=== PATIENT | male | born 1995 | race African-American/Black ===

== ENCOUNTER 2020-03-17 23:38 | Emergency (ER) | payer MEDICAID ==
[~2020-03-17] VITALS: Ht 195 cm; Wt 102.0 kg
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
[2020-03-18 00:34] LABS: BASOPHILS % (AUTO) 0 % (0-10); EOSINOPHILS # (AUTO) 0.2 10^3/uL (0.0-0.3); EOSINOPHILS % (AUTO) 3 % (0-10); HEMATOCRIT 43 % (40-54); HEMOGLOBIN 14.7 G/DL (13.3-17.7); LYMPHOCYTES % (AUTO) 47 % (12-44); MEAN CORPUSCULAR HEMOGLOBIN 30 PG (25-34); MEAN CORPUSCULAR HGB CONC 35 G/DL (32-36); MEAN CORPUSCULAR VOLUME 87 FL (80-99); MEAN PLATELET VOLUME 11.3 FL (7.4-10.4); MONOCYTES # (AUTO) 0.7 X 10^3 (0.0-1.0); MONOCYTES % (AUTO) 8 % (0-12); NEUTROPHILS # (AUTO) 3.6 X 10^3 (1.8-7.8); NEUTROPHILS % (AUTO) 42 % (42-75); PLATELET COUNT 223 10^3/uL (130-400); RED CELL DISTRIBUTION WIDTH 12.8 % (10.0-14.5); WHITE BLOOD COUNT 8.6 10^3/uL (4.3-11.0)
[2020-03-18 00:41] LABS: ALBUMIN 3.9 GM/DL (3.2-4.5); CHLORIDE 105 MMOL/L (98-107); POTASSIUM 3.9 MMOL/L (3.6-5.0); SODIUM 141 MMOL/L (135-145)
[2020-03-18 00:42] LABS: CALCIUM 9.1 MG/DL (8.5-10.1)
[2020-03-18 00:43] LABS: GLUCOSE 87 MG/DL (70-105)
[2020-03-18 00:44] LABS: CARBON DIOXIDE 25 MMOL/L (21-32); TOTAL PROTEIN 7.1 GM/DL (6.4-8.2)
[2020-03-18 00:45] LABS: BILIRUBIN,TOTAL 0.6 MG/DL (0.1-1.0)
[2020-03-18 00:47] LABS: ALKALINE PHOSPHATASE 50 U/L (40-136); CREATININE SERUM 1.03 MG/DL (0.60-1.30); GFR ESTIMATED > 60
[2020-03-18 00:48] LABS: BUN/CREATININE RATIO 7
[2020-03-18 00:50] LABS: ALANINE AMINOTRANSFERASE 20 U/L (0-55)
[2020-03-18] MEDS ORDERED: MELO15TA14 PO (01:55)
[2020-03-18 01:59] LABS: BILIRUBIN,URINE NEGATIVE (NEGATIVE); CLARITY,URINE SL CLOUDY; COLOR,URINE YELLOW; GLUCOSE, URINE (UA) NEGATIVE (NEGATIVE); KETONES,URINE NEGATIVE (NEGATIVE); LEUKOCYTE ESTERASE ,URINE NEGATIVE (NEGATIVE); NITRITE,URINE NEGATIVE (NEGATIVE); PROTEIN,URINE NEGATIVE (NEGATIVE)
[2020-03-18 02:05] VITALS: BP 129/62
[2020-03-18 02:05] LABS: BACTERIA,URINE NEGATIVE /HPF; SQUAMOUS EPITHELIAL CELL,UR RARE /HPF; WBC,URINE 0-2 /HPF
[2020-03-18 02:11] LABS: AMPHETAMINE SCREEN, URINE POSITIVE (NEGATIVE); BARBITURATE SCREEN URINE NEGATIVE (NEGATIVE); BENZODIAZEPINES SCREEN URINE NEGATIVE (NEGATIVE); CANNABINOID SCREEN, URINE POSITIVE (NEGATIVE); COCAINE SCREEN URINE NEGATIVE (NEGATIVE); METHADONE STAT NEGATIVE (NEGATIVE); METHAMPHETAMINE SCREEN URINE S POSITIVE (NEGATIVE); OPIATE SCREEN URINE NEGATIVE (NEGATIVE); OXYCODONE STAT NEGATIVE (NEGATIVE); PROPOXYPHENE STAT NEGATIVE (NEGATIVE); TRICYCLIC ANTIDEPRESSANTS SCRE NEGATIVE (NEGATIVE)
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
--- OUTSIDE RECORDS SUMMARY | 2020-03-18 15:22 | XMS REPORT ---
Author Author Jose Cruz Mercer Doctor Organization [facility] Address Unknown Phone Unavailable Care Team Providers Care Traffic Incident Management Manager Name Role Phone Migration, Doctor Unavailable Unavailable PROBLEMS Type Condition ICD9-CM Code VSM96-IV Code Onset Dates Condition S tatus SNOMED Code Problem Moderate intellectual disability F71 Active 10701732 Problem Attention-deficit hyperactiv ity disorder, predominantly inattentive type F90.0 Active 90122322 Problem Intermittent explosive disorder F63.81 Active 18830785 Problem Bipolar disorder, currently in remission, most recent episode unspecified F31.70 Active [id number] ALLERGIES No Information ENCOUNTERS Encounter Location Date Diagnosis [place] [address] [place] [id number] [place] [address] Oct, [place] [address] [place] [id number] [place] [address] Sep, Intermittent explosive disor jocelyn F63.81 ; Bipolar disorder, currently in remission, most recent episode unspecified F31.70 ; Attention- deficit hyperactivity disorder, predominantly inattentive type F90.0 ; Moderate intellectual disability F71 ; Encounter to establish care Z76.89 and Abrasion, left lower leg, sequela S80.812S [place] [address] [place] [id number] [place] [address] 15 Sep, 2019 [place] [address] [place] [id number] [place] [address] 06 Sep, 2019 Annual physical exam Z00.00 ; Abrasion of left lower leg, initial encounter S80.812A ; Cellulitis of left lower leg L03.116 ; Attention deficit hyperactivity disorder F90.9 ; Intermittent explosive disorder F63.81 and Intellectual disability F79 [place] [address] [place] [id number] [place] [address] Jul, Bipolar disorder F31.9 [place] [address] [place] [id number] [place] [address] Jul, Acute gastroenteritis K52.9 ; Intellectual disability F79 and Bipolar disorder F31.9 [facility] [address] [id number] [address] [place] [address] Jun, [facility] [address] [facility] [id number] [address] [place] [address] Jun, Bipolar disorder F31.9 [facility] [address] [facility] [id number] [address] [place] [address] May, Bipolar disorder F31.9 ; Int ellectual disability F79 and Attention- deficit hyperactivity disorder, predominantly inattentive type F90.0 [facility] [address] [facility] [id number] [address] [place] [address] May, [facility] [address] [facility] [id number] [address] [place] [address] May, Bipolar disorder F31.9 [facility] [address] [facility] [id number] [address] [place] [address] May, Bipolar disorder F31.9 ; Att ention-deficit hyperactivity disorder, predominantly inattentive type F90.0 and Moderate intellectual disability F71 [facility] [address] [facility] [id number] [address] [place] [address] Apr, Bipolar disorder F31.9 [facility] [address] [facility] [id number] [address] [place] [address] Apr, Bipolar disorder F31.9 and H igh risk medication use Z79.899 [facility] [address] [facility] [id number] [address] [place] [address] March, Bipolar disorder F31.9 and H igh risk medication use Z79.899 [facility] [address] [facility] [id number] [address] [place] [address] March, Bipolar disorder F31.9 [facility] [address] [place] [id number] [place] [address] March, Caries K02.9 [facility] [address] [id number] [address] [place] [address] March, Bipolar disorder F31.9 [facility] [address] [id number] [address] [place] [address] March, Bipolar disorder F31.9 [facility] [address] [id number] [address] [place] [address] Feb, Bipolar disorder F31.9 [facility] [address] [id number] [address] [place] [address] Feb, Bipolar disorder F31.9 ; Att ention-deficit hyperactivity disorder, predominantly inattentive type F90.0 and Moderate intellectual disability F71 [facility] [address] [id number] [address] [place] [address] Jan, Bipolar disorder F31.9 [place] [id number] [id number] [address] [place] [address] Jan, Bipolar disorder F31.9 [facility] [address] [id number] [address] [place] [address] Jan, Dental examination Z01.20 ; 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 status requiring routine preventive dental care K08.9 and Caries K02.9 [facility] [address] [id number] [address] [place] [address] Jan, [facility] [address] [id number] [address] [place] [address] Jan, Bipolar disorder F31.9 ; Mod erate intellectual disability F71 and Attention-deficit hyperactivity disorder, predominantly inattentive type F90.0 [facility] [address] [id number] [address] [place] [address] Dec, Bipolar disorder, currently in remission, most recent episode unspecified F31.70 [facility] [address] [id number] [address] [place] [address] Dec, Bipolar disorder, currently in remission, most recent episode unspecified F31.70 [facility] [address] [id number] [address] [place] [address] Dec, Bipolar disorder, currently in remission, most recent episode unspecified F31.70 [facility] [address] [id number] [address] [place] [address] Dec, [facility] [address] [id number] [address] [place] [address] Dec, Bipolar disorder, currently in remission, most recent episode unspecified F31.70 [facility] [address] [id number] [address] [place] [address] Nov, Bipolar disorder, currently in remission, most recent episode unspecified F31.70 [facility] [address] [id number] [address] [place] [address] Nov, [facility] [address] [id number] [address] [place] [address] Nov, [facility] [address] [id number] [address] [place] [address] Nov, Bipolar disorder, currently in remission, most recent episode unspecified F31.70 [facility] [address] [id number] [address] [place] [address] Nov, Bipolar disorder, currently in remission, most recent episode unspecified F31.70 [facility] [address] [id number] [address] [place] [address] Oct, High risk medication use Z79 .899 ; Bipolar disorder F31.9 ; Moderate intellectual disability F71 and Attention-deficit hyperactivity disorder, predominantly inattentive type F90.0 [facility] [address] [id number] [address] [place] [address] Oct, [facility] [address] [id number] [address] [place] [address] Sep, Bipolar disorder, currently in remission, most recent episode unspecified F31.70 [facility] [address] [id number] [address] [place] [id number] Sep, 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 stat us requiring routine preventive dental care K08.9 and Arrested dental caries K02.3 [facility] [address] [id number] [address] [place] [address] Sep, Bipolar disorder, currently in remission, most recent episode unspecified F31.70 ; Moderate intellectual disability F71 and Attention-deficit hyperactivity disorder, predominantly inattentive type F90.0 [facility] [address] [id number] [address] [place] [address] 12 Sep, 2018 Bipolar disorder, currently in remission, most recent episode unspecified F31.70 [facility] [address] [id number] [address] [place] [address] 15 Aug, 2018 Bipolar disorder, currently in remission, most recent episode unspecified F31.70 [facility] [address] [id number] [address] [place] [address] Jul, Bipolar disorder, currently in remission, most recent episode unspecified F31.70 [facility] [address] [id number] [address] [place] [address] 11 Jul, 2018 Bipolar disorder, currently in remission, most recent episode unspecified F31.70 [facility] [address] [id number] [address] [place] [address] 14 Jun, 2018 [facility] [address] [id number] [address] [place] [address] Jun, Bipolar disorder, currently in remission, most recent episode unspecified F31.70 [facility] [address] [id number] [address] [place] [address] [id number] 08 Jun, 2018 Dental examination Z01.20 an d Dental caries K02.9 [facility] [address] [id number] [address] [place] [address] May, Bipolar disorder, currently in remission, most recent episode unspecified F31.70 [facility] [address] [id number] [address] [place] [address] May, Bipolar disorder, currently in remission, most recent episode unspecified F31.70 [facility] [address] [id number] [address] [place] [address] May, Bipolar disorder, currently in remission, most recent episode unspecified F31.70 ; Moderate intellectual disability F71 and Attention-deficit hyperactivity disorder, predominantly inattentive type F90.0 [facility] [address] [id number] [address] [place] [address] Apr, Bipolar disorder, unspecifie d F31.9 [facility] [address] [id number] [address] [place] [address] Apr, [facility] [address] [id number] [address] [place] [address] Apr, [facility] [address] [id number] [address] [place] [address] Apr, [facility] [address] [id number] [address] [place] [address] March, [facility] [address] [id number] [address] [place] [address] March, Bipolar disorder, currently in remission, most recent episode unspecified F31.70 ; Moderate intellectual disability F71 and Attention-deficit hyperactivity disorder, predominantly inattentive type F90.0 [facility] [address] [id number] [address] [place] [address] Feb, [facility] [address] [id number] [address] [place] [address] [id number] Feb, Dental examination Z01.20 [facility] [address] [id number] [address] [place] [address] Jan, [facility] [address] [id number] [address] [place] [address] Jan, [facility] [address] [id number] [address] [place] [address] Dec, [facility] [address] [id number] [address] [place] [address] Nov, [facility] [address] [id number] [address] [place] [address] [id number] Nov, Encounter for dental exam an d cleaning w/o abnormal findings Z01.20 [facility] [address] [id number] [address] [place] [id number] Nov, Dental examination Z01.20 [facility] [address] [id number] [address] [place] [address] Oct, [facility] [address] [id number] [address] [place] [address] Oct, Bipolar disorder, currently in remission, most recent episode unspecified F31.70 ; Moderate intellectual disability F71 and Attention-deficit hyperactivity disorder, predominantly inattentive type F90.0 [facility] [address] [id number] [address] [place] [address] Sep, [facility] [address] [id number] [address] [place] [address] Sep, [facility] [address] [id number] [address] [place] [address] Aug, [facility] [address] [id number] [address] [place] [address] Aug, Attention-deficit hyperactiv ity disorder, predominantly inattentive type F90.0 ; Moderate intellectual disability F71 and Bipolar disorder F31.9 [facility] [address] [id number] [address] [place] [id number] Jul, Dental examination Z01.20 an d Dental caries K02.9 [facility] [address] [id number] [address] [place] [address] Jul, [facility] [address] [id number] [address] [place] [address] Jun, Bipolar disorder F31.9 ; Att ention-deficit hyperactivity disorder, predominantly inattentive type F90.0 and Moderate intellectual disability F71 [facility] [address] [facility] [id number] [address] [place] [address] 11 Jun, 2017 [facility] [address] [facility] [id number] [address] [place] [id number] 17 May, 2017 [facility] [address] [facility] [id number] [address] [place] [address] Apr, [facility] [address] [facility] [id number] [address] [place] [address] March, Intermittent explosive disor jocelyn F63.81 ; Attention deficit hyperactivity disorder F90.9 and Bipolar disorder F31.9 [facility] [address] [facility] [id number] [address] [place] [address] Feb, [facility] [address] [facility] [id number] [address] [place] [address] Jan, [facility] [address] [place] [id number] [address] [place] [address] 13 Dec, 2016 Encounter for immunization Z 23 [facility] [address] [place] [id number] [address] [place] [address] 13 Dec, 2016 Intermittent explosive disor jocelyn F63.81 ; Attention deficit hyperactivity disorder F90.9 and Bipolar disorder, currently in remission, most recent episode unspecified F31.70 [facility] [address] [facility] [id number] [address] [place] [address] Nov, [facility] [address] [facility] [id number] [address] [place] [address] Oct, [facility] [address] [facility] [id number] [address] [place] [address] Oct, [facility] [address] [id number] [address] [place] [address] [id number] Oct, Dental examination Z01.20 [facility] [address] [facility] [id number] [address] [place] [address] Sep, [facility] [address] [id number] [address] [place] [address] Sep, [facility] [address] [id number] [address] [place] [address] Sep, Intermittent explosive disor jocelyn F63.81 ; Bipolar disorder F31.9 and Attention deficit hyperactivity disorder F90.9 [facility] [address] [id number] [address] [place] [address] Aug, [facility] [address] [id number] [address] [place] [address] Aug, [facility] [address] [id number] [address] [place] [address] Aug, [facility] [address] [facility] [id number] [address] [place] [address] Aug, Attention deficit hyperactiv ity disorder F90.9 [facility] [address] [id number] [address] [place] [address] Jul, [facility] [address] [id number] [address] [place] [address] Jun, [facility] [address] [id number] [address] [place] [address] May, [facility] [address] [id number] [address] [place] [address] Apr, [facility] [address] [id number] [address] [place] [address] Apr, Bipolar disorder F31.9 ; Att ention deficit hyperactivity disorder F90.9 and Intermittent explosive disorder F63.81 [facility] [address] [id number] [address] [place] [address] March, [facility] [address] [id number] [address] [place] [address] Feb, [facility] [address] [id number] [address] [place] [address] Feb, [facility] [address] [facility] [id number] [address] [place] [address] Jan, [facility] [address] [facility] [id number] [address] [place] [address] Jan, [facility] [address] [facility] [id number] [address] [place] [address] Dec, [facility] [address] [facility] [id number] [address] [place] [address] Nov, [facility] [address] [facility] [id number] [address] [place] [address] Nov, [facility] [address] [facility] [id number] [address] [place] [address] Nov, Attention deficit hyperactiv ity disorder F90.9 ; Intermittent explosive disorder F63.81 and Bipolar disorder F31.9 [facility] [address] [facility] [id number] [address] [place] [address] Oct, [facility] [address] [facility] [id number] [address] [place] [address] Oct, [facility] [address] [facility] [id number] [address] [place] [address] Sep, [facility] [address] [facility] [id number] [address] [place] [address] Aug, [facility] [address] [facility] [id number] [address] [place] [address] Jul, [facility] [address] [facility] [id number] [address] [place] [address] Jul, [facility] [address] [facility] [id number] [address] [place] [address] Jul, Anxiety, generalized 300.02 ; Bipolar disorder, unspecified 296.80 ; 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.00 ; 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 and Impulse control disorder, unspecified 312.30 [facility] [address] [id number] [address] [place] [address] Jul, [facility] [address] [facility] [id number] [address] [place] [address] Jun, [facility] [address] [facility] [id number] [address] [place] [address] May, [facility] [address] [id number] [address] [place] [address] Apr, [facility] [address] [id number] [address] [place] [address] Apr, Bipolar disorder, unspecifie d 296.80 ; Generalized anxiety disorder 300.02 and 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.00 [facility] [address] [facility] [id number] [address] [place] [address] Apr, [facility] [address] [id number] [address] [place] [address] March, [facility] [address] [id number] [address] [place] [address] March, [facility] [address] [facility] [id number] [address] [place] [address] March, [facility] [address] [facility] [id number] [address] [place] [address] March, [facility] [address] [id number] [address] [place] [address] Feb, [facility] [address] [id number] [address] [place] [address] Feb, [facility] [address] [facility] [id number] [address] [place] [address] Jan, [facility] [address] [facility] [id number] [address] [place] [address] Jan, [facility] [address] [id number] [address] [place] [address], [place] [address] Jan, [facility] [address] [id number] [address] [place] [address], [place] [address] Jan, [facility] [address] [id number] [address] [place] [address], [place] [address] Jan, [facility] [address] [id number] [address] [place] [address], [place] [address] Dec, [facility] [address] [id number] [address] [place] [address], [place] [address] Dec, [facility] [address] [id number] [address] [place] [address], [place] [address] Nov, [facility] [address] [id number] [address] [place] [address], [place] [address] Nov, [facility] [address] [id number] [address] [place] [address], [place] [address] Nov, [facility] [address] [id number] [address] [place] [address], [place] [address] Oct, [facility] [address] [id number] [address] [place] [address], [place] [address] Oct, [facility] [address] [id number] [address] [place] [address], [place] [address] Oct, [facility] [address] [id number] [address] [place] [address], [place] [address] Oct, [facility] [address] [id number] [address] [place] [address], [place] [address] Oct, [facility] [address] [id number] [address] [place] [address], [place] [address] Oct, [facility] [address] [id number] [address] [place] [address], [place] [address] Sep, [facility] [address] [id number] [address] [place] [address], [place] [address] Sep, [facility] [address] [id number] [address] [place] [address], [place] [address] Sep, [facility] [address] [id number] [address] [place] [address], [place] [address] Aug, [facility] [address] [id number] [address] [place] [address], [place] [address] Aug, [facility] [address] [id number] [address] [place] [address], [place] [address] Jul, [facility] [address] [id number] [address] [place] [address], [place] [address] Jul, [facility] [address] [id number] [address] [place] [address], [place] [address] Jun, [facility] [address] [id number] [address] [place] [address], [place] [address] Jun, [facility] [address] [id number] [address] [place] [address], [place] [address] Jun, [facility] [address] [id number] [address] [place] [address], [place] [address] Jun, [facility] [address] [id number] [address] [place] [address], [place] [address] May, [facility] [address] [id number] [address] [place] [address], [place] [address] May, [facility] [address] [id number] [address] [place] [address], [place] [address] May, [facility] [address] [id number] [address] [place] [address], [place] [address] Apr, [facility] [address] [id number] [address] [place] [address], [place] [address] Apr, [facility] [address] [id number] [address] [place] [address], [place] [address] Apr, [facility] [address] [id number] [address] [place] [address], [place] [address] Apr, [facility] [address] [id number] [address] [place] [address], [place] [address] March, [facility] [address] [id number] [address] [place] [address], [place] [address] March, [facility] [address] [id number] [address] [place] [address], [place] [address] March, [facility] [address] [id number] [address] [place] [address], [place] [address] March, [facility] [address] [id number] [address] [place] [address], [place] [address] Feb, [facility] [address] [id number] [address] [place] [address], [place] [address] Feb, [facility] [address] [id number] [address] [place] [address], [place] [address] Jan, [facility] [address] [id number] [address] [place] [address], [place] [address] Jan, [facility] [address] [id number] [address] [place] [address], [place] [address] Jan, [facility] [address] [id number] [address] [place] [address], [place] [address] Jan, [facility] [address] [id number] [address] [place] [address], [place] [address] Jan, [facility] [address] [id number] [address] [place] [address], [place] [address] Jan, [facility] [address] [id number] [address] [place] [address], [place] [address] Jan, [facility] [address] [id number] [address] [place] [address], [place] [address] Jan, [facility] [address] [id number] [address] [place] [address], [place] [address] Dec, [facility] [address] [id number] [address] [place] [address], [place] [address] Dec, [facility] [address] [id number] [address] [place] [address], [place] [address] Dec, [facility] [address] [id number] [address] [place] [address], [place] [address] Dec, [facility] [address] [id number] [address] [place] [address], [place] [address] Nov, [facility] [address] [id number] [address] [place] [address], [place] [address] Nov, [facility] [address] [id number] [address] [place] [address], [place] [address] Oct, [facility] [address] [id number] [address] [place] [address], [place] [address] Oct, [facility] [address] [id number] [address] [place] [address], [place] [address] Oct, [facility] [address] [id number] [address] [place] [address], [place] [address] Oct, [facility] [address] [id number] [address] [place] [address], [place] [address] Sep, [facility] [address] [id number] [address] [place] [address], [place] [address] Sep, [facility] [address] [id number] [address] [place] [address], [place] [address] Sep, [facility] [address] [id number] [address] [place] [address], [place] [address] Sep, [facility] [address] [id number] [address] [place] [address], [place] [address] Aug, [facility] [address] [id number] [address] [place] [address], [place] [address] Aug, [facility] [address] [id number] [address] [place] [address], [place] [address] Aug, [facility] [address] [id number] [address] [place] [address], [place] [address] Jul, [facility] [address] [id number] [address] [place] [address], [place] [address] Jul, [facility] [address] [id number] [address] [place] [address], [place] [address] Jun, [facility] [address] [id number] [address] [place] [address], [place] [address] Jun, [facility] [address] [id number] [address] [place] [address], [place] [address] May, [facility] [address] [id number] [address] [place] [address], [place] [address] May, [facility] [address] [id number] [address] [place] [address], [place] [address] Apr, [facility] [address] [id number] [address] [place] [address], [place] [address] March, [facility] [address] [id number] [address] [place] [address], [place] [address] March, [facility] [address] [id number] [address] [place] [address], [place] [address] Feb, [facility] [address] [id number] [address] [place] [address], [place] [address] Jan, [facility] [address] [id number] [address] [place] [address], [place] [address] Jan, [facility] [address] [id number] [address] [place] [address], [place] [address] Dec, [facility] [address] [id number] [address] [place] [address], [place] [address] Dec, [facility] [address] [id number] [address] [place] [address], [place] [address] Nov, [facility] [address] [id number] [address] [place] [address], [place] [address] Nov, [facility] [address] [id number] [address] [place] [address], [place] [address] Nov, [facility] [address] [id number] [address] [place] [address], [place] [address] Nov, [facility] [address] [id number] [address] [place] [address], [place] [address] Nov, [facility] [address] [id number] [address] [place] [address], [place] [address] Oct, [facility] [address] [id number] [address] [place] [address], [place] [address] Oct, [facility] [address] [id number] [address] [place] [address], [place] [address] Oct, [facility] [address] [id number] [address] [place] [address], [place] [address] Oct, [facility] [address] [id number] [address] [place] [address], [place] [address] Oct, [facility] [address] [id number] [address] [place] [address], [place] [address] Oct, [facility] [address] [id number] [address] [place] [address], [place] [address] 05 Oct, 2012 [facility] [address] [id number] [address] [place] [address], [place] [address] Oct, [facility] [address] [id number] [address] [place] [address], [place] [address] Sep, [facility] [address] [id number] [address] [place] [address], [place] [address] Sep, [facility] [address] [id number] [address] [place] [address], [place] [address] Sep, [facility] [address] [id number] [address] [place] [address], [place] [address] Aug, [facility] [address] [id number] [address] [place] [address], [place] [address] 17 Aug, 2012 [facility] [address] [id number] [address] [place] [address], [place] [address] Aug, [facility] [address] [id number] [address] [place] [address], [place] [address] Aug, [facility] [address] [id number] [address] [place] [address], [place] [address] Aug, [facility] [address] [id number] [address] [place] [address], [place] [address] Jul, [facility] [address] [id number] [address] [place] [address], [place] [address] Jul, [facility] [address] [id number] [address] [place] [address], [place] [address] Jun, [facility] [address] [id number] [address] [place] [address], [place] [address] May, [facility] [address] [id number] [address] [place] [address], [place] [address] May, [facility] [address] [id number] [address] [place] [address], [place] [address] Apr, [facility] [address] [id number] [address] [place] [address], [place] [address] March, [facility] [address] [id number] [address] [place] [address], [place] [address] March, [facility] [address] [id number] [address] [place] [address], [place] [address] March, [facility] [address] [id number] [address] [place] [address], [place] [address] March, [facility] [address] [id number] [address] [place] [address], [place] [address] Feb, [facility] [address] [id number] [address] [place] [address] Feb, [facility] [address] [id number] [address] [place] [address] Jan, [facility] [address] [id number] [address] [place] [address] Dec, [facility] [address] [id number] [address] [place] [address] Dec, [facility] [address] [id number] [address] [place] [address] Dec, [facility] [address] [id number] [address] [place] [address] Nov, [facility] [address] [id number] [address] [place] [address] Nov, [facility] [address] [id number] [address] [place] [address] Nov, [facility] [address] [id number] [address] [place] [address] Oct, [facility] [address] [id number] [address] [place] [address] Sep, [facility] [address] [id number] [address] [place] [address] Aug, [facility] [address] [id number] [address] [place] [address] Aug, [facility] [address] [id number] [address] [place] [address] May, [facility] [address] [id number] [address] [place] [address] Sep, [facility] [address] [id number] [address] [place] [address] Sep, IMMUNIZATIONS No Known Immunizations SOCIAL HISTORY Never Assessed REASON FOR VISIT PLAN OF CARE VITAL SIGNS MEDICATIONS Unknown Medications RESULTS No Results PROCEDURES No Known procedures INSTRUCTIONS MEDICATIONS ADMINISTERED No Known Medications MEDICAL (GENERAL) HISTORY Type Description Date Medical History bipolar Medical History adhd Medical History anxiety Medical History Intermittent explosive disorder Medical History Bipolar disorder Medical History Intellectual disability Surgical History No Surgical history information
--- OUTSIDE RECORDS SUMMARY | 2020-03-18 15:22 | XMS REPORT ---
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 Active 74931613 Problem Attention-deficit hyperactiv ity disorder, predominantly inattentive type F90.0 Active 45169867 Problem Intermittent explosive disorder F63.81 Active 75600141 Problem Bipolar disorder, currently in remission, most recent episode unspecified F31.70 Active 76642347 ALLERGIES No Information ENCOUNTERS Encounter Location Date Diagnosis [place] [address] [place] [id number] [address] [place] [id number] Oct, [place] [address] [place] [id number] [address] [place] [phone] Sep, Intermittent explosive disor jocelyn F63.81 ; Bipolar disorder, currently in remission, most recent episode unspecified F31.70 ; Attention- deficit hyperactivity disorder, predominantly inattentive type F90.0 ; Moderate intellectual disability F71 ; Encounter to establish care Z76.89 and Abrasion, left lower leg, sequela S80.812S [place] [address] [place] [id number] [address] [place] [id number] 15 Sep, 2019 [place] [address] [place] [id number] [address] [place] [id number] 06 Sep, 2019 Annual physical exam Z00.00 ; Abrasion of left lower leg, initial encounter S80.812A ; Cellulitis of left lower leg L03.116 ; Attention deficit hyperactivity disorder F90.9 ; Intermittent explosive disorder F63.81 and Intellectual disability F79 [place] [address] [place] [id number] [address] [place] [address] Jul, Bipolar disorder F31.9 [place] [address] [place] [id number] [address] [place] [phone] Jul, Acute gastroenteritis K52.9 ; Intellectual disability F79 and Bipolar disorder F31.9 [facility] [address] [id number] [address] [place] [id number] Jun, [facility] [address] [facility] [id number] [address] [place] [id number] Jun, Bipolar disorder F31.9 [facility] [address] [facility] [id number] [address] [place] [id number] May, Bipolar disorder F31.9 ; Int ellectual disability F79 and Attention- deficit hyperactivity disorder, predominantly inattentive type F90.0 [facility] [address] [facility] [id number] [address] [place] [phone] May, [facility] [address] [facility] [id number] [address] [place] [address] May, Bipolar disorder F31.9 [facility] [address] [facility] [id number] [address] [place] [phone] May, Bipolar disorder F31.9 ; Att ention-deficit hyperactivity disorder, predominantly inattentive type F90.0 and Moderate intellectual disability F71 [facility] [address] [facility] [id number] [address] [place] [id number] Apr, Bipolar disorder F31.9 [facility] [address] [facility] [id number] [address] [place] [phone] Apr, Bipolar disorder F31.9 and H igh risk medication use Z79.899 [facility] [address] [facility] [id number] [address] [place] [id number] March, Bipolar disorder F31.9 and H igh risk medication use Z79.899 [facility] [address] [facility] [id number] [address] [place] [id number] March, Bipolar disorder F31.9 [facility] [address] [place] [id number] [place] [phone] March, Caries K02.9 [facility] [address] [id number] [address] [place] [phone] March, Bipolar disorder F31.9 [facility] [address] [id number] [address] [place] [id number] March, Bipolar disorder F31.9 [facility] [address] [id number] [address] [place] [id number] Feb, Bipolar disorder F31.9 [facility] [address] [id number] [address] [place] [id number] Feb, Bipolar disorder F31.9 ; Att ention-deficit hyperactivity disorder, predominantly inattentive type F90.0 and Moderate intellectual disability F71 [facility] [address] [id number] [address] [place] [phone] Jan, Bipolar disorder F31.9 [place] [address] [id number] [address] [place] [phone] Jan, Bipolar disorder F31.9 [facility] [address] [id number] [address] [place] [address] Jan, Dental examination Z01.20 ; 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 status requiring routine preventive dental care K08.9 and Caries K02.9 [facility] [address] [id number] [address] [place] [id number] Jan, [facility] [address] [id number] [address] [place] [id number] Jan, Bipolar disorder F31.9 ; Mod erate intellectual disability F71 and Attention-deficit hyperactivity disorder, predominantly inattentive type F90.0 [facility] [address] [id number] [address] [place] [id number] Dec, Bipolar disorder, currently in remission, most recent episode unspecified F31.70 [facility] [address] [id number] [address] [place] [phone] Dec, Bipolar disorder, currently in remission, most recent episode unspecified F31.70 [facility] [address] [id number] [address] [place] [id number] Dec, Bipolar disorder, currently in remission, most recent episode unspecified F31.70 [facility] [address] [id number] [address] [place] [id number] Dec, [facility] [address] [id number] [address] [place] [phone] Dec, Bipolar disorder, currently in remission, most recent episode unspecified F31.70 [facility] [address] [id number] [address] [place] [id number] Nov, Bipolar disorder, currently in remission, most recent episode unspecified F31.70 [facility] [address] [id number] [address] [place] [id number] Nov, [facility] [address] [id number] [address] [place] [id number] Nov, [facility] [address] [id number] [address] [place] [id number] Nov, Bipolar disorder, currently in remission, most recent episode unspecified F31.70 [facility] [address] [id number] [address] [place] [id number] Nov, Bipolar disorder, currently in remission, most recent episode unspecified F31.70 [facility] [address] [id number] [address] [place] [id number] Oct, High risk medication use Z79 .899 ; Bipolar disorder F31.9 ; Moderate intellectual disability F71 and Attention-deficit hyperactivity disorder, predominantly inattentive type F90.0 [facility] [address] [id number] [address] [place] [phone] Oct, [facility] [address] [id number] [address] [place] [address] Sep, Bipolar disorder, currently in remission, most recent episode unspecified F31.70 [facility] [address] [id number] [address] [place] [address] [id number] Sep, 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 stat us requiring routine preventive dental care K08.9 and Arrested dental caries K02.3 [facility] [address] [id number] [address] [place] [id number] Sep, Bipolar disorder, currently in remission, most recent episode unspecified F31.70 ; Moderate intellectual disability F71 and Attention-deficit hyperactivity disorder, predominantly inattentive type F90.0 [facility] [address] [id number] [address] [place] [id number] 12 Sep, 2018 Bipolar disorder, currently in remission, most recent episode unspecified F31.70 [facility] [address] [id number] [address] [place] [id number] 15 Aug, 2018 Bipolar disorder, currently in remission, most recent episode unspecified F31.70 [facility] [address] [id number] [address] [place] [id number] Jul, Bipolar disorder, currently in remission, most recent episode unspecified F31.70 [facility] [address] [id number] [address] [place] [id number] 11 Jul, 2018 Bipolar disorder, currently in remission, most recent episode unspecified F31.70 [facility] [address] [id number] [address] [place] [id number] 14 Jun, 2018 [facility] [address] [id number] [address] [place] [id number] Jun, Bipolar disorder, currently in remission, most recent episode unspecified F31.70 [facility] [address] [id number] [address] [place] [address] [id number] 08 Jun, 2018 Dental examination Z01.20 an d Dental caries K02.9 [facility] [address] [id number] [address] [place] [phone] May, Bipolar disorder, currently in remission, most recent episode unspecified F31.70 [facility] [address] [id number] [address] [place] [address] May, Bipolar disorder, currently in remission, most recent episode unspecified F31.70 [facility] [address] [id number] [address] [place] [id number] May, Bipolar disorder, currently in remission, most recent episode unspecified F31.70 ; Moderate intellectual disability F71 and Attention-deficit hyperactivity disorder, predominantly inattentive type F90.0 [facility] [address] [id number] [address] [place] [id number] Apr, Bipolar disorder, unspecifie d F31.9 [facility] [address] [id number] [address] [place] [phone] Apr, [facility] [address] [id number] [address] [place] [id number] Apr, [facility] [address] [id number] [address] [place] [phone] Apr, [facility] [address] [id number] [address] [place] [id number] March, [facility] [address] [id number] [address] [place] [id number] March, Bipolar disorder, currently in remission, most recent episode unspecified F31.70 ; Moderate intellectual disability F71 and Attention-deficit hyperactivity disorder, predominantly inattentive type F90.0 [facility] [address] [id number] [address] [place] [phone] Feb, [facility] [address] [id number] [address] [place] [id number] Feb, Dental examination Z01.20 [facility] [address] [id number] [address] [place] [id number] Jan, [facility] [address] [id number] [address] [place] [phone] Jan, [facility] [address] [id number] [address] [place] [phone] Dec, [facility] [address] [id number] [address] [place] [phone] Nov, [facility] [address] [id number] [address] [place] [address] [id number] Nov, Encounter for dental exam an d cleaning w/o abnormal findings Z01.20 [facility] [address] [id number] [address] [place] [id number] Nov, Dental examination Z01.20 [facility] [address] [id number] [address] [place] [id number] Oct, [facility] [address] [id number] [address] [place] [id number] Oct, Bipolar disorder, currently in remission, most recent episode unspecified F31.70 ; Moderate intellectual disability F71 and Attention-deficit hyperactivity disorder, predominantly inattentive type F90.0 [facility] [address] [id number] [address] [place] [id number] Sep, [facility] [address] [id number] [address] [place] [phone] Sep, [facility] [address] [id number] [address] [place] [phone] Aug, [facility] [address] [id number] [address] [place] [id number] Aug, Attention-deficit hyperactiv ity disorder, predominantly inattentive type F90.0 ; Moderate intellectual disability F71 and Bipolar disorder F31.9 [facility] [address] [id number] [address] [place] [id number] Jul, Dental examination Z01.20 an d Dental caries K02.9 [facility] [address] [id number] [address] [place] [phone] Jul, [facility] [address] [id number] [address] [place] [address] Jun, Bipolar disorder F31.9 ; Att ention-deficit hyperactivity disorder, predominantly inattentive type F90.0 and Moderate intellectual disability F71 [facility] [address] [facility] [id number] [address] [place] [phone] 11 Jun, 2017 [facility] [address] [facility] [id number] [address] [place] [id number] 17 May, 2017 [facility] [address] [facility] [id number] [address] [place] [phone] Apr, [facility] [address] [facility] [id number] [address] [place] [id number] March, Intermittent explosive disor jocelyn F63.81 ; Attention deficit hyperactivity disorder F90.9 and Bipolar disorder F31.9 [facility] [address] [facility] [id number] [address] [place] [phone] Feb, [facility] [address] [facility] [id number] [address] [place] [id number] Jan, [facility] [address] [place] [id number] [address] [place] [id number] 13 Dec, 2016 Encounter for immunization Z 23 [facility] [address] [place] [id number] [address] [place] [id number] 13 Dec, 2016 Intermittent explosive disor jocelyn F63.81 ; Attention deficit hyperactivity disorder F90.9 and Bipolar disorder, currently in remission, most recent episode unspecified F31.70 [facility] [address] [facility] [id number] [address] [place] [phone] Nov, [facility] [address] [facility] [id number] [address] [place] [phone] Oct, [facility] [address] [facility] [id number] [address] [place] [phone] Oct, [facility] [address] [id number] [address] [place] [address] [id number] Oct, Dental examination Z01.20 [facility] [address] [facility] [id number] [address] [place] [phone] Sep, [facility] [address] [id number] [address] [place] [id number] Sep, [facility] [address] [id number] [address] [place] [id number] Sep, Intermittent explosive disor jocelyn F63.81 ; Bipolar disorder F31.9 and Attention deficit hyperactivity disorder F90.9 [facility] [address] [id number] [address] [place] [id number] Aug, [facility] [address] [id number] [address] [place] [id number] Aug, [facility] [address] [id number] [address] [place] [phone] Aug, [facility] [address] [facility] [id number] [address] [place] [id number] Aug, Attention deficit hyperactiv ity disorder F90.9 [facility] [address] [id number] [address] [place] [phone] Jul, [facility] [address] [id number] [address] [place] [id number] Jun, [facility] [address] [id number] [address] [place] [phone] May, [facility] [address] [id number] [address] [place] [phone] Apr, [facility] [address] [id number] [address] [place] [phone] Apr, Bipolar disorder F31.9 ; Att ention deficit hyperactivity disorder F90.9 and Intermittent explosive disorder F63.81 [facility] [address] [id number] [address] [place] [id number] March, [facility] [address] [id number] [address] [place] [phone] Feb, [facility] [address] [id number] [address] [place] [id number] Feb, [facility] [address] [facility] [id number] [address] [place] [id number] Jan, [facility] [address] [facility] [id number] [address] [place] [phone] Jan, [facility] [address] [facility] [id number] [address] [place] [id number] Dec, [facility] [address] [facility] [id number] [address] [place] [phone] Nov, [facility] [address] [facility] [id number] [address] [place] [id number] Nov, [facility] [address] [facility] [id number] [address] [place] [phone] Nov, Attention deficit hyperactiv ity disorder F90.9 ; Intermittent explosive disorder F63.81 and Bipolar disorder F31.9 [facility] [address] [facility] [id number] [address] [place] [id number] Oct, [facility] [address] [facility] [id number] [address] [place] [phone] Oct, [facility] [address] [facility] [id number] [address] [place] [phone] Sep, [facility] [address] [facility] [id number] [address] [place] [phone] Aug, [facility] [address] [facility] [id number] [address] [place] [id number] Jul, [facility] [address] [facility] [id number] [address] [place] [address] Jul, [facility] [address] [facility] [id number] [address] [place] [id number] Jul, Anxiety, generalized 300.02 ; Bipolar disorder, unspecified 296.80 ; 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.00 ; 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 and Impulse control disorder, unspecified 312.30 [facility] [address] [id number] [address] [place] [id number] Jul, [facility] [address] [facility] [id number] [address] [place] [address] Jun, [facility] [address] [facility] [id number] [address] [place] [phone] May, [facility] [address] [id number] [address] [place] [id number] Apr, [facility] [address] [id number] [address] [place] [id number] Apr, Bipolar disorder, unspecifie d 296.80 ; Generalized anxiety disorder 300.02 and 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.00 [facility] [address] [facility] [id number] [address] [place] [address] Apr, [facility] [address] [id number] [address] [place] [id number] March, [facility] [address] [id number] [address] [place] [id number] March, [facility] [address] [facility] [id number] [address] [place] [phone] March, [facility] [address] [facility] [id number] [address] [place] [id number] March, [facility] [address] [id number] [address] [place] [phone] Feb, [facility] [address] [id number] [address] [place] [id number] Feb, [facility] [address] [facility] [id number] [address] [place] [phone] Jan, [facility] [address] [facility] [id number] [address] [place] [phone] Jan, [facility] [address] [id number] [address] [place] [address], [place] [id number] Jan, [facility] [address] [id number] [address] [place] [address], [place] [address] Jan, [facility] [address] [id number] [address] [place] [address], [place] [address] Jan, [facility] [address] [id number] [address] [place] [address], [place] [address] Dec, [facility] [address] [id number] [address] [place] [address], [place] [id number] Dec, [facility] [address] [id number] [address] [place] [address], [place] [address] Nov, [facility] [address] [id number] [address] [place] [address], [place] [address] Nov, [facility] [address] [id number] [address] [place] [address], [place] [address] Nov, [facility] [address] [id number] [address] [place] [address], [place] [id number] Oct, [facility] [address] [id number] [address] [place] [address], [place] [id number] Oct, [facility] [address] [id number] [address] [place] [address], [place] [id number] Oct, [facility] [address] [id number] [address] [place] [address], [place] [id number] Oct, [facility] [address] [id number] [address] [place] [address], [place] [id number] Oct, [facility] [address] [id number] [address] [place] [address], [place] [id number] Oct, [facility] [address] [id number] [address] [place] [address], [place] [id number] Sep, [facility] [address] [id number] [address] [place] [address], [place] [id number] Sep, [facility] [address] [id number] [address] [place] [address], [place] [id number] Sep, [facility] [address] [id number] [address] [place] [address], [place] [id number] Aug, [facility] [address] [id number] [address] [place] [address], [place] [id number] Aug, [facility] [address] [id number] [address] [place] [address], [place] [id number] Jul, [facility] [address] [id number] [address] [place] [address], [place] [id number] Jul, [facility] [address] [id number] [address] [place] [address], [place] [id number] Jun, [facility] [address] [id number] [address] [place] [address], [place] [id number] Jun, [facility] [address] [id number] [address] [place] [address], [place] [id number] Jun, [facility] [address] [id number] [address] [place] [address], [place] [id number] Jun, [facility] [address] [id number] [address] [place] [address], [place] [address] May, [facility] [address] [id number] [address] [place] [address], [place] [address] May, [facility] [address] [id number] [address] [place] [address], [place] [address] May, [facility] [address] [id number] [address] [place] [address], [place] [address] Apr, [facility] [address] [id number] [address] [place] [address], [place] [address] Apr, [facility] [address] [id number] [address] [place] [address], [place] [address] Apr, [facility] [address] [id number] [address] [place] [address], [place] [address] Apr, [facility] [address] [id number] [address] [place] [address], [place] [address] March, [facility] [address] [id number] [address] [place] [address], [place] [address] March, [facility] [address] [id number] [address] [place] [address], [place] [address] March, [facility] [address] [id number] [address] [place] [address], [place] [address] March, [facility] [address] [id number] [address] [place] [address], [place] [address] Feb, [facility] [address] [id number] [address] [place] [address], [place] [address] Feb, [facility] [address] [id number] [address] [place] [address], [place] [address] Jan, [facility] [address] [id number] [address] [place] [address], [place] [address] Jan, [facility] [address] [id number] [address] [place] [address], [place] [address] Jan, [facility] [address] [id number] [address] [place] [address], [place] [address] Jan, [facility] [address] [id number] [address] [place] [address], [place] [address] Jan, [facility] [address] [id number] [address] [place] [address], [place] [address] Jan, [facility] [address] [id number] [address] [place] [address], [place] [address] Jan, [facility] [address] [id number] [address] [place] [address], [place] [address] Jan, [facility] [address] [id number] [address] [place] [address], [place] [address] Dec, [facility] [address] [id number] [address] [place] [address], [place] [address] Dec, [facility] [address] [id number] [address] [place] [address], [place] [address] Dec, [facility] [address] [id number] [address] [place] [address], [place] [address] Dec, [facility] [address] [id number] [address] [place] [address], [place] [address] Nov, [facility] [address] [id number] [address] [place] [address], [place] [address] Nov, [facility] [address] [id number] [address] [place] [address], [place] [address] Oct, [facility] [address] [id number] [address] [place] [address], [place] [address] Oct, [facility] [address] [id number] [address] [place] [address], [place] [address] Oct, [facility] [address] [id number] [address] [place] [address], [place] [address] Oct, [facility] [address] [id number] [address] [place] [address], [place] [address] Sep, [facility] [address] [id number] [address] [place] [address], [place] [address] Sep, [facility] [address] [id number] [address] [place] [address], [place] [address] Sep, [facility] [address] [id number] [address] [place] [address], [place] [address] Sep, [facility] [address] [id number] [address] [place] [address], [place] [address] Aug, [facility] [address] [id number] [address] [place] [address], [place] [address] Aug, [facility] [address] [id number] [address] [place] [address], [place] [address] Aug, [facility] [address] [id number] [address] [place] [address], [place] [address] Jul, [facility] [address] [id number] [address] [place] [address], [place] [address] Jul, [facility] [address] [id number] [address] [place] [address], [place] [address] Jun, [facility] [address] [id number] [address] [place] [address], [place] [address] Jun, [facility] [address] [id number] [address] [place] [address], [place] [address] May, [facility] [address] [id number] [address] [place] [address], [place] [address] May, [facility] [address] [id number] [address] [place] [address], [place] [address] Apr, [facility] [address] [id number] [address] [place] [address], [place] [address] March, [facility] [address] [id number] [address] [place] [address], [place] [address] March, [facility] [address] [id number] [address] [place] [address], [place] [address] Feb, [facility] [address] [id number] [address] [place] [address], [place] [address] Jan, [facility] [address] [id number] [address] [place] [address], [place] [address] Jan, [facility] [address] [id number] [address] [place] [address], [place] [address] Dec, [facility] [address] [id number] [address] [place] [address], [place] [address] Dec, [facility] [address] [id number] [address] [place] [address], [place] [address] Nov, [facility] [address] [id number] [address] [place] [address], [place] [address] Nov, [facility] [address] [id number] [address] [place] [address], [place] [address] Nov, [facility] [address] [id number] [address] [place] [address], [place] [address] Nov, [facility] [address] [id number] [address] [place] [address], [place] [address] Nov, [facility] [address] [id number] [address] [place] [address], [place] [address] Oct, [facility] [address] [id number] [address] [place] [address], [place] [address] Oct, [facility] [address] [id number] [address] [place] [address], [place] [address] Oct, [facility] [address] [id number] [address] [place] [address], [place] [address] Oct, [facility] [address] [id number] [address] [place] [address], [place] [address] Oct, [facility] [address] [id number] [address] [place] [address], [place] [address] Oct, [facility] [address] [id number] [address] [place] [address], [place] [address] 05 Oct, 2012 [facility] [address] [id number] [address] [place] [address], [place] [address] Oct, [facility] [address] [id number] [address] [place] [address], [place] [address] Sep, [facility] [address] [id number] [address] [place] [address], [place] [address] Sep, [facility] [address] [id number] [address] [place] [address], [place] [address] Sep, [facility] [address] [id number] [address] [place] [address], [place] [address] Aug, [facility] [address] [id number] [address] [place] [address], [place] [address] 17 Aug, 2012 [facility] [address] [id number] [address] [place] [address], [place] [address] Aug, [facility] [address] [id number] [address] [place] [address], [place] [address] Aug, [facility] [address] [id number] [address] [place] [address], [place] [address] Aug, [facility] [address] [id number] [address] [place] [address], [place] [address] Jul, [facility] [address] [id number] [address] [place] [address], [place] [address] Jul, [facility] [address] [id number] [address] [place] [address], [place] [address] Jun, [facility] [address] [id number] [address] [place] [address], [place] [address] May, [facility] [address] [id number] [address] [place] [address], [place] [address] May, [facility] [address] [id number] [address] [place] [address], [place] [address] Apr, [facility] [address] [id number] [address] [place] [address], [place] [address] March, [facility] [address] [id number] [address] [place] [address], [place] [address] March, [facility] [address] [id number] [address] [place] [address], [place] [address] March, [facility] [address] [id number] [address] [place] [address], [place] [address] March, [facility] [address] [id number] [address] [place] [address], [place] [address] Feb, [facility] [address] [id number] [address] [place] [address] Feb, [facility] [address] [id number] [address] [place] [address] Jan, [facility] [address] [id number] [address] [place] [address] Dec, [facility] [address] [id number] [address] [place] [address] Dec, [facility] [address] [id number] [address] [place] [address] Dec, [facility] [address] [id number] [address] [place] [address] Nov, [facility] [address] [id number] [address] [place] [address] Nov, [facility] [address] [id number] [address] [place] [address] Nov, [facility] [address] [id number] [address] [place] [id number] Oct, [facility] [address] [id number] [address] [place] [address] Sep, [facility] [address] [id number] [address] [place] [id number] Aug, [facility] [address] [id number] [address] [place] [address] Aug, [facility] [address] [id number] [address] [place] [id number] May, [facility] [address] [id number] [address] [place] [address] Sep, [facility] [address] [id number] [address] [place] [id number] Sep, IMMUNIZATIONS No Known Immunizations SOCIAL HISTORY [...]
--- OUTSIDE RECORDS SUMMARY | 2020-03-18 15:22 | XMS REPORT ---
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81 ; Bipolar disorder, currently in remission, most recent episode unspecified F31.70 ; Attention- deficit hyperactivity disorder, predominantly inattentive type F90.0 ; Moderate intellectual disability F71 ; Encounter to establish care Z76.89 and Abrasion, left lower leg, sequela S80.812S [place] [address] [id number] [address] [place] [phone] 15 Sep, 2019 [place] [address] [id number] [address] [place] [phone] 06 Sep, 2019 Annual physical exam Z00.00 ; Abrasion of left lower leg, initial encounter S80.812A ; Cellulitis of left lower leg L03.116 ; Attention deficit hyperactivity disorder F90.9 ; Intermittent explosive disorder F63.81 and Intellectual disability F79 [place] [address] [id number] [address] [place] [phone] Jul, Bipolar disorder F31.9 [place] [address] [place] [place] [id number] [address] [place] [phone] Jul, Acute gastroenteritis K52.9 ; Intellectual disability F79 and Bipolar disorder F31.9 [facility] [address] [id number] [address] [place] [phone] Jun, [facility] [address] [facility] [id number] [address] [place] [phone] Jun, Bipolar disorder F31.9 [facility] [address] [facility] [id number] [address] [place] [phone] May, Bipolar disorder F31.9 ; Int ellectual disability F79 and Attention- deficit hyperactivity disorder, predominantly inattentive type F90.0 [facility] [address] [facility] [id number] [address] [place] [phone] May, [facility] [address] [facility] [id number] [address] [place] [phone] May, Bipolar disorder F31.9 [facility] [address] [facility] [id number] [address] [place] [phone] May, Bipolar disorder F31.9 ; Att ention-deficit hyperactivity disorder, predominantly inattentive type F90.0 and Moderate intellectual disability F71 [facility] [address] [facility] [id number] [address] [place] [phone] Apr, Bipolar disorder F31.9 [facility] [address] [facility] [id number] [address] [place] [phone] Apr, Bipolar disorder F31.9 and H igh risk medication use Z79.899 [facility] [address] [facility] [id number] [address] [place] [phone] March, Bipolar disorder F31.9 and H igh risk medication use Z79.899 [facility] [address] [facility] [id number] [address] [place] [phone] March, Bipolar disorder F31.9 [facility] [address] [place] [id number] [place] [phone] March, Caries K02.9 [facility] [address] [id number] [address] [place] [phone] March, Bipolar disorder F31.9 [facility] [address] [id number] [address] [place] [phone] March, Bipolar disorder F31.9 [facility] [address] [id number] [address] [place] [phone] Feb, Bipolar disorder F31.9 [facility] [address] [id number] [address] [place] [phone] Feb, Bipolar disorder F31.9 ; Att ention-deficit hyperactivity disorder, predominantly inattentive type F90.0 and Moderate intellectual disability F71 [facility] [address] [id number] [address] [place] [phone] Jan, Bipolar disorder F31.9 [place] [id number] [id number] [address] [place] [phone] Jan, Bipolar disorder F31.9 [facility] [address] [id number] [address] [place] [phone] Jan, Dental examination Z01.20 ; 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 status requiring routine preventive dental care K08.9 and Caries K02.9 [facility] [address] [id number] [address] [place] [phone] Jan, [facility] [address] [id number] [address] [place] [id number] Jan, Bipolar disorder F31.9 ; Mod erate intellectual disability F71 and Attention-deficit hyperactivity disorder, predominantly inattentive type F90.0 [facility] [address] [id number] [address] [place] [phone] Dec, Bipolar disorder, currently in remission, most recent episode unspecified F31.70 [facility] [address] [id number] [address] [place] [phone] Dec, Bipolar disorder, currently in remission, most recent episode unspecified F31.70 [facility] [address] [id number] [address] [place] [phone] Dec, Bipolar disorder, currently in remission, most recent episode unspecified F31.70 [facility] [address] [id number] [address] [place] [phone] Dec, [facility] [address] [id number] [address] [place] [phone] Dec, Bipolar disorder, currently in remission, most recent episode unspecified F31.70 [facility] [address] [id number] [address] [place] [phone] Nov, Bipolar disorder, currently in remission, most recent episode unspecified F31.70 [facility] [address] [id number] [address] [place] [phone] Nov, [facility] [address] [id number] [address] [place] [phone] Nov, [facility] [address] [id number] [address] [place] [phone] Nov, Bipolar disorder, currently in remission, most recent episode unspecified F31.70 [facility] [address] [id number] [address] [place] [phone] Nov, Bipolar disorder, currently in remission, most recent episode unspecified F31.70 [facility] [address] [id number] [address] [place] [phone] Oct, High risk medication use Z79 .899 ; Bipolar disorder F31.9 ; Moderate intellectual disability F71 and Attention-deficit hyperactivity disorder, predominantly inattentive type F90.0 [facility] [address] [id number] [address] [place] [phone] Oct, [facility] [address] [id number] [address] [place] [phone] Sep, Bipolar disorder, currently in remission, most recent episode unspecified F31.70 [facility] [address] [id number] [address] [place] [address] [id number] Sep, 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 stat us requiring routine preventive dental care K08.9 and Arrested dental caries K02.3 [facility] [address] [id number] [address] [place] [phone] Sep, Bipolar disorder, currently in remission, most recent episode unspecified F31.70 ; Moderate intellectual disability F71 and Attention-deficit hyperactivity disorder, predominantly inattentive type F90.0 [facility] [address] [id number] [address] [place] [phone] 12 Sep, 2018 Bipolar disorder, currently in remission, most recent episode unspecified F31.70 [facility] [address] [id number] [address] [place] [phone] 15 Aug, 2018 Bipolar disorder, currently in remission, most recent episode unspecified F31.70 [facility] [address] [id number] [address] [place] [phone] Jul, Bipolar disorder, currently in remission, most recent episode unspecified F31.70 [facility] [address] [id number] [address] [place] [phone] 11 Jul, 2018 Bipolar disorder, currently in remission, most recent episode unspecified F31.70 [facility] [address] [id number] [address] [place] [phone] 14 Jun, 2018 [facility] [address] [id number] [address] [place] [phone] Jun, Bipolar disorder, currently in remission, most recent episode unspecified F31.70 [facility] [address] [id number] [address] [place] [address] [id number] 08 Jun, 2018 Dental examination Z01.20 an d Dental caries K02.9 [facility] [address] [id number] [address] [place] [phone] May, Bipolar disorder, currently in remission, most recent episode unspecified F31.70 [facility] [address] [id number] [address] [place] [phone] May, Bipolar disorder, currently in remission, most recent episode unspecified F31.70 [facility] [address] [id number] [address] [place] [phone] May, Bipolar disorder, currently in remission, most recent episode unspecified F31.70 ; Moderate intellectual disability F71 and Attention-deficit hyperactivity disorder, predominantly inattentive type F90.0 [facility] [address] [id number] [address] [place] [phone] Apr, Bipolar disorder, unspecifie d F31.9 [facility] [address] [id number] [address] [place] [phone] Apr, [facility] [address] [id number] [address] [place] [phone] Apr, [facility] [address] [id number] [address] [place] [phone] Apr, [facility] [address] [id number] [address] [place] [phone] March, [facility] [address] [id number] [address] [place] [phone] March, Bipolar disorder, currently in remission, most recent episode unspecified F31.70 ; Moderate intellectual disability F71 and Attention-deficit hyperactivity disorder, predominantly inattentive type F90.0 [facility] [address] [id number] [address] [place] [phone] Feb, [facility] [address] [id number] [address] [place] [id number] Feb, Dental examination Z01.20 [facility] [address] [id number] [address] [place] [phone] Jan, [facility] [address] [id number] [address] [place] [phone] Jan, [facility] [address] [id number] [address] [place] [phone] Dec, [facility] [address] [id number] [address] [place] [phone] Nov, [facility] [address] [id number] [address] [place] [address] [id number] Nov, Encounter for dental exam an d cleaning w/o abnormal findings Z01.20 [facility] [address] [id number] [address] [place] [address] [id number] Nov, Dental examination Z01.20 [facility] [address] [id number] [address] [place] [phone] Oct, [facility] [address] [id number] [address] [place] [phone] Oct, Bipolar disorder, currently in remission, most recent episode unspecified F31.70 ; Moderate intellectual disability F71 and Attention-deficit hyperactivity disorder, predominantly inattentive type F90.0 [facility] [address] [id number] [address] [place] [phone] Sep, [facility] [address] [id number] [address] [place] [phone] Sep, [facility] [address] [id number] [address] [place] [id number] Aug, [facility] [address] [id number] [address] [place] [phone] Aug, Attention-deficit hyperactiv ity disorder, predominantly inattentive type F90.0 ; Moderate intellectual disability F71 and Bipolar disorder F31.9 [facility] [address] [id number] [address] [place] [address] [id number] Jul, Dental examination Z01.20 an d Dental caries K02.9 [facility] [address] [id number] [address] [place] [phone] Jul, [facility] [address] [id number] [address] [place] [phone] Jun, Bipolar disorder F31.9 ; Att ention-deficit hyperactivity disorder, predominantly inattentive type F90.0 and Moderate intellectual disability F71 [facility] [address] [facility] [id number] [address] [place] [phone] 11 Jun, 2017 [facility] [address] [facility] [id number] [address] [place] [phone] 17 May, 2017 [facility] [address] [facility] [id number] [address] [place] [phone] Apr, [facility] [address] [facility] [id number] [address] [place] [phone] March, Intermittent explosive disor jocelyn F63.81 ; Attention deficit hyperactivity disorder F90.9 and Bipolar disorder F31.9 [facility] [address] [facility] [id number] [address] [place] [phone] Feb, [facility] [address] [facility] [id number] [address] [place] [phone] Jan, [facility] [address] [place] [id number] [address] [place] [phone] 13 Dec, 2016 Encounter for immunization Z 23 [facility] [address] [id number] [address] [place] [phone] 13 Dec, 2016 Intermittent explosive disor jocelyn F63.81 ; Attention deficit hyperactivity disorder F90.9 and Bipolar disorder, currently in remission, most recent episode unspecified F31.70 [facility] [address] [facility] [id number] [address] [place] [phone] Nov, [facility] [address] [facility] [id number] [address] [place] [phone] Oct, [facility] [address] [facility] [id number] [address] [place] [phone] Oct, [facility] [address] [id number] [address] [place] [address] [id number] Oct, Dental examination Z01.20 [facility] [address] [facility] [id number] [address] [place] [phone] Sep, [facility] [address] [id number] [address] [place] [phone] Sep, [facility] [address] [id number] [address] [place] [phone] Sep, Intermittent explosive disor jocelyn F63.81 ; Bipolar disorder F31.9 and Attention deficit hyperactivity disorder F90.9 [facility] [address] [id number] [address] [place] [phone] Aug, [facility] [address] [id number] [address] [place] [phone] Aug, [facility] [address] [id number] [address] [place] [phone] Aug, [facility] [address] [facility] [id number] [address] [place] [phone] Aug, Attention deficit hyperactiv ity disorder F90.9 [facility] [address] [id number] [address] [place] [id number] Jul, [facility] [address] [id number] [address] [place] [phone] Jun, [facility] [address] [id number] [address] [place] [phone] May, [facility] [address] [id number] [address] [place] [phone] Apr, [facility] [address] [id number] [address] [place] [phone] Apr, Bipolar disorder F31.9 ; Att ention deficit hyperactivity disorder F90.9 and Intermittent explosive disorder F63.81 [facility] [address] [id number] [address] [place] [phone] March, [facility] [address] [id number] [address] [place] [phone] Feb, [facility] [address] [id number] [address] [place] [phone] Feb, [facility] [address] [facility] [id number] [address] [place] [phone] Jan, [facility] [address] [facility] [id number] [address] [place] [phone] Jan, [facility] [address] [facility] [id number] [address] [place] [phone] Dec, [facility] [address] [facility] [id number] [address] [place] [phone] Nov, [facility] [address] [facility] [id number] [address] [place] [phone] Nov, [facility] [address] [facility] [id number] [address] [place] [phone] Nov, Attention deficit hyperactiv ity disorder F90.9 ; Intermittent explosive disorder F63.81 and Bipolar disorder F31.9 [facility] [address] [facility] [id number] [address] [place] [phone] Oct, [facility] [address] [facility] [id number] [address] [place] [phone] Oct, [facility] [address] [facility] [id number] [address] [place] [phone] Sep, [facility] [address] [facility] [id number] [address] [place] [phone] Aug, [facility] [address] [facility] [id number] [address] [place] [phone] Jul, [facility] [address] [facility] [id number] [address] [place] [phone] Jul, [facility] [address] [facility] [id number] [address] [place] [phone] Jul, Anxiety, generalized 300.02 ; Bipolar disorder, unspecified 296.80 ; 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.00 ; 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 and Impulse control disorder, unspecified 312.30 [facility] [address] [id number] [address] [place] [phone] Jul, [facility] [address] [facility] [id number] [address] [place] [phone] Jun, [facility] [address] [facility] [id number] [address] [place] [phone] May, [facility] [address] [id number] [address] [place] [phone] Apr, [facility] [address] [id number] [address] [place] [phone] Apr, Bipolar disorder, unspecifie d 296.80 ; Generalized anxiety disorder 300.02 and 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.00 [facility] [address] [facility] [id number] [address] [place] [phone] Apr, [facility] [address] [id number] [address] [place] [phone] March, [facility] [address] [id number] [address] [place] [phone] March, [facility] [address] [facility] [id number] [address] [place] [phone] March, [facility] [address] [facility] [id number] [address] [place] [phone] March, [facility] [address] [id number] [address] [place] [phone] Feb, [facility] [address] [id number] [address] [place] [phone] Feb, [facility] [address] [facility] [id number] [address] [place] [phone] Jan, [facility] [address] [facility] [id number] [address] [place] [id number] Jan, [facility] [address] [id number] [address] [place] [address], [place] [address] Jan, [facility] [address] [id number] [address] [place] [address], [place] [address] Jan, [facility] [address] [id number] [address] [place] [address], [place] [address] Jan, [facility] [address] [id number] [address] [place] [address], [place] [address] Dec, [facility] [address] [id number] [address] [place] [address], [place] [address] Dec, [facility] [address] [id number] [address] [place] [address], [place] [address] Nov, [facility] [address] [id number] [address] [place] [address], [place] [address] Nov, [facility] [address] [id number] [address] [place] [address], [place] [address] Nov, [facility] [address] [id number] [address] [place] [address], [place] [address] Oct, [facility] [address] [id number] [address] [place] [address], [place] [address] Oct, [facility] [address] [id number] [address] [place] [address], [place] [address] Oct, [facility] [address] [id number] [address] [place] [address], [place] [address] Oct, [facility] [address] [address] [id number] [address] [place] [address], [place] [address] Oct, [facility] [address] [id number] [address] [place] [address], [place] [address] Oct, [facility] [address] [id number] [address] [place] [address], [place] [address] Sep, [facility] [address] [id number] [address] [place] [address], [place] [address] Sep, [facility] [address] [id number] [address] [place] [address], [place] [address] Sep, [facility] [address] [id number] [address] [place] [address], [place] [address] Aug, [facility] [address] [id number] [address] [place] [address], [place] [address] Aug, [facility] [address] [id number] [address] [place] [address], [place] [address] Jul, [facility] [address] [id number] [address] [place] [address], [place] [address] Jul, [facility] [address] [id number] [address] [place] [address], [place] [address] Jun, [facility] [address] [id number] [address] [place] [address], [place] [address] Jun, [facility] [address] [id number] [address] [place] [address], [place] [address] Jun, [facility] [address] [id number] [address] [place] [address], [place] [address] Jun, [facility] [address] [id number] [address] [place] [address], [place] [address] May, [facility] [address] [id number] [address] [place] [address], [place] [address] May, [facility] [address] [id number] [address] [place] [address], [place] [address] May, [facility] [address] [id number] [address] [place] [address], [place] [address] Apr, [facility] [address] [id number] [address] [place] [address], [place] [address] Apr, [facility] [address] [id number] [address] [place] [address], [place] [address] Apr, [facility] [address] [id number] [address] [place] [address], [place] [address] Apr, [facility] [address] [id number] [address] [place] [address], [place] [address] March, [facility] [address] [id number] [address] [place] [address], [place] [address] March, [facility] [address] [id number] [address] [place] [address], [place] [address] March, [facility] [address] [id number] [address] [place] [address], [place] [address] March, [facility] [address] [id number] [address] [place] [address], [place] [address] Feb, [facility] [address] [id number] [address] [place] [address], [place] [address] Feb, [facility] [address] [id number] [address] [place] [address], [place] [address] Jan, [facility] [address] [id number] [address] [place] [address], [place] [address] Jan, [facility] [address] [id number] [address] [place] [address], [place] [address] Jan, [facility] [address] [id number] [address] [place] [address], [place] [address] Jan, [facility] [address] [id number] [address] [place] [address], [place] [address] Jan, [facility] [address] [id number] [address] [place] [address], [place] [address] Jan, [facility] [address] [id number] [address] [place] [address], [place] [address] Jan, [facility] [address] [id number] [address] [place] [address], [place] [address] Jan, [facility] [address] [id number] [address] [place] [address], [place] [address] Dec, [facility] [address] [id number] [address] [place] [address], [place] [address] Dec, [facility] [address] [id number] [address] [place] [address], [place] [address] Dec, [facility] [address] [id number] [address] [place] [address], [place] [address] Dec, [facility] [address] [id number] [address] [place] [address], [place] [address] Nov, [facility] [address] [id number] [address] [place] [address], [place] [address] Nov, [facility] [address] [id number] [address] [place] [address], [place] [address] Oct, [facility] [address] [id number] [address] [place] [address], [place] [address] Oct, [facility] [address] [id number] [address] [place] [address], [place] [address] Oct, [facility] [address] [id number] [address] [place] [address], [place] [address] Oct, [facility] [address] [id number] [address] [place] [address], [place] [address] Sep, [facility] [address] [id number] [address] [place] [address], [place] [address] Sep, [facility] [address] [id number] [address] [place] [address], [place] [address] Sep, [facility] [address] [id number] [address] [place] [address], [place] [address] Sep, [facility] [address] [id number] [address] [place] [address], [place] [address] Aug, [facility] [address] [id number] [address] [place] [address], [place] [address] Aug, [facility] [address] [id number] [address] [place] [address], [place] [address] Aug, [facility] [address] [id number] [address] [place] [address], [place] [address] Jul, [facility] [address] [id number] [address] [place] [address], [place] [address] Jul, [facility] [address] [id number] [address] [place] [address], [place] [address] Jun, [facility] [address] [id number] [address] [place] [address], [place] [address] Jun, [facility] [address] [id number] [address] [place] [address], [place] [address] May, [facility] [address] [id number] [address] [place] [address], [place] [address] May, [facility] [address] [id number] [address] [place] [address], [place] [address] Apr, [facility] [address] [id number] [address] [place] [address], [place] [address] March, [facility] [address] [id number] [address] [place] [address], [place] [address] March, [facility] [address] [id number] [address] [place] [address], [place] [address] Feb, [facility] [address] [id number] [address] [place] [address], [place] [address] Jan, [facility] [address] [id number] [address] [place] [address], [place] [address] Jan, [facility] [address] [id number] [address] [place] [address], [place] [address] Dec, [facility] [address] [id number] [address] [place] [address], [place] [address] Dec, [facility] [address] [id number] [address] [place] [address], [place] [address] Nov, [facility] [address] [id number] [address] [place] [address], [place] [address] Nov, [facility] [address] [id number] [address] [place] [address], [place] [address] Nov, [facility] [address] [id number] [address] [place] [address], [place] [address] Nov, [facility] [address] [id number] [address] [place] [address], [place] [address] Nov, [facility] [address] [id number] [address] [place] [address], [place] [address] Oct, [facility] [address] [id number] [address] [place] [address], [place] [address] Oct, [facility] [address] [id number] [address] [place] [address], [place] [address] Oct, [facility] [address] [id number] [address] [place] [address], [place] [address] Oct, [facility] [address] [id number] [address] [place] [address], [place] [address] Oct, [facility] [address] [id number] [address] [place] [address], [place] [address] Oct, [facility] [address] [id number] [address] [place] [address], [place] [address] 05 Oct, 2012 [facility] [address] [id number] [address] [place] [address], [place] [address] Oct, [facility] [address] [id number] [address] [place] [address], [place] [address] Sep, [facility] [address] [id number] [address] [place] [address], [place] [address] Sep, [facility] [address] [id number] [address] [place] [address], [place] [address] Sep, [facility] [address] [id number] [address] [place] [address], [place] [address] Aug, [facility] [address] [id number] [address] [place] [address], [place] [address] 17 Aug, 2012 [facility] [address] [id number] [address] [place] [address], [place] [address] Aug, [facility] [address] [id number] [address] [place] [address], [place] [address] Aug, [facility] [address] [id number] [address] [place] [address], [place] [address] Aug, [facility] [address] [id number] [address] [place] [address], [place] [address] Jul, [facility] [address] [id number] [address] [place] [address], [place] [address] Jul, [facility] [address] [id number] [address] [place] [address], [place] [address] Jun, [facility] [address] [id number] [address] [place] [address], [place] [address] May, [facility] [address] [id number] [address] [place] [address], [place] [address] May, [facility] [address] [id number] [address] [place] [address], [place] [address] Apr, [facility] [address] [id number] [address] [place] [address], [place] [address] March, [facility] [address] [id number] [address] [place] [address], [place] [address] March, [facility] [address] [id number] [address] [place] [address], [place] [address] March, [facility] [address] [id number] [address] [place] [address], [place] [address] March, [facility] [address] [id number] [address] [place] [address], [place] [address] Feb, [facility] [address] [id number] [address] [place] [address] Feb, [facility] [address] [id number] [address] [place] [address] Jan, [facility] [address] [id number] [address] [place] [address] Dec, [facility] [address] [id number] [address] [place] [address] Dec, [facility] [address] [id number] [address] [place] [address] Dec, [facility] [address] [id number] [address] [place] [address] Nov, [facility] [address] [id number] [address] [place] [address] Nov, [facility] [address] [id number] [address] [place] [address] Nov, [facility] [address] [id number] [address] [place] [address] Oct, [facility] [address] [id number] [address] [place] [address] Sep, [facility] [address] [id number] [address] [place] [address] Aug, [facility] [address] [id number] [address] [place] [address] Aug, [facility] [address] [id number] [address] [place] [address] May, [facility] [address] [id number] [address] [place] [address] Sep, [facility] [address] [id number] [address] [place] [address] Sep, IMMUNIZATIONS No Known Immunizations SOCIAL HISTORY [...]
--- OUTSIDE RECORDS SUMMARY | 2020-03-18 15:23 | XMS REPORT ---
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 Active 72136039 Problem Attention-deficit hyperactiv ity disorder, predominantly inattentive type F90.0 Active 76970288 Problem Intermittent explosive disorder F63.81 Active 19295251 Problem Bipolar disorder, currently in remission, most recent episode unspecified F31.70 Active [id number] ALLERGIES No Information ENCOUNTERS Encounter Location Date Diagnosis [place] [address] [address] Oct, [address] [address] Sep, Intermittent explosive disorder F63.81 ; Bipolar disorder, currently in remission, most recent episode unspecified F31.70 ; Attention-deficit hyperactivity disorder, predominantly inattentive type F90.0 ; Moderate intellectual disability F71 ; Encounter to establish care Z76.89 and Abrasion, left lower leg, sequela S80.812S [place] [address] [address] 15 Sep, [address] [address] Sep, Annual physical exam Z00.00 ; Abrasion o f left lower leg, initial encounter S80.812A ; Cellulitis of left lower leg L03.116 ; Attention deficit hyperactivity disorder F90.9 ; Intermittent explosive disorder F63.81 and Intellectual disability F79 [place] [address] [address] Jul, Bipolar disorder F31.9 [place] [address] [address] Jul, Acute gastroenteritis K52.9 ; Intellectu al disability F79 and Bipolar disorder F31.9 [place] [address] [address] Jun, [place] [address] [address] Jun, Bipolar disorder F31.9 [place] [address] [address] May, Bipolar disorder F31.9 ; Intellectual di sability F79 and Attention- deficit hyperactivity disorder, predominantly inattentive type F90.0 [place] [address] [address] May, [place] [address] [address] May, Bipolar disorder F31.9 [place] [address] [address] May, Bipolar disorder F31.9 ; Attention-defic it hyperactivity disorder, predominantly inattentive type F90.0 and Moderate intellectual disability F71 [place] [address] [address] Apr, Bipolar disorder F31.9 [place] [address] [address] Apr, Bipolar disorder F31.9 and High risk med ication use Z79.899 [place] [address] [address] March, Bipolar disorder F31.9 and High risk med ication use Z79.899 [place] [address] [address] March, Bipolar disorder F31.9 [facility] [id number] [place] [address] March, Caries K02.9 [place] [address] [address] March, Bipolar disorder F31.9 [facility] [address] [address] March, Bipolar disorder F31.9 [facility] [address] [address] Feb, Bipolar disorder F31.9 [facility] [address] [address] Feb, Bipolar disorder F31.9 ; Attention-defic it hyperactivity disorder, predominantly inattentive type F90.0 and Moderate intellectual disability 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 [facility] [address] [address] Jan, Bipolar disorder F31.9 [facility] [address] [address] Jan, Bipolar disorder F31.9 [facility] [address] [address] Jan, Dental examination Z01.20 ; 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 status requiring routine preventive dental care K08.9 and Caries K02.9 [place] [address] [address] Jan, [facility] [address] [address] Jan, Bipolar disorder F31.9 ; Moderate intell ectual disability F71 and Attention-deficit hyperactivity disorder, predominantly inattentive type F90.0 [place] [address] [address] Dec, Bipolar disorder, currently in remission , most recent episode unspecified F31.70 [place] [address] [address] Dec, Bipolar disorder, currently in remission , most recent episode unspecified F31.70 [facility] [address] [address] Dec, Bipolar disorder, currently in remission , most recent episode unspecified F31.70 [facility] [address] [place] [id number] [place] [address] Dec, [facility] [address] [address] Dec, Bipolar disorder, currently in remission , most recent episode unspecified F31.70 [facility] [address] [address] Nov, Bipolar disorder, currently in remission , most recent episode unspecified F31.70 [facility] [address] [address] Nov, [place] [address] [address] Nov, [facility] [address] [address] Nov, Bipolar disorder, currently in remission , most recent episode unspecified F31.70 [facility] [address] [place] [id number] [place] [address] Nov, Bipolar disorder, currently in remission , most recent episode unspecified F31.70 [place] [address] [address] Oct, High risk medication use Z79.899 ; Bipol ar disorder F31.9 ; Moderate intellectual disability F71 and Attention-deficit hyperactivity disorder, predominantly inattentive type F90.0 [facility] [address] [place] [id number] [place] [address] Oct, [facility] [address] [address] Sep, Bipolar disorder, currently in remission , most recent episode unspecified F31.70 [facility] [address] [id number] [place] [id number] Sep, 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 status requiring routine preventive dental care K08.9 and Arrested dental caries K02.3 [facility] [address] [place] [id number] [place] [address] Sep, Bipolar disorder, currently in remission , most recent episode unspecified F31.70 ; Moderate intellectual disability F71 and Attention-deficit hyperactivity disorder, predominantly inattentive type F90.0 [facility] [address] [address] Sep, Bipolar disorder, currently in remission , most recent episode unspecified F31.70 [facility] [address] [address] Aug, Bipolar disorder, currently in remission , most recent episode unspecified F31.70 [facility] [address] [address] Jul, Bipolar disorder, currently in remission , most recent episode unspecified F31.70 [facility] [address] [address] Jul, Bipolar disorder, currently in remission , most recent episode unspecified F31.70 [facility] [address] [address] Jun, [facility] [address] [address] Jun, Bipolar disorder, currently in remission , most recent episode unspecified F31.70 [facility] [address] [place] [id number] [place] [id number] Jun, Dental examination Z01.20 and Dental car ies K02.9 [facility] [address] [place] [id number] [place] [address] May, Bipolar disorder, currently in remission , most recent episode unspecified F31.70 [facility] [address] [address] May, Bipolar disorder, currently in remission , most recent episode unspecified F31.70 [facility] [address] [address] May, Bipolar disorder, currently in remission , most recent episode unspecified F31.70 ; Moderate intellectual disability F71 and Attention-deficit hyperactivity disorder, predominantly inattentive type F90.0 [facility] [address] [address] Apr, Bipolar disorder, unspecified F31.9 [facility] [address] [address] Apr, [facility] [address] [address] Apr, [facility] [address] [address] Apr, [facility] [address] [address] March, [facility] [address] [address] March, Bipolar disorder, currently in remission , most recent episode unspecified F31.70 ; Moderate intellectual disability F71 and Attention-deficit hyperactivity disorder, predominantly inattentive type F90.0 [facility] [address] [address] Feb, [facility] [address] [id number] Feb, Dental examination Z01.20 [facility] [address] [address] Jan, [facility] [address] [address] Jan, [facility] [address] [address] Dec, [facility] [address] [address] Nov, [facility] [address] [id number] Nov, Encounter for dental exam and cleaning w /o abnormal findings Z01.20 [facility] [address] [id number] Nov, Dental examination Z01.20 [facility] [address] [place] [address] Oct, [facility] [address] [address] Oct, Bipolar disorder, currently in remission , most recent episode unspecified F31.70 ; Moderate intellectual disability F71 and Attention-deficit hyperactivity disorder, predominantly inattentive type F90.0 [facility] [address] [address] Sep, [facility] [address] [address] Sep, [facility] [address] [address] Aug, [facility] [address] [address] Aug, Attention-deficit hyperactivity disorder , predominantly inattentive type F90.0 ; Moderate intellectual disability F71 and Bipolar disorder F31.9 [facility] [address] [place] [id number] [place] [id number] Jul, Dental examination Z01.20 and Dental car ies K02.9 [facility] [address] [address] Jul, [facility] [address] [address] Jun, Bipolar disorder F31.9 ; Attention-defic it hyperactivity disorder, predominantly inattentive type F90.0 and Moderate intellectual disability F71 [facility] [address] [address] Jun, [facility] [address] [address] May, [facility] [address] [address] Apr, [facility] [address] [address] March, Intermittent explosive disorder F63.81 ; Attention deficit hyperactivity disorder F90.9 and Bipolar disorder F31.9 [facility] [address] [address] Feb, [facility] [address] [address] Jan, [facility] [address] [address] Dec, Encounter for immunization Z23 [facility] [address] [address] Dec, Intermittent explosive disorder F63.81 ; Attention deficit hyperactivity disorder F90.9 and Bipolar disorder, currently in remission, most recent episode unspecified F31.70 [facility] [address] [address] Nov, [facility] [address] [address] Oct, [facility] [address] [address] Oct, [facility] [address] [place] [id number] [place] [id number] Oct, Dental examination Z01.20 [facility] [address] [address] Sep, [facility] [address] [address] Sep, [facility] [address] [address] Sep, Intermittent explosive disorder F63.81 ; Bipolar disorder F31.9 and Attention deficit hyperactivity disorder F90.9 [facility] [address] [address] Aug, [facility] [address] [address] Aug, [facility] [address] [address] Aug, [facility] [address] [id number] [place] [address] 14 Aug, 2016 Attention deficit hyperactivity disorder F90.9 [facility] [address] [place] [id number] [place] [address] 16 Jul, 2016 [facility] [address] [id number] [place] [address] Jun, [facility] [address] [place] [id number] [place] [address] May, [facility] [address] [id number] [place] [address] Apr, [facility] [address] [place] [id number] [place] [address] Apr, Bipolar disorder F31.9 ; Attention defic it hyperactivity disorder F90.9 and Intermittent explosive disorder F63.81 [facility] [address] [place] [id number] [place] [address] March, [facility] [address] [place] [address] [id number] [place] [address] Feb, [facility] [address] [place] [id number] [place] [address] Feb, [facility] [address] [place] [address] [id number] [place] [address] Jan, [facility] [address] [place] [address] [id number] [place] [address] Jan, [facility] [address] [place] [id number] [place] [address] Dec, [facility] [address] [id number] [place] [address] Nov, [facility] [address] [place] [id number] [place] [address] Nov, [facility] [address] [id number] [place] [address] Nov, Attention deficit hyperactivity disorder F90.9 ; Intermittent explosive disorder F63.81 and Bipolar disorder F31.9 [facility] [address] [address] Oct, [facility] [address] [address] Oct, [facility] [address] [address] Sep, [facility] [address] [address] Aug, [facility] [address] [address] Jul, [facility] [address] [address] Jul, [facility] [address] [address] Jul, Anxiety, generalized 300.02 ; Bipolar di sorder, unspecified 296.80 ; 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.00 ; 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 and Impulse control disorder, unspecified 312.30 [facility] [address] [address] Jul, [facility] [address] [address] Jun, [facility] [address] [address] May, [facility] [address] [address] Apr, [facility] [address] [address] Apr, Bipolar disorder, unspecified 296.80 ; G eneralized anxiety disorder 300.02 and 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.00 [facility] [address] [address] Apr, [facility] [address] [address] March, [facility] [address] [id number] [place] [address] March, [facility] [address] [id number] [place] [address] March, [facility] [address] [id number] [place] [address] March, [facility] [address] [id number] [place] [address] Feb, [facility] [address] [id number] [place] [address] Feb, [facility] [address] [id number] [place] [address] Jan, [facility] [address] [id number] [place] [address] Jan, [facility] [address] [id number] [place] [address] Jan, [facility] [address] [id number] [place] [address] Jan, [facility] [address] [id number] [place] [address] Jan, [facility] [address] [id number] [place] [address] Dec, [facility] [address] [id number] [place] [address] Dec, [facility] [address] [id number] [place] [address] Nov, [facility] [address] [id number] [place] [address] Nov, [facility] [address] [id number] [place] [address] Nov, [facility] [address] [id number] [place] [address] Oct, [facility] [address] [id number] [place] [address] Oct, [facility] [address] [facility] [id number] [place] [address] Oct, [facility] [address] [id number] [place] [address] Oct, [facility] [address] [id number] [place] [address] Oct, [facility] [address] [id number] [place] [address] Oct, [facility] [address] [id number] [place] [address] Sep, [facility] [address] [id number] [place] [address] Sep, [facility] [address] [id number] [place] [address] Sep, [facility] [address] [id number] [place] [address] Aug, [facility] [address] [id number] [place] [address] Aug, [facility] [address] [id number] [place] [address] Jul, [facility] [address] [id number] [place] [address] Jul, [facility] [address] [id number] [place] [address] Jun, [facility] [address] [id number] [place] [address] Jun, [facility] [address] [id number] [place] [address] Jun, [facility] [address] [id number] [place] [address] Jun, [facility] [address] [id number] [place] [address] May, [facility] [address] [facility] [id number] [facility] [place] [address] May, [facility] [address] [facility] [id number] [place] [address] May, [facility] [address] [facility] [id number] [place] [address] Apr, [facility] [address] [id number] [place] [address] Apr, [facility] [address] [facility] [id number] [place] [address] Apr, [facility] [address] [facility] [id number] [place] [address] Apr, [facility] [address] [id number] [place] [address] March, [facility] [address] [id number] [place] [address] March, [facility] [address] [id number] [place] [address] March, [facility] [address] [id number] [place] [address] March, [facility] [address] [id number] [place] [address] Feb, [facility] [address] [id number] [place] [address] Feb, [facility] [address] [id number] [place] [address] Jan, [facility] [address] [facility] [id number] [place] [address] Jan, [facility] [address] [id number] [place] [address] Jan, [facility] [address] [id number] [place] [address] Jan, [facility] [address] [id number] [place] [address] Jan, [facility] [address] [facility] [id number] [place] [address] Jan, [facility] [address] [id number] [place] [address] Jan, [facility] [address] [id number] [place] [address] Jan, [facility] [address] [id number] [place] [address] Dec, [facility] [address] [facility] [id number] [place] [address] Dec, [facility] [address] [id number] [place] [address] Dec, [facility] [address] [id number] [place] [address] Dec, [facility] [address] [id number] [place] [address] Nov, [facility] [address] [id number] [place] [address] Nov, [facility] [address] [id number] [place] [address] Oct, [facility] [address] [id number] [place] [address] Oct, [facility] [address] [id number] [place] [address] Oct, [facility] [address] [id number] [place] [address] Oct, [facility] [address] [id number] [place] [address] Sep, [facility] [address] [id number] [place] [address] Sep, [facility] [address] [id number] [place] [address] Sep, [facility] [address] [id number] [place] [address] 07 Sep, 2013 [facility] [address] [id number] [place] [address] Aug, [facility] [address] [id number] [place] [address] Aug, [facility] [address] [id number] [place] [address] Aug, [facility] [address] [id number] [place] [address] Jul, [facility] [address] [id number] [place] [address] Jul, [facility] [address] [id number] [place] [address] Jun, [facility] [address] [id number] [place] [address] Jun, [facility] [address] [id number] [place] [address] May, [facility] [address] [id number] [place] [address] May, [facility] [address] [id number] [place] [address] Apr, [facility] [address] [id number] [place] [address] March, [facility] [address] [id number] [place] [address] March, [facility] [address] [id number] [place] [address] Feb, [facility] [id number] [place] [address] Jan, [facility] [address] [id number] [place] [address] Jan, [facility] [address] [id number] [place] [address] Dec, [facility] [address] [id number] [place] [address] Dec, [facility] [address] [id number] [place] [address] Nov, [facility] [address] [id number] [place] [address] Nov, [facility] [address] [id number] [place] [address] Nov, [facility] [address] [id number] [place] [address] Nov, [facility] [address] [id number] [place] [address] Nov, [facility] [address] [id number] [place] [address] Oct, [facility] [address] [id number] [place] [address] Oct, [facility] [address] [id number] [place] [address] Oct, [facility] [address] [id number] [place] [address] Oct, [facility] [address] [id number] [place] [address] Oct, [facility] [address] [id number] [place] [address] Oct, [facility] [address] [id number] [place] [address] 05 Oct, 2012 [facility] [address] [id number] [place] [address] Oct, [facility] [address] [id number] [place] [address] Sep, [facility] [address] [id number] [place] [address] Sep, [facility] [address] [id number] [place] [address] Sep, [facility] [address] [id number] [place] [address] Aug, [facility] [address] [id number] [place] [address] Aug, [facility] [address] [id number] [place] [address] Aug, [facility] [address] [id number] [place] [address] Aug, [facility] [address] [id number] [place] [address] Aug, [facility] [address] [id number] [place] [address] Jul, [facility] [address] [id number] [place] [address] Jul, [facility] [address] [id number] [place] [address] Jun, [facility] [address] [id number] [place] [address] May, [facility] [address] [id number] [place] [address] May, [facility] [address] [id number] [place] [address] Apr, [facility] [address] [id number] [place] [address] March, [facility] [address] [id number] [place] [address] March, [facility] [address] [id number] [place] [address] March, [facility] [address] [id number] [place] [address] March, [facility] [address] [id number] [place] [address] Feb, [facility] [id number] [place] [address] Feb, [facility] [id number] [place] [address] Jan, [facility] [id number] [place] [address] Dec, [facility] [id number] [place] [address] Dec, [facility] [id number] [place] [address] Dec, [facility] [id number] [place] [address] Nov, [facility] [id number] [place] [address] Nov, [facility] [id number] [place] [address] Nov, [facility] [id number] [place] [address] Oct, [facility] [id number] [place] [address] Sep, [facility] [id number] [place] [address] Aug, [facility] [id number] [place] [address] Aug, [facility] [id number] [place] [address] May, [facility] [id number] [place] [address] Sep, [facility] [id number] [place] [address] Sep, IMMUNIZATIONS No Known Immunizations SOCIAL HISTORY Never Assessed REASON FOR VISIT PLAN OF CARE VITAL SIGNS MEDICATIONS Unknown Medications RESULTS No Results PROCEDURES Procedure Date Ordered Result Body Site COMPLETE CBC W/AUTO DIFF WBC January 31, 2014 ASSAY THYROID STIM HORMONE January 31, 2014 LIPID PANEL January 31, 2014 COMPREHEN METABOLIC PANEL January 31, 2014 INSTRUCTIONS MEDICATIONS ADMINISTERED No Known Medications MEDICAL (GENERAL) HISTORY Type Description Date Medical History bipolar Medical History adhd Medical History anxiety Medical History Intermittent explosive disorder Medical History Bipolar disorder Medical History Intellectual disability Surgical History No Surgical history information
--- OUTSIDE RECORDS SUMMARY | 2020-03-18 15:23 | XMS REPORT ---
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 Active 54966064 Problem Attention-deficit hyperactiv ity disorder, predominantly inattentive type F90.0 Active 44232620 Problem Intermittent explosive disorder F63.81 Active 26856989 Problem Bipolar disorder, currently in remission, most recent episode unspecified F31.70 Active [id number] ALLERGIES No Information ENCOUNTERS Encounter Location Date Diagnosis [place] [address] [place] [id number] [address] [place] [address] Oct, [place] [address] [place] [id number] [address] [place] [address] Sep, Intermittent explosive disor jocelyn F63.81 ; Bipolar disorder, currently in remission, most recent episode unspecified F31.70 ; Attention- deficit hyperactivity disorder, predominantly inattentive type F90.0 ; Moderate intellectual disability F71 ; Encounter to establish care Z76.89 and Abrasion, left lower leg, sequela S80.812S [place] [address] [place] [id number] [address] [place] [id number] 15 Sep, 2019 [place] [address] [place] [id number] [address] [place] [phone] 06 Sep, 2019 Annual physical exam Z00.00 ; Abrasion of left lower leg, initial encounter S80.812A ; Cellulitis of left lower leg L03.116 ; Attention deficit hyperactivity disorder F90.9 ; Intermittent explosive disorder F63.81 and Intellectual disability F79 [place] [address] [place] [id number] [address] [place] [address] Jul, Bipolar disorder F31.9 [facility] [address] [id number] [address] [place] [address] Jul, Acute gastroenteritis K52.9 ; Intellectual disability F79 and Bipolar disorder F31.9 [facility] [address] [id number] [address] [place] [phone] Jun, [facility] [address] [id number] [address] [place] [address] Jun, Bipolar disorder F31.9 [facility] [address] [id number] [address] [place] [address] May, Bipolar disorder F31.9 ; Int ellectual disability F79 and Attention- deficit hyperactivity disorder, predominantly inattentive type F90.0 [facility] [address] [id number] [address] [place] [address] May, [facility] [address] [id number] [address] [place] [address] May, Bipolar disorder F31.9 [facility] [address] [id number] [address] [place] [address] May, Bipolar disorder F31.9 ; Att ention-deficit hyperactivity disorder, predominantly inattentive type F90.0 and Moderate intellectual disability F71 [facility] [address] [id number] [address] [place] [phone] Apr, Bipolar disorder F31.9 [facility] [address] [id number] [address] [place] [address] Apr, Bipolar disorder F31.9 and H igh risk medication use Z79.899 [facility] [address] [id number] [address] [place] [address] March, Bipolar disorder F31.9 and H igh risk medication use Z79.899 [facility] [address] [id number] [address] [place] [address] March, Bipolar disorder F31.9 [facility] [place] [address] [id number] [place] [address] March, Caries K02.9 [facility] [address] [id number] [address] [place] [address] March, Bipolar disorder F31.9 [facility] [address] [id number] [address] [place] [address] March, Bipolar disorder F31.9 [facility] [address] [id number] [address] [place] [phone] Feb, Bipolar disorder F31.9 [facility] [address] [id number] [address] [place] [phone] Feb, Bipolar disorder F31.9 ; Att ention-deficit hyperactivity disorder, predominantly inattentive type F90.0 and Moderate intellectual disability F71 [facility] [address] [id number] [address] [place] [address] Jan, Bipolar disorder F31.9 [facility] [address] [id number] [address] [place] [address] Jan, Bipolar disorder F31.9 [facility] [address] [id number] [address] [place] [address] Jan, Dental examination Z01.20 ; 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 status requiring routine preventive dental care K08.9 and Caries K02.9 [facility] [address] [id number] [address] [place] [address] Jan, [facility] [address] [id number] [address] [place] [address] Jan, Bipolar disorder F31.9 ; Mod erate intellectual disability F71 and Attention-deficit hyperactivity disorder, predominantly inattentive type F90.0 [facility] [address] [id number] [address] [place] [address] Dec, Bipolar disorder, currently in remission, most recent episode unspecified F31.70 [facility] [address] [id number] [address] [place] [address] Dec, Bipolar disorder, currently in remission, most recent episode unspecified F31.70 [facility] [address] [id number] [address] [place] [address] Dec, Bipolar disorder, currently in remission, most recent episode unspecified F31.70 [facility] [address] [id number] [address] [place] [address] Dec, [facility] [address] [id number] [address] [place] [address] Dec, Bipolar disorder, currently in remission, most recent episode unspecified F31.70 [facility] [address] [id number] [address] [place] [address] Nov, Bipolar disorder, currently in remission, most recent episode unspecified F31.70 [facility] [address] [id number] [address] [place] [address] Nov, [facility] [address] [id number] [address] [place] [address] Nov, [facility] [address] [facility] [id number] [address] [place] [address] Nov, Bipolar disorder, currently in remission, most recent episode unspecified F31.70 [facility] [address] [id number] [address] [place] [address] Nov, Bipolar disorder, currently in remission, most recent episode unspecified F31.70 [facility] [address] [id number] [address] [place] [address] Oct, High risk medication use Z79 .899 ; Bipolar disorder F31.9 ; Moderate intellectual disability F71 and Attention-deficit hyperactivity disorder, predominantly inattentive type F90.0 [facility] [address] [id number] [address] [place] [address] Oct, [facility] [address] [facility] [id number] [address] [place] [address] Sep, Bipolar disorder, currently in remission, most recent episode unspecified F31.70 [facility] [address] [id number] [address] [place] [id number] Sep, 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 stat requiring routine preventive dental care K08.9 and Arrested dental caries K02.3 [facility] [address] [id number] [address] [place] [address] Sep, Bipolar disorder, currently in remission, most recent episode unspecified F31.70 ; Moderate intellectual disability F71 and Attention-deficit hyperactivity disorder, predominantly inattentive type F90.0 [facility] [address] [id number] [address] [place] [address] Sep, Bipolar disorder, currently in remission, most recent episode unspecified F31.70 [facility] [address] [id number] [address] [place] [address] Aug, Bipolar disorder, currently in remission, most recent episode unspecified F31.70 [facility] [address] [id number] [address] [place] [address] 13 Jul, 2018 Bipolar disorder, currently in remission, most recent episode unspecified F31.70 [facility] [address] [id number] [address] [place] [address] Jul, Bipolar disorder, currently in remission, most recent episode unspecified F31.70 [facility] [address] [id number] [address] [place] [address] Jun, [facility] [address] [id number] [address] [place] [address] Jun, Bipolar disorder, currently in remission, most recent episode unspecified F31.70 [facility] [address] [id number] [address] [place] [id number] Jun, Dental examination Z01.20 an d Dental caries K02.9 [facility] [address] [id number] [address] [place] [id number] May, Bipolar disorder, currently in remission, most recent episode unspecified F31.70 [facility] [address] [id number] [address] [place] [address] May, Bipolar disorder, currently in remission, most recent episode unspecified F31.70 [facility] [address] [id number] [address] [place] [address] May, Bipolar disorder, currently in remission, most recent episode unspecified F31.70 ; Moderate intellectual disability F71 and Attention-deficit hyperactivity disorder, predominantly inattentive type F90.0 [facility] [address] [id number] [address] [place] [address] Apr, Bipolar disorder, unspecifie d F31.9 [facility] [address] [id number] [address] [place] [address] Apr, [facility] [address] [id number] [address] [place] [address] Apr, [facility] [address] [id number] [address] [place] [address] Apr, [facility] [address] [id number] [address] [place] [address] March, [facility] [address] [id number] [address] [place] [address] March, Bipolar disorder, currently in remission, most recent episode unspecified F31.70 ; Moderate intellectual disability F71 and Attention-deficit hyperactivity disorder, predominantly inattentive type F90.0 [facility] [address] [id number] [address] [place] [address] Feb, [facility] [address] [id number] [address] [place] [id number] Feb, Dental examination Z01.20 [facility] [address] [id number] [address] [place] [address] Jan, [facility] [address] [id number] [address] [place] [address] Jan, [facility] [address] [id number] [address] [place] [address] Dec, [facility] [address] [id number] [address] [place] [address] Nov, [facility] [address] [id number] [address] [place] [id number] Nov, Encounter for dental exam an d cleaning w/o abnormal findings Z01.20 [facility] [address] [id number] [address] [place] [id number] Nov, Dental examination Z01.20 [facility] [address] [id number] [address] [place] [address] Oct, [facility] [address] [id number] [address] [place] [address] Oct, Bipolar disorder, currently in remission, most recent episode unspecified F31.70 ; Moderate intellectual disability F71 and Attention-deficit hyperactivity disorder, predominantly inattentive type F90.0 [facility] [address] [id number] [address] [place] [address] Sep, [facility] [address] [id number] [address] [place] [address] Sep, [facility] [address] [id number] [address] [place] [address] Aug, [facility] [address] [id number] [address] [place] [address] Aug, Attention-deficit hyperactiv ity disorder, predominantly inattentive type F90.0 ; Moderate intellectual disability F71 and Bipolar disorder F31.9 [facility] [address] [id number] [address] [place] [id number] Jul, Dental examination Z01.20 an d Dental caries K02.9 [facility] [address] [id number] [address] [place] [address] 05 Jul, 2017 [facility] [address] [id number] [address] [place] [address] Jun, Bipolar disorder F31.9 ; Att ention-deficit hyperactivity disorder, predominantly inattentive type F90.0 and Moderate intellectual disability F71 [facility] [address] [facility] [id number] [address] [place] [address] Jun, [facility] [address] [facility] [id number] [address] [place] [address] May, [facility] [address] [facility] [id number] [address] [place] [address] Apr, [facility] [address] [facility] [id number] [address] [place] [address] March, Intermittent explosive disor jocelyn F63.81 ; Attention deficit hyperactivity disorder F90.9 and Bipolar disorder F31.9 [facility] [address] [facility] [id number] [address] [place] [address] Feb, [facility] [address] [facility] [id number] [address] [place] [address] Jan, [facility] [address] [facility] [id number] [address] [place] [id number] 13 Dec, 2016 Encounter for immunization Z 23 [facility] [address] [facility] [id number] [address] [place] [address] 13 Dec, 2016 Intermittent explosive disor jocelyn F63.81 ; Attention deficit hyperactivity disorder F90.9 and Bipolar disorder, currently in remission, most recent episode unspecified F31.70 [facility] [address] [facility] [id number] [address] [place] [address] Nov, [facility] [address] [facility] [id number] [address] [place] [address] Oct, [facility] [address] [facility] [id number] [address] [place] [address] Oct, [facility] [address] [id number] [address] [place] [id number] Oct, Dental examination Z01.20 [facility] [address] [id number] [address] [place] [address] Sep, [facility] [address] [id number] [address] [place] [address] Sep, [facility] [address] [id number] [address] [place] [address] Sep, Intermittent explosive disor jocelyn F63.81 ; Bipolar disorder F31.9 and Attention deficit hyperactivity disorder F90.9 [facility] [address] [id number] [address] [place] [address] Aug, [facility] [address] [id number] [address] [place] [address] Aug, [facility] [address] [id number] [address] [place] [address] Aug, [facility] [address] [id number] [address] [place] [address] Aug, Attention deficit hyperactiv ity disorder F90.9 [facility] [address] [id number] [address] [place] [address] Jul, [facility] [address] [id number] [address] [place] [address] Jun, [facility] [address] [id number] [address] [place] [address] May, [facility] [address] [id number] [address] [place] [address] Apr, [facility] [address] [id number] [address] [place] [id number] Apr, Bipolar disorder F31.9 ; Att ention deficit hyperactivity disorder F90.9 and Intermittent explosive disorder F63.81 [facility] [address] [id number] [address] [place] [address] March, [facility] [address] [id number] [address] [place] [address] Feb, [facility] [address] [id number] [address] [place] [address] Feb, [facility] [address] [facility] [id number] [address] [place] [address] Jan, [facility] [address] [facility] [id number] [address] [place] [address] Jan, [facility] [address] [id number] [address] [place] [address] Dec, [facility] [address] [facility] [id number] [address] [place] [address] Nov, [facility] [address] [facility] [id number] [address] [place] [address] Nov, [facility] [address] [facility] [id number] [address] [place] [address] Nov, Attention deficit hyperactiv ity disorder F90.9 ; Intermittent explosive disorder F63.81 and Bipolar disorder F31.9 [facility] [address] [facility] [id number] [address] [place] [address] Oct, [facility] [address] [facility] [id number] [address] [place] [address] Oct, [facility] [address] [facility] [id number] [address] [place] [address] Sep, [facility] [address] [facility] [id number] [address] [place] [id number] Aug, [facility] [address] [facility] [id number] [address] [place] [address] Jul, [facility] [address] [facility] [id number] [address] [place] [address] Jul, [facility] [address] [facility] [id number] [address] [place] [address] Jul, Anxiety, generalized 300.02 ; Bipolar disorder, unspecified 296.80 ; 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.00 ; 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 and Impulse control disorder, unspecified 312.30 [facility] [address] [id number] [address] [place] [address] Jul, [facility] [address] [id number] [address] [place] [address] Jun, [facility] [address] [id number] [address] [place] [address] May, [facility] [address] [id number] [address] [place] [address] Apr, [facility] [address] [id number] [address] [place] [address] Apr, Bipolar disorder, unspecifie d 296.80 ; Generalized anxiety disorder 300.02 and 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.00 [facility] [address] [id number] [address] [place] [address] Apr, [facility] [address] [id number] [address] [place] [address] March, [facility] [address] [id number] [address] [place] [address] March, [facility] [address] [id number] [address] [place] [address] March, [facility] [address] [id number] [address] [place] [address] March, [facility] [address] [id number] [address] [place] [phone] Feb, [facility] [address] [id number] [address] [place] [address] Feb, [facility] [address] [id number] [address] [place] [address] Jan, [facility] [address] [id number] [address] [place] [address], [place] [address] Jan, [facility] [address] [id number] [address] [place] [address], [place] [address] Jan, [facility] [address] [id number] [address] [place] [address], [place] [address] Jan, [facility] [address] [id number] [address] [place] [address], [place] [address] Jan, [facility] [address] [id number] [address] [place] [address], [place] [address] Dec, [facility] [address] [id number] [address] [place] [address], [place] [address] Dec, [facility] [address] [id number] [address] [place] [address], [place] [address] Nov, [facility] [address] [id number] [address] [place] [address], [place] [address] Nov, [facility] [address] [id number] [address] [place] [address], [place] [address] Nov, [facility] [address] [id number] [address] [place] [address], [place] [address] Oct, [facility] [address] [id number] [address] [place] [address], [place] [address] Oct, [facility] [address] [id number] [address] [place] [address], [place] [address] Oct, [facility] [address] [id number] [address] [place] [address], [place] [address] Oct, [facility] [address] [id number] [address] [place] [address], [place] [address] Oct, [facility] [address] [id number] [address] [place] [address], [place] [address] Oct, [facility] [address] [id number] [address] [place] [address], [place] [address] Sep, [facility] [address] [id number] [address] [place] [address], [place] [address] Sep, [facility] [address] [id number] [address] [place] [address], [place] [address] Sep, [facility] [address] [id number] [address] [place] [address], [place] [address] Aug, [facility] [address] [id number] [address] [place] [address], [place] [address] Aug, [facility] [address] [id number] [address] [place] [address], [place] [address] Jul, [facility] [address] [id number] [address] [place] [address], [place] [address] Jul, [facility] [address] [id number] [address] [place] [address], [place] [address] Jun, [facility] [address] [id number] [address] [place] [address], [place] [address] Jun, [facility] [address] [id number] [address] [place] [address], [place] [address] Jun, [facility] [address] [id number] [address] [place] [address], [place] [address] Jun, [facility] [address] [id number] [address] [place] [address], [place] [address] May, [facility] [address] [id number] [address] [place] [address], [place] [address] May, [facility] [address] [id number] [address] [place] [address], [place] [address] May, [facility] [address] [id number] [address] [place] [address], [place] [address] Apr, [facility] [address] [id number] [address] [place] [address], [place] [address] Apr, [facility] [address] [id number] [address] [place] [address], [place] [address] Apr, [facility] [address] [id number] [facility] [place] [address] Apr, [facility] [address] [id number] [address] [place] [address], [place] [address] March, [facility] [address] [id number] [address] [place] [address], [place] [address] March, [facility] [address] [id number] [address] [place] [address], [place] [address] March, [facility] [address] [id number] [address] [place] [address], [place] [address] March, [facility] [address] [id number] [address] [place] [address], [place] [address] Feb, [facility] [address] [id number] [address] [place] [address], [place] [address] Feb, [facility] [address] [id number] [address] [place] [address], [place] [address] Jan, [facility] [address] [id number] [address] [place] [address], [place] [address] Jan, [facility] [address] [id number] [address] [place] [address], [place] [address] Jan, [facility] [address] [id number] [address] [place] [address], [place] [address] Jan, [facility] [address] [id number] [address] [place] [address], [place] [address] Jan, [facility] [address] [id number] [address] [place] [address], [place] [address] Jan, [facility] [address] [id number] [address] [place] [address], [place] [address] Jan, [facility] [address] [id number] [address] [place] [address], [place] [address] Jan, [facility] [address] [id number] [address] [place] [address], [place] [address] Dec, [facility] [address] [id number] [address] [place] [address], [place] [address] Dec, [facility] [address] [id number] [address] [place] [address], [place] [address] Dec, [facility] [address] [id number] [address] [place] [address], [place] [address] Dec, [facility] [address] [id number] [address] [place] [address], [place] [address] Nov, [facility] [address] [id number] [address] [place] [address], [place] [address] Nov, [facility] [address] [id number] [address] [place] [address], [place] [address] Oct, [facility] [address] [id number] [address] [place] [address], [place] [address] Oct, [facility] [address] [id number] [address] [place] [address], [place] [address] Oct, [facility] [address] [id number] [address] [place] [address], [place] [address] Oct, [facility] [address] [id number] [address] [place] [address], [place] [address] Sep, [facility] [address] [id number] [address] [place] [address], [place] [address] Sep, [facility] [address] [id number] [address] [place] [address], [place] [address] Sep, [facility] [address] [id number] [address] [place] [address], [place] [address] Sep, [facility] [address] [id number] [address] [place] [address], [place] [address] 10 Aug, 2013 [facility] [address] [id number] [address] [place] [address], [place] [address] Aug, [facility] [address] [id number] [address] [place] [address], [place] [address] 07 Aug, 2013 [facility] [address] [id number] [address] [place] [address], [place] [address] Jul, [facility] [address] [id number] [address] [place] [address], [place] [address] Jul, [facility] [address] [id number] [address] [place] [address], [place] [address] Jun, [facility] [address] [id number] [address] [place] [address], [place] [address] Jun, [facility] [address] [id number] [address] [place] [address], [place] [address] May, [facility] [address] [id number] [address] [place] [address], [place] [address] May, [facility] [address] [id number] [address] [place] [address], [place] [address] Apr, [facility] [address] [id number] [address] [place] [address], [place] [address] March, [facility] [address] [id number] [address] [place] [address], [place] [address] March, [facility] [address] [id number] [address] [place] [address], [place] [address] Feb, [facility] [address] [id number] [address] [place] [address], [place] [address] Jan, [facility] [address] [id number] [address] [place] [address], [place] [address] Jan, [facility] [address] [id number] [address] [place] [address], [place] [address] Dec, [facility] [address] [id number] [address] [place] [address], [place] [address] Dec, [facility] [address] [id number] [address] [place] [address], [place] [address] 28 Nov, 2012 [facility] [address] [id number] [address] [place] [address], [place] [address] Nov, [facility] [address] [id number] [address] [place] [address], [place] [address] 24 Nov, 2012 [facility] [address] [id number] [address] [place] [address], [place] [address] 16 Nov, 2012 [facility] [address] [id number] [address] [place] [address], [place] [address] Nov, [facility] [address] [id number] [address] [place] [address], [place] [address] Oct, [facility] [address] [id number] [address] [place] [address], [place] [address] Oct, [facility] [address] [id number] [address] [place] [address], [place] [address] Oct, [facility] [address] [id number] [address] [place] [address], [place] [address] Oct, [facility] [address] [id number] [address] [place] [address], [place] [address] Oct, [facility] [address] [id number] [address] [place] [address], [place] [address] 05 Oct, 2012 [facility] [address] [id number] [address] [place] [address], [place] [address] 05 Oct, 2012 [facility] [address] [id number] [address] [place] [address], [place] [address] 04 Oct, 2012 [facility] [address] [id number] [address] [place] [address], [place] [address] Sep, [facility] [address] [id number] [address] [place] [address], [place] [address] Sep, [facility] [address] [id number] [address] [place] [address], [place] [address] Sep, [facility] [address] [id number] [address] [place] [address], [place] [address] 17 Aug, 2012 [facility] [address] [id number] [address] [place] [address], [place] [address] 17 Aug, 2012 [facility] [address] [id number] [address] [place] [address], [place] [address] Aug, [facility] [address] [id number] [address] [place] [address], [place] [address] Aug, [facility] [address] [id number] [address] [place] [address], [place] [address] Aug, [facility] [address] [id number] [address] [place] [address], [place] [address] Jul, [facility] [address] [id number] [address] [place] [address], [place] [address] Jul, [facility] [address] [id number] [address] [place] [address], [place] [address] Jun, [facility] [address] [id number] [address] [place] [address], [place] [address] May, [facility] [address] [id number] [address] [place] [address], [place] [address] May, [facility] [address] [id number] [address] [place] [address], [place] [address] Apr, [facility] [address] [id number] [address] [place] [address], [place] [address] March, [facility] [address] [id number] [address] [place] [address], [place] [address] March, [facility] [address] [id number] [address] [place] [address], [place] [address] March, [facility] [address] [id number] [address] [place] [address], [place] [address] March, [facility] [address] [id number] [address] [place] [address] Feb, [facility] [address] [id number] [address] [place] [address], [place] [address] Feb, [facility] [address] [id number] [address] [place] [address] Jan, [facility] [address] [id number] [address] [place] [address], [place] [address] Dec, [facility] [address] [id number] [address] [place] [address] 08 Dec, 2011 [facility] [address] [id number] [address] [place] [address], [place] [address] Dec, [facility] [address] [id number] [address] [place] [address], [place] [address] Nov, [facility] [address] [id number] [address] [place] [address] Nov, [facility] [address] [id number] [address] [place] [address] Nov, [facility] [address] [id number] [address] [place] [address] Oct, [facility] [address] [id number] [address] [place] [address] Sep, [facility] [address] [id number] [address] [place] [address] Aug, [facility] [address] [id number] [address] [place] [address] Aug, [facility] [address] [id number] [address] [place] [address] May, [facility] [address] [id number] [address] [place] [address] Sep, [facility] [address] [id number] [address] [place] [address] Sep, IMMUNIZATIONS No Known Immunizations SOCIAL HISTORY Never Assessed REASON FOR VISIT vyvanse 02/26/2019 PLAN OF CARE VITAL SIGNS MEDICATIONS Medication Instructions Dosage Frequency Start Date End Date Duration S rené Vyvanse 70 MG Orally Once a day 1 capsule in the morning 24h Feb, 28 days Active RESULTS No Results PROCEDURES No Known procedures INSTRUCTIONS MEDICATIONS ADMINISTERED No Known Medications MEDICAL (GENERAL) HISTORY Type Description Date Medical History bipolar Medical History adhd Medical History anxiety Medical History Intermittent explosive disorder Medical History Bipolar disorder Medical History Intellectual disability Surgical History No Surgical history information
--- OUTSIDE RECORDS SUMMARY | 2020-03-18 15:23 | XMS REPORT ---
Author Author Jose Cruz Mercer Doctor Organization [facility] Address Unknown Phone Unavailable Care Team Providers Care Automatic Buffer Name Role Phone Migration, Doctor Unavailable Unavailable PROBLEMS Type Condition ICD9-CM Code [id number] Code Onset Dates Condition S tatus SNOMED Code Problem Moderate intellectual disability F71 Active 52348798 Problem Attention-deficit hyperactiv ity disorder, predominantly inattentive type F90.0 Active 53689997 Problem Intermittent explosive disorder F63.81 Active 19368990 Problem Bipolar disorder, currently in remission, most recent episode unspecified F31.70 Active [id number] ALLERGIES No Information ENCOUNTERS Encounter Location Date Diagnosis [place] [address] [address] Oct, [address] [address] Sep, Intermittent explosive disorder F63.81 ; Bipolar disorder, currently in remission, most recent episode unspecified F31.70 ; Attention-deficit hyperactivity disorder, predominantly inattentive type F90.0 ; Moderate intellectual disability F71 ; Encounter to establish care Z76.89 and Abrasion, left lower leg, sequela S80.812S [place] [address] [address] 15 Sep, [address] [address] Sep, Annual physical exam Z00.00 ; Abrasion o f left lower leg, initial encounter S80.812A ; Cellulitis of left lower leg L03.116 ; Attention deficit hyperactivity disorder F90.9 ; Intermittent explosive disorder F63.81 and Intellectual disability F79 [place] [address] [address] Jul, Bipolar disorder F31.9 [place] [address] [address] Jul, Acute gastroenteritis K52.9 ; Intellectu al disability F79 and Bipolar disorder F31.9 [place] [address] [address] Jun, [place] [address] [address] Jun, Bipolar disorder F31.9 [place] [address] [address] May, Bipolar disorder F31.9 ; Intellectual di sability F79 and Attention- deficit hyperactivity disorder, predominantly inattentive type F90.0 [place] [address] [address] May, [place] [address] [address] May, Bipolar disorder F31.9 [place] [address] [address] May, Bipolar disorder F31.9 ; Attention-defic it hyperactivity disorder, predominantly inattentive type F90.0 and Moderate intellectual disability F71 [place] [address] [address] Apr, Bipolar disorder F31.9 [place] [address] [address] Apr, Bipolar disorder F31.9 and High risk med ication use Z79.899 [place] [address] [address] March, Bipolar disorder F31.9 and High risk med ication use Z79.899 [place] [address] [address] March, Bipolar disorder F31.[address] [facility] [id number] [place] [address] March, Caries K02.9 [place] [address] [address] March, Bipolar disorder F31.9 [facility] [address] [address] March, Bipolar disorder F31.9 [facility] [address] [address] Feb, Bipolar disorder F31.9 [facility] [address] [address] Feb, Bipolar disorder F31.9 ; Attention-defic it hyperactivity disorder, predominantly inattentive type F90.0 and Moderate intellectual disability F71 [facility] [address] [address] Jan, Bipolar disorder F31.9 [facility] [address] [address] Jan, Bipolar disorder F31.9 [facility] [address] [address] Jan, Dental examination Z01.20 ; 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 status requiring routine preventive dental care K08.9 and Caries K02.9 [place] [address] [address] Jan, [facility] [address] [address] Jan, Bipolar disorder F31.9 ; Moderate intell ectual disability F71 and Attention-deficit hyperactivity disorder, predominantly inattentive type F90.0 [place] [address] [address] Dec, Bipolar disorder, currently in remission , most recent episode unspecified F31.70 [place] [address] [address] Dec, Bipolar disorder, currently in remission , most recent episode unspecified F31.70 [facility] [address] [address] Dec, Bipolar disorder, currently in remission , most recent episode unspecified F31.70 [facility] [address] [place] [id number] [place] [address] Dec, [facility] [address] [address] Dec, Bipolar disorder, currently in remission , most recent episode unspecified F31.70 [facility] [address] [address] Nov, Bipolar disorder, currently in remission , most recent episode unspecified F31.70 [facility] [address] [address] Nov, [place] [address] [address] Nov, [facility] [address] [address] Nov, Bipolar disorder, currently in remission , most recent episode unspecified F31.70 [facility] [address] [place] [id number] [place] [address] Nov, Bipolar disorder, currently in remission , most recent episode unspecified F31.70 [place] [address] [address] Oct, High risk medication use Z79.899 ; Bipol ar disorder F31.9 ; Moderate intellectual disability F71 and Attention-deficit hyperactivity disorder, predominantly inattentive type F90.0 [facility] [address] [place] [id number] [place] [address] Oct, [facility] [address] [address] Sep, Bipolar disorder, currently in remission , most recent episode unspecified F31.70 [facility] [address] [facility] [place] [id number] Sep, 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 status requiring routine preventive dental care K08.9 and Arrested dental caries K02.3 [facility] [address] [place] [id number] [place] [address] Sep, Bipolar disorder, currently in remission , most recent episode unspecified F31.70 ; Moderate intellectual disability F71 and Attention-deficit hyperactivity disorder, predominantly inattentive type F90.0 [facility] [address] [address] Sep, Bipolar disorder, currently in remission , most recent episode unspecified F31.70 [facility] [address] [address] Aug, Bipolar disorder, currently in remission , most recent episode unspecified F31.70 [facility] [address] [address] Jul, Bipolar disorder, currently in remission , most recent episode unspecified F31.70 [facility] [address] [address] Jul, Bipolar disorder, currently in remission , most recent episode unspecified F31.70 [facility] [address] [address] Jun, [facility] [address] [address] Jun, Bipolar disorder, currently in remission , most recent episode unspecified F31.70 [facility] [address] [place] [id number] [place] [id number] Jun, Dental examination Z01.20 and Dental car ies K02.9 [facility] [address] [place] [id number] [place] [address] May, Bipolar disorder, currently in remission , most recent episode unspecified F31.70 [facility] [address] [address] May, Bipolar disorder, currently in remission , most recent episode unspecified F31.70 [facility] [address] [address] May, Bipolar disorder, currently in remission , most recent episode unspecified F31.70 ; Moderate intellectual disability F71 and Attention-deficit hyperactivity disorder, predominantly inattentive type F90.0 [facility] [address] [address] Apr, Bipolar disorder, unspecified F31.9 [facility] [address] [address] Apr, [facility] [address] [address] Apr, [facility] [address] [address] Apr, [facility] [address] [address] March, [facility] [address] [address] March, Bipolar disorder, currently in remission , most recent episode unspecified F31.70 ; Moderate intellectual disability F71 and Attention-deficit hyperactivity disorder, predominantly inattentive type F90.0 [facility] [address] [address] Feb, [facility] [address] [id number] Feb, Dental examination Z01.20 [facility] [address] [address] Jan, [facility] [address] [address] Jan, [facility] [address] [address] Dec, [facility] [address] [address] Nov, [facility] [address] [id number] Nov, Encounter for dental exam and cleaning w /o abnormal findings Z01.20 [facility] [address] [id number] Nov, Dental examination Z01.20 [facility] [address] [place] [address] Oct, [facility] [address] [address] Oct, Bipolar disorder, currently in remission , most recent episode unspecified F31.70 ; Moderate intellectual disability F71 and Attention-deficit hyperactivity disorder, predominantly inattentive type F90.0 [facility] [address] [address] Sep, [facility] [address] [address] Sep, [facility] [address] [address] Aug, [facility] [address] [address] Aug, Attention-deficit hyperactivity disorder , predominantly inattentive type F90.0 ; Moderate intellectual disability 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 and Bipolar disorder F31.9 [facility] [address] [place] [id number] [place] [id number] Jul, Dental examination Z01.20 and Dental car ies K02.9 [facility] [address] [address] Jul, [facility] [address] [address] Jun, Bipolar disorder F31.9 ; Attention-defic it hyperactivity disorder, predominantly inattentive type F90.0 and Moderate intellectual disability F71 [facility] [address] [address] Jun, [facility] [address] [address] May, [facility] [address] [address] Apr, [facility] [address] [address] March, Intermittent explosive disorder F63.81 ; Attention deficit hyperactivity disorder F90.9 and Bipolar disorder F31.9 [facility] [address] [address] Feb, [facility] [address] [address] Jan, [facility] [address] [address] Dec, Encounter for immunization Z23 [facility] [address] [address] Dec, Intermittent explosive disorder F63.81 ; Attention deficit hyperactivity disorder F90.9 and Bipolar disorder, currently in remission, most recent episode unspecified F31.70 [facility] [address] [address] Nov, [facility] [address] [address] Oct, [facility] [address] [address] Oct, [facility] [address] [place] [id number] [place] [id number] Oct, Dental examination Z01.20 [facility] [address] [address] Sep, [facility] [address] [address] Sep, [facility] [address] [address] Sep, Intermittent explosive disorder F63.81 ; Bipolar disorder F31.9 and Attention deficit hyperactivity disorder F90.9 [facility] [address] [address] Aug, [facility] [address] [address] Aug, [facility] [address] [address] Aug, [facility] [id number] [place] [address] 14 Aug, 2016 Attention deficit hyperactivity disorder F90.9 [facility] [address] [place] [id number] [place] [address] 16 Jul, 2016 [facility] [id number] [place] [address] Jun, [facility] [address] [place] [id number] [place] [address] May, [facility] [id number] [place] [address] Apr, [facility] [address] [place] [id number] [place] [address] Apr, Bipolar disorder F31.9 ; Attention defic it hyperactivity disorder F90.9 and Intermittent explosive disorder F63.81 [facility] [address] [place] [id number] [place] [address] March, [facility] [address] [place] [id number] [place] [address] Feb, [facility] [address] [place] [id number] [place] [address] Feb, [facility] [address] [place] [id number] [place] [address] Jan, [facility] [address] [place] [id number] [place] [address] Jan, [facility] [address] [place] [id number] [place] [address] Dec, [facility] [id number] [place] [address] Nov, [facility] [address] [place] [id number] [place] [address] Nov, [facility] [id number] [place] [address] Nov, Attention deficit hyperactivity disorder F90.9 ; Intermittent explosive disorder F63.81 and Bipolar disorder F31.9 [facility] [address] [address] Oct, [facility] [address] [address] Oct, [facility] [address] [address] Sep, [facility] [address] [address] Aug, [facility] [address] [address] Jul, [facility] [address] [address] Jul, [facility] [address] [address] Jul, Anxiety, generalized 300.02 ; Bipolar di sorder, unspecified 296.80 ; 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.00 ; 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 and Impulse control disorder, unspecified 312.30 [facility] [address] [address] Jul, [facility] [address] [address] Jun, [facility] [address] [address] May, [facility] [address] [address] Apr, [facility] [address] [address] Apr, Bipolar disorder, unspecified 296.80 ; G eneralized anxiety disorder 300.02 and 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.00 [facility] [address] [address] Apr, [facility] [address] [address] March, [facility] [id number] [place] [address] March, [facility] [id number] [place] [address] March, [facility] [id number] [place] [address] March, [facility] [id number] [place] [address] Feb, [facility] [id number] [place] [address] Feb, [facility] [id number] [place] [address] Jan, [facility] [id number] [place] [address] Jan, [facility] [id number] [place] [address] Jan, [facility] [id number] [place] [address] Jan, [facility] [id number] [place] [address] Jan, [facility] [id number] [place] [address] Dec, [facility] [id number] [place] [address] Dec, [facility] [id number] [place] [address] Nov, [facility] [id number] [place] [address] Nov, [facility] [id number] [place] [address] Nov, [facility] [id number] [place] [address] Oct, [facility] [id number] [place] [address] Oct, [facility] [address] [facility] [id number] [place] [address] Oct, [facility] [id number] [place] [address] Oct, [facility] [id number] [place] [address] Oct, [facility] [id number] [place] [address] Oct, [facility] [id number] [place] [address] Sep, [facility] [id number] [place] [address] Sep, [facility] [id number] [place] [address] Sep, [facility] [id number] [place] [address] Aug, [facility] [id number] [place] [address] Aug, [facility] [id number] [place] [address] Jul, [facility] [id number] [place] [address] Jul, [facility] [id number] [place] [address] Jun, [facility] [id number] [place] [address] Jun, [facility] [id number] [place] [address] Jun, [facility] [id number] [place] [address] Jun, [facility] [id number] [place] [address] May, [facility] [address] [facility] [id number] [place] [address] May, [facility] [address] [facility] [id number] [place] [address] May, [facility] [address] [facility] [id number] [place] [address] Apr, [facility] [id number] [place] [address] Apr, [facility] [address] [facility] [id number] [place] [address] Apr, [facility] [address] [facility] [id number] [place] [address] Apr, [facility] [id number] [place] [address] March, [facility] [id number] [place] [address] March, [facility] [id number] [place] [address] March, [facility] [id number] [place] [address] March, [facility] [id number] [place] [address] Feb, [facility] [id number] [place] [address] Feb, [facility] [id number] [place] [address] Jan, [facility] [address] [facility] [id number] [place] [address] Jan, [facility] [id number] [place] [address] Jan, [facility] [id number] [place] [address] Jan, [facility] [id number] [place] [address] Jan, [facility] [address] [facility] [id number] [place] [address] Jan, [facility] [id number] [place] [address] Jan, [facility] [id number] [place] [address] Jan, [facility] [id number] [place] [address] Dec, [facility] [address] [facility] [id number] [place] [address] Dec, [facility] [id number] [place] [address] Dec, [facility] [id number] [place] [address] Dec, [facility] [id number] [place] [address] Nov, [facility] [id number] [place] [address] Nov, [facility] [id number] [place] [address] Oct, [facility] [id number] [place] [address] Oct, [facility] [id number] [place] [address] Oct, [facility] [id number] [place] [address] Oct, [facility] [id number] [place] [address] Sep, [facility] [id number] [place] [address] Sep, [facility] [id number] [place] [address] Sep, [facility] [id number] [place] [address] 07 Sep, 2013 [facility] [id number] [place] [address] Aug, [facility] [id number] [place] [address] Aug, [facility] [id number] [place] [address] Aug, [facility] [id number] [place] [address] Jul, [facility] [id number] [place] [address] Jul, [facility] [id number] [place] [address] Jun, [facility] [id number] [place] [address] Jun, [facility] [id number] [place] [address] May, [facility] [id number] [place] [address] May, [facility] [id number] [place] [address] Apr, [facility] [id number] [place] [address] March, [facility] [id number] [place] [address] March, [facility] [id number] [place] [address] Feb, [facility] [id number] [place] [address] Jan, [facility] [id number] [place] [address] Jan, [facility] [id number] [place] [address] Dec, [facility] [id number] [place] [address] Dec, [facility] [id number] [place] [address] Nov, [facility] [id number] [place] [address] Nov, [facility] [id number] [place] [address] Nov, [facility] [id number] [place] [address] Nov, [facility] [id number] [place] [address] Nov, [facility] [id number] [place] [address] Oct, [facility] [id number] [place] [address] Oct, [facility] [id number] [place] [address] Oct, [facility] [id number] [place] [address] Oct, [facility] [id number] [place] [address] Oct, [facility] [id number] [place] [address] Oct, [facility] [id number] [place] [address] 05 Oct, 2012 [facility] [id number] [place] [address] Oct, [facility] [id number] [place] [address] Sep, [facility] [id number] [place] [address] Sep, [facility] [id number] [place] [address] Sep, [facility] [id number] [place] [address] Aug, [facility] [id number] [place] [address] Aug, [facility] [id number] [place] [address] Aug, [facility] [id number] [place] [address] Aug, [facility] [id number] [place] [address] Aug, [facility] [id number] [place] [address] Jul, [facility] [id number] [place] [address] Jul, [facility] [id number] [place] [address] Jun, [facility] [id number] [place] [address] May, [facility] [id number] [place] [address] May, [facility] [id number] [place] [address] Apr, [facility] [facility] [id number] [place] [address] March, [facility] [id number] [place] [address] March, [facility] [id number] [place] [address] March, [facility] [id number] [place] [address] March, [facility] [id number] [place] [address] Feb, [facility] [id number] [place] [address] Feb, [facility] [id number] [place] [address] Jan, [facility] [id number] [place] [address] Dec, [facility] [id number] [place] [address] Dec, [facility] [id number] [place] [address] Dec, [facility] [id number] [place] [address] Nov, [facility] [address] [address] Nov, [facility] [id number] [place] [id number] Nov, [facility] [id number] [place] [address] Oct, [facility] [id number] [place] [address] Sep, [facility] [address] [address] Aug, [facility] [id number] [place] [address] Aug, [facility] [id number] [place] [address] May, [facility] [id number] [place] [address] Sep, [facility] [address] [address] Sep, IMMUNIZATIONS No Known Immunizations SOCIAL HISTORY [...]
--- OUTSIDE RECORDS SUMMARY | 2020-03-18 15:23 | XMS REPORT ---
Author Author Jose Cruz Mercer Doctor Organization [facility] Address Unknown Phone Unavailable Care Team Providers Care Certified Personal Trainer Name Role Phone Migration, Doctor Unavailable Unavailable PROBLEMS Type Condition ICD9-CM Code [id number] Code Onset Dates Condition S tatus SNOMED Code Problem Moderate intellectual disability F71 Active 96326892 Problem Attention-deficit hyperactiv ity disorder, predominantly inattentive type F90.0 Active 58574098 Problem Intermittent explosive disorder F63.81 Active 09401341 Problem Bipolar disorder, currently in remission, most recent episode unspecified F31.70 Active [id number] ALLERGIES No Information ENCOUNTERS Encounter Location Date Diagnosis [place] [address] [address] Oct, [address] [address] Sep, Intermittent explosive disorder F63.81 ; Bipolar disorder, currently in remission, most recent episode unspecified F31.70 ; Attention-deficit hyperactivity disorder, predominantly inattentive type F90.0 ; Moderate intellectual disability F71 ; Encounter to establish care Z76.89 and Abrasion, left lower leg, sequela S80.812S [place] [address] [address] 15 Sep, [address] [address] Sep, Annual physical exam Z00.00 ; Abrasion o f left lower leg, initial encounter S80.812A ; Cellulitis of left lower leg L03.116 ; Attention deficit hyperactivity disorder F90.9 ; Intermittent explosive disorder F63.81 and Intellectual disability F79 [place] [address] [address] Jul, Bipolar disorder F31.9 [place] [address] [address] Jul, Acute gastroenteritis K52.9 ; Intellectu al disability F79 and Bipolar disorder F31.9 [place] [address] [address] Jun, [place] [address] [address] Jun, Bipolar disorder F31.9 [place] [address] [address] May, Bipolar disorder F31.9 ; Intellectual di sability F79 and Attention- deficit hyperactivity disorder, predominantly inattentive type F90.0 [place] [address] [address] May, [place] [address] [address] May, Bipolar disorder F31.9 [place] [address] [address] May, Bipolar disorder F31.9 ; Attention-defic it hyperactivity disorder, predominantly inattentive type F90.0 and Moderate intellectual disability F71 [place] [address] [address] Apr, Bipolar disorder F31.9 [place] [address] [address] Apr, Bipolar disorder F31.9 and High risk med ication use Z79.899 [place] [address] [address] March, Bipolar disorder F31.9 and High risk med ication use Z79.899 [place] [address] [address] March, Bipolar disorder F31.9 [facility] [id number] [place] [address] March, Caries K02.9 [place] [address] [address] March, Bipolar disorder F31.9 [facility] [address] [address] March, Bipolar disorder F31.9 [facility] [address] [address] Feb, Bipolar disorder F31.9 [facility] [address] [address] Feb, Bipolar disorder F31.9 ; Attention-defic it hyperactivity disorder, predominantly inattentive type F90.0 and Moderate intellectual disability F71 [facility] [address] [address] Jan, Bipolar disorder F31.9 [facility] [address] [address] Jan, Bipolar disorder F31.9 [facility] [address] [address] Jan, Dental examination Z01.20 ; 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 status requiring routine preventive dental care K08.9 and Caries K02.9 [place] [address] [address] Jan, [facility] [address] [address] Jan, Bipolar disorder F31.9 ; Moderate intell ectual disability F71 and Attention-deficit hyperactivity disorder, predominantly inattentive type F90.0 [place] [address] [address] Dec, Bipolar disorder, currently in remission , most recent episode unspecified F31.70 [place] [address] [address] Dec, Bipolar disorder, currently in remission , most recent episode unspecified F31.70 [facility] [address] [address] Dec, Bipolar disorder, currently in remission , most recent episode unspecified F31.70 [facility] [address] [place] [id number] [place] [address] Dec, [facility] [address] [address] Dec, Bipolar disorder, currently in remission , most recent episode unspecified F31.70 [facility] [address] [address] Nov, Bipolar disorder, currently in remission , most recent episode unspecified F31.70 [facility] [address] [address] Nov, [place] [address] [address] Nov, [facility] [address] [address] Nov, Bipolar disorder, currently in remission , most recent episode unspecified F31.70 [facility] [address] [place] [id number] [place] [address] Nov, Bipolar disorder, currently in remission , most recent episode unspecified F31.70 [place] [address] [address] Oct, High risk medication use Z79.899 ; Bipol ar disorder F31.9 ; Moderate intellectual disability F71 and Attention-deficit hyperactivity disorder, predominantly inattentive type F90.0 [facility] [address] [place] [id number] [place] [address] Oct, [facility] [address] [address] Sep, Bipolar disorder, currently in remission , most recent episode unspecified F31.70 [facility] [address] [id number] [place] [id number] Sep, 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 status requiring routine preventive dental care K08.9 and Arrested dental caries K02.3 [facility] [address] [place] [id number] [place] [address] Sep, Bipolar disorder, currently in remission , most recent episode unspecified F31.70 ; Moderate intellectual disability F71 and Attention-deficit hyperactivity disorder, predominantly inattentive type F90.0 [facility] [address] [address] Sep, Bipolar disorder, currently in remission , most recent episode unspecified F31.70 [facility] [address] [address] Aug, Bipolar disorder, currently in remission , most recent episode unspecified F31.70 [facility] [address] [address] Jul, Bipolar disorder, currently in remission , most recent episode unspecified F31.70 [facility] [address] [address] Jul, Bipolar disorder, currently in remission , most recent episode unspecified F31.70 [facility] [address] [address] Jun, [facility] [address] [address] Jun, Bipolar disorder, currently in remission , most recent episode unspecified F31.70 [facility] [address] [place] [id number] [place] [id number] Jun, Dental examination Z01.20 and Dental car ies K02.9 [facility] [address] [place] [id number] [place] [address] May, Bipolar disorder, currently in remission , most recent episode unspecified F31.70 [facility] [address] [address] May, Bipolar disorder, currently in remission , most recent episode unspecified F31.70 [facility] [address] [address] May, Bipolar disorder, currently in remission , most recent episode unspecified F31.70 ; Moderate intellectual disability F71 and Attention-deficit hyperactivity disorder, predominantly inattentive type F90.0 [facility] [address] [address] Apr, Bipolar disorder, unspecified F31.9 [facility] [address] [address] Apr, [facility] [address] [address] Apr, [facility] [address] [address] Apr, [facility] [address] [address] March, [facility] [address] [address] March, Bipolar disorder, currently in remission , most recent episode unspecified F31.70 ; Moderate intellectual disability F71 and Attention-deficit hyperactivity disorder, predominantly inattentive type F90.0 [facility] [address] [address] Feb, [facility] [address] [id number] Feb, Dental examination Z01.20 [facility] [address] [address] Jan, [facility] [address] [address] Jan, [facility] [address] [address] Dec, [facility] [address] [address] Nov, [facility] [address] [id number] Nov, Encounter for dental exam and cleaning w /o abnormal findings Z01.20 [facility] [address] [id number] Nov, Dental examination Z01.20 [facility] [address] [place] [address] Oct, [facility] [address] [address] Oct, Bipolar disorder, currently in remission , most recent episode unspecified F31.70 ; Moderate intellectual disability F71 and Attention-deficit hyperactivity disorder, predominantly inattentive type F90.0 [facility] [address] [address] Sep, [facility] [address] [address] Sep, [facility] [address] [address] Aug, [facility] [address] [address] Aug, Attention-deficit hyperactivity disorder , predominantly inattentive type F90.0 ; Moderate intellectual disability F71 and Bipolar disorder F31.9 [facility] [address] [place] [id number] [place] [id number] Jul, Dental examination Z01.20 and Dental car ies K02.9 [facility] [address] [address] Jul, [facility] [address] [address] Jun, Bipolar disorder F31.9 ; Attention-defic it hyperactivity disorder, predominantly inattentive type F90.0 and Moderate intellectual disability F71 [facility] [address] [address] Jun, [facility] [address] [address] May, [facility] [address] [address] Apr, [facility] [address] [address] March, Intermittent explosive disorder F63.81 ; Attention deficit hyperactivity disorder F90.9 and Bipolar disorder F31.9 [facility] [address] [address] Feb, [facility] [address] [address] Jan, [facility] [address] [address] Dec, Encounter for immunization Z23 [facility] [address] [address] Dec, Intermittent explosive disorder F63.81 ; Attention deficit hyperactivity disorder F90.9 and Bipolar disorder, currently in remission, most recent episode unspecified F31.70 [facility] [address] [address] Nov, [facility] [address] [address] Oct, [facility] [address] [address] Oct, [facility] [address] [place] [id number] [place] [id number] Oct, Dental examination Z01.20 [facility] [address] [address] Sep, [facility] [address] [address] Sep, [facility] [address] [address] Sep, Intermittent explosive disorder F63.81 ; Bipolar disorder F31.9 and Attention deficit hyperactivity disorder F90.9 [facility] [address] [address] Aug, [facility] [address] [address] Aug, [facility] [address] [address] Aug, [facility] [address] [id number] [place] [address] 14 Aug, 2016 Attention deficit hyperactivity disorder F90.9 [facility] [address] [place] [id number] [place] [address] 16 Jul, 2016 [facility] [address] [id number] [place] [address] Jun, [facility] [address] [place] [id number] [place] [address] May, [facility] [address] [id number] [place] [address] Apr, [facility] [address] [place] [id number] [place] [address] Apr, Bipolar disorder F31.9 ; Attention defic it hyperactivity disorder F90.9 and Intermittent explosive disorder F63.81 [facility] [address] [place] [id number] [place] [address] March, [facility] [address] [place] [id number] [place] [address] Feb, [facility] [address] [place] [id number] [place] [address] Feb, [facility] [address] [place] [id number] [place] [address] Jan, [facility] [address] [place] [id number] [place] [address] Jan, [facility] [address] [place] [id number] [place] [address] Dec, [facility] [address] [id number] [place] [address] Nov, [facility] [address] [place] [id number] [place] [address] Nov, [facility] [address] [id number] [place] [address] Nov, Attention deficit hyperactivity disorder F90.9 ; Intermittent explosive disorder F63.81 and Bipolar disorder F31.9 [facility] [address] [address] Oct, [facility] [address] [address] Oct, [facility] [address] [address] Sep, [facility] [address] [address] Aug, [facility] [address] [address] Jul, [facility] [address] [address] Jul, [facility] [address] [address] Jul, Anxiety, generalized 300.02 ; Bipolar di sorder, unspecified 296.80 ; 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.00 ; 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 and Impulse control disorder, unspecified 312.30 [facility] [address] [address] Jul, [facility] [address] [address] Jun, [facility] [address] [address] May, [facility] [address] [address] Apr, [facility] [address] [address] Apr, Bipolar disorder, unspecified 296.80 ; G eneralized anxiety disorder 300.02 and 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.00 [facility] [address] [address] Apr, [facility] [address] [address] March, [facility] [address] [id number] [place] [address] March, [facility] [address] [id number] [place] [address] March, [facility] [address] [id number] [place] [address] March, [facility] [address] [id number] [place] [address] Feb, [facility] [address] [id number] [place] [address] Feb, [facility] [address] [id number] [place] [address] Jan, [facility] [address] [id number] [place] [address] Jan, [facility] [address] [id number] [place] [address] Jan, [facility] [address] [id number] [place] [address] Jan, [facility] [address] [id number] [place] [address] Jan, [facility] [address] [id number] [place] [address] Dec, [facility] [address] [id number] [place] [address] Dec, [facility] [address] [id number] [place] [address] Nov, [facility] [address] [id number] [place] [address] Nov, [facility] [address] [id number] [place] [address] Nov, [facility] [address] [id number] [place] [address] Oct, [facility] [address] [id number] [place] [address] Oct, [facility] [address] [facility] [id number] [place] [address] Oct, [facility] [address] [id number] [place] [address] Oct, [facility] [address] [id number] [place] [address] Oct, [facility] [address] [id number] [place] [address] Oct, [facility] [address] [id number] [place] [address] Sep, [facility] [address] [id number] [place] [address] Sep, [facility] [address] [id number] [place] [address] Sep, [facility] [address] [id number] [place] [address] Aug, [facility] [address] [id number] [place] [address] Aug, [facility] [address] [id number] [place] [address] Jul, [facility] [address] [id number] [place] [address] Jul, [facility] [address] [id number] [place] [address] Jun, [facility] [address] [id number] [place] [address] Jun, [facility] [address] [id number] [place] [address] Jun, [facility] [address] [id number] [place] [address] Jun, [facility] [address] [id number] [place] [address] May, [facility] [address] [facility] [id number] [facility] [place] [address] May, [facility] [address] [facility] [id number] [place] [address] May, [facility] [address] [facility] [id number] [place] [address] Apr, [facility] [address] [id number] [place] [address] Apr, [facility] [address] [facility] [id number] [place] [address] Apr, [facility] [address] [facility] [id number] [place] [address] Apr, [facility] [address] [id number] [place] [address] March, [facility] [address] [id number] [place] [address] March, [facility] [address] [id number] [place] [address] March, [facility] [address] [id number] [place] [address] March, [facility] [address] [id number] [place] [address] Feb, [facility] [address] [id number] [place] [address] Feb, [facility] [address] [id number] [place] [address] Jan, [facility] [address] [facility] [id number] [place] [address] Jan, [facility] [address] [id number] [place] [address] Jan, [facility] [address] [id number] [place] [address] Jan, [facility] [address] [id number] [place] [address] Jan, [facility] [address] [facility] [id number] [place] [address] Jan, [facility] [address] [id number] [place] [address] Jan, [facility] [address] [id number] [place] [address] Jan, [facility] [address] [id number] [place] [address] Dec, [facility] [address] [facility] [id number] [place] [address] Dec, [facility] [address] [id number] [place] [address] Dec, [facility] [address] [id number] [place] [address] Dec, [facility] [address] [id number] [place] [address] Nov, [facility] [address] [id number] [place] [address] Nov, [facility] [address] [id number] [place] [address] Oct, [facility] [address] [id number] [place] [address] Oct, [facility] [address] [id number] [place] [address] Oct, [facility] [address] [id number] [place] [address] Oct, [facility] [address] [id number] [place] [address] Sep, [facility] [address] [id number] [place] [address] Sep, [facility] [address] [id number] [place] [address] Sep, [facility] [address] [id number] [place] [address] 07 Sep, 2013 [facility] [address] [id number] [place] [address] Aug, [facility] [address] [id number] [place] [address] Aug, [facility] [address] [id number] [place] [address] Aug, [facility] [address] [id number] [place] [address] Jul, [facility] [address] [id number] [place] [address] Jul, [facility] [address] [id number] [place] [address] Jun, [facility] [address] [id number] [place] [address] Jun, [facility] [address] [id number] [place] [address] May, [facility] [address] [id number] [place] [address] May, [facility] [address] [id number] [place] [address] Apr, [facility] [address] [id number] [place] [address] March, [facility] [address] [id number] [place] [address] March, [facility] [address] [id number] [place] [address] Feb, [facility] [id number] [place] [address] Jan, [facility] [address] [id number] [place] [address] Jan, [facility] [address] [id number] [place] [address] Dec, [facility] [address] [id number] [place] [address] Dec, [facility] [address] [id number] [place] [address] Nov, [facility] [address] [id number] [place] [address] Nov, [facility] [address] [id number] [place] [address] Nov, [facility] [address] [id number] [place] [address] Nov, [facility] [address] [id number] [place] [address] Nov, [facility] [address] [id number] [place] [address] Oct, [facility] [address] [id number] [place] [address] Oct, [facility] [address] [id number] [place] [address] Oct, [facility] [address] [id number] [place] [address] Oct, [facility] [address] [id number] [place] [address] Oct, [facility] [address] [id number] [place] [address] Oct, [facility] [address] [id number] [place] [address] 05 Oct, 2012 [facility] [address] [id number] [place] [address] Oct, [facility] [address] [id number] [place] [address] Sep, [facility] [address] [id number] [place] [address] Sep, [facility] [address] [id number] [place] [address] Sep, [facility] [facility] [address] [id number] [place] [address] Aug, [facility] [address] [id number] [place] [address] Aug, [facility] [address] [id number] [place] [address] Aug, [facility] [address] [id number] [place] [address] Aug, [facility] [address] [id number] [place] [address] Aug, [facility] [address] [id number] [place] [address] Jul, [facility] [address] [id number] [place] [address] Jul, [facility] [address] [id number] [place] [address] Jun, [facility] [address] [id number] [place] [address] May, [facility] [address] [id number] [place] [address] May, [facility] [address] [id number] [place] [address] Apr, [facility] [address] [id number] [place] [address] March, [facility] [address] [id number] [place] [address] March, [facility] [address] [id number] [place] [address] March, [facility] [address] [id number] [place] [address] March, [facility] [address] [id number] [place] [address] Feb, [facility] [id number] [place] [address] Feb, [facility] [id number] [place] [address] Jan, [facility] [id number] [place] [address] Dec, [facility] [id number] [place] [address] Dec, [facility] [id number] [place] [address] Dec, [facility] [id number] [place] [address] Nov, [facility] [address] [address] Nov, [facility] [id number] [place] [address] Nov, [facility] [id number] [place] [address] Oct, [facility] [id number] [place] [address] Sep, [facility] [address] [address] Aug, [facility] [id number] [place] [address] Aug, [facility] [id number] [place] [address] May, [facility] [id number] [place] [address] Sep, [facility] [address] [address] Sep, IMMUNIZATIONS No Known Immunizations SOCIAL HISTORY [...]
--- OUTSIDE RECORDS SUMMARY | 2020-03-18 15:23 | XMS REPORT ---
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 Active 90978581 Problem Attention-deficit hyperactiv ity disorder, predominantly inattentive type F90.0 Active 24546288 Problem Intermittent explosive disorder F63.81 Active 03171570 Problem Bipolar disorder, currently in remission, most recent episode unspecified F31.70 Active [id number] ALLERGIES No Information ENCOUNTERS Encounter Location Date Diagnosis [place] [address] [address] Oct, [address] [address] Sep, Intermittent explosive disorder F63.81 ; Bipolar disorder, currently in remission, most recent episode unspecified F31.70 ; Attention-deficit hyperactivity disorder, predominantly inattentive type F90.0 ; Moderate intellectual disability F71 ; Encounter to establish care Z76.89 and Abrasion, left lower leg, sequela S80.812S [place] [address] [address] 15 Sep, [address] [address] Sep, Annual physical exam Z00.00 ; Abrasion o f left lower leg, initial encounter S80.812A ; Cellulitis of left lower leg L03.116 ; Attention deficit hyperactivity disorder F90.9 ; Intermittent explosive disorder F63.81 and Intellectual disability F79 [place] [address] [address] Jul, Bipolar disorder F31.9 [place] [address] [address] Jul, Acute gastroenteritis K52.9 ; Intellectu al disability F79 and Bipolar disorder F31.9 [place] [address] [address] Jun, [place] [address] [address] Jun, Bipolar disorder F31.9 [place] [address] [address] May, Bipolar disorder F31.9 ; Intellectual di sability F79 and Attention- deficit hyperactivity disorder, predominantly inattentive type F90.0 [place] [address] [address] May, [place] [address] [address] May, Bipolar disorder F31.9 [place] [address] [address] May, Bipolar disorder F31.9 ; Attention-defic it hyperactivity disorder, predominantly inattentive type F90.0 and Moderate intellectual disability F71 [place] [address] [address] Apr, Bipolar disorder F31.9 [place] [address] [address] Apr, Bipolar disorder F31.9 and High risk med ication use Z79.899 [place] [address] [address] March, Bipolar disorder F31.9 and High risk med ication use Z79.899 [place] [address] [address] March, Bipolar disorder F31.9 [facility] [address] [id number] [address] March, Caries K02.9 [place] [address] [address] March, Bipolar disorder F31.9 [facility] [address] [address] March, Bipolar disorder F31.9 [facility] [address] [address] Feb, Bipolar disorder F31.9 [facility] [address] [address] Feb, Bipolar disorder F31.9 ; Attention-defic it hyperactivity disorder, predominantly inattentive type F90.0 and Moderate intellectual disability F71 [facility] [address] [address] Jan, Bipolar disorder F31.9 [facility] [address] [address] Jan, Bipolar disorder F31.9 [facility] [address] [address] Jan, Dental examination Z01.20 ; 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 status requiring routine preventive dental care K08.9 and Caries K02.9 [place] [address] [address] Jan, [facility] [address] [address] Jan, Bipolar disorder F31.9 ; Moderate intell ectual disability F71 and Attention-deficit hyperactivity disorder, predominantly inattentive type F90.0 [place] [address] [address] Dec, Bipolar disorder, currently in remission , most recent episode unspecified F31.70 [place] [address] [address] Dec, Bipolar disorder, currently in remission , most recent episode unspecified F31.70 [facility] [address] [address] Dec, Bipolar disorder, currently in remission , most recent episode unspecified F31.70 [facility] [address] [place] [id number] [place] [address] Dec, [facility] [address] [address] Dec, Bipolar disorder, currently in remission , most recent episode unspecified F31.70 [facility] [address] [address] Nov, Bipolar disorder, currently in remission , most recent episode unspecified F31.70 [facility] [address] [address] Nov, [place] [address] [address] Nov, [facility] [address] [address] Nov, Bipolar disorder, currently in remission , most recent episode unspecified F31.70 [facility] [address] [place] [id number] [place] [address] Nov, Bipolar disorder, currently in remission , most recent episode unspecified F31.70 [place] [address] [address] Oct, High risk medication use Z79.899 ; Bipol ar disorder F31.9 ; Moderate intellectual disability F71 and Attention-deficit hyperactivity disorder, predominantly inattentive type F90.0 [facility] [address] [place] [id number] [place] [address] Oct, [facility] [address] [address] Sep, Bipolar disorder, currently in remission , most recent episode unspecified F31.70 [facility] [address] [id number] [place] [id number] Sep, 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 status requiring routine preventive dental care K08.9 and Arrested dental caries K02.3 [facility] [address] [place] [address] [place] [address] Sep, Bipolar disorder, currently in remission , most recent episode unspecified F31.70 ; Moderate intellectual disability F71 and Attention-deficit hyperactivity disorder, predominantly inattentive type F90.0 [facility] [address] [address] Sep, Bipolar disorder, currently in remission , most recent episode unspecified F31.70 [facility] [address] [address] Aug, Bipolar disorder, currently in remission , most recent episode unspecified F31.70 [facility] [address] [address] Jul, Bipolar disorder, currently in remission , most recent episode unspecified F31.70 [facility] [address] [address] Jul, Bipolar disorder, currently in remission , most recent episode unspecified F31.70 [facility] [address] [address] Jun, [facility] [address] [address] Jun, Bipolar disorder, currently in remission , most recent episode unspecified F31.70 [facility] [address] [place] [id number] [place] [id number] Jun, Dental examination Z01.20 and Dental car ies K02.9 [facility] [address] [place] [address] [place] [address] May, Bipolar disorder, currently in remission , most recent episode unspecified F31.70 [facility] [address] [address] May, Bipolar disorder, currently in remission , most recent episode unspecified F31.70 [facility] [address] [address] May, Bipolar disorder, currently in remission , most recent episode unspecified F31.70 ; Moderate intellectual disability F71 and Attention-deficit hyperactivity disorder, predominantly inattentive type F90.0 [facility] [address] [address] Apr, Bipolar disorder, unspecified F31.9 [facility] [address] [address] Apr, [facility] [address] [address] Apr, [facility] [address] [address] Apr, [facility] [address] [address] March, [facility] [address] [address] March, Bipolar disorder, currently in remission , most recent episode unspecified F31.70 ; Moderate intellectual disability F71 and Attention-deficit hyperactivity disorder, predominantly inattentive type F90.0 [facility] [address] [address] Feb, [facility] [address] [id number] Feb, Dental examination Z01.20 [facility] [address] [address] Jan, [facility] [address] [address] Jan, [facility] [address] [address] Dec, [facility] [address] [address] Nov, [facility] [address] [id number] Nov, Encounter for dental exam and cleaning w /o abnormal findings Z01.20 [facility] [address] [id number] Nov, Dental examination Z01.20 [facility] [address] [place] [address] Oct, [facility] [address] [address] Oct, Bipolar disorder, currently in remission , most recent episode unspecified F31.70 ; Moderate intellectual disability F71 and Attention-deficit hyperactivity disorder, predominantly inattentive type F90.0 [facility] [address] [address] Sep, [facility] [address] [address] Sep, [facility] [address] [address] Aug, [facility] [address] [address] Aug, Attention-deficit hyperactivity disorder , predominantly inattentive type F90.0 ; Moderate intellectual disability F71 and Bipolar disorder F31.9 [facility] [address] [place] [id number] [place] [id number] Jul, Dental examination Z01.20 and Dental car ies K02.9 [facility] [address] [address] Jul, [facility] [address] [address] Jun, Bipolar disorder F31.9 ; Attention-defic it hyperactivity disorder, predominantly inattentive type F90.0 and Moderate intellectual disability F71 [facility] [address] [address] Jun, [facility] [address] [address] May, [facility] [address] [address] Apr, [facility] [address] [address] March, Intermittent explosive disorder F63.81 ; Attention deficit hyperactivity disorder F90.9 and Bipolar disorder F31.9 [facility] [address] [address] Feb, [facility] [address] [address] Jan, [facility] [address] [address] Dec, Encounter for immunization Z23 [facility] [address] [address] Dec, Intermittent explosive disorder F63.81 ; Attention deficit hyperactivity disorder F90.9 and Bipolar disorder, currently in remission, most recent episode unspecified F31.70 [facility] [address] [address] Nov, [facility] [address] [address] Oct, [facility] [address] [address] Oct, [facility] [address] [place] [id number] [place] [id number] Oct, Dental examination Z01.20 [facility] [address] [address] Sep, [facility] [address] [address] Sep, [facility] [address] [address] Sep, Intermittent explosive disorder F63.81 ; Bipolar disorder F31.9 and Attention deficit hyperactivity disorder F90.9 [facility] [address] [address] Aug, [facility] [address] [address] Aug, [facility] [address] [address] Aug, [facility] [address] [id number] [place] [address] 14 Aug, 2016 Attention deficit hyperactivity disorder F90.9 [facility] [address] [place] [id number] [place] [address] 16 Jul, 2016 [facility] [address] [id number] [place] [address] Jun, [facility] [address] [place] [id number] [place] [address] May, [facility] [address] [id number] [place] [address] Apr, [facility] [address] [place] [id number] [place] [address] Apr, Bipolar disorder F31.9 ; Attention defic it hyperactivity disorder F90.9 and Intermittent explosive disorder F63.81 [facility] [address] [place] [id number] [place] [address] March, [facility] [address] [place] [id number] [place] [address] Feb, [facility] [address] [place] [id number] [place] [address] Feb, [facility] [address] [place] [id number] [place] [address] Jan, [facility] [address] [place] [id number] [place] [address] Jan, [facility] [address] [place] [id number] [place] [address] Dec, [facility] [address] [id number] [place] [address] Nov, [facility] [address] [place] [id number] [place] [address] Nov, [facility] [address] [id number] [place] [address] Nov, Attention deficit hyperactivity disorder F90.9 ; Intermittent explosive disorder F63.81 and Bipolar disorder F31.9 [facility] [address] [address] Oct, [facility] [address] [address] Oct, [facility] [address] [address] Sep, [facility] [address] [address] Aug, [facility] [address] [address] Jul, [facility] [address] [address] Jul, [facility] [address] [address] Jul, Anxiety, generalized 300.02 ; Bipolar di sorder, unspecified 296.80 ; 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.00 ; 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 and Impulse control disorder, unspecified 312.30 [facility] [address] [address] Jul, [facility] [address] [address] Jun, [facility] [address] [address] May, [facility] [address] [address] Apr, [facility] [address] [address] Apr, Bipolar disorder, unspecified 296.80 ; G eneralized anxiety disorder 300.02 and 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.00 [facility] [address] [address] Apr, [facility] [address] [address] March, [facility] [address] [id number] [place] [address] March, [facility] [address] [id number] [place] [address] March, [facility] [address] [id number] [place] [address] March, [facility] [address] [id number] [place] [address] Feb, [facility] [address] [id number] [place] [address] Feb, [facility] [address] [id number] [place] [address] Jan, [facility] [address] [id number] [place] [address] Jan, [facility] [address] [id number] [place] [address] Jan, [facility] [address] [id number] [place] [address] Jan, [facility] [address] [id number] [place] [address] Jan, [facility] [address] [id number] [place] [address] Dec, [facility] [address] [id number] [place] [address] Dec, [facility] [address] [id number] [place] [address] Nov, [facility] [address] [id number] [place] [address] Nov, [facility] [address] [id number] [place] [address] Nov, [facility] [address] [id number] [place] [address] Oct, [facility] [address] [id number] [place] [address] Oct, [facility] [address] [facility] [id number] [place] [address] Oct, [facility] [address] [id number] [place] [address] Oct, [facility] [address] [id number] [place] [address] Oct, [facility] [address] [id number] [place] [address] Oct, [facility] [address] [id number] [place] [address] Sep, [facility] [address] [id number] [place] [address] Sep, [facility] [address] [id number] [place] [address] Sep, [facility] [address] [id number] [place] [address] Aug, [facility] [address] [id number] [place] [address] Aug, [facility] [address] [id number] [place] [address] Jul, [facility] [address] [id number] [place] [address] Jul, [facility] [address] [id number] [place] [address] Jun, [facility] [address] [id number] [place] [address] Jun, [facility] [address] [id number] [place] [address] Jun, [facility] [address] [id number] [place] [address] Jun, [facility] [address] [id number] [place] [address] May, [facility] [address] [facility] [id number] [place] [address] May, [facility] [address] [facility] [id number] [place] [address] May, [facility] [address] [facility] [id number] [place] [address] Apr, [facility] [address] [id number] [place] [address] Apr, [facility] [address] [facility] [id number] [place] [address] Apr, [facility] [address] [facility] [id number] [place] [address] Apr, [facility] [address] [id number] [place] [address] March, [facility] [address] [id number] [place] [address] March, [facility] [address] [id number] [place] [address] March, [facility] [address] [id number] [place] [address] March, [facility] [address] [id number] [place] [address] Feb, [facility] [address] [id number] [place] [address] Feb, [facility] [address] [id number] [place] [address] Jan, [facility] [address] [facility] [id number] [place] [address] Jan, [facility] [address] [id number] [place] [address] Jan, [facility] [address] [id number] [place] [address] Jan, [facility] [address] [id number] [place] [address] Jan, [facility] [address] [facility] [id number] [place] [address] Jan, [facility] [address] [id number] [place] [address] Jan, [facility] [address] [id number] [place] [address] Jan, [facility] [address] [id number] [place] [address] Dec, [facility] [address] [facility] [id number] [place] [address] Dec, [facility] [address] [id number] [place] [address] Dec, [facility] [address] [id number] [place] [address] Dec, [facility] [address] [id number] [place] [address] Nov, [facility] [address] [id number] [place] [address] Nov, [facility] [address] [id number] [place] [address] Oct, [facility] [address] [id number] [place] [address] Oct, [facility] [address] [id number] [place] [address] Oct, [facility] [address] [id number] [place] [address] Oct, [facility] [address] [id number] [place] [address] Sep, [facility] [address] [id number] [place] [address] Sep, [facility] [address] [id number] [place] [address] Sep, [facility] [address] [id number] [place] [address] 07 Sep, 2013 [facility] [address] [id number] [place] [address] Aug, [facility] [address] [id number] [place] [address] Aug, [facility] [address] [id number] [place] [address] Aug, [facility] [address] [id number] [place] [address] Jul, [facility] [address] [id number] [place] [address] Jul, [facility] [address] [id number] [place] [address] Jun, [facility] [address] [id number] [place] [address] Jun, [facility] [address] [id number] [place] [address] May, [facility] [address] [id number] [place] [address] May, [facility] [address] [id number] [place] [address] Apr, [facility] [address] [id number] [place] [address] March, [facility] [address] [id number] [place] [address] March, [facility] [address] [id number] [place] [address] Feb, [facility] [id number] [place] [address] Jan, [facility] [address] [id number] [place] [address] Jan, [facility] [address] [id number] [place] [address] Dec, [facility] [address] [id number] [place] [address] Dec, [facility] [address] [id number] [place] [address] Nov, [facility] [address] [id number] [place] [address] Nov, [facility] [address] [id number] [place] [address] Nov, [facility] [address] [id number] [place] [address] Nov, [facility] [address] [id number] [place] [address] Nov, [facility] [address] [id number] [place] [address] Oct, [facility] [address] [id number] [place] [address] Oct, [facility] [address] [id number] [place] [address] Oct, [facility] [address] [id number] [place] [address] Oct, [facility] [address] [id number] [place] [address] Oct, [facility] [address] [id number] [place] [address] Oct, [facility] [address] [id number] [place] [address] 05 Oct, 2012 [facility] [address] [id number] [place] [address] Oct, [facility] [address] [id number] [place] [address] Sep, [facility] [address] [id number] [place] [address] Sep, [facility] [address] [id number] [place] [address] Sep, [facility] [address] [id number] [place] [address] Aug, [facility] [address] [id number] [place] [address] Aug, [facility] [address] [id number] [place] [address] Aug, [facility] [address] [id number] [place] [address] Aug, [facility] [address] [id number] [place] [address] Aug, [facility] [address] [id number] [place] [address] Jul, [facility] [address] [id number] [place] [address] Jul, [facility] [address] [id number] [place] [address] Jun, [facility] [address] [id number] [place] [address] May, [facility] [address] [id number] [place] [address] May, [facility] [address] [id number] [place] [address] Apr, [facility] [address] [id number] [place] [address] March, [facility] [address] [id number] [place] [address] March, [facility] [address] [id number] [place] [address] March, [facility] [address] [id number] [place] [address] March, [facility] [address] [id number] [place] [address] Feb, [facility] [address] [id number] [place] [address] Feb, [facility] [address] [id number] [place] [address] Jan, [facility] [id number] [place] [address] Dec, [facility] [id number] [place] [address] Dec, [facility] [id number] [place] [address] Dec, [facility] [id number] [place] [address] Nov, [facility] [id number] [place] [address] Nov, [facility] [id number] [place] [address] Nov, [facility] [id number] [place] [address] Oct, [facility] [id number] [place] [address] Sep, [facility] [id number] [place] [address] Aug, [facility] [id number] [place] [address] Aug, [facility] [id number] [place] [address] May, [facility] [id number] [place] [address] Sep, [facility] [id number] [place] [address] Sep, IMMUNIZATIONS No Known Immunizations SOCIAL HISTORY Never Assessed REASON FOR VISIT PLAN OF CARE VITAL SIGNS Height 73 in 2014-01-24 Weight 271.6 lbs 2014-01-24 Heart Rate 88 bpm 2014-01-24 Blood pressure systolic 104 mmHg 2014-01-24 Blood pressure diastolic 78 mmHg 2014-01-24 MEDICATIONS Unknown Medications RESULTS No Results PROCEDURES No Known procedures INSTRUCTIONS MEDICATIONS ADMINISTERED No Known Medications MEDICAL (GENERAL) HISTORY Type Description Date Medical History bipolar Medical History adhd Medical History anxiety Medical History Intermittent explosive disorder Medical History Bipolar disorder Medical History Intellectual disability Surgical History No Surgical history information
--- OUTSIDE RECORDS SUMMARY | 2020-03-18 15:24 | XMS REPORT ---
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 Active 43768850 Problem Attention-deficit hyperactiv ity disorder, predominantly inattentive type F90.0 Active 47011087 Problem Intermittent explosive disorder F63.81 Active 13953439 Problem Bipolar disorder, currently in remission, most recent episode unspecified F31.70 Active 14922675 ALLERGIES No Information ENCOUNTERS Encounter Location Date Diagnosis [place] [address] [address] Oct, [address] [address] Sep, Intermittent explosive disorder F63.81 ; Bipolar disorder, currently in remission, most recent episode unspecified F31.70 ; Attention-deficit hyperactivity disorder, predominantly inattentive type F90.0 ; Moderate intellectual disability F71 ; Encounter to establish care Z76.89 and Abrasion, left lower leg, sequela S80.812S [place] [address] [address] 15 Sep, [address] [address] Sep, Annual physical exam Z00.00 ; Abrasion o f left lower leg, initial encounter S80.812A ; Cellulitis of left lower leg L03.116 ; Attention deficit hyperactivity disorder F90.9 ; Intermittent explosive disorder F63.81 and Intellectual disability F79 [place] [address] [address] Jul, Bipolar disorder F31.9 [place] [address] [address] Jul, Acute gastroenteritis K52.9 ; Intellectu al disability F79 and Bipolar disorder F31.9 [place] [address] [address] Jun, [place] [address] [address] Jun, Bipolar disorder F31.9 [place] [address] [address] May, Bipolar disorder F31.9 ; Intellectual di sability F79 and Attention- deficit hyperactivity disorder, predominantly inattentive type F90.0 [place] [address] [address] May, [place] [address] [address] May, Bipolar disorder F31.9 [place] [address] [address] May, Bipolar disorder F31.9 ; Attention-defic it hyperactivity disorder, predominantly inattentive type F90.0 and Moderate intellectual disability F71 [place] [address] [address] Apr, Bipolar disorder F31.9 [place] [address] [address] Apr, Bipolar disorder F31.9 and High risk med ication use Z79.899 [place] [address] [address] March, Bipolar disorder F31.9 and High risk med ication use Z79.899 [place] [address] [address] March, Bipolar disorder F31.9 [facility] [address] [id number] [place] [address] March, Caries K02.9 [place] [address] [address] March, Bipolar disorder F31.9 [facility] [address] [address] March, Bipolar disorder F31.9 [facility] [address] [address] Feb, Bipolar disorder F31.9 [facility] [address] [address] Feb, Bipolar disorder F31.9 ; Attention-defic it hyperactivity disorder, predominantly inattentive type F90.0 and Moderate intellectual disability F71 [facility] [address] [address] Jan, Bipolar disorder F31.9 [facility] [address] [address] Jan, Bipolar disorder F31.9 [facility] [address] [address] Jan, Dental examination Z01.20 ; 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 status requiring routine preventive dental care K08.9 and Caries K02.9 [place] [address] [address] Jan, [facility] [address] [address] Jan, Bipolar disorder F31.9 ; Moderate intell ectual disability F71 and Attention-deficit hyperactivity disorder, predominantly inattentive type F90.0 [place] [address] [address] Dec, Bipolar disorder, currently in remission , most recent episode unspecified F31.70 [place] [address] [address] Dec, Bipolar disorder, currently in remission , most recent episode unspecified F31.70 [facility] [address] [address] Dec, Bipolar disorder, currently in remission , most recent episode unspecified F31.70 [facility] [address] [place] [id number] [place] [address] Dec, [facility] [address] [address] Dec, Bipolar disorder, currently in remission , most recent episode unspecified F31.70 [facility] [address] [address] Nov, Bipolar disorder, currently in remission , most recent episode unspecified F31.70 [facility] [address] [address] Nov, [place] [address] [address] Nov, [facility] [address] [address] Nov, Bipolar disorder, currently in remission , most recent episode unspecified F31.70 [facility] [address] [place] [address] [place] [address] Nov, Bipolar disorder, currently in remission , most recent episode unspecified F31.70 [place] [address] [address] Oct, High risk medication use Z79.899 ; Bipol ar disorder F31.9 ; Moderate intellectual disability F71 and Attention-deficit hyperactivity disorder, predominantly inattentive type F90.0 [facility] [address] [place] [address] [place] [address] Oct, [facility] [address] [address] Sep, Bipolar disorder, currently in remission , most recent episode unspecified F31.70 [facility] [address] [facility] [place] [address] Sep, 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 status requiring routine preventive dental care K08.9 and Arrested dental caries K02.3 [facility] [address] [place] [address] [place] [address] Sep, Bipolar disorder, currently in remission , most recent episode unspecified F31.70 ; Moderate intellectual disability F71 and Attention-deficit hyperactivity disorder, predominantly inattentive type F90.0 [facility] [address] [address] Sep, Bipolar disorder, currently in remission , most recent episode unspecified F31.70 [facility] [address] [address] Aug, Bipolar disorder, currently in remission , most recent episode unspecified F31.70 [facility] [address] [address] Jul, Bipolar disorder, currently in remission , most recent episode unspecified F31.70 [facility] [address] [address] Jul, Bipolar disorder, currently in remission , most recent episode unspecified F31.70 [facility] [address] [address] Jun, [facility] [address] [address] Jun, Bipolar disorder, currently in remission , most recent episode unspecified F31.70 [facility] [address] [place] [id number] [place] [id number] Jun, Dental examination Z01.20 and Dental car ies K02.9 [facility] [address] [place] [address] [place] [address] May, Bipolar disorder, currently in remission , most recent episode unspecified F31.70 [facility] [address] [address] May, Bipolar disorder, currently in remission , most recent episode unspecified F31.70 [facility] [address] [address] May, Bipolar disorder, currently in remission , most recent episode unspecified F31.70 ; Moderate intellectual disability F71 and Attention-deficit hyperactivity disorder, predominantly inattentive type F90.0 [facility] [address] [address] Apr, Bipolar disorder, unspecified F31.9 [facility] [address] [address] Apr, [facility] [address] [address] Apr, [facility] [address] [address] Apr, [facility] [address] [address] March, [facility] [address] [address] March, Bipolar disorder, currently in remission , most recent episode unspecified F31.70 ; Moderate intellectual disability F71 and Attention-deficit hyperactivity disorder, predominantly inattentive type F90.0 [facility] [address] [address] Feb, [facility] [address] [id number] Feb, Dental examination Z01.20 [facility] [address] [address] Jan, [facility] [address] [address] Jan, [facility] [address] [address] Dec, [facility] [address] [address] Nov, [facility] [address] [id number] Nov, Encounter for dental exam and cleaning w /o abnormal findings Z01.20 [facility] [address] [id number] Nov, Dental examination Z01.20 [facility] [address] [place] [address] Oct, [facility] [address] [address] Oct, Bipolar disorder, currently in remission , most recent episode unspecified F31.70 ; Moderate intellectual disability F71 and Attention-deficit hyperactivity disorder, predominantly inattentive type F90.0 [facility] [address] [address] Sep, [facility] [address] [address] Sep, [facility] [address] [address] Aug, [facility] [address] [address] Aug, Attention-deficit hyperactivity disorder , predominantly inattentive type F90.0 ; Moderate intellectual disability F71 and Bipolar disorder F31.9 [facility] [address] [place] [id number] [place] [id number] Jul, Dental examination Z01.20 and Dental car ies K02.9 [facility] [address] [address] Jul, [facility] [address] [address] Jun, Bipolar disorder F31.9 ; Attention-defic it hyperactivity disorder, predominantly inattentive type F90.0 and Moderate intellectual disability F71 [facility] [address] [address] Jun, [facility] [address] [address] May, [facility] [address] [address] Apr, [facility] [address] [address] March, Intermittent explosive disorder F63.81 ; Attention deficit hyperactivity disorder F90.9 [address] F31.9 [facility] [address] [address] Feb, [facility] [address] [address] Jan, [facility] [address] [address] Dec, Encounter for immunization Z23 [facility] [address] [address] Dec, Intermittent explosive disorder F63.81 ; Attention deficit hyperactivity disorder F90.9 and Bipolar disorder, currently in remission, most recent episode unspecified F31.70 [facility] [address] [address] Nov, [facility] [address] [address] Oct, [facility] [address] [address] Oct, [facility] [address] [place] [address] [place] [id number] Oct, Dental examination Z01.20 [facility] [address] [address] Sep, [facility] [address] [address] Sep, [facility] [address] [address] Sep, Intermittent explosive disorder F63.81 ; Bipolar disorder F31.9 and Attention deficit hyperactivity disorder F90.9 [facility] [address] [address] Aug, [facility] [address] [address] Aug, [facility] [address] [address] Aug, [facility] [address] [id number] [place] [address] 14 Aug, 2016 Attention deficit hyperactivity disorder F90.9 [facility] [address] [place] [id number] [place] [address] [address], [address] [facility] [address] [id number] [place] [address] Jun, [facility] [address] [place] [id number] [place] [address] May, [facility] [address] [id number] [place] [address] Apr, [facility] [address] [place] [id number] [place] [address] Apr, Bipolar disorder F31.9 ; Attention defic it hyperactivity disorder F90.9 and Intermittent explosive disorder F63.81 [facility] [address] [place] [id number] [place] [address] March, [facility] [address] [place] [id number] [place] [address] Feb, [facility] [address] [place] [id number] [place] [address] Feb, [facility] [address] [place] [id number] [place] [address] Jan, [facility] [address] [place] [id number] [place] [address] Jan, [facility] [address] [place] [id number] [place] [address] Dec, [facility] [address] [id number] [place] [address] Nov, [facility] [address] [place] [id number] [place] [address] Nov, [facility] [address] [id number] [place] [address] Nov, Attention deficit hyperactivity disorder F90.9 ; Intermittent explosive disorder F63.81 and Bipolar disorder F31.9 [facility] [address] [address] Oct, [facility] [address] [address] Oct, [facility] [address] [address] Sep, [facility] [address] [address] Aug, [facility] [address] [address] Jul, [facility] [address] [address] Jul, 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 [address] [address] Jul, [facility] [address] [address] Jun, [facility] [address] [address] May, [facility] [address] [address] Apr, 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 [address] [address] Apr, [facility] [address] [address] March, [facility] [address] [id number] [place] [address] March, [facility] [address] [id number] [place] [address] March, [facility] [address] [id number] [place] [address] March, [facility] [address] [id number] [place] [address] Feb, [facility] [address] [id number] [place] [address] Feb, [facility] [address] [id number] [place] [address] Jan, [facility] [address] [id number] [place] [address] Jan, [facility] [address] [id number] [place] [address] Jan, [facility] [address] [id number] [place] [address] Jan, [facility] [address] [id number] [place] [address] Jan, [facility] [address] [id number] [place] [address] Dec, [facility] [address] [id number] [place] [address] Dec, [facility] [address] [id number] [place] [address] Nov, [facility] [address] [id number] [place] [address] Nov, [facility] [address] [id number] [place] [address] Nov, [facility] [address] [id number] [place] [address] Oct, [facility] [address] [id number] [place] [address] Oct, [facility] [address] [facility] [id number] [place] [address] Oct, [facility] [address] [id number] [place] [address] Oct, [facility] [address] [id number] [place] [address] Oct, [facility] [address] [id number] [place] [address] Oct, [facility] [address] [id number] [place] [address] Sep, [facility] [address] [id number] [place] [address] Sep, [facility] [address] [id number] [place] [address] Sep, [facility] [address] [id number] [place] [address] Aug, [facility] [address] [id number] [place] [address] Aug, [facility] [address] [id number] [place] [address] Jul, [facility] [address] [id number] [place] [address] Jul, [facility] [address] [id number] [place] [address] Jun, [facility] [address] [id number] [place] [address] Jun, [facility] [address] [id number] [place] [address] Jun, [facility] [address] [id number] [place] [address] Jun, [facility] [address] [id number] [place] [address] May, [facility] [address] [facility] [id number] [facility] [place] [address] May, [facility] [address] [facility] [id number] [place] [address] May, [facility] [address] [facility] [id number] [place] [address] Apr, [facility] [address] [id number] [place] [address] Apr, [facility] [address] [facility] [id number] [place] [address] Apr, [facility] [address] [facility] [id number] [place] [address] Apr, [facility] [address] [id number] [place] [address] March, [facility] [address] [id number] [place] [address] March, [facility] [address] [id number] [place] [address] March, [facility] [address] [id number] [place] [address] March, [facility] [address] [id number] [place] [address] Feb, [facility] [address] [id number] [place] [address] Feb, [facility] [address] [id number] [place] [address] Jan, [facility] [address] [facility] [id number] [place] [address] Jan, [facility] [address] [id number] [place] [address] Jan, [facility] [address] [id number] [place] [address] Jan, [facility] [address] [id number] [place] [address] Jan, [facility] [address] [facility] [id number] [place] [address] Jan, [facility] [address] [id number] [place] [address] Jan, [facility] [address] [id number] [place] [address] Jan, [facility] [address] [id number] [place] [address] Dec, [facility] [address] [facility] [id number] [place] [address] Dec, [facility] [address] [id number] [place] [address] Dec, [facility] [address] [id number] [place] [address] Dec, [facility] [address] [id number] [place] [address] Nov, [facility] [address] [id number] [place] [address] Nov, [facility] [address] [id number] [place] [address] Oct, [facility] [address] [id number] [place] [address] Oct, [facility] [address] [id number] [place] [address] Oct, [facility] [address] [id number] [place] [address] Oct, [facility] [address] [id number] [place] [address] Sep, [facility] [address] [id number] [place] [address] Sep, [facility] [address] [id number] [place] [address] Sep, [facility] [address] [id number] [place] [address] 07 Sep, 2013 [facility] [address] [id number] [place] [address] Aug, [facility] [address] [id number] [place] [address] Aug, [facility] [address] [id number] [place] [address] Aug, [facility] [address] [id number] [place] [address] Jul, [facility] [address] [id number] [place] [address] Jul, [facility] [address] [id number] [place] [address] Jun, [facility] [address] [id number] [place] [address] Jun, [facility] [address] [id number] [place] [address] May, [facility] [address] [id number] [place] [address] May, [facility] [address] [id number] [place] [address] Apr, [facility] [address] [id number] [place] [address] March, [facility] [address] [id number] [place] [address] March, [facility] [address] [id number] [place] [address] Feb, [facility] [id number] [place] [address] Jan, [facility] [address] [id number] [place] [address] Jan, [facility] [address] [id number] [place] [address] Dec, [facility] [address] [id number] [place] [address] Dec, [facility] [facility] [address] [id number] [place] [address] Nov, [facility] [address] [id number] [place] [address] Nov, [facility] [address] [id number] [place] [address] Nov, [facility] [address] [id number] [place] [address] Nov, [facility] [address] [id number] [place] [address] Nov, [facility] [address] [id number] [place] [address] Oct, [facility] [address] [id number] [place] [address] Oct, [facility] [address] [id number] [place] [address] Oct, [facility] [address] [id number] [place] [address] Oct, [facility] [address] [id number] [place] [address] Oct, [facility] [address] [id number] [place] [address] Oct, [facility] [address] [id number] [place] [address] 05 Oct, 2012 [facility] [address] [id number] [place] [address] Oct, [facility] [address] [id number] [place] [address] Sep, [facility] [address] [id number] [place] [address] Sep, [facility] [address] [id number] [place] [address] Sep, [facility] [address] [id number] [place] [address] Aug, [facility] [address] [id number] [place] [address] Aug, [facility] [address] [id number] [place] [address] Aug, [facility] [address] [id number] [place] [address] Aug, [facility] [address] [id number] [place] [address] Aug, [facility] [address] [id number] [place] [address] Jul, [facility] [address] [id number] [place] [address] Jul, [facility] [address] [id number] [place] [address] Jun, [facility] [address] [id number] [place] [address] May, [facility] [address] [id number] [place] [address] May, [facility] [address] [id number] [place] [address] Apr, [facility] [address] [id number] [place] [address] March, [facility] [address] [id number] [place] [address] March, [facility] [address] [id number] [place] [address] March, [facility] [address] [id number] [place] [address] March, [facility] [address] [id number] [place] [address] Feb, [facility] [id number] [place] [address] Feb, [facility] [id number] [place] [address] Jan, [facility] [id number] [place] [address] Dec, [facility] [id number] [place] [address] Dec, [facility] [id number] [place] [address] Dec, [facility] [id number] [place] [address] Nov, [facility] [address] [address] Nov, [facility] [id number] [place] [address] Nov, [facility] [id number] [place] [address] Oct, [facility] [id number] [place] [address] Sep, [facility] [address] [address] Aug, [facility] [id number] [place] [address] Aug, [facility] [id number] [place] [address] May, [facility] [id number] [place] [address] Sep, [facility] [address] [address] Sep, IMMUNIZATIONS No Known Immunizations SOCIAL HISTORY [...]
--- OUTSIDE RECORDS SUMMARY | 2020-03-18 15:24 | XMS REPORT ---
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 Active [id number] Problem Attention-deficit hyperactiv ity disorder, predominantly inattentive type F90.0 Active 99739566 Problem Intermittent explosive disorder F63.81 Active 60472355 Problem Bipolar disorder, currently in remission, most recent episode unspecified F31.70 Active [id number] ALLERGIES No Information ENCOUNTERS Encounter Location Date Diagnosis [place] [address] [address] Oct, [address] [address] Sep, Intermittent explosive disorder F63.81 ; Bipolar disorder, currently in remission, most recent episode unspecified F31.70 ; Attention-deficit hyperactivity disorder, predominantly inattentive type F90.0 ; Moderate intellectual disability F71 ; Encounter to establish care Z76.89 and Abrasion, left lower leg, sequela S80.812S [place] [address] [address] 15 Sep, [address] [address] Sep, Annual physical exam Z00.00 ; Abrasion o f left lower leg, initial encounter S80.812A ; Cellulitis of left lower leg L03.116 ; Attention deficit hyperactivity disorder F90.9 ; Intermittent explosive disorder F63.81 and Intellectual disability F79 [place] [address] [address] Jul, Bipolar disorder F31.9 [place] [address] [address] Jul, Acute gastroenteritis K52.9 ; Intellectu al disability F79 and Bipolar disorder F31.9 [place] [address] [address] Jun, [place] [address] [address] Jun, Bipolar disorder F31.9 [place] [address] [address] May, Bipolar disorder F31.9 ; Intellectual di sability F79 and Attention- deficit hyperactivity disorder, predominantly inattentive type F90.0 [place] [address] [address] May, [place] [address] [address] May, Bipolar disorder F31.9 [place] [address] [address] May, Bipolar disorder F31.9 ; Attention-defic it hyperactivity disorder, predominantly inattentive type F90.0 and Moderate intellectual disability F71 [place] [address] [address] Apr, Bipolar disorder F31.9 [place] [address] [address] Apr, Bipolar disorder F31.9 and High risk med ication use Z79.899 [place] [address] [address] March, Bipolar disorder F31.9 and High risk med ication use Z79.899 [place] [address] [address] March, Bipolar disorder F31.9 [facility] [address] [id number] [place] [address] March, Caries K02.9 [place] [address] [address] March, Bipolar disorder F31.9 [facility] [address] [address] March, Bipolar disorder F31.9 [facility] [address] [address] Feb, Bipolar disorder F31.9 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 [address] [address] Jan, Bipolar disorder F31.9 [facility] [address] [address] Jan, Bipolar disorder F31.9 [facility] [address] [address] Jan, Dental examination Z01.20 ; 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 status requiring routine preventive dental care K08.9 and Caries K02.9 [place] [address] [address] Jan, [facility] [address] [address] Jan, Bipolar disorder F31.9 ; Moderate intell ectual disability F71 and Attention-deficit hyperactivity disorder, predominantly inattentive type F90.0 [place] [address] [address] Dec, Bipolar disorder, currently in remission , most recent episode unspecified F31.70 [place] [address] [address] Dec, Bipolar disorder, currently in remission , most recent episode unspecified F31.70 [facility] [address] [address] Dec, Bipolar disorder, currently in remission , most recent episode unspecified F31.70 [facility] [address] [place] [id number] [place] [address] Dec, [facility] [address] [address] Dec, Bipolar disorder, currently in remission , most recent episode unspecified F31.70 [facility] [address] [address] Nov, Bipolar disorder, currently in remission , most recent episode unspecified F31.70 [facility] [address] [address] Nov, [place] [address] [address] Nov, [facility] [address] [address] Nov, Bipolar disorder, currently in remission , most recent episode unspecified F31.70 [facility] [address] [place] [id number] [place] [address] Nov, Bipolar disorder, currently in remission , most recent episode unspecified F31.70 [place] [address] [address] Oct, High risk medication use Z79.899 ; Bipol ar disorder F31.9 ; Moderate intellectual disability F71 and Attention-deficit hyperactivity disorder, predominantly inattentive type F90.0 [facility] [address] [place] [id number] [place] [address] Oct, [facility] [address] [address] Sep, Bipolar disorder, currently in remission , most recent episode unspecified F31.70 [facility] [address] [id number] [place] [id number] Sep, 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 status requiring routine preventive dental care K08.9 and Arrested dental caries K02.3 [facility] [address] [place] [id number] [place] [address] Sep, Bipolar disorder, currently in remission , most recent episode unspecified F31.70 ; Moderate intellectual disability F71 and Attention-deficit hyperactivity disorder, predominantly inattentive type F90.0 [facility] [address] [address] Sep, Bipolar disorder, currently in remission , most recent episode unspecified F31.70 [facility] [address] [address] Aug, Bipolar disorder, currently in remission , most recent episode unspecified F31.70 [facility] [address] [address] Jul, Bipolar disorder, currently in remission , most recent episode unspecified F31.70 [facility] [address] [address] Jul, Bipolar disorder, currently in remission , most recent episode unspecified F31.70 [facility] [address] [address] Jun, [facility] [address] [address] Jun, Bipolar disorder, currently in remission , most recent episode unspecified F31.70 [facility] [address] [place] [id number] [place] [id number] Jun, Dental examination Z01.20 and Dental car ies K02.9 [facility] [address] [place] [id number] [place] [address] May, Bipolar disorder, currently in remission , most recent episode unspecified F31.70 [facility] [address] [address] May, Bipolar disorder, currently in remission , most recent episode unspecified F31.70 [facility] [address] [address] May, Bipolar disorder, currently in remission , most recent episode unspecified F31.70 ; Moderate intellectual disability F71 and Attention-deficit hyperactivity disorder, predominantly inattentive type F90.0 [facility] [address] [address] Apr, Bipolar disorder, unspecified F31.9 [facility] [address] [address] Apr, [facility] [address] [address] Apr, [facility] [address] [address] Apr, [facility] [address] [address] March, [facility] [address] [address] March, Bipolar disorder, currently in remission , most recent episode unspecified F31.70 ; Moderate intellectual disability F71 and Attention-deficit hyperactivity disorder, predominantly inattentive type F90.0 [facility] [address] [address] Feb, [facility] [address] [id number] Feb, Dental examination Z01.20 [facility] [address] [address] Jan, [facility] [address] [address] Jan, [facility] [address] [address] Dec, [facility] [address] [address] Nov, [facility] [address] [id number] Nov, Encounter for dental exam and cleaning w /o abnormal findings Z01.20 [facility] [address] [id number] Nov, Dental examination Z01.20 [facility] [address] [place] [address] Oct, [facility] [address] [address] Oct, Bipolar disorder, currently in remission , most recent episode unspecified F31.70 ; Moderate intellectual disability F71 and Attention-deficit hyperactivity disorder, predominantly inattentive type F90.0 [facility] [address] [address] Sep, [facility] [address] [address] Sep, [facility] [address] [address] Aug, [facility] [address] [address] Aug, Attention-deficit hyperactivity disorder , predominantly inattentive type F90.0 ; Moderate intellectual disability F71 and Bipolar disorder F31.9 [facility] [address] [place] [id number] [place] [id number] Jul, Dental examination Z01.20 and Dental car ies K02.9 [facility] [address] [address] Jul, [facility] [address] [address] Jun, Bipolar disorder F31.9 ; Attention-defic it hyperactivity disorder, predominantly inattentive type F90.0 and Moderate intellectual disability F71 [facility] [address] [address] Jun, [facility] [address] [address] May, [facility] [address] [address] Apr, [facility] [address] [address] March, Intermittent explosive disorder F63.81 ; Attention deficit hyperactivity disorder F90.9 and B[address] disorder F31.9 [facility] [address] [address] Feb, [facility] [address] [address] Jan, [facility] [address] [address] Dec, Encounter for immunization Z23 [facility] [address] [address] Dec, Intermittent explosive disorder F63.81 ; Attention deficit hyperactivity disorder F90.9 and Bipolar disorder, currently in remission, most recent episode unspecified F31.70 [facility] [address] [address] Nov, [facility] [address] [address] Oct, [facility] [address] [address] Oct, [facility] [address] [place] [id number] [place] [id number] Oct, Dental examination Z01.20 [facility] [address] [address] Sep, [facility] [address] [address] Sep, [facility] [address] [address] Sep, Intermittent explosive disorder F63.81 ; Bipolar disorder F31.9 and Attention deficit hyperactivity disorder F90.9 [facility] [address] [address] Aug, [facility] [address] [address] Aug, [facility] [address] [address] Aug, [facility] [address] [id number] [place] [address] 14 Aug, 2016 Attention deficit hyperactivity disorder F90.9 [facility] [address] [place] [id number] [place] [address] [address], [address] [facility] [address] [id number] [place] [address] Jun, [facility] [address] [place] [id number] [place] [address] May, [facility] [address] [id number] [place] [address] Apr, [facility] [address] [place] [id number] [place] [address] Apr, Bipolar disorder F31.9 ; Attention defic it hyperactivity disorder F90.9 and Intermittent explosive disorder F63.81 [facility] [address] [place] [id number] [place] [address] March, [facility] [address] [place] [id number] [place] [address] Feb, [facility] [address] [place] [id number] [place] [address] Feb, [facility] [address] [place] [id number] [place] [address] Jan, [facility] [address] [place] [id number] [place] [address] Jan, [facility] [address] [place] [id number] [place] [address] Dec, [facility] [address] [id number] [place] [address] Nov, [facility] [address] [place] [id number] [place] [address] Nov, [facility] [address] [id number] [place] [address] Nov, Attention deficit hyperactivity disorder F90.9 ; Intermittent explosive disorder F63.81 and B[address] disorder F31.9 [facility] [address] [address] Oct, [facility] [address] [address] Oct, [facility] [address] [address] Sep, [facility] [address] [address] Aug, [facility] [address] [address] Jul, [facility] [address] [address] Jul, 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 [address] [address] Jul, [facility] [address] [address] Jun, [facility] [address] [address] May, [facility] [address] [address] Apr, 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 [address] [address] Apr, [facility] [address] [address] March, [facility] [address] [id number] [place] [address] March, [facility] [address] [id number] [place] [address] March, [facility] [address] [id number] [place] [address] March, [facility] [address] [id number] [place] [address] Feb, [facility] [address] [id number] [place] [address] Feb, [facility] [address] [id number] [place] [address] Jan, [facility] [address] [id number] [place] [address] Jan, [facility] [address] [id number] [place] [address] Jan, [facility] [address] [id number] [place] [address] Jan, [facility] [address] [id number] [place] [address] Jan, [facility] [address] [id number] [place] [address] Dec, [facility] [address] [id number] [place] [address] Dec, [facility] [address] [id number] [place] [address] Nov, [facility] [address] [id number] [place] [address] Nov, [facility] [address] [id number] [place] [address] Nov, [facility] [address] [id number] [place] [address] Oct, [facility] [address] [id number] [place] [address] Oct, [facility] [address] [facility] [id number] [place] [address] Oct, [facility] [address] [id number] [place] [address] Oct, [facility] [address] [id number] [place] [address] Oct, [facility] [address] [id number] [place] [address] Oct, [facility] [address] [id number] [place] [address] Sep, [facility] [address] [id number] [place] [address] Sep, [facility] [address] [id number] [place] [address] Sep, [facility] [address] [id number] [place] [address] Aug, [facility] [address] [id number] [place] [address] Aug, [facility] [address] [id number] [place] [address] Jul, [facility] [address] [id number] [place] [address] Jul, [facility] [address] [id number] [place] [address] Jun, [facility] [address] [id number] [place] [address] Jun, [facility] [address] [id number] [place] [address] Jun, [facility] [address] [id number] [place] [address] Jun, [facility] [address] [id number] [place] [address] May, [facility] [address] [facility] [id number] [place] [address] May, [facility] [address] [facility] [id number] [place] [address] May, [facility] [address] [facility] [id number] [place] [address] Apr, [facility] [address] [id number] [place] [address] Apr, [facility] [address] [facility] [id number] [place] [address] Apr, [facility] [address] [facility] [id number] [place] [address] Apr, [facility] [address] [id number] [place] [address] March, [facility] [address] [id number] [place] [address] March, [facility] [address] [id number] [place] [address] March, [facility] [address] [id number] [place] [address] March, [facility] [address] [id number] [place] [address] Feb, [facility] [address] [id number] [place] [address] Feb, [facility] [address] [id number] [place] [address] Jan, [facility] [address] [facility] [id number] [place] [address] Jan, [facility] [address] [id number] [place] [address] Jan, [facility] [address] [id number] [place] [address] Jan, [facility] [address] [id number] [place] [address] Jan, [facility] [address] [facility] [id number] [place] [address] Jan, [facility] [address] [id number] [place] [address] Jan, [facility] [address] [id number] [place] [address] Jan, [facility] [address] [id number] [place] [address] Dec, [facility] [address] [facility] [id number] [place] [address] Dec, [facility] [address] [id number] [place] [address] Dec, [facility] [address] [id number] [place] [address] Dec, [facility] [address] [id number] [place] [address] Nov, [facility] [address] [id number] [place] [address] Nov, [facility] [address] [id number] [place] [address] Oct, [facility] [address] [id number] [place] [address] Oct, [facility] [address] [id number] [place] [address] Oct, [facility] [address] [id number] [place] [address] Oct, [facility] [address] [id number] [place] [address] Sep, [facility] [address] [id number] [place] [address] Sep, [facility] [address] [id number] [place] [address] Sep, [facility] [address] [id number] [place] [address] 07 Sep, 2013 [facility] [address] [id number] [place] [address] Aug, [facility] [address] [id number] [place] [address] Aug, [facility] [address] [id number] [place] [address] Aug, [facility] [address] [id number] [place] [address] Jul, [facility] [address] [id number] [place] [address] Jul, [facility] [address] [id number] [place] [address] Jun, [facility] [address] [id number] [place] [address] Jun, [facility] [address] [id number] [place] [address] May, [facility] [address] [id number] [place] [address] May, [facility] [address] [id number] [place] [address] Apr, [facility] [address] [id number] [place] [address] March, [facility] [address] [id number] [place] [address] March, [facility] [address] [id number] [place] [address] Feb, [facility] [id number] [place] [address] Jan, [facility] [address] [id number] [place] [address] Jan, [facility] [address] [id number] [place] [address] Dec, [facility] [address] [id number] [place] [address] Dec, [facility] [address] [id number] [place] [address] Nov, [facility] [address] [id number] [place] [address] Nov, [facility] [address] [id number] [place] [address] Nov, [facility] [address] [id number] [place] [address] Nov, [facility] [address] [id number] [place] [address] Nov, [facility] [address] [id number] [place] [address] Oct, [facility] [address] [id number] [place] [address] Oct, [facility] [address] [id number] [place] [address] Oct, [facility] [address] [id number] [place] [address] Oct, [facility] [address] [id number] [place] [address] Oct, [facility] [address] [id number] [place] [address] Oct, [facility] [address] [id number] [place] [address] 05 Oct, 2012 [facility] [address] [id number] [place] [address] Oct, [facility] [address] [id number] [place] [address] Sep, [facility] [address] [id number] [place] [address] Sep, [facility] [address] [id number] [place] [address] Sep, [facility] [address] [id number] [place] [address] Aug, [facility] [address] [id number] [place] [address] Aug, [facility] [address] [id number] [place] [address] Aug, [facility] [address] [id number] [place] [address] Aug, [facility] [address] [id number] [place] [address] Aug, [facility] [address] [id number] [place] [address] Jul, [facility] [address] [id number] [place] [address] Jul, [facility] [address] [id number] [place] [address] Jun, [facility] [address] [id number] [place] [address] May, [facility] [address] [id number] [place] [address] May, [facility] [address] [id number] [place] [address] Apr, [facility] [address] [id number] [place] [address] March, [facility] [address] [id number] [place] [address] March, [facility] [address] [id number] [place] [address] March, [facility] [address] [id number] [place] [address] March, [facility] [address] [id number] [place] [address] Feb, [facility] [address] [id number] [place] [address] Feb, [facility] [id number] [place] [address] Jan, [facility] [id number] [place] [address] Dec, [facility] [id number] [place] [address] Dec, [facility] [id number] [place] [address] Dec, [facility] [id number] [place] [address] Nov, [facility] [id number] [place] [address] Nov, [facility] [id number] [place] [address] Nov, [facility] [id number] [place] [address] Oct, [facility] [id number] [place] [address] Sep, [facility] [id number] [place] [address] Aug, [facility] [id number] [place] [address] Aug, [facility] [id number] [place] [address] May, [facility] [id number] [place] [address] Sep, [facility] [id number] [place] [address] Sep, IMMUNIZATIONS No Known Immunizations SOCIAL HISTORY Never Assessed REASON FOR VISIT PLAN OF CARE VITAL SIGNS Height 73 in 2014-02-20 Weight 272 lbs 2014-02-20 Temperature 98 degrees Fahrenheit 2014-02-20 Heart Rate 78 bpm 2014-02-20 Respiratory Rate 24 2014-02-20 Blood pressure systolic 106 mmHg 2014-02-20 Blood pressure diastolic 84 mmHg 2014-02-20 MEDICATIONS Unknown Medications RESULTS No Results PROCEDURES No Known procedures INSTRUCTIONS MEDICATIONS ADMINISTERED No Known Medications MEDICAL (GENERAL) HISTORY Type Description Date Medical History bipolar Medical History adhd Medical History anxiety Medical History Intermittent explosive disorder Medical History Bipolar disorder Medical History Intellectual disability Surgical History No Surgical history information
--- OUTSIDE RECORDS SUMMARY | 2020-03-18 15:24 | XMS REPORT ---
Author Author Jose Cruz Mercer Doctor Organization 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 Active 91014077 Problem Attention-deficit hyperactiv ity disorder, predominantly inattentive type F90.0 Active 47118872 Problem Intermittent explosive disorder F63.81 Active 80159345 Problem Bipolar disorder, currently in remission, most recent episode unspecified F31.70 Active [id number] ALLERGIES No Information ENCOUNTERS Encounter Location Date Diagnosis [place] [address] [address] Oct, [address] [address] Sep, Intermittent explosive disorder F63.81 ; Bipolar disorder, currently in remission, most recent episode unspecified F31.70 ; Attention-deficit hyperactivity disorder, predominantly inattentive type F90.0 ; Moderate intellectual disability F71 ; Encounter to establish care Z76.89 and Abrasion, left lower leg, sequela S80.812S [place] [address] [address] 15 Sep, [address] [address] Sep, Annual physical exam Z00.00 ; Abrasion o f left lower leg, initial encounter S80.812A ; Cellulitis of left lower leg L03.116 ; Attention deficit hyperactivity disorder F90.9 ; Intermittent explosive disorder F63.81 and Intellectual disability F79 [place] [address] [address] Jul, Bipolar disorder F31.9 [place] [address] [address] Jul, Acute gastroenteritis K52.9 ; Intellectu al disability F79 and Bipolar disorder F31.9 [place] [address] [address] Jun, [place] [address] [address] Jun, Bipolar disorder F31.9 [place] [address] [address] May, Bipolar disorder F31.9 ; Intellectual di sability F79 and Attention- deficit hyperactivity disorder, predominantly inattentive type F90.0 [place] [address] [address] May, [place] [address] [address] May, Bipolar disorder F31.9 [place] [address] [address] May, Bipolar disorder F31.9 ; Attention-defic it hyperactivity disorder, predominantly inattentive type F90.0 and Moderate intellectual disability F71 [place] [address] [address] Apr, Bipolar disorder F31.9 [place] [address] [address] Apr, Bipolar disorder F31.9 and High risk med ication use Z79.899 [place] [address] [address] March, Bipolar disorder F31.9 and High risk med ication use Z79.899 [place] [address] [address] March, Bipolar disorder F31.9 [facility] [address] [id number] [place] [address] March, Caries K02.9 [place] [address] [address] March, Bipolar disorder F31.9 [facility] [address] [address] March, Bipolar disorder F31.9 [facility] [address] [address] Feb, Bipolar disorder F31.9 [facility] [address] [address] Feb, Bipolar disorder F31.9 ; Attention-defic it hyperactivity disorder, predominantly inattentive type F90.0 and Moderate intellectual disability F71 [facility] [address] [address] Jan, Bipolar disorder F31.9 [facility] [address] [address] Jan, Bipolar disorder F31.9 [facility] [address] [address] Jan, Dental examination Z01.20 ; 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 status requiring routine preventive dental care K08.9 and Caries K02.9 [place] [address] [address] Jan, [facility] [address] [address] Jan, Bipolar disorder F31.9 ; Moderate intell ectual disability F71 and Attention-deficit hyperactivity disorder, predominantly inattentive type F90.0 [place] [address] [address] Dec, Bipolar disorder, currently in remission , most recent episode unspecified F31.70 [place] [address] [address] Dec, Bipolar disorder, currently in remission , most recent episode unspecified F31.70 [facility] [address] [address] Dec, Bipolar disorder, currently in remission , most recent episode unspecified F31.70 [facility] [address] [place] [id number] [place] [address] Dec, [facility] [address] [address] Dec, Bipolar disorder, currently in remission , most recent episode unspecified F31.70 [facility] [address] [address] Nov, Bipolar disorder, currently in remission , most recent episode unspecified F31.70 [facility] [address] [address] Nov, [place] [address] [address] Nov, [facility] [address] [address] Nov, Bipolar disorder, currently in remission , most recent episode unspecified F31.70 [facility] [address] [place] [id number] [place] [address] Nov, Bipolar disorder, currently in remission , most recent episode unspecified F31.70 [place] [address] [address] Oct, High risk medication use Z79.899 ; Bipol ar disorder F31.9 ; Moderate intellectual disability F71 and Attention-deficit hyperactivity disorder, predominantly inattentive type F90.0 [facility] [address] [place] [id number] [place] [address] Oct, [facility] [address] [address] Sep, Bipolar disorder, currently in remission , most recent episode unspecified F31.70 [facility] [address] [id number] [place] [id number] Sep, 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 status requiring routine preventive dental care K08.9 and Arrested dental caries K02.3 [facility] [address] [place] [id number] [place] [address] Sep, Bipolar disorder, currently in remission , most recent episode unspecified F31.70 ; Moderate intellectual disability F71 and Attention-deficit hyperactivity disorder, predominantly inattentive type F90.0 [facility] [address] [address] Sep, Bipolar disorder, currently in remission , most recent episode unspecified F31.70 [facility] [address] [address] Aug, Bipolar disorder, currently in remission , most recent episode unspecified F31.70 [facility] [address] [address] Jul, Bipolar disorder, currently in remission , most recent episode unspecified F31.70 [facility] [address] [address] Jul, Bipolar disorder, currently in remission , most recent episode unspecified F31.70 [facility] [address] [address] Jun, [facility] [address] [address] Jun, Bipolar disorder, currently in remission , most recent episode unspecified F31.70 [facility] [address] [place] [id number] [place] [id number] Jun, Dental examination Z01.20 and Dental car ies K02.9 [facility] [address] [place] [id number] [place] [address] May, Bipolar disorder, currently in remission , most recent episode unspecified F31.70 [facility] [address] [address] May, Bipolar disorder, currently in remission , most recent episode unspecified F31.70 [facility] [address] [address] May, Bipolar disorder, currently in remission , most recent episode unspecified F31.70 ; Moderate intellectual disability F71 and Attention-deficit hyperactivity disorder, predominantly inattentive type F90.0 [facility] [address] [address] Apr, Bipolar disorder, unspecified F31.9 [facility] [address] [address] Apr, [facility] [address] [address] Apr, [facility] [address] [address] Apr, [facility] [address] [address] March, [facility] [address] [address] March, Bipolar disorder, currently in remission , most recent episode unspecified F31.70 ; Moderate intellectual disability F71 and Attention-deficit hyperactivity disorder, predominantly inattentive type F90.0 [facility] [address] [address] Feb, [facility] [address] [id number] Feb, Dental examination Z01.20 [facility] [address] [address] Jan, [facility] [address] [address] Jan, [facility] [address] [address] Dec, [facility] [address] [address] Nov, [facility] [address] [id number] Nov, Encounter for dental exam and cleaning w /o abnormal findings Z01.20 [facility] [address] [id number] Nov, Dental examination Z01.20 [facility] [address] [place] [address] Oct, [facility] [address] [address] Oct, Bipolar disorder, currently in remission , most recent episode unspecified F31.70 ; Moderate intellectual disability F71 and Attention-deficit hyperactivity disorder, predominantly inattentive type F90.0 [facility] [address] [address] Sep, [facility] [address] [address] Sep, [facility] [address] [address] Aug, [facility] [address] [address] Aug, Attention-deficit hyperactivity disorder , predominantly inattentive type F90.0 ; Moderate intellectual disability F71 and Bipolar disorder F31.9 [facility] [address] [place] [id number] [place] [id number] Jul, Dental examination Z01.20 and Dental car ies K02.9 [facility] [address] [address] Jul, [facility] [address] [address] Jun, Bipolar disorder F31.9 ; Attention-defic it hyperactivity disorder, predominantly inattentive type F90.0 and Moderate intellectual disability F71 [facility] [address] [address] Jun, [facility] [address] [address] May, [facility] [address] [address] Apr, [facility] [address] [address] March, Intermittent explosive disorder F63.81 ; Attention deficit hyperactivity disorder F90.9 and Bipolar disorder F31.9 [facility] [address] [address] Feb, [facility] [address] [address] Jan, [facility] [address] [address] Dec, Encounter for immunization Z23 [facility] [address] [address] Dec, Intermittent explosive disorder F63.81 ; Attention deficit hyperactivity disorder F90.9 and Bipolar disorder, currently in remission, most recent episode unspecified F31.70 [facility] [address] [address] Nov, [facility] [address] [address] Oct, [facility] [address] [address] Oct, [facility] [address] [place] [id number] [place] [id number] Oct, Dental examination Z01.20 [facility] [address] [address] Sep, [facility] [address] [address] Sep, [facility] [address] [address] Sep, Intermittent explosive disorder F63.81 ; Bipolar disorder F31.9 and Attention deficit hyperactivity disorder F90.9 [facility] [address] [address] Aug, [facility] [address] [address] Aug, [facility] [address] [address] Aug, [facility] [address] [id number] [place] [address] 14 Aug, 2016 Attention deficit hyperactivity disorder F90.9 [facility] [address] [place] [id number] [place] [address] 16 Jul, 2016 [facility] [address] [id number] [place] [address] Jun, [facility] [address] [place] [id number] [place] [address] May, [facility] [address] [id number] [place] [address] Apr, [facility] [address] [place] [id number] [place] [address] Apr, Bipolar disorder F31.9 ; Attention defic it hyperactivity disorder F90.9 and Intermittent explosive disorder F63.81 [facility] [address] [place] [id number] [place] [address] March, [facility] [address] [place] [id number] [place] [address] Feb, [facility] [address] [place] [id number] [place] [address] Feb, [facility] [address] [place] [id number] [place] [address] Jan, [facility] [address] [place] [id number] [place] [address] Jan, [facility] [address] [place] [id number] [place] [address] Dec, [facility] [address] [id number] [place] [address] Nov, [facility] [address] [place] [id number] [place] [address] Nov, [facility] [address] [id number] [place] [address] Nov, Attention deficit hyperactivity disorder F90.9 ; Intermittent explosive disorder F63.81 and Bipolar disorder F31.9 [facility] [address] [address] Oct, [facility] [address] [address] Oct, [facility] [address] [address] Sep, [facility] [address] [address] Aug, [facility] [address] [address] Jul, [facility] [address] [address] Jul, [facility] [address] [address] Jul, Anxiety, generalized 300.02 ; Bipolar di sorder, unspecified 296.80 ; 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.00 ; 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 and Impulse control disorder, unspecified 312.30 [facility] [address] [address] Jul, [facility] [address] [address] Jun, [facility] [address] [address] May, [facility] [address] [address] Apr, [facility] [address] [address] Apr, Bipolar disorder, unspecified 296.80 ; G eneralized anxiety disorder 300.02 and 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.00 [facility] [address] [address] Apr, [facility] [address] [address] March, [facility] [address] [id number] [place] [address] March, [facility] [address] [id number] [place] [address] March, [facility] [address] [id number] [place] [address] March, [facility] [address] [id number] [place] [address] Feb, [facility] [address] [id number] [place] [address] Feb, [facility] [address] [id number] [place] [address] Jan, [facility] [address] [id number] [place] [address] Jan, [facility] [address] [id number] [place] [address] Jan, [facility] [address] [id number] [place] [address] Jan, [facility] [address] [id number] [place] [address] Jan, [facility] [address] [id number] [place] [address] Dec, [facility] [address] [id number] [place] [address] Dec, [facility] [address] [id number] [place] [address] Nov, [facility] [address] [id number] [place] [address] Nov, [facility] [address] [id number] [place] [address] Nov, [facility] [address] [id number] [place] [address] Oct, [facility] [address] [id number] [place] [address] Oct, [facility] [address] [facility] [id number] [place] [address] Oct, [facility] [address] [id number] [place] [address] Oct, [facility] [address] [id number] [place] [address] Oct, [facility] [address] [id number] [place] [address] Oct, [facility] [address] [id number] [place] [address] Sep, [facility] [address] [id number] [place] [address] Sep, [facility] [address] [id number] [place] [address] Sep, [facility] [address] [id number] [place] [address] Aug, [facility] [address] [id number] [place] [address] Aug, [facility] [address] [id number] [place] [address] Jul, [facility] [address] [id number] [place] [address] Jul, [facility] [address] [id number] [place] [address] Jun, [facility] [address] [id number] [place] [address] Jun, [facility] [address] [id number] [place] [address] Jun, [facility] [address] [id number] [place] [address] Jun, [facility] [address] [id number] [place] [address] May, [facility] [address] [facility] [id number] [facility] [place] [address] May, [facility] [address] [facility] [id number] [place] [address] May, [facility] [address] [facility] [id number] [place] [address] Apr, [facility] [address] [id number] [place] [address] Apr, [facility] [address] [facility] [id number] [place] [address] Apr, [facility] [address] [facility] [id number] [place] [address] Apr, [facility] [address] [id number] [place] [address] March, [facility] [address] [id number] [place] [address] March, [facility] [address] [id number] [place] [address] March, [facility] [address] [id number] [place] [address] March, [facility] [address] [id number] [place] [address] Feb, [facility] [address] [id number] [place] [address] Feb, [facility] [address] [id number] [place] [address] Jan, [facility] [address] [facility] [id number] [place] [address] Jan, [facility] [address] [id number] [place] [address] Jan, [facility] [address] [id number] [place] [address] Jan, [facility] [address] [id number] [place] [address] Jan, [facility] [address] [facility] [id number] [place] [address] Jan, [facility] [address] [id number] [place] [address] Jan, [facility] [address] [id number] [place] [address] Jan, [facility] [address] [id number] [place] [address] Dec, [facility] [address] [facility] [id number] [place] [address] Dec, [facility] [address] [id number] [place] [address] Dec, [facility] [address] [id number] [place] [address] Dec, [facility] [address] [id number] [place] [address] Nov, [facility] [address] [id number] [place] [address] Nov, [facility] [address] [id number] [place] [address] Oct, [facility] [address] [id number] [place] [address] Oct, [facility] [address] [id number] [place] [address] Oct, [facility] [address] [id number] [place] [address] Oct, [facility] [address] [id number] [place] [address] Sep, [facility] [address] [id number] [place] [address] Sep, [facility] [address] [id number] [place] [address] Sep, [facility] [address] [id number] [place] [address] 07 Sep, 2013 [facility] [address] [id number] [place] [address] Aug, [facility] [address] [id number] [place] [address] Aug, [facility] [address] [id number] [place] [address] Aug, [facility] [address] [id number] [place] [address] Jul, [facility] [address] [id number] [place] [address] Jul, [facility] [address] [id number] [place] [address] Jun, [facility] [address] [id number] [place] [address] Jun, [facility] [address] [id number] [place] [address] May, [facility] [address] [id number] [place] [address] May, [facility] [address] [id number] [place] [address] Apr, [facility] [address] [id number] [place] [address] March, [facility] [address] [id number] [place] [address] March, [facility] [address] [id number] [place] [address] Feb, [facility] [id number] [place] [address] Jan, [facility] [address] [id number] [place] [address] Jan, [facility] [address] [id number] [place] [address] Dec, [facility] [address] [id number] [place] [address] Dec, [facility] [address] [id number] [place] [address] Nov, [facility] [address] [id number] [place] [address] Nov, [facility] [address] [id number] [place] [address] Nov, [facility] [address] [id number] [place] [address] Nov, [facility] [address] [id number] [place] [address] Nov, [facility] [address] [id number] [place] [address] Oct, [facility] [address] [id number] [place] [address] Oct, [facility] [address] [id number] [place] [address] Oct, [facility] [address] [id number] [place] [address] Oct, [facility] [address] [id number] [place] [address] Oct, [facility] [address] [id number] [place] [address] Oct, [facility] [address] [id number] [place] [address] 05 Oct, 2012 [facility] [address] [id number] [place] [address] Oct, [facility] [address] [id number] [place] [address] Sep, [facility] [address] [id number] [place] [address] Sep, [facility] [address] [id number] [place] [address] Sep, [facility] [facility] [address] [id number] [place] [address] Aug, [facility] [address] [id number] [place] [address] Aug, [facility] [address] [id number] [place] [address] Aug, [facility] [address] [id number] [place] [address] Aug, [facility] [address] [id number] [place] [address] Aug, [facility] [address] [id number] [place] [address] Jul, [facility] [address] [id number] [place] [address] Jul, [facility] [address] [id number] [place] [address] Jun, [facility] [address] [id number] [place] [address] May, [facility] [address] [id number] [place] [address] May, [facility] [address] [id number] [place] [address] Apr, [facility] [address] [id number] [place] [address] March, [facility] [address] [id number] [place] [address] March, [facility] [address] [id number] [place] [address] March, [facility] [address] [id number] [place] [address] March, [facility] [address] [id number] [place] [address] Feb, [facility] [id number] [place] [address] Feb, [facility] [id number] [place] [address] Jan, [facility] [id number] [place] [address] Dec, [facility] [id number] [place] [address] Dec, [facility] [id number] [place] [address] Dec, [facility] [id number] [place] [address] Nov, [facility] [address] [address] Nov, [facility] [id number] [place] [address] Nov, [facility] [id number] [place] [address] Oct, [facility] [id number] [place] [address] Sep, [facility] [address] [address] Aug, [facility] [id number] [place] [address] Aug, [facility] [id number] [place] [address] May, [facility] [id number] [place] [address] Sep, [facility] [address] [address] Sep, IMMUNIZATIONS No Known Immunizations SOCIAL HISTORY [...]
--- OUTSIDE RECORDS SUMMARY | 2020-03-18 15:24 | XMS REPORT ---
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 Active 30333459 Problem Attention-deficit hyperactiv ity disorder, predominantly inattentive type F90.0 Active 98576287 Problem Intermittent explosive disorder F63.81 Active 07100270 Problem Bipolar disorder, currently in remission, most recent episode unspecified F31.70 Active [id number] ALLERGIES No Information ENCOUNTERS Encounter Location Date Diagnosis [place] [address] [address] Oct, [address] [address] Sep, Intermittent explosive disorder F63.81 ; Bipolar disorder, currently in remission, most recent episode unspecified F31.70 ; Attention-deficit hyperactivity disorder, predominantly inattentive type F90.0 ; Moderate intellectual disability F71 ; Encounter to establish care Z76.89 and Abrasion, left lower leg, sequela S80.812S [place] [address] [address] 15 Sep, [address] [address] Sep, Annual physical exam Z00.00 ; Abrasion o f left lower leg, initial encounter S80.812A ; Cellulitis of left lower leg L03.116 ; Attention deficit hyperactivity disorder F90.9 ; Intermittent explosive disorder F63.81 and Intellectual disability F79 [place] [address] [address] Jul, Bipolar disorder F31.9 [place] [address] [address] Jul, Acute gastroenteritis K52.9 ; Intellectu al disability F79 and Bipolar disorder F31.9 [place] [address] [address] Jun, [place] [address] [address] Jun, Bipolar disorder F31.9 [place] [address] [address] May, Bipolar disorder F31.9 ; Intellectual di sability F79 and Attention- deficit hyperactivity disorder, predominantly inattentive type F90.0 [place] [address] [address] May, [place] [address] [address] May, Bipolar disorder F31.9 [place] [address] [address] May, Bipolar disorder F31.9 ; Attention-defic it hyperactivity disorder, predominantly inattentive type F90.0 and Moderate intellectual disability F71 [place] [address] [address] Apr, Bipolar disorder F31.9 [place] [address] [address] Apr, Bipolar disorder F31.9 and High risk med ication use Z79.899 [place] [address] [address] March, Bipolar disorder F31.9 and High risk med ication use Z79.899 [place] [address] [address] March, Bipolar disorder F31.9 [facility] [id number] [place] [address] March, Caries K02.9 [place] [address] [address] March, Bipolar disorder F31.9 [facility] [address] [address] March, Bipolar disorder F31.9 [facility] [address] [address] Feb, Bipolar disorder F31.9 [facility] [address] [address] Feb, Bipolar disorder F31.9 ; Attention-defic it hyperactivity disorder, predominantly inattentive type F90.0 and Moderate intellectual disability F71 [facility] [address] [address] Jan, Bipolar disorder F31.9 [facility] [address] [address] Jan, Bipolar disorder F31.9 [facility] [address] [address] Jan, Dental examination Z01.20 ; 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 status requiring routine preventive dental care K08.9 and Caries K02.9 [place] [address] [address] Jan, [facility] [address] [address] Jan, Bipolar disorder F31.9 ; Moderate intell ectual disability F71 and Attention-deficit hyperactivity disorder, predominantly inattentive type F90.0 [place] [address] [address] Dec, Bipolar disorder, currently in remission , most recent episode unspecified F31.70 [place] [address] [address] Dec, Bipolar disorder, currently in remission , most recent episode unspecified F31.70 [facility] [address] [address] Dec, Bipolar disorder, currently in remission , most recent episode unspecified F31.70 [facility] [address] [place] [id number] [place] [address] Dec, [facility] [address] [address] Dec, Bipolar disorder, currently in remission , most recent episode unspecified F31.70 [facility] [address] [address] Nov, Bipolar disorder, currently in remission , most recent episode unspecified F31.70 [facility] [address] [address] Nov, [place] [address] [address] Nov, [facility] [address] [address] Nov, Bipolar disorder, currently in remission , most recent episode unspecified F31.70 [facility] [address] [place] [id number] [place] [address] Nov, Bipolar disorder, currently in remission , most recent episode unspecified F31.70 [place] [address] [address] Oct, High risk medication use Z79.899 ; Bipol ar disorder F31.9 ; Moderate intellectual disability F71 and Attention-deficit hyperactivity disorder, predominantly inattentive type F90.0 [facility] [address] [place] [id number] [place] [address] Oct, [facility] [address] [address] Sep, Bipolar disorder, currently in remission , most recent episode unspecified F31.70 [facility] [address] [id number] [place] [id number] Sep, 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 status requiring routine preventive dental care K08.9 and Arrested dental caries K02.3 [facility] [address] [place] [id number] [place] [address] Sep, Bipolar disorder, currently in remission , most recent episode unspecified F31.70 ; Moderate intellectual disability F71 and Attention-deficit hyperactivity disorder, predominantly inattentive type F90.0 [facility] [address] [address] Sep, Bipolar disorder, currently in remission , most recent episode unspecified F31.70 [facility] [address] [address] Aug, Bipolar disorder, currently in remission , most recent episode unspecified F31.70 [facility] [address] [address] Jul, Bipolar disorder, currently in remission , most recent episode unspecified F31.70 [facility] [address] [address] Jul, Bipolar disorder, currently in remission , most recent episode unspecified F31.70 [facility] [address] [address] Jun, [facility] [address] [address] Jun, Bipolar disorder, currently in remission , most recent episode unspecified F31.70 [facility] [address] [place] [id number] [place] [id number] Jun, Dental examination Z01.20 and Dental car ies K02.9 [facility] [address] [place] [id number] [place] [address] May, Bipolar disorder, currently in remission , most recent episode unspecified F31.70 [facility] [address] [address] May, Bipolar disorder, currently in remission , most recent episode unspecified F31.70 [facility] [address] [address] May, Bipolar disorder, currently in remission , most recent episode unspecified F31.70 ; Moderate intellectual disability F71 and Attention-deficit hyperactivity disorder, predominantly inattentive type F90.0 [facility] [address] [address] Apr, Bipolar disorder, unspecified F31.9 [facility] [address] [address] Apr, [facility] [address] [address] Apr, [facility] [address] [address] Apr, [facility] [address] [address] March, [facility] [address] [address] March, Bipolar disorder, currently in remission , most recent episode unspecified F31.70 ; Moderate intellectual disability F71 and Attention-deficit hyperactivity disorder, predominantly inattentive type F90.0 [facility] [address] [address] Feb, [facility] [address] [id number] Feb, Dental examination Z01.20 [facility] [address] [address] Jan, [facility] [address] [address] Jan, [facility] [address] [address] Dec, [facility] [address] [address] Nov, [facility] [address] [id number] Nov, Encounter for dental exam and cleaning w /o abnormal findings Z01.20 [facility] [address] [id number] Nov, Dental examination Z01.20 [facility] [address] [place] [address] Oct, [facility] [address] [address] Oct, Bipolar disorder, currently in remission , most recent episode unspecified F31.70 ; Moderate intellectual disability F71 and Attention-deficit hyperactivity disorder, predominantly inattentive type F90.0 [facility] [address] [address] Sep, [facility] [address] [address] Sep, [facility] [address] [address] Aug, [facility] [address] [address] Aug, Attention-deficit hyperactivity disorder , predominantly inattentive type F90.0 ; Moderate intellectual disability F71 and Bipolar disorder F31.9 [facility] [address] [place] [id number] [place] [id number] Jul, Dental examination Z01.20 and Dental car ies K02.9 [facility] [address] [address] Jul, [facility] [address] [address] Jun, Bipolar disorder F31.9 ; Attention-defic it hyperactivity disorder, predominantly inattentive type F90.0 and Moderate intellectual disability F71 [facility] [address] [address] Jun, [facility] [address] [address] May, [facility] [address] [address] Apr, [facility] [address] [address] March, Intermittent explosive disorder F63.81 ; Attention deficit hyperactivity disorder F90.9 and Bipolar disorder F31.9 [facility] [address] [address] Feb, [facility] [address] [address] Jan, [facility] [address] [address] Dec, Encounter for immunization Z23 [facility] [address] [address] Dec, Intermittent explosive disorder F63.81 ; Attention deficit hyperactivity disorder F90.9 and Bipolar disorder, currently in remission, most recent episode unspecified F31.70 [facility] [address] [address] Nov, [facility] [address] [address] Oct, [facility] [address] [address] Oct, [facility] [address] [place] [id number] [place] [id number] Oct, Dental examination Z01.20 [facility] [address] [address] Sep, [facility] [address] [address] Sep, [facility] [address] [address] Sep, Intermittent explosive disorder F63.81 ; Bipolar disorder F31.9 and Attention deficit hyperactivity disorder F90.9 [facility] [address] [address] Aug, [facility] [address] [address] Aug, [facility] [address] [address] Aug, [facility] [address] [id number] [place] [address] 14 Aug, 2016 Attention deficit hyperactivity disorder F90.9 [facility] [address] [place] [id number] [place] [address] 16 Jul, 2016 [facility] [address] [id number] [place] [address] Jun, [facility] [address] [place] [id number] [place] [address] May, [facility] [address] [id number] [place] [address] Apr, [facility] [address] [place] [id number] [place] [address] Apr, Bipolar disorder F31.9 ; Attention defic it hyperactivity disorder F90.9 and Intermittent explosive disorder F63.81 [facility] [address] [place] [id number] [place] [address] March, [facility] [address] [place] [id number] [place] [address] Feb, [facility] [address] [place] [id number] [place] [address] Feb, [facility] [address] [place] [id number] [place] [address] Jan, [facility] [address] [place] [id number] [place] [address] Jan, [facility] [address] [place] [id number] [place] [address] Dec, [facility] [address] [id number] [place] [address] Nov, [facility] [address] [place] [id number] [place] [address] Nov, [facility] [address] [id number] [place] [address] Nov, Attention deficit hyperactivity disorder F90.9 ; Intermittent explosive disorder F63.81 and Bipolar disorder F31.9 [facility] [address] [address] Oct, [facility] [address] [address] Oct, [facility] [address] [address] Sep, [facility] [address] [address] Aug, [facility] [address] [address] Jul, [facility] [address] [address] Jul, [facility] [address] [address] Jul, Anxiety, generalized 300.02 ; Bipolar di sorder, unspecified 296.80 ; 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.00 ; 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 and Impulse control disorder, unspecified 312.30 [facility] [address] [address] Jul, [facility] [address] [address] Jun, [facility] [address] [address] May, [facility] [address] [address] Apr, [facility] [address] [address] Apr, Bipolar disorder, unspecified 296.80 ; G eneralized anxiety disorder 300.02 and 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.00 [facility] [address] [address] Apr, [facility] [address] [address] March, [facility] [address] [id number] [place] [address] March, [facility] [address] [id number] [place] [address] March, [facility] [address] [id number] [place] [address] March, [facility] [address] [id number] [place] [address] Feb, [facility] [address] [id number] [place] [address] Feb, [facility] [address] [id number] [place] [address] Jan, [facility] [address] [id number] [place] [address] Jan, [facility] [address] [id number] [place] [address] Jan, [facility] [address] [id number] [place] [address] Jan, [facility] [address] [id number] [place] [address] Jan, [facility] [address] [id number] [place] [address] Dec, [facility] [address] [id number] [place] [address] Dec, [facility] [address] [id number] [place] [address] Nov, [facility] [address] [id number] [place] [address] Nov, [facility] [address] [id number] [place] [address] Nov, [facility] [address] [id number] [place] [address] Oct, [facility] [address] [id number] [place] [address] Oct, [facility] [address] [facility] [id number] [place] [address] Oct, [facility] [address] [id number] [place] [address] Oct, [facility] [address] [id number] [place] [address] Oct, [facility] [address] [id number] [place] [address] Oct, [facility] [address] [id number] [place] [address] Sep, [facility] [address] [id number] [place] [address] Sep, [facility] [address] [id number] [place] [address] Sep, [facility] [address] [id number] [place] [address] Aug, [facility] [address] [id number] [place] [address] Aug, [facility] [address] [id number] [place] [address] Jul, [facility] [address] [id number] [place] [address] Jul, [facility] [address] [id number] [place] [address] Jun, [facility] [address] [id number] [place] [address] Jun, [facility] [address] [id number] [place] [address] Jun, [facility] [address] [id number] [place] [address] Jun, [facility] [address] [id number] [place] [address] May, [facility] [address] [facility] [id number] [place] [address] May, [facility] [address] [facility] [id number] [place] [address] May, [facility] [address] [facility] [id number] [place] [address] Apr, [facility] [address] [id number] [place] [address] Apr, [facility] [address] [facility] [id number] [place] [address] Apr, [facility] [address] [facility] [id number] [place] [address] Apr, [facility] [address] [id number] [place] [address] March, [facility] [address] [id number] [place] [address] March, [facility] [address] [id number] [place] [address] March, [facility] [address] [id number] [place] [address] March, [facility] [address] [id number] [place] [address] Feb, [facility] [address] [id number] [place] [address] Feb, [facility] [address] [id number] [place] [address] Jan, [facility] [address] [facility] [id number] [place] [address] Jan, [facility] [address] [id number] [place] [address] Jan, [facility] [address] [id number] [place] [address] Jan, [facility] [address] [id number] [place] [address] Jan, [facility] [address] [facility] [id number] [place] [address] Jan, [facility] [address] [id number] [place] [address] Jan, [facility] [address] [id number] [place] [address] Jan, [facility] [address] [id number] [place] [address] Dec, [facility] [address] [facility] [id number] [place] [address] Dec, [facility] [address] [id number] [place] [address] Dec, [facility] [address] [id number] [place] [address] Dec, [facility] [address] [id number] [place] [address] Nov, [facility] [address] [id number] [place] [address] Nov, [facility] [address] [id number] [place] [address] Oct, [facility] [address] [id number] [place] [address] Oct, [facility] [address] [id number] [place] [address] Oct, [facility] [address] [id number] [place] [address] Oct, [facility] [address] [id number] [place] [address] Sep, [facility] [address] [id number] [place] [address] Sep, [facility] [address] [id number] [place] [address] Sep, [facility] [address] [id number] [place] [address] 07 Sep, 2013 [facility] [address] [id number] [place] [address] Aug, [facility] [address] [id number] [place] [address] Aug, [facility] [address] [id number] [place] [address] Aug, [facility] [address] [id number] [place] [address] Jul, [facility] [address] [id number] [place] [address] Jul, [facility] [address] [id number] [place] [address] Jun, [facility] [address] [id number] [place] [address] Jun, [facility] [address] [id number] [place] [address] May, [facility] [address] [id number] [place] [address] May, [facility] [address] [id number] [place] [address] Apr, [facility] [address] [id number] [place] [address] March, [facility] [address] [id number] [place] [address] March, [facility] [address] [id number] [place] [address] Feb, [facility] [id number] [place] [address] Jan, [facility] [address] [id number] [place] [address] Jan, [facility] [address] [id number] [place] [address] Dec, [facility] [address] [id number] [place] [address] Dec, [facility] [address] [id number] [place] [address] Nov, [facility] [address] [id number] [place] [address] Nov, [facility] [address] [id number] [place] [address] Nov, [facility] [address] [id number] [place] [address] Nov, [facility] [address] [id number] [place] [address] Nov, [facility] [address] [id number] [place] [address] Oct, [facility] [address] [id number] [place] [address] Oct, [facility] [address] [id number] [place] [address] Oct, [facility] [address] [id number] [place] [address] Oct, [facility] [address] [id number] [place] [address] Oct, [facility] [address] [id number] [place] [address] Oct, [facility] [address] [id number] [place] [address] 05 Oct, 2012 [facility] [address] [id number] [place] [address] Oct, [facility] [address] [id number] [place] [address] Sep, [facility] [address] [id number] [place] [address] Sep, [facility] [address] [id number] [place] [address] Sep, [facility] [address] [id number] [place] [address] Aug, [facility] [address] [id number] [place] [address] Aug, [facility] [address] [id number] [place] [address] Aug, [facility] [address] [id number] [place] [address] Aug, [facility] [address] [id number] [place] [address] Aug, [facility] [address] [id number] [place] [address] Jul, [facility] [address] [id number] [place] [address] Jul, [facility] [address] [id number] [place] [address] Jun, [facility] [address] [id number] [place] [address] May, [facility] [address] [id number] [place] [address] May, [facility] [address] [id number] [place] [address] Apr, [facility] [address] [id number] [place] [address] March, [facility] [address] [id number] [place] [address] March, [facility] [address] [id number] [place] [address] March, [facility] [address] [id number] [place] [address] March, [facility] [address] [id number] [place] [address] Feb, [facility] [id number] [place] [address] Feb, [facility] [id number] [place] [address] Jan, [facility] [id number] [place] [address] Dec, [facility] [id number] [place] [address] Dec, [facility] [id number] [place] [address] Dec, [facility] [id number] [place] [address] Nov, [facility] [address] [address] Nov, [facility] [id number] [place] [address] Nov, [facility] [id number] [place] [address] Oct, [facility] [id number] [place] [address] Sep, [facility] [address] [address] Aug, [facility] [id number] [place] [address] Aug, [facility] [id number] [place] [address] May, [facility] [id number] [place] [address] Sep, [facility] [address] [address] Sep, IMMUNIZATIONS No Known Immunizations SOCIAL HISTORY [...]
--- OUTSIDE RECORDS SUMMARY | 2020-03-18 15:25 | XMS REPORT ---
Author Author Jose Cruz Mercer Doctor Organization [facility] Address Unknown Phone Unavailable Care Team Providers Care Metrology Technician Name Role Phone Migration, Doctor Unavailable Unavailable PROBLEMS Type Condition ICD9-CM Code [id number] Code Onset Dates Condition S tatus SNOMED Code Problem Moderate intellectual disability F71 Active 52377035 Problem Attention-deficit hyperactiv ity disorder, predominantly inattentive type F90.0 Active 82058625 Problem Intermittent explosive disorder F63.81 Active 76810300 Problem Bipolar disorder, currently in remission, most recent episode unspecified F31.70 Active [id number] ALLERGIES No Information ENCOUNTERS Encounter Location Date Diagnosis [place] [address] [address] Oct, [address] [address] Sep, Intermittent explosive disorder F63.81 ; Bipolar disorder, currently in remission, most recent episode unspecified F31.70 ; Attention-deficit hyperactivity disorder, predominantly inattentive type F90.0 ; Moderate intellectual disability F71 ; Encounter to establish care Z76.89 and Abrasion, left lower leg, sequela S80.812S [place] [address] [address] 15 Sep, [address] [address] Sep, Annual physical exam Z00.00 ; Abrasion o f left lower leg, initial encounter S80.812A ; Cellulitis of left lower leg L03.116 ; Attention deficit hyperactivity disorder F90.9 ; Intermittent explosive disorder F63.81 and Intellectual disability F79 [place] [address] [address] Jul, Bipolar disorder F31.9 [place] [address] [address] Jul, Acute gastroenteritis K52.9 ; Intellectu al disability F79 and Bipolar disorder F31.9 [place] [address] [address] Jun, [place] [address] [address] Jun, Bipolar disorder F31.9 [place] [address] [address] May, Bipolar disorder F31.9 ; Intellectual di sability F79 and Attention- deficit hyperactivity disorder, predominantly inattentive type F90.0 [place] [address] [address] May, [place] [address] [address] May, Bipolar disorder F31.9 [place] [address] [address] May, Bipolar disorder F31.9 ; Attention-defic it hyperactivity disorder, predominantly inattentive type F90.0 and Moderate intellectual disability F71 [place] [address] [address] Apr, Bipolar disorder F31.9 [place] [address] [address] Apr, Bipolar disorder F31.9 and High risk med ication use Z79.899 [place] [address] [address] March, Bipolar disorder F31.9 and High risk med ication use Z79.899 [place] [address] [address] March, Bipolar disorder F31.9 [facility] [id number] [place] [address] March, Caries K02.9 [place] [address] [address] March, Bipolar disorder F31.9 [facility] [address] [address] March, Bipolar disorder F31.9 [facility] [address] [address] Feb, Bipolar disorder F31.9 [facility] [address] [address] Feb, Bipolar disorder F31.9 ; Attention-defic it hyperactivity disorder, predominantly inattentive type F90.0 and Moderate intellectual disability F71 [facility] [address] [address] Jan, Bipolar disorder F31.9 [facility] [address] [address] Jan, Bipolar disorder F31.9 [facility] [address] [address] Jan, Dental examination Z01.20 ; 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 status requiring routine preventive dental care K08.9 and Caries K02.9 [place] [address] [address] Jan, [facility] [address] [address] Jan, Bipolar disorder F31.9 ; Moderate intell ectual disability F71 and Attention-deficit hyperactivity disorder, predominantly inattentive type F90.0 [place] [address] [address] Dec, Bipolar disorder, currently in remission , most recent episode unspecified F31.70 [place] [address] [address] Dec, Bipolar disorder, currently in remission , most recent episode unspecified F31.70 [facility] [address] [address] Dec, Bipolar disorder, currently in remission , most recent episode unspecified F31.70 [facility] [address] [place] [id number] [place] [address] Dec, [facility] [address] [address] Dec, Bipolar disorder, currently in remission , most recent episode unspecified F31.70 [facility] [address] [address] Nov, Bipolar disorder, currently in remission , most recent episode unspecified F31.70 [facility] [address] [address] Nov, [place] [address] [address] Nov, [facility] [address] [address] Nov, Bipolar disorder, currently in remission , most recent episode unspecified F31.70 [facility] [address] [place] [id number] [place] [address] Nov, Bipolar disorder, currently in remission , most recent episode unspecified F31.70 [place] [address] [address] Oct, High risk medication use Z79.899 ; Bipol ar disorder F31.9 ; Moderate intellectual disability F71 and Attention-deficit hyperactivity disorder, predominantly inattentive type F90.0 [facility] [address] [place] [id number] [place] [address] Oct, [facility] [address] [address] Sep, Bipolar disorder, currently in remission , most recent episode unspecified F31.70 [facility] [address] [facility] [place] [id number] Sep, 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 status requiring routine preventive dental care K08.9 and Arrested dental caries K02.3 [facility] [address] [place] [id number] [place] [address] Sep, Bipolar disorder, currently in remission , most recent episode unspecified F31.70 ; Moderate intellectual disability F71 and Attention-deficit hyperactivity disorder, predominantly inattentive type F90.0 [facility] [address] [address] Sep, Bipolar disorder, currently in remission , most recent episode unspecified F31.70 [facility] [address] [address] Aug, Bipolar disorder, currently in remission , most recent episode unspecified F31.70 [facility] [address] [address] Jul, Bipolar disorder, currently in remission , most recent episode unspecified F31.70 [facility] [address] [address] Jul, Bipolar disorder, currently in remission , most recent episode unspecified F31.70 [facility] [address] [address] Jun, [facility] [address] [address] Jun, Bipolar disorder, currently in remission , most recent episode unspecified F31.70 [facility] [address] [place] [id number] [place] [id number] Jun, Dental examination Z01.20 and Dental car ies K02.9 [facility] [address] [place] [id number] [place] [address] May, Bipolar disorder, currently in remission , most recent episode unspecified F31.70 [facility] [address] [address] May, Bipolar disorder, currently in remission , most recent episode unspecified F31.70 [facility] [address] [address] May, Bipolar disorder, currently in remission , most recent episode unspecified F31.70 ; Moderate intellectual disability F71 and Attention-deficit hyperactivity disorder, predominantly inattentive type F90.0 [facility] [address] [address] Apr, Bipolar disorder, unspecified F31.9 [facility] [address] [address] Apr, [facility] [address] [address] Apr, [facility] [address] [address] Apr, [facility] [address] [address] March, [facility] [address] [address] March, Bipolar disorder, currently in remission , most recent episode unspecified F31.70 ; Moderate intellectual disability F71 and Attention-deficit hyperactivity disorder, predominantly inattentive type F90.0 [facility] [address] [address] Feb, [facility] [address] [id number] Feb, Dental examination Z01.20 [facility] [address] [address] Jan, [facility] [address] [address] Jan, [facility] [address] [address] Dec, [facility] [address] [address] Nov, [facility] [address] [id number] Nov, Encounter for dental exam and cleaning w /o abnormal findings Z01.20 [facility] [address] [id number] Nov, Dental examination Z01.20 [facility] [address] [place] [address] Oct, [facility] [address] [address] Oct, Bipolar disorder, currently in remission , most recent episode unspecified F31.70 ; Moderate intellectual disability F71 and Attention-deficit hyperactivity disorder, predominantly inattentive type F90.0 [facility] [address] [address] Sep, [facility] [address] [address] Sep, [facility] [address] [address] Aug, [facility] [address] [address] Aug, Attention-deficit hyperactivity disorder , predominantly inattentive type F90.0 ; Moderate intellectual disability F71 and Bipolar disorder F31.9 [facility] [address] [place] [id number] [place] [id number] Jul, Dental examination Z01.20 and Dental car ies K02.9 [facility] [address] [address] Jul, [facility] [address] [address] Jun, Bipolar disorder F31.9 ; Attention-defic it hyperactivity disorder, predominantly inattentive type F90.0 and Moderate intellectual disability F71 [facility] [address] [address] Jun, [facility] [address] [address] May, [facility] [address] [address] Apr, [facility] [address] [address] March, Intermittent explosive disorder F63.81 ; Attention deficit hyperactivity disorder F90.9 and Bipolar disorder F31.9 [facility] [address] [address] Feb, [facility] [address] [address] Jan, [facility] [address] [address] Dec, Encounter for immunization Z23 [facility] [address] [address] Dec, Intermittent explosive disorder F63.81 ; Attention deficit hyperactivity disorder F90.9 and Bipolar disorder, currently in remission, most recent episode unspecified F31.70 [facility] [address] [address] Nov, [facility] [address] [address] Oct, [facility] [address] [address] Oct, [facility] [address] [place] [id number] [place] [id number] Oct, Dental examination Z01.20 [facility] [address] [address] Sep, [facility] [address] [address] Sep, [facility] [address] [address] Sep, Intermittent explosive disorder F63.81 ; Bipolar disorder F31.9 and Attention deficit hyperactivity disorder F90.9 [facility] [address] [address] Aug, [facility] [address] [address] Aug, [facility] [address] [address] Aug, [facility] [address] [id number] [place] [address] 14 Aug, 2016 Attention deficit hyperactivity disorder F90.9 [facility] [address] [place] [id number] [place] [address] 16 Jul, 2016 [facility] [address] [id number] [place] [address] Jun, [facility] [address] [place] [id number] [place] [address] May, [facility] [address] [id number] [place] [address] Apr, [facility] [address] [place] [id number] [place] [address] Apr, Bipolar disorder F31.9 ; Attention defic it hyperactivity disorder F90.9 and Intermittent explosive disorder F63.81 [facility] [address] [place] [id number] [place] [address] March, [facility] [address] [place] [id number] [place] [address] Feb, [facility] [address] [place] [id number] [place] [address] Feb, [facility] [address] [place] [id number] [place] [address] Jan, [facility] [address] [place] [id number] [place] [address] Jan, [facility] [address] [place] [id number] [place] [address] Dec, [facility] [address] [id number] [place] [address] Nov, [facility] [address] [place] [id number] [place] [address] Nov, [facility] [address] [id number] [place] [address] Nov, Attention deficit hyperactivity disorder F90.9 ; Intermittent explosive disorder F63.81 and Bipolar disorder F31.9 [facility] [address] [address] Oct, [facility] [address] [address] Oct, [facility] [address] [address] Sep, [facility] [address] [address] Aug, [facility] [address] [address] Jul, [facility] [address] [address] Jul, [facility] [address] [address] Jul, Anxiety, generalized 300.02 ; Bipolar di sorder, unspecified 296.80 ; 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.00 ; 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 and Impulse control disorder, unspecified 312.30 [facility] [address] [address] Jul, [facility] [address] [address] Jun, [facility] [address] [address] May, [facility] [address] [address] Apr, [facility] [address] [address] Apr, Bipolar disorder, unspecified 296.80 ; G eneralized anxiety disorder 300.02 and 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.00 [facility] [address] [address] Apr, [facility] [address] [address] March, [facility] [address] [id number] [place] [address] March, [facility] [address] [id number] [place] [address] March, [facility] [address] [id number] [place] [address] March, [facility] [address] [id number] [place] [address] Feb, [facility] [address] [id number] [place] [address] Feb, [facility] [address] [id number] [place] [address] Jan, [facility] [address] [id number] [place] [address] Jan, [facility] [address] [id number] [place] [address] Jan, [facility] [address] [id number] [place] [address] Jan, [facility] [address] [id number] [place] [address] Jan, [facility] [address] [id number] [place] [address] Dec, [facility] [address] [id number] [place] [address] Dec, [facility] [address] [id number] [place] [address] Nov, [facility] [address] [id number] [place] [address] Nov, [facility] [address] [id number] [place] [address] Nov, [facility] [address] [id number] [place] [address] Oct, [facility] [address] [id number] [place] [address] Oct, [facility] [address] [facility] [id number] [place] [address] Oct, [facility] [address] [id number] [place] [address] Oct, [facility] [address] [id number] [place] [address] Oct, [facility] [address] [id number] [place] [address] Oct, [facility] [address] [id number] [place] [address] Sep, [facility] [address] [id number] [place] [address] Sep, [facility] [address] [id number] [place] [address] Sep, [facility] [address] [id number] [place] [address] Aug, [facility] [address] [id number] [place] [address] Aug, [facility] [address] [id number] [place] [address] Jul, [facility] [address] [id number] [place] [address] Jul, [facility] [address] [id number] [place] [address] Jun, [facility] [address] [id number] [place] [address] Jun, [facility] [address] [id number] [place] [address] Jun, [facility] [address] [id number] [place] [address] Jun, [facility] [address] [id number] [place] [address] May, [facility] [address] [facility] [id number] [place] [address] May, [facility] [address] [facility] [id number] [place] [address] May, [facility] [address] [facility] [id number] [place] [address] Apr, [facility] [address] [id number] [place] [address] Apr, [facility] [address] [facility] [id number] [place] [address] Apr, [facility] [address] [facility] [id number] [place] [address] Apr, [facility] [address] [id number] [place] [address] March, [facility] [address] [id number] [place] [address] March, [facility] [address] [id number] [place] [address] March, [facility] [address] [id number] [place] [address] March, [facility] [address] [id number] [place] [address] Feb, [facility] [address] [id number] [place] [address] Feb, [facility] [address] [id number] [place] [address] Jan, [facility] [address] [facility] [id number] [place] [address] Jan, [facility] [address] [id number] [place] [address] Jan, [facility] [address] [id number] [place] [address] Jan, [facility] [address] [id number] [place] [address] Jan, [facility] [address] [facility] [id number] [place] [address] Jan, [facility] [address] [id number] [place] [address] Jan, [facility] [address] [id number] [place] [address] Jan, [facility] [address] [id number] [place] [address] Dec, [facility] [address] [facility] [id number] [place] [address] Dec, [facility] [address] [id number] [place] [address] Dec, [facility] [address] [id number] [place] [address] Dec, [facility] [address] [id number] [place] [address] Nov, [facility] [address] [id number] [place] [address] Nov, [facility] [address] [id number] [place] [address] Oct, [facility] [address] [id number] [place] [address] Oct, [facility] [address] [id number] [place] [address] Oct, [facility] [address] [id number] [place] [address] Oct, [facility] [address] [id number] [place] [address] Sep, [facility] [address] [id number] [place] [address] Sep, [facility] [address] [id number] [place] [address] Sep, [facility] [address] [id number] [place] [address] 07 Sep, 2013 [facility] [address] [id number] [place] [address] Aug, [facility] [address] [id number] [place] [address] Aug, [facility] [address] [id number] [place] [address] Aug, [facility] [address] [id number] [place] [address] Jul, [facility] [address] [id number] [place] [address] Jul, [facility] [address] [id number] [place] [address] Jun, [facility] [address] [id number] [place] [address] Jun, [facility] [address] [id number] [place] [address] May, [facility] [address] [id number] [place] [address] May, [facility] [address] [id number] [place] [address] Apr, [facility] [address] [id number] [place] [address] March, [facility] [address] [id number] [place] [address] March, [facility] [address] [id number] [place] [address] Feb, [facility] [id number] [place] [address] Jan, [facility] [address] [id number] [place] [address] Jan, [facility] [address] [id number] [place] [address] Dec, [facility] [address] [id number] [place] [address] Dec, [facility] [address] [id number] [place] [address] Nov, [facility] [address] [id number] [place] [address] Nov, [facility] [address] [id number] [place] [address] Nov, [facility] [address] [id number] [place] [address] Nov, [facility] [address] [id number] [place] [address] Nov, [facility] [address] [id number] [place] [address] Oct, [facility] [address] [id number] [place] [address] Oct, [facility] [address] [id number] [place] [address] Oct, [facility] [address] [id number] [place] [address] Oct, [facility] [address] [id number] [place] [address] Oct, [facility] [address] [id number] [place] [address] Oct, [facility] [address] [id number] [place] [address] 05 Oct, 2012 [facility] [address] [id number] [place] [address] Oct, [facility] [address] [id number] [place] [address] Sep, [facility] [address] [id number] [place] [address] Sep, [facility] [address] [id number] [place] [address] Sep, [facility] [address] [id number] [place] [address] Aug, [facility] [address] [id number] [place] [address] Aug, [facility] [address] [id number] [place] [address] Aug, [facility] [address] [id number] [place] [address] Aug, [facility] [address] [id number] [place] [address] Aug, [facility] [address] [id number] [place] [address] Jul, [facility] [address] [id number] [place] [address] Jul, [facility] [address] [id number] [place] [address] Jun, [facility] [address] [id number] [place] [address] May, [facility] [address] [id number] [place] [address] May, [facility] [address] [id number] [place] [address] Apr, [facility] [address] [id number] [place] [address] March, [facility] [address] [id number] [place] [address] March, [facility] [address] [id number] [place] [address] March, [facility] [address] [id number] [place] [address] March, [facility] [address] [id number] [place] [address] Feb, [facility] [address] [id number] [place] [address] 05 Feb, 2012 [facility] [id number] [place] [address] Jan, [facility] [id number] [place] [address] Dec, [facility] [id number] [place] [address] Dec, [facility] [id number] [place] [address] Dec, [facility] [id number] [place] [address] Nov, [facility] [id number] [place] [address] Nov, [facility] [id number] [place] [address] Nov, [facility] [id number] [place] [address] Oct, [facility] [id number] [place] [address] Sep, [facility] [id number] [place] [address] Aug, [facility] [id number] [place] [address] Aug, [facility] [id number] [place] [address] May, [facility] [id number] [place] [address] Sep, [facility] [id number] [place] [address] Sep, IMMUNIZATIONS No Known Immunizations SOCIAL HISTORY Never Assessed REASON FOR VISIT PLAN OF CARE VITAL SIGNS Height 73 in 2014-04-23 Weight 273 lbs 2014-04-23 Temperature 99.5 degrees Fahrenheit 2014-04-23 Heart Rate 80 bpm 2014-04-23 Respiratory Rate 28 2014-04-23 Blood pressure systolic 118 mmHg 2014-04-23 Blood pressure diastolic 82 mmHg 2014-04-23 MEDICATIONS Unknown Medications RESULTS No Results PROCEDURES No Known procedures INSTRUCTIONS MEDICATIONS ADMINISTERED No Known Medications MEDICAL (GENERAL) HISTORY Type Description Date Medical History bipolar Medical History adhd Medical History anxiety Medical History Intermittent explosive disorder Medical History Bipolar disorder Medical History Intellectual disability Surgical History No Surgical history information
--- OUTSIDE RECORDS SUMMARY | 2020-03-18 15:25 | XMS REPORT ---
Author Author Jose Cruz Mercer Doctor Organization [facility] Address Unknown Phone Unavailable Care Team Providers Care Correction Officer Supervisor Name Role Phone Migration, Doctor Unavailable Unavailable PROBLEMS Type Condition ICD9-CM Code [id number] Code Onset Dates Condition S tatus SNOMED Code Problem Moderate intellectual disability F71 Active [id number] Problem Attention-deficit hyperactiv ity disorder, predominantly inattentive type F90.0 Active 58625669 Problem Intermittent explosive disorder F63.81 Active 03264009 Problem Bipolar disorder, currently in remission, most recent episode unspecified F31.70 Active [id number] ALLERGIES No Information ENCOUNTERS Encounter Location Date Diagnosis [place] [address] [address] Oct, [address] [address] Sep, Intermittent explosive disorder F63.81 ; Bipolar disorder, currently in remission, most recent episode unspecified F31.70 ; Attention-deficit hyperactivity disorder, predominantly inattentive type F90.0 ; Moderate intellectual disability F71 ; Encounter to establish care Z76.89 and Abrasion, left lower leg, sequela S80.812S [place] [address] [address] 15 Sep, [address] [address] Sep, Annual physical exam Z00.00 ; Abrasion o f left lower leg, initial encounter S80.812A ; Cellulitis of left lower leg L03.116 ; Attention deficit hyperactivity disorder F90.9 ; Intermittent explosive disorder F63.81 and Intellectual disability F79 [place] [address] [address] Jul, Bipolar disorder F31.9 [place] [address] [address] Jul, Acute gastroenteritis K52.9 ; Intellectu al disability F79 and Bipolar disorder F31.9 [place] [address] [address] Jun, [place] [address] [address] Jun, Bipolar disorder F31.9 [place] [address] [address] May, Bipolar disorder F31.9 ; Intellectual di sability F79 and Attention- deficit hyperactivity disorder, predominantly inattentive type F90.0 [place] [address] [address] May, [place] [address] [address] May, Bipolar disorder F31.9 [place] [address] [address] May, Bipolar disorder F31.9 ; Attention-defic it hyperactivity disorder, predominantly inattentive type F90.0 and Moderate intellectual disability F71 [place] [address] [address] Apr, Bipolar disorder F31.9 [place] [address] [address] Apr, Bipolar disorder F31.9 and High risk med ication use Z79.899 [place] [address] [address] March, Bipolar disorder F31.9 and High risk med ication use Z79.899 [place] [address] [address] March, Bipolar disorder F31.9 [facility] [address] [id number] [place] [address] March, Caries K02.9 [place] [address] [address] March, Bipolar disorder F31.9 [facility] [address] [address] March, Bipolar disorder F31.9 [facility] [address] [address] Feb, Bipolar disorder F31.9 [facility] [address] [address] Feb, Bipolar disorder F31.9 ; Attention-defic it hyperactivity disorder, predominantly inattentive type F90.0 and Moderate intellectual disability F71 [facility] [address] [address] Jan, Bipolar disorder F31.9 [facility] [address] [address] Jan, Bipolar disorder F31.9 [facility] [address] [address] Jan, Dental examination Z01.20 ; 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 status requiring routine preventive dental care K08.9 and Caries K02.9 [place] [address] [address] Jan, [facility] [address] [address] Jan, Bipolar disorder F31.9 ; Moderate intell ectual disability F71 and Attention-deficit hyperactivity disorder, predominantly inattentive type F90.0 [place] [address] [address] Dec, Bipolar disorder, currently in remission , most recent episode unspecified F31.70 [place] [address] [address] Dec, Bipolar disorder, currently in remission , most recent episode unspecified F31.70 [facility] [address] [address] Dec, Bipolar disorder, currently in remission , most recent episode unspecified F31.70 [facility] [address] [place] [id number] [place] [address] Dec, [facility] [address] [address] Dec, Bipolar disorder, currently in remission , most recent episode unspecified F31.70 [facility] [address] [address] Nov, Bipolar disorder, currently in remission , most recent episode unspecified F31.70 [facility] [address] [address] Nov, [place] [address] [address] Nov, [facility] [address] [address] Nov, Bipolar disorder, currently in remission , most recent episode unspecified F31.70 [facility] [address] [place] [id number] [place] [address] Nov, Bipolar disorder, currently in remission , most recent episode unspecified F31.70 [place] [address] [address] Oct, High risk medication use Z79.899 ; Bipol ar disorder F31.9 ; Moderate intellectual disability F71 and Attention-deficit hyperactivity disorder, predominantly inattentive type F90.0 [facility] [address] [place] [id number] [place] [address] Oct, [facility] [address] [address] Sep, Bipolar disorder, currently in remission , most recent episode unspecified F31.70 [facility] [address] [id number] [place] [id number] Sep, 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 status requiring routine preventive dental care K08.9 and Arrested dental caries K02.3 [facility] [address] [place] [id number] [place] [address] Sep, Bipolar disorder, currently in remission , most recent episode unspecified F31.70 ; Moderate intellectual disability F71 and Attention-deficit hyperactivity disorder, predominantly inattentive type F90.0 [facility] [address] [address] Sep, Bipolar disorder, currently in remission , most recent episode unspecified F31.70 [facility] [address] [address] Aug, Bipolar disorder, currently in remission , most recent episode unspecified F31.70 [facility] [address] [address] Jul, Bipolar disorder, currently in remission , most recent episode unspecified F31.70 [facility] [address] [address] Jul, Bipolar disorder, currently in remission , most recent episode unspecified F31.70 [facility] [address] [address] Jun, [facility] [address] [address] Jun, Bipolar disorder, currently in remission , most recent episode unspecified F31.70 [facility] [address] [place] [id number] [place] [id number] Jun, Dental examination Z01.20 and Dental car ies K02.9 [facility] [address] [place] [id number] [place] [address] May, Bipolar disorder, currently in remission , most recent episode unspecified F31.70 [facility] [address] [address] May, Bipolar disorder, currently in remission , most recent episode unspecified F31.70 [facility] [address] [address] May, Bipolar disorder, currently in remission , most recent episode unspecified F31.70 ; Moderate intellectual disability F71 and Attention-deficit hyperactivity disorder, predominantly inattentive type F90.0 [facility] [address] [address] Apr, Bipolar disorder, unspecified F31.9 [facility] [address] [address] Apr, [facility] [address] [address] Apr, [facility] [address] [address] Apr, [facility] [address] [address] March, [facility] [address] [address] March, Bipolar disorder, currently in remission , most recent episode unspecified F31.70 ; Moderate intellectual disability F71 and Attention-deficit hyperactivity disorder, predominantly inattentive type F90.0 [facility] [address] [address] Feb, [facility] [address] [id number] Feb, Dental examination Z01.20 [facility] [address] [address] Jan, [facility] [address] [address] Jan, [facility] [address] [address] Dec, [facility] [address] [address] Nov, [facility] [address] [id number] Nov, Encounter for dental exam and cleaning w /o abnormal findings Z01.20 [facility] [address] [id number] Nov, Dental examination Z01.20 [facility] [address] [place] [address] Oct, [facility] [address] [address] Oct, Bipolar disorder, currently in remission , most recent episode unspecified F31.70 ; Moderate intellectual disability F71 and Attention-deficit hyperactivity disorder, predominantly inattentive type F90.0 [facility] [address] [address] Sep, [facility] [address] [address] Sep, [facility] [address] [address] Aug, [facility] [address] [address] Aug, Attention-deficit hyperactivity disorder , predominantly inattentive type F90.0 ; Moderate intellectual disability F71 and Bipolar disorder F31.9 [facility] [address] [place] [id number] [place] [id number] Jul, Dental examination Z01.20 and Dental car ies K02.9 [facility] [address] [address] Jul, [facility] [address] [address] Jun, Bipolar disorder F31.9 ; Attention-defic it hyperactivity disorder, predominantly inattentive type F90.0 and Moderate intellectual disability F71 [facility] [address] [address] Jun, [facility] [address] [address] May, [facility] [address] [address] Apr, [facility] [address] [address] March, Intermittent explosive disorder F63.81 ; Attention deficit hyperactivity disorder F90.9 and Bipolar disorder F31.9 [facility] [address] [address] Feb, [facility] [address] [address] Jan, [facility] [address] [address] Dec, Encounter for immunization Z23 [facility] [address] [address] Dec, Intermittent explosive disorder F63.81 ; Attention deficit hyperactivity disorder F90.9 and Bipolar disorder, currently in remission, most recent episode unspecified F31.70 [facility] [address] [address] Nov, [facility] [address] [address] Oct, [facility] [address] [address] Oct, [facility] [address] [place] [id number] [place] [id number] Oct, Dental examination Z01.20 [facility] [address] [address] Sep, [facility] [address] [address] Sep, [facility] [address] [address] Sep, Intermittent explosive disorder F63.81 ; Bipolar disorder F31.9 and Attention deficit hyperactivity disorder F90.9 [facility] [address] [address] Aug, [facility] [address] [address] Aug, [facility] [address] [address] Aug, [facility] [address] [id number] [place] [address] 14 Aug, 2016 Attention deficit hyperactivity disorder F90.9 [facility] [address] [place] [id number] [place] [address] 16 Jul, 2016 [facility] [address] [id number] [place] [address] Jun, [facility] [address] [place] [id number] [place] [address] May, [facility] [address] [id number] [place] [address] Apr, [facility] [address] [place] [id number] [place] [address] Apr, Bipolar disorder F31.9 ; Attention defic it hyperactivity disorder F90.9 and Intermittent explosive disorder F63.81 [facility] [address] [place] [id number] [place] [address] March, [facility] [address] [place] [id number] [place] [address] Feb, [facility] [address] [place] [id number] [place] [address] Feb, [facility] [address] [place] [id number] [place] [address] Jan, [facility] [address] [place] [id number] [place] [address] Jan, [facility] [address] [place] [id number] [place] [address] Dec, [facility] [address] [id number] [place] [address] Nov, [facility] [address] [place] [id number] [place] [address] Nov, [facility] [address] [id number] [place] [address] Nov, Attention deficit hyperactivity disorder F90.9 ; Intermittent explosive disorder F63.81 and Bipolar disorder F31.9 [facility] [address] [address] Oct, [facility] [address] [address] Oct, [facility] [address] [address] Sep, [facility] [address] [address] Aug, [facility] [address] [address] Jul, [facility] [address] [address] Jul, [facility] [address] [address] Jul, Anxiety, generalized 300.02 ; Bipolar di sorder, unspecified 296.80 ; 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.00 ; 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 and Impulse control disorder, unspecified 312.30 [facility] [address] [address] Jul, [facility] [address] [address] Jun, [facility] [address] [address] May, [facility] [address] [address] Apr, [facility] [address] [address] Apr, Bipolar disorder, unspecified 296.80 ; G eneralized anxiety disorder 300.02 and 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.00 [facility] [address] [address] Apr, [facility] [address] [address] March, [facility] [address] [id number] [place] [address] March, [facility] [address] [id number] [place] [address] March, [facility] [address] [id number] [place] [address] March, [facility] [address] [id number] [place] [address] Feb, [facility] [address] [id number] [place] [address] Feb, [facility] [address] [id number] [place] [address] Jan, [facility] [address] [id number] [place] [address] Jan, [facility] [address] [id number] [place] [address] Jan, [facility] [address] [id number] [place] [address] Jan, [facility] [address] [id number] [place] [address] Jan, [facility] [address] [id number] [place] [address] Dec, [facility] [address] [id number] [place] [address] Dec, [facility] [address] [id number] [place] [address] Nov, [facility] [address] [id number] [place] [address] Nov, [facility] [address] [id number] [place] [address] Nov, [facility] [address] [id number] [place] [address] Oct, [facility] [address] [id number] [place] [address] Oct, [facility] [address] [facility] [id number] [place] [address] Oct, [facility] [address] [id number] [place] [address] Oct, [facility] [address] [id number] [place] [address] Oct, [facility] [address] [id number] [place] [address] Oct, [facility] [address] [id number] [place] [address] Sep, [facility] [address] [id number] [place] [address] Sep, [facility] [address] [id number] [place] [address] Sep, [facility] [address] [id number] [place] [address] Aug, [facility] [address] [id number] [place] [address] Aug, [facility] [address] [id number] [place] [address] Jul, [facility] [address] [id number] [place] [address] Jul, [facility] [address] [id number] [place] [address] Jun, [facility] [address] [id number] [place] [address] Jun, [facility] [address] [id number] [place] [address] Jun, [facility] [address] [id number] [place] [address] Jun, [facility] [address] [id number] [place] [address] May, [facility] [address] [facility] [id number] [facility] [place] [address] May, [facility] [address] [facility] [id number] [place] [address] May, [facility] [address] [facility] [id number] [place] [address] Apr, [facility] [address] [id number] [place] [address] Apr, [facility] [address] [facility] [id number] [place] [address] Apr, [facility] [address] [facility] [id number] [place] [address] Apr, [facility] [address] [id number] [place] [address] March, [facility] [address] [id number] [place] [address] March, [facility] [address] [id number] [place] [address] March, [facility] [address] [id number] [place] [address] March, [facility] [address] [id number] [place] [address] Feb, [facility] [address] [id number] [place] [address] Feb, [facility] [address] [id number] [place] [address] Jan, [facility] [address] [facility] [id number] [place] [address] Jan, [facility] [address] [id number] [place] [address] Jan, [facility] [address] [id number] [place] [address] Jan, [facility] [address] [id number] [place] [address] Jan, [facility] [address] [facility] [id number] [place] [address] Jan, [facility] [address] [id number] [place] [address] Jan, [facility] [address] [id number] [place] [address] Jan, [facility] [address] [id number] [place] [address] Dec, [facility] [address] [facility] [id number] [place] [address] Dec, [facility] [address] [id number] [place] [address] Dec, [facility] [address] [id number] [place] [address] Dec, [facility] [address] [id number] [place] [address] Nov, [facility] [address] [id number] [place] [address] Nov, [facility] [address] [id number] [place] [address] Oct, [facility] [address] [id number] [place] [address] Oct, [facility] [address] [id number] [place] [address] Oct, [facility] [address] [id number] [place] [address] Oct, [facility] [address] [id number] [place] [address] Sep, [facility] [address] [id number] [place] [address] Sep, [facility] [address] [id number] [place] [address] Sep, [facility] [address] [id number] [place] [address] 07 Sep, 2013 [facility] [address] [id number] [place] [address] Aug, [facility] [address] [id number] [place] [address] Aug, [facility] [address] [id number] [place] [address] Aug, [facility] [address] [id number] [place] [address] Jul, [facility] [address] [id number] [place] [address] Jul, [facility] [address] [id number] [place] [address] Jun, [facility] [address] [id number] [place] [address] Jun, [facility] [address] [id number] [place] [address] May, [facility] [address] [id number] [place] [address] May, [facility] [address] [id number] [place] [address] Apr, [facility] [address] [id number] [place] [address] March, [facility] [address] [id number] [place] [address] March, [facility] [address] [id number] [place] [address] Feb, [facility] [id number] [place] [address] Jan, [facility] [address] [id number] [place] [address] Jan, [facility] [address] [id number] [place] [address] Dec, [facility] [address] [id number] [place] [address] Dec, [facility] [address] [id number] [place] [address] Nov, [facility] [address] [id number] [place] [address] Nov, [facility] [address] [id number] [place] [address] Nov, [facility] [address] [id number] [place] [address] Nov, [facility] [address] [id number] [place] [address] Nov, [facility] [address] [id number] [place] [address] Oct, [facility] [address] [id number] [place] [address] Oct, [facility] [address] [id number] [place] [address] Oct, [facility] [address] [id number] [place] [address] Oct, [facility] [address] [id number] [place] [address] Oct, [facility] [address] [id number] [place] [address] Oct, [facility] [address] [id number] [place] [address] 05 Oct, 2012 [facility] [address] [id number] [place] [address] Oct, [facility] [address] [id number] [place] [address] Sep, [facility] [address] [id number] [place] [address] Sep, [facility] [address] [id number] [place] [address] Sep, [facility] [address] [id number] [place] [address] Aug, [facility] [address] [id number] [place] [address] Aug, [facility] [address] [id number] [place] [address] Aug, [facility] [address] [id number] [place] [address] Aug, [facility] [address] [id number] [place] [address] Aug, [facility] [address] [id number] [place] [address] Jul, [facility] [address] [id number] [place] [address] Jul, [facility] [address] [id number] [place] [address] Jun, [facility] [address] [id number] [place] [address] May, [facility] [address] [id number] [place] [address] May, [facility] [address] [id number] [place] [address] Apr, [facility] [address] [id number] [place] [address] March, [facility] [address] [id number] [place] [address] March, [facility] [address] [id number] [place] [address] March, [facility] [address] [id number] [place] [address] March, [facility] [address] [id number] [place] [address] Feb, [facility] [id number] [place] [address] Feb, [facility] [id number] [place] [address] Jan, [facility] [id number] [place] [address] Dec, [facility] [id number] [place] [address] Dec, [facility] [id number] [place] [address] Dec, [facility] [id number] [place] [address] Nov, [facility] [address] [address] Nov, [facility] [id number] [place] [address] Nov, [facility] [id number] [place] [address] Oct, [facility] [id number] [place] [address] Sep, [facility] [address] [address] Aug, [facility] [id number] [place] [address] Aug, [facility] [id number] [place] [address] May, [facility] [id number] [place] [address] Sep, [facility] [address] [address] Sep, IMMUNIZATIONS No Known Immunizations SOCIAL HISTORY [...]
--- OUTSIDE RECORDS SUMMARY | 2020-03-18 15:25 | XMS REPORT ---
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 Active 31961239 Problem Attention-deficit hyperactiv ity disorder, predominantly inattentive type F90.0 Active 42541587 Problem Intermittent explosive disorder F63.81 Active 08711861 Problem Bipolar disorder, currently in remission, most recent episode unspecified F31.70 Active [id number] ALLERGIES No Information ENCOUNTERS Encounter Location Date Diagnosis [place] [address] [address] Oct, [address] [address] Sep, Intermittent explosive disorder F63.81 ; Bipolar disorder, currently in remission, most recent episode unspecified F31.70 ; Attention-deficit hyperactivity disorder, predominantly inattentive type F90.0 ; Moderate intellectual disability F71 ; Encounter to establish care Z76.89 and Abrasion, left lower leg, sequela S80.812S [place] [address] [address] 15 Sep, [address] [address] Sep, Annual physical exam Z00.00 ; Abrasion o f left lower leg, initial encounter S80.812A ; Cellulitis of left lower leg L03.116 ; Attention deficit hyperactivity disorder F90.9 ; Intermittent explosive disorder F63.81 and Intellectual disability F79 [place] [address] [address] Jul, Bipolar disorder F31.9 [place] [address] [address] Jul, Acute gastroenteritis K52.9 ; Intellectu al disability F79 and Bipolar disorder F31.9 [place] [address] [address] Jun, [place] [address] [address] Jun, Bipolar disorder F31.9 [place] [address] [address] May, Bipolar disorder F31.9 ; Intellectual di sability F79 and Attention- deficit hyperactivity disorder, predominantly inattentive type F90.0 [place] [address] [address] May, [place] [address] [address] May, Bipolar disorder F31.9 [place] [address] [address] May, Bipolar disorder F31.9 ; Attention-defic it hyperactivity disorder, predominantly inattentive type F90.0 and Moderate intellectual disability F71 [place] [address] [address] Apr, Bipolar disorder F31.9 [place] [address] [address] Apr, Bipolar disorder F31.9 and High risk med ication use Z79.899 [place] [address] [address] March, Bipolar disorder F31.9 and High risk med ication use Z79.899 [place] [address] [address] March, Bipolar disorder F31.9 [facility] [address] [id number] [place] [address] March, Caries K02.9 [place] [address] [address] March, Bipolar disorder F31.9 [facility] [address] [address] March, Bipolar disorder F31.9 [facility] [address] [address] Feb, Bipolar disorder F31.9 [facility] [address] [address] Feb, Bipolar disorder F31.9 ; Attention-defic it hyperactivity disorder, predominantly inattentive type F90.0 and Moderate intellectual disability F71 [facility] [address] [address] Jan, Bipolar disorder F31.9 [facility] [address] [address] Jan, Bipolar disorder F31.9 [facility] [address] [address] Jan, Dental examination Z01.20 ; 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 status requiring routine preventive dental care K08.9 and Caries K02.9 [place] [address] [address] Jan, [facility] [address] [address] Jan, Bipolar disorder F31.9 ; Moderate intell ectual disability F71 and Attention-deficit hyperactivity disorder, predominantly inattentive type F90.0 [place] [address] [address] Dec, Bipolar disorder, currently in remission , most recent episode unspecified F31.70 [place] [address] [address] Dec, Bipolar disorder, currently in remission , most recent episode unspecified F31.70 [facility] [address] [address] Dec, Bipolar disorder, currently in remission , most recent episode unspecified F31.70 [facility] [address] [place] [id number] [place] [address] Dec, [facility] [address] [address] Dec, Bipolar disorder, currently in remission , most recent episode unspecified F31.70 [facility] [address] [address] Nov, Bipolar disorder, currently in remission , most recent episode unspecified F31.70 [facility] [address] [address] Nov, [place] [address] [address] Nov, [facility] [address] [address] Nov, Bipolar disorder, currently in remission , most recent episode unspecified F31.70 [facility] [address] [place] [id number] [place] [address] Nov, Bipolar disorder, currently in remission , most recent episode unspecified F31.70 [place] [address] [address] Oct, High risk medication use Z79.899 ; Bipol ar disorder F31.9 ; Moderate intellectual disability F71 and Attention-deficit hyperactivity disorder, predominantly inattentive type F90.0 [facility] [address] [place] [id number] [place] [address] Oct, [facility] [address] [address] Sep, Bipolar disorder, currently in remission , most recent episode unspecified F31.70 [facility] [address] [facility] [id number] [place] [id number] Sep, 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 status requiring routine preventive dental care K08.9 and Arrested dental caries K02.3 [facility] [address] [place] [id number] [place] [address] Sep, Bipolar disorder, currently in remission , most recent episode unspecified F31.70 ; Moderate intellectual disability F71 and Attention-deficit hyperactivity disorder, predominantly inattentive type F90.0 [facility] [address] [address] Sep, Bipolar disorder, currently in remission , most recent episode unspecified F31.70 [facility] [address] [address] Aug, Bipolar disorder, currently in remission , most recent episode unspecified F31.70 [facility] [address] [address] Jul, Bipolar disorder, currently in remission , most recent episode unspecified F31.70 [facility] [address] [address] Jul, Bipolar disorder, currently in remission , most recent episode unspecified F31.70 [facility] [address] [address] Jun, [facility] [address] [address] Jun, Bipolar disorder, currently in remission , most recent episode unspecified F31.70 [facility] [address] [place] [id number] [place] [id number] Jun, Dental examination Z01.20 and Dental car ies K02.9 [facility] [address] [place] [id number] [place] [address] May, Bipolar disorder, currently in remission , most recent episode unspecified F31.70 [facility] [address] [address] May, Bipolar disorder, currently in remission , most recent episode unspecified F31.70 [facility] [address] [address] May, Bipolar disorder, currently in remission , most recent episode unspecified F31.70 ; Moderate intellectual disability F71 and Attention-deficit hyperactivity disorder, predominantly inattentive type F90.0 [facility] [address] [address] Apr, Bipolar disorder, unspecified F31.9 [facility] [address] [address] Apr, [facility] [address] [address] Apr, [facility] [address] [address] Apr, [facility] [address] [address] March, [facility] [address] [address] March, Bipolar disorder, currently in remission , most recent episode unspecified F31.70 ; Moderate intellectual disability F71 and Attention-deficit hyperactivity disorder, predominantly inattentive type F90.0 [facility] [address] [address] Feb, [facility] [address] [id number] Feb, Dental examination Z01.20 [facility] [address] [address] Jan, [facility] [address] [address] Jan, [facility] [address] [address] Dec, [facility] [address] [address] Nov, [facility] [address] [id number] Nov, Encounter for dental exam and cleaning w /o abnormal findings Z01.20 [facility] [address] [id number] Nov, Dental examination Z01.20 [facility] [address] [place] [address] Oct, [facility] [address] [address] Oct, Bipolar disorder, currently in remission , most recent episode unspecified F31.70 ; Moderate intellectual disability F71 and Attention-deficit hyperactivity disorder, predominantly inattentive type F90.0 [facility] [address] [address] Sep, [facility] [address] [address] Sep, [facility] [address] [address] Aug, [facility] [address] [address] Aug, Attention-deficit hyperactivity disorder , predominantly inattentive type F90.0 ; Moderate intellectual disability F71 and Bipolar disorder F31.9 [facility] [address] [place] [id number] [place] [id number] Jul, Dental examination Z01.20 and Dental car ies K02.9 [facility] [address] [address] Jul, [facility] [address] [address] Jun, Bipolar disorder F31.9 ; Attention-defic it hyperactivity disorder, predominantly inattentive type F90.0 and Moderate intellectual disability F71 [facility] [address] [address] Jun, [facility] [address] [address] May, [facility] [address] [address] Apr, [facility] [address] [address] March, Intermittent explosive disorder F63.81 ; Attention deficit hyperactivity disorder F90.9 and Bipolar disorder F31.9 [facility] [address] [address] Feb, [facility] [address] [address] Jan, [facility] [address] [address] Dec, Encounter for immunization Z23 [facility] [address] [address] Dec, Intermittent explosive disorder F63.81 ; Attention deficit hyperactivity disorder F90.9 and Bipolar disorder, currently in remission, most recent episode unspecified F31.70 [facility] [address] [address] Nov, [facility] [address] [address] Oct, [facility] [address] [address] Oct, [facility] [address] [place] [id number] [place] [id number] Oct, Dental examination Z01.20 [facility] [address] [address] Sep, [facility] [address] [address] Sep, [facility] [address] [address] Sep, Intermittent explosive disorder F63.81 ; Bipolar disorder F31.9 and Attention deficit hyperactivity disorder F90.9 [facility] [address] [address] Aug, [facility] [address] [address] Aug, [facility] [address] [address] Aug, [facility] [address] [id number] [place] [address] 14 Aug, 2016 Attention deficit hyperactivity disorder F90.9 [facility] [address] [place] [id number] [place] [address] 16 Jul, 2016 [facility] [address] [id number] [place] [address] Jun, [facility] [address] [place] [id number] [place] [address] May, [facility] [address] [id number] [place] [address] Apr, [facility] [address] [place] [id number] [place] [address] Apr, Bipolar disorder F31.9 ; Attention defic it hyperactivity disorder F90.9 and Intermittent explosive disorder F63.81 [facility] [address] [place] [id number] [place] [address] March, [facility] [address] [place] [id number] [place] [address] Feb, [facility] [address] [place] [id number] [place] [address] Feb, [facility] [address] [place] [id number] [place] [address] Jan, [facility] [address] [place] [id number] [place] [address] Jan, [facility] [address] [place] [id number] [place] [address] Dec, [facility] [address] [id number] [place] [address] Nov, [facility] [address] [place] [id number] [place] [address] Nov, [facility] [address] [id number] [place] [address] Nov, Attention deficit hyperactivity disorder F90.9 ; Intermittent explosive disorder F63.81 and Bipolar disorder F31.9 [facility] [address] [address] Oct, [facility] [address] [address] Oct, [facility] [address] [address] Sep, [facility] [address] [address] Aug, [facility] [address] [address] Jul, [facility] [address] [address] Jul, [facility] [address] [address] Jul, Anxiety, generalized 300.02 ; Bipolar di sorder, unspecified 296.80 ; 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.00 ; 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 and Impulse control disorder, unspecified 312.30 [facility] [address] [address] Jul, [facility] [address] [address] Jun, [facility] [address] [address] May, [facility] [address] [address] Apr, [facility] [address] [address] Apr, Bipolar disorder, unspecified 296.80 ; G eneralized anxiety disorder 300.02 and 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.00 [facility] [address] [address] Apr, [facility] [address] [address] March, [facility] [address] [id number] [place] [address] March, [facility] [address] [id number] [place] [address] March, [facility] [address] [id number] [place] [address] March, [facility] [address] [id number] [place] [address] Feb, [facility] [address] [id number] [place] [address] Feb, [facility] [address] [id number] [place] [address] Jan, [facility] [address] [id number] [place] [address] Jan, [facility] [address] [id number] [place] [address] Jan, [facility] [address] [id number] [place] [address] Jan, [facility] [address] [id number] [place] [address] Jan, [facility] [address] [id number] [place] [address] Dec, [facility] [address] [id number] [place] [address] Dec, [facility] [address] [id number] [place] [address] Nov, [facility] [address] [id number] [place] [address] Nov, [facility] [address] [id number] [place] [address] Nov, [facility] [address] [id number] [place] [address] Oct, [facility] [address] [id number] [place] [address] Oct, [facility] [address] [id number] [place] [address] Oct, [facility] [address] [id number] [place] [address] Oct, [facility] [address] [id number] [place] [address] Oct, [facility] [address] [id number] [place] [address] Oct, [facility] [address] [id number] [place] [address] Sep, [facility] [address] [id number] [place] [address] Sep, [facility] [address] [id number] [place] [address] Sep, [facility] [address] [id number] [place] [address] Aug, [facility] [address] [id number] [place] [address] Aug, [facility] [address] [id number] [place] [address] Jul, [facility] [address] [id number] [place] [address] Jul, [facility] [address] [id number] [place] [address] Jun, [facility] [address] [id number] [place] [address] Jun, [facility] [address] [id number] [place] [address] Jun, [facility] [address] [id number] [place] [address] Jun, [facility] [address] [id number] [place] [address] May, [facility] [address] [id number] [place] [address] May, [facility] [address] [id number] [place] [address] May, [facility] [address] [id number] [place] [address] Apr, [facility] [address] [id number] [place] [address] Apr, [facility] [address] [id number] [place] [address] Apr, [facility] [address] [id number] [place] [address] Apr, [facility] [address] [id number] [place] [address] March, [facility] [address] [id number] [place] [address] March, [facility] [address] [id number] [place] [address] March, [facility] [address] [id number] [place] [address] March, [facility] [address] [id number] [place] [address] Feb, [facility] [address] [id number] [place] [address] Feb, [facility] [address] [id number] [place] [address] Jan, [facility] [address] [id number] [place] [address] Jan, [facility] [address] [id number] [place] [address] Jan, [facility] [address] [id number] [place] [address] Jan, [facility] [address] [id number] [place] [address] Jan, [facility] [address] [id number] [place] [address] Jan, [facility] [address] [id number] [place] [address] Jan, [facility] [address] [id number] [place] [address] Jan, [facility] [address] [id number] [place] [address] Dec, [facility] [address] [id number] [place] [address] Dec, [facility] [address] [id number] [place] [address] Dec, [facility] [address] [id number] [place] [address] Dec, [facility] [address] [id number] [place] [address] Nov, [facility] [address] [id number] [place] [address] Nov, [facility] [address] [id number] [place] [address] Oct, [facility] [address] [id number] [place] [address] Oct, [facility] [address] [id number] [place] [address] Oct, [facility] [address] [id number] [place] [address] Oct, [facility] [address] [id number] [place] [address] Sep, [facility] [address] [id number] [place] [address] Sep, [facility] [address] [id number] [place] [address] Sep, [facility] [address] [id number] [place] [address] 07 Sep, 2013 [facility] [address] [id number] [place] [address] Aug, [facility] [address] [id number] [place] [address] Aug, [facility] [address] [id number] [place] [address] Aug, [facility] [address] [id number] [place] [address] Jul, [facility] [address] [id number] [place] [address] Jul, [facility] [address] [id number] [place] [address] Jun, [facility] [address] [id number] [place] [address] Jun, [facility] [address] [id number] [place] [address] May, [facility] [address] [id number] [place] [address] May, [facility] [address] [id number] [place] [address] Apr, [facility] [address] [id number] [place] [address] March, [facility] [address] [id number] [place] [address] March, [facility] [address] [id number] [place] [address] Feb, [facility] [id number] [place] [address] Jan, [facility] [address] [id number] [place] [address] Jan, [facility] [address] [id number] [place] [address] Dec, [facility] [address] [id number] [place] [address] Dec, [facility] [address] [id number] [place] [address] Nov, [facility] [address] [id number] [place] [address] Nov, [facility] [address] [id number] [place] [address] Nov, [facility] [address] [id number] [place] [address] Nov, [facility] [address] [facility] [id number] [place] [address] Nov, [facility] [address] [facility] [id number] [place] [address] Oct, [facility] [id number] [place] [address] Oct, [facility] [address] [id number] [place] [address] Oct, [facility] [address] [facility] [id number] [place] [address] Oct, [facility] [address] [id number] [place] [address] Oct, [facility] [address] [facility] [id number] [place] [address] Oct, [facility] [address] [facility] [id number] [place] [address] 05 Oct, 2012 [facility] [address] [id number] [place] [address] Oct, [facility] [address] [id number] [place] [address] Sep, [facility] [address] [facility] [id number] [place] [address] Sep, [facility] [address] [facility] [id number] [place] [address] Sep, [facility] [address] [facility] [id number] [place] [address] Aug, [facility] [address] [id number] [place] [address] Aug, [facility] [address] [facility] [id number] [place] [address] Aug, [facility] [address] [facility] [id number] [place] [address] Aug, [facility] [address] [facility] [id number] [place] [address] Aug, [facility] [address] [facility] [id number] [place] [address] Jul, [facility] [address] [facility] [id number] [place] [address] Jul, [facility] [address] [facility] [id number] [place] [address] Jun, [facility] [address] [id number] [place] [address] May, [facility] [address] [facility] [id number] [place] [address] May, [facility] [address] [facility] [id number] [place] [address] Apr, [facility] [address] [facility] [id number] [place] [address] March, [facility] [address] [facility] [id number] [place] [address] March, [facility] [address] [id number] [place] [address] March, [facility] [address] [id number] [place] [address] March, [facility] [facility] [address] [id number] [place] [address] Feb, [facility] [id number] [place] [address] Feb, [facility] [id number] [place] [address] Jan, [facility] [id number] [place] [address] Dec, [facility] [id number] [place] [address] Dec, [facility] [id number] [place] [address] Dec, [facility] [id number] [place] [address] Nov, [facility] [address] [address] Nov, [facility] [id number] [place] [address] Nov, [facility] [id number] [place] [address] Oct, [facility] [id number] [place] [address] Sep, [facility] [address] [address] Aug, [facility] [id number] [place] [address] Aug, [facility] [id number] [place] [address] May, [facility] [id number] [place] [address] Sep, [facility] [address] [address] Sep, IMMUNIZATIONS No Known Immunizations SOCIAL HISTORY [...]
--- OUTSIDE RECORDS SUMMARY | 2020-03-18 15:25 | XMS REPORT ---
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 Active 82750035 Problem Attention-deficit hyperactiv ity disorder, predominantly inattentive type F90.0 Active 54651060 Problem Intermittent explosive disorder F63.81 Active 79822168 Problem Bipolar disorder, currently in remission, most recent episode unspecified F31.70 Active [id number] ALLERGIES No Information ENCOUNTERS Encounter Location Date Diagnosis [place] [address] [address] Oct, [address] [address] Sep, Intermittent explosive disorder F63.81 ; Bipolar disorder, currently in remission, most recent episode unspecified F31.70 ; Attention-deficit hyperactivity disorder, predominantly inattentive type F90.0 ; Moderate intellectual disability F71 ; Encounter to establish care Z76.89 and Abrasion, left lower leg, sequela S80.812S [place] [address] [address] 15 Sep, [address] [address] Sep, Annual physical exam Z00.00 ; Abrasion o f left lower leg, initial encounter S80.812A ; Cellulitis of left lower leg L03.116 ; Attention deficit hyperactivity disorder F90.9 ; Intermittent explosive disorder F63.81 and Intellectual disability F79 [place] [address] [address] Jul, Bipolar disorder F31.9 [place] [address] [address] Jul, Acute gastroenteritis K52.9 ; Intellectu al disability F79 and Bipolar disorder F31.9 [place] [address] [address] Jun, [place] [address] [address] Jun, Bipolar disorder F31.9 [place] [address] [address] May, Bipolar disorder F31.9 ; Intellectual di sability F79 and Attention- deficit hyperactivity disorder, predominantly inattentive type F90.0 [place] [address] [address] May, [place] [address] [address] May, Bipolar disorder F31.9 [place] [address] [address] May, Bipolar disorder F31.9 ; Attention-defic it hyperactivity disorder, predominantly inattentive type F90.0 and Moderate intellectual disability F71 [place] [address] [address] Apr, Bipolar disorder F31.9 [place] [address] [address] Apr, Bipolar disorder F31.9 and High risk med ication use Z79.899 [place] [address] [address] March, Bipolar disorder F31.9 and High risk med ication use Z79.899 [place] [address] [address] March, Bipolar disorder F31.9 [facility] [address] [id number] [place] [address] March, Caries K02.9 [place] [address] [address] March, Bipolar disorder F31.9 [facility] [address] [address] March, Bipolar disorder F31.9 [facility] [address] [address] Feb, Bipolar disorder F31.9 [facility] [address] [address] Feb, Bipolar disorder F31.9 ; Attention-defic it hyperactivity disorder, predominantly inattentive type F90.0 and Moderate intellectual disability F71 [facility] [address] [address] Jan, Bipolar disorder F31.9 [facility] [address] [address] Jan, Bipolar disorder F31.9 [facility] [address] [address] Jan, Dental examination Z01.20 ; 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 status requiring routine preventive dental care K08.9 and Caries K02.9 [place] [address] [address] Jan, [facility] [address] [address] Jan, Bipolar disorder F31.9 ; Moderate intell ectual disability F71 and Attention-deficit hyperactivity disorder, predominantly inattentive type F90.0 [place] [address] [address] Dec, Bipolar disorder, currently in remission , most recent episode unspecified F31.70 [place] [address] [address] Dec, Bipolar disorder, currently in remission , most recent episode unspecified F31.70 [facility] [address] [address] Dec, Bipolar disorder, currently in remission , most recent episode unspecified F31.70 [facility] [address] [place] [id number] [place] [address] Dec, [facility] [address] [address] Dec, Bipolar disorder, currently in remission , most recent episode unspecified F31.70 [facility] [address] [address] Nov, Bipolar disorder, currently in remission , most recent episode unspecified F31.70 [facility] [address] [address] Nov, [place] [address] [address] Nov, [facility] [address] [address] Nov, Bipolar disorder, currently in remission , most recent episode unspecified F31.70 [facility] [address] [place] [id number] [place] [address] Nov, Bipolar disorder, currently in remission , most recent episode unspecified F31.70 [place] [address] [address] Oct, High risk medication use Z79.899 ; Bipol ar disorder F31.9 ; Moderate intellectual disability F71 and Attention-deficit hyperactivity disorder, predominantly inattentive type F90.0 [facility] [address] [place] [id number] [place] [address] Oct, [facility] [address] [address] Sep, Bipolar disorder, currently in remission , most recent episode unspecified F31.70 [facility] [address] [facility] [place] [id number] Sep, 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 status requiring routine preventive dental care K08.9 and Arrested dental caries K02.3 [facility] [address] [place] [id number] [place] [address] Sep, Bipolar disorder, currently in remission , most recent episode unspecified F31.70 ; Moderate intellectual disability F71 and Attention-deficit hyperactivity disorder, predominantly inattentive type F90.0 [facility] [address] [address] Sep, Bipolar disorder, currently in remission , most recent episode unspecified F31.70 [facility] [address] [address] Aug, Bipolar disorder, currently in remission , most recent episode unspecified F31.70 [facility] [address] [address] Jul, Bipolar disorder, currently in remission , most recent episode unspecified F31.70 [facility] [address] [address] Jul, Bipolar disorder, currently in remission , most recent episode unspecified F31.70 [facility] [address] [address] Jun, [facility] [address] [address] Jun, Bipolar disorder, currently in remission , most recent episode unspecified F31.70 [facility] [address] [place] [id number] [place] [id number] Jun, Dental examination Z01.20 and Dental car ies K02.9 [facility] [address] [place] [id number] [place] [address] May, Bipolar disorder, currently in remission , most recent episode unspecified F31.70 [facility] [address] [address] May, Bipolar disorder, currently in remission , most recent episode unspecified F31.70 [facility] [address] [address] May, Bipolar disorder, currently in remission , most recent episode unspecified F31.70 ; Moderate intellectual disability F71 and Attention-deficit hyperactivity disorder, predominantly inattentive type F90.0 [facility] [address] [address] Apr, Bipolar disorder, unspecified F31.9 [facility] [address] [address] Apr, [facility] [address] [address] Apr, [facility] [address] [address] Apr, [facility] [address] [address] March, [facility] [address] [address] March, Bipolar disorder, currently in remission , most recent episode unspecified F31.70 ; Moderate intellectual disability F71 and Attention-deficit hyperactivity disorder, predominantly inattentive type F90.0 [facility] [address] [address] Feb, [facility] [address] [id number] Feb, Dental examination Z01.20 [facility] [address] [address] Jan, [facility] [address] [address] Jan, [facility] [address] [address] Dec, [facility] [address] [address] Nov, [facility] [address] [id number] Nov, Encounter for dental exam and cleaning w /o abnormal findings Z01.20 [facility] [address] [id number] Nov, Dental examination Z01.20 [facility] [address] [place] [address] Oct, [facility] [address] [address] Oct, Bipolar disorder, currently in remission , most recent episode unspecified F31.70 ; Moderate intellectual disability F71 and Attention-deficit hyperactivity disorder, predominantly inattentive type F90.0 [facility] [address] [address] Sep, [facility] [address] [address] Sep, [facility] [address] [address] Aug, [facility] [address] [address] Aug, Attention-deficit hyperactivity disorder , predominantly inattentive type F90.0 ; Moderate intellectual disability F71 and Bipolar disorder F31.9 [facility] [address] [place] [id number] [place] [id number] Jul, Dental examination Z01.20 and Dental car ies K02.9 [facility] [address] [address] Jul, [facility] [address] [address] Jun, Bipolar disorder F31.9 ; Attention-defic it hyperactivity disorder, predominantly inattentive type F90.0 and Moderate intellectual disability F71 [facility] [address] [address] Jun, [facility] [address] [address] May, [facility] [address] [address] Apr, [facility] [address] [address] March, Intermittent explosive disorder F63.81 ; Attention deficit hyperactivity disorder F90.9 and Bipolar disorder F31.9 [facility] [address] [address] Feb, [facility] [address] [address] Jan, [facility] [address] [address] Dec, Encounter for immunization Z23 [facility] [address] [address] Dec, Intermittent explosive disorder F63.81 ; Attention deficit hyperactivity disorder F90.9 and Bipolar disorder, currently in remission, most recent episode unspecified F31.70 [facility] [address] [address] Nov, [facility] [address] [address] Oct, [facility] [address] [address] Oct, [facility] [address] [place] [id number] [place] [id number] Oct, Dental examination Z01.20 [facility] [address] [address] Sep, [facility] [address] [address] Sep, [facility] [address] [address] Sep, Intermittent explosive disorder F63.81 ; Bipolar disorder F31.9 and Attention deficit hyperactivity disorder F90.9 [facility] [address] [address] Aug, [facility] [address] [address] Aug, [facility] [address] [address] Aug, [facility] [address] [id number] [place] [address] 14 Aug, 2016 Attention deficit hyperactivity disorder F90.9 [facility] [address] [place] [id number] [place] [address] 16 Jul, 2016 [facility] [address] [id number] [place] [address] Jun, [facility] [address] [place] [id number] [place] [address] May, [facility] [address] [id number] [place] [address] Apr, [facility] [address] [place] [id number] [place] [address] Apr, Bipolar disorder F31.9 ; Attention defic it hyperactivity disorder F90.9 and Intermittent explosive disorder F63.81 [facility] [address] [place] [id number] [place] [address] March, [facility] [address] [place] [id number] [place] [address] Feb, [facility] [address] [place] [id number] [place] [address] Feb, [facility] [address] [place] [id number] [place] [address] Jan, [facility] [address] [place] [id number] [place] [address] Jan, [facility] [address] [place] [id number] [place] [address] Dec, [facility] [address] [id number] [place] [address] Nov, [facility] [address] [place] [id number] [place] [address] Nov, [facility] [address] [id number] [place] [address] Nov, Attention deficit hyperactivity disorder F90.9 ; Intermittent explosive disorder F63.81 and Bipolar disorder F31.9 [facility] [address] [address] Oct, [facility] [address] [address] Oct, [facility] [address] [address] Sep, [facility] [address] [address] Aug, [facility] [address] [address] Jul, [facility] [address] [address] Jul, [facility] [address] [address] Jul, Anxiety, generalized 300.02 ; Bipolar di sorder, unspecified 296.80 ; 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.00 ; 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 and Impulse control disorder, unspecified 312.30 [facility] [address] [address] Jul, [facility] [address] [address] Jun, [facility] [address] [address] May, [facility] [address] [address] Apr, [facility] [address] [address] Apr, Bipolar disorder, unspecified 296.80 ; G eneralized anxiety disorder 300.02 and 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.00 [facility] [address] [address] Apr, [facility] [address] [address] March, [facility] [address] [id number] [place] [address] March, [facility] [address] [id number] [place] [address] March, [facility] [address] [id number] [place] [address] March, [facility] [address] [id number] [place] [address] Feb, [facility] [address] [id number] [place] [address] Feb, [facility] [address] [id number] [place] [address] Jan, [facility] [address] [id number] [place] [address] Jan, [facility] [address] [id number] [place] [address] Jan, [facility] [address] [id number] [place] [address] Jan, [facility] [address] [id number] [place] [address] Jan, [facility] [address] [id number] [place] [address] Dec, [facility] [address] [id number] [place] [address] Dec, [facility] [address] [id number] [place] [address] Nov, [facility] [address] [id number] [place] [address] Nov, [facility] [address] [id number] [place] [address] Nov, [facility] [address] [id number] [place] [address] Oct, [facility] [address] [id number] [place] [address] Oct, [facility] [address] [facility] [id number] [place] [address] Oct, [facility] [address] [id number] [place] [address] Oct, [facility] [address] [id number] [place] [address] Oct, [facility] [address] [id number] [place] [address] Oct, [facility] [address] [id number] [place] [address] Sep, [facility] [address] [id number] [place] [address] Sep, [facility] [address] [id number] [place] [address] Sep, [facility] [address] [id number] [place] [address] Aug, [facility] [address] [id number] [place] [address] Aug, [facility] [address] [id number] [place] [address] Jul, [facility] [address] [id number] [place] [address] Jul, [facility] [address] [id number] [place] [address] Jun, [facility] [address] [id number] [place] [address] Jun, [facility] [address] [id number] [place] [address] Jun, [facility] [address] [id number] [place] [address] Jun, [facility] [address] [id number] [place] [address] May, [facility] [address] [facility] [id number] [facility] [place] [address] May, [facility] [address] [facility] [id number] [place] [address] May, [facility] [address] [facility] [id number] [place] [address] Apr, [facility] [address] [id number] [place] [address] Apr, [facility] [address] [facility] [id number] [place] [address] Apr, [facility] [address] [facility] [id number] [place] [address] Apr, [facility] [address] [id number] [place] [address] March, [facility] [address] [id number] [place] [address] March, [facility] [address] [id number] [place] [address] March, [facility] [address] [id number] [place] [address] March, [facility] [address] [id number] [place] [address] Feb, [facility] [address] [id number] [place] [address] Feb, [facility] [address] [id number] [place] [address] Jan, [facility] [address] [facility] [id number] [place] [address] Jan, [facility] [address] [id number] [place] [address] Jan, [facility] [address] [id number] [place] [address] Jan, [facility] [address] [id number] [place] [address] Jan, [facility] [address] [facility] [id number] [place] [address] Jan, [facility] [address] [id number] [place] [address] Jan, [facility] [address] [id number] [place] [address] Jan, [facility] [address] [id number] [place] [address] Dec, [facility] [address] [facility] [id number] [place] [address] Dec, [facility] [address] [id number] [place] [address] Dec, [facility] [address] [id number] [place] [address] Dec, [facility] [address] [id number] [place] [address] Nov, [facility] [address] [id number] [place] [address] Nov, [facility] [address] [id number] [place] [address] Oct, [facility] [address] [id number] [place] [address] Oct, [facility] [address] [id number] [place] [address] Oct, [facility] [address] [id number] [place] [address] Oct, [facility] [address] [id number] [place] [address] Sep, [facility] [address] [id number] [place] [address] Sep, [facility] [address] [id number] [place] [address] Sep, [facility] [address] [id number] [place] [address] 07 Sep, 2013 [facility] [address] [id number] [place] [address] Aug, [facility] [address] [id number] [place] [address] Aug, [facility] [address] [id number] [place] [address] Aug, [facility] [address] [id number] [place] [address] Jul, [facility] [address] [id number] [place] [address] Jul, [facility] [address] [id number] [place] [address] Jun, [facility] [address] [id number] [place] [address] Jun, [facility] [address] [id number] [place] [address] May, [facility] [address] [id number] [place] [address] May, [facility] [address] [id number] [place] [address] Apr, [facility] [address] [id number] [place] [address] March, [facility] [address] [id number] [place] [address] March, [facility] [address] [id number] [place] [address] Feb, [facility] [id number] [place] [address] Jan, [facility] [address] [id number] [place] [address] Jan, [facility] [address] [id number] [place] [address] Dec, [facility] [address] [id number] [place] [address] Dec, [facility] [address] [id number] [place] [address] Nov, [facility] [address] [id number] [place] [address] Nov, [facility] [address] [id number] [place] [address] Nov, [facility] [address] [id number] [place] [address] Nov, [facility] [address] [id number] [place] [address] Nov, [facility] [address] [id number] [place] [address] Oct, [facility] [address] [id number] [place] [address] Oct, [facility] [address] [id number] [place] [address] Oct, [facility] [address] [id number] [place] [address] Oct, [facility] [address] [id number] [place] [address] Oct, [facility] [address] [id number] [place] [address] Oct, [facility] [address] [id number] [place] [address] 05 Oct, 2012 [facility] [address] [id number] [place] [address] Oct, [facility] [address] [id number] [place] [id number] Sep, [facility] [address] [id number] [place] [address] Sep, [facility] [address] [id number] [place] [address] Sep, [facility] [address] [id number] [place] [address] Aug, [facility] [address] [id number] [place] [address] Aug, [facility] [address] [id number] [place] [address] Aug, [facility] [address] [id number] [place] [address] Aug, [facility] [address] [id number] [place] [address] Aug, [facility] [address] [id number] [place] [address] Jul, [facility] [address] [id number] [place] [address] Jul, [facility] [address] [id number] [place] [address] Jun, [facility] [address] [id number] [place] [address] May, [facility] [address] [id number] [place] [address] May, [facility] [address] [id number] [place] [address] Apr, [facility] [address] [id number] [place] [address] March, [facility] [address] [id number] [place] [address] March, [facility] [address] [id number] [place] [address] March, [facility] [address] [id number] [place] [address] March, [facility] [address] [id number] [place] [address] Feb, [facility] [id number] [place] [address] Feb, [facility] [id number] [place] [address] Jan, [facility] [id number] [place] [address] Dec, [facility] [id number] [place] [address] Dec, [facility] [id number] [place] [address] Dec, [facility] [id number] [place] [address] Nov, [facility] [address] [address] Nov, [facility] [id number] [place] [address] Nov, [facility] [id number] [place] [address] Oct, [facility] [id number] [place] [address] Sep, [facility] [address] [address] Aug, [facility] [id number] [place] [address] Aug, [facility] [id number] [place] [address] May, [facility] [id number] [place] [address] Sep, [facility] [address] [address] Sep, IMMUNIZATIONS No Known Immunizations SOCIAL HISTORY [...]
--- OUTSIDE RECORDS SUMMARY | 2020-03-18 15:25 | XMS REPORT ---
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 Active 31513311 Problem Attention-deficit hyperactiv ity disorder, predominantly inattentive type F90.0 Active 93434667 Problem Intermittent explosive disorder F63.81 Active 19194155 Problem Bipolar disorder, currently in remission, most recent episode unspecified F31.70 Active [id number] ALLERGIES No Information ENCOUNTERS Encounter Location Date Diagnosis [place] [address] [address] Oct, [place] [address] [address] Sep, Intermittent explosive disorder F63.81 ; Bipolar disorder, currently in remission, most recent episode unspecified F31.70 ; Attention-deficit hyperactivity disorder, predominantly inattentive type F90.0 ; Moderate intellectual disability F71 ; Encounter to establish care Z76.89 and Abrasion, left lower leg, sequela S80.812S [place] [address] [address] Sep, [place] [address] [address] 06 Sep, 2019 Annual physical exam Z00.00 ; Abrasion o f left lower leg, initial encounter S80.812A ; Cellulitis of left lower leg L03.116 ; Attention deficit hyperactivity disorder F90.9 ; Intermittent explosive disorder F63.81 and Intellectual disability F79 [place] [address] [address] Jul, Bipolar disorder F31.9 [place] [address] [address] Jul, Acute gastroenteritis K52.9 ; Intellectu al disability F79 and Bipolar disorder F31.9 [place] [address] [address] Jun, [place] [address] [address] Jun, Bipolar disorder F31.9 [place] [address] [address] May, Bipolar disorder F31.9 ; Intellectual di sability F79 and Attention- deficit hyperactivity disorder, predominantly inattentive type F90.0 [place] [address] [address] May, [place] [address] [address] May, Bipolar disorder F31.9 [place] [address] [address] May, Bipolar disorder F31.9 ; Attention-defic it hyperactivity disorder, predominantly inattentive type F90.0 and Moderate intellectual disability F71 [place] [address] [address] Apr, Bipolar disorder F31.9 [place] [address] [address] Apr, Bipolar disorder F31.9 and High risk med ication use Z79.899 [place] [address] [address] March, Bipolar disorder F31.9 and High risk med ication use Z79.899 [place] [address] [address] March, Bipolar disorder F31.9 [facility] [id number] [place] [address] March, Caries K02.9 [facility] [address] [place] [id number] [place] [address] March, Bipolar disorder F31.9 [facility] [address] [address] March, Bipolar disorder F31.9 [facility] [address] [address] Feb, Bipolar disorder F31.9 [facility] [address] [address] Feb, Bipolar disorder F31.9 ; Attention-defic it hyperactivity disorder, predominantly inattentive type F90.0 and Moderate intellectual disability F71 [place] [address] [address] Jan, Bipolar disorder F31.9 [place] [address] [address] Jan, Bipolar disorder F31.9 [place] [address] [address] Jan, Dental examination Z01.20 ; 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 status requiring routine preventive dental care K08.9 and Caries K02.9 [place] [address] [address] Jan, [place] [address] [address] Jan, Bipolar disorder F31.9 ; Moderate intell ectual disability F71 and Attention-deficit hyperactivity disorder, predominantly inattentive type F90.0 [place] [address] [address] Dec, Bipolar disorder, currently in remission , most recent episode unspecified F31.70 [facility] [address] [address] Dec, Bipolar disorder, currently in remission , most recent episode unspecified F31.70 [place] [address] [address] Dec, Bipolar disorder, currently in remission , most recent episode unspecified F31.70 [facility] [address] [address] Dec, [facility] [address] [address] Dec, Bipolar disorder, currently in remission , most recent episode unspecified F31.70 [facility] [address] [address] Nov, Bipolar disorder, currently in remission , most recent episode unspecified F31.70 [facility] [address] [address] Nov, [facility] [address] [address] Nov, [facility] [address] [address] Nov, Bipolar disorder, currently in remission , most recent episode unspecified F31.70 [facility] [address] [address] Nov, Bipolar disorder, currently in remission , most recent episode unspecified F31.70 [facility] [address] [address] Oct, High risk medication use Z79.899 ; Bipol ar disorder F31.9 ; Moderate intellectual disability F71 and Attention-deficit hyperactivity disorder, predominantly inattentive type F90.0 [facility] [address] [place] [id number] [place] [address] Oct, [facility] [address] [address] Sep, Bipolar disorder, currently in remission , most recent episode unspecified F31.70 [facility] [id number] [place] [id number] Sep, 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 status requiring routine preventive dental care K08.9 and Arrested dental caries K02.3 [facility] [address] [address] Sep, Bipolar disorder, currently in remission , most recent episode unspecified F31.70 ; Moderate intellectual disability F71 and Attention-deficit hyperactivity disorder, predominantly inattentive type F90.0 [facility] [address] [address] Sep, Bipolar disorder, currently in remission , most recent episode unspecified F31.70 [place] [address] [address] Aug, Bipolar disorder, currently in remission , most recent episode unspecified F31.70 [place] [address] [address] Jul, Bipolar disorder, currently in remission , most recent episode unspecified F31.70 [place] [address] [address] Jul, Bipolar disorder, currently in remission , most recent episode unspecified F31.70 [place] [address] [address] Jun, [place] [address] [address] Jun, Bipolar disorder, currently in remission , most recent episode unspecified F31.70 [facility] [address] [id number] [place] [id number] Jun, Dental examination Z01.20 and Dental car ies K02.9 [facility] [address] [address] May, Bipolar disorder, currently in remission , most recent episode unspecified F31.70 [facility] [address] [address] May, Bipolar disorder, currently in remission , most recent episode unspecified F31.70 [facility] [address] [address] May, Bipolar disorder, currently in remission , most recent episode unspecified F31.70 ; Moderate intellectual disability F71 and Attention-deficit hyperactivity disorder, predominantly inattentive type F90.0 [facility] [address] [address] Apr, Bipolar disorder, unspecified F31.9 [facility] [address] [address] Apr, [facility] [address] [address] Apr, [facility] [address] [address] Apr, [facility] [address] [address] March, [facility] [address] [address] March, Bipolar disorder, currently in remission , most recent episode unspecified F31.70 ; Moderate intellectual disability F71 and Attention-deficit hyperactivity disorder, predominantly inattentive type F90.0 [facility] [address] [address] Feb, [facility] [address] [id number] Feb, Dental examination Z01.20 [facility] [address] [address] Jan, [facility] [address] [address] Jan, [facility] [address] [address] Dec, [facility] [address] [address] Nov, [facility] [address] [id number] Nov, Encounter for dental exam and cleaning w /o abnormal findings Z01.20 [facility] [address] [place] [id number] Nov, Dental examination Z01.20 [facility] [address] [address] Oct, [facility] [address] [address] Oct, Bipolar disorder, currently in remission , most recent episode unspecified F31.70 ; Moderate intellectual disability F71 and Attention-deficit hyperactivity disorder, predominantly inattentive type F90.0 [facility] [address] [address] Sep, [facility] [address] [address] Sep, [facility] [address] [address] Aug, [facility] [address] [address] Aug, Attention-deficit hyperactivity disorder , predominantly inattentive type F90.0 ; Moderate intellectual disability F71 and Bipolar disorder F31.9 [facility] [address] [id number] Jul, Dental examination Z01.20 and Dental car ies K02.9 [facility] [address] [address] Jul, [facility] [address] [address] Jun, Bipolar disorder F31.9 ; Attention-defic it hyperactivity disorder, predominantly inattentive type F90.0 and Moderate intellectual disability F71 [facility] [address] [address] Jun, [facility] [address] [address] May, [facility] [address] [address] Apr, [facility] [address] [address] March, Intermittent explosive disorder F63.81 ; Attention deficit hyperactivity disorder F90.9 and Bipolar disorder F31.9 [facility] [address] [place] [id number] [place] [address] Feb, [facility] [address] [address] Jan, [facility] [address] [address] Dec, Encounter for immunization Z23 [facility] [address] [address] Dec, Intermittent explosive disorder F63.81 ; Attention deficit hyperactivity disorder F90.9 and Bipolar disorder, currently in remission, most recent episode unspecified F31.70 [facility] [address] [place] [id number] [place] [address] Nov, [facility] [address] [address] Oct, [facility] [address] [place] [address] [id number] [place] [address] Oct, [facility] [id number] [place] [id number] Oct, Dental examination Z01.20 [facility] [address] [place] [id number] [place] [address] Sep, [facility] [address] [address] Sep, [facility] [address] [place] [id number] [place] [address] Sep, Intermittent explosive disorder F63.81 ; Bipolar disorder F31.9 and Attention deficit hyperactivity disorder F90.9 [facility] [address] [place] [id number] [place] [address] Aug, [facility] [address] [address] Aug, [facility] [address] [place] [id number] [place] [address] Aug, [facility] [address] [place] [id number] [place] [address] Aug, Attention deficit hyperactivity disorder F90.9 [facility] [address] [id number] [place] [address] 16 Jul, 2016 [facility] [address] [id number] [place] [address] Jun, [facility] [address] [place] [id number] [place] [address] May, [facility] [address] [place] [id number] [place] [address] Apr, [facility] [address] [place] [id number] [place] [address] Apr, Bipolar disorder F31.9 ; Attention defic it hyperactivity disorder F90.9 and Intermittent explosive disorder F63.81 [facility] [address] [place] [id number] [place] [address] March, [facility] [address] [place] [id number] [place] [address] Feb, [facility] [address] [place] [id number] [place] [address] Feb, [facility] [address] [place] [id number] [place] [address] Jan, [facility] [address] [place] [id number] [place] [address] Jan, [facility] [address] [place] [id number] [place] [address] Dec, [facility] [address] [place] [id number] [place] [address] Nov, [facility] [address] [id number] [place] [address] Nov, [facility] [address] [place] [id number] [place] [address] Nov, Attention deficit hyperactivity disorder F90.9 ; Intermittent explosive disorder F63.81 and Bipolar disorder F31.9 [facility] [address] [address] Oct, [facility] [address] [address] Oct, [facility] [address] [address] Sep, [facility] [address] [address] Aug, [facility] [address] [address] Jul, [facility] [address] [address] Jul, [facility] [address] [address] Jul, Anxiety, generalized 300.02 ; Bipolar di sorder, unspecified 296.80 ; 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.00 ; 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 and Impulse control disorder, unspecified 312.30 [facility] [address] [address] Jul, [facility] [address] [address] Jun, [facility] [address] [address] May, [facility] [address] [address] Apr, [facility] [address] [address] Apr, Bipolar disorder, unspecified 296.80 ; G eneralized anxiety disorder 300.02 and 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.00 [facility] [address] [address] Apr, [facility] [address] [id number] [place] [address] March, [facility] [address] [id number] [place] [address] March, [facility] [address] [id number] [place] [address] March, [facility] [address] [id number] [place] [address] March, [facility] [address] [id number] [place] [address] Feb, [facility] [address] [id number] [place] [address] Feb, [facility] [address] [id number] [place] [address] Jan, [facility] [address] [id number] [place] [address] Jan, [facility] [address] [id number] [place] [address] Jan, [facility] [address] [id number] [place] [address] Jan, [facility] [address] [id number] [place] [address] Jan, [facility] [address] [id number] [place] [address] Dec, [facility] [address] [id number] [place] [address] Dec, [facility] [address] [id number] [place] [address] Nov, [facility] [address] [id number] [place] [address] Nov, [facility] [address] [id number] [place] [address] Nov, [facility] [address] [id number] [place] [address] Oct, [facility] [address] [facility] [id number] [place] [address] Oct, [facility] [address] [id number] [place] [address] Oct, [facility] [address] [id number] [place] [address] Oct, [facility] [address] [id number] [place] [address] Oct, [facility] [address] [id number] [place] [address] Oct, [facility] [address] [id number] [place] [address] Sep, [facility] [address] [id number] [place] [address] Sep, [facility] [address] [id number] [place] [address] Sep, [facility] [address] [id number] [place] [address] Aug, [facility] [address] [id number] [place] [address] Aug, [facility] [address] [id number] [place] [address] Jul, [facility] [address] [id number] [place] [address] Jul, [facility] [address] [id number] [place] [address] Jun, [facility] [address] [id number] [place] [address] Jun, [facility] [address] [id number] [place] [address] Jun, [facility] [address] [id number] [place] [address] Jun, [facility] [address] [facility] [id number] [facility] [place] [address] May, [facility] [address] [facility] [id number] [place] [address] May, [facility] [address] [facility] [id number] [place] [address] May, [facility] [address] [id number] [place] [address] Apr, [facility] [address] [facility] [id number] [place] [address] Apr, [facility] [address] [facility] [id number] [place] [address] Apr, [facility] [address] [id number] [place] [address] Apr, [facility] [address] [id number] [place] [address] March, [facility] [address] [id number] [place] [address] March, [facility] [address] [id number] [place] [address] March, [facility] [address] [id number] [place] [address] March, [facility] [address] [id number] [place] [address] Feb, [facility] [address] [id number] [place] [address] Feb, [facility] [address] [facility] [id number] [place] [address] Jan, [facility] [address] [id number] [place] [address] Jan, [facility] [address] [id number] [place] [address] Jan, [facility] [address] [id number] [place] [address] Jan, [facility] [address] [facility] [id number] [place] [address] Jan, [facility] [address] [id number] [place] [address] Jan, [facility] [address] [id number] [place] [address] Jan, [facility] [address] [id number] [place] [address] Jan, [facility] [address] [facility] [id number] [place] [address] Dec, [facility] [address] [id number] [place] [address] Dec, [facility] [address] [id number] [place] [address] Dec, [facility] [address] [id number] [place] [address] Dec, [facility] [address] [id number] [place] [address] Nov, [facility] [address] [id number] [place] [address] Nov, [facility] [address] [id number] [place] [address] Oct, [facility] [address] [id number] [place] [address] Oct, [facility] [address] [id number] [place] [address] Oct, [facility] [address] [id number] [place] [address] Oct, [facility] [address] [id number] [place] [address] Sep, [facility] [address] [id number] [place] [address] Sep, [facility] [address] [id number] [place] [address] 07 Sep, 2013 [facility] [address] [id number] [place] [address] Sep, [facility] [address] [id number] [place] [address] Aug, [facility] [address] [id number] [place] [address] Aug, [facility] [address] [id number] [place] [address] Aug, [facility] [address] [id number] [place] [address] Jul, [facility] [address] [id number] [place] [address] Jul, [facility] [address] [id number] [place] [address] Jun, [facility] [address] [id number] [place] [address] Jun, [facility] [address] [id number] [place] [address] May, [facility] [address] [id number] [place] [address] May, [facility] [address] [id number] [place] [address] Apr, [facility] [address] [id number] [place] [address] March, [facility] [address] [id number] [place] [address] March, [facility] [id number] [place] [address] Feb, [facility] [address] [id number] [place] [address] Jan, [facility] [address] [id number] [place] [address] Jan, [facility] [address] [id number] [place] [address] Dec, [facility] [address] [id number] [place] [address] Dec, [facility] [address] [id number] [place] [address] Nov, [facility] [address] [id number] [place] [address] Nov, [facility] [address] [id number] [place] [address] Nov, [facility] [address] [id number] [place] [address] Nov, [facility] [address] [id number] [place] [address] Nov, [facility] [address] [id number] [place] [address] Oct, [facility] [address] [id number] [place] [address] Oct, [facility] [address] [id number] [place] [address] Oct, [facility] [address] [id number] [place] [address] Oct, [facility] [address] [id number] [place] [address] Oct, [facility] [address] [id number] [place] [address] Oct, [facility] [address] [id number] [place] [address] Oct, [facility] [address] [id number] [place] [address] Oct, [facility] [address] [id number] [place] [address] Sep, [facility] [address] [id number] [place] [address] Sep, [facility] [address] [id number] [place] [address] Sep, [facility] [address] [id number] [place] [address] Aug, [facility] [address] [id number] [place] [address] Aug, [facility] [address] [id number] [place] [address] Aug, [facility] [address] [id number] [place] [address] Aug, [facility] [address] [id number] [place] [address] Aug, [facility] [address] [id number] [place] [address] Jul, [facility] [address] [id number] [place] [address] Jul, [facility] [address] [id number] [place] [address] Jun, [facility] [address] [id number] [place] [address] May, [facility] [address] [id number] [place] [address] May, [facility] [address] [id number] [place] [address] Apr, [facility] [address] [id number] [place] [address] March, [facility] [address] [id number] [place] [address] March, [facility] [address] [id number] [place] [address] March, [facility] [address] [id number] [place] [address] March, [facility] [id number] [place] [address] Feb, [facility] [id number] [place] [address] Feb, [facility] [id number] [place] [address] Jan, [facility] [id number] [place] [address] Dec, [facility] [id number] [place] [address] Dec, [facility] [id number] [place] [address] Dec, [facility] [id number] [place] [address] Nov, [facility] [id number] [place] [address] Nov, [facility] [id number] [place] [address] Nov, [facility] [id number] [place] [address] Oct, [facility] [id number] [place] [address] Sep, [facility] [id number] [place] [address] Aug, [facility] [id number] [place] [address] Aug, [facility] [id number] [place] [address] May, [facility] [id number] [place] [address] Sep, [facility] [id number] [place] [address] Sep, IMMUNIZATIONS No Known Immunizations SOCIAL HISTORY Never Assessed REASON FOR VISIT Medication question PLAN OF CARE VITAL SIGNS MEDICATIONS Medication Instructions Dosage Frequency Start Date End Date Duration S tatus Oxcarbazepine 300 MG Orally TID 1 tablet 8h 30 days Active Quetiapine Fumarate 200 MG Orally at bedtime 2 tablet 30 days Active Seroquel 50 MG Orally twice a day 1 tablet in the morning and o ne tablet at 2pm 12h 07 Jan, 2019 30 day(s) Active RESULTS No Results PROCEDURES No Known procedures INSTRUCTIONS MEDICATIONS ADMINISTERED No Known Medications MEDICAL (GENERAL) HISTORY Type Description Date Medical History bipolar Medical History adhd Medical History anxiety Medical History Intermittent explosive disorder Medical History Bipolar disorder Medical History Intellectual disability Surgical History No Surgical history information
--- OUTSIDE RECORDS SUMMARY | 2020-03-18 15:26 | XMS REPORT ---
Author Author Jose Cruz Bonilla Organization [facility] Address Unknown Care Team Providers Care Informatica Architect Name Role Phone BRODIE Bonilla Unavailable PROBLEMS Type Condition ICD9-CM Code NUO35-DL Code Onset Dates Condition S tatus SNOMED Code Problem Bipolar disorder F31.9 Active 137 98492 Problem Intellectual disability F79 Active 22780910 Problem Attention-deficit hyperactiv ity disorder, predominantly inattentive type F90.0 Active 48476064 Problem Intermittent explosive disorder F63.81 Active 54805507 Problem Attention deficit hyperactivity disorder F90.9 Active 135197291 Problem Bipolar disorder, currently in remission, most recent episode unspecified F31.70 Active 44538244 Problem Moderate intellectual disability F71 Active [id number] ALLERGIES No Information ENCOUNTERS Encounter Location Date Diagnosis [facility] [address] [id number] [address] [place] [phone] Jun, Bipolar disorder F31.9 [facility] [address] [id number] [address] [place] [phone] May, Bipolar disorder F31.9 ; Int ellectual disability F79 and Attention- deficit hyperactivity disorder, predominantly inattentive type F90.0 [facility] [address] [id number] [address] [place] [id number] May, [facility] [address] [id number] [address] [place] [phone] May, Bipolar disorder F31.9 [facility] [address] [id number] [address] [place] [id number] May, Bipolar disorder F31.9 ; Att ention-deficit hyperactivity disorder, predominantly inattentive type F90.0 and Moderate intellectual disability F71 [facility] [address] [id number] [address] [place] [address] Apr, Bipolar disorder F31.9 [facility] [address] [id number] [address] [place] [id number] Apr, Bipolar disorder F31.9 and H igh risk medication use Z79.899 [facility] [address] [id number] [address] [place] [address] March, Bipolar disorder F31.9 and H igh risk medication use Z79.899 [facility] [address] [id number] [address] [place] [address] March, Bipolar disorder F31.[address] [facility] [id number] [place] [address] March, Caries K02.9 [facility] [address] [id number] [address] [place] [address] March, Bipolar disorder F31.9 [facility] [address] [id number] [address] [place] [phone] March, Bipolar disorder F31.9 [facility] [address] [id number] [address] [place] [address] Feb, Bipolar disorder F31.9 [facility] [address] [id number] [address] [place] [id number] Feb, Bipolar disorder F31.9 ; Att ention-deficit hyperactivity disorder, predominantly inattentive type F90.0 and Moderate intellectual disability F71 [facility] [address] [id number] [address] [place] [address] Jan, Bipolar disorder F31.9 [facility] [address] [id number] [address] [place] [address] Jan, Bipolar disorder F31.9 [facility] [address] [id number] [address] [place] [address] Jan, Dental examination Z01.20 ; 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 status requiring routine preventive dental care K08.9 and Caries K02.9 [facility] [address] [id number] [address] [place] [phone] Jan, [facility] [address] [id number] [address] [place] [id number] Jan, Bipolar disorder F31.9 ; Mod erate intellectual disability F71 and Attention-deficit hyperactivity disorder, predominantly inattentive type F90.0 [facility] [address] [id number] [address] [place] [address] Dec, Bipolar disorder, currently in remission, most recent episode unspecified F31.70 [facility] [address] [id number] [address] [place] [address] Dec, Bipolar disorder, currently in remission, most recent episode unspecified F31.70 [facility] [address] [id number] [address] [place] [id number] Dec, Bipolar disorder, currently in remission, most recent episode unspecified F31.70 [facility] [address] [id number] [address] [place] [id number] Dec, [facility] [address] [id number] [address] [place] [address] Dec, Bipolar disorder, currently in remission, most recent episode unspecified F31.70 [facility] [address] [id number] [address] [place] [id number] Nov, Bipolar disorder, currently in remission, most recent episode unspecified F31.70 [facility] [address] [id number] [address] [place] [address] Nov, [facility] [address] [id number] [address] [place] [phone] Nov, [facility] [address] [id number] [address] [place] [address] Nov, Bipolar disorder, currently in remission, most recent episode unspecified F31.70 [facility] [address] [id number] [address] [place] [id number] Nov, Bipolar disorder, currently in remission, most recent episode unspecified F31.70 [facility] [address] [id number] [address] [place] [address] Oct, High risk medication use Z79 .899 ; Bipolar disorder F31.9 ; Moderate intellectual disability F71 and Attention-deficit hyperactivity disorder, predominantly inattentive type F90.0 [facility] [address] [id number] [address] [place] [address] Oct, [facility] [address] [id number] [address] [place] [address] Sep, Bipolar disorder, currently in remission, most recent episode unspecified F31.70 [facility] [address] [id number] [address] [place] [address] [id number] Sep, 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 stat us requiring routine preventive dental care K08.9 and Arrested dental caries K02.3 [facility] [address] [id number] [address] [place] [address] Sep, Bipolar disorder, currently in remission, most recent episode unspecified F31.70 ; Moderate intellectual disability F71 and Attention-deficit hyperactivity disorder, predominantly inattentive type F90.0 [facility] [address] [id number] [address] [place] [address] Sep, Bipolar disorder, currently in remission, most recent episode unspecified F31.70 [facility] [address] [id number] [address] [place] [address] Aug, Bipolar disorder, currently in remission, most recent episode unspecified F31.70 [facility] [address] [id number] [address] [place] [id number] Jul, Bipolar disorder, currently in remission, most recent episode unspecified F31.70 [facility] [address] [id number] [address] [place] [address] Jul, Bipolar disorder, currently in remission, most recent episode unspecified F31.70 [facility] [address] [id number] [address] [place] [address] Jun, [facility] [address] [id number] [address] [place] [id number] Jun, Bipolar disorder, currently in remission, most recent episode unspecified F31.70 [facility] [address] [id number] [address] [place] [address] [id number] 08 Jun, 2018 Dental examination Z01.20 an d Dental caries K02.9 [facility] [address] [id number] [address] [place] [phone] May, Bipolar disorder, currently in remission, most recent episode unspecified F31.70 [facility] [address] [id number] [address] [place] [address] May, Bipolar disorder, currently in remission, most recent episode unspecified F31.70 [facility] [address] [id number] [address] [place] [address] May, Bipolar disorder, currently in remission, most recent episode unspecified F31.70 ; Moderate intellectual disability F71 and Attention-deficit hyperactivity disorder, predominantly inattentive type F90.0 [facility] [address] [id number] [address] [place] [phone] Apr, Bipolar disorder, unspecifie d F31.9 [facility] [address] [id number] [address] [place] [id number] Apr, [facility] [address] [id number] [address] [place] [phone] Apr, [facility] [address] [id number] [address] [place] [phone] Apr, [facility] [address] [id number] [address] [place] [id number] March, [facility] [address] [id number] [address] [place] [id number] March, Bipolar disorder, currently in remission, most recent episode unspecified F31.70 ; Moderate intellectual disability 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 and Attention-deficit hyperactivity disorder, predominantly inattentive type F90.0 [facility] [address] [id number] [address] [place] [id number] Feb, [facility] [address] [id number] [address] [place] [address] [id number] Feb, Dental examination Z01.20 [facility] [address] [id number] [address] [place] [phone] Jan, [facility] [address] [id number] [address] [place] [id number] Jan, [facility] [address] [id number] [address] [place] [id number] Dec, [facility] [address] [id number] [address] [place] [phone] Nov, [facility] [address] [id number] [place] [address] [id number] Nov, Encounter for dental exam an d cleaning w/o abnormal findings Z01.20 [facility] [address] [id number] [address] [place] [id number] Nov, Dental examination Z01.20 [facility] [address] [id number] [address] [place] [id number] Oct, [facility] [address] [id number] [address] [place] [address] Oct, Bipolar disorder, currently in remission, most recent episode unspecified F31.70 ; Moderate intellectual disability 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 and Attention-deficit hyperactivity disorder, predominantly inattentive type F90.0 [facility] [address] [id number] [address] [place] [id number] Sep, [facility] [address] [id number] [address] [place] [id number] Sep, [facility] [address] [id number] [address] [place] [address] Aug, [facility] [address] [id number] [address] [place] [id number] Aug, Attention-deficit hyperactiv ity disorder, predominantly inattentive type F90.0 ; Moderate intellectual disability F71 and Bipolar disorder F31.9 [facility] [address] [id number] [address] [place] [address] [id number] 11 Jul, 2017 Dental examination Z01.20 an d Dental caries K02.9 [facility] [address] [id number] [address] [place] [phone] 05 Jul, 2017 [facility] [address] [id number] [address] [place] [id number] Jun, Bipolar disorder F31.9 ; Att ention-deficit hyperactivity disorder, predominantly inattentive type F90.0 and Moderate intellectual disability 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 [facility] [address] [id number] [address] [place] [address] Jun, [facility] [address] [id number] [address] [place] [id number] May, [facility] [address] [id number] [address] [place] [phone] Apr, [facility] [address] [id number] [address] [place] [phone] March, Intermittent explosive disor jocelyn F63.81 ; Attention deficit hyperactivity disorder F90.9 and Bipolar disorder F31.9 [facility] [address] [id number] [address] [place] [id number] Feb, [facility] [address] [id number] [address] [place] [phone] Jan, [facility] [address] [id number] [address] [place] [id number] 13 Dec, 2016 Intermittent explosive disor jocelyn F63.81 ; Attention deficit hyperactivity disorder F90.9 and Bipolar disorder, currently in remission, most recent episode unspecified F31.70 [facility] [address] [id number] [address] [place] [phone] 13 Dec, 2016 Encounter for immunization Z 23 [facility] [address] [id number] [address] [place] [phone] Nov, [facility] [address] [id number] [address] [place] [id number] Oct, [facility] [address] [id number] [address] [place] [phone] Oct, [facility] [address] [id number] [address] [place] [address] [id number] Oct, Dental examination Z01.20 [facility] [address] [id number] [address] [place] [id number] Sep, [facility] [address] [id number] [address] [place] [id number] Sep, [facility] [address] [id number] [address] [place] [id number] Sep, Intermittent explosive disor jocelyn F63.81 ; Bipolar disorder F31.9 and Attention deficit hyperactivity disorder F90.9 [facility] [address] [id number] [address] [place] [phone] Aug, [facility] [address] [id number] [address] [place] [id number] Aug, [facility] [address] [id number] [address] [place] [phone] Aug, [facility] [address] [id number] [address] [place] [phone] Aug, Attention deficit hyperactiv ity disorder F90.9 [facility] [address] [id number] [address] [place] [address] Jul, [facility] [address] [id number] [address] [place] [id number] Jun, [facility] [address] [id number] [address] [place] [phone] May, [facility] [address] [id number] [address] [place] [id number] Apr, [facility] [address] [id number] [address] [place] [id number] Apr, Bipolar disorder F31.9 ; Att ention deficit hyperactivity disorder F90.9 and Intermittent explosive disorder F63.81 [facility] [address] [id number] [address] [place] [id number] March, [facility] [address] [id number] [address] [place] [id number] Feb, [facility] [address] [id number] [address] [place] [phone] Feb, [facility] [address] [id number] [address] [place] [phone] Jan, [facility] [address] [id number] [address] [place] [address] Jan, [facility] [address] [id number] [address] [place] [id number] Dec, [facility] [address] [id number] [address] [place] [address] Nov, [facility] [address] [id number] [address] [place] [address] Nov, [facility] [address] [id number] [address] [place] [phone] Nov, Attention deficit hyperactiv ity disorder F90.9 ; Intermittent explosive disorder F63.81 and Bipolar disorder F31.9 [facility] [address] [id number] [address] [place] [id number] Oct, [facility] [address] [id number] [address] [place] [phone] Oct, [facility] [address] [id number] [address] [place] [phone] Sep, [facility] [address] [id number] [address] [place] [id number] Aug, [facility] [address] [id number] [address] [place] [phone] Jul, [facility] [address] [id number] [address] [place] [phone] Jul, [facility] [address] [id number] [address] [place] [address] Jul, Anxiety, generalized 300.02 ; Bipolar disorder, unspecified 296.80 ; 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.00 ; 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 and Impulse control disorder, unspecified 312.30 [facility] [address] [id number] [address] [place] [id number] Jul, [facility] [address] [id number] [address] [place] [id number] Jun, [facility] [address] [facility] [id number] [address] [place] [address] May, [facility] [address] [id number] [address] [place] [address] Apr, [facility] [address] [id number] [address] [place] [phone] Apr, Bipolar disorder, unspecifie d 296.80 ; Generalized anxiety disorder 300.02 and 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.00 [facility] [address] [facility] [id number] [address] [place] [phone] Apr, [facility] [address] [id number] [address] [place] [id number] March, [facility] [address] [id number] [address] [place] [phone] March, [facility] [address] [facility] [id number] [address] [place] [id number] March, [facility] [address] [id number] [address] [place] [address], [place] [address] March, [facility] [address] [id number] [address] [place] [address], [place] [address] 14 Feb, 2015 [facility] [address] [id number] [address] [place] [address], [place] [address] Feb, [facility] [address] [id number] [address] [place] [address], [place] [address] Jan, [facility] [address] [id number] [address] [place] [address], [place] [address] Jan, [facility] [address] [id number] [address] [place] [address], [place] [address] Jan, [facility] [address] [id number] [address] [place] [address], [place] [address] Jan, [facility] [address] [id number] [address] [place] [address], [place] [address] Jan, [facility] [address] [id number] [address] [place] [address], [place] [address] Dec, [facility] [address] [id number] [address] [place] [address], [place] [address] Dec, [facility] [address] [id number] [address] [place] [address], [place] [address] Nov, [facility] [address] [id number] [address] [place] [address], [place] [address] Nov, [facility] [address] [id number] [address] [place] [address], [place] [address] Nov, [facility] [address] [id number] [address] [place] [address], [place] [address] Oct, [facility] [address] [id number] [address] [place] [address], [place] [address] Oct, [facility] [address] [id number] [address] [place] [address], [place] [address] Oct, [facility] [address] [id number] [address] [place] [address], [place] [address] Oct, [facility] [address] [id number] [address] [place] [address], [place] [address] Oct, [facility] [address] [id number] [address] [place] [address], [place] [address] Oct, [facility] [address] [id number] [address] [place] [address], [place] [address] Sep, [facility] [address] [id number] [address] [place] [address], [place] [address] Sep, [facility] [address] [id number] [address] [place] [address], [place] [address] Sep, [facility] [address] [id number] [address] [place] [address], [place] [address] Aug, [facility] [address] [id number] [address] [place] [address], [place] [address] Aug, [facility] [address] [id number] [address] [place] [address], [place] [address] Jul, [facility] [address] [id number] [address] [place] [address], [place] [address] Jul, [facility] [address] [id number] [address] [place] [address], [place] [address] Jun, [facility] [address] [id number] [address] [place] [address], [place] [address] Jun, [facility] [address] [id number] [address] [place] [address], [place] [address] Jun, [facility] [address] [id number] [address] [place] [address], [place] [address] Jun, [facility] [address] [id number] [address] [place] [address], [place] [address] May, [facility] [address] [id number] [address] [place] [address], [place] [address] May, [facility] [address] [id number] [address] [place] [address], [place] [address] May, [facility] [address] [id number] [address] [place] [address], [place] [address] Apr, [facility] [address] [id number] [address] [place] [address], [place] [address] Apr, [facility] [address] [id number] [address] [place] [address], [place] [address] Apr, [facility] [address] [id number] [address] [place] [address], [place] [address] Apr, [facility] [address] [id number] [address] [place] [address], [place] [address] March, [facility] [address] [id number] [address] [place] [address], [place] [address] March, [facility] [address] [id number] [address] [place] [address], [place] [address] March, [facility] [address] [id number] [address] [place] [address], [place] [address] March, [facility] [address] [id number] [address] [place] [address], [place] [address] Feb, [facility] [address] [id number] [address] [place] [address], [place] [address] Feb, [facility] [address] [id number] [address] [place] [address], [place] [address] Jan, [facility] [address] [id number] [address] [place] [address], [place] [address] Jan, [facility] [address] [id number] [address] [place] [address], [place] [address] Jan, [facility] [facility] [address] [id number] [address] [place] [address], [place] [address] Jan, [facility] [address] [id number] [address] [place] [address], [place] [address] Jan, [facility] [address] [id number] [address] [place] [address], [place] [address] Jan, [facility] [address] [id number] [address] [place] [address], [place] [address] Jan, [facility] [address] [id number] [address] [place] [address], [place] [address] Jan, [facility] [address] [id number] [address] [place] [address], [place] [address] Dec, [facility] [address] [id number] [address] [place] [address], [place] [address] Dec, [facility] [address] [id number] [address] [place] [address], [place] [address] Dec, [facility] [address] [id number] [address] [place] [address], [place] [address] Dec, [facility] [address] [id number] [address] [place] [address], [place] [address] Nov, [facility] [address] [id number] [address] [place] [address], [place] [address] Nov, [facility] [address] [id number] [address] [place] [address], [place] [address] Oct, [facility] [address] [id number] [address] [place] [address], [place] [address] Oct, [facility] [address] [id number] [address] [place] [address], [place] [address] Oct, [facility] [address] [id number] [address] [place] [address], [place] [address] Oct, [facility] [address] [id number] [address] [place] [address], [place] [address] Sep, [facility] [address] [id number] [address] [place] [address], [place] [address] Sep, [facility] [address] [id number] [address] [place] [address], [place] [address] Sep, [facility] [address] [id number] [address] [place] [address], [place] [address] Sep, [facility] [address] [id number] [address] [place] [address], [place] [address] Aug, [facility] [address] [id number] [address] [place] [address], [place] [address] Aug, [facility] [address] [id number] [address] [place] [address], [place] [address] Aug, [facility] [address] [id number] [address] [place] [address], [place] [address] Jul, [facility] [address] [id number] [address] [place] [address], [place] [address] Jul, [facility] [address] [id number] [address] [place] [address], [place] [address] Jun, [facility] [address] [id number] [address] [place] [address], [place] [address] Jun, [facility] [address] [id number] [address] [place] [address], [place] [address] May, [facility] [address] [id number] [address] [place] [address], [place] [address] May, [facility] [address] [id number] [address] [place] [address], [place] [address] Apr, [facility] [address] [id number] [address] [place] [address], [place] [address] March, [facility] [address] [id number] [address] [place] [address], [place] [address] March, [facility] [address] [id number] [address] [place] [address], [place] [address] Feb, [facility] [address] [id number] [address] [place] [address], [place] [address] Jan, [facility] [address] [id number] [address] [place] [address], [place] [address] Jan, [facility] [address] [id number] [address] [place] [address], [place] [address] Dec, [facility] [address] [id number] [address] [place] [address], [place] [address] Dec, [facility] [address] [id number] [address] [place] [address], [place] [address] Nov, [facility] [address] [id number] [address] [place] [address], [place] [address] Nov, [facility] [address] [id number] [address] [place] [address], [place] [address] Nov, [facility] [address] [id number] [address] [place] [address], [place] [address] Nov, [facility] [address] [id number] [address] [place] [address], [place] [address] Nov, [facility] [address] [id number] [address] [place] [address], [place] [address] Oct, [facility] [address] [id number] [address] [place] [address], [place] [address] Oct, [facility] [address] [id number] [address] [place] [address], [place] [address] Oct, [facility] [address] [id number] [address] [place] [address], [place] [address] Oct, [facility] [address] [id number] [address] [place] [address], [place] [address] Oct, [facility] [address] [id number] [address] [place] [address], [place] [address] 05 Oct, 2012 [facility] [address] [id number] [address] [place] [address], [place] [address] 05 Oct, 2012 [facility] [address] [id number] [address] [place] [address], [place] [address] Oct, [facility] [address] [id number] [address] [place] [address], [place] [address] Sep, [facility] [address] [id number] [address] [place] [address], [place] [address] Sep, [facility] [address] [id number] [address] [place] [address], [place] [address] Sep, [facility] [address] [id number] [address] [place] [address], [place] [address] Aug, [facility] [address] [id number] [address] [place] [address], [place] [address] Aug, [facility] [address] [id number] [address] [place] [address], [place] [address] Aug, [facility] [address] [id number] [address] [place] [address], [place] [address] Aug, [facility] [address] [id number] [address] [place] [address], [place] [address] Aug, [facility] [address] [id number] [address] [place] [address], [place] [address] Jul, [facility] [address] [id number] [address] [place] [address], [place] [address] 18 Jul, 2012 [facility] [address] [id number] [address] [place] [address], [place] [address] Jun, [facility] [address] [id number] [address] [place] [address], [place] [address] May, [facility] [address] [id number] [address] [place] [address], [place] [address] May, [facility] [address] [id number] [address] [place] [address], [place] [address] Apr, [facility] [address] [id number] [address] [place] [address], [place] [address] March, [facility] [address] [id number] [address] [place] [address], [place] [address] March, [facility] [address] [id number] [address] [place] [address], [place] [address] March, [facility] [address] [id number] [address] [place] [address], [place] [address] March, [facility] [address] [id number] [address] [place] [address], [place] [address] Feb, [facility] [address] [id number] [address] [place] [address], [place] [address] Feb, [facility] [address] [id number] [address] [place] [address], [place] [address] Jan, [facility] [address] [id number] [address] [place] [address], [place] [address] Dec, [facility] [address] [id number] [address] [place] [address], [place] [address] Dec, [facility] [address] [id number] [address] [place] [address], [place] [address] Dec, [facility] [address] [id number] [address] [place] [address], [place] [address] Nov, [facility] [address] [id number] [address] [place] [address], [place] [address] Nov, [facility] [address] [id number] [address] [place] [address], [place] [address] Nov, [facility] [address] [id number] [address] [place] [address], [place] [address] Oct, [facility] [address] [id number] [address] [place] [address], [place] [address] Sep, [facility] [address] [id number] [address] [place] [address] Aug, [facility] [address] [facility] [id number] [address] [place] [address] Aug, [facility] [address] [facility] [id number] [address] [place] [address] May, [facility] [address] [facility] [id number] [address] [place] [address] Sep, [facility] [address] [facility] [id number] [address] [place] [address] Sep, IMMUNIZATIONS No Known Immunizations SOCIAL HISTORY Never Assessed REASON FOR VISIT PLAN OF CARE VITAL SIGNS Height 74.5 in 2014-11-13 Weight 265.19 lbs 2014-11-13 Temperature 97.4 degrees Fahrenheit 2014-11-13 Heart Rate 76 bpm 2014-11-13 Respiratory Rate 24 2014-11-13 Blood pressure systolic 112 mmHg 2014-11-13 Blood pressure diastolic 82 mmHg 2014-11-13 MEDICATIONS Unknown Medications RESULTS No Results PROCEDURES No Known procedures INSTRUCTIONS MEDICATIONS ADMINISTERED No Known Medications MEDICAL (GENERAL) HISTORY Type Description Date Medical History bipolar Medical History adhd Medical History anxiety Medical History Intermittent explosive disorder Medical History Bipolar disorder Medical History Intellectual disability Surgical History No Surgical history information
--- OUTSIDE RECORDS SUMMARY | 2020-03-18 15:26 | XMS REPORT ---
Author Author Jose Cruz HAMMER Organization [facility] Address [address] [place] [address] Care Team Providers Care Lift Team Technician Name Role Phone BRENDA HAMMER Unavailable PROBLEMS Type Condition ICD9-CM Code [id number] Code Onset Dates Condition S tatus SNOMED Code Problem Bipolar disorder F31.9 Active 137 17641 Problem Intellectual disability F79 Active 65771386 Problem Attention-deficit hyperactiv ity disorder, predominantly inattentive type F90.0 Active 66952933 Problem Intermittent explosive disorder F63.81 Active 05256979 Problem Attention deficit hyperactivity disorder F90.9 Active 123893454 Problem Bipolar disorder, currently in remission, most recent episode unspecified F31.70 Active 57441784 Problem Moderate intellectual disability F71 Active [id number] ALLERGIES No Information ENCOUNTERS Encounter Location Date Diagnosis [facility] [address] [facility] [id number] [address] [place] [phone] Jun, [facility] [address] [facility] [id number] [address] [place] [phone] May, Bipolar disorder F31.9 ; Int ellectual disability F79 and Attention- deficit hyperactivity disorder, predominantly inattentive type F90.0 [facility] [address] [facility] [id number] [address] [place] [phone] May, [facility] [address] [facility] [id number] [address] [place] [phone] May, Bipolar disorder F31.9 [facility] [address] 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 [id number] [address] [place] [address] Apr, Bipolar disorder F31.9 [facility] [address] [id number] [address] [place] [address] Apr, Bipolar disorder F31.9 and H igh risk medication use Z79.899 [facility] [address] [id number] [address] [place] [phone] March, Bipolar disorder F31.9 and H igh risk medication use Z79.899 [facility] [address] [id number] [address] [place] [address] March, Bipolar disorder F31.[address] [facility] [id number] [place] [phone] March, Caries K02.9 [facility] [address] [id number] [address] [place] [address] March, Bipolar disorder F31.9 [facility] [address] [id number] [address] [place] [phone] March, Bipolar disorder F31.9 [facility] [address] [id number] [address] [place] [phone] Feb, Bipolar disorder F31.9 [facility] [address] [id number] [address] [place] [phone] Feb, Bipolar disorder F31.9 ; Att ention-deficit hyperactivity disorder, predominantly inattentive type F90.0 and Moderate intellectual disability F71 [facility] [address] [id number] [address] [place] [address] Jan, Bipolar disorder F31.9 [facility] [address] [id number] [address] [place] [address] Jan, Bipolar disorder F31.9 [facility] [address] [id number] [address] [place] [address] Jan, Dental examination Z01.20 ; 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 status requiring routine preventive dental care K08.9 and Caries K02.9 [facility] [address] [id number] [address] [place] [phone] Jan, [facility] [address] [id number] [address] [place] [phone] Jan, Bipolar disorder F31.9 ; Mod erate intellectual disability F71 and Attention-deficit hyperactivity disorder, predominantly inattentive type F90.0 [facility] [address] [id number] [address] [place] [phone] Dec, Bipolar disorder, currently in remission, most recent episode unspecified F31.70 [facility] [address] [id number] [address] [place] [phone] Dec, Bipolar disorder, currently in remission, most recent episode unspecified F31.70 [facility] [address] [id number] [address] [place] [phone] Dec, Bipolar disorder, currently in remission, most recent episode unspecified F31.70 [facility] [address] [id number] [address] [place] [address] Dec, [facility] [address] [id number] [address] [place] [phone] Dec, Bipolar disorder, currently in remission, most recent episode unspecified F31.70 [facility] [address] [id number] [address] [place] [address] Nov, Bipolar disorder, currently in remission, most recent episode unspecified F31.70 [facility] [address] [id number] [address] [place] [address] Nov, [facility] [address] [id number] [address] [place] [phone] Nov, [facility] [address] [id number] [address] [place] [phone] Nov, Bipolar disorder, currently in remission, most recent episode unspecified F31.70 [facility] [address] [id number] [address] [place] [address] Nov, Bipolar disorder, currently in remission, most recent episode unspecified F31.70 [facility] [address] [id number] [address] [place] [address] Oct, High risk medication use Z79 .899 ; Bipolar disorder F31.9 ; Moderate intellectual disability F71 and Attention-deficit hyperactivity disorder, predominantly inattentive type F90.0 [facility] [address] [id number] [address] [place] [address] Oct, [facility] [address] [id number] [address] [place] [address] Sep, Bipolar disorder, currently in remission, most recent episode unspecified F31.70 [facility] [address] [id number] [address] [place] [id number] Sep, 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 stat requiring routine preventive dental care K08.9 and Arrested dental caries K02.3 [facility] [address] [id number] [address] [place] [phone] Sep, Bipolar disorder, currently in remission, most recent episode unspecified F31.70 ; Moderate intellectual disability 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 and Attention-deficit hyperactivity disorder, predominantly inattentive type F90.0 [facility] [address] [id number] [address] [place] [address] Sep, Bipolar disorder, currently in remission, most recent episode unspecified F31.70 [facility] [address] [id number] [address] [place] [address] Aug, Bipolar disorder, currently in remission, most recent episode unspecified F31.70 [facility] [address] [id number] [address] [place] [phone] Jul, Bipolar disorder, currently in remission, most recent episode unspecified F31.70 [facility] [address] [id number] [address] [place] [phone] Jul, Bipolar disorder, currently in remission, most recent episode unspecified F31.70 [facility] [address] [id number] [address] [place] [phone] Jun, [facility] [address] [id number] [address] [place] [address] Jun, Bipolar disorder, currently in remission, most recent episode unspecified F31.70 [facility] [address] [id number] [address] [place] [address] [id number] Jun, Dental examination Z01.20 an d Dental caries K02.9 [facility] [address] [id number] [address] [place] [phone] May, Bipolar disorder, currently in remission, most recent episode unspecified F31.70 [facility] [address] [id number] [address] [place] [phone] May, Bipolar disorder, currently in remission, most recent episode unspecified F31.70 [facility] [address] [id number] [address] [place] [phone] May, Bipolar disorder, currently in remission, most recent episode unspecified F31.70 ; Moderate intellectual disability F71 and Attention-deficit hyperactivity disorder, predominantly inattentive type F90.0 [facility] [address] [id number] [address] [place] [address] Apr, Bipolar disorder, unspecifie d F31.9 [facility] [address] [id number] [address] [place] [phone] Apr, [facility] [address] [id number] [address] [place] [phone] Apr, [facility] [address] [id number] [address] [place] [phone] Apr, [facility] [address] [facility] [id number] [address] [place] [phone] March, [facility] [address] 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 and Attention-deficit hyperactivity disorder, predominantly inattentive type F90.0 [facility] [address] [id number] [address] [place] [phone] Feb, [facility] [address] [id number] [address] [place] [phone] Feb, Dental examination Z01.20 [facility] [address] [id number] [address] [place] [phone] Jan, [facility] [address] [id number] [address] [place] [address] Jan, [facility] [address] [id number] [address] [place] [id number] Dec, [facility] [address] [id number] [address] [place] [phone] Nov, [facility] [id number] [place] [address] [id number] Nov, Encounter for dental exam an d cleaning w/o abnormal findings Z01.20 [facility] [address] [id number] [address] [place] [address] [phone] Nov, Dental examination Z01.20 [facility] [address] [id number] [address] [place] [phone] Oct, [facility] [address] [id number] [address] [place] [phone] Oct, Bipolar disorder, currently in remission, most recent episode unspecified F31.70 ; Moderate intellectual disability F71 and Attention-deficit hyperactivity disorder, predominantly inattentive type F90.0 [facility] [address] [id number] [address] [place] [phone] Sep, [facility] [address] [id number] [address] [place] [phone] Sep, [facility] [address] [id number] [address] [place] [phone] Aug, [facility] [address] [id number] [address] [place] [phone] 02 Aug, 2017 Attention-deficit hyperactiv ity disorder, predominantly inattentive type F90.0 ; Moderate intellectual disability F71 and Bipolar disorder F31.9 [facility] [address] [id number] [address] [place] [address] [id number] [phone] Jul, 2017 Dental examination Z01.20 an d Dental caries K02.9 [facility] [address] [id number] [address] [place] [phone] 05 Jul, 2017 [facility] [address] [facility] [id number] [address] [place] [phone] Jun, Bipolar disorder F31.9 ; Att ention-deficit hyperactivity disorder, predominantly inattentive type F90.0 and Moderate intellectual disability F71 [facility] [address] [id number] [address] [place] [phone] Jun, [facility] [address] [id number] [address] [place] [phone] May, [facility] [address] [facility] [id number] [address] [place] [phone] Apr, [facility] [address] [facility] [id number] [address] [place] [phone] March, Intermittent explosive disor jocelyn F63.81 ; Attention deficit hyperactivity disorder F90.9 and Bipolar disorder F31.9 [facility] [address] [facility] [id number] [address] [place] [phone] Feb, [facility] [address] [id number] [address] [place] [phone] Jan, [facility] [address] [facility] [id number] [address] [place] [phone] 13 Dec, 2016 Encounter for immunization Z 23 [facility] [address] [facility] [id number] [address] [place] [phone] 13 Dec, 2016 Intermittent explosive disor jocelyn F63.81 ; Attention deficit hyperactivity disorder F90.9 and Bipolar disorder, currently in remission, most recent episode unspecified F31.70 [facility] [address] [id number] [address] [place] [phone] Nov, [facility] [address] [id number] [address] [place] [phone] Oct, [facility] [address] [id number] [address] [place] [phone] Oct, [facility] [address] [id number] [address] [place] [address] [id number] Oct, Dental examination Z01.20 [facility] [address] [id number] [address] [place] [phone] Sep, [facility] [address] [id number] [address] [place] [phone] Sep, [facility] [address] [facility] [id number] [address] [place] [phone] Sep, Intermittent explosive disor jocelyn F63.81 ; Bipolar disorder F31.9 and Attention deficit hyperactivity disorder F90.9 [facility] [address] [id number] [address] [place] [phone] Aug, [facility] [address] [id number] [address] [place] [phone] Aug, [facility] [address] [id number] [address] [place] [phone] Aug, [facility] [address] [id number] [address] [place] [phone] Aug, Attention deficit hyperactiv ity disorder F90.9 [facility] [address] [id number] [address] [place] [phone] Jul, [facility] [address] [id number] [address] [place] [phone] Jun, [facility] [address] [id number] [address] [place] [phone] May, [facility] [address] [id number] [address] [place] [phone] Apr, [facility] [address] [facility] [id number] [address] [place] [phone] Apr, Bipolar disorder F31.9 ; Att ention deficit hyperactivity disorder F90.9 and Intermittent explosive disorder F63.81 [facility] [address] [id number] [address] [place] [phone] March, [facility] [address] [id number] [address] [place] [phone] Feb, [facility] [address] [id number] [address] [place] [phone] Feb, [facility] [address] [facility] [id number] [address] [place] [phone] Jan, [facility] [address] [id number] [address] [place] [phone] Jan, [facility] [address] [id number] [address] [place] [phone] Dec, [facility] [address] [facility] [id number] [address] [place] [phone] Nov, [facility] [address] [id number] [address] [place] [phone] Nov, [facility] [address] [id number] [address] [place] [phone] Nov, Attention deficit hyperactiv ity disorder F90.9 ; Intermittent explosive disorder F63.81 and Bipolar disorder F31.9 [facility] [address] [id number] [address] [place] [phone] Oct, [facility] [address] [id number] [address] [place] [phone] Oct, [facility] [address] [id number] [address] [place] [phone] Sep, [facility] [address] [id number] [address] [place] [address] Aug, [facility] [address] [facility] [id number] [address] [place] [phone] Jul, [facility] [address] [facility] [id number] [address] [place] [phone] Jul, [facility] [address] 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 [id number] [address] [place] [phone] Jul, [facility] [address] [facility] [id number] [address] [place] [phone] Jun, [facility] [address] [facility] [id number] [address] [place] [phone] May, [facility] [address] [facility] [id number] [address] [place] [phone] Apr, [facility] [address] [facility] [id number] [address] [place] [address] Apr, Bipolar disorder, unspecifie d 296.80 ; Generalized anxiety disorder 300.02 and 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.00 [facility] [address] [id number] [address] [place] [phone] Apr, [facility] [address] [facility] [id number] [address] [place] [phone] March, [facility] [address] [facility] [id number] [address] [place] [phone] March, [facility] [address] [facility] [id number] [address] [place] [phone] March, [facility] [address] [id number] [address] [place] [address], [place] [address] March, [facility] [address] [id number] [address] [place] [address], [place] [phone] 14 Feb, 2015 [facility] [address] [id number] [address] [place] [address], [place] [address] Feb, [facility] [address] [id number] [address] [place] [address], [place] [address] Jan, [facility] [address] [id number] [address] [place] [address], [place] [address] Jan, [facility] [address] [id number] [address] [place] [address], [place] [address] Jan, [facility] [address] [id number] [address] [place] [address], [place] [address] Jan, [facility] [address] [id number] [address] [place] [address], [place] [address] Jan, [facility] [address] [id number] [address] [place] [address], [place] [address] Dec, [facility] [address] [id number] [address] [place] [address], [place] [address] Dec, [facility] [address] [id number] [address] [place] [address], [place] [address] Nov, [facility] [address] [id number] [address] [place] [address], [place] [address] Nov, [facility] [address] [id number] [address] [place] [address], [place] [address] Nov, [facility] [address] [id number] [address] [place] [address], [place] [address] Oct, [facility] [address] [id number] [address] [place] [address], [place] [address] Oct, [facility] [address] [id number] [address] [place] [address], [place] [address] Oct, [facility] [address] [id number] [address] [place] [address], [place] [address] Oct, [facility] [address] [id number] [address] [place] [address], [place] [address] Oct, [facility] [address] [id number] [address] [place] [address], [place] [address] Oct, [facility] [address] [id number] [address] [place] [address], [place] [id number] Sep, [facility] [address] [id number] [address] [place] [address], [place] [address] Sep, [facility] [address] [id number] [address] [place] [address], [place] [address] Sep, [facility] [address] [id number] [address] [place] [address], [place] [address] Aug, [facility] [address] [id number] [address] [place] [address], [place] [address] Aug, [facility] [address] [id number] [address] [place] [address], [place] [address] Jul, [facility] [address] [id number] [address] [place] [address], [place] [address] Jul, [facility] [address] [id number] [address] [place] [address], [place] [address] Jun, [facility] [address] [id number] [address] [place] [address], [place] [address] Jun, [facility] [address] [id number] [address] [place] [address], [place] [address] Jun, [facility] [address] [id number] [address] [place] [address], [place] [id number] Jun, [facility] [address] [id number] [address] [place] [address], [place] [id number] May, [facility] [address] [id number] [address] [place] [id number] May, [facility] [address] [id number] [address] [place] [id number] May, [facility] [address] [id number] [address] [place] [address] Apr, [facility] [address] [id number] [address] [place] [address], [place] [id number] Apr, [facility] [address] [id number] [address] [place] [address], [place] [id number] Apr, [facility] [address] [id number] [address] [place] [address], [place] [id number] Apr, [facility] [facility] [address] [id number] [address] [place] [address], [place] [address] March, [facility] [address] [id number] [address] [place] [address], [place] [address] March, [facility] [address] [id number] [address] [place] [address], [place] [address] March, [facility] [address] [id number] [address] [place] [address], [place] [address] March, [facility] [address] [id number] [address] [place] [address], [place] [address] Feb, [facility] [address] [id number] [address] [place] [address], [place] [address] Feb, [facility] [address] [id number] [address] [place] [address], [place] [address] Jan, [facility] [address] [id number] [address] [place] [address], [place] [address] Jan, [facility] [address] [id number] [address] [place] [address], [place] [address] Jan, [facility] [address] [id number] [address] [place] [address], [place] [address] Jan, [facility] [address] [id number] [address] [place] [address], [place] [address] Jan, [facility] [address] [id number] [address] [place] [address], [place] [address] Jan, [facility] [address] [id number] [address] [place] [address], [place] [address] Jan, [facility] [address] [id number] [address] [place] [address], [place] [address] Jan, [facility] [address] [id number] [address] [place] [address], [place] [address] Dec, [facility] [address] [id number] [address] [place] [address], [place] [address] Dec, [facility] [address] [id number] [address] [place] [address], [place] [address] Dec, [facility] [address] [id number] [address] [place] [address], [place] [address] Dec, [facility] [address] [id number] [address] [place] [address], [place] [address] Nov, [facility] [address] [id number] [address] [place] [address], [place] [address] Nov, [facility] [address] [id number] [address] [place] [address], [place] [address] Oct, [facility] [address] [id number] [address] [place] [address], [place] [address] Oct, [facility] [address] [id number] [address] [place] [address], [place] [address] Oct, [facility] [address] [id number] [address] [place] [address], [place] [address] Oct, [facility] [address] [id number] [address] [place] [address], [place] [address] Sep, [facility] [address] [id number] [address] [place] [address], [place] [address] Sep, [facility] [address] [id number] [address] [place] [address], [place] [address] Sep, [facility] [address] [id number] [address] [place] [address], [place] [address] Sep, [facility] [address] [id number] [address] [place] [address], [place] [address] Aug, [facility] [address] [id number] [address] [place] [address], [place] [address] Aug, [facility] [address] [id number] [address] [place] [address], [place] [address] Aug, [facility] [address] [id number] [address] [place] [address], [place] [address] Jul, [facility] [address] [id number] [address] [place] [address], [place] [address] Jul, [facility] [address] [id number] [address] [place] [address], [place] [address] Jun, [facility] [address] [id number] [address] [place] [address], [place] [address] Jun, [facility] [address] [id number] [address] [place] [address], [place] [address] May, [facility] [address] [id number] [address] [place] [address], [place] [address] May, [facility] [address] [id number] [address] [place] [address], [place] [address] Apr, [facility] [address] [id number] [address] [place] [address], [place] [address] March, [facility] [address] [id number] [address] [place] [address], [place] [address] March, [facility] [address] [id number] [address] [place] [address], [place] [address] Feb, [facility] [address] [id number] [facility] [place] [address] Jan, [facility] [address] [id number] [address] [place] [address], [place] [address] Jan, [facility] [address] [id number] [address] [place] [address], [place] [address] Dec, [facility] [address] [id number] [address] [place] [address], [place] [address] Dec, [facility] [address] [id number] [address] [place] [address], [place] [address] Nov, [facility] [address] [id number] [address] [place] [address], [place] [address] Nov, [facility] [address] [id number] [address] [place] [address], [place] [address] Nov, [facility] [address] [id number] [address] [place] [address], [place] [address] Nov, [facility] [address] [id number] [address] [place] [address], [place] [address] Nov, [facility] [address] [id number] [address] [place] [address], [place] [address] Oct, [facility] [address] [id number] [address] [place] [address], [place] [address] 31 Oct, 2012 [facility] [address] [id number] [address] [place] [address], [place] [address] Oct, [facility] [address] [id number] [address] [place] [address], [place] [address] Oct, [facility] [address] [id number] [address] [place] [address], [place] [address] Oct, [facility] [address] [id number] [address] [place] [address], [place] [address] 05 Oct, 2012 [facility] [address] [id number] [address] [place] [address], [place] [address] 05 Oct, 2012 [facility] [address] [id number] [address] [place] [address], [place] [address] Oct, [facility] [address] [id number] [address] [place] [address], [place] [address] Sep, [facility] [address] [id number] [address] [place] [address], [place] [address] Sep, [facility] [address] [id number] [address] [place] [address], [place] [address] Sep, [facility] [address] [id number] [address] [place] [address], [place] [address] Aug, [facility] [address] [id number] [address] [place] [address], [place] [address] Aug, [facility] [address] [id number] [address] [place] [address], [place] [address] Aug, [facility] [address] [id number] [address] [place] [address], [place] [address] Aug, [facility] [address] [id number] [address] [place] [address], [place] [address] Aug, [facility] [address] [id number] [address] [place] [address], [place] [address] Jul, [facility] [address] [id number] [address] [place] [address], [place] [address] 18 Jul, 2012 [facility] [address] [id number] [address] [place] [address], [place] [address] Jun, [facility] [address] [id number] [address] [place] [address], [place] [address] May, [facility] [address] [id number] [address] [place] [address], [place] [address] May, [facility] [address] [id number] [address] [place] [address], [place] [address] Apr, [facility] [address] [id number] [address] [place] [address], [place] [address] March, [facility] [address] [id number] [address] [place] [address], [place] [address] March, [facility] [address] [id number] [address] [place] [address], [place] [address] March, [facility] [address] [id number] [address] [place] [address], [place] [address] March, [facility] [address] [id number] [address] [place] [address], [place] [address] Feb, [facility] [address] [id number] [address] [place] [address], [place] [address] Feb, [facility] [address] [id number] [address] [place] [address], [place] [address] Jan, [facility] [address] [id number] [address] [place] [address], [place] [address] Dec, [facility] [address] [id number] [address] [place] [address], [place] [address] Dec, [facility] [address] [id number] [address] [place] [address], [place] [address] Dec, [facility] [address] [id number] [address] [place] [address], [place] [address] Nov, [facility] [address] [id number] [address] [place] [address], [place] [address] Nov, [facility] [address] [id number] [address] [place] [address], [place] [address] Nov, [facility] [address] [id number] [address] [place] [address], [place] [address] Oct, [facility] [address] [id number] [address] [place] [address], [place] [address] Sep, [facility] [address] [id number] [address] [place] [address] Aug, [facility] [address] [facility] [id number] [address] [place] [id number] Aug, [facility] [address] [facility] [id number] [address] [place] [address] May, [facility] [address] [facility] [id number] [address] [place] [address] Sep, [facility] [address] [facility] [id number] [address] [place] [address] Sep, IMMUNIZATIONS No Known Immunizations SOCIAL HISTORY [...]
--- OUTSIDE RECORDS SUMMARY | 2020-03-18 15:26 | XMS REPORT ---
Author Author Jose Cruz Mercer Doctor Organization [facility] Address Unknown Phone Unavailable Care Team Providers Care Medicaid Eligibility Specialist Name Role Phone Migration, Doctor Unavailable Unavailable PROBLEMS Type Condition ICD9-CM Code [id number] Code Onset Dates Condition S tatus SNOMED Code Problem Bipolar disorder F31.9 Active 137 40501 Problem Intellectual disability F79 Active 81440306 Problem Attention-deficit hyperactiv ity disorder, predominantly inattentive type F90.0 Active 05766649 Problem Intermittent explosive disorder F63.81 Active 41308030 Problem Attention deficit hyperactivity disorder F90.9 Active 879457250 Problem Bipolar disorder, currently in remission, most recent episode unspecified F31.70 Active 45841136 Problem Moderate intellectual disability 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 Active [id number] ALLERGIES No Information ENCOUNTERS Encounter Location Date Diagnosis [place] [id number] [facility] [id number] [address] [place] [phone] Jun, Bipolar disorder F31.9 [facility] [address] [facility] [id number] [address] [place] [phone] May, Bipolar disorder F31.9 ; Int ellectual disability F79 and Attention- deficit hyperactivity disorder, predominantly inattentive type F90.0 [facility] [address] [facility] [id number] [address] [place] [phone] May, [facility] [address] [facility] [id number] [address] [place] [phone] May, Bipolar disorder F31.9 [facility] [address] [facility] [id number] [address] [place] [phone] May, Bipolar disorder F31.9 ; Att ention-deficit hyperactivity disorder, predominantly inattentive type F90.0 and Moderate intellectual disability F71 [facility] [address] [facility] [id number] [address] [place] [phone] Apr, Bipolar disorder F31.9 [facility] [address] [id number] [address] [place] [phone] Apr, Bipolar disorder F31.9 and H igh risk medication use Z79.899 [facility] [address] [id number] [address] [place] [address] March, Bipolar disorder F31.9 and H igh risk medication use Z79.899 [facility] [address] [id number] [address] [place] [phone] March, Bipolar disorder F31.[address] [facility] [id number] [place] [phone] March, Caries K02.9 [facility] [address] [id number] [address] [place] [phone] March, Bipolar disorder F31.9 [facility] [address] [id number] [address] [place] [phone] March, Bipolar disorder F31.9 [facility] [address] [id number] [address] [place] [phone] Feb, Bipolar disorder F31.9 [facility] [address] [id number] [address] [place] [phone] Feb, Bipolar disorder F31.9 ; Att ention-deficit hyperactivity disorder, predominantly inattentive type F90.0 and Moderate intellectual disability F71 [facility] [address] [id number] [address] [place] [phone] Jan, Bipolar disorder F31.9 [facility] [address] [id number] [address] [place] [phone] Jan, Bipolar disorder F31.9 [facility] [address] [id number] [address] [place] [address] Jan, Dental examination Z01.20 ; 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 status requiring routine preventive dental care K08.9 and Caries K02.9 [facility] [address] [id number] [address] [place] [phone] Jan, [facility] [address] [id number] [address] [place] [phone] Jan, Bipolar disorder F31.9 ; Mod erate intellectual disability F71 and Attention-deficit hyperactivity disorder, predominantly inattentive type F90.0 [facility] [address] [id number] [address] [place] [phone] Dec, Bipolar disorder, currently in remission, most recent episode unspecified F31.70 [facility] [address] [id number] [address] [place] [address] Dec, Bipolar disorder, currently in remission, most recent episode unspecified F31.70 [facility] [address] [id number] [address] [place] [phone] Dec, Bipolar disorder, currently in remission, most recent episode unspecified F31.70 [facility] [address] [id number] [address] [place] [phone] Dec, [facility] [address] [id number] [address] [place] [phone] Dec, Bipolar disorder, currently in remission, most recent episode unspecified F31.70 [facility] [address] [id number] [address] [place] [address] Nov, Bipolar disorder, currently in remission, most recent episode unspecified F31.70 [facility] [address] [id number] [address] [place] [phone] Nov, [facility] [address] [id number] [address] [place] [phone] Nov, [facility] [address] [id number] [address] [place] [phone] Nov, Bipolar disorder, currently in remission, most recent episode unspecified F31.70 [facility] [address] [id number] [address] [place] [phone] Nov, Bipolar disorder, currently in remission, most recent episode unspecified F31.70 [facility] [address] [id number] [address] [place] [phone] Oct, High risk medication use Z79 .899 ; Bipolar disorder F31.9 ; Moderate intellectual disability F71 and Attention-deficit hyperactivity disorder, predominantly inattentive type F90.0 [facility] [address] [id number] [address] [place] [phone] Oct, [facility] [address] [id number] [address] [place] [address] Sep, Bipolar disorder, currently in remission, most recent episode unspecified F31.70 [facility] [address] [id number] [address] [place] [phone] Sep, 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 stat us requiring routine preventive dental care K08.9 and Arrested dental caries K02.3 [facility] [address] [id number] [address] [place] [phone] Sep, Bipolar disorder, currently in remission, most recent episode unspecified F31.70 ; Moderate intellectual disability F71 and Attention-deficit hyperactivity disorder, predominantly inattentive type F90.0 [facility] [address] [id number] [address] [place] [phone] Sep, Bipolar disorder, currently in remission, most recent episode unspecified F31.70 [facility] [address] [id number] [address] [place] [phone] Aug, Bipolar disorder, currently in remission, most recent episode unspecified F31.70 [facility] [address] [id number] [address] [place] [phone] 13 Jul, 2018 Bipolar disorder, currently in remission, most recent episode unspecified F31.70 [facility] [address] [id number] [address] [place] [phone] Jul, Bipolar disorder, currently in remission, most recent episode unspecified F31.70 [facility] [address] [id number] [address] [place] [phone] Jun, [facility] [address] [id number] [address] [place] [phone] Jun, Bipolar disorder, currently in remission, most recent episode unspecified F31.70 [facility] [address] [id number] [address] [place] [phone] Jun, Dental examination Z01.20 an d Dental caries K02.9 [facility] [address] [id number] [address] [place] [phone] May, Bipolar disorder, currently in remission, most recent episode unspecified F31.70 [facility] [address] [id number] [address] [place] [phone] May, Bipolar disorder, currently in remission, most recent episode unspecified F31.70 [facility] [address] [id number] [address] [place] [phone] May, Bipolar disorder, currently in remission, most recent episode unspecified F31.70 ; Moderate intellectual disability 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 and Attention-deficit hyperactivity disorder, predominantly inattentive type F90.0 [facility] [address] [id number] [address] [place] [phone] Apr, Bipolar disorder, unspecifie d F31.9 [facility] [address] [id number] [address] [place] [phone] Apr, [facility] [address] [id number] [address] [place] [phone] Apr, [facility] [address] [id number] [address] [place] [phone] Apr, [facility] [address] [id number] [address] [place] [phone] March, [facility] [address] [id number] [address] [place] [phone] March, Bipolar disorder, currently in remission, most recent episode unspecified F31.70 ; Moderate intellectual disability F71 and Attention-deficit hyperactivity disorder, predominantly inattentive type F90.0 [facility] [address] [id number] [address] [place] [phone] Feb, [facility] [address] [id number] [address] [place] [id number] Feb, Dental examination Z01.20 [facility] [address] [id number] [address] [place] [phone] Jan, [facility] [address] [id number] [address] [place] [phone] Jan, [facility] [address] [id number] [address] [place] [phone] Dec, [facility] [address] [id number] [address] [place] [phone] Nov, [facility] [address] [id number] [address] [place] [id number] Nov, Encounter for dental exam an d cleaning w/o abnormal findings Z01.20 [facility] [address] [id number] [address] [place] [address] [phone] Nov, Dental examination Z01.20 [facility] [address] [id number] [address] [place] [phone] Oct, [facility] [address] [id number] [address] [place] [phone] Oct, Bipolar disorder, currently in remission, most recent episode unspecified F31.70 ; Moderate intellectual disability F71 and Attention-deficit hyperactivity disorder, predominantly inattentive type F90.0 [facility] [address] [id number] [address] [place] [phone] Sep, [facility] [address] [id number] [address] [place] [phone] Sep, [facility] [address] [id number] [address] [place] [phone] Aug, [facility] [address] [id number] [address] [place] [phone] Aug, Attention-deficit hyperactiv ity disorder, predominantly inattentive type F90.0 ; Moderate intellectual disability F71 and Bipolar disorder F31.9 [facility] [address] [id number] [address] [place] [address] [id number] 11 Jul, 2017 Dental examination Z01.20 an d Dental caries K02.9 [facility] [address] [facility] [id number] [address] [place] [phone] 05 Jul, 2017 [facility] [address] [facility] [id number] [address] [place] [phone] Jun, Bipolar disorder F31.9 ; Att ention-deficit hyperactivity disorder, predominantly inattentive type F90.0 and Moderate intellectual disability F71 [facility] [address] [facility] [id number] [address] [place] [phone] Jun, [facility] [address] [facility] [id number] [address] [place] [phone] May, [facility] [address] [facility] [id number] [address] [place] [phone] Apr, [facility] [address] [place] [id number] [address] [place] [phone] March, Intermittent explosive disor jocelyn F63.81 ; Attention deficit hyperactivity disorder F90.9 and Bipolar disorder F31.9 [facility] [address] [facility] [id number] [address] [place] [phone] Feb, [facility] [address] [facility] [id number] [address] [place] [phone] Jan, [facility] [address] [facility] [id number] [address] [place] [phone] 13 Dec, 2016 Encounter for immunization Z 23 [facility] [address] [facility] [id number] [address] [place] [phone] 13 Dec, 2016 Intermittent explosive disor jocelyn F63.81 ; Attention deficit hyperactivity disorder F90.9 and Bipolar disorder, currently in remission, most recent episode unspecified F31.70 [facility] [address] [id number] [address] [place] [phone] Nov, [facility] [address] [id number] [address] [place] [phone] Oct, [facility] [address] [id number] [address] [place] [phone] Oct, [facility] [address] [id number] [address] [place] [address] [id number] Oct, Dental examination Z01.20 [facility] [address] [id number] [address] [place] [phone] Sep, [facility] [address] [id number] [address] [place] [phone] Sep, [facility] [address] [id number] [address] [place] [phone] Sep, Intermittent explosive disor jocelyn F63.81 ; Bipolar disorder F31.9 and Attention deficit hyperactivity disorder F90.9 [facility] [address] [id number] [address] [place] [phone] Aug, [facility] [address] [id number] [address] [place] [phone] Aug, [facility] [address] [id number] [address] [place] [phone] Aug, [facility] [address] [id number] [address] [place] [phone] Aug, Attention deficit hyperactiv ity disorder F90.9 [facility] [address] [id number] [address] [place] [phone] Jul, [facility] [address] [id number] [address] [place] [phone] Jun, [facility] [address] [id number] [address] [place] [phone] May, [facility] [address] [id number] [address] [place] [phone] Apr, [facility] [address] [id number] [address] [place] [phone] Apr, Bipolar disorder F31.9 ; Att ention deficit hyperactivity disorder F90.9 and Intermittent explosive disorder F63.81 [facility] [address] [id number] [address] [place] [phone] March, [facility] [address] [id number] [address] [place] [phone] Feb, [facility] [address] [id number] [address] [place] [phone] Feb, [facility] [address] [id number] [address] [place] [phone] Jan, [facility] [address] [id number] [address] [place] [phone] Jan, [facility] [address] [id number] [address] [place] [phone] Dec, [facility] [address] [id number] [address] [place] [phone] Nov, [facility] [address] [id number] [address] [place] [phone] Nov, [facility] [address] [facility] [id number] [address] [place] [phone] Nov, Attention deficit hyperactiv ity disorder F90.9 ; Intermittent explosive disorder F63.81 and Bipolar disorder F31.9 [facility] [address] [id number] [address] [place] [phone] Oct, [facility] [address] [id number] [address] [place] [phone] Oct, [facility] [address] [facility] [id number] [address] [place] [phone] Sep, [facility] [address] [id number] [address] [place] [phone] Aug, [facility] [address] [id number] [address] [place] [phone] Jul, [facility] [address] [id number] [address] [place] [id number] Jul, [facility] [address] [id number] [address] [place] [phone] Jul, Anxiety, generalized 300.02 ; Bipolar disorder, unspecified 296.80 ; 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.00 ; 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 and Impulse control disorder, unspecified 312.30 [facility] [address] [id number] [address] [place] [phone] Jul, [facility] [address] [id number] [address] [place] [phone] Jun, [facility] [address] [id number] [address] [place] [phone] May, [facility] [address] [id number] [address] [place] [phone] Apr, [facility] [address] [facility] [id number] [address] [place] [phone] Apr, Bipolar disorder, unspecifie d 296.80 ; Generalized anxiety disorder 300.02 and 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.00 [facility] [address] [id number] [address] [place] [phone] Apr, [facility] [address] [id number] [address] [place] [phone] March, [facility] [address] [id number] [address] [place] [phone] March, [facility] [address] [id number] [address] [place] [phone] March, [facility] [address] [id number] [address] [place] [address] [place] [address] March, [facility] [address] [id number] [address] [place] [address], [place] [address] 14 Feb, 2015 [facility] [address] [id number] [address] [place] [address], [place] [address] Feb, [facility] [address] [id number] [address] [place] [address], [place] [address] Jan, [facility] [address] [id number] [address] [place] [address], [place] [address] Jan, [facility] [address] [id number] [address] [place] [address], [place] [address] Jan, [facility] [address] [id number] [address] [place] [address], [place] [address] Jan, [facility] [address] [id number] [address] [place] [address], [place] [address] Jan, [facility] [address] [id number] [address] [place] [address], [place] [address] Dec, [facility] [address] [id number] [address] [place] [address], [place] [address] Dec, [facility] [address] [id number] [address] [place] [address], [place] [address] Nov, [facility] [address] [id number] [address] [place] [address], [place] [address] Nov, [facility] [address] [id number] [address] [place] [address], [place] [address] Nov, [facility] [address] [id number] [address] [place] [address], [place] [address] Oct, [facility] [address] [id number] [address] [place] [address], [place] [address] Oct, [facility] [address] [id number] [address] [place] [address], [place] [address] Oct, [facility] [address] [id number] [address] [place] [address], [place] [address] Oct, [facility] [address] [id number] [address] [place] [address], [place] [address] Oct, [facility] [address] [id number] [address] [place] [address], [place] [address] Oct, [facility] [address] [id number] [address] [place] [address], [place] [address] Sep, [facility] [address] [id number] [address] [place] [address], [place] [address] Sep, [facility] [address] [id number] [address] [place] [address], [place] [address] Sep, [facility] [address] [id number] [address] [place] [address], [place] [address] Aug, [facility] [address] [id number] [address] [place] [address], [place] [address] Aug, [facility] [address] [id number] [address] [place] [address], [place] [address] Jul, [facility] [address] [id number] [address] [place] [address], [place] [address] Jul, [facility] [address] [id number] [address] [place] [address], [place] [address] Jun, [facility] [address] [id number] [address] [place] [address], [place] [address] Jun, [facility] [address] [id number] [address] [place] [address], [place] [address] Jun, [facility] [address] [id number] [address] [place] [address], [place] [address] Jun, [facility] [address] [id number] [address] [place] [address], [place] [address] May, [facility] [address] [id number] [address] [place] [address], [place] [address] May, [facility] [address] [id number] [address] [place] [address], [place] [address] May, [facility] [address] [id number] [address] [place] [address], [place] [address] Apr, [facility] [address] [id number] [address] [place] [address], [place] [address] Apr, [facility] [address] [id number] [address] [place] [address], [place] [address] Apr, [facility] [address] [id number] [address] [place] [address], [place] [address] Apr, [facility] [address] [id number] [address] [place] [address], [place] [address] March, [facility] [address] [id number] [address] [place] [address], [place] [address] March, [facility] [address] [id number] [address] [place] [address], [place] [address] March, [facility] [address] [id number] [address] [place] [address], [place] [address] March, [facility] [address] [id number] [address] [place] [address], [place] [address] Feb, [facility] [address] [id number] [address] [place] [address], [place] [address] Feb, [facility] [address] [id number] [address] [place] [address], [place] [address] Jan, [facility] [address] [id number] [address] [place] [address], [place] [address] Jan, [facility] [address] [id number] [address] [place] [address], [place] [address] Jan, [facility] [address] [id number] [address] [place] [address], [place] [address] Jan, [facility] [address] [id number] [facility] [place] [address] Jan, [facility] [address] [id number] [address] [place] [address], [place] [address] Jan, [facility] [address] [id number] [address] [place] [address], [place] [address] Jan, [facility] [address] [id number] [address] [place] [address], [place] [address] Jan, [facility] [address] [id number] [address] [place] [address], [place] [address] Dec, [facility] [address] [id number] [address] [place] [address], [place] [address] Dec, [facility] [address] [id number] [address] [place] [address], [place] [address] Dec, [facility] [address] [id number] [address] [place] [address], [place] [address] Dec, [facility] [address] [id number] [address] [place] [address], [place] [address] Nov, [facility] [address] [id number] [address] [place] [address], [place] [address] Nov, [facility] [address] [id number] [address] [place] [address], [place] [address] Oct, [facility] [address] [id number] [address] [place] [address], [place] [address] Oct, [facility] [address] [id number] [address] [place] [address], [place] [address] Oct, [facility] [address] [id number] [address] [place] [address], [place] [address] Oct, [facility] [address] [id number] [address] [place] [address], [place] [address] Sep, [facility] [address] [id number] [address] [place] [address], [place] [address] Sep, [facility] [address] [id number] [address] [place] [address], [place] [address] Sep, [facility] [address] [id number] [address] [place] [address], [place] [address] Sep, [facility] [address] [id number] [address] [place] [address], [place] [address] Aug, [facility] [address] [id number] [address] [place] [address], [place] [address] Aug, [facility] [address] [id number] [address] [place] [address], [place] [address] Aug, [facility] [address] [id number] [address] [place] [address], [place] [address] Jul, [facility] [address] [id number] [address] [place] [address], [place] [address] Jul, [facility] [address] [id number] [address] [place] [address], [place] [address] Jun, [facility] [address] [id number] [address] [place] [address], [place] [address] Jun, [facility] [address] [id number] [address] [place] [address], [place] [address] May, [facility] [address] [id number] [address] [place] [address], [place] [address] May, [facility] [address] [id number] [address] [place] [address], [place] [address] Apr, [facility] [address] [id number] [address] [place] [address], [place] [address] March, [facility] [address] [id number] [address] [place] [address], [place] [address] March, [facility] [address] [id number] [address] [place] [address], [place] [address] Feb, [facility] [address] [id number] [address] [place] [address], [place] [address] Jan, [facility] [address] [id number] [address] [place] [address], [place] [address] Jan, [facility] [address] [id number] [address] [place] [address], [place] [address] Dec, [facility] [address] [id number] [address] [place] [address], [place] [address] Dec, [facility] [address] [id number] [address] [place] [address], [place] [address] Nov, [facility] [address] [id number] [address] [place] [address], [place] [address] Nov, [facility] [address] [id number] [address] [place] [address], [place] [address] Nov, [facility] [address] [id number] [address] [place] [address], [place] [address] Nov, [facility] [address] [id number] [address] [place] [address], [place] [address] Nov, [facility] [address] [id number] [address] [place] [address], [place] [address] Oct, [facility] [address] [id number] [address] [place] [address], [place] [address] 31 Oct, 2012 [facility] [address] [id number] [address] [place] [address], [place] [address] Oct, [facility] [address] [id number] [address] [place] [address], [place] [address] Oct, [facility] [address] [id number] [address] [place] [address], [place] [address] Oct, [facility] [address] [id number] [address] [place] [address], [place] [address] Oct, [facility] [address] [id number] [address] [place] [address], [place] [address] Oct, [facility] [address] [id number] [address] [place] [address], [place] [address] Oct, [facility] [address] [id number] [address] [place] [address], [place] [address] Sep, [facility] [address] [id number] [address] [place] [address], [place] [address] Sep, [facility] [address] [id number] [address] [place] [address], [place] [address] Sep, [facility] [address] [id number] [address] [place] [address], [place] [address] Aug, [facility] [address] [id number] [address] [place] [address], [place] [address] Aug, [facility] [address] [id number] [address] [place] [address], [place] [address] Aug, [facility] [address] [id number] [address] [place] [address], [place] [address] Aug, [facility] [address] [id number] [address] [place] [address], [place] [address] Aug, [facility] [address] [id number] [address] [place] [address], [place] [address] Jul, [facility] [address] [id number] [address] [place] [address], [place] [address] Jul, [facility] [address] [id number] [address] [place] [address], [place] [address] Jun, [facility] [address] [id number] [address] [place] [address], [place] [address] May, [facility] [address] [id number] [address] [place] [address], [place] [address] May, [facility] [address] [id number] [address] [place] [address], [place] [address] Apr, [facility] [address] [id number] [address] [place] [address], [place] [address] March, [facility] [address] [id number] [address] [place] [address], [place] [address] March, [facility] [address] [id number] [address] [place] [address], [place] [address] March, [facility] [address] [id number] [address] [place] [address], [place] [address] March, [facility] [address] [id number] [address] [place] [address], [place] [address] Feb, [facility] [address] [id number] [address] [place] [address], [place] [address] Feb, [facility] [address] [id number] [address] [place] [address], [place] [address] Jan, [facility] [address] [id number] [address] [place] [address], [place] [address] Dec, [facility] [address] [id number] [address] [place] [address], [place] [address] Dec, [facility] [address] [id number] [address] [place] [address], [place] [address] Dec, [facility] [address] [id number] [address] [place] [address], [place] [address] Nov, [facility] [address] [id number] [address] [place] [address], [place] [address] Nov, [facility] [address] [id number] [address] [place] [address], [place] [address] Nov, [facility] [address] [id number] [address] [place] [address], [place] [address] Oct, [facility] [address] [id number] [address] [place] [address], [place] [address] Sep, [facility] [address] [id number] [address] [place] [address], [place] [address] Aug, [facility] [address] [facility] [id number] [address] [place] [address] Aug, [facility] [address] [facility] [id number] [address] [place] [address] May, [facility] [address] [facility] [id number] [address] [place] [address] Sep, [facility] [address] [facility] [id number] [address] [place] [address] Sep, IMMUNIZATIONS No Known Immunizations SOCIAL HISTORY [...]
--- OUTSIDE RECORDS SUMMARY | 2020-03-18 15:26 | XMS REPORT ---
Author Author Jose Cruz Mercer Doctor Organization [facility] Address Unknown Phone Unavailable Care Team Providers Care Growth Hacker Name Role Phone Migration, Doctor Unavailable Unavailable PROBLEMS Type Condition ICD9-CM Code [id number] Code Onset Dates Condition S tatus SNOMED Code Problem Bipolar disorder F31.9 Active 137 30375 Problem Intellectual disability F79 Active [id number] Problem Attention-deficit hyperactiv ity disorder, predominantly inattentive type F90.0 Active 20357573 Problem Intermittent explosive disorder F63.81 Active 02210501 Problem Attention deficit hyperactivity disorder F90.9 Active 668292580 Problem Bipolar disorder, currently in remission, most recent episode unspecified F31.70 Active 36155302 Problem Moderate intellectual disability F71 Active [id number] ALLERGIES No Information ENCOUNTERS Encounter Location Date Diagnosis [facility] [address] [facility] [id number] [address] [place] [phone] Jun, [facility] [address] [facility] [id number] [address] [place] [phone] Jun, Bipolar disorder F31.9 [facility] [address] [facility] [id number] [address] [place] [phone] May, Bipolar disorder F31.9 ; Int ellectual disability F79 and Attention- deficit hyperactivity disorder, predominantly inattentive type F90.0 [facility] [address] [facility] [id number] [address] [place] [phone] May, [facility] [address] [facility] [id number] [address] [place] [phone] May, Bipolar disorder F31.9 [facility] [address] [facility] [id number] [address] [place] [phone] May, Bipolar disorder F31.9 ; Att ention-deficit hyperactivity disorder, predominantly inattentive type F90.0 and Moderate intellectual disability F71 [facility] [address] [facility] [id number] [address] [place] [phone] Apr, Bipolar disorder F31.9 [facility] [address] [id number] [address] [place] [phone] Apr, Bipolar disorder F31.9 and H igh risk medication use Z79.899 [facility] [address] [id number] [address] [place] [phone] March, Bipolar disorder F31.9 and H igh risk medication use Z79.899 [facility] [address] [id number] [address] [place] [phone] March, Bipolar disorder F31.[address] [id number] [place] [phone] March, Caries K02.9 [facility] [address] [id number] [address] [place] [phone] March, Bipolar disorder F31.9 [facility] [address] [id number] [address] [place] [phone] March, Bipolar disorder F31.9 [facility] [address] [id number] [address] [place] [phone] Feb, Bipolar disorder F31.9 [facility] [address] [id number] [address] [place] [phone] Feb, Bipolar disorder F31.9 ; Att ention-deficit hyperactivity disorder, predominantly inattentive type F90.0 and Moderate intellectual disability 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 [facility] [address] [id number] [address] [place] [phone] Jan, Bipolar disorder F31.9 [facility] [address] [id number] [address] [place] [phone] Jan, Bipolar disorder F31.9 [facility] [address] [id number] [address] [place] [phone] Jan, Dental examination Z01.20 ; 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 status requiring routine preventive dental care K08.9 and Caries K02.9 [facility] [address] [id number] [address] [place] [phone] Jan, [facility] [address] [id number] [address] [place] [phone] Jan, Bipolar disorder F31.9 ; Mod erate intellectual disability F71 and Attention-deficit hyperactivity disorder, predominantly inattentive type F90.0 [facility] [address] [id number] [address] [place] [phone] Dec, Bipolar disorder, currently in remission, most recent episode unspecified F31.70 [facility] [address] [id number] [address] [place] [phone] Dec, Bipolar disorder, currently in remission, most recent episode unspecified F31.70 [facility] [address] [id number] [address] [place] [phone] Dec, Bipolar disorder, currently in remission, most recent episode unspecified F31.70 [facility] [address] [id number] [address] [place] [phone] Dec, [facility] [address] [id number] [address] [place] [phone] Dec, Bipolar disorder, currently in remission, most recent episode unspecified F31.70 [facility] [address] [id number] [address] [place] [phone] Nov, Bipolar disorder, currently in remission, most recent episode unspecified F31.70 [facility] [address] [id number] [address] [place] [phone] Nov, [facility] [address] [id number] [address] [place] [phone] Nov, [facility] [address] [id number] [address] [place] [phone] Nov, Bipolar disorder, currently in remission, most recent episode unspecified F31.70 [facility] [address] [id number] [address] [place] [phone] Nov, Bipolar disorder, currently in remission, most recent episode unspecified F31.70 [facility] [address] [facility] [id number] [address] [place] [phone] Oct, High risk medication use Z79 .899 ; Bipolar disorder F31.9 ; Moderate intellectual disability F71 and Attention-deficit hyperactivity disorder, predominantly inattentive type F90.0 [facility] [address] [facility] [id number] [address] [place] [phone] Oct, [facility] [address] [facility] [id number] [address] [place] [phone] Sep, Bipolar disorder, currently in remission, most recent episode unspecified F31.70 [facility] [address] [id number] [address] [place] [id number] Sep, 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 stat us requiring routine preventive dental care K08.9 and Arrested dental caries K02.3 [facility] [address] [facility] [id number] [address] [place] [phone] Sep, Bipolar disorder, currently in remission, most recent episode unspecified F31.70 ; Moderate intellectual disability 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 and Attention-deficit hyperactivity disorder, predominantly inattentive type F90.0 [facility] [address] [facility] [id number] [address] [place] [phone] Sep, Bipolar disorder, currently in remission, most recent episode unspecified F31.70 [facility] [address] [facility] [id number] [address] [place] [phone] Aug, Bipolar disorder, currently in remission, most recent episode unspecified F31.70 [facility] [address] [facility] [id number] [address] [place] [phone] 13 Jul, 2018 Bipolar disorder, currently in remission, most recent episode unspecified F31.70 [facility] [address] [facility] [id number] [address] [place] [phone] Jul, Bipolar disorder, currently in remission, most recent episode unspecified F31.70 [facility] [address] [id number] [address] [place] [phone] Jun, [facility] [address] [id number] [address] [place] [phone] Jun, Bipolar disorder, currently in remission, most recent episode unspecified F31.70 [facility] [address] [id number] [address] [place] [id number] Jun, Dental examination Z01.20 an d Dental caries K02.9 [facility] [address] [id number] [address] [place] [phone] May, Bipolar disorder, currently in remission, most recent episode unspecified F31.70 [facility] [address] [id number] [address] [place] [phone] May, Bipolar disorder, currently in remission, most recent episode unspecified F31.70 [facility] [address] [id number] [address] [place] [phone] May, Bipolar disorder, currently in remission, most recent episode unspecified F31.70 ; Moderate intellectual disability F71 and Attention-deficit hyperactivity disorder, predominantly inattentive type F90.0 [facility] [address] [id number] [address] [place] [phone] Apr, Bipolar disorder, unspecifie d F31.9 [facility] [address] [id number] [address] [place] [phone] Apr, [facility] [address] [id number] [address] [place] [phone] Apr, [facility] [address] [id number] [address] [place] [phone] Apr, [facility] [address] [id number] [address] [place] [phone] March, [facility] [address] [id number] [address] [place] [phone] March, Bipolar disorder, currently in remission, most recent episode unspecified F31.70 ; Moderate intellectual disability 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 and Attention-deficit hyperactivity disorder, predominantly inattentive type F90.0 [facility] [address] [id number] [address] [place] [phone] Feb, [facility] [address] [id number] [address] [place] [address] [id number] Feb, Dental examination Z01.20 [facility] [address] [id number] [address] [place] [phone] Jan, [facility] [address] [id number] [address] [place] [phone] Jan, [facility] [address] [id number] [address] [place] [phone] Dec, [facility] [address] [id number] [address] [place] [phone] Nov, [facility] [address] [id number] [address] [place] [id number] Nov, Encounter for dental exam an d cleaning w/o abnormal findings Z01.20 [facility] [address] [id number] [address] [place] [phone] Nov, Dental examination Z01.20 [facility] [address] [id number] [address] [place] [phone] Oct, [facility] [address] [id number] [address] [place] [phone] Oct, Bipolar disorder, currently in remission, most recent episode unspecified F31.70 ; Moderate intellectual disability F71 and Attention-deficit hyperactivity disorder, predominantly inattentive type F90.0 [facility] [address] [id number] [address] [place] [phone] Sep, [facility] [address] [id number] [address] [place] [phone] Sep, [facility] [address] [id number] [address] [place] [phone] Aug, [facility] [address] [facility] [id number] [address] [place] [phone] Aug, Attention-deficit hyperactiv ity disorder, predominantly inattentive type F90.0 ; Moderate intellectual disability F71 and Bipolar disorder F31.9 [facility] [address] [id number] [address] [place] [address] [id number] [phone] Jul, 2017 Dental examination Z01.20 an d Dental caries K02.9 [facility] [address] [id number] [address] [place] [phone] Jul, [facility] [address] [facility] [id number] [address] [place] [phone] Jun, Bipolar disorder F31.9 ; Att ention-deficit hyperactivity disorder, predominantly inattentive type F90.0 and Moderate intellectual disability 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9 and Bipolar disorder F31.9 [facility] [address] [facility] [id number] [address] [place] [phone] Feb, [facility] [address] [id number] [address] [place] [phone] Jan, [facility] [address] [facility] [id number] [address] [place] [phone] 13 Dec, 2016 Encounter for immunization Z 23 [facility] [address] [facility] [id number] [address] [place] [phone] Dec, Intermittent explosive disor jocelyn F63.81 ; Attention deficit hyperactivity disorder F90.9 and Bipolar disorder, currently in remission, most recent episode unspecified F31.70 [facility] [address] [id number] [address] [place] [phone] Nov, [facility] [address] [id number] [address] [place] [phone] Oct, [facility] [address] [id number] [address] [place] [phone] Oct, [facility] [address] [id number] [address] [place] [address] [phone] Oct, Dental examination Z01.20 [facility] [address] [id number] [address] [place] [phone] Sep, [facility] [address] [id number] [address] [place] [phone] Sep, [facility] [address] [id number] [address] [place] [phone] Sep, Intermittent explosive disor jocelyn F63.81 ; Bipolar disorder F31.9 and Attention deficit hyperactivity disorder F90.9 [facility] [address] [id number] [address] [place] [phone] Aug, [facility] [address] [id number] [address] [place] [phone] Aug, [facility] [address] [id number] [address] [place] [phone] Aug, [facility] [address] [id number] [address] [place] [phone] Aug, Attention deficit hyperactiv ity disorder F90.9 [facility] [address] [id number] [address] [place] [phone] Jul, [facility] [address] [id number] [address] [place] [phone] Jun, [facility] [address] [id number] [address] [place] [phone] May, [facility] [address] [id number] [address] [place] [phone] Apr, [facility] [address] [id number] [address] [place] [phone] Apr, Bipolar disorder F31.9 ; Att ention deficit hyperactivity disorder F90.9 and Intermittent explosive disorder F63.81 [facility] [address] [id number] [address] [place] [phone] March, [facility] [address] [id number] [address] [place] [phone] Feb, [facility] [address] [id number] [address] [place] [phone] Feb, [facility] [address] [id number] [address] [place] [phone] Jan, [facility] [address] [id number] [address] [place] [phone] Jan, [facility] [address] [id number] [address] [place] [phone] Dec, [facility] [address] [id number] [address] [place] [phone] Nov, [facility] [address] [id number] [address] [place] [phone] Nov, [facility] [address] [id number] [address] [place] [phone] Nov, Attention deficit hyperactiv ity disorder F90.9 ; Intermittent explosive disorder F63.81 and Bipolar disorder F31.9 [facility] [address] [id number] [address] [place] [phone] Oct, [facility] [address] [id number] [address] [place] [phone] Oct, [facility] [address] [id number] [address] [place] [phone] Sep, [facility] [address] [id number] [address] [place] [phone] Aug, [facility] [address] [id number] [address] [place] [phone] Jul, [facility] [address] [id number] [address] [place] [phone] Jul, [facility] [address] [id number] [address] [place] [phone] Jul, Anxiety, generalized 300.02 ; Bipolar disorder, unspecified 296.80 ; 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.00 ; 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 and Impulse control disorder, unspecified 312.30 [facility] [address] [facility] [id number] [address] [place] [phone] Jul, [facility] [address] [id number] [address] [place] [phone] Jun, [facility] [address] [id number] [address] [place] [phone] May, [facility] [address] [facility] [id number] [address] [place] [phone] Apr, [facility] [address] [id number] [address] [place] [phone] Apr, Bipolar disorder, unspecifie d 296.80 ; Generalized anxiety disorder 300.02 and 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.00 [facility] [address] [id number] [address] [place] [phone] Apr, [facility] [address] [facility] [id number] [address] [place] [phone] March, [facility] [address] [facility] [id number] [address] [place] [phone] March, [facility] [address] [id number] [address] [place] [address] [place] [phone] March, [facility] [address] [id number] [address] [place] [address], [place] [phone] March, [facility] [address] [id number] [address] [place] [address], [place] [phone] Feb, [facility] [address] [id number] [address] [place] [address], [place] [phone] Feb, [facility] [address] [id number] [address] [place] [address], [place] [phone] Jan, [facility] [address] [id number] [address] [place] [address], [place] [address] Jan, [facility] [address] [id number] [address] [place] [address], [place] [phone] Jan, [facility] [address] [id number] [address] [place] [address], [place] [phone] Jan, [facility] [address] [id number] [address] [place] [address], [place] [phone] Jan, [facility] [address] [id number] [address] [place] [address], [place] [phone] Dec, [facility] [address] [id number] [address] [place] [address], [place] [phone] Dec, [facility] [address] [id number] [address] [place] [address], [place] [phone] Nov, [facility] [address] [id number] [address] [place] [address], [place] [address] Nov, [facility] [address] [id number] [address] [place] [address], [place] [address] Nov, [facility] [address] [id number] [address] [place] [address], [place] [address] Oct, [facility] [address] [id number] [address] [place] [address], [place] [address] Oct, [facility] [address] [id number] [address] [place] [address], [place] [address] Oct, [facility] [address] [id number] [address] [place] [address], [place] [address] Oct, [facility] [address] [id number] [address] [place] [address], [place] [address] Oct, [facility] [address] [id number] [address] [place] [address], [place] [address] Oct, [facility] [address] [id number] [address] [place] [address], [place] [address] Sep, [facility] [address] [id number] [address] [place] [address], [place] [address] Sep, [facility] [address] [id number] [address] [place] [address], [place] [id number] Sep, [facility] [address] [id number] [address] [place] [address], [place] [address] Aug, [facility] [address] [id number] [address] [place] [address], [place] [address] Aug, [facility] [address] [id number] [address] [place] [address], [place] [address] Jul, [facility] [address] [id number] [address] [place] [address], [place] [address] Jul, [facility] [address] [id number] [address] [place] [address], [place] [address] Jun, [facility] [address] [id number] [address] [place] [address], [place] [id number] Jun, [facility] [address] [id number] [address] [place] [address], [place] [address] Jun, [facility] [address] [id number] [address] [place] [address], [place] [address] Jun, [facility] [address] [id number] [address] [place] [address], [place] [address] May, [facility] [address] [id number] [facility] [place] [address] May, [facility] [address] [id number] [address] [place] [address], [place] [address] May, [facility] [address] [id number] [address] [place] [address], [place] [address] Apr, [facility] [address] [id number] [address] [place] [address], [place] [address] Apr, [facility] [address] [id number] [address] [place] [address], [place] [address] Apr, [facility] [facility] [address] [id number] [address] [place] [address], [place] [address] Apr, [facility] [address] [id number] [address] [place] [address], [place] [address] March, [facility] [address] [id number] [address] [place] [address], [place] [address] March, [facility] [address] [id number] [address] [place] [address], [place] [address] March, [facility] [address] [id number] [address] [place] [address], [place] [address] March, [facility] [address] [id number] [address] [place] [address], [place] [address] Feb, [facility] [address] [id number] [address] [place] [address], [place] [address] Feb, [facility] [address] [id number] [address] [place] [address], [place] [address] Jan, [facility] [address] [id number] [address] [place] [address], [place] [address] Jan, [facility] [address] [id number] [address] [place] [address], [place] [address] Jan, [facility] [address] [id number] [facility] [place] [address] Jan, [facility] [address] [id number] [address] [place] [address], [place] [address] Jan, [facility] [address] [id number] [facility] [place] [address] Jan, [facility] [address] [id number] [address] [place] [address], [place] [address] Jan, [facility] [address] [id number] [address] [place] [address], [place] [address] Jan, [facility] [address] [id number] [address] [place] [address], [place] [address] Dec, [facility] [address] [id number] [address] [place] [address], [place] [address] Dec, [facility] [address] [id number] [address] [place] [address], [place] [address] Dec, [facility] [address] [id number] [address] [place] [address], [place] [address] Dec, [facility] [address] [id number] [address] [place] [address], [place] [address] Nov, [facility] [address] [id number] [address] [place] [address], [place] [address] Nov, [facility] [address] [id number] [address] [place] [address], [place] [address] Oct, [facility] [address] [id number] [address] [place] [address], [place] [address] Oct, [facility] [address] [id number] [address] [place] [address], [place] [address] Oct, [facility] [address] [id number] [address] [place] [address], [place] [address] Oct, [facility] [address] [id number] [address] [place] [address], [place] [address] Sep, [facility] [address] [id number] [address] [place] [address], [place] [address] Sep, [facility] [address] [id number] [address] [place] [address], [place] [address] Sep, [facility] [address] [id number] [address] [place] [address], [place] [address] Sep, [facility] [address] [id number] [address] [place] [address], [place] [address] Aug, [facility] [address] [id number] [address] [place] [address], [place] [address] Aug, [facility] [address] [id number] [address] [place] [address], [place] [address] Aug, [facility] [address] [id number] [address] [place] [address], [place] [address] Jul, [facility] [address] [id number] [address] [place] [address], [place] [address] Jul, [facility] [address] [id number] [address] [place] [address], [place] [address] Jun, [facility] [address] [id number] [address] [place] [address], [place] [address] Jun, [facility] [address] [id number] [address] [place] [address], [place] [address] May, [facility] [address] [id number] [address] [place] [address], [place] [address] May, [facility] [address] [id number] [address] [place] [address], [place] [address] Apr, [facility] [address] [id number] [address] [place] [address], [place] [address] March, [facility] [address] [id number] [address] [place] [address], [place] [address] March, [facility] [address] [id number] [address] [place] [address], [place] [address] Feb, [facility] [address] [id number] [address] [place] [address], [place] [address] Jan, [facility] [address] [id number] [address] [place] [address], [place] [address] Jan, [facility] [address] [id number] [address] [place] [address], [place] [address] Dec, [facility] [address] [id number] [address] [place] [address], [place] [address] Dec, [facility] [address] [id number] [address] [place] [address], [place] [address] Nov, [facility] [address] [id number] [address] [place] [address], [place] [address] Nov, [facility] [address] [id number] [address] [place] [address], [place] [address] Nov, [facility] [address] [id number] [address] [place] [address], [place] [address] Nov, [facility] [address] [id number] [address] [place] [address], [place] [address] Nov, [facility] [address] [id number] [address] [place] [address], [place] [address] Oct, [facility] [address] [id number] [address] [place] [address], [place] [address] 31 Oct, 2012 [facility] [address] [id number] [address] [place] [address], [place] [address] Oct, [facility] [address] [id number] [address] [place] [address], [place] [address] Oct, [facility] [address] [id number] [address] [place] [address], [place] [address] Oct, [facility] [address] [id number] [address] [place] [address], [place] [address] Oct, [facility] [address] [id number] [address] [place] [address], [place] [address] Oct, [facility] [address] [id number] [address] [place] [address], [place] [address] Oct, [facility] [address] [id number] [address] [place] [address], [place] [address] Sep, [facility] [address] [id number] [address] [place] [address], [place] [address] Sep, [facility] [address] [id number] [address] [place] [address], [place] [address] Sep, [facility] [address] [id number] [address] [place] [address], [place] [address] Aug, [facility] [address] [id number] [address] [place] [address], [place] [address] Aug, [facility] [address] [id number] [address] [place] [address], [place] [address] Aug, [facility] [address] [id number] [address] [place] [address], [place] [address] Aug, [facility] [address] [id number] [address] [place] [address], [place] [address] Aug, [facility] [address] [id number] [address] [place] [address], [place] [address] Jul, [facility] [address] [id number] [address] [place] [address], [place] [address] 18 Jul, 2012 [facility] [address] [id number] [address] [place] [address], [place] [address] Jun, [facility] [address] [id number] [address] [place] [address], [place] [address] May, [facility] [address] [id number] [address] [place] [address], [place] [address] May, [facility] [address] [id number] [address] [place] [address], [place] [address] Apr, [facility] [address] [id number] [address] [place] [address], [place] [address] March, [facility] [address] [id number] [address] [place] [address], [place] [address] March, [facility] [address] [id number] [address] [place] [address], [place] [address] March, [facility] [address] [id number] [address] [place] [address], [place] [address] March, [facility] [address] [id number] [address] [place] [address], [place] [address] Feb, [facility] [address] [id number] [address] [place] [address], [place] [address] Feb, [facility] [address] [id number] [address] [place] [address], [place] [address] Jan, [facility] [address] [id number] [address] [place] [address], [place] [address] Dec, [facility] [address] [id number] [address] [place] [address], [place] [address] Dec, [facility] [address] [id number] [address] [place] [address], [place] [address] Dec, [facility] [address] [id number] [address] [place] [address], [place] [address] Nov, [facility] [address] [id number] [address] [place] [address], [place] [address] Nov, [facility] [address] [id number] [address] [place] [address], [place] [address] Nov, [facility] [address] [id number] [address] [place] [address], [place] [address] Oct, [facility] [address] [id number] [address] [place] [address], [place] [address] Sep, [facility] [address] [facility] [id number] [address] [place] [address] Aug, [facility] [address] [facility] [id number] [address] [place] [address] Aug, [facility] [address] [facility] [id number] [address] [place] [address] May, [facility] [address] [facility] [id number] [address] [place] [address] Sep, [facility] [address] [facility] [id number] [address] [place] [address] Sep, IMMUNIZATIONS No Known Immunizations SOCIAL HISTORY [...]
--- OUTSIDE RECORDS SUMMARY | 2020-03-18 15:26 | XMS REPORT ---
Author Author Jose Cruz Mercer Doctor Organization [facility] Address Unknown Phone Unavailable Care Team Providers Care Make Up Editor Name Role Phone Migration, Doctor Unavailable Unavailable PROBLEMS Type Condition ICD9-CM Code OMI98-OR Code Onset Dates Condition S tatus SNOMED Code Problem Bipolar disorder F31.9 Active 137 70279 Problem Intellectual disability F79 Active 63921609 Problem Attention-deficit hyperactiv ity disorder, predominantly inattentive type F90.0 Active 92452428 Problem Intermittent explosive disorder F63.81 Active 50638150 Problem Attention deficit hyperactivity disorder F90.9 Active 215787714 Problem Bipolar disorder, currently in remission, most recent episode unspecified F31.70 Active 89914522 Problem Moderate intellectual disability 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 Active 80358425 ALLERGIES No Information ENCOUNTERS Encounter Location Date Diagnosis [place] [address] [facility] [id number] [address] [place] [address] Aug, [facility] [address] [facility] [id number] [address] [place] [address] Jul, Bipolar disorder F31.9 [facility] [address] [facility] [id number] [address] [place] [address] Jul, Acute gastroenteritis K52.9 ; Intellectual disability F79 and Bipolar disorder F31.9 [facility] [address] [facility] [id number] [address] [place] [address] Jun, [facility] [address] [facility] [id number] [address] [place] [address] Jun, Bipolar disorder F31.9 [facility] [address] [facility] [id number] [address] [place] [address] May, Bipolar disorder F31.9 ; Int ellectual disability F79 and Attention- deficit hyperactivity disorder, predominantly inattentive type F90.0 [facility] [address] [facility] [id number] [address] [place] [address] May, [facility] [address] [facility] [id number] [address] [place] [address] May, Bipolar disorder F31.9 [facility] [address] [facility] [id number] [address] [place] [address] May, Bipolar disorder F31.9 ; Att ention-deficit hyperactivity disorder, predominantly inattentive type F90.0 and Moderate intellectual disability F71 [facility] [address] [id number] [address] [place] [address] Apr, Bipolar disorder F31.9 [facility] [address] [id number] [address] [place] [address] Apr, Bipolar disorder F31.9 and H igh risk medication use Z79.899 [facility] [address] [facility] [id number] [address] [place] [address] March, Bipolar disorder F31.9 and H igh risk medication use Z79.899 [facility] [address] [id number] [address] [place] [address] March, Bipolar disorder F31.9 [facility] [place] [address] MADHAV PATTERSON [id number] [place] [address] March, Caries K02.9 [facility] [address] [facility] [id number] [address] [place] [address] March, Bipolar disorder F31.9 [facility] [address] [facility] [id number] [address] [place] [address] March, Bipolar disorder F31.9 [facility] [address] [id number] [address] [place] [address] Feb, Bipolar disorder F31.9 [facility] [address] [facility] [id number] [address] [place] [address] Feb, Bipolar disorder F31.9 ; Att ention-deficit hyperactivity disorder, predominantly inattentive type F90.0 and Moderate intellectual disability F71 [facility] [address] [id number] [address] [place] [address] Jan, Bipolar disorder F31.9 [facility] [address] [id number] [address] [place] [address] Jan, Bipolar disorder F31.9 [facility] [address] [id number] [address] [place] [address] Jan, Dental examination Z01.20 ; 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 status requiring routine preventive dental care K08.9 and Caries K02.9 [facility] [address] [id number] [address] [place] [address] Jan, [facility] [address] [id number] [address] [place] [address] Jan, Bipolar disorder F31.9 ; Mod erate intellectual disability F71 and Attention-deficit hyperactivity disorder, predominantly inattentive type F90.0 [facility] [address] [id number] [address] [place] [address] Dec, Bipolar disorder, currently in remission, most recent episode unspecified F31.70 [facility] [address] [id number] [address] [place] [address] Dec, Bipolar disorder, currently in remission, most recent episode unspecified F31.70 [facility] [address] [id number] [address] [place] [address] Dec, Bipolar disorder, currently in remission, most recent episode unspecified F31.70 [facility] [address] [id number] [address] [place] [address] Dec, [facility] [address] [id number] [address] [place] [address] Dec, Bipolar disorder, currently in remission, most recent episode unspecified F31.70 [facility] [address] [id number] [address] [place] [address] Nov, Bipolar disorder, currently in remission, most recent episode unspecified F31.70 [place] [address] [id number] [address] [place] [address] Nov, [facility] [address] [id number] [address] [place] [address] Nov, [facility] [address] [id number] [address] [place] [address] Nov, Bipolar disorder, currently in remission, most recent episode unspecified F31.70 [facility] [address] [id number] [address] [place] [address] Nov, Bipolar disorder, currently in remission, most recent episode unspecified F31.70 [facility] [address] [id number] [address] [place] [address] Oct, High risk medication use Z79 .899 ; Bipolar disorder F31.9 ; Moderate intellectual disability 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 and Attention-deficit hyperactivity disorder, predominantly inattentive type F90.0 [facility] [address] [id number] [address] [place] [address] Oct, [facility] [address] [facility] [id number] [address] [place] [address] Sep, Bipolar disorder, currently in remission, most recent episode unspecified F31.70 [facility] [address] [id number] [address] [place] [id number] Sep, 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 stat us requiring routine preventive dental care K08.9 and Arrested dental caries K02.3 [facility] [address] [id number] [address] [place] [address] Sep, Bipolar disorder, currently in remission, most recent episode unspecified F31.70 ; Moderate intellectual disability F71 and Attention-deficit hyperactivity disorder, predominantly inattentive type F90.0 [facility] [address] [id number] [address] [place] [address] Sep, Bipolar disorder, currently in remission, most recent episode unspecified F31.70 [facility] [address] [id number] [address] [place] [address] Aug, Bipolar disorder, currently in remission, most recent episode unspecified F31.70 [facility] [address] [id number] [address] [place] [address] Jul, Bipolar disorder, currently in remission, most recent episode unspecified F31.70 [facility] [address] [id number] [address] [place] [address] Jul, Bipolar disorder, currently in remission, most recent episode unspecified F31.70 [facility] [address] [id number] [address] [place] [address] Jun, [facility] [address] [id number] [address] [place] [address] Jun, Bipolar disorder, currently in remission, most recent episode unspecified F31.70 [facility] [address] [id number] [address] [place] [address] [id number] Jun, Dental examination Z01.20 an d Dental caries K02.9 [facility] [address] [id number] [address] [place] [address] May, Bipolar disorder, currently in remission, most recent episode unspecified F31.70 [facility] [address] [id number] [address] [place] [address] May, Bipolar disorder, currently in remission, most recent episode unspecified F31.70 [facility] [address] [id number] [address] [place] [address] May, Bipolar disorder, currently in remission, most recent episode unspecified F31.70 ; Moderate intellectual disability 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 and Attention-deficit hyperactivity disorder, predominantly inattentive type F90.0 [facility] [address] [id number] [address] [place] [address] Apr, Bipolar disorder, unspecifie d F31.9 [facility] [address] [id number] [address] [place] [address] Apr, [facility] [address] [id number] [address] [place] [address] Apr, [facility] [address] [id number] [address] [place] [address] Apr, [facility] [address] [id number] [address] [place] [address] March, [facility] [address] [id number] [address] [place] [address] March, Bipolar disorder, currently in remission, most recent episode unspecified F31.70 ; Moderate intellectual disability F71 and Attention-deficit hyperactivity disorder, predominantly inattentive type F90.0 [facility] [address] [id number] [address] [place] [address] Feb, [facility] [address] [id number] [address] [place] [id number] Feb, Dental examination Z01.20 [facility] [address] [id number] [address] [place] [address] Jan, [facility] [address] [id number] [address] [place] [address] Jan, [facility] [address] [id number] [address] [place] [address] Dec, [facility] [address] [id number] [address] [place] [address] Nov, [facility] [address] [id number] [address] [place] [id number] Nov, Encounter for dental exam an d cleaning w/o abnormal findings Z01.20 [facility] [address] [id number] [address] [place] [address] [id number] Nov, Dental examination Z01.20 [facility] [address] [id number] [address] [place] [address] Oct, [facility] [address] [id number] [address] [place] [address] Oct, Bipolar disorder, currently in remission, most recent episode unspecified F31.70 ; Moderate intellectual disability F71 and Attention-deficit hyperactivity disorder, predominantly inattentive type F90.0 [facility] [address] [id number] [address] [place] [address] Sep, [facility] [address] [id number] [address] [place] [address] Sep, [facility] [address] [id number] [address] [place] [address] Aug, [facility] [address] [id number] [address] [place] [address] Aug, Attention-deficit hyperactiv ity disorder, predominantly inattentive type F90.0 ; Moderate intellectual disability F71 and Bipolar disorder F31.9 [facility] [address] [id number] [address] [place] [id number] Jul, Dental examination Z01.20 an d Dental caries K02.9 [facility] [address] [id number] [address] [place] [address] Jul, [facility] [address] [id number] [address] [place] [address] Jun, Bipolar disorder F31.9 ; Att ention-deficit hyperactivity disorder, predominantly inattentive type F90.0 and Moderate intellectual disability F71 [facility] [address] [id number] [address] [place] [address] Jun, [facility] [address] [id number] [address] [place] [address] May, [facility] [address] [id number] [address] [place] [address] Apr, [facility] [address] [facility] [id number] [address] [place] [address] March, Intermittent explosive disor jocelyn F63.81 ; Attention deficit hyperactivity disorder F90.9 and Bipolar disorder F31.9 [facility] [address] [id number] [address] [place] [address] Feb, [facility] [address] [id number] [address] [place] [address] Jan, [facility] [address] [facility] [id number] [address] [place] [address] Dec, Encounter for immunization Z 23 [facility] [address] [id number] [address] [place] [address] Dec, Intermittent explosive disor jocelyn F63.81 ; Attention deficit hyperactivity disorder F90.9 and Bipolar disorder, currently in remission, most recent episode unspecified F31.70 [facility] [address] [id number] [address] [place] [address] Nov, [facility] [address] [id number] [address] [place] [address] Oct, [facility] [address] [facility] [id number] [address] [place] [address] Oct, [facility] [address] [id number] [address] [place] [id number] Oct, Dental examination Z01.20 [facility] [address] [id number] [address] [place] [address] Sep, [facility] [address] [id number] [address] [place] [address] Sep, [facility] [address] [facility] [id number] [address] [place] [address] Sep, Intermittent explosive disor jocelyn F63.81 ; Bipolar disorder F31.9 and Attention deficit hyperactivity disorder F90.9 [facility] [address] [id number] [address] [place] [address] Aug, [facility] [address] [id number] [address] [place] [address] Aug, [facility] [address] [facility] [id number] [address] [place] [address] Aug, [facility] [address] [id number] [address] [place] [address] Aug, Attention deficit hyperactiv ity disorder F90.9 [facility] [address] [id number] [address] [place] [id number] 16 Jul, 2016 [facility] [address] [id number] [address] [place] [address] Jun, [facility] [address] [id number] [address] [place] [address] May, [facility] [address] [id number] [address] [place] [address] Apr, [facility] [address] [facility] [id number] [address] [place] [address] Apr, Bipolar disorder F31.9 ; Att ention deficit hyperactivity disorder F90.9 and Intermittent explosive disorder F63.81 [facility] [address] [id number] [address] [place] [address] March, [facility] [address] [id number] [address] [place] [address] Feb, [facility] [address] [facility] [id number] [address] [place] [address] Feb, [facility] [address] [id number] [address] [place] [address] Jan, [facility] [address] [id number] [address] [place] [address] Jan, [facility] [address] [id number] [address] [place] [address] Dec, [facility] [address] [id number] [address] [place] [address] Nov, [facility] [address] [id number] [address] [place] [address] Nov, [facility] [address] [place] [id number] [address] [place] [address] Nov, Attention deficit hyperactiv ity disorder F90.9 ; Intermittent explosive disorder F63.81 and Bipolar disorder F31.9 [facility] [address] [place] [id number] [address] [place] [address] Oct, [facility] [address] [place] [id number] [address] [place] [address] Oct, [facility] [address] [place] [id number] [address] [place] [address] Sep, [facility] [address] [place] [id number] [address] [place] [address] Aug, [facility] [address] [place] [id number] [address] [place] [address] Jul, [facility] [address] [place] [id number] [address] [place] [address] Jul, [facility] [address] [place] [id number] [address] [place] [address] Jul, Anxiety, generalized 300.02 ; Bipolar disorder, unspecified 296.80 ; 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.00 ; 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 and Impulse control disorder, unspecified 312.30 [facility] [address] [place] [id number] [address] [place] [address] Jul, [facility] [address] [place] [id number] [address] [place] [address] Jun, [facility] [address] [place] [id number] [address] [place] [address] May, [facility] [address] [place] [id number] [address] [place] [address] Apr, [facility] [address] [facility] [id number] [address] [place] [address] Apr, Bipolar disorder, unspecifie d 296.80 ; Generalized anxiety disorder 300.02 and 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.00 [facility] [address] [id number] [address] [place] [address], [place] [address] Apr, [facility] [address] [id number] [address] [place] [address] March, [facility] [address] [id number] [address] [place] [address] March, [facility] [address] [id number] [address] [place] [address] March, [facility] [address] [id number] [address] [place] [address], [place] [address] March, [facility] [address] [id number] [address] [place] [address] Feb, [facility] [address] [id number] [address] [place] [address] Feb, [facility] [address] [id number] [address] [place] [address] Jan, [facility] [address] [id number] [address] [place] [address] Jan, [facility] [address] [id number] [address] [place] [address] Jan, [facility] [address] [id number] [address] [place] [address] Jan, [facility] [address] [id number] [address] [place] [address] Jan, [facility] [address] [id number] [address] [place] [address] Dec, [facility] [address] [id number] [address] [place] [address] Dec, [facility] [address] [id number] [address] [place] [address] Nov, [facility] [address] [id number] [address] [place] [address], [place] [address] Nov, [facility] [address] [id number] [address] [place] [address], [place] [address] Nov, [facility] [address] [id number] [address] [place] [address], [place] [address] Oct, [facility] [address] [id number] [address] [place] [address], [place] [address] Oct, [facility] [address] [id number] [address] [place] [address], [place] [address] Oct, [facility] [address] [id number] [address] [place] [address], [place] [address] Oct, [facility] [address] [id number] [address] [place] [address], [place] [address] Oct, [facility] [address] [id number] [address] [place] [address], [place] [address] Oct, [facility] [address] [id number] [address] [place] [address], [place] [address] Sep, [facility] [address] [id number] [address] [place] [address], [place] [address] Sep, [facility] [address] [id number] [address] [place] [address], [place] [address] Sep, [facility] [address] [id number] [address] [place] [address], [place] [address] Aug, [facility] [address] [id number] [address] [place] [address], [place] [address] Aug, [facility] [address] [id number] [address] [place] [address], [place] [address] Jul, [facility] [address] [id number] [address] [place] [address], [place] [address] Jul, [facility] [address] [id number] [address] [place] [address], [place] [address] Jun, [facility] [address] [id number] [address] [place] [address], [place] [address] Jun, [facility] [address] [id number] [address] [place] [address], [place] [address] Jun, [facility] [address] [id number] [address] [place] [address], [place] [address] Jun, [facility] [address] [id number] [address] [place] [address], [place] [address] May, [facility] [address] [id number] [address] [place] [address], [place] [address] May, [facility] [address] [id number] [address] [place] [address], [place] [address] May, [facility] [address] [id number] [address] [place] [address], [place] [address] Apr, [facility] [address] [id number] [address] [place] [address], [place] [address] Apr, [facility] [address] [id number] [address] [place] [address], [place] [address] Apr, [facility] [address] [id number] [address] [place] [address], [place] [address] Apr, [facility] [address] [id number] [address] [place] [address], [place] [address] March, [facility] [address] [id number] [address] [place] [address], [place] [address] March, [facility] [address] [id number] [address] [place] [address], [place] [address] March, [facility] [address] [id number] [address] [place] [address], [place] [address] March, [facility] [address] [id number] [address] [place] [address], [place] [address] Feb, [facility] [address] [id number] [address] [place] [address], [place] [address] Feb, [facility] [address] [id number] [address] [place] [address], [place] [address] Jan, [facility] [address] [address] [id number] [address] [place] [address], [place] [address] Jan, [facility] [address] [id number] [address] [place] [address], [place] [address] Jan, [facility] [address] [id number] [address] [place] [address], [place] [address] Jan, [facility] [address] [id number] [address] [place] [address], [place] [address] Jan, [facility] [address] [id number] [address] [place] [address], [place] [address] Jan, [facility] [address] [id number] [address] [place] [address], [place] [address] Jan, [facility] [address] [id number] [address] [place] [address], [place] [address] Jan, [facility] [address] [id number] [address] [place] [address], [place] [address] Dec, [facility] [address] [id number] [address] [place] [address], [place] [address] Dec, [facility] [address] [id number] [address] [place] [address], [place] [address] Dec, [facility] [address] [id number] [address] [place] [address], [place] [address] Dec, [facility] [address] [id number] [address] [place] [address], [place] [address] Nov, [facility] [address] [id number] [address] [place] [address], [place] [address] Nov, [facility] [address] [id number] [address] [place] [address], [place] [address] Oct, [facility] [address] [id number] [address] [place] [address], [place] [address] Oct, [facility] [address] [id number] [address] [place] [address], [place] [address] Oct, [facility] [address] [id number] [address] [place] [address], [place] [address] Oct, [facility] [address] [id number] [address] [place] [address], [place] [address] Sep, [facility] [address] [id number] [address] [place] [address], [place] [address] Sep, [facility] [address] [id number] [address] [place] [address], [place] [address] Sep, [facility] [address] [id number] [address] [place] [address], [place] [address] Sep, [facility] [address] [id number] [address] [place] [address], [place] [address] Aug, [facility] [address] [id number] [address] [place] [address], [place] [address] Aug, [facility] [address] [id number] [address] [place] [address], [place] [address] Aug, [facility] [address] [id number] [address] [place] [address], [place] [address] Jul, [facility] [address] [id number] [address] [place] [address], [place] [address] Jul, [facility] [address] [id number] [address] [place] [address], [place] [address] Jun, [facility] [address] [id number] [address] [place] [address], [place] [address] Jun, [facility] [address] [id number] [address] [place] [address], [place] [address] 16 May, 2013 [facility] [address] [id number] [address] [place] [address], [place] [address] May, [facility] [address] [id number] [address] [place] [address], [place] [address] Apr, [facility] [address] [id number] [address] [place] [address], [place] [address] March, [facility] [address] [id number] [address] [place] [address], [place] [address] March, [facility] [address] [id number] [address] [place] [address], [place] [address] Feb, [facility] [address] [id number] [address] [place] [address], [place] [address] Jan, [facility] [address] [id number] [address] [place] [address], [place] [address] Jan, [facility] [address] [id number] [address] [place] [address], [place] [address] Dec, [facility] [address] [id number] [address] [place] [address], [place] [address] Dec, [facility] [address] [id number] [address] [place] [address], [place] [address] Nov, [facility] [address] [id number] [address] [place] [address], [place] [address] Nov, [facility] [address] [id number] [address] [place] [address], [place] [address] Nov, [facility] [address] [id number] [address] [place] [address], [place] [address] Nov, [facility] [address] [id number] [address] [place] [address], [place] [address] Nov, [facility] [address] [id number] [address] [place] [address], [place] [address] Oct, [facility] [address] [id number] [address] [place] [address], [place] [address] Oct, [facility] [address] [id number] [address] [place] [address], [place] [address] Oct, [facility] [address] [id number] [address] [place] [address], [place] [address] Oct, [facility] [address] [id number] [address] [place] [address], [place] [address] Oct, [facility] [address] [id number] [address] [place] [address], [place] [address] Oct, [facility] [address] [id number] [address] [place] [address], [place] [address] 05 Oct, 2012 [facility] [address] [id number] [address] [place] [address], [place] [address] Oct, [facility] [address] [id number] [address] [place] [address], [place] [address] Sep, [facility] [address] [id number] [address] [place] [address], [place] [address] Sep, [facility] [address] [id number] [address] [place] [address], [place] [address] 06 Sep, 2012 [facility] [address] [id number] [address] [place] [address], [place] [address] 17 Aug, 2012 [facility] [address] [id number] [address] [place] [address], [place] [address] 17 Aug, 2012 [facility] [address] [id number] [address] [place] [address], [place] [address] 10 Aug, 2012 [facility] [address] [id number] [address] [place] [address], [place] [address] 09 Aug, 2012 [facility] [address] [id number] [address] [place] [address], [place] [address] 08 Aug, 2012 [facility] [address] [id number] [address] [place] [address], [place] [address] 19 Jul, 2012 [facility] [address] [id number] [address] [place] [address], [place] [address] Jul, [facility] [address] [id number] [address] [place] [address], [place] [address] Jun, [facility] [address] [id number] [address] [place] [address], [place] [address] May, [facility] [address] [id number] [address] [place] [address], [place] [address] May, [facility] [address] [id number] [address] [place] [address], [place] [address] Apr, [facility] [address] [id number] [address] [place] [address], [place] [address] March, [facility] [address] [id number] [address] [place] [address], [place] [address] March, [facility] [address] [id number] [address] [place] [address], [place] [address] March, [facility] [address] [id number] [address] [place] [address], [place] [address] March, [facility] [address] [id number] [address] [place] [address], [place] [address] Feb, [facility] [address] [id number] [address] [place] [address], [place] [address] Feb, [facility] [address] [id number] [address] [place] [address], [place] [address] Jan, [facility] [address] [id number] [address] [place] [address], [place] [address] Dec, [facility] [address] [id number] [address] [place] [address], [place] [address] Dec, [facility] [address] [id number] [address] [place] [address], [place] [address] Dec, [facility] [address] [id number] [address] [place] [address], [place] [address] Nov, [facility] [address] [id number] [address] [place] [address] Nov, [facility] [address] [id number] [address] [place] [address] Nov, [facility] [address] [id number] [address] [place] [address] Oct, [facility] [address] [id number] [address] [place] [address] Sep, [facility] [address] [id number] [address] [place] [address] Aug, [facility] [address] [id number] [address] [place] [address] Aug, [facility] [address] [id number] [address] [place] [address] May, [facility] [address] [id number] [address] [place] [address] Sep, [facility] [address] [id number] [address] [place] [address] Sep, IMMUNIZATIONS No Known Immunizations SOCIAL HISTORY [...] Medical History Intellectual disability Surgical History No know Surgical history
--- OUTSIDE RECORDS SUMMARY | 2020-03-18 15:27 | XMS REPORT ---
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 Name Role Phone BRENDA HAMMER Unavailable PROBLEMS Type Condition ICD9-CM Code [id number] Code Onset Dates Condition S tatus SNOMED Code Problem Bipolar disorder F31.9 Active 137 39125 Problem Intellectual disability F79 Active 36069303 Problem Attention-deficit hyperactiv ity disorder, predominantly inattentive type F90.0 Active 10107729 Problem Intermittent explosive disorder F63.81 Active 59600416 Problem Attention deficit hyperactivity disorder F90.9 Active 330280396 Problem Bipolar disorder, currently in remission, most recent episode unspecified F31.70 Active 25170875 Problem Moderate intellectual disability F71 Active [id number] ALLERGIES No Information ENCOUNTERS Encounter Location Date Diagnosis [facility] [address] [facility] [id number] [address] [place] [phone] May, [facility] [address] [facility] [id number] [address] [place] [phone] May, [facility] [address] [facility] [id number] [address] [place] [phone] May, [facility] [address] [id number] [address] [place] [phone] May, Bipolar disorder F31.9 [facility] [address] [facility] [id number] [address] [place] [phone] May, Bipolar disorder F31.9 ; Att ention-deficit hyperactivity disorder, predominantly inattentive type F90.0 and Moderate intellectual disability F71 [facility] [address] [id number] [address] [place] [phone] Apr, Bipolar disorder F31.9 [facility] [address] [id number] [address] [place] [id number] Apr, Bipolar disorder F31.9 and H igh risk medication use Z79.899 [facility] [address] [id number] [address] [place] [phone] March, Bipolar disorder F31.9 and H igh risk medication use Z79.899 [facility] [address] [id number] [address] [place] [phone] March, Bipolar disorder F31.9 [facility] [id number] [place] [phone] March, Caries K02.9 [facility] [address] [id number] [address] [place] [phone] March, Bipolar disorder F31.9 [facility] [address] [id number] [address] [place] [phone] March, Bipolar disorder F31.9 [facility] [address] [id number] [address] [place] [phone] Feb, Bipolar disorder F31.9 [facility] [address] [id number] [address] [place] [phone] Feb, Bipolar disorder F31.9 ; Att ention-deficit hyperactivity disorder, predominantly inattentive type F90.0 and Moderate intellectual disability 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 [facility] [address] [id number] [address] [place] [phone] Jan, Bipolar disorder F31.9 [facility] [address] [id number] [address] [place] [address] Jan, Bipolar disorder F31.9 [facility] [address] [id number] [address] [place] [address] Jan, Dental examination Z01.20 ; 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 status requiring routine preventive dental care K08.9 and Caries K02.9 [facility] [address] [id number] [address] [place] [phone] Jan, [place] [id number] [id number] [address] [place] [phone] Jan, Bipolar disorder F31.9 ; Mod erate intellectual disability F71 and Attention-deficit hyperactivity disorder, predominantly inattentive type F90.0 [facility] [address] [id number] [address] [place] [phone] Dec, Bipolar disorder, currently in remission, most recent episode unspecified F31.70 [facility] [address] [id number] [address] [place] [phone] Dec, Bipolar disorder, currently in remission, most recent episode unspecified F31.70 [facility] [address] [id number] [address] [place] [address] Dec, Bipolar disorder, currently in remission, most recent episode unspecified F31.70 [facility] [address] [id number] [address] [place] [id number] Dec, [facility] [address] [id number] [address] [place] [id number] Dec, Bipolar disorder, currently in remission, most recent episode unspecified F31.70 [facility] [address] [id number] [address] [place] [phone] Nov, Bipolar disorder, currently in remission, most recent episode unspecified F31.70 [facility] [address] [id number] [address] [place] [phone] Nov, [facility] [address] [id number] [address] [place] [phone] Nov, [facility] [address] [id number] [address] [place] [phone] Nov, Bipolar disorder, currently in remission, most recent episode unspecified F31.70 [facility] [address] [id number] [address] [place] [address] Nov, Bipolar disorder, currently in remission, most recent episode unspecified F31.70 [facility] [address] [id number] [address] [place] [phone] Oct, High risk medication use Z79 .899 ; Bipolar disorder F31.9 ; Moderate intellectual disability F71 and Attention-deficit hyperactivity disorder, predominantly inattentive type F90.0 [facility] [address] [id number] [address] [place] [phone] Oct, [facility] [address] [id number] [address] [place] [address] Sep, Bipolar disorder, currently in remission, most recent episode unspecified F31.70 [facility] [address] [id number] [address] [place] [phone] Sep, 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 stat us requiring routine preventive dental care K08.9 and Arrested dental caries K02.3 [facility] [address] [id number] [address] [place] [phone] Sep, Bipolar disorder, currently in remission, most recent episode unspecified F31.70 ; Moderate intellectual disability 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 and Attention-deficit hyperactivity disorder, predominantly inattentive type F90.0 [facility] [address] [id number] [address] [place] [phone] Sep, Bipolar disorder, currently in remission, most recent episode unspecified F31.70 [facility] [address] [id number] [address] [place] [phone] Aug, Bipolar disorder, currently in remission, most recent episode unspecified F31.70 [facility] [address] [id number] [address] [place] [id number] 13 Jul, 2018 Bipolar disorder, currently in remission, most recent episode unspecified F31.70 [facility] [address] [id number] [address] [place] [id number] Jul, Bipolar disorder, currently in remission, most recent episode unspecified F31.70 [facility] [address] [id number] [address] [place] [phone] Jun, [facility] [address] [id number] [address] [place] [phone] Jun, Bipolar disorder, currently in remission, most recent episode unspecified F31.70 [facility] [address] [id number] [address] [place] [phone] Jun, Dental examination Z01.20 an d Dental caries K02.9 [facility] [address] [id number] [address] [place] [phone] May, Bipolar disorder, currently in remission, most recent episode unspecified F31.70 [facility] [address] [id number] [address] [place] [address] May, Bipolar disorder, currently in remission, most recent episode unspecified F31.70 [facility] [address] [id number] [address] [place] [address] May, Bipolar disorder, currently in remission, most recent episode unspecified F31.70 ; Moderate intellectual disability F71 and Attention-deficit hyperactivity disorder, predominantly inattentive type F90.0 [facility] [address] [id number] [address] [place] [phone] Apr, Bipolar disorder, unspecifie d F31.9 [facility] [address] [id number] [address] [place] [id number] Apr, [facility] [address] [id number] [address] [place] [phone] Apr, [facility] [address] [id number] [address] [place] [phone] Apr, [facility] [address] [id number] [address] [place] [id number] March, [facility] [address] [id number] [address] [place] [phone] March, Bipolar disorder, currently in remission, most recent episode unspecified F31.70 ; Moderate intellectual disability F71 and Attention-deficit hyperactivity disorder, predominantly inattentive type F90.0 [facility] [address] [id number] [address] [place] [id number] Feb, [facility] [address] [id number] [address] [place] [id number] Feb, Dental examination Z01.20 [facility] [address] [id number] [address] [place] [phone] Jan, [facility] [address] [id number] [address] [place] [phone] Jan, [facility] [address] [id number] [address] [place] [phone] Dec, [facility] [address] [id number] [address] [place] [phone] Nov, [facility] [address] [id number] [address] [place] [phone] Nov, Encounter for dental exam an d cleaning w/o abnormal findings Z01.20 [facility] [address] [id number] [address] [place] [id number] Nov, Dental examination Z01.20 [facility] [address] [id number] [address] [place] [id number] Oct, [facility] [address] [id number] [address] [place] [id number] Oct, Bipolar disorder, currently in remission, most recent episode unspecified F31.70 ; Moderate intellectual disability 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 and Attention-deficit hyperactivity disorder, predominantly inattentive type F90.0 [facility] [address] [id number] [address] [place] [phone] Sep, [facility] [address] [id number] [address] [place] [phone] Sep, [facility] [address] [id number] [address] [place] [phone] Aug, [facility] [address] [id number] [address] [place] [phone] Aug, Attention-deficit hyperactiv ity disorder, predominantly inattentive type F90.0 ; Moderate intellectual disability F71 and Bipolar disorder F31.9 [facility] [address] [id number] [address] [place] [address] [id number] 11 Jul, 2017 Dental examination Z01.20 an d Dental caries K02.9 [facility] [address] [facility] [id number] [address] [place] [phone] 05 Jul, 2017 [facility] [address] [facility] [id number] [address] [place] [phone] Jun, Bipolar disorder F31.9 ; Att ention-deficit hyperactivity disorder, predominantly inattentive type F90.0 and Moderate intellectual disability F71 [facility] [address] [facility] [id number] [address] [place] [phone] Jun, [facility] [address] [facility] [id number] [address] [place] [phone] May, [facility] [address] [facility] [id number] [address] [place] [phone] Apr, [facility] [address] [facility] [id number] [address] [place] [phone] March, Intermittent explosive disor jocelyn F63.81 ; Attention deficit hyperactivity disorder F90.9 and Bipolar disorder F31.9 [facility] [address] [facility] [id number] [address] [place] [phone] Feb, [facility] [address] [facility] [id number] [address] [place] [phone] Jan, [facility] [address] [facility] [id number] [address] [place] [phone] 13 Dec, 2016 Intermittent explosive disor jocelyn F63.81 ; Attention deficit hyperactivity disorder F90.9 and Bipolar disorder, currently in remission, most recent episode unspecified F31.70 [facility] [address] [facility] [id number] [address] [place] [phone] 13 Dec, 2016 Encounter for immunization Z 23 [facility] [address] [id number] [address] [place] [phone] Nov, [facility] [address] [id number] [address] [place] [phone] Oct, [facility] [address] [id number] [address] [place] [phone] Oct, [facility] [address] [id number] [address] [place] [id number] Oct, Dental examination Z01.20 [facility] [address] [id number] [address] [place] [phone] Sep, [facility] [address] [id number] [address] [place] [phone] Sep, [facility] [address] [facility] [id number] [address] [place] [phone] Sep, Intermittent explosive disor jocelyn F63.81 ; Bipolar disorder F31.9 and Attention deficit hyperactivity disorder F90.9 [facility] [address] [id number] [address] [place] [phone] Aug, [facility] [address] [id number] [address] [place] [phone] Aug, [facility] [address] [id number] [address] [place] [phone] Aug, [facility] [address] [id number] [address] [place] [phone] Aug, Attention deficit hyperactiv ity disorder F90.9 [facility] [address] [id number] [address] [place] [phone] Jul, [facility] [address] [id number] [address] [place] [phone] Jun, [facility] [address] [id number] [address] [place] [address] May, [facility] [address] [id number] [address] [place] [phone] Apr, [facility] [address] [id number] [address] [place] [phone] Apr, Bipolar disorder F31.9 ; Att ention deficit hyperactivity disorder F90.9 and Intermittent explosive disorder F63.81 [facility] [address] [id number] [address] [place] [phone] March, [facility] [address] [id number] [address] [place] [phone] Feb, [facility] [address] [id number] [address] [place] [address] Feb, [facility] [address] [id number] [address] [place] [phone] Jan, [facility] [address] [id number] [address] [place] [phone] Jan, [facility] [address] [id number] [address] [place] [phone] Dec, [facility] [address] [id number] [address] [place] [phone] Nov, [facility] [address] [id number] [address] [place] [phone] Nov, [facility] [address] [id number] [address] [place] [phone] Nov, Attention deficit hyperactiv ity disorder F90.9 ; Intermittent explosive disorder F63.81 and Bipolar disorder F31.9 [facility] [address] [id number] [address] [place] [phone] Oct, [facility] [address] [id number] [address] [place] [phone] Oct, [facility] [address] [id number] [address] [place] [phone] Sep, [facility] [address] [id number] [address] [place] [phone] Aug, [facility] [address] [id number] [address] [place] [phone] Jul, [facility] [address] [id number] [address] [place] [id number] Jul, [facility] [address] [id number] [address] [place] [phone] Jul, Anxiety, generalized 300.02 ; Bipolar disorder, unspecified 296.80 ; 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.00 ; 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 and Impulse control disorder, unspecified 312.30 [facility] [address] [id number] [address] [place] [phone] Jul, [facility] [address] [id number] [address] [place] [phone] Jun, [facility] [address] [facility] [id number] [address] [place] [phone] May, [facility] [address] [id number] [address] [place] [phone] Apr, [facility] [address] [facility] [id number] [address] [place] [phone] Apr, Bipolar disorder, unspecifie d 296.80 ; Generalized anxiety disorder 300.02 and 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.00 [facility] [address] [id number] [address] [place] [phone] Apr, [facility] [address] [id number] [address] [place] [phone] March, [facility] [address] [id number] [address] [place] [phone] March, [facility] [address] [id number] [address] [place] [phone] March, [facility] [address] [id number] [address] [place] [phone] March, [facility] [address] [id number] [address] [place] [address], [place] [address] 14 Feb, 2015 [facility] [address] [id number] [address] [place] [address], [place] [address] Feb, [facility] [address] [id number] [address] [place] [address], [place] [address] Jan, [facility] [address] [id number] [address] [place] [address], [place] [address] Jan, [facility] [address] [id number] [address] [place] [address], [place] [address] Jan, [facility] [address] [id number] [address] [place] [address], [place] [address] Jan, [facility] [address] [id number] [address] [place] [address], [place] [address] Jan, [facility] [address] [id number] [address] [place] [address], [place] [address] Dec, [facility] [address] [id number] [address] [place] [address], [place] [address] Dec, [facility] [address] [id number] [address] [place] [address], [place] [address] Nov, [facility] [address] [id number] [address] [place] [address], [place] [address] Nov, [facility] [address] [id number] [address] [place] [address], [place] [address] Nov, [facility] [address] [id number] [address] [place] [address], [place] [address] Oct, [facility] [address] [id number] [address] [place] [address], [place] [address] Oct, [facility] [address] [id number] [address] [place] [address], [place] [address] Oct, [facility] [address] [id number] [address] [place] [address], [place] [address] Oct, [facility] [address] [id number] [address] [place] [address], [place] [address] Oct, [facility] [address] [id number] [address] [place] [address], [place] [address] Oct, [facility] [address] [id number] [address] [place] [address], [place] [address] Sep, [facility] [address] [id number] [address] [place] [address], [place] [address] Sep, [facility] [address] [id number] [address] [place] [address], [place] [address] Sep, [facility] [address] [id number] [address] [place] [address], [place] [address] Aug, [facility] [address] [id number] [address] [place] [address], [place] [address] Aug, [facility] [address] [id number] [address] [place] [address], [place] [address] Jul, [facility] [address] [id number] [address] [place] [address], [place] [address] Jul, [facility] [address] [id number] [address] [place] [address], [place] [address] Jun, [facility] [address] [id number] [address] [place] [address], [place] [address] Jun, [facility] [address] [id number] [address] [place] [address], [place] [address] Jun, [facility] [address] [id number] [address] [place] [address], [place] [address] Jun, [facility] [address] [id number] [address] [place] [address], [place] [address] May, [facility] [address] [id number] [address] [place] [address], [place] [address] May, [facility] [address] [id number] [address] [place] [address], [place] [address] May, [facility] [address] [id number] [address] [place] [address], [place] [address] Apr, [facility] [address] [id number] [address] [place] [address], [place] [address] Apr, [facility] [address] [id number] [address] [place] [address], [place] [address] Apr, [facility] [address] [id number] [address] [place] [address], [place] [address] Apr, [facility] [address] [id number] [address] [place] [address], [place] [address] March, [facility] [address] [id number] [address] [place] [address], [place] [address] March, [facility] [address] [id number] [address] [place] [address], [place] [address] March, [facility] [address] [id number] [address] [place] [address], [place] [address] March, [facility] [address] [id number] [address] [place] [address], [place] [address] Feb, [facility] [address] [id number] [address] [place] [address], [place] [address] Feb, [facility] [address] [id number] [address] [place] [address], [place] [address] Jan, [facility] [address] [id number] [address] [place] [address], [place] [address] Jan, [facility] [address] [id number] [address] [place] [address], [place] [address] Jan, [facility] [address] [id number] [address] [place] [address], [place] [address] Jan, [facility] [address] [id number] [address] [place] [address], [place] [address] Jan, [facility] [address] [id number] [address] [place] [address], [place] [address] Jan, [facility] [address] [id number] [address] [place] [address], [place] [address] Jan, [facility] [address] [id number] [address] [place] [address], [place] [address] Jan, [facility] [address] [id number] [address] [place] [address], [place] [address] Dec, [facility] [address] [id number] [address] [place] [address], [place] [address] Dec, [facility] [address] [id number] [address] [place] [address], [place] [address] Dec, [facility] [address] [id number] [address] [place] [address], [place] [address] Dec, [facility] [address] [id number] [address] [place] [address], [place] [address] Nov, [facility] [address] [id number] [address] [place] [address], [place] [address] Nov, [facility] [address] [id number] [address] [place] [address], [place] [address] Oct, [facility] [address] [id number] [address] [place] [address], [place] [address] Oct, [facility] [address] [id number] [address] [place] [address], [place] [address] Oct, [facility] [address] [id number] [address] [place] [address], [place] [address] Oct, [facility] [address] [id number] [address] [place] [address], [place] [address] Sep, [facility] [address] [id number] [address] [place] [address], [place] [address] Sep, [facility] [address] [id number] [address] [place] [address], [place] [address] Sep, [facility] [address] [id number] [address] [place] [address], [place] [address] Sep, [facility] [address] [id number] [address] [place] [address], [place] [address] Aug, [facility] [address] [id number] [address] [place] [address], [place] [address] Aug, [facility] [address] [id number] [address] [place] [address], [place] [address] Aug, [facility] [address] [id number] [address] [place] [address], [place] [address] Jul, [facility] [address] [id number] [address] [place] [address], [place] [address] Jul, [facility] [address] [id number] [address] [place] [address], [place] [address] Jun, [facility] [address] [id number] [address] [place] [address], [place] [address] Jun, [facility] [address] [id number] [address] [place] [address], [place] [address] May, [facility] [address] [id number] [address] [place] [address], [place] [address] May, [facility] [address] [id number] [address] [place] [address], [place] [address] Apr, [facility] [address] [id number] [address] [place] [address], [place] [address] March, [facility] [address] [id number] [address] [place] [address], [place] [address] March, [facility] [address] [id number] [address] [place] [address], [place] [address] Feb, [facility] [address] [id number] [address] [place] [address], [place] [address] Jan, [facility] [address] [id number] [address] [place] [address], [place] [address] Jan, [facility] [address] [id number] [address] [place] [address], [place] [address] Dec, [facility] [address] [id number] [address] [place] [address], [place] [address] Dec, [facility] [address] [id number] [address] [place] [address], [place] [address] Nov, [facility] [address] [id number] [address] [place] [address], [place] [address] Nov, [facility] [address] [id number] [address] [place] [address], [place] [address] Nov, [facility] [address] [id number] [address] [place] [address], [place] [address] Nov, [facility] [address] [id number] [address] [place] [address], [place] [address] Nov, [facility] [address] [id number] [address] [place] [address], [place] [address] Oct, [facility] [address] [id number] [address] [place] [address], [place] [address] Oct, [facility] [address] [id number] [address] [place] [address], [place] [address] Oct, [facility] [address] [id number] [address] [place] [address], [place] [address] Oct, [facility] [address] [id number] [address] [place] [address], [place] [address] Oct, [facility] [address] [id number] [address] [place] [address], [place] [address] Oct, [facility] [address] [id number] [address] [place] [address], [place] [address] Oct, [facility] [address] [id number] [address] [place] [address], [place] [address] Oct, [facility] [address] [id number] [address] [place] [address], [place] [address] Sep, [facility] [address] [id number] [address] [place] [address], [place] [address] Sep, [facility] [address] [id number] [address] [place] [address], [place] [address] Sep, [facility] [address] [id number] [address] [place] [address], [place] [address] Aug, [facility] [address] [id number] [address] [place] [address], [place] [address] Aug, [facility] [address] [id number] [address] [place] [address], [place] [address] Aug, [facility] [address] [id number] [address] [place] [address], [place] [address] Aug, [facility] [address] [id number] [address] [place] [address], [place] [address] Aug, [facility] [address] [id number] [address] [place] [address], [place] [address] Jul, [facility] [address] [id number] [address] [place] [address], [place] [address] Jul, [facility] [address] [id number] [address] [place] [address], [place] [address] Jun, [facility] [address] [id number] [address] [place] [address], [place] [address] May, [facility] [address] [id number] [address] [place] [address], [place] [address] May, [facility] [address] [id number] [address] [place] [address], [place] [address] Apr, [facility] [address] [id number] [address] [place] [address], [place] [address] March, [facility] [address] [id number] [address] [place] [address], [place] [address] March, [facility] [address] [id number] [address] [place] [address], [place] [address] March, [facility] [address] [id number] [address] [place] [address], [place] [address] March, [facility] [address] [id number] [address] [place] [address], [place] [address] Feb, [facility] [address] [id number] [address] [place] [address], [place] [address] Feb, [facility] [address] [id number] [address] [place] [address], [place] [address] Jan, [facility] [address] [id number] [address] [place] [address], [place] [address] Dec, [facility] [address] [id number] [address] [place] [address], [place] [address] Dec, [facility] [address] [id number] [address] [place] [address], [place] [address] Dec, [facility] [address] [id number] [address] [place] [address], [place] [address] Nov, [facility] [address] [id number] [address] [place] [address], [place] [address] Nov, [facility] [address] [id number] [address] [place] [address], [place] [address] Nov, [facility] [address] [id number] [address] [place] [address], [place] [address] Oct, [facility] [address] [id number] [address] [place] [address], [place] [address] Sep, [facility] [address] [id number] [address] [place] [address], [place] [address] Aug, [facility] [address] [id number] [address] [place] [address] Aug, [facility] [address] [facility] [id number] [address] [place] [address] May, [facility] [address] [facility] [id number] [address] [place] [address] Sep, [facility] [address] [facility] [id number] [address] [place] [address] Sep, IMMUNIZATIONS No Known Immunizations SOCIAL HISTORY Never Assessed REASON FOR VISIT PLAN OF CARE VITAL SIGNS MEDICATIONS Unknown Medications RESULTS No Results PROCEDURES No Known procedures INSTRUCTIONS MEDICATIONS ADMINISTERED No Known Medications MEDICAL (GENERAL) HISTORY Type Description Date Medical History bipolar Medical History adhd Medical History anxiety Surgical History No Surgical history information
--- OUTSIDE RECORDS SUMMARY | 2020-03-18 15:27 | XMS REPORT ---
Author Author Jose Cruz Bonilla Organization [facility] Address Unknown Care Team Providers Care Gps Field Data Collector Name Role Phone BRODIE Bonilla Unavailable PROBLEMS Type Condition ICD9-CM Code CHH12-TL Code Onset Dates Condition S tatus SNOMED Code Problem Bipolar disorder F31.9 Active 137 34199 Problem Intellectual disability F79 Active 32924190 Problem Attention-deficit hyperactiv ity disorder, predominantly inattentive type F90.0 Active 71056418 Problem Intermittent explosive disorder F63.81 Active 63175278 Problem Attention deficit hyperactivity disorder F90.9 Active 812080499 Problem Bipolar disorder, currently in remission, most recent episode unspecified F31.70 Active 64721817 Problem Moderate intellectual disability F71 Active 21436260 ALLERGIES No Information ENCOUNTERS Encounter Location Date Diagnosis [facility] [address] [facility] [id number] [address] [place] [address] May, [facility] [address] [id number] [address] [place] [phone] May, OUTREACH [facility] [address] [facility] [id number] [place] [phone] May, [facility] [address] [id number] [address] [place] [phone] May, Bipolar disorder F31.9 ; Att ention-deficit hyperactivity disorder, predominantly inattentive type F90.0 and Moderate intellectual disability F71 [facility] [address] [facility] [id number] [address] [place] [phone] Apr, Bipolar disorder F31.9 [facility] [address] [id number] [address] [place] [phone] Apr, Bipolar disorder F31.9 and H igh risk medication use Z79.899 [facility] [address] [id number] [address] [place] [address] March, Bipolar disorder F31.9 and H igh risk medication use Z79.899 [facility] [address] [id number] [address] [place] [phone] March, Bipolar disorder F31.9 [facility] [address] [id number] [address] March, Caries K02.9 [facility] [address] [id number] [address] [place] [phone] March, Bipolar disorder F31.9 [facility] [address] [id number] [address] [place] [address] March, Bipolar disorder F31.9 [facility] [address] [id number] [address] [place] [phone] Feb, Bipolar disorder F31.9 [facility] [address] [id number] [address] [place] [phone] Feb, Bipolar disorder F31.9 ; Att ention-deficit hyperactivity disorder, predominantly inattentive type F90.0 and Moderate intellectual disability 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 [facility] [address] [id number] [address] [place] [phone] Jan, Bipolar disorder F31.9 [facility] [address] [id number] [address] [place] [address] Jan, Bipolar disorder F31.9 [facility] [address] [id number] [address] [place] [phone] Jan, Dental examination Z01.20 ; 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 status requiring routine preventive dental care K08.9 and Caries K02.9 [facility] [address] [id number] [address] [place] [phone] Jan, [facility] [address] [facility] [id number] [address] [place] [phone] Jan, Bipolar disorder F31.9 ; Mod erate intellectual disability F71 and Attention-deficit hyperactivity disorder, predominantly inattentive type F90.0 [facility] [address] [id number] [address] [place] [phone] Dec, Bipolar disorder, currently in remission, most recent episode unspecified F31.70 [facility] [address] [id number] [address] [place] [address] Dec, Bipolar disorder, currently in remission, most recent episode unspecified F31.70 [facility] [address] [id number] [address] [place] [address] Dec, Bipolar disorder, currently in remission, most recent episode unspecified F31.70 [facility] [address] [id number] [address] [place] [address] Dec, [facility] [address] [id number] [address] [place] [address] Dec, Bipolar disorder, currently in remission, most recent episode unspecified F31.70 [facility] [address] [id number] [address] [place] [address] Nov, Bipolar disorder, currently in remission, most recent episode unspecified F31.70 [facility] [address] [id number] [address] [place] [address] Nov, [facility] [address] [id number] [address] [place] [phone] Nov, [facility] [address] [id number] [address] [place] [phone] Nov, Bipolar disorder, currently in remission, most recent episode unspecified F31.70 [facility] [address] [id number] [address] [place] [address] Nov, Bipolar disorder, currently in remission, most recent episode unspecified F31.70 [facility] [address] [id number] [address] [place] [phone] Oct, High risk medication use Z79 .899 ; Bipolar disorder F31.9 ; Moderate intellectual disability F71 and Attention-deficit hyperactivity disorder, predominantly inattentive type F90.0 [facility] [address] [id number] [address] [place] [phone] Oct, [facility] [address] [id number] [address] [place] [address] Sep, Bipolar disorder, currently in remission, most recent episode unspecified F31.70 [facility] [address] [id number] [address] [place] [id number] Sep, 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 stat us requiring routine preventive dental care K08.9 and Arrested dental caries K02.3 [facility] [address] [id number] [address] [place] [address] Sep, Bipolar disorder, currently in remission, most recent episode unspecified F31.70 ; Moderate intellectual disability F71 and Attention-deficit hyperactivity disorder, predominantly inattentive type F90.0 [facility] [address] [id number] [address] [place] [phone] Sep, Bipolar disorder, currently in remission, most recent episode unspecified F31.70 [facility] [address] [id number] [address] [place] [phone] 15 Aug, 2018 Bipolar disorder, currently in remission, most recent episode unspecified F31.70 [facility] [address] [id number] [address] [place] [phone] 13 Jul, 2018 Bipolar disorder, currently in remission, most recent episode unspecified F31.70 [facility] [address] [id number] [address] [place] [address] Jul, Bipolar disorder, currently in remission, most recent episode unspecified F31.70 [facility] [address] [id number] [address] [place] [phone] 14 Jun, 2018 [facility] [address] [id number] [address] [place] [phone] Jun, Bipolar disorder, currently in remission, most recent episode unspecified F31.70 [facility] [address] [id number] [address] [place] [id number] Jun, Dental examination Z01.20 an d Dental caries K02.9 [facility] [address] [id number] [address] [place] [phone] May, Bipolar disorder, currently in remission, most recent episode unspecified F31.70 [facility] [address] [id number] [address] [place] [address] May, Bipolar disorder, currently in remission, most recent episode unspecified F31.70 [facility] [address] [id number] [address] [place] [phone] May, Bipolar disorder, currently in remission, most recent episode unspecified F31.70 ; Moderate intellectual disability F71 and Attention-deficit hyperactivity disorder, predominantly inattentive type F90.0 [facility] [address] [id number] [address] [place] [phone] Apr, Bipolar disorder, unspecifie d F31.9 [facility] [address] [id number] [address] [place] [phone] Apr, [facility] [address] [id number] [address] [place] [phone] Apr, [facility] [address] [id number] [address] [place] [phone] Apr, [facility] [address] [id number] [address] [place] [phone] March, [facility] [address] [id number] [address] [place] [phone] March, Bipolar disorder, currently in remission, most recent episode unspecified F31.70 ; Moderate intellectual disability F71 and Attention-deficit hyperactivity disorder, predominantly inattentive type F90.0 [facility] [address] [id number] [address] [place] [phone] Feb, [facility] [address] [id number] [address] [place] [id number] Feb, Dental examination Z01.20 [facility] [address] [id number] [address] [place] [phone] Jan, [facility] [address] [id number] [address] [place] [phone] Jan, [facility] [address] [id number] [address] [place] [phone] Dec, [facility] [address] [id number] [address] [place] [phone] Nov, [facility] [address] [id number] [address] [place] [address] [id number] Nov, Encounter for dental exam an d cleaning w/o abnormal findings Z01.20 [facility] [address] [id number] [address] [place] [id number] Nov, Dental examination Z01.20 [facility] [address] [id number] [address] [place] [phone] Oct, [facility] [address] [id number] [address] [place] [phone] Oct, Bipolar disorder, currently in remission, most recent episode unspecified F31.70 ; Moderate intellectual disability 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 and Attention-deficit hyperactivity disorder, predominantly inattentive type F90.0 [facility] [address] [id number] [address] [place] [phone] Sep, [facility] [address] [id number] [address] [place] [phone] Sep, [facility] [address] [id number] [address] [place] [phone] Aug, [facility] [address] [id number] [address] [place] [phone] Aug, Attention-deficit hyperactiv ity disorder, predominantly inattentive type F90.0 ; Moderate intellectual disability F71 and Bipolar disorder F31.9 [facility] [address] [facility] [id number] [address] [place] [address] [id number] 11 Jul, 2017 Dental examination Z01.20 an d Dental caries K02.9 [facility] [address] [id number] [address] [place] [phone] 05 Jul, 2017 [facility] [address] [facility] [id number] [address] [place] [phone] Jun, Bipolar disorder F31.9 ; Att ention-deficit hyperactivity disorder, predominantly inattentive type F90.0 and Moderate intellectual disability F71 [facility] [address] [id number] [address] [place] [phone] Jun, [facility] [id number] [place] [id number] 17 May, 2017 [facility] [address] [id number] [address] [place] [phone] Apr, [facility] [address] [address] March, Intermittent explosive disor jocelyn F63.81 ; Attention deficit hyperactivity disorder F90.9 and Bipolar disorder F31.9 [facility] [address] [id number] [address] [place] [phone] Feb, [facility] [address] [id number] [address] [place] [phone] Jan, [facility] [address] [id number] [address] [place] [phone] 13 Dec, 2016 Encounter for immunization Z 23 [facility] [address] [id number] [address] [place] [phone] 13 Dec, 2016 Intermittent explosive disor jocelyn F63.81 ; Attention deficit hyperactivity disorder F90.9 and Bipolar disorder, currently in remission, most recent episode unspecified F31.70 [facility] [address] [id number] [address] [place] [phone] Nov, [facility] [address] [id number] [address] [place] [phone] Oct, [facility] [address] [id number] [address] [place] [phone] Oct, [facility] [address] [id number] [address] [place] [address] [id number] Oct, Dental examination Z01.20 [facility] [address] [id number] [address] [place] [phone] Sep, [facility] [address] [id number] [address] [place] [phone] Sep, [facility] [address] [facility] [id number] [address] [place] [phone] Sep, Intermittent explosive disor jocelyn F63.81 ; Bipolar disorder F31.9 and Attention deficit hyperactivity disorder F90.9 [facility] [address] [id number] [address] [place] [phone] Aug, [facility] [address] [id number] [address] [place] [phone] Aug, [facility] [address] [facility] [id number] [address] [place] [phone] Aug, [facility] [address] [facility] [id number] [address] [place] [phone] Aug, Attention deficit hyperactiv ity disorder F90.9 [facility] [address] [facility] [id number] [address] [place] [phone] Jul, [facility] [address] [id number] [address] [place] [phone] Jun, [facility] [address] [facility] [id number] [address] [place] [phone] May, [facility] [address] [facility] [id number] [address] [place] [phone] Apr, [facility] [address] [facility] [id number] [address] [place] [phone] Apr, Bipolar disorder F31.9 ; Att ention deficit hyperactivity disorder F90.9 and Intermittent explosive disorder F63.81 [facility] [address] [id number] [address] [place] [phone] March, [facility] [address] [id number] [address] [place] [phone] Feb, [facility] [address] [id number] [address] [place] [phone] Feb, [facility] [address] [id number] [address] [place] [phone] Jan, [facility] [address] [id number] [address] [place] [address] Jan, [facility] [address] [id number] [address] [place] [phone] Dec, [facility] [address] [id number] [address] [place] [phone] Nov, [facility] [address] [id number] [address] [place] [phone] Nov, [facility] [address] [facility] [id number] [address] [place] [id number] Nov, Attention deficit hyperactiv ity disorder F90.9 ; Intermittent explosive disorder F63.81 and Bipolar disorder F31.9 [facility] [address] [id number] [address] [place] [phone] Oct, [facility] [address] [id number] [address] [place] [phone] Oct, [facility] [address] [id number] [address] [place] [phone] Sep, [facility] [address] [id number] [address] [place] [phone] Aug, [facility] [address] [id number] [address] [place] [phone] Jul, [facility] [address] [id number] [address] [place] [phone] Jul, [facility] [address] [facility] [id number] [address] [place] [phone] Jul, Anxiety, generalized 300.02 ; Bipolar disorder, unspecified 296.80 ; 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.00 ; 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 and Impulse control disorder, unspecified 312.30 [facility] [address] [id number] [address] [place] [phone] Jul, [facility] [address] [id number] [address] [place] [phone] Jun, [facility] [address] [facility] [id number] [address] [place] [phone] May, [facility] [address] [facility] [id number] [address] [place] [phone] Apr, [facility] [address] [facility] [id number] [address] [place] [address] Apr, Bipolar disorder, unspecifie d 296.80 ; Generalized anxiety disorder 300.02 and 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.00 [facility] [address] [facility] [id number] [address] [place] [phone] Apr, [facility] [address] [facility] [id number] [address] [place] [phone] March, [facility] [address] [id number] [address] [place] [phone] March, [facility] [address] [facility] [id number] [address] [place] [phone] March, [facility] [address] [facility] [id number] [address] [place] [phone] March, [facility] [address] [facility] [id number] [address] [place] [phone] Feb, [facility] [address] [id number] [address] [place] [address], [place] [address] Feb, [facility] [address] [id number] [address] [place] [address], [place] [address] Jan, [facility] [address] [id number] [address] [place] [address], [place] [address] Jan, [facility] [address] [id number] [address] [place] [address], [place] [address] Jan, [facility] [address] [id number] [address] [place] [address], [place] [address] Jan, [facility] [address] [id number] [address] [place] [address], [place] [address] Jan, [facility] [address] [id number] [address] [place] [address], [place] [address] Dec, [facility] [address] [id number] [address] [place] [address], [place] [address] Dec, [facility] [address] [id number] [address] [place] [address], [place] [address] Nov, [facility] [address] [id number] [address] [place] [address], [place] [address] Nov, [facility] [address] [id number] [address] [place] [address], [place] [address] Nov, [facility] [address] [id number] [address] [place] [address], [place] [address] Oct, [facility] [address] [id number] [address] [place] [address], [place] [address] Oct, [facility] [address] [id number] [address] [place] [address], [place] [address] Oct, [facility] [address] [id number] [address] [place] [address], [place] [address] Oct, [facility] [address] [id number] [address] [place] [address], [place] [address] Oct, [facility] [address] [id number] [address] [place] [address], [place] [address] Oct, [facility] [address] [id number] [address] [place] [address], [place] [address] Sep, [facility] [address] [id number] [address] [place] [address], [place] [address] Sep, [facility] [address] [id number] [address] [place] [address], [place] [address] Sep, [facility] [address] [id number] [address] [place] [address], [place] [address] Aug, [facility] [address] [id number] [address] [place] [address], [place] [address] Aug, [facility] [address] [id number] [address] [place] [address], [place] [address] Jul, [facility] [address] [id number] [address] [place] [address], [place] [address] Jul, [facility] [address] [id number] [address] [place] [address], [place] [address] Jun, [facility] [address] [id number] [address] [place] [address], [place] [address] Jun, [facility] [address] [id number] [address] [place] [address], [place] [address] Jun, [facility] [address] [id number] [address] [place] [address], [place] [address] Jun, [facility] [address] [id number] [address] [place] [address], [place] [address] May, [facility] [address] [id number] [address] [place] [address], [place] [address] May, [facility] [address] [id number] [address] [place] [address], [place] [address] May, [facility] [address] [id number] [facility] [place] [address] 17 Apr, 2014 [facility] [address] [id number] [facility] [place] [address] Apr, [facility] [address] [id number] [facility] [place] [address] Apr, [facility] [address] [id number] [address] [place] [address], [place] [address] Apr, [facility] [facility] [address] [id number] [facility] [address] March, [facility] [address] [id number] [address] [place] [address], [place] [address] March, [facility] [address] [id number] [address] [place] [address], [place] [address] March, [facility] [address] [id number] [address] [place] [address], [place] [address] March, [facility] [address] [id number] [address] [place] [address], [place] [address] Feb, [facility] [address] [id number] [address] [place] [address], [place] [address] Feb, [facility] [address] [id number] [address] [place] [address], [place] [address] Jan, [facility] [address] [id number] [address] [place] [address], [place] [address] Jan, [facility] [address] [id number] [address] [place] [address], [place] [address] Jan, [facility] [address] [id number] [address] [place] [address], [place] [address] Jan, [facility] [address] [id number] [address] [place] [address], [place] [address] Jan, [facility] [address] [id number] [address] [place] [address], [place] [address] Jan, [facility] [address] [id number] [facility] [address] Jan, [facility] [address] [id number] [address] [place] [address], [place] [address] Jan, [facility] [address] [id number] [address] [place] [address], [place] [address] Dec, [facility] [address] [id number] [address] [place] [address], [place] [address] Dec, [facility] [address] [id number] [address] [place] [address], [place] [address] Dec, [facility] [address] [id number] [address] [place] [address], [place] [address] Dec, [facility] [address] [id number] [address] [place] [address], [place] [address] Nov, [facility] [address] [id number] [address] [place] [address], [place] [address] Nov, [facility] [address] [id number] [address] [place] [address], [place] [address] Oct, [facility] [address] [id number] [address] [place] [address], [place] [address] Oct, [facility] [address] [id number] [address] [place] [address], [place] [address] Oct, [facility] [address] [id number] [address] [place] [address], [place] [address] Oct, [facility] [address] [id number] [address] [place] [address], [place] [address] Sep, [facility] [address] [id number] [address] [place] [address], [place] [address] Sep, [facility] [address] [id number] [address] [place] [address], [place] [address] Sep, [facility] [address] [id number] [address] [place] [address], [place] [address] 07 Sep, 2013 [facility] [address] [id number] [address] [place] [address], [place] [address] 10 Aug, 2013 [facility] [address] [id number] [address] [place] [address], [place] [address] 10 Aug, 2013 [facility] [address] [id number] [address] [place] [address], [place] [address] 07 Aug, 2013 [facility] [address] [id number] [address] [place] [address], [place] [address] Jul, [facility] [address] [id number] [address] [place] [address], [place] [address] Jul, [facility] [address] [id number] [address] [place] [address], [place] [address] Jun, [facility] [address] [id number] [address] [place] [address], [place] [address] Jun, [facility] [address] [id number] [address] [place] [address], [place] [address] 16 May, 2013 [facility] [address] [id number] [address] [place] [address], [place] [address] May, [facility] [address] [id number] [address] [place] [address], [place] [address] Apr, [facility] [address] [id number] [address] [place] [address], [place] [address] March, [facility] [address] [id number] [address] [place] [address], [place] [address] March, [facility] [address] [id number] [address] [place] [address], [place] [address] Feb, [facility] [address] [id number] [address] [place] [address], [place] [address] Jan, [facility] [address] [id number] [address] [place] [address], [place] [address] Jan, [facility] [address] [id number] [address] [place] [address], [place] [address] Dec, [facility] [address] [id number] [address] [place] [address], [place] [address] Dec, [facility] [address] [id number] [address] [place] [address], [place] [address] Nov, [facility] [address] [id number] [address] [place] [address], [place] [address] Nov, [facility] [address] [id number] [address] [place] [address], [place] [address] Nov, [facility] [address] [id number] [address] [place] [address], [place] [address] Nov, [facility] [address] [id number] [address] [place] [address], [place] [address] Nov, [facility] [address] [id number] [address] [place] [address], [place] [address] Oct, [facility] [address] [id number] [address] [place] [address], [place] [address] Oct, [facility] [address] [id number] [address] [place] [address], [place] [address] Oct, [facility] [address] [id number] [address] [place] [address], [place] [address] Oct, [facility] [address] [id number] [address] [place] [address], [place] [address] Oct, [facility] [address] [id number] [address] [place] [address], [place] [address] Oct, [facility] [address] [id number] [address] [place] [address], [place] [address] Oct, [facility] [address] [id number] [address] [place] [address], [place] [address] Oct, [facility] [address] [id number] [address] [place] [address], [place] [address] 07 Sep, 2012 [facility] [address] [id number] [address] [place] [address], [place] [address] Sep, [facility] [address] [id number] [address] [place] [address], [place] [address] Sep, [facility] [address] [id number] [address] [place] [address], [place] [address] Aug, [facility] [address] [id number] [address] [place] [address], [place] [address] 17 Aug, 2012 [facility] [address] [id number] [address] [place] [address], [place] [address] Aug, [facility] [address] [id number] [address] [place] [address], [place] [address] Aug, [facility] [address] [id number] [address] [place] [address], [place] [address] Aug, [facility] [address] [id number] [address] [place] [address], [place] [address] Jul, [facility] [address] [id number] [address] [place] [address], [place] [address] Jul, [facility] [address] [id number] [address] [place] [address], [place] [address] Jun, [facility] [address] [id number] [address] [place] [address], [place] [address] May, [facility] [address] [id number] [address] [place] [address], [place] [address] May, [facility] [address] [id number] [address] [place] [address], [place] [address] Apr, [facility] [address] [id number] [address] [place] [address], [place] [address] March, [facility] [address] [id number] [address] [place] [address], [place] [address] March, [facility] [address] [id number] [address] [place] [address], [place] [address] March, [facility] [address] [id number] [address] [place] [address], [place] [address] March, [facility] [address] [id number] [address] [place] [address], [place] [address] Feb, [facility] [address] [id number] [address] [place] [address], [place] [address] Feb, [facility] [address] [id number] [address] [place] [address], [place] [address] Jan, [facility] [address] [id number] [address] [place] [address], [place] [address] Dec, [facility] [address] [id number] [address] [place] [address], [place] [address] Dec, [facility] [address] [id number] [address] [place] [address], [place] [address] Dec, [facility] [address] [id number] [address] [place] [address], [place] [address] Nov, [facility] [address] [id number] [address] [place] [address], [place] [address] Nov, [facility] [address] [id number] [address] [place] [address], [place] [address] Nov, [facility] [address] [id number] [address] [place] [address], [place] [address] Oct, [facility] [address] [id number] [address] [place] [address], [place] [address] Sep, [facility] [address] [id number] [address] [place] [address], [place] [address] Aug, [facility] [address] [id number] [address] [place] [address], [place] [address] Aug, [facility] [address] [id number] [address] [place] [address], [place] [address] May, [facility] [address] [facility] [id number] [address] [address] Sep, [facility] [address] [facility] [id number] [address] [address] Sep, IMMUNIZATIONS No Known Immunizations SOCIAL HISTORY Never Assessed REASON FOR VISIT PLAN OF CARE VITAL SIGNS MEDICATIONS Unknown Medications RESULTS No Results PROCEDURES No Known procedures INSTRUCTIONS MEDICATIONS ADMINISTERED No Known Medications MEDICAL (GENERAL) HISTORY Type Description Date Medical History bipolar Medical History adhd Medical History anxiety Surgical History No Surgical history information
--- OUTSIDE RECORDS SUMMARY | 2020-03-18 15:27 | XMS REPORT ---
Author Author Jose Cruz GUTIERRES Organization [facility] Address [address] [place] [address] Care Team Providers Care Insurance Analyst Name Role Phone CARLOS GUTIERRES Unavailable PROBLEMS Type Condition ICD9-CM Code ZAY84-SP Code Onset Dates Condition S tatus SNOMED Code Problem Bipolar disorder F31.9 Active 137 03969 Problem Intellectual disability F79 Active [id number] Problem Attention-deficit hyperactiv ity disorder, predominantly inattentive type F90.0 Active 55055826 Problem Intermittent explosive disorder F63.81 Active 90806682 Problem Attention deficit hyperactivity disorder F90.9 Active [id number] Problem Bipolar disorder, currently in remission, most recent episode unspecified F31.70 Active 68841767 Problem Moderate intellectual disability F71 Active [id number] ALLERGIES No Known Allergies ENCOUNTERS Encounter Location Date Diagnosis [facility] [address] [facility] [id number] [address] [place] [address] Jun, [facility] [address] [facility] [id number] [address] [place] [address] May, Bipolar disorder F31.9 ; Int ellectual disability F79 and Attention- deficit hyperactivity disorder, predominantly inattentive type F90.0 [facility] [address] [facility] [id number] [address] [place] [address] May, [facility] [address] [facility] [id number] [address] [place] [address] May, Bipolar disorder F31.9 [facility] [address] [facility] [id number] [address] [place] [address] May, Bipolar disorder F31.9 ; Att ention-deficit hyperactivity disorder, predominantly inattentive type F90.0 and Moderate intellectual disability F71 [facility] [address] [facility] [id number] [address] [place] [address] Apr, Bipolar disorder F31.9 [facility] [address] [id number] [address] [place] [address] Apr, Bipolar disorder F31.9 and H igh risk medication use Z79.899 [facility] [address] [id number] [address] [place] [address] March, Bipolar disorder F31.9 and H igh risk medication use Z79.899 [facility] [address] [id number] [address] [place] [address] March, Bipolar disorder F31.[address] [id number] [place] [address] March, Caries K02.9 [facility] [address] [id number] [address] [place] [address] March, Bipolar disorder F31.9 [facility] [address] [id number] [address] [place] [address] March, Bipolar disorder F31.9 [facility] [address] [id number] [address] [place] [address] Feb, Bipolar disorder F31.9 [facility] [address] [id number] [address] [place] [address] Feb, Bipolar disorder F31.9 ; Att ention-deficit hyperactivity disorder, predominantly inattentive type F90.0 and Moderate intellectual disability F71 [facility] [address] [id number] [address] [place] [address] Jan, Bipolar disorder F31.9 [facility] [address] [id number] [address] [place] [address] Jan, Bipolar disorder F31.9 [facility] [address] [id number] [address] [place] [address] Jan, Dental examination Z01.20 ; 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 status requiring routine preventive dental care K08.9 and Caries K02.9 [facility] [address] [id number] [address] [place] [address] Jan, [facility] [address] [id number] [address] [place] [address] Jan, Bipolar disorder F31.9 ; Mod erate intellectual disability F71 and Attention-deficit hyperactivity disorder, predominantly inattentive type F90.0 [facility] [address] [id number] [address] [place] [address] Dec, Bipolar disorder, currently in remission, most recent episode unspecified F31.70 [facility] [address] [id number] [address] [place] [address] Dec, Bipolar disorder, currently in remission, most recent episode unspecified F31.70 [facility] [address] [id number] [address] [place] [address] Dec, Bipolar disorder, currently in remission, most recent episode unspecified F31.70 [facility] [address] [id number] [address] [place] [address] Dec, [facility] [address] [id number] [address] [place] [address] Dec, Bipolar disorder, currently in remission, most recent episode unspecified F31.70 [facility] [address] [id number] [address] [place] [address] Nov, Bipolar disorder, currently in remission, most recent episode unspecified F31.70 [facility] [address] [id number] [address] [place] [address] Nov, [facility] [address] [id number] [address] [place] [address] Nov, [facility] [address] [id number] [address] [place] [address] Nov, Bipolar disorder, currently in remission, most recent episode unspecified F31.70 [facility] [address] [id number] [address] [place] [address] Nov, Bipolar disorder, currently in remission, most recent episode unspecified F31.70 [facility] [address] [facility] [id number] [address] [place] [address] Oct, High risk medication use Z79 .899 ; Bipolar disorder F31.9 ; Moderate intellectual disability F71 and Attention-deficit hyperactivity disorder, predominantly inattentive type F90.0 [facility] [address] [facility] [id number] [address] [place] [address] Oct, [facility] [address] [facility] [id number] [address] [place] [address] Sep, Bipolar disorder, currently in remission, most recent episode unspecified F31.70 [facility] [address] [id number] [address] [place] [id number] Sep, 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 stat us requiring routine preventive dental care K08.9 and Arrested dental caries K02.3 [facility] [address] [facility] [id number] [address] [place] [address] Sep, Bipolar disorder, currently in remission, most recent episode unspecified F31.70 ; Moderate intellectual disability 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 and Attention-deficit hyperactivity disorder, predominantly inattentive type F90.0 [facility] [address] [facility] [id number] [address] [place] [address] Sep, Bipolar disorder, currently in remission, most recent episode unspecified F31.70 [facility] [address] [id number] [address] [place] [address] Aug, Bipolar disorder, currently in remission, most recent episode unspecified F31.70 [facility] [address] [facility] [id number] [address] [place] [phone] 13 Jul, 2018 Bipolar disorder, currently in remission, most recent episode unspecified F31.70 [facility] [address] [id number] [address] [place] [address] Jul, Bipolar disorder, currently in remission, most recent episode unspecified F31.70 [facility] [address] [id number] [address] [place] [address] Jun, [facility] [address] [id number] [address] [place] [address] Jun, Bipolar disorder, currently in remission, most recent episode unspecified F31.70 [facility] [address] [id number] [address] [place] [address] [id number] Jun, Dental examination Z01.20 an d Dental caries K02.9 [facility] [address] [id number] [address] [place] [address] May, Bipolar disorder, currently in remission, most recent episode unspecified F31.70 [facility] [address] [id number] [address] [place] [address] May, Bipolar disorder, currently in remission, most recent episode unspecified F31.70 [facility] [address] [id number] [address] [place] [address] May, Bipolar disorder, currently in remission, most recent episode unspecified F31.70 ; Moderate intellectual disability F71 and Attention-deficit hyperactivity disorder, predominantly inattentive type F90.0 [facility] [address] [id number] [address] [place] [address] Apr, Bipolar disorder, unspecifie d F31.9 [facility] [address] [id number] [address] [place] [phone] Apr, [facility] [address] [id number] [address] [place] [address] Apr, [facility] [address] [id number] [address] [place] [address] Apr, [facility] [address] [id number] [address] [place] [address] March, [facility] [address] [id number] [address] [place] [phone] March, Bipolar disorder, currently in remission, most recent episode unspecified F31.70 ; Moderate intellectual disability 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 and Attention-deficit hyperactivity disorder, predominantly inattentive type F90.0 [facility] [address] [id number] [address] [place] [address] Feb, [facility] [address] [id number] [address] [place] [address] [id number] Feb, Dental examination Z01.20 [facility] [address] [id number] [address] [place] [address] Jan, [facility] [address] [id number] [address] [place] [address] Jan, [facility] [address] [id number] [address] [place] [address] Dec, [facility] [address] [id number] [address] [place] [address] Nov, [facility] [id number] [place] [address] [id number] Nov, Dental examination Z01.20 [facility] [address] [id number] [place] [address] [id number] Nov, Encounter for dental exam an d cleaning w/o abnormal findings Z01.20 [facility] [address] [id number] [address] [place] [address] Oct, [facility] [address] [id number] [address] [place] [address] Oct, Bipolar disorder, currently in remission, most recent episode unspecified F31.70 ; Moderate intellectual disability 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 and Attention-deficit hyperactivity disorder, predominantly inattentive type F90.0 [facility] [address] [id number] [address] [place] [phone] Sep, [facility] [address] [id number] [address] [place] [phone] Sep, [facility] [address] [id number] [address] [place] [phone] Aug, [facility] [address] [id number] [address] [place] [address] Aug, Attention-deficit hyperactiv ity disorder, predominantly inattentive type F90.0 ; Moderate intellectual disability F71 and Bipolar disorder F31.9 [facility] [address] [id number] [address] [place] [address] [id number] Jul, 2017 Dental examination Z01.20 an d Dental caries K02.9 [facility] [address] [id number] [address] [place] [phone] 05 Jul, 2017 [facility] [address] [id number] [address] [place] [phone] Jun, Bipolar disorder F31.9 ; Att ention-deficit hyperactivity disorder, predominantly inattentive type F90.0 and Moderate intellectual disability F71 [facility] [address] [id number] [address] [place] [phone] Jun, [facility] [address] [id number] [address] [place] [address] May, [facility] [address] [id number] [address] [place] [address] Apr, [facility] [address] [facility] [id number] [address] [place] [phone] March, Intermittent explosive disor jocelyn F63.81 ; Attention deficit hyperactivity disorder F90.9 and Bipolar disorder F31.9 [facility] [address] [id number] [address] [place] [address] Feb, [facility] [address] [facility] [id number] [address] [place] [address] Jan, [facility] [address] [facility] [id number] [address] [place] [id number] 13 Dec, 2016 Encounter for immunization Z 23 [facility] [address] [facility] [id number] [address] [place] [phone] 13 Dec, 2016 Intermittent explosive disor jocelyn F63.81 ; Attention deficit hyperactivity disorder F90.9 and Bipolar disorder, currently in remission, most recent episode unspecified F31.70 [facility] [address] [id number] [address] [place] [phone] Nov, [facility] [address] [id number] [address] [place] [phone] Oct, [facility] [address] [id number] [address] [place] [phone] Oct, [facility] [address] [id number] [address] [place] [address] [id number] Oct, Dental examination Z01.20 [facility] [address] [id number] [address] [place] [address] Sep, [facility] [address] [facility] [id number] [address] [place] [address] Sep, [facility] [address] [facility] [id number] [address] [place] [address] Sep, Intermittent explosive disor jocelyn F63.81 ; Bipolar disorder F31.9 and Attention deficit hyperactivity disorder F90.9 [facility] [address] [id number] [address] [place] [address] Aug, [facility] [address] [id number] [address] [place] [address] Aug, [facility] [address] [id number] [address] [place] [address] Aug, [facility] [address] [id number] [address] [place] [address] Aug, Attention deficit hyperactiv ity disorder F90.9 [facility] [address] [id number] [address] [place] [phone] Jul, [facility] [address] [id number] [address] [place] [address] Jun, [facility] [address] [id number] [address] [place] [address] May, [facility] [address] [id number] [address] [place] [phone] Apr, [facility] [address] [facility] [id number] [address] [place] [address] Apr, Bipolar disorder F31.9 ; Att ention deficit hyperactivity disorder F90.9 and Intermittent explosive disorder F63.81 [facility] [address] [id number] [address] [place] [address] March, [facility] [address] [id number] [address] [place] [address] Feb, [facility] [address] [id number] [address] [place] [phone] Feb, [facility] [address] [id number] [address] [place] [phone] Jan, [facility] [address] [id number] [address] [place] [phone] Jan, [facility] [address] [id number] [address] [place] [address] Dec, [facility] [address] [id number] [address] [place] [address] Nov, [facility] [address] [id number] [address] [place] [address] Nov, [facility] [address] [id number] [address] [place] [address] Nov, Attention deficit hyperactiv ity disorder F90.9 ; Intermittent explosive disorder F63.81 and Bipolar disorder F31.9 [facility] [address] [id number] [address] [place] [address] Oct, [facility] [address] [id number] [address] [place] [address] Oct, [facility] [address] [id number] [address] [place] [phone] Sep, [facility] [address] [id number] [address] [place] [id number] Aug, [facility] [address] [facility] [id number] [address] [place] [address] Jul, [facility] [address] [id number] [address] [place] [phone] Jul, [facility] [address] [id number] [address] [place] [address] Jul, Anxiety, generalized 300.02 ; Bipolar disorder, unspecified 296.80 ; 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.00 ; 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 and Impulse control disorder, unspecified 312.30 [facility] [address] [facility] [id number] [address] [place] [address] Jul, [facility] [address] [facility] [id number] [address] [place] [address] Jun, [facility] [address] [facility] [id number] [address] [place] [address] May, [facility] [address] [facility] [id number] [address] [place] [address] Apr, [facility] [address] [facility] [id number] [address] [place] [address] Apr, Bipolar disorder, unspecifie d 296.80 ; Generalized anxiety disorder 300.02 and 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.00 [facility] [address] [facility] [id number] [address] [place] [address] Apr, [facility] [address] [facility] [id number] [address] [place] [address] March, [facility] [address] [id number] [address] [place] [phone] March, [facility] [address] [facility] [id number] [address] [place] [address] March, [facility] [address] [id number] [address] [place] [address], [place] [address] March, [facility] [address] [id number] [address] [place] [address], [place] [address] Feb, [facility] [address] [id number] [address] [place] [address], [place] [address] Feb, [facility] [address] [id number] [address] [place] [address], [place] [address] Jan, [facility] [address] [id number] [address] [place] [address], [place] [address] Jan, [facility] [address] [id number] [address] [place] [address], [place] [address] Jan, [facility] [address] [id number] [address] [place] [address], [place] [address] Jan, [facility] [address] [id number] [address] [place] [address], [place] [address] Jan, [facility] [address] [id number] [address] [place] [address], [place] [address] Dec, [facility] [address] [id number] [address] [place] [address], [place] [address] Dec, [facility] [address] [id number] [address] [place] [address], [place] [address] Nov, [facility] [address] [id number] [address] [place] [address], [place] [address] Nov, [facility] [address] [id number] [address] [place] [address], [place] [address] Nov, [facility] [address] [id number] [address] [place] [address], [place] [address] Oct, [facility] [address] [id number] [address] [place] [address], [place] [address] Oct, [facility] [address] [id number] [address] [place] [address], [place] [address] Oct, [facility] [address] [id number] [address] [place] [address], [place] [address] Oct, [facility] [address] [id number] [address] [place] [address], [place] [address] Oct, [facility] [address] [id number] [address] [place] [address], [place] [address] Oct, [facility] [address] [id number] [address] [place] [address], [place] [address] Sep, [facility] [address] [id number] [address] [place] [address], [place] [address] Sep, [facility] [address] [id number] [address] [place] [address], [place] [address] Sep, [facility] [address] [id number] [address] [place] [address], [place] [address] Aug, [facility] [address] [id number] [address] [place] [address], [place] [address] Aug, [facility] [address] [id number] [address] [place] [address], [place] [address] Jul, [facility] [address] [id number] [address] [place] [address], [place] [address] Jul, [facility] [address] [id number] [address] [place] [address], [place] [address] Jun, [facility] [address] [id number] [address] [place] [address], [place] [address] Jun, [facility] [address] [id number] [address] [place] [address], [place] [address] Jun, [facility] [address] [id number] [address] [place] [address], [place] [address] Jun, [facility] [address] [id number] [address] [place] [address], [place] [address] May, [facility] [address] [id number] [facility] [place] [address] May, [facility] [address] [id number] [address] [place] [address], [place] [address] May, [facility] [address] [id number] [address] [place] [address], [place] [address] Apr, [facility] [address] [id number] [address] [place] [address], [place] [address] Apr, [facility] [address] [id number] [address] [place] [address], [place] [address] Apr, [facility] [address] [id number] [address] [place] [address], [place] [address] Apr, [facility] [address] [id number] [address] [place] [address], [place] [address] March, [facility] [address] [id number] [address] [place] [address], [place] [address] March, [facility] [address] [id number] [address] [place] [address], [place] [address] March, [facility] [address] [id number] [address] [place] [address], [place] [address] March, [facility] [address] [id number] [address] [place] [address], [place] [address] Feb, [facility] [address] [id number] [address] [place] [address], [place] [address] Feb, [facility] [address] [id number] [address] [place] [address], [place] [address] Jan, [facility] [address] [id number] [address] [place] [address], [place] [address] Jan, [facility] [address] [id number] [address] [place] [address], [place] [address] Jan, [facility] [address] [id number] [address] [place] [address], [place] [address] Jan, [facility] [address] [id number] [address] [place] [address], [place] [address] Jan, [facility] [address] [id number] [address] [place] [address], [place] [address] Jan, [facility] [address] [id number] [address] [place] [address], [place] [address] Jan, [facility] [address] [id number] [address] [place] [address], [place] [address] Jan, [facility] [address] [id number] [address] [place] [address], [place] [address] Dec, [facility] [address] [id number] [address] [place] [address], [place] [address] Dec, [facility] [address] [id number] [address] [place] [address], [place] [address] Dec, [facility] [address] [id number] [address] [place] [address], [place] [address] Dec, [facility] [address] [id number] [address] [place] [address], [place] [address] Nov, [facility] [address] [id number] [address] [place] [address], [place] [address] Nov, [facility] [address] [id number] [address] [place] [address], [place] [address] Oct, [facility] [address] [id number] [address] [place] [address], [place] [address] Oct, [facility] [address] [id number] [address] [place] [address], [place] [address] Oct, [facility] [address] [id number] [address] [place] [address], [place] [address] Oct, [facility] [address] [id number] [address] [place] [address], [place] [address] Sep, [facility] [address] [id number] [address] [place] [address], [place] [address] Sep, [facility] [address] [id number] [address] [place] [address], [place] [address] Sep, [facility] [address] [id number] [address] [place] [address], [place] [address] Sep, [facility] [address] [id number] [address] [place] [address], [place] [address] Aug, [facility] [address] [id number] [address] [place] [address], [place] [address] Aug, [facility] [address] [id number] [address] [place] [address], [place] [address] Aug, [facility] [address] [id number] [address] [place] [address], [place] [address] Jul, [facility] [address] [id number] [address] [place] [address], [place] [address] Jul, [facility] [address] [id number] [address] [place] [address], [place] [address] Jun, [facility] [address] [id number] [address] [place] [address], [place] [address] Jun, [facility] [address] [id number] [address] [place] [address], [place] [address] May, [facility] [address] [id number] [address] [place] [address], [place] [address] May, [facility] [address] [id number] [address] [place] [address], [place] [address] Apr, [facility] [address] [id number] [address] [place] [address], [place] [address] March, [facility] [address] [id number] [address] [place] [address], [place] [address] March, [facility] [address] [id number] [address] [place] [address], [place] [address] Feb, [facility] [address] [id number] [address] [place] [address], [place] [address] Jan, [facility] [address] [id number] [address] [place] [address], [place] [address] Jan, [facility] [address] [id number] [address] [place] [address], [place] [address] Dec, [facility] [address] [id number] [address] [place] [address], [place] [address] Dec, [facility] [address] [id number] [address] [place] [address], [place] [address] Nov, [facility] [address] [id number] [address] [place] [address], [place] [address] Nov, [facility] [address] [id number] [address] [place] [address], [place] [address] Nov, [facility] [address] [id number] [address] [place] [address], [place] [address] Nov, [facility] [address] [id number] [address] [place] [address], [place] [address] Nov, [facility] [address] [id number] [address] [place] [address], [place] [address] Oct, [facility] [address] [id number] [address] [place] [address], [place] [address] 31 Oct, 2012 [facility] [address] [id number] [address] [place] [address], [place] [address] Oct, [facility] [address] [id number] [address] [place] [address], [place] [address] Oct, [facility] [address] [id number] [address] [place] [address], [place] [address] Oct, [facility] [address] [id number] [address] [place] [address], [place] [address] 05 Oct, 2012 [facility] [address] [id number] [address] [place] [address], [place] [address] 05 Oct, 2012 [facility] [address] [id number] [address] [place] [address], [place] [address] Oct, [facility] [address] [id number] [address] [place] [address], [place] [address] Sep, [facility] [address] [id number] [address] [place] [address], [place] [address] Sep, [facility] [address] [id number] [address] [place] [address], [place] [address] Sep, [facility] [address] [id number] [address] [place] [address], [place] [address] Aug, [facility] [address] [id number] [address] [place] [address], [place] [address] Aug, [facility] [address] [id number] [address] [place] [address], [place] [address] Aug, [facility] [address] [id number] [address] [place] [address], [place] [address] Aug, [facility] [address] [id number] [address] [place] [address], [place] [address] Aug, [facility] [address] [id number] [address] [place] [address], [place] [address] Jul, [facility] [address] [id number] [address] [place] [address], [place] [address] Jul, [facility] [address] [id number] [address] [place] [address], [place] [address] Jun, [facility] [address] [id number] [address] [place] [address], [place] [address] May, [facility] [address] [id number] [address] [place] [address], [place] [address] May, [facility] [address] [id number] [address] [place] [address], [place] [address] Apr, [facility] [address] [id number] [address] [place] [address], [place] [address] March, [facility] [address] [id number] [address] [place] [address], [place] [address] March, [facility] [address] [id number] [address] [place] [address], [place] [address] March, [facility] [address] [id number] [address] [place] [address], [place] [address] March, [facility] [address] [id number] [address] [place] [address], [place] [address] Feb, [facility] [address] [id number] [address] [place] [address], [place] [address] Feb, [facility] [address] [id number] [address] [place] [address], [place] [address] Jan, [facility] [address] [id number] [address] [place] [address], [place] [address] Dec, [facility] [address] [id number] [address] [place] [address], [place] [address] Dec, [facility] [address] [id number] [address] [place] [address], [place] [address] Dec, [facility] [address] [id number] [address] [place] [address], [place] [address] Nov, [facility] [address] [id number] [address] [place] [address], [place] [address] Nov, [facility] [address] [id number] [address] [place] [address], [place] [address] Nov, [facility] [address] [id number] [address] [place] [address], [place] [address] Oct, [facility] [address] [id number] [address] [place] [address], [place] [address] Sep, [facility] [address] [id number] [address] [place] [address] Aug, [facility] [address] [facility] [id number] [address] [place] [address] Aug, [facility] [address] [facility] [id number] [address] [place] [address] May, [facility] [address] [facility] [id number] [address] [place] [address] Sep, [facility] [address] [facility] [id number] [address] [place] [address] Sep, IMMUNIZATIONS No Known Immunizations SOCIAL HISTORY Never Assessed REASON FOR VISIT f/u Deep, AIMS, labs, PLAN OF CARE Activity Details Follow Up 3 Weeks Reason: VITAL SIGNS Height 74.5 in 2019-02-01 Weight 233.4 lbs 2019-02-01 Heart Rate 84 bpm 2019-02-01 Respiratory Rate 18 2019-02-01 BMI 29.56 kg/m2 2019-02-01 Blood pressure systolic 134 mmHg 2019-02-01 Blood pressure diastolic 82 mmHg 2019-02-01 MEDICATIONS Medication Instructions Dosage Frequency Start Date End Date Duration S tatus Vyvanse 70 MG Orally Once a day 1 capsule in the morning 24h Jan, Active Clonidine HCl 0.1 MG TAKE ONE TABLET BY MOUTH EVERY MORNING, TAKE TWO TABLETS AT 2:OO PM, AND TAKE ONE TABLET EVERY NIGHT AT BEDTIME Active Quetiapine Fumarate 200 MG Orally Once a day 0.5 (100mg) n ight one, 200mg night two, 300mg night 3 and 400mg night 4 and continue 400mg every night 24h 30 days Active Tums 500 MG Orally as needed for heartburn, not to e xceed 10 in 24 hours 1-2 tablets Sep, 30 day(s) Active Oxcarbazepine 300 MG Orally TID 1 tablet 8h Active Benadryl Allergy 25 mg Orally at bedtime as needed 1 tablet Active Tylenol 325 mg Orally every 4 hrs, not to exceed 10 in 24 hours 1-2 tablets as needed Sep, Active Seroquel 50 MG Orally twice a day 1 tablet inb the mor chloe and one tablet at 2pm 12h Jan, 30 day(s) Active Fluvoxamine Maleate 100 mg TAKE THREE TABLETS BY MOUTH EVERY NIGHT AT BEDTIME Active RESULTS No Results PROCEDURES No Known procedures INSTRUCTIONS MEDICATIONS ADMINISTERED No Known Medications MEDICAL (GENERAL) HISTORY Type Description Date Medical History bipolar Medical History adhd Medical History anxiety Medical History Intermittent explosive disorder Medical History Bipolar disorder Medical History Intellectual disability Surgical History No Surgical history information
--- OUTSIDE RECORDS SUMMARY | 2020-03-18 15:27 | XMS REPORT ---
Author Author Jose Cruz Mercer Doctor Organization [facility] Address Unknown Phone Unavailable Care Team Providers Care Road Mender Name Role Phone Migration, Doctor Unavailable Unavailable PROBLEMS Type Condition ICD9-CM Code [id number] Code Onset Dates Condition S tatus SNOMED Code Problem Bipolar disorder F31.9 Active 137 70492 Problem Intellectual disability F79 Active [id number] Problem Attention-deficit hyperactiv ity disorder, predominantly inattentive type F90.0 Active 95191808 Problem Intermittent explosive disorder F63.81 Active 50897503 Problem Attention deficit hyperactivity disorder F90.9 Active 604461563 Problem Bipolar disorder, currently in remission, most recent episode unspecified F31.70 Active 36302828 Problem Moderate intellectual disability F71 Active [id number] ALLERGIES No Information ENCOUNTERS Encounter Location Date Diagnosis [facility] [address] [facility] [id number] [address] [place] [address] May, [facility] [address] [facility] [id number] [address] [place] [phone] May, [facility] [address] [facility] [id number] [address] [place] [address] May, [facility] [address] [facility] [id number] [address] [place] [address] May, Bipolar disorder F31.9 [facility] [address] [facility] [id number] [address] [place] [address] May, Bipolar disorder F31.9 ; Att ention-deficit hyperactivity disorder, predominantly inattentive type F90.0 and Moderate intellectual disability F71 [facility] [address] [facility] [id number] [address] [place] [phone] Apr, Bipolar disorder F31.9 [facility] [address] [facility] [id number] [address] [place] [address] Apr, Bipolar disorder F31.9 and H igh risk medication use Z79.899 [facility] [address] [id number] [address] [place] [address] March, Bipolar disorder F31.9 and H igh risk medication use Z79.899 [facility] [address] [id number] [address] [place] [address] March, Bipolar disorder F31.[address] [facility] [id number] [place] [address] March, Caries K02.9 [facility] [address] [id number] [address] [place] [address] March, Bipolar disorder F31.9 [facility] [address] [id number] [address] [place] [address] March, Bipolar disorder F31.9 [facility] [address] [id number] [address] [place] [address] Feb, Bipolar disorder F31.9 [facility] [address] [id number] [address] [place] [address] Feb, Bipolar disorder F31.9 ; Att ention-deficit hyperactivity disorder, predominantly inattentive type F90.0 and Moderate intellectual disability F71 [facility] [address] [id number] [address] [place] [address] Jan, Bipolar disorder F31.9 [facility] [address] [id number] [address] [place] [address] Jan, Bipolar disorder F31.9 [facility] [address] [id number] [address] [place] [address] Jan, Dental examination Z01.20 ; 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 status requiring routine preventive dental care K08.9 and Caries K02.9 [facility] [address] [id number] [address] [place] [address] Jan, [facility] [address] [id number] [address] [place] [address] Jan, Bipolar disorder F31.9 ; Mod erate intellectual disability F71 and Attention-deficit hyperactivity disorder, predominantly inattentive type F90.0 [facility] [address] [id number] [address] [place] [address] Dec, Bipolar disorder, currently in remission, most recent episode unspecified F31.70 [facility] [address] [id number] [address] [place] [address] Dec, Bipolar disorder, currently in remission, most recent episode unspecified F31.70 [facility] [address] [id number] [address] [place] [address] Dec, Bipolar disorder, currently in remission, most recent episode unspecified F31.70 [facility] [address] [id number] [address] [place] [address] Dec, [facility] [address] [id number] [address] [place] [address] Dec, Bipolar disorder, currently in remission, most recent episode unspecified F31.70 [facility] [address] [id number] [address] [place] [address] Nov, Bipolar disorder, currently in remission, most recent episode unspecified F31.70 [facility] [address] [id number] [address] [place] [address] Nov, [facility] [address] [id number] [address] [place] [address] Nov, [facility] [address] [id number] [address] [place] [address] Nov, Bipolar disorder, currently in remission, most recent episode unspecified F31.70 [facility] [address] [id number] [address] [place] [address] Nov, Bipolar disorder, currently in remission, most recent episode unspecified F31.70 [facility] [address] [id number] [address] [place] [address] Oct, High risk medication use Z79 .899 ; Bipolar disorder F31.9 ; Moderate intellectual disability 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 and Attention-deficit hyperactivity disorder, predominantly inattentive type F90.0 [facility] [address] [id number] [address] [place] [address] Oct, [facility] [address] [facility] [id number] [address] [place] [address] Sep, Bipolar disorder, currently in remission, most recent episode unspecified F31.70 [facility] [address] [id number] [address] [place] [id number] Sep, 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 stat us requiring routine preventive dental care K08.9 and Arrested dental caries K02.3 [facility] [address] [facility] [id number] [address] [place] [address] Sep, Bipolar disorder, currently in remission, most recent episode unspecified F31.70 ; Moderate intellectual disability 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 and Attention-deficit hyperactivity disorder, predominantly inattentive type F90.0 [facility] [address] [id number] [address] [place] [address] Sep, Bipolar disorder, currently in remission, most recent episode unspecified F31.70 [facility] [address] [id number] [address] [place] [address] Aug, Bipolar disorder, currently in remission, most recent episode unspecified F31.70 [facility] [address] [id number] [address] [place] [address] 13 Jul, 2018 Bipolar disorder, currently in remission, most recent episode unspecified F31.70 [facility] [address] [id number] [address] [place] [address] Jul, Bipolar disorder, currently in remission, most recent episode unspecified F31.70 [facility] [address] [id number] [address] [place] [address] Jun, [facility] [address] [facility] [id number] [address] [place] [address] Jun, Bipolar disorder, currently in remission, most recent episode unspecified F31.70 [facility] [address] [id number] [address] [place] [id number] Jun, Dental examination Z01.20 an d Dental caries K02.9 [facility] [address] [id number] [address] [place] [address] May, Bipolar disorder, currently in remission, most recent episode unspecified F31.70 [facility] [address] [id number] [address] [place] [address] May, Bipolar disorder, currently in remission, most recent episode unspecified F31.70 [facility] [address] [id number] [address] [place] [address] May, Bipolar disorder, currently in remission, most recent episode unspecified F31.70 ; Moderate intellectual disability F71 and Attention-deficit hyperactivity disorder, predominantly inattentive type F90.0 [facility] [address] [id number] [address] [place] [address] Apr, Bipolar disorder, unspecifie d F31.9 [facility] [address] [id number] [address] [place] [address] Apr, [facility] [address] [id number] [address] [place] [address] Apr, [facility] [address] [id number] [address] [place] [address] Apr, [facility] [address] [id number] [address] [place] [address] March, [facility] [address] [id number] [address] [place] [address] March, Bipolar disorder, currently in remission, most recent episode unspecified F31.70 ; Moderate intellectual disability 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 and Attention-deficit hyperactivity disorder, predominantly inattentive type F90.0 [facility] [address] [id number] [address] [place] [address] Feb, [facility] [address] [id number] [address] [place] [id number] Feb, Dental examination Z01.20 [facility] [address] [id number] [address] [place] [phone] Jan, [facility] [address] [id number] [address] [place] [address] Jan, [facility] [address] [id number] [address] [place] [address] Dec, [facility] [address] [id number] [address] [place] [address] Nov, [facility] [address] [id number] [address] [place] [address] [id number] Nov, Encounter for dental exam an d cleaning w/o abnormal findings Z01.20 [facility] [address] [id number] [address] [place] [address] [id number] Nov, Dental examination Z01.20 [facility] [address] [id number] [address] [place] [address] Oct, [facility] [address] [id number] [address] [place] [address] Oct, Bipolar disorder, currently in remission, most recent episode unspecified F31.70 ; Moderate intellectual disability 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 and Attention-deficit hyperactivity disorder, predominantly inattentive type F90.0 [facility] [address] [id number] [address] [place] [address] Sep, [facility] [address] [id number] [address] [place] [address] Sep, [facility] [address] [id number] [address] [place] [address] Aug, [facility] [address] [id number] [address] [place] [address] Aug, Attention-deficit hyperactiv ity disorder, predominantly inattentive type F90.0 ; Moderate intellectual disability F71 and Bipolar disorder F31.9 [facility] [address] [id number] [address] [place] [address] [id number] Jul, 2017 Dental examination Z01.20 an d Dental caries K02.9 [facility] [address] [facility] [id number] [address] [place] [phone] 05 Jul, 2017 [facility] [address] [facility] [id number] [address] [place] [address] Jun, Bipolar disorder F31.9 ; Att ention-deficit hyperactivity disorder, predominantly inattentive type F90.0 and Moderate intellectual disability F71 [facility] [address] [facility] [id number] [address] [place] [address] Jun, [facility] [address] [facility] [id number] [address] [place] [address] May, [facility] [address] [facility] [id number] [address] [place] [address] Apr, [facility] [address] [place] [id number] [address] [place] [address] March, Intermittent explosive disor jocelyn F63.81 ; Attention deficit hyperactivity disorder F90.9 and Bipolar disorder F31.9 [facility] [address] [place] [id number] [address] [place] [address] Feb, [facility] [address] [facility] [id number] [address] [place] [address] Jan, [facility] [address] [place] [place] [id number] [address] [place] [address] 13 Dec, 2016 Encounter for immunization Z 23 [facility] [address] [facility] [id number] [address] [place] [phone] 13 Dec, 2016 Intermittent explosive disor jocelyn F63.81 ; Attention deficit hyperactivity disorder F90.9 and Bipolar disorder, currently in remission, most recent episode unspecified F31.70 [facility] [address] [facility] [id number] [address] [place] [address] Nov, [facility] [address] [id number] [address] [place] [phone] Oct, [facility] [place] [address] [id number] [address] [place] [address] Oct, [facility] [address] [id number] [address] [place] [address] [id number] Oct, Dental examination Z01.20 [facility] [address] [id number] [address] [place] [address] Sep, [facility] [address] [id number] [address] [place] [address] Sep, [facility] [address] [id number] [address] [place] [address] Sep, Intermittent explosive disor jocelyn F63.81 ; Bipolar disorder F31.9 and Attention deficit hyperactivity disorder F90.9 [facility] [address] [id number] [address] [place] [phone] Aug, [facility] [address] [id number] [address] [place] [address] Aug, [facility] [address] [id number] [address] [place] [phone] Aug, [facility] [address] [id number] [address] [place] [address] Aug, Attention deficit hyperactiv ity disorder F90.9 [facility] [address] [id number] [address] [place] [address] Jul, [facility] [address] [id number] [address] [place] [address] Jun, [facility] [address] [id number] [address] [place] [address] May, [facility] [address] [id number] [address] [place] [address] Apr, [facility] [address] [id number] [address] [place] [phone] Apr, Bipolar disorder F31.9 ; Att ention deficit hyperactivity disorder F90.9 and Intermittent explosive disorder F63.81 [facility] [address] [id number] [address] [place] [address] March, [facility] [address] [facility] [id number] [address] [place] [address] Feb, [facility] [address] [id number] [address] [place] [address] Feb, [facility] [address] [id number] [address] [place] [address] Jan, [facility] [address] [facility] [id number] [address] [place] [address] Jan, [facility] [address] [facility] [id number] [address] [place] [address] Dec, [facility] [address] [id number] [address] [place] [address] Nov, [facility] [address] [facility] [id number] [address] [place] [address] Nov, [facility] [address] [facility] [id number] [address] [place] [address] Nov, Attention deficit hyperactiv ity disorder F90.9 ; Intermittent explosive disorder F63.81 and Bipolar disorder F31.9 [facility] [address] [facility] [id number] [address] [place] [address] Oct, [facility] [address] [id number] [address] [place] [address] Oct, [facility] [address] [facility] [id number] [address] [place] [address] Sep, [facility] [address] [facility] [id number] [address] [place] [address] Aug, [facility] [address] [id number] [address] [place] [address] Jul, [facility] [address] [id number] [address] [place] [address] Jul, [facility] [address] [id number] [address] [place] [address] Jul, Anxiety, generalized 300.02 ; Bipolar disorder, unspecified 296.80 ; 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.00 ; 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 and Impulse control disorder, unspecified 312.30 [facility] [address] [id number] [address] [place] [address] Jul, [facility] [address] [id number] [address] [place] [address] Jun, [facility] [address] [facility] [id number] [address] [place] [address] May, [facility] [address] [id number] [address] [place] [address] Apr, [facility] [address] [id number] [address] [place] [address] Apr, Bipolar disorder, unspecifie d 296.80 ; Generalized anxiety disorder 300.02 and 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.00 [facility] [address] [id number] [address] [place] [address] Apr, [facility] [address] [id number] [address] [place] [phone] March, [facility] [address] [id number] [address] [place] [address] March, [facility] [address] [id number] [address] [place] [address] March, [facility] [address] [id number] [address] [place] [address] March, [facility] [address] [id number] [address] [place] [address] 14 Feb, 2015 [facility] [address] [id number] [address] [place] [address], [place] [address] 13 Feb, 2015 [facility] [address] [id number] [address] [place] [address], [place] [address] Jan, [facility] [address] [id number] [address] [place] [address], [place] [address] Jan, [facility] [address] [id number] [address] [place] [address], [place] [address] Jan, [facility] [address] [id number] [address] [place] [address], [place] [address] Jan, [facility] [address] [id number] [address] [place] [address], [place] [address] Jan, [facility] [address] [id number] [address] [place] [address], [place] [address] Dec, [facility] [address] [id number] [address] [place] [address], [place] [address] Dec, [facility] [address] [id number] [address] [place] [address], [place] [address] Nov, [facility] [address] [id number] [address] [place] [address], [place] [address] Nov, [facility] [address] [id number] [address] [place] [address], [place] [address] Nov, [facility] [address] [id number] [address] [place] [address] Oct, [facility] [address] [id number] [address] [place] [address], [place] [address] Oct, [facility] [address] [id number] [address] [place] [address], [place] [address] Oct, [facility] [address] [id number] [address] [place] [address], [place] [address] Oct, [facility] [address] [id number] [address] [place] [address], [place] [address] Oct, [facility] [address] [id number] [address] [place] [address], [place] [address] Oct, [facility] [address] [id number] [address] [place] [address], [place] [address] Sep, [facility] [address] [id number] [address] [place] [address], [place] [address] Sep, [facility] [address] [id number] [address] [place] [address], [place] [address] Sep, [facility] [address] [id number] [address] [place] [address], [place] [address] Aug, [facility] [address] [id number] [address] [place] [address], [place] [address] Aug, [facility] [address] [id number] [address] [place] [address], [place] [address] Jul, [facility] [address] [id number] [address] [place] [address], [place] [address] Jul, [facility] [address] [id number] [address] [place] [address], [place] [address] Jun, [facility] [address] [id number] [address] [place] [address], [place] [address] Jun, [facility] [address] [id number] [address] [place] [address], [place] [address] Jun, [facility] [address] [id number] [address] [place] [address], [place] [address] Jun, [facility] [address] [id number] [address] [place] [address], [place] [address] May, [facility] [address] [id number] [address] [place] [address], [place] [address] May, [facility] [address] [id number] [address] [place] [address], [place] [address] May, [facility] [address] [id number] [facility] [place] [address] Apr, [facility] [address] [id number] [facility] [place] [address] Apr, [facility] [address] [id number] [facility] [place] [address] Apr, [facility] [address] [id number] [address] [place] [address], [place] [address] Apr, [facility] [address] [id number] [facility] [place] [address] March, [facility] [address] [id number] [address] [place] [address], [place] [address] March, [facility] [address] [id number] [address] [place] [address], [place] [address] March, [facility] [address] [id number] [address] [place] [address], [place] [address] March, [facility] [address] [id number] [address] [place] [address], [place] [id number] Feb, [facility] [address] [id number] [address] [place] [address], [place] [id number] Feb, [facility] [address] [id number] [address] [place] [address], [place] [id number] Jan, [facility] [place] [facility] [address] [id number] [address] [place] [address], [place] [id number] Jan, [facility] [place] [facility] [address] [id number] [address] [place] [address], [place] [address] Jan, [facility] [place] [facility] [address] [id number] [address] [place] [address], [place] [address] Jan, [facility] [place] [facility] [address] [id number] [address] [place] [address], [place] [id number] Jan, [facility] [place] [facility] [address] [id number] [address] [place] [address] Jan, [facility] [address] [id number] [place] [address], [place] [address] Jan, [facility] [address] [id number] [address] [place] [address], [place] [address] Jan, [facility] [address] [id number] [address] [place] [address], [place] [address] Dec, [facility] [address] [id number] [address] [place] [address], [place] [address] Dec, [facility] [address] [id number] [address] [place] [address], [place] [address] Dec, [facility] [address] [id number] [address] [place] [address], [place] [address] Dec, [facility] [address] [id number] [address] [place] [address], [place] [address] Nov, [facility] [address] [id number] [address] [place] [address], [place] [address] Nov, [facility] [address] [id number] [address] [place] [address], [place] [address] Oct, [facility] [address] [id number] [address] [place] [address], [place] [address] Oct, [facility] [address] [id number] [address] [place] [address], [place] [address] Oct, [facility] [address] [id number] [address] [place] [address], [place] [address] Oct, [facility] [address] [id number] [address] [place] [address], [place] [address] Sep, [facility] [address] [id number] [address] [place] [address], [place] [address] Sep, [facility] [address] [id number] [address] [place] [address], [place] [address] Sep, [facility] [address] [id number] [address] [place] [address], [place] [address] Sep, [facility] [address] [id number] [address] [place] [address], [place] [address] Aug, [facility] [address] [id number] [address] [place] [address], [place] [address] Aug, [facility] [address] [id number] [address] [place] [address], [place] [address] Aug, [facility] [address] [id number] [address] [place] [address], [place] [address] Jul, [facility] [address] [id number] [address] [place] [address], [place] [address] Jul, [facility] [address] [id number] [address] [place] [address], [place] [address] Jun, [facility] [address] [id number] [address] [place] [address], [place] [address] Jun, [facility] [address] [id number] [address] [place] [address], [place] [address] May, [facility] [address] [id number] [address] [place] [address], [place] [address] May, [facility] [address] [id number] [address] [place] [address], [place] [address] Apr, [facility] [address] [id number] [address] [place] [address], [place] [address] March, [facility] [address] [id number] [address] [place] [address], [place] [address] March, [facility] [address] [id number] [address] [place] [address], [place] [address] Feb, [facility] [address] [id number] [address] [place] [address], [place] [address] Jan, [facility] [address] [id number] [address] [place] [address] Jan, [facility] [address] [id number] [address] [place] [address], [place] [address] Dec, [facility] [address] [id number] [address] [place] [address], [place] [address] Dec, [facility] [address] [id number] [address] [place] [address], [place] [address] Nov, [facility] [address] [id number] [address] [place] [address], [place] [address] Nov, [facility] [address] [id number] [address] [place] [address], [place] [address] Nov, [facility] [address] [id number] [address] [place] [address], [place] [address] Nov, [facility] [address] [id number] [address] [place] [address], [place] [address] Nov, [facility] [address] [id number] [address] [place] [address], [place] [address] Oct, [facility] [address] [id number] [address] [place] [address], [place] [address] Oct, [facility] [address] [id number] [address] [place] [address], [place] [address] Oct, [facility] [address] [id number] [address] [place] [address], [place] [address] Oct, [facility] [address] [id number] [address] [place] [address], [place] [address] Oct, [facility] [address] [id number] [address] [place] [address], [place] [address] Oct, [facility] [address] [id number] [address] [place] [address], [place] [address] Oct, [facility] [address] [id number] [address] [place] [address], [place] [address] Oct, [facility] [address] [id number] [address] [place] [address], [place] [address] Sep, [facility] [address] [id number] [address] [place] [address], [place] [address] Sep, [facility] [address] [id number] [address] [place] [address], [place] [address] Sep, [facility] [address] [id number] [address] [place] [address], [place] [address] Aug, [facility] [address] [id number] [address] [place] [address], [place] [address] Aug, [facility] [address] [id number] [address] [place] [address], [place] [address] Aug, [facility] [address] [id number] [address] [place] [address], [place] [address] Aug, [facility] [address] [id number] [address] [place] [address], [place] [address] Aug, [facility] [address] [id number] [address] [place] [address], [place] [address] Jul, [facility] [address] [id number] [address] [place] [address], [place] [address] Jul, [facility] [address] [id number] [address] [place] [address], [place] [address] Jun, [facility] [address] [id number] [address] [place] [address], [place] [address] May, [facility] [address] [id number] [address] [place] [address], [place] [address] May, [facility] [address] [id number] [address] [place] [address], [place] [address] Apr, [facility] [address] [id number] [address] [place] [address], [place] [address] March, [facility] [address] [id number] [address] [place] [address], [place] [address] March, [facility] [address] [id number] [address] [place] [address], [place] [address] March, [facility] [address] [id number] [address] [place] [address], [place] [address] March, [facility] [address] [id number] [address] [place] [address], [place] [address] Feb, [facility] [address] [id number] [address] [place] [address], [place] [address] Feb, [facility] [address] [id number] [address] [place] [address], [place] [address] Jan, [facility] [address] [id number] [address] [place] [address], [place] [address] Dec, [facility] [address] [id number] [address] [place] [address], [place] [address] Dec, [facility] [address] [id number] [address] [place] [address], [place] [address] Dec, [facility] [address] [id number] [address] [place] [address], [place] [address] Nov, [facility] [address] [id number] [address] [place] [address], [place] [address] Nov, [facility] [address] [id number] [address] [place] [address], [place] [address] Nov, [facility] [address] [id number] [address] [place] [address], [place] [address] Oct, [facility] [address] [id number] [address] [place] [address], [place] [address] Sep, [facility] [address] [id number] [address] [place] [address], [place] [address] Aug, [facility] [address] [id number] [address] [place] [address], [place] [address] Aug, [facility] [address] [id number] [address] [address] May, [facility] [address] [facility] [id number] [address] [place] [address] Sep, [facility] [address] [facility] [id number] [address] [place] [address] Sep, IMMUNIZATIONS No Known Immunizations SOCIAL HISTORY Never Assessed REASON FOR VISIT PLAN OF CARE VITAL SIGNS MEDICATIONS Unknown Medications RESULTS No Results PROCEDURES No Known procedures INSTRUCTIONS MEDICATIONS ADMINISTERED No Known Medications MEDICAL (GENERAL) HISTORY Type Description Date Medical History bipolar Medical History adhd Medical History anxiety Surgical History No Surgical history information
--- OUTSIDE RECORDS SUMMARY | 2020-03-18 15:27 | XMS REPORT ---
Author Author Joes Cruz Mercer Doctor Organization [facility] Address Unknown Phone Unavailable Care Team Providers Care Design Studio Consultant Name Role Phone Migration, Doctor Unavailable Unavailable PROBLEMS Type Condition ICD9-CM Code [id number] Code Onset Dates Condition S tatus SNOMED Code Problem Bipolar disorder F31.9 Active 137 24822 Problem Intellectual disability F79 Active 36002514 Problem Attention-deficit hyperactiv ity disorder, predominantly inattentive type F90.0 Active 82817205 Problem Intermittent explosive disorder F63.81 Active 43795681 Problem Attention deficit hyperactivity disorder F90.9 Active 009629821 Problem Bipolar disorder, currently in remission, most recent episode unspecified F31.70 Active 49851058 Problem Moderate intellectual disability F71 Active [id number] ALLERGIES No Information ENCOUNTERS Encounter Location Date Diagnosis [facility] [address] [facility] [id number] [address] [place] [address] May, [facility] [address] [facility] [id number] [address] [place] [address] May, [facility] [address] [facility] [id number] [address] [place] [address] May, [facility] [address] [facility] [id number] [address] [place] [address] May, Bipolar disorder F31.9 [facility] [address] [facility] [id number] [address] [place] [address] May, Bipolar disorder F31.9 ; Att ention-deficit hyperactivity disorder, predominantly inattentive type F90.0 and Moderate intellectual disability F71 [facility] [address] [facility] [id number] [address] [place] [address] Apr, Bipolar disorder F31.9 [facility] [address] [facility] [id number] [address] [place] [address] Apr, Bipolar disorder F31.9 and H igh risk medication use Z79.899 [facility] [address] [id number] [address] [place] [address] March, Bipolar disorder F31.9 and H igh risk medication use Z79.899 [facility] [address] [id number] [address] [place] [address] March, Bipolar disorder F31.[address] [id number] [place] [address] March, Caries K02.9 [facility] [address] [id number] [address] [place] [address] March, Bipolar disorder F31.9 [facility] [address] [id number] [address] [place] [address] March, Bipolar disorder F31.9 [facility] [address] [id number] [address] [place] [address] Feb, Bipolar disorder F31.9 [facility] [address] [id number] [address] [place] [address] Feb, Bipolar disorder F31.9 ; Att ention-deficit hyperactivity disorder, predominantly inattentive type F90.0 and Moderate intellectual disability F71 [facility] [address] [id number] [address] [place] [address] Jan, Bipolar disorder F31.9 [facility] [address] [id number] [address] [place] [address] Jan, Bipolar disorder F31.9 [facility] [address] [id number] [address] [place] [address] Jan, Dental examination Z01.20 ; 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 status requiring routine preventive dental care K08.9 and Caries K02.9 [facility] [address] [id number] [address] [place] [address] Jan, [facility] [address] [id number] [address] [place] [address] Jan, Bipolar disorder F31.9 ; Mod erate intellectual disability F71 and Attention-deficit hyperactivity disorder, predominantly inattentive type F90.0 [facility] [address] [id number] [address] [place] [address] Dec, Bipolar disorder, currently in remission, most recent episode unspecified F31.70 [facility] [address] [id number] [address] [place] [address] Dec, Bipolar disorder, currently in remission, most recent episode unspecified F31.70 [facility] [address] [id number] [address] [place] [address] Dec, Bipolar disorder, currently in remission, most recent episode unspecified F31.70 [facility] [address] [id number] [address] [place] [address] Dec, [facility] [address] [id number] [address] [place] [address] Dec, Bipolar disorder, currently in remission, most recent episode unspecified F31.70 [facility] [address] [id number] [address] [place] [address] Nov, Bipolar disorder, currently in remission, most recent episode unspecified F31.70 [facility] [address] [id number] [address] [place] [address] Nov, [facility] [address] [id number] [address] [place] [address] Nov, [facility] [address] [id number] [address] [place] [address] Nov, Bipolar disorder, currently in remission, most recent episode unspecified F31.70 [facility] [address] [id number] [address] [place] [address] Nov, Bipolar disorder, currently in remission, most recent episode unspecified F31.70 [facility] [address] [id number] [address] [place] [address] Oct, High risk medication use Z79 .899 ; Bipolar disorder F31.9 ; Moderate intellectual disability F71 and Attention-deficit hyperactivity disorder, predominantly inattentive type F90.0 [facility] [address] [id number] [address] [place] [address] Oct, [facility] [address] [facility] [id number] [address] [place] [address] Sep, Bipolar disorder, currently in remission, most recent episode unspecified F31.70 [facility] [address] [id number] [address] [place] [id number] Sep, 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 stat us requiring routine preventive dental care K08.9 and Arrested dental caries K02.3 [facility] [address] [facility] [id number] [address] [place] [address] Sep, Bipolar disorder, currently in remission, most recent episode unspecified F31.70 ; Moderate intellectual disability F71 and Attention-deficit hyperactivity disorder, predominantly inattentive type F90.0 [facility] [address] [id number] [address] [place] [address] Sep, Bipolar disorder, currently in remission, most recent episode unspecified F31.70 [facility] [address] [id number] [address] [place] [address] Aug, Bipolar disorder, currently in remission, most recent episode unspecified F31.70 [facility] [address] [id number] [address] [place] [address] 13 Jul, 2018 Bipolar disorder, currently in remission, most recent episode unspecified F31.70 [facility] [address] [id number] [address] [place] [address] Jul, Bipolar disorder, currently in remission, most recent episode unspecified F31.70 [facility] [address] [id number] [address] [place] [address] Jun, [facility] [address] [facility] [id number] [address] [place] [address] Jun, Bipolar disorder, currently in remission, most recent episode unspecified F31.70 [facility] [address] [id number] [address] [place] [id number] Jun, Dental examination Z01.20 an d Dental caries K02.9 [facility] [address] [id number] [address] [place] [address] May, Bipolar disorder, currently in remission, most recent episode unspecified F31.70 [facility] [address] [id number] [address] [place] [address] May, Bipolar disorder, currently in remission, most recent episode unspecified F31.70 [facility] [address] [id number] [address] [place] [address] May, Bipolar disorder, currently in remission, most recent episode unspecified F31.70 ; Moderate intellectual disability F71 and Attention-deficit hyperactivity disorder, predominantly inattentive type F90.0 [facility] [address] [id number] [address] [place] [address] Apr, Bipolar disorder, unspecifie d F31.9 [facility] [address] [id number] [address] [place] [address] Apr, [facility] [address] [id number] [address] [place] [address] Apr, [facility] [address] [id number] [address] [place] [address] Apr, [facility] [address] [id number] [address] [place] [address] March, [facility] [address] [id number] [address] [place] [address] March, Bipolar disorder, currently in remission, most recent episode unspecified F31.70 ; Moderate intellectual disability 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 and Attention-deficit hyperactivity disorder, predominantly inattentive type F90.0 [facility] [address] [id number] [address] [place] [address] Feb, [facility] [address] [id number] [address] [place] [id number] Feb, Dental examination Z01.20 [facility] [address] [id number] [address] [place] [address] Jan, [facility] [address] [id number] [address] [place] [address] Jan, [facility] [address] [id number] [address] [place] [address] Dec, [facility] [address] [id number] [address] [place] [address] Nov, [facility] [address] [id number] [address] [place] [address] [id number] Nov, Encounter for dental exam an d cleaning w/o abnormal findings Z01.20 [facility] [address] [id number] [address] [place] [address] [id number] Nov, Dental examination Z01.20 [facility] [address] [id number] [address] [place] [address] Oct, [facility] [address] [id number] [address] [place] [address] Oct, Bipolar disorder, currently in remission, most recent episode unspecified F31.70 ; Moderate intellectual disability 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 and Attention-deficit hyperactivity disorder, predominantly inattentive type F90.0 [facility] [address] [id number] [address] [place] [address] Sep, [facility] [address] [id number] [address] [place] [address] Sep, [facility] [address] [id number] [address] [place] [address] Aug, [facility] [address] [id number] [address] [place] [address] Aug, Attention-deficit hyperactiv ity disorder, predominantly inattentive type F90.0 ; Moderate intellectual disability F71 and Bipolar disorder F31.9 [facility] [address] [id number] [address] [place] [address] [id number] 11 Jul, 2017 Dental examination Z01.20 an d Dental caries K02.9 [facility] [address] [facility] [id number] [address] [place] [address] 05 Jul, 2017 [facility] [address] [facility] [id number] [address] [place] [address] Jun, Bipolar disorder F31.9 ; Att ention-deficit hyperactivity disorder, predominantly inattentive type F90.0 and Moderate intellectual disability F71 [facility] [address] [facility] [id number] [address] [place] [address] Jun, [facility] [address] [facility] [id number] [address] [place] [address] May, [facility] [address] [facility] [id number] [address] [place] [address] Apr, [facility] [address] [place] [id number] [address] [place] [address] March, Intermittent explosive disor jocelyn F63.81 ; Attention deficit hyperactivity disorder F90.9 and Bipolar disorder F31.9 [facility] [address] [place] [id number] [address] [place] [address] Feb, [facility] [address] [facility] [id number] [address] [place] [address] Jan, [facility] [address] [place] [id number] [address] [place] [address] 13 Dec, 2016 Encounter for immunization Z 23 [facility] [address] [facility] [id number] [address] [place] [address] 13 Dec, 2016 Intermittent explosive disor jocelyn F63.81 ; Attention deficit hyperactivity disorder F90.9 and Bipolar disorder, currently in remission, most recent episode unspecified F31.70 [facility] [address] [facility] [id number] [address] [place] [address] Nov, [facility] [address] [id number] [address] [place] [address] Oct, [facility] [address] [id number] [address] [place] [address] Oct, [facility] [address] [id number] [address] [place] [address] [id number] Oct, Dental examination Z01.20 [facility] [address] [id number] [address] [place] [address] Sep, [facility] [address] [id number] [address] [place] [address] Sep, [facility] [address] [id number] [address] [place] [address] Sep, Intermittent explosive disor jocelyn F63.81 ; Bipolar disorder F31.9 and Attention deficit hyperactivity disorder F90.9 [facility] [address] [id number] [address] [place] [address] Aug, [facility] [address] [id number] [address] [place] [address] Aug, [facility] [address] [id number] [address] [place] [address] Aug, [facility] [address] [id number] [address] [place] [address] Aug, Attention deficit hyperactiv ity disorder F90.9 [facility] [address] [id number] [address] [place] [address] Jul, [facility] [address] [id number] [address] [place] [address] Jun, [facility] [address] [id number] [address] [place] [address] May, [facility] [address] [id number] [address] [place] [address] Apr, [facility] [address] [id number] [address] [place] [address] Apr, Bipolar disorder F31.9 ; Att ention deficit hyperactivity disorder F90.9 and Intermittent explosive disorder F63.81 [facility] [address] [id number] [address] [place] [address] March, [facility] [address] [facility] [id number] [address] [place] [address] Feb, [facility] [address] [id number] [address] [place] [address] Feb, [facility] [address] [id number] [address] [place] [address] Jan, [facility] [address] [facility] [id number] [address] [place] [address] Jan, [facility] [address] [facility] [id number] [address] [place] [address] Dec, [facility] [address] [id number] [address] [place] [address] Nov, [facility] [address] [facility] [id number] [address] [place] [address] Nov, [facility] [address] [facility] [id number] [address] [place] [address] Nov, Attention deficit hyperactiv ity disorder F90.9 ; Intermittent explosive disorder F63.81 and Bipolar disorder F31.9 [facility] [address] [facility] [id number] [address] [place] [address] Oct, [facility] [address] [id number] [address] [place] [address] Oct, [facility] [address] [facility] [id number] [address] [place] [address] Sep, [facility] [address] [facility] [id number] [address] [place] [address] Aug, [facility] [address] [id number] [address] [place] [address] Jul, [facility] [address] [id number] [address] [place] [address] Jul, [facility] [address] [id number] [address] [place] [address] Jul, Anxiety, generalized 300.02 ; Bipolar disorder, unspecified 296.80 ; 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.00 ; 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 and Impulse control disorder, unspecified 312.30 [facility] [address] [id number] [address] [place] [address] Jul, [facility] [address] [id number] [address] [place] [address] Jun, [facility] [address] [facility] [id number] [address] [place] [address] May, [facility] [address] [id number] [address] [place] [address] Apr, [facility] [address] [id number] [address] [place] [address] Apr, Bipolar disorder, unspecifie d 296.80 ; Generalized anxiety disorder 300.02 and 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.00 [facility] [address] [id number] [address] [place] [address] Apr, [facility] [address] [id number] [address] [place] [address] March, [facility] [address] [id number] [address] [place] [address] March, [facility] [address] [id number] [address] [place] [address] March, [facility] [address] [id number] [address] [place] [address] March, [facility] [address] [id number] [address] [place] [address] 14 Feb, 2015 [facility] [address] [id number] [address] [place] [address], [place] [address] 13 Feb, 2015 [facility] [address] [id number] [address] [place] [address], [place] [address] Jan, [facility] [address] [id number] [address] [place] [address], [place] [address] Jan, [facility] [address] [id number] [address] [place] [address], [place] [address] Jan, [facility] [address] [id number] [address] [place] [address], [place] [address] Jan, [facility] [address] [id number] [address] [place] [address], [place] [address] Jan, [facility] [address] [id number] [address] [place] [address], [place] [address] Dec, [facility] [address] [id number] [address] [place] [address], [place] [address] Dec, [facility] [address] [id number] [address] [place] [address], [place] [address] Nov, [facility] [address] [id number] [address] [place] [address], [place] [address] Nov, [facility] [address] [id number] [address] [place] [address], [place] [address] Nov, [facility] [address] [id number] [address] [place] [address] Oct, [facility] [address] [id number] [address] [place] [address], [place] [address] Oct, [facility] [address] [id number] [address] [place] [address], [place] [address] Oct, [facility] [address] [id number] [address] [place] [address], [place] [address] Oct, [facility] [address] [id number] [address] [place] [address], [place] [address] Oct, [facility] [address] [id number] [address] [place] [address], [place] [address] Oct, [facility] [address] [id number] [address] [place] [address], [place] [address] Sep, [facility] [address] [id number] [address] [place] [address], [place] [address] Sep, [facility] [address] [id number] [address] [place] [address], [place] [address] Sep, [facility] [address] [id number] [address] [place] [address], [place] [address] Aug, [facility] [address] [id number] [address] [place] [address], [place] [address] Aug, [facility] [address] [id number] [address] [place] [address], [place] [address] Jul, [facility] [address] [id number] [address] [place] [address], [place] [address] Jul, [facility] [address] [id number] [address] [place] [address], [place] [address] Jun, [facility] [address] [id number] [address] [place] [address], [place] [address] Jun, [facility] [address] [id number] [address] [place] [address], [place] [address] Jun, [facility] [address] [id number] [address] [place] [address], [place] [address] Jun, [facility] [address] [id number] [address] [place] [address], [place] [address] May, [facility] [address] [id number] [address] [place] [address], [place] [address] May, [facility] [address] [id number] [address] [place] [address], [place] [address] May, [facility] [address] [id number] [facility] [address] Apr, [facility] [address] [id number] [facility] [address] Apr, [facility] [address] [id number] [facility] [address] Apr, [facility] [address] [id number] [address] [place] [address], [place] [address] Apr, [facility] [address] [id number] [facility] [address] March, [facility] [address] [id number] [address] [place] [address], [place] [address] March, [facility] [address] [id number] [address] [place] [address], [place] [address] March, [facility] [address] [id number] 44 [place] [address], [place] [address] March, [facility] [address] [id number] [address] [place] [address], [place] [address] Feb, [facility] [place] [address] [id number] [address] [place] [address], [place] [address] Feb, [facility] [address] [id number] [address] [place] [address], [place] [address] Jan, [facility] [place] [facility] [address] [id number] [address] [place] [address], [place] [address] Jan, [facility] [place] [facility] [address] [id number] [address] [place] [address], [place] [address] Jan, [facility] [place] [facility] [address] [id number] [address] [place] [address], [place] [address] Jan, [facility] [place] [facility] [address] [id number] [address] [place] [address], [place] [address] Jan, [facility] [place] [facility] [address] [id number] [address] [place] [address] Jan, [facility] [address] [id number] [address] [place] [address], [place] [address] Jan, [facility] [address] [id number] [address] [place] [address], [place] [address] Jan, [facility] [address] [id number] [address] [place] [address], [place] [address] Dec, [facility] [address] [id number] [address] [place] [address], [place] [address] Dec, [facility] [address] [id number] [address] [place] [address], [place] [address] Dec, [facility] [address] [id number] [address] [place] [address], [place] [address] Dec, [facility] [address] [id number] [address] [place] [address], [place] [address] Nov, [facility] [address] [id number] [address] [place] [address], [place] [address] Nov, [facility] [address] [id number] [address] [place] [address], [place] [address] Oct, [facility] [address] [id number] [address] [place] [address], [place] [address] Oct, [facility] [address] [id number] [address] [place] [address], [place] [address] Oct, [facility] [address] [id number] [address] [place] [address], [place] [address] Oct, [facility] [address] [id number] [address] [place] [address], [place] [address] Sep, [facility] [address] [id number] [address] [place] [address], [place] [address] Sep, [facility] [address] [id number] [address] [place] [address], [place] [address] Sep, [facility] [address] [id number] [address] [place] [address], [place] [address] Sep, [facility] [address] [id number] [address] [place] [address], [place] [address] Aug, [facility] [address] [id number] [address] [place] [address], [place] [address] Aug, [facility] [address] [id number] [address] [place] [address], [place] [address] Aug, [facility] [address] [id number] [address] [place] [address], [place] [address] Jul, [facility] [address] [id number] [address] [place] [address], [place] [address] Jul, [facility] [address] [id number] [address] [place] [address], [place] [address] Jun, [facility] [address] [id number] [address] [place] [address], [place] [address] Jun, [facility] [address] [id number] [address] [place] [address], [place] [address] May, [facility] [address] [id number] [address] [place] [address], [place] [address] May, [facility] [address] [id number] [address] [place] [address], [place] [address] Apr, [facility] [address] [id number] [address] [place] [address], [place] [address] March, [facility] [address] [id number] [address] [place] [address], [place] [address] March, [facility] [address] [id number] [address] [place] [address], [place] [address] Feb, [facility] [place] [facility] [address] [id number] [address] [place] [address], [place] [address] Jan, [facility] [place] [facility] [address] [id number] [address] [place] [id number] Jan, [facility] [address] [id number] [address] [place] [address], [place] [address] Dec, [facility] [address] [id number] [address] [place] [address], [place] [address] Dec, [facility] [address] [id number] [address] [place] [address], [place] [address] Nov, [facility] [address] [id number] [address] [place] [address], [place] [address] Nov, [facility] [address] [id number] [address] [place] [address], [place] [address] Nov, [facility] [address] [id number] [address] [place] [address], [place] [address] Nov, [facility] [address] [id number] [address] [place] [address], [place] [address] Nov, [facility] [address] [id number] [address] [place] [address], [place] [address] Oct, [facility] [address] [id number] [address] [place] [address], [place] [address] Oct, [facility] [address] [id number] [address] [place] [address], [place] [address] Oct, [facility] [address] [id number] [address] [place] [address], [place] [address] Oct, [facility] [address] [id number] [address] [place] [address], [place] [address] Oct, [facility] [address] [id number] [address] [place] [address], [place] [address] Oct, [facility] [address] [id number] [address] [place] [address], [place] [address] Oct, [facility] [address] [id number] [address] [place] [address], [place] [address] Oct, [facility] [place] [facility] [address] [id number] [address] [place] [address], [place] [address] Sep, [facility] [place] [facility] [address] [id number] [address] [place] [address], [place] [address] Sep, [facility] [place] [facility] [address] [id number] [address] [place] [address], [place] [address] Sep, [facility] [place] [facility] [address] [id number] [address] [place] [address], [place] [address] Aug, [facility] [place] [facility] [address] [id number] [address] [place] [address], [place] [address] Aug, [facility] [place] [facility] [address] [id number] [address] [place] [address], [place] [address] Aug, [facility] [address] [id number] [address] [place] [address], [place] [address] Aug, [facility] [place] [facility] [address] [id number] [address] [place] [address], [place] [address] Aug, [facility] [address] [id number] [address] [place] [address], [place] [address] Jul, [facility] [place] [facility] [address] [id number] [address] [place] [address], [place] [address] Jul, [facility] [place] [facility] [address] [id number] [address] [place] [address], [place] [address] Jun, [facility] [place] [facility] [address] [id number] [address] [place] [address], [place] [address] May, [facility] [place] [facility] [address] [id number] [address] [place] [address], [place] [address] May, [facility] [place] [facility] [address] [id number] [address] [place] [address], [place] [address] Apr, [facility] [place] [facility] [address] [id number] [address] [place] [address], [place] [address] March, [facility] [place] [facility] [address] [id number] [address] [place] [address], [place] [address] March, [facility] [address] [id number] [address] [place] [address], [place] [address] March, [facility] [address] [id number] [address] [place] [address], [place] [address] March, [facility] [address] [id number] [address] [place] [address], [place] [address] Feb, [facility] [address] [id number] [address] [place] [address], [place] [address] Feb, [facility] [address] [id number] [address] [place] [address], [place] [address] Jan, [facility] [address] [id number] [address] [place] [address], [place] [address] Dec, [facility] [address] [id number] [address] [place] [address], [place] [address] Dec, [facility] [address] [id number] [address] [place] [address], [place] [address] Dec, [facility] [address] [id number] [address] [place] [address], [place] [address] Nov, [facility] [address] [id number] [address] [place] [address], [place] [address] Nov, [facility] [address] [id number] [address] [place] [address], [place] [address] Nov, [facility] [address] [id number] [address] [place] [address], [place] [address] Oct, [facility] [address] [id number] [address] [place] [address], [place] [address] Sep, [facility] [address] [id number] [address] [place] [address], [place] [address] Aug, [facility] [address] [id number] [address] [place] [address], [place] [address] Aug, [facility] [place] [facility] [address] [id number] [address] [address] May, [facility] [address] [facility] [id number] [address] [place] [address] Sep, [facility] [address] [facility] [id number] [address] [place] [address] Sep, IMMUNIZATIONS No Known Immunizations SOCIAL HISTORY Never Assessed REASON FOR VISIT PLAN OF CARE VITAL SIGNS MEDICATIONS Unknown Medications RESULTS No Results PROCEDURES No Known procedures INSTRUCTIONS MEDICATIONS ADMINISTERED No Known Medications MEDICAL (GENERAL) HISTORY Type Description Date Medical History bipolar Medical History adhd Medical History anxiety Surgical History No Surgical history information
--- OUTSIDE RECORDS SUMMARY | 2020-03-18 15:28 | XMS REPORT ---
Author Author Jose Cruz Bonilla Organization [facility] Address Unknown Care Team Providers Care Periodontal Assistant Name Role Phone BRODIE Bonilla Unavailable PROBLEMS Type Condition ICD9-CM Code EUM37-LV Code Onset Dates Condition S tatus SNOMED Code Problem 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 Ac tive 00774200 Problem Encounter for long-term (current) use of other medications V58.69 Active 974637109 Problem Bipolar disorder, unspecified 296.80 Active 10219656 Problem Bipolar I disorder, most recent episode (or current) mixed, moderate 296.62 Active 662189360 Problem Bipolar disorder F31.9 Active 137 80818 Problem Intellectual disability F79 Active 75040255 Problem Generalized anxiety disorder 300.02 A ctive 50800619 Problem Attention-deficit hyperactiv ity disorder, predominantly inattentive type F90.0 Active 00979628 Problem 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 314.00 Active 84646913 Problem Intermittent explosive disorder F63.81 Active 89339239 Problem Attention deficit hyperactivity disorder F90.9 Active 314963416 Problem Bipolar disorder, currently in remission, most recent episode unspecified F31.70 Active 77655940 Problem Moderate intellectual disability F71 Active 42710748 ALLERGIES No Information ENCOUNTERS Encounter Location Date Diagnosis [facility] [address] [facility] [id number] [address] [place] [phone] May, [facility] [address] [facility] [id number] [address] [place] [phone] May, OUT[facility] [id number] [place] [phone] May, [facility] [address] [facility] [id number] [address] [place] [phone] May, [facility] [address] [facility] [id number] [address] [place] [address] Apr, Bipolar disorder F31.9 [facility] [address] [id number] [address] [place] [address] Apr, Bipolar disorder F31.9 and H igh risk medication use Z79.899 [facility] [address] [id number] [address] [place] [phone] March, Bipolar disorder F31.9 and H igh risk medication use Z79.899 [facility] [address] [id number] [address] [place] [address] March, Bipolar disorder F31.[address] [id number] [place] [address] March, Caries K02.9 [facility] [address] [id number] [address] [place] [address] March, Bipolar disorder F31.9 [facility] [address] [id number] [address] [place] [address] March, Bipolar disorder F31.9 [facility] [address] [id number] [address] [place] [phone] Feb, Bipolar disorder F31.9 [facility] [address] [id number] [address] [place] [address] Feb, Bipolar disorder F31.9 ; Att ention-deficit hyperactivity disorder, predominantly inattentive type F90.0 and Moderate intellectual disability 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 [facility] [address] [id number] [address] [place] [address] Jan, Bipolar disorder F31.9 [facility] [address] [id number] [address] [place] [address] Jan, Bipolar disorder F31.9 [facility] [address] [id number] [address] [place] [address] Jan, Dental examination Z01.20 ; 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 status requiring routine preventive dental care K08.9 and Caries K02.9 [facility] [address] [id number] [address] [place] [phone] Jan, [facility] [address] [id number] [address] [place] [phone] Jan, Bipolar disorder F31.9 ; Mod erate intellectual disability F71 and Attention-deficit hyperactivity disorder, predominantly inattentive type F90.0 [facility] [address] [id number] [address] [place] [id number] Dec, Bipolar disorder, currently in remission, most recent episode unspecified F31.70 [facility] [address] [id number] [address] [place] [address] Dec, Bipolar disorder, currently in remission, most recent episode unspecified F31.70 [facility] [address] [id number] [address] [place] [id number] Dec, Bipolar disorder, currently in remission, most recent episode unspecified F31.70 [facility] [address] [id number] [address] [place] [phone] Dec, [facility] [address] [id number] [address] [place] [id number] Dec, Bipolar disorder, currently in remission, most recent episode unspecified F31.70 [facility] [address] [id number] [address] [place] [address] Nov, Bipolar disorder, currently in remission, most recent episode unspecified F31.70 [facility] [address] [id number] [address] [place] [phone] Nov, [facility] [address] [id number] [address] [place] [address] Nov, [facility] [address] [facility] [id number] [address] [place] [id number] Nov, Bipolar disorder, currently in remission, most recent episode unspecified F31.70 [facility] [address] [id number] [address] [place] [address] Nov, Bipolar disorder, currently in remission, most recent episode unspecified F31.70 [facility] [address] [id number] [address] [place] [address] Oct, High risk medication use Z79 .899 ; Bipolar disorder F31.9 ; Moderate intellectual disability F71 and Attention-deficit hyperactivity disorder, predominantly inattentive type F90.0 [facility] [address] [id number] [address] [place] [address] Oct, [facility] [address] [id number] [address] [place] [address] Sep, Bipolar disorder, currently in remission, most recent episode unspecified F31.70 [facility] [address] [id number] [address] [place] [id number] Sep, 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 stat us requiring routine preventive dental care K08.9 and Arrested dental caries K02.3 [facility] [address] [facility] [id number] [address] [place] [address] Sep, Bipolar disorder, currently in remission, most recent episode unspecified F31.70 ; Moderate intellectual disability F71 and Attention-deficit hyperactivity disorder, predominantly inattentive type F90.0 [facility] [address] [facility] [id number] [address] [place] [address] Sep, Bipolar disorder, currently in remission, most recent episode unspecified F31.70 [facility] [address] [id number] [address] [place] [address] Aug, Bipolar disorder, currently in remission, most recent episode unspecified F31.70 [facility] [address] [id number] [address] [place] [id number] Jul, Bipolar disorder, currently in remission, most recent episode unspecified F31.70 [facility] [address] [id number] [address] [place] [phone] Jul, Bipolar disorder, currently in remission, most recent episode unspecified F31.70 [facility] [address] [id number] [address] [place] [phone] Jun, [facility] [address] [id number] [address] [place] [address] Jun, Bipolar disorder, currently in remission, most recent episode unspecified F31.70 [facility] [address] [id number] [address] [place] [id number] 08 Jun, 2018 Dental examination Z01.20 an d Dental caries K02.9 [facility] [address] [id number] [address] [place] [phone] May, Bipolar disorder, currently in remission, most recent episode unspecified F31.70 [facility] [address] [id number] [address] [place] [phone] May, Bipolar disorder, currently in remission, most recent episode unspecified F31.70 [facility] [address] [id number] [address] [place] [phone] May, Bipolar disorder, currently in remission, most recent episode unspecified F31.70 ; Moderate intellectual disability F71 and Attention-deficit hyperactivity disorder, predominantly inattentive type F90.0 [facility] [address] [id number] [address] [place] [id number] Apr, Bipolar disorder, unspecifie d F31.9 [facility] [address] [id number] [address] [place] [address] Apr, [facility] [address] [id number] [address] [place] [phone] Apr, [facility] [address] [id number] [address] [place] [phone] Apr, [facility] [address] [id number] [address] [place] [phone] March, [facility] [address] [id number] [address] [place] [address] March, Bipolar disorder, currently in remission, most recent episode unspecified F31.70 ; Moderate intellectual disability F71 and Attention-deficit hyperactivity disorder, predominantly inattentive type F90.0 [facility] [address] [id number] [address] [place] [phone] Feb, [facility] [address] [id number] [address] [place] [id number] Feb, Dental examination Z01.20 [facility] [address] [id number] [address] [place] [phone] Jan, [facility] [address] [id number] [address] [place] [phone] Jan, [facility] [address] [id number] [address] [place] [address] Dec, [facility] [address] [id number] [address] [place] [phone] Nov, [facility] [address] [id number] [address] [place] [address] [id number] Nov, Dental examination Z01.20 [facility] [address] [id number] [address] [place] [id number] Nov, Encounter for dental exam an d cleaning w/o abnormal findings Z01.20 [facility] [address] [id number] [address] [place] [phone] Oct, [facility] [address] [id number] [address] [place] [phone] Oct, Bipolar disorder, currently in remission, most recent episode unspecified F31.70 ; Moderate intellectual disability F71 and Attention-deficit hyperactivity disorder, predominantly inattentive type F90.0 [facility] [address] [id number] [address] [place] [address] Sep, [facility] [address] [id number] [address] [place] [phone] Sep, [facility] [address] [id number] [address] [place] [phone] Aug, [facility] [address] [id number] [address] [place] [phone] Aug, Attention-deficit hyperactiv ity disorder, predominantly inattentive type F90.0 ; Moderate intellectual disability F71 and Bipolar disorder F31.9 [facility] [address] [id number] [address] [place] [address] [id number] 11 Jul, 2017 Dental examination Z01.20 an d Dental caries K02.9 [facility] [address] [id number] [address] [place] [id number] 05 Jul, 2017 [facility] [address] [id number] [address] [place] [phone] Jun, Bipolar disorder F31.9 ; Att ention-deficit hyperactivity disorder, predominantly inattentive type F90.0 and Moderate intellectual disability 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 [facility] [address] [id number] [address] [place] [phone] Jun, [facility] [address] [id number] [address] [place] [phone] May, [facility] [address] [id number] [address] [place] [phone] Apr, [facility] [address] [facility] [id number] [address] [place] [phone] March, Intermittent explosive disor jocelyn F63.81 ; Attention deficit hyperactivity disorder F90.9 and Bipolar disorder F31.9 [facility] [address] [id number] [address] [place] [phone] Feb, [facility] [address] [facility] [id number] [address] [place] [phone] Jan, [facility] [address] [facility] [id number] [address] [place] [phone] 13 Dec, 2016 Intermittent explosive disor jocelyn F63.81 ; Attention deficit hyperactivity disorder F90.9 and Bipolar disorder, currently in remission, most recent episode unspecified F31.70 [facility] [address] [id number] [address] [place] [id number] 13 Dec, 2016 Encounter for immunization Z 23 [facility] [address] [id number] [address] [place] [phone] Nov, [facility] [address] [facility] [id number] [address] [place] [phone] Oct, [facility] [address] [facility] [id number] [address] [place] [phone] Oct, [facility] [address] [id number] [address] [place] [address] [id number] Oct, Dental examination Z01.20 [facility] [address] [facility] [id number] [address] [place] [phone] Sep, [facility] [address] [place] [id number] [address] [place] [phone] Sep, [facility] [address] [facility] [id number] [address] [place] [address] Sep, Intermittent explosive disor jocelyn F63.81 ; Bipolar disorder F31.9 and Attention deficit hyperactivity disorder F90.9 [facility] [address] [facility] [id number] [address] [place] [phone] Aug, [facility] [address] [facility] [id number] [address] [place] [phone] Aug, [facility] [address] [facility] [id number] [address] [place] [phone] Aug, [facility] [address] [facility] [id number] [address] [place] [phone] Aug, Attention deficit hyperactiv ity disorder F90.9 [facility] [address] [facility] [id number] [address] [place] [phone] Jul, [facility] [address] [facility] [id number] [address] [place] [phone] Jun, [facility] [address] [facility] [id number] [address] [place] [phone] May, [facility] [address] [id number] [address] [place] [phone] Apr, [facility] [address] [facility] [id number] [address] [place] [phone] Apr, Bipolar disorder F31.9 ; Att ention deficit hyperactivity disorder F90.9 and Intermittent explosive disorder F63.81 [facility] [address] [id number] [address] [place] [phone] March, [facility] [address] [id number] [address] [place] [phone] Feb, [facility] [address] [id number] [address] [place] [phone] Feb, [facility] [address] [facility] [id number] [address] [place] [phone] Jan, [facility] [address] [id number] [address] [place] [phone] Jan, [facility] [address] [id number] [address] [place] [phone] Dec, [facility] [address] [facility] [id number] [address] [place] [phone] Nov, [facility] [address] [id number] [address] [place] [phone] Nov, [facility] [address] [facility] [id number] [address] [place] [phone] Nov, Attention deficit hyperactiv ity disorder F90.9 ; Intermittent explosive disorder F63.81 and Bipolar disorder F31.9 [facility] [address] [id number] [address] [place] [phone] Oct, [facility] [address] [facility] [id number] [address] [place] [phone] Oct, [facility] [address] [facility] [id number] [address] [place] [phone] Sep, [facility] [address] [id number] [address] [place] [phone] Aug, [facility] [address] [facility] [id number] [address] [place] [phone] Jul, [facility] [address] [facility] [id number] [address] [place] [phone] Jul, [facility] [address] [facility] [id number] [address] [place] [address] Jul, Anxiety, generalized 300.02 ; Bipolar disorder, unspecified 296.80 ; 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.00 ; 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 and Impulse control disorder, unspecified 312.30 [facility] [address] [facility] [id number] [address] [place] [phone] Jul, [facility] [address] [facility] [id number] [address] [place] [phone] Jun, [facility] [address] [facility] [id number] [address] [place] [phone] May, [facility] [address] [facility] [id number] [address] [place] [phone] Apr, [facility] [address] [facility] [id number] [address] [place] [address] Apr, Bipolar disorder, unspecifie d 296.80 ; Generalized anxiety disorder 300.02 and 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.00 [facility] [address] [facility] [id number] [address] [place] [phone] Apr, [facility] [address] [facility] [id number] [address] [place] [phone] March, [facility] [address] [facility] [id number] [address] [place] [phone] March, [facility] [address] [facility] [id number] [address] [place] [phone] March, [facility] [address] [id number] [address] [place] [address], [place] [address] March, [facility] [address] [id number] [address] [place] [address], [place] [address] 14 Feb, 2015 [facility] [address] [id number] [address] [place] [address], [place] [address] Feb, [facility] [address] [id number] [address] [place] [address], [place] [address] Jan, [facility] [address] [id number] [address] [place] [address], [place] [address] Jan, [facility] [address] [id number] [address] [place] [address], [place] [address] Jan, [facility] [address] [id number] [address] [place] [address], [place] [address] Jan, [facility] [address] [id number] [address] [place] [address], [place] [address] Jan, [facility] [address] [id number] [address] [place] [address], [place] [address] Dec, [facility] [address] [id number] [address] [place] [address], [place] [address] Dec, [facility] [address] [id number] [address] [place] [address], [place] [address] Nov, [facility] [address] [id number] [address] [place] [address], [place] [address] Nov, [facility] [address] [id number] [address] [place] [address], [place] [address] Nov, [facility] [address] [id number] [address] [place] [address], [place] [address] Oct, [facility] [address] [id number] [address] [place] [address], [place] [address] Oct, [facility] [address] [id number] [address] [place] [address], [place] [address] Oct, [facility] [address] [id number] [address] [place] [address], [place] [address] Oct, [facility] [address] [id number] [address] [place] [address], [place] [address] Oct, [facility] [address] [id number] [address] [place] [address], [place] [address] Oct, [facility] [address] [id number] [address] [place] [address], [place] [address] Sep, [facility] [address] [id number] [address] [place] [address], [place] [address] Sep, [facility] [address] [id number] [address] [place] [address], [place] [address] Sep, [facility] [address] [id number] [address] [place] [address], [place] [address] Aug, [facility] [address] [id number] [address] [place] [address], [place] [address] Aug, [facility] [address] [id number] [address] [place] [address], [place] [address] Jul, [facility] [address] [id number] [address] [place] [address], [place] [address] Jul, [facility] [address] [id number] [address] [place] [address], [place] [address] Jun, [facility] [address] [id number] [address] [place] [address], [place] [address] Jun, [facility] [address] [id number] [address] [place] [address], [place] [address] Jun, [facility] [address] [id number] [address] [place] [address], [place] [address] Jun, [facility] [address] [id number] [address] [place] [address], [place] [address] May, [facility] [address] [id number] [address] [place] [address], [place] [address] May, [facility] [address] [id number] [address] [place] [address], [place] [address] May, [facility] [address] [id number] [address] [place] [address], [place] [address] Apr, [facility] [address] [id number] [address] [place] [address], [place] [address] Apr, [facility] [address] [id number] [address] [place] [address], [place] [address] Apr, [facility] [address] [id number] [address] [place] [address], [place] [address] Apr, [facility] [address] [id number] [address] [place] [address], [place] [address] March, [facility] [address] [id number] [address] [place] [address], [place] [address] March, [facility] [address] [id number] [address] [place] [address], [place] [address] March, [facility] [address] [id number] [address] [place] [address], [place] [address] March, [facility] [address] [id number] [address] [place] [address], [place] [address] Feb, [facility] [address] [id number] [address] [place] [address], [place] [address] Feb, [facility] [address] [id number] [address] [place] [address], [place] [address] Jan, [facility] [address] [id number] [address] [place] [address], [place] [address] Jan, [facility] [address] [id number] [address] [place] [address], [place] [address] Jan, [facility] [address] [id number] [address] [place] [address], [place] [address] Jan, [facility] [address] [id number] [address] [place] [address], [place] [address] Jan, [facility] [address] [id number] [address] [place] [address], [place] [address] Jan, [facility] [address] [id number] [address] [place] [address], [place] [address] Jan, [facility] [address] [id number] [address] [place] [address], [place] [address] Jan, [facility] [address] [id number] [address] [place] [address], [place] [address] Dec, [facility] [address] [id number] [address] [place] [address], [place] [address] Dec, [facility] [address] [id number] [address] [place] [address], [place] [address] Dec, [facility] [address] [id number] [address] [place] [address], [place] [address] Dec, [facility] [address] [id number] [address] [place] [address], [place] [address] Nov, [facility] [address] [id number] [address] [place] [address], [place] [address] Nov, [facility] [address] [id number] [address] [place] [address], [place] [address] Oct, [facility] [address] [id number] [address] [place] [address], [place] [address] Oct, [facility] [address] [id number] [address] [place] [address], [place] [address] Oct, [facility] [address] [id number] [address] [place] [address], [place] [address] Oct, [facility] [address] [id number] [address] [place] [address], [place] [address] Sep, [facility] [address] [id number] [address] [place] [address], [place] [address] Sep, [facility] [address] [id number] [address] [place] [address], [place] [address] Sep, [facility] [address] [id number] [address] [place] [address], [place] [address] Sep, [facility] [address] [id number] [address] [place] [address], [place] [address] Aug, [facility] [address] [id number] [address] [place] [address], [place] [address] Aug, [facility] [address] [id number] [address] [place] [address], [place] [address] Aug, [facility] [address] [id number] [address] [place] [address], [place] [address] Jul, [facility] [address] [id number] [address] [place] [address], [place] [address] Jul, [facility] [address] [id number] [address] [place] [address], [place] [address] Jun, [facility] [address] [id number] [address] [place] [address], [place] [address] Jun, [facility] [address] [id number] [address] [place] [address], [place] [address] May, [facility] [address] [id number] [address] [place] [address], [place] [address] May, [facility] [address] [id number] [address] [place] [address], [place] [address] Apr, [facility] [address] [id number] [address] [place] [address], [place] [address] March, [facility] [address] [id number] [address] [place] [address], [place] [address] March, [facility] [address] [id number] [address] [place] [address], [place] [address] Feb, [facility] [address] [id number] [address] [place] [address], [place] [address] Jan, [facility] [address] [id number] [address] [place] [address], [place] [address] Jan, [facility] [address] [id number] [address] [place] [address], [place] [address] Dec, [facility] [address] [id number] [address] [place] [address], [place] [address] Dec, [facility] [address] [id number] [address] [place] [address], [place] [address] Nov, [facility] [address] [id number] [address] [place] [address], [place] [address] Nov, [facility] [address] [id number] [address] [place] [address], [place] [address] Nov, [facility] [address] [id number] [address] [place] [address], [place] [address] Nov, [facility] [address] [id number] [address] [place] [address], [place] [address] Nov, [facility] [address] [id number] [address] [place] [address], [place] [address] Oct, [facility] [address] [id number] [address] [place] [address], [place] [address] Oct, [facility] [address] [id number] [address] [place] [address], [place] [address] Oct, [facility] [address] [id number] [address] [place] [address], [place] [address] Oct, [facility] [address] [id number] [address] [place] [address], [place] [address] Oct, [facility] [address] [id number] [address] [place] [address], [place] [address] 05 Oct, 2012 [facility] [address] [id number] [address] [place] [address], [place] [address] 05 Oct, 2012 [facility] [address] [id number] [address] [place] [address], [place] [address] Oct, [facility] [address] [id number] [address] [place] [address], [place] [address] Sep, [facility] [address] [id number] [address] [place] [address], [place] [address] Sep, [facility] [address] [id number] [address] [place] [address], [place] [address] Sep, [facility] [address] [id number] [address] [place] [address], [place] [address] Aug, [facility] [address] [id number] [address] [place] [address], [place] [address] Aug, [facility] [address] [id number] [address] [place] [address], [place] [address] Aug, [facility] [address] [id number] [address] [place] [address], [place] [address] Aug, [facility] [address] [id number] [address] [place] [address], [place] [address] Aug, [facility] [address] [id number] [address] [place] [address], [place] [address] Jul, [facility] [address] [id number] [address] [place] [address], [place] [address] 18 Jul, 2012 [facility] [address] [id number] [address] [place] [address], [place] [address] Jun, [facility] [address] [id number] [address] [place] [address], [place] [address] May, [facility] [address] [id number] [address] [place] [address], [place] [address] May, [facility] [address] [id number] [address] [place] [address], [place] [address] Apr, [facility] [address] [id number] [address] [place] [address], [place] [address] March, [facility] [address] [id number] [address] [place] [address], [place] [address] March, [facility] [address] [id number] [address] [place] [address], [place] [address] March, [facility] [address] [id number] [address] [place] [address], [place] [address] March, [facility] [address] [id number] [address] [place] [address], [place] [address] Feb, [facility] [address] [id number] [address] [place] [address], [place] [address] Feb, [facility] [address] [id number] [address] [place] [address], [place] [address] Jan, [facility] [address] [id number] [address] [place] [address], [place] [address] Dec, [facility] [address] [id number] [address] [place] [address], [place] [address] Dec, [facility] [address] [id number] [address] [place] [address], [place] [address] Dec, [facility] [address] [id number] [address] [place] [address], [place] [address] Nov, [facility] [address] [id number] [address] [place] [address], [place] [address] Nov, [facility] [address] [id number] [address] [place] [address], [place] [address] Nov, [facility] [address] [id number] [address] [place] [address], [place] [address] Oct, [facility] [address] [id number] [address] [place] [address], [place] [address] Sep, [facility] [address] [id number] [address] [place] [address] Aug, [facility] [address] [facility] [id number] [address] [place] [address] Aug, [facility] [address] [facility] [id number] [address] [place] [address] May, [facility] [address] [facility] [id number] [address] [place] [address] Sep, [facility] [address] [facility] [id number] [address] [place] [address] Sep, IMMUNIZATIONS No Known Immunizations SOCIAL HISTORY Never Assessed REASON FOR VISIT PLAN OF CARE VITAL SIGNS MEDICATIONS Unknown Medications RESULTS No Results PROCEDURES No Known procedures INSTRUCTIONS MEDICATIONS ADMINISTERED No Known Medications MEDICAL (GENERAL) HISTORY Type Description Date Medical History bipolar Medical History adhd Medical History anxiety Surgical History No Surgical history information
--- OUTSIDE RECORDS SUMMARY | 2020-03-18 15:28 | XMS REPORT ---
Author Author Jose Cruz Mercer Doctor Organization [facility] Address Unknown Phone Unavailable Care Team Providers Care Heading Repairer Name Role Phone Migration, Doctor Unavailable Unavailable PROBLEMS Type Condition ICD9-CM Code [id number] Code Onset Dates Condition S tatus SNOMED Code Problem 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 Ac tive 25449771 Problem Encounter for long-term (current) use of other medications V58.69 Active 175534446 Problem Bipolar disorder, unspecified 296.80 Active 16994770 Problem Bipolar I disorder, most recent episode (or current) mixed, moderate 296.62 Active 920805381 Problem Bipolar disorder F31.9 Active 137 84661 Problem Intellectual disability F79 Active 83414339 Problem Generalized anxiety disorder 300.02 A ctive 10990449 Problem Attention-deficit hyperactiv ity disorder, predominantly inattentive type F90.0 Active 00188554 Problem 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 314.00 Active 22638062 Problem Intermittent explosive disorder F63.81 Active 54376054 Problem Attention deficit hyperactivity disorder F90.9 Active 440204167 Problem Bipolar disorder, currently in remission, most recent episode unspecified F31.70 Active 58635983 Problem Moderate intellectual disability F71 Active 74328773 ALLERGIES No Information ENCOUNTERS Encounter Location Date Diagnosis [place] [id number] [address] [place] [address] Feb, Bipolar disorder F31.9 [facility] [address] [id number] [address] [place] [address] Feb, Bipolar disorder F31.9 ; Att ention-deficit hyperactivity disorder, predominantly inattentive type F90.0 and Moderate intellectual disability F71 [facility] [address] [id number] [address] [place] [address] Jan, Bipolar disorder F31.9 [facility] [address] [id number] [address] [place] [address] Jan, Bipolar disorder F31.9 [facility] [address] [id number] [address] [place] [address] Jan, Dental examination Z01.20 ; 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 status requiring routine preventive dental care K08.9 and Caries K02.9 [facility] [address] [id number] [address] [place] [address] Jan, [facility] [address] [id number] [address] [place] [address] Jan, Bipolar disorder F31.9 ; Mod erate intellectual disability F71 and Attention-deficit hyperactivity disorder, predominantly inattentive type F90.0 [facility] [address] [id number] [address] [place] [address] Dec, Bipolar disorder, currently in remission, most recent episode unspecified F31.70 [facility] [address] [id number] [address] [place] [address] Dec, Bipolar disorder, currently in remission, most recent episode unspecified F31.70 [facility] [address] [id number] [address] [place] [address] Dec, Bipolar disorder, currently in remission, most recent episode unspecified F31.70 [facility] [address] [id number] [address] [place] [address] Dec, [facility] [address] [id number] [address] [place] [address] Dec, Bipolar disorder, currently in remission, most recent episode unspecified F31.70 [facility] [address] [id number] [address] [place] [address] Nov, Bipolar disorder, currently in remission, most recent episode unspecified F31.70 [facility] [address] [id number] [address] [place] [address] Nov, [facility] [address] [id number] [address] [place] [address] Nov, [facility] [address] [id number] [address] [place] [address] Nov, Bipolar disorder, currently in remission, most recent episode unspecified F31.70 [facility] [address] [id number] [address] [place] [address] Nov, Bipolar disorder, currently in remission, most recent episode unspecified F31.70 [facility] [address] [id number] [address] [place] [address] Oct, High risk medication use Z79 .899 ; Bipolar disorder F31.9 ; Moderate intellectual disability F71 and Attention-deficit hyperactivity disorder, predominantly inattentive type F90.0 [facility] [address] [id number] [address] [place] [address] Oct, [facility] [address] [facility] [id number] [address] [place] [address] Sep, Bipolar disorder, currently in remission, most recent episode unspecified F31.70 [facility] [address] [id number] [address] [place] [address] [id number] Sep, 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 stat us requiring routine preventive dental care K08.9 and Arrested dental caries K02.3 [facility] [address] [facility] [id number] [address] [place] [address] Sep, Bipolar disorder, currently in remission, most recent episode unspecified F31.70 ; Moderate intellectual disability F71 and Attention-deficit hyperactivity disorder, predominantly inattentive type F90.0 [facility] [address] [id number] [address] [place] [address] Sep, Bipolar disorder, currently in remission, most recent episode unspecified F31.70 [facility] [address] [id number] [address] [place] [address] Aug, Bipolar disorder, currently in remission, most recent episode unspecified F31.70 [facility] [address] [id number] [address] [place] [address] Jul, Bipolar disorder, currently in remission, most recent episode unspecified F31.70 [facility] [address] [id number] [address] [place] [address] Jul, Bipolar disorder, currently in remission, most recent episode unspecified F31.70 [facility] [address] [id number] [address] [place] [address] Jun, [facility] [address] [id number] [address] [place] [address] Jun, Bipolar disorder, currently in remission, most recent episode unspecified F31.70 [facility] [address] [id number] [address] [place] [address] [id number] Jun, Dental examination Z01.20 an d Dental caries K02.9 [facility] [address] [id number] [address] [place] [address] May, Bipolar disorder, currently in remission, most recent episode unspecified F31.70 [facility] [address] [id number] [address] [place] [address] May, Bipolar disorder, currently in remission, most recent episode unspecified F31.70 [facility] [address] [id number] [address] [place] [address] May, Bipolar disorder, currently in remission, most recent episode unspecified F31.70 ; Moderate intellectual disability F71 and Attention-deficit hyperactivity disorder, predominantly inattentive type F90.0 [facility] [address] [id number] [address] [place] [address] Apr, Bipolar disorder, unspecifie d F31.9 [facility] [address] [id number] [address] [place] [address] Apr, [facility] [address] [id number] [address] [place] [address] Apr, [facility] [address] [id number] [address] [place] [address] Apr, [facility] [address] [id number] [address] [place] [address] March, [facility] [address] [id number] [address] [place] [address] March, Bipolar disorder, currently in remission, most recent episode unspecified F31.70 ; Moderate intellectual disability F71 and Attention-deficit hyperactivity disorder, predominantly inattentive type F90.0 [facility] [address] [id number] [address] [place] [address] Feb, [facility] [address] [id number] [address] [place] [address] [id number] Feb, Dental examination Z01.20 [facility] [address] [id number] [address] [place] [address] Jan, [facility] [address] [id number] [address] [place] [address] Jan, [facility] [address] [id number] [address] [place] [address] Dec, [facility] [address] [id number] [address] [place] [address] Nov, [facility] [address] [id number] [address] [place] [address] [id number] Nov, Dental examination Z01.20 [facility] [address] [id number] [address] [place] [address] [id number] Nov, Encounter for dental exam an d cleaning w/o abnormal findings Z01.20 [facility] [address] [id number] [address] [place] [address] Oct, [facility] [address] [id number] [address] [place] [address] Oct, Bipolar disorder, currently in remission, most recent episode unspecified F31.70 ; Moderate intellectual disability F71 and Attention-deficit hyperactivity disorder, predominantly inattentive type F90.0 [facility] [address] [id number] [address] [place] [address] Sep, [facility] [address] [id number] [address] [place] [address] Sep, [facility] [address] [id number] [address] [place] [address] Aug, [facility] [address] [id number] [address] [place] [address] Aug, Attention-deficit hyperactiv ity disorder, predominantly inattentive type F90.0 ; Moderate intellectual disability 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 and Bipolar disorder F31.9 [facility] [address] [id number] [address] [place] [address] [id number] 11 Jul, 2017 Dental examination Z01.20 an d Dental caries K02.9 [facility] [address] [id number] [address] [place] [address] Jul, [facility] [address] [facility] [id number] [address] [place] [address] Jun, Bipolar disorder F31.9 ; Att ention-deficit hyperactivity disorder, predominantly inattentive type F90.0 and Moderate intellectual disability F71 [facility] [address] [id number] [address] [place] [address] Jun, [facility] [address] [facility] [id number] [address] [place] [address] May, [facility] [address] [id number] [address] [place] [address] Apr, [facility] [address] [facility] [id number] [address] [place] [address] March, Intermittent explosive disor jocelyn F63.81 ; Attention deficit hyperactivity disorder F90.9 and Bipolar disorder F31.9 [facility] [address] [id number] [address] [place] [address] Feb, [facility] [address] [id number] [address] [place] [address] Jan, [facility] [address] [id number] [address] [place] [address] 13 Dec, 2016 Intermittent explosive disor jocelyn F63.81 ; Attention deficit hyperactivity disorder F90.9 and Bipolar disorder, currently in remission, most recent episode unspecified F31.70 [facility] [address] [facility] [id number] [address] [place] [address] 13 Dec, 2016 Encounter for immunization Z 23 [facility] [address] [facility] [id number] [address] [place] [address] 27 Nov, 2016 [facility] [address] [facility] [id number] [address] [place] [address] Oct, [facility] [address] [facility] [id number] [address] [place] [address] Oct, [facility] [address] [id number] [address] [place] [address] [id number] Oct, Dental examination Z01.20 [facility] [address] [facility] [id number] [address] [place] [address] Sep, [facility] [address] [facility] [id number] [address] [place] [address] Sep, [facility] [address] [facility] [id number] [address] [place] [address] Sep, Intermittent explosive disor jocelyn F63.81 ; Bipolar disorder F31.9 and Attention deficit hyperactivity disorder F90.9 [facility] [address] [facility] [id number] [address] [place] [address] Aug, [facility] [address] [facility] [id number] [address] [place] [address] Aug, [facility] [address] [facility] [id number] [address] [place] [address] Aug, [facility] [address] [facility] [id number] [address] [place] [address] Aug, Attention deficit hyperactiv ity disorder F90.9 [facility] [address] [facility] [id number] [address] [place] [address] 16 Jul, 2016 [facility] [address] [id number] [address] [place] [address] Jun, [facility] [address] [id number] [address] [place] [address] May, [facility] [address] [id number] [address] [place] [address] Apr, [facility] [address] [id number] [address] [place] [address] Apr, Bipolar disorder F31.9 ; Att ention deficit hyperactivity disorder F90.9 and Intermittent explosive disorder F63.81 [facility] [address] [id number] [address] [place] [address] March, [facility] [address] [id number] [address] [place] [address] Feb, [facility] [address] [id number] [address] [place] [address] Feb, [facility] [address] [id number] [address] [place] [address] Jan, [facility] [address] [facility] [id number] [address] [place] [address] Jan, [facility] [address] [id number] [address] [place] [address] Dec, [facility] [address] [id number] [address] [place] [address] Nov, [facility] [address] [id number] [address] [place] [address] Nov, [facility] [address] [facility] [id number] [address] [place] [address] Nov, Attention deficit hyperactiv ity disorder F90.9 ; Intermittent explosive disorder F63.81 and Bipolar disorder F31.9 [facility] [address] [id number] [address] [place] [address] Oct, [facility] [address] [id number] [address] [place] [address] Oct, [facility] [address] [id number] [address] [place] [address] Sep, [facility] [address] [id number] [address] [place] [address] Aug, [facility] [address] [id number] [address] [place] [address] Jul, [facility] [address] [id number] [address] [place] [address] Jul, [facility] [address] [facility] [id number] [address] [place] [address] Jul, Anxiety, generalized 300.02 ; Bipolar disorder, unspecified 296.80 ; 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.00 ; 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 and Impulse control disorder, unspecified 312.30 [facility] [address] [facility] [id number] [address] [place] [address] Jul, [facility] [address] [facility] [id number] [address] [place] [address] Jun, [facility] [address] [facility] [id number] [address] [place] [address] May, [facility] [address] [facility] [id number] [address] [place] [address] Apr, [facility] [address] [facility] [id number] [address] [place] [address] Apr, Bipolar disorder, unspecifie d 296.80 ; Generalized anxiety disorder 300.02 and 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.00 [facility] [address] [id number] [address] [place] [address] Apr, [facility] [address] [facility] [id number] [address] [place] [address] March, [facility] [address] [id number] [address] [place] [address], [place] [address] March, [facility] [address] [id number] [address] [place] [address], [place] [address] March, [facility] [address] [id number] [address] [place] [address], [place] [address] March, [facility] [address] [id number] [address] [place] [address], [place] [address] Feb, [facility] [address] [id number] [address] [place] [address], [place] [address] Feb, [facility] [address] [id number] [address] [place] [address], [place] [address] Jan, [facility] [address] [id number] [address] [place] [address], [place] [address] Jan, [facility] [address] [id number] [address] [place] [address], [place] [address] Jan, [facility] [address] [id number] [address] [place] [address], [place] [address] Jan, [facility] [address] [id number] [address] [place] [address], [place] [address] Jan, [facility] [address] [id number] [address] [place] [address], [place] [address] Dec, [facility] [address] [id number] [address] [place] [address], [place] [address] Dec, [facility] [address] [id number] [address] [place] [address], [place] [address] Nov, [facility] [address] [id number] [address] [place] [address], [place] [address] Nov, [facility] [address] [id number] [address] [place] [address], [place] [address] Nov, [facility] [address] [id number] [address] [place] [address], [place] [address] Oct, [facility] [address] [id number] [address] [place] [address], [place] [address] Oct, [facility] [address] [id number] [address] [place] [address], [place] [address] Oct, [facility] [address] [id number] [address] [place] [address], [place] [address] Oct, [facility] [address] [id number] [address] [place] [address], [place] [address] Oct, [facility] [address] [id number] [address] [place] [address], [place] [address] Oct, [facility] [address] [id number] [address] [place] [address], [place] [address] Sep, [facility] [address] [id number] [address] [place] [address], [place] [address] Sep, [facility] [address] [id number] [address] [place] [address], [place] [address] Sep, [facility] [address] [id number] [address] [place] [address], [place] [address] Aug, [facility] [address] [id number] [address] [place] [address], [place] [address] Aug, [facility] [address] [id number] [address] [place] [address], [place] [address] Jul, [facility] [address] [id number] [address] [place] [address], [place] [address] Jul, [facility] [address] [id number] [address] [place] [address], [place] [address] Jun, [facility] [address] [id number] [address] [place] [address], [place] [address] Jun, [facility] [address] [id number] [address] [place] [address], [place] [address] Jun, [facility] [address] [id number] [address] [place] [address], [place] [address] Jun, [facility] [address] [id number] [address] [place] [address], [place] [address] May, [facility] [address] [id number] [address] [place] [address], [place] [id number] May, [facility] [address] [id number] [address] [place] [address], [place] [address] May, [facility] [address] [id number] [address] [place] [address], [place] [address] Apr, [facility] [address] [id number] [address] [place] [address], [place] [address] Apr, [facility] [address] [id number] [address] [place] [address], [place] [address] Apr, [facility] [address] [id number] [address] [place] [address], [place] [address] Apr, [facility] [address] [id number] [address] [place] [address], [place] [id number] March, [facility] [address] [id number] [address] [place] [address], [place] [address] March, [facility] [address] [id number] [address] [place] [address], [place] [address] March, [facility] [address] [id number] [address] [place] [address], [place] [address] March, [facility] [address] [id number] [address] [place] [address], [place] [address] Feb, [facility] [address] [id number] [address] [place] [address], [place] [address] Feb, [facility] [address] [id number] [address] [place] [address], [place] [address] Jan, [facility] [address] [id number] [address] [place] [address], [place] [address] Jan, [facility] [address] [id number] [address] [place] [address], [place] [address] Jan, [facility] [address] [id number] [address] [place] [address], [place] [address] Jan, [facility] [address] [id number] [address] [place] [address], [place] [address] Jan, [facility] [address] [id number] [address] [place] [address], [place] [address] Jan, [facility] [address] [id number] [address] [place] [address], [place] [address] Jan, [facility] [address] [id number] [address] [place] [address], [place] [address] Jan, [facility] [address] [id number] [address] [place] [address], [place] [address] Dec, [facility] [address] [id number] [address] [place] [address], [place] [address] Dec, [facility] [address] [id number] [address] [place] [address], [place] [address] Dec, [facility] [address] [id number] [address] [place] [address], [place] [address] Dec, [facility] [address] [id number] [address] [place] [address], [place] [address] Nov, [facility] [address] [id number] [address] [place] [address], [place] [address] Nov, [facility] [address] [id number] [address] [place] [address], [place] [address] Oct, [facility] [address] [id number] [address] [place] [address], [place] [address] Oct, [facility] [address] [id number] [address] [place] [address], [place] [address] Oct, [facility] [address] [id number] [address] [place] [address], [place] [address] Oct, [facility] [address] [id number] [address] [place] [address], [place] [address] Sep, [facility] [address] [id number] [address] [place] [address], [place] [address] Sep, [facility] [address] [id number] [address] [place] [address], [place] [address] Sep, [facility] [address] [id number] [address] [place] [address], [place] [address] Sep, [facility] [address] [id number] [address] [place] [address], [place] [address] Aug, [facility] [address] [id number] [address] [place] [address], [place] [address] Aug, [facility] [address] [id number] [address] [place] [address], [place] [address] Aug, [facility] [address] [id number] [address] [place] [address], [place] [address] Jul, [facility] [address] [id number] [address] [place] [address], [place] [address] Jul, [facility] [address] [id number] [address] [place] [address], [place] [address] Jun, [facility] [address] [id number] [address] [place] [address], [place] [address] Jun, [facility] [address] [id number] [address] [place] [address], [place] [address] May, [facility] [address] [id number] [address] [place] [address], [place] [address] May, [facility] [address] [id number] [address] [place] [address], [place] [address] Apr, [facility] [address] [id number] [address] [place] [address], [place] [address] March, [facility] [address] [id number] [address] [place] [address], [place] [address] March, [facility] [address] [id number] [address] [place] [address], [place] [address] Feb, [facility] [address] [id number] [address] [place] [address], [place] [address] Jan, [facility] [address] [id number] [address] [place] [address], [place] [address] Jan, [facility] [address] [id number] [address] [place] [address], [place] [address] Dec, [facility] [address] [id number] [address] [place] [address], [place] [address] Dec, [facility] [address] [id number] [address] [place] [address], [place] [address] Nov, [facility] [address] [id number] [address] [place] [address], [place] [address] Nov, [facility] [address] [id number] [address] [place] [address], [place] [address] Nov, [facility] [address] [id number] [address] [place] [address], [place] [address] Nov, [facility] [address] [id number] [address] [place] [address], [place] [address] Nov, [facility] [address] [id number] [address] [place] [address], [place] [address] Oct, [facility] [address] [id number] [address] [place] [address], [place] [address] Oct, [facility] [address] [id number] [address] [place] [address], [place] [address] Oct, [facility] [address] [id number] [address] [place] [address], [place] [address] Oct, [facility] [address] [id number] [address] [place] [address], [place] [address] Oct, [facility] [address] [id number] [address] [place] [address], [place] [address] Oct, [facility] [address] [id number] [address] [place] [address], [place] [address] Oct, [facility] [address] [id number] [address] [place] [address], [place] [address] Oct, [facility] [address] [id number] [address] [place] [address], [place] [address] Sep, [facility] [address] [id number] [address] [place] [address], [place] [address] Sep, [facility] [address] [id number] [address] [place] [address], [place] [address] Sep, [facility] [address] [id number] [address] [place] [address], [place] [address] Aug, [facility] [address] [id number] [address] [place] [address], [place] [address] Aug, [facility] [address] [id number] [address] [place] [address], [place] [address] Aug, [facility] [address] [id number] [address] [place] [address], [place] [address] Aug, [facility] [address] [id number] [address] [place] [address], [place] [address] Aug, [facility] [address] [id number] [address] [place] [address], [place] [address] Jul, [facility] [address] [id number] [address] [place] [address], [place] [address] Jul, [facility] [address] [id number] [address] [place] [address], [place] [address] Jun, [facility] [address] [id number] [address] [place] [address], [place] [address] May, [facility] [address] [id number] [address] [place] [address], [place] [address] May, [facility] [address] [id number] [address] [place] [address], [place] [address] Apr, [facility] [address] [id number] [address] [place] [address], [place] [address] March, [facility] [address] [id number] [address] [place] [address], [place] [address] March, [facility] [address] [id number] [address] [place] [address], [place] [address] March, [facility] [address] [id number] [address] [place] [address], [place] [address] March, [facility] [address] [id number] [address] [place] [address], [place] [address] Feb, [facility] [address] [id number] [address] [place] [address], [place] [address] Feb, [facility] [address] [id number] [address] [place] [address], [place] [address] Jan, [facility] [address] [id number] [address] [place] [address], [place] [address] Dec, [facility] [address] [id number] [address] [place] [address], [place] [address] Dec, [facility] [address] [id number] [address] [place] [address], [place] [address] Dec, [facility] [address] [id number] [address] [place] [address], [place] [address] Nov, [facility] [address] [id number] [address] [place] [address], [place] [address] Nov, [facility] [address] [id number] [address] [place] [address], [place] [address] Nov, [facility] [address] [id number] [address] [place] [address] 14 Oct, 2011 [facility] [address] [facility] [id number] [address] [place] [address] Sep, [facility] [address] [facility] [id number] [address] [place] [address] Aug, [facility] [address] [facility] [id number] [address] [place] [address] Aug, [facility] [address] [facility] [id number] [address] [place] [id number] May, [facility] [address] [facility] [id number] [address] [place] [address] Sep, [facility] [address] [facility] [id number] [address] [place] [address] Sep, IMMUNIZATIONS No Known Immunizations SOCIAL HISTORY Never Assessed REASON FOR VISIT EMR-[facility] [place] PLAN OF CARE VITAL SIGNS MEDICATIONS Unknown Medications RESULTS No Results PROCEDURES No Known procedures INSTRUCTIONS MEDICATIONS ADMINISTERED No Known Medications MEDICAL (GENERAL) HISTORY Type Description Date Medical History bipolar Medical History adhd Medical History anxiety Surgical History No Surgical history information
--- OUTSIDE RECORDS SUMMARY | 2020-03-18 15:28 | XMS REPORT ---
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 Name Role Phone Migration, Doctor Unavailable Unavailable PROBLEMS Type Condition ICD9-CM Code HNA92-MP Code Onset Dates Condition S tatus SNOMED Code Problem 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 Ac tive 72676035 Problem Encounter for long-term (current) use of other medications V58.69 Active 641573898 Problem Bipolar disorder, unspecified 296.80 Active 76332887 Problem Bipolar I disorder, most recent episode (or current) mixed, moderate 296.62 Active 743603991 Problem Bipolar disorder F31.9 Active 137 14260 Problem Intellectual disability F79 Active 91959352 Problem Generalized anxiety disorder 300.02 A ctive 25136358 Problem Attention-deficit hyperactiv ity disorder, predominantly inattentive type F90.0 Active 79814995 Problem 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 314.00 Active 34473811 Problem Intermittent explosive disorder F63.81 Active 91267567 Problem Attention deficit hyperactivity disorder F90.9 Active 685244363 Problem Bipolar disorder, currently in remission, most recent episode unspecified F31.70 Active 66854361 Problem Moderate intellectual disability F71 Active [id number] ALLERGIES No Information ENCOUNTERS Encounter Location Date Diagnosis [facility] [place], [facility] [address] [facility] [id number] [address] [place] [phone] March, Bipolar disorder F31.9 [facility] [id number] [place] [phone] March, Caries K02.9 [facility] [place] [address] [facility] [id number] [address] [place] [phone] March, Bipolar disorder F31.9 [facility] [place] [address] [facility] [id number] [address] [place] [id number] March, Bipolar disorder F31.9 [facility] [place] [address] [facility] [id number] [address] [place] [id number] Feb, Bipolar disorder F31.9 [facility] [place] [address] [id number] [address] [place] [id number] Feb, Bipolar disorder F31.9 ; Att ention-deficit hyperactivity disorder, predominantly inattentive type F90.0 and Moderate intellectual disability F71 [facility] [place] [address] [id number] [address] [place] [id number] Jan, Bipolar disorder F31.9 [facility] [place] [address] [id number] [address] [place] [id number] Jan, Bipolar disorder F31.9 [facility] [place] [address] [id number] [address] [place] [id number] Jan, Dental examination Z01.20 ; 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 status requiring routine preventive dental care K08.9 and Caries K02.9 [facility] [place] [address] [id number] [address] [place] [id number] Jan, [facility] [place] [address] [id number] [address] [place] [id number] Jan, Bipolar disorder F31.9 ; Mod erate intellectual disability F71 and Attention-deficit hyperactivity disorder, predominantly inattentive type F90.0 [facility] [place] [address] [id number] [address] [place] [id number] Dec, Bipolar disorder, currently in remission, most recent episode unspecified F31.70 [facility] [place] [address] [id number] [address] [place] [id number] Dec, Bipolar disorder, currently in remission, most recent episode unspecified F31.70 [facility] [place] [address] [id number] [address] [place] [id number] Dec, Bipolar disorder, currently in remission, most recent episode unspecified F31.70 [facility] [place] [address] [id number] [address] [place] [id number] Dec, [facility] [place] [address] [id number] [address] [place] [id number] Dec, Bipolar disorder, currently in remission, most recent episode unspecified F31.70 [facility] [place] [address] [id number] [address] [place] [id number] Nov, Bipolar disorder, currently in remission, most recent episode unspecified F31.70 [facility] [place] [address] [id number] [address] [place] [id number] Nov, [facility] [place] [address] [id number] [address] [place] [id number] Nov, [facility] [place] [address] [id number] [address] [place] [phone] Nov, Bipolar disorder, currently in remission, most recent episode unspecified F31.70 [facility] [place] [address] [id number] [address] [place] [id number] Nov, Bipolar disorder, currently in remission, most recent episode unspecified F31.70 [facility] [place] [address] [id number] [address] [place] [phone] Oct, High risk medication use Z79 .899 ; Bipolar disorder F31.9 ; Moderate intellectual disability F71 and Attention-deficit hyperactivity disorder, predominantly inattentive type F90.0 [facility] [place] [address] [id number] [address] [place] [id number] Oct, [facility] [place] [address] [id number] [address] [place] [address] Sep, Bipolar disorder, currently in remission, most recent episode unspecified F31.70 [facility] [address] [id number] [address] [place] [address] [phone] Sep, 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 stat us requiring routine preventive dental care K08.9 and Arrested dental caries K02.3 [facility] [place] [address] [id number] [address] [place] [id number] Sep, Bipolar disorder, currently in remission, most recent episode unspecified F31.70 ; Moderate intellectual disability F71 and Attention-deficit hyperactivity disorder, predominantly inattentive type F90.0 [facility] [place] [address] [id number] [address] [place] [id number] Sep, Bipolar disorder, currently in remission, most recent episode unspecified F31.70 [facility] [place] [address] [id number] [address] [place] [id number] Aug, Bipolar disorder, currently in remission, most recent episode unspecified F31.70 [facility] [place] [address] [id number] [address] [place] [id number] Jul, Bipolar disorder, currently in remission, most recent episode unspecified F31.70 [facility] [place] [address] [id number] [address] [place] [phone] Jul, Bipolar disorder, currently in remission, most recent episode unspecified F31.70 [facility] [place] [address] [id number] [address] [place] [phone] Jun, [facility] [place] [address] [id number] [address] [place] [id number] Jun, Bipolar disorder, currently in remission, most recent episode unspecified F31.70 [facility] [address] [id number] [address] [place] [phone] Jun, Dental examination Z01.20 an d Dental caries K02.9 [facility] [place] [address] [id number] [address] [place] [phone] May, Bipolar disorder, currently in remission, most recent episode unspecified F31.70 [facility] [place] [address] [id number] [address] [place] [id number] May, Bipolar disorder, currently in remission, most recent episode unspecified F31.70 [facility] [place] [address] [id number] [address] [place] [id number] May, Bipolar disorder, currently in remission, most recent episode unspecified F31.70 ; Moderate intellectual disability F71 and Attention-deficit hyperactivity disorder, predominantly inattentive type F90.0 [facility] [place] [address] [id number] [address] [place] [id number] Apr, Bipolar disorder, unspecifie d F31.9 [facility] [place] [address] [id number] [address] [place] [phone] Apr, [facility] [place] [address] [id number] [address] [place] [id number] Apr, [facility] [place] [address] [id number] [address] [place] [id number] Apr, [facility] [place] [address] [id number] [address] [place] [id number] March, [facility] [place] [address] [id number] [address] [place] [phone] March, Bipolar disorder, currently in remission, most recent episode unspecified F31.70 ; Moderate intellectual disability F71 and Attention-deficit hyperactivity disorder, predominantly inattentive type F90.0 [facility] [place] [address] [id number] [address] [place] [phone] Feb, [facility] [address] [id number] [address] [place] [phone] Feb, Dental examination Z01.20 [facility] [place] [address] [id number] [address] [place] [id number] Jan, [facility] [place] [address] [id number] [address] [place] [phone] Jan, [facility] [place] [address] [id number] [address] [place] [phone] Dec, [facility] [place] [address] [id number] [address] [place] [id number] Nov, [facility] [address] [id number] [address] [place] [address] [phone] Nov, Encounter for dental exam an d cleaning w/o abnormal findings Z01.20 [facility] [address] [id number] [address] [place] [address] [id number] Nov, Dental examination Z01.20 [facility] [place] [address] [id number] [address] [place] [phone] Oct, [facility] [place] [address] [id number] [address] [place] [phone] Oct, Bipolar disorder, currently in remission, most recent episode unspecified F31.70 ; Moderate intellectual disability F71 and Attention-deficit hyperactivity disorder, predominantly inattentive type F90.0 [facility] [place] [address] [id number] [address] [place] [id number] Sep, [facility] [place] [address] [id number] [address] [place] [phone] Sep, [facility] [place] [address] [id number] [address] [place] [phone] Aug, [facility] [place] [address] [id number] [address] [place] [phone] Aug, Attention-deficit hyperactiv ity disorder, predominantly inattentive type F90.0 ; Moderate intellectual disability F71 and Bipolar disorder F31.9 [facility] [address] [id number] [address] [place] [address] [phone] Jul, Dental examination Z01.20 an d Dental caries K02.9 [facility] [place] [address] [id number] [address] [place] [phone] Jul, [facility] [place] [address] [id number] [address] [place] [phone] Jun, Bipolar disorder F31.9 ; Att ention-deficit hyperactivity disorder, predominantly inattentive type F90.0 and Moderate intellectual disability F71 [facility] [place] [address] [id number] [address] [place] [phone] Jun, [facility] [place] [address] [id number] [address] [place] [phone] May, [facility] [place] [address] [id number] [address] [place] [phone] Apr, [facility] [place] [address] [facility] [id number] [address] [place] [phone] March, Intermittent explosive disor jocelyn F63.81 ; Attention deficit hyperactivity disorder F90.9 and Bipolar disorder F31.9 [facility] [place] [address] [facility] [id number] [address] [place] [phone] Feb, [facility] [place] [address] [facility] [id number] [address] [place] [phone] Jan, [facility] [place] [address] [facility] [id number] [address] [place] [phone] Dec, Encounter for immunization Z 23 [facility] [place] [address] [facility] [id number] [address] [place] [phone] 13 Dec, 2016 Intermittent explosive disor jocelyn F63.81 ; Attention deficit hyperactivity disorder F90.9 and Bipolar disorder, currently in remission, most recent episode unspecified F31.70 [facility] [place] [address] [facility] [id number] [address] [place] [phone] Nov, [facility] [place] [address] [facility] [id number] [address] [place] [phone] Oct, [facility] [place] [address] [facility] [id number] [address] [place] [phone] Oct, [facility] [address] [id number] [address] [place] [address] [phone] Oct, Dental examination Z01.20 [facility] [place] [address] [id number] [address] [place] [id number] Sep, [facility] [place] [address] [facility] [id number] [address] [place] [phone] Sep, [facility] [place] [address] [facility] [id number] [address] [place] [phone] Sep, Intermittent explosive disor jocelyn F63.81 ; Bipolar disorder F31.9 and Attention deficit hyperactivity disorder F90.9 [facility] [place] [address] [id number] [address] [place] [phone] Aug, [facility] [place] [address] [id number] [address] [place] [id number] Aug, [facility] [place] [address] [id number] [address] [place] [phone] Aug, [facility] [place] [address] [id number] [address] [place] [phone] Aug, Attention deficit hyperactiv ity disorder F90.9 [facility] [place] [address] [id number] [address] [place] [phone] Jul, [facility] [place] [address] [id number] [address] [place] [id number] Jun, [facility] [place] [address] [id number] [address] [place] [phone] May, [facility] [place] [address] [id number] [address] [place] [id number] Apr, [facility] [place] [address] [id number] [address] [place] [phone] Apr, Bipolar disorder F31.9 ; Att ention deficit hyperactivity disorder F90.9 and Intermittent explosive disorder F63.81 [facility] [place] [address] [id number] [address] [place] [id number] March, [facility] [place] [address] [id number] [address] [place] [id number] Feb, [facility] [place] [address] [id number] [address] [place] [id number] Feb, [facility] [place] [address] [id number] [address] [place] [phone] Jan, [facility] [place] [address] [id number] [address] [place] [id number] Jan, [facility] [place] [address] [id number] [address] [place] [phone] Dec, [facility] [place] [address] [facility] [id number] [address] [place] [phone] Nov, [facility] [place] [address] [facility] [id number] [address] [place] [phone] Nov, [facility] [place] [address] [facility] [id number] [address] [place] [id number] Nov, Attention deficit hyperactiv ity disorder F90.9 ; Intermittent explosive disorder F63.81 and Bipolar disorder F31.9 [facility] [place] [address] [facility] [id number] [address] [place] [id number] Oct, [facility] [place] [address] [facility] [id number] [address] [place] [phone] Oct, [facility] [place] [address] [facility] [id number] [address] [place] [id number] Sep, [facility] [place] [address] [facility] [id number] [address] [place] [id number] Aug, [facility] [place] [address] [facility] [id number] [address] [place] [id number] Jul, [facility] [place] [address] [facility] [id number] [address] [place] [id number] Jul, [facility] [place] [address] [facility] [id number] [address] [place] [id number] Jul, Anxiety, generalized 300.02 ; Bipolar disorder, unspecified 296.80 ; 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.00 ; 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 and Impulse control disorder, unspecified 312.30 [facility] [place] [address] [facility] [id number] [address] [place] [phone] Jul, [facility] [place] [address] [facility] [id number] [address] [place] [phone] Jun, [facility] [place] [address] [facility] [id number] [address] [place] [id number] May, [facility] [place] [address] [id number] [address] [place] [phone] Apr, [facility] [place] [address] [id number] [address] [place] [phone] Apr, Bipolar disorder, unspecifie d 296.80 ; Generalized anxiety disorder 300.02 and 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.00 [facility] [place] [address] [id number] [address] [place] [id number] Apr, [facility] [place] [address] [id number] [address] [place] [id number] March, [facility] [place] [address] [id number] [address] [place] [id number] March, [facility] [place] [address] [id number] [address] [place] [id number] March, [facility] [place] [address] [id number] [address] [place] [id number] March, [facility] [place] [address] [id number] [address] [place] [id number] Feb, [facility] [place], [facility] [address] [id number] [address] [place] [id number] Feb, [facility] [place], [facility] [address] [id number] [address] [place] [id number] Jan, [facility] [place], [facility] [address] [id number] [address] [place] [id number] Jan, [facility] [place], [facility] [address] [id number] [address] [place] [id number] Jan, [facility] [place], [facility] [address] [id number] [address] [place] [id number] Jan, [facility] [place] [address] [id number] [address] [place] [address] Jan, [facility] [place] [address] [id number] [address] [place] [address] Dec, [facility] [address] [id number] [address] [place] [address], [place] [address] Dec, [facility] [address] [id number] [address] [place] [address], [place] [address] Nov, [facility] [address] [id number] [address] [place] [address], [place] [address] Nov, [facility] [address] [id number] [address] [place] [address], [place] [address] Nov, [facility] [address] [id number] [address] [place] [address], [place] [address] Oct, [facility] [address] [id number] [address] [place] [address], [place] [address] Oct, [facility] [address] [id number] [address] [place] [address], [place] [address] Oct, [facility] [address] [id number] [address] [place] [address], [place] [address] Oct, [facility] [address] [id number] [address] [place] [address], [place] [address] Oct, [facility] [address] [id number] [address] [place] [address], [place] [address] Oct, [facility] [address] [id number] [address] [place] [address], [place] [address] Sep, [facility] [address] [id number] [address] [place] [address] Sep, [facility] [address] [id number] [address] [place] [address], [place] [address] Sep, [facility] [address] [id number] [address] [place] [address], [place] [address] Aug, [facility] [address] [id number] [address] [place] [address], [place] [address] Aug, [facility] [address] [id number] [facility] [place] [address] 10 Jul, 2014 [facility] [address] [id number] [address] [place] [address], [place] [address] Jul, [facility] [address] [id number] [address] [place] [address], [place] [address] Jun, [facility] [address] [id number] [address] [place] [address], [place] [address] Jun, [facility] [address] [id number] [address] [place] [address], [place] [address] Jun, [facility] [address] [id number] [address] [place] [address], [place] [address] Jun, [facility] [address] [id number] [address] [place] [address], [place] [address] May, [facility] [address] [id number] [address] [place] [address], [place] [address] May, [facility] [address] [id number] [address] [place] [address], [place] [address] May, [facility] [address] [id number] [address] [place] [address], [place] [address] Apr, [facility] [address] [id number] [address] [place] [address], [place] [address] Apr, [facility] [address] [id number] [address] [place] [address], [place] [address] Apr, [facility] [address] [id number] [address] [place] [address], [place] [address] Apr, [facility] [address] [id number] [address] [place] [address], [place] [address] March, [facility] [address] [id number] [address] [place] [address], [place] [address] March, [facility] [address] [id number] [address] [place] [address], [place] [address] March, [facility] [address] [id number] [address] [place] [address], [place] [address] March, [facility] [address] [id number] [address] [place] [address], [place] [address] Feb, [facility] [address] [id number] [address] [place] [address], [place] [address] Feb, [facility] [address] [id number] [address] [place] [address], [place] [address] Jan, [facility] [address] [id number] [address] [place] [address], [place] [address] Jan, [facility] [address] [id number] [address] [place] [address], [place] [address] Jan, [facility] [address] [id number] [address] [place] [address], [place] [address] Jan, [facility] [address] [id number] [address] [place] [address], [place] [address] Jan, [facility] [address] [id number] [address] [place] [address], [place] [address] Jan, [facility] [address] [id number] [address] [place] [address], [place] [address] Jan, [facility] [address] [id number] [address] [place] [address], [place] [address] Jan, [facility] [address] [id number] [address] [place] [address], [place] [address] Dec, [facility] [address] [id number] [address] [place] [address], [place] [address] Dec, [facility] [address] [id number] [address] [place] [address], [place] [address] Dec, [facility] [address] [id number] [address] [place] [address], [place] [address] Dec, [facility] [address] [id number] [address] [place] [address], [place] [address] Nov, [facility] [address] [id number] [address] [place] [address], [place] [address] Nov, [facility] [address] [id number] [address] [place] [address], [place] [address] Oct, [facility] [address] [id number] [address] [place] [address], [place] [address] Oct, [facility] [address] [id number] [address] [place] [address], [place] [address] Oct, [facility] [address] [id number] [address] [place] [address], [place] [address] Oct, [facility] [address] [id number] [address] [place] [address], [place] [address] Sep, [facility] [address] [id number] [address] [place] [address], [place] [address] Sep, [facility] [address] [id number] [address] [place] [address], [place] [address] Sep, [facility] [address] [id number] [address] [place] [address], [place] [address] Sep, [facility] [address] [id number] [address] [place] [address], [place] [address] Aug, [facility] [address] [id number] [address] [place] [address], [place] [address] Aug, [facility] [address] [id number] [address] [place] [address], [place] [address] Aug, [facility] [address] [id number] [address] [place] [address], [place] [address] 12 Jul, 2013 [facility] [address] [id number] [address] [place] [address], [place] [address] Jul, [facility] [address] [id number] [address] [place] [address], [place] [address] Jun, [facility] [address] [id number] [address] [place] [address], [place] [address] Jun, [facility] [address] [id number] [address] [place] [address], [place] [address] May, [facility] [address] [id number] [address] [place] [address], [place] [address] May, [facility] [address] [id number] [address] [place] [address], [place] [address] Apr, [facility] [address] [id number] [address] [place] [address], [place] [address] March, [facility] [address] [id number] [address] [place] [address], [place] [address] March, [facility] [address] [id number] [address] [place] [address], [place] [address] Feb, [facility] [address] [id number] [address] [place] [address], [place] [address] Jan, [facility] [address] [id number] [address] [place] [address], [place] [address] Jan, [facility] [address] [id number] [address] [place] [address], [place] [address] Dec, [facility] [address] [id number] [address] [place] [address], [place] [address] Dec, [facility] [address] [id number] [address] [place] [address], [place] [address] Nov, [facility] [address] [id number] [address] [place] [address], [place] [address] Nov, [facility] [address] [id number] [address] [place] [address], [place] [address] Nov, [facility] [address] [id number] [address] [place] [address], [place] [address] Nov, [facility] [address] [id number] [address] [address] Nov, [facility] [address] [id number] [address] [place] [address], [place] [address] Oct, [facility] [address] [id number] [address] [place] [address], [place] [address] Oct, [facility] [address] [id number] [address] [place] [address], [place] [address] Oct, [facility] [address] [id number] [address] [place] [address], [place] [address] Oct, [facility] [address] [id number] [address] [place] [address], [place] [address] Oct, [facility] [address] [id number] [address] [place] [address], [place] [address] Oct, [facility] [address] [id number] [address] [place] [address], [place] [address] Oct, [facility] [address] [id number] [address] [place] [address], [place] [address] Oct, [facility] [address] [id number] [address] [place] [address], [place] [address] Sep, [facility] [address] [id number] [address] [place] [address], [place] [address] Sep, [facility] [address] [id number] [address] [place] [address], [place] [address] Sep, [facility] [address] [id number] [address] [place] [address], [place] [address] Aug, [facility] [address] [id number] [address] [place] [address], [place] [address] Aug, [facility] [address] [id number] [address] [place] [address], [place] [address] Aug, [facility] [address] [id number] [address] [place] [address], [place] [address] Aug, [facility] [address] [id number] [address] [place] [address], [place] [address] 08 Aug, 2012 [facility] [address] [id number] [address] [place] [address], [place] [address] Jul, [facility] [address] [id number] [address] [place] [address], [place] [address] Jul, [facility] [address] [id number] [address] [place] [address], [place] [address] Jun, [facility] [address] [id number] [address] [place] [address], [place] [address] May, [facility] [address] [id number] [address] [place] [address], [place] [address] May, [facility] [address] [id number] [address] [place] [address], [place] [address] Apr, [facility] [address] [id number] [address] [place] [address], [place] [address] March, [facility] [address] [id number] [address] [place] [address], [place] [address] March, [facility] [address] [id number] [address] [place] [address], [place] [address] March, [facility] [address] [id number] [address] [place] [address], [place] [address] March, [facility] [address] [id number] [address] [place] [address], [place] [address] Feb, [facility] [address] [id number] [address] [place] [address], [place] [address] Feb, [facility] [address] [id number] [address] [place] [address], [place] [address] Jan, [facility] [address] [id number] [address] [place] [address], [place] [address] Dec, [facility] [address] [id number] [address] [place] [address], [place] [address] 08 Dec, 2011 [facility] [place] [address] [id number] [address] [place] [address] Dec, [facility] [place] [address] [id number] [address] [place] [address] Nov, [facility] [place] [address] [id number] [address] [place] [address] Nov, [facility] [place] [address] [id number] [address] [place] [address] Nov, [facility] [place] [address] [id number] [address] [place] [address] Oct, [facility] [place] [address] [id number] [address] [place] [address] Sep, [facility] [place] [address] [id number] [address] [place] [address] Aug, [facility] [place] [address] [id number] [address] [place] [address] Aug, [facility] [place] [address] [id number] [address] [place] [address] May, [facility] [place] [address] [id number] [address] [place] [address] Sep, [facility] [place] [address] [id number] [address] [place] [address] Sep, IMMUNIZATIONS No Known Immunizations SOCIAL HISTORY Never Assessed REASON FOR VISIT [facility] PLAN OF CARE VITAL SIGNS MEDICATIONS Unknown Medications RESULTS No Results PROCEDURES No Known procedures INSTRUCTIONS MEDICATIONS ADMINISTERED No Known Medications MEDICAL (GENERAL) HISTORY Type Description Date Medical History bipolar Medical History adhd Medical History anxiety Surgical History No Surgical history information
--- OUTSIDE RECORDS SUMMARY | 2020-03-18 15:28 | XMS REPORT ---
Author Author Jose Cruz Mercer Doctor Organization [facility] Address Unknown Phone Unavailable Care Team Providers Care Deputy K 9 Name Role Phone Migration, Doctor Unavailable Unavailable PROBLEMS Type Condition ICD9-CM Code [id number] Code Onset Dates Condition S tatus SNOMED Code Problem 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 Ac tive 98226679 Problem Encounter for long-term (current) use of other medications V58.69 Active 477530442 Problem Bipolar disorder, unspecified 296.80 Active 90796570 Problem Bipolar I disorder, most recent episode (or current) mixed, moderate 296.62 Active 838263127 Problem Bipolar disorder F31.9 Active 137 51623 Problem Intellectual disability F79 Active 47304119 Problem Generalized anxiety disorder 300.02 A ctive 91267647 Problem Attention-deficit hyperactiv ity disorder, predominantly inattentive type F90.0 Active 13826812 Problem 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 314.00 Active 36862959 Problem Intermittent explosive disorder F63.81 Active 19132129 Problem Attention deficit hyperactivity disorder F90.9 Active 171519091 Problem Bipolar disorder, currently in remission, most recent episode unspecified F31.70 Active 85057547 Problem Moderate intellectual disability F71 Active 92271752 ALLERGIES No Information ENCOUNTERS Encounter Location Date Diagnosis [facility] [address] [facility] [id number] [address] [place] [address] May, [facility] [address] [facility] [id number] [address] [place] [address] May, OUTRE[facility] [id number] [place] [address] May, [facility] [address] [facility] [id number] [address] [place] [address] May, [facility] [address] [facility] [id number] [address] [place] [address] Apr, Bipolar disorder F31.9 [facility] [address] [id number] [address] [place] [address] Apr, Bipolar disorder F31.9 and H igh risk medication use Z79.899 [facility] [address] [id number] [address] [place] [address] March, Bipolar disorder F31.9 and H igh risk medication use Z79.899 [facility] [address] [id number] [address] [place] [address] March, Bipolar disorder F31.[address] [id number] [place] [address] March, Caries K02.9 [facility] [address] [id number] [address] [place] [address] March, Bipolar disorder F31.9 [facility] [address] [id number] [address] [place] [address] March, Bipolar disorder F31.9 [facility] [address] [id number] [address] [place] [address] Feb, Bipolar disorder F31.9 [facility] [address] [id number] [address] [place] [address] Feb, Bipolar disorder F31.9 ; Att ention-deficit hyperactivity disorder, predominantly inattentive type F90.0 and Moderate intellectual disability 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 [facility] [address] [id number] [address] [place] [address] Jan, Bipolar disorder F31.9 [facility] [address] [id number] [address] [place] [address] Jan, Bipolar disorder F31.9 [facility] [address] [id number] [address] [place] [address] Jan, Dental examination Z01.20 ; 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 status requiring routine preventive dental care K08.9 and Caries K02.9 [facility] [address] [id number] [address] [place] [address] Jan, [facility] [address] [id number] [address] [place] [address] Jan, Bipolar disorder F31.9 ; Mod erate intellectual disability F71 and Attention-deficit hyperactivity disorder, predominantly inattentive type F90.0 [facility] [address] [id number] [address] [place] [address] Dec, Bipolar disorder, currently in remission, most recent episode unspecified F31.70 [facility] [address] [id number] [address] [place] [address] Dec, Bipolar disorder, currently in remission, most recent episode unspecified F31.70 [facility] [address] [id number] [address] [place] [address] Dec, Bipolar disorder, currently in remission, most recent episode unspecified F31.70 [facility] [address] [id number] [address] [place] [address] Dec, [facility] [address] [id number] [address] [place] [address] Dec, Bipolar disorder, currently in remission, most recent episode unspecified F31.70 [facility] [address] [id number] [address] [place] [address] Nov, Bipolar disorder, currently in remission, most recent episode unspecified F31.70 [facility] [address] [id number] [address] [place] [address] Nov, [facility] [address] [id number] [address] [place] [address] Nov, [facility] [address] [id number] [address] [place] [id number] Nov, Bipolar disorder, currently in remission, most recent episode unspecified F31.70 [facility] [address] [id number] [address] [place] [address] Nov, Bipolar disorder, currently in remission, most recent episode unspecified F31.70 [facility] [address] [id number] [address] [place] [address] Oct, High risk medication use Z79 .899 ; Bipolar disorder F31.9 ; Moderate intellectual disability F71 and Attention-deficit hyperactivity disorder, predominantly inattentive type F90.0 [facility] [address] [id number] [address] [place] [address] Oct, [facility] [address] [id number] [address] [place] [address] Sep, Bipolar disorder, currently in remission, most recent episode unspecified F31.70 [facility] [address] [id number] [address] [place] [id number] Sep, 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 stat us requiring routine preventive dental care K08.9 and Arrested dental caries K02.3 [facility] [address] [id number] [address] [place] [address] Sep, Bipolar disorder, currently in remission, most recent episode unspecified F31.70 ; Moderate intellectual disability F71 and Attention-deficit hyperactivity disorder, predominantly inattentive type F90.0 [facility] [address] [id number] [address] [place] [address] Sep, Bipolar disorder, currently in remission, most recent episode unspecified F31.70 [facility] [address] [id number] [address] [place] [address] Aug, Bipolar disorder, currently in remission, most recent episode unspecified F31.70 [facility] [address] [id number] [address] [place] [id number] 13 Jul, 2018 Bipolar disorder, currently in remission, most recent episode unspecified F31.70 [facility] [address] [id number] [address] [place] [address] Jul, Bipolar disorder, currently in remission, most recent episode unspecified F31.70 [facility] [address] [id number] [address] [place] [address] Jun, [facility] [address] [id number] [address] [place] [address] Jun, Bipolar disorder, currently in remission, most recent episode unspecified F31.70 [facility] [address] [id number] [address] [place] [id number] Jun, Dental examination Z01.20 an d Dental caries K02.9 [facility] [address] [id number] [address] [place] [address] May, Bipolar disorder, currently in remission, most recent episode unspecified F31.70 [facility] [address] [id number] [address] [place] [address] May, Bipolar disorder, currently in remission, most recent episode unspecified F31.70 [facility] [address] [id number] [address] [place] [address] May, Bipolar disorder, currently in remission, most recent episode unspecified F31.70 ; Moderate intellectual disability F71 and Attention-deficit hyperactivity disorder, predominantly inattentive type F90.0 [facility] [address] [id number] [address] [place] [address] Apr, Bipolar disorder, unspecifie d F31.9 [facility] [address] [id number] [address] [place] [address] Apr, [facility] [address] [id number] [address] [place] [address] Apr, [facility] [address] [id number] [address] [place] [address] Apr, [facility] [address] [id number] [address] [place] [address] March, [facility] [address] [id number] [address] [place] [address] March, Bipolar disorder, currently in remission, most recent episode unspecified F31.70 ; Moderate intellectual disability F71 and Attention-deficit hyperactivity disorder, predominantly inattentive type F90.0 [facility] [address] [id number] [address] [place] [address] Feb, [facility] [address] [id number] [address] [place] [id number] Feb, Dental examination Z01.20 [facility] [address] [id number] [address] [place] [address] Jan, [facility] [address] [id number] [address] [place] [address] Jan, [facility] [address] [id number] [address] [place] [address] Dec, [facility] [address] [id number] [address] [place] [address] Nov, [facility] [address] [id number] [address] [place] [address] [id number] Nov, Dental examination Z01.20 [facility] [address] [id number] [address] [place] [id number] Nov, Encounter for dental exam an d cleaning w/o abnormal findings Z01.20 [facility] [address] [id number] [address] [place] [address] Oct, [facility] [address] [id number] [address] [place] [address] Oct, Bipolar disorder, currently in remission, most recent episode unspecified F31.70 ; Moderate intellectual disability F71 and Attention-deficit hyperactivity disorder, predominantly inattentive type F90.0 [facility] [address] [id number] [address] [place] [address] Sep, [facility] [address] [id number] [address] [place] [address] Sep, [facility] [address] [id number] [address] [place] [address] Aug, [facility] [address] [id number] [address] [place] [address] Aug, Attention-deficit hyperactiv ity disorder, predominantly inattentive type F90.0 ; Moderate intellectual disability F71 and Bipolar disorder F31.9 [facility] [address] [id number] [address] [place] [address] [id number] Jul, 2017 Dental examination Z01.20 an d Dental caries K02.9 [facility] [address] [facility] [id number] [address] [place] [id number] 05 Jul, 2017 [facility] [address] [facility] [id number] [address] [place] [address] Jun, Bipolar disorder F31.9 ; Att ention-deficit hyperactivity disorder, predominantly inattentive type F90.0 and Moderate intellectual disability 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 [facility] [address] [facility] [id number] [address] [place] [address] Jun, [facility] [address] [facility] [id number] [address] [place] [address] May, [facility] [address] [facility] [id number] [address] [place] [address] Apr, [facility] [address] [place] [id number] [address] [place] [address] March, Intermittent explosive disor jocelyn F63.81 ; Attention deficit hyperactivity disorder F90.9 and Bipolar disorder F31.9 [facility] [address] [facility] [id number] [address] [place] [address] Feb, [facility] [address] [facility] [id number] [address] [place] [address] Jan, [facility] [address] [facility] [id number] [address] [place] [address] 13 Dec, 2016 Encounter for immunization Z 23 [facility] [address] [facility] [id number] [address] [place] [address] 13 Dec, 2016 Intermittent explosive disor jocelyn F63.81 ; Attention deficit hyperactivity disorder F90.9 and Bipolar disorder, currently in remission, most recent episode unspecified F31.70 [facility] [address] [id number] [address] [place] [address] Nov, [facility] [address] [id number] [address] [place] [address] Oct, [facility] [address] [id number] [address] [place] [address] Oct, [facility] [address] [id number] [address] [place] [id number] Oct, Dental examination Z01.20 [facility] [address] [id number] [address] [place] [address] Sep, [facility] [address] [id number] [address] [place] [address] Sep, [facility] [address] [id number] [address] [place] [address] Sep, Intermittent explosive disor jocelyn F63.81 ; Bipolar disorder F31.9 and Attention deficit hyperactivity disorder F90.9 [facility] [address] [id number] [address] [place] [address] Aug, [facility] [address] [id number] [address] [place] [address] Aug, [facility] [address] [id number] [address] [place] [address] Aug, [facility] [address] [id number] [address] [place] [address] Aug, Attention deficit hyperactiv ity disorder F90.9 [facility] [address] [id number] [address] [place] [address] Jul, [facility] [address] [id number] [address] [place] [address] Jun, [facility] [address] [id number] [address] [place] [address] May, [facility] [address] [id number] [address] [place] [address] Apr, [facility] [address] [id number] [address] [place] [address] Apr, Bipolar disorder F31.9 ; Att ention deficit hyperactivity disorder F90.9 and Intermittent explosive disorder F63.81 [facility] [address] [id number] [address] [place] [address] March, [facility] [address] [id number] [address] [place] [address] Feb, [facility] [address] [id number] [address] [place] [address] Feb, [facility] [address] [id number] [address] [place] [address] Jan, [facility] [address] [id number] [address] [place] [address] Jan, [facility] [address] [id number] [address] [place] [address] Dec, [facility] [address] [id number] [address] [place] [address] Nov, [facility] [address] [id number] [address] [place] [address] Nov, [facility] [address] [facility] [id number] [address] [place] [address] Nov, Attention deficit hyperactiv ity disorder F90.9 ; Intermittent explosive disorder F63.81 and Bipolar disorder F31.9 [facility] [address] [id number] [address] [place] [address] Oct, [facility] [address] [id number] [address] [place] [address] Oct, [facility] [address] [facility] [id number] [address] [place] [address] Sep, [facility] [address] [id number] [address] [place] [address] Aug, [facility] [address] [id number] [address] [place] [address] Jul, [facility] [address] [id number] [address] [place] [address] Jul, [facility] [address] [id number] [address] [place] [address] Jul, Anxiety, generalized 300.02 ; Bipolar disorder, unspecified 296.80 ; 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.00 ; 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 and Impulse control disorder, unspecified 312.30 [facility] [address] [id number] [address] [place] [address] Jul, [facility] [address] [id number] [address] [place] [address] Jun, [facility] [address] [id number] [address] [place] [address] May, [facility] [address] [id number] [address] [place] [address] Apr, [facility] [address] [facility] [id number] [address] [place] [address] Apr, Bipolar disorder, unspecifie d 296.80 ; Generalized anxiety disorder 300.02 and 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.00 [facility] [address] [id number] [address] [place] [address] Apr, [facility] [address] [id number] [address] [place] [address] March, [facility] [address] [id number] [address] [place] [address] March, [facility] [address] [id number] [address] [place] [address] March, [facility] [address] [id number] [address] [place] [address] [place] [address] March, [facility] [address] [id number] [address] [place] [address], [place] [address] 14 Feb, 2015 [facility] [address] [id number] [address] [place] [address], [place] [address] Feb, [facility] [address] [id number] [address] [place] [address], [place] [address] Jan, [facility] [address] [id number] [address] [place] [address], [place] [address] Jan, [facility] [address] [id number] [address] [place] [address], [place] [address] Jan, [facility] [address] [id number] [address] [place] [address], [place] [address] Jan, [facility] [address] [id number] [address] [place] [address], [place] [address] Jan, [facility] [address] [id number] [address] [place] [address], [place] [address] Dec, [facility] [address] [id number] [address] [place] [address], [place] [address] Dec, [facility] [address] [id number] [address] [place] [address], [place] [address] Nov, [facility] [address] [id number] [address] [place] [address], [place] [address] Nov, [facility] [address] [id number] [address] [place] [address], [place] [address] Nov, [facility] [address] [id number] [address] [place] [address], [place] [address] Oct, [facility] [address] [id number] [address] [place] [address], [place] [address] Oct, [facility] [address] [id number] [address] [place] [address], [place] [address] Oct, [facility] [address] [id number] [address] [place] [address], [place] [address] Oct, [facility] [address] [id number] [address] [place] [address], [place] [address] Oct, [facility] [address] [id number] [address] [place] [address], [place] [address] Oct, [facility] [address] [id number] [address] [place] [address], [place] [address] Sep, [facility] [address] [id number] [address] [place] [address], [place] [address] Sep, [facility] [address] [id number] [address] [place] [address], [place] [address] Sep, [facility] [address] [id number] [address] [place] [address], [place] [address] Aug, [facility] [address] [id number] [address] [place] [address], [place] [address] Aug, [facility] [address] [id number] [address] [place] [address], [place] [address] Jul, [facility] [address] [id number] [address] [place] [address], [place] [address] Jul, [facility] [address] [id number] [address] [place] [address], [place] [address] Jun, [facility] [address] [id number] [address] [place] [address], [place] [address] Jun, [facility] [address] [id number] [address] [place] [address], [place] [address] Jun, [facility] [address] [id number] [address] [place] [address], [place] [address] Jun, [facility] [address] [id number] [address] [place] [address], [place] [address] May, [facility] [address] [id number] [address] [place] [address], [place] [address] May, [facility] [address] [id number] [address] [place] [address], [place] [address] May, [facility] [address] [id number] [address] [place] [address], [place] [address] Apr, [facility] [address] [id number] [address] [place] [address], [place] [address] Apr, [facility] [address] [id number] [address] [place] [address], [place] [address] Apr, [facility] [address] [id number] [address] [place] [address], [place] [address] Apr, [facility] [address] [id number] [address] [place] [address], [place] [address] March, [facility] [address] [id number] [address] [place] [address], [place] [address] March, [facility] [address] [id number] [address] [place] [address], [place] [address] March, [facility] [address] [id number] [address] [place] [address], [place] [address] March, [facility] [address] [id number] [address] [place] [address], [place] [address] Feb, [facility] [address] [id number] [address] [place] [address], [place] [address] Feb, [facility] [address] [id number] [address] [place] [address], [place] [address] Jan, [facility] [address] [id number] [address] [place] [address], [place] [address] Jan, [facility] [address] [id number] [address] [place] [address], [place] [address] Jan, [facility] [address] [id number] [address] [place] [address], [place] [address] Jan, [facility] [address] [id number] [facility] [address] Jan, [facility] [address] [id number] [address] [place] [address], [place] [address] Jan, [facility] [address] [id number] [address] [place] [address], [place] [address] Jan, [facility] [address] [id number] [address] [place] [address], [place] [address] Jan, [facility] [address] [id number] [address] [place] [address], [place] [address] Dec, [facility] [address] [id number] [address] [place] [address], [place] [address] Dec, [facility] [address] [id number] [address] [place] [address], [place] [address] Dec, [facility] [address] [id number] [address] [place] [address], [place] [address] Dec, [facility] [address] [id number] [address] [place] [address], [place] [address] Nov, [facility] [address] [id number] [address] [place] [address], [place] [address] Nov, [facility] [address] [id number] [address] [place] [address], [place] [address] Oct, [facility] [address] [id number] [address] [place] [address], [place] [address] Oct, [facility] [address] [id number] [address] [place] [address], [place] [address] Oct, [facility] [address] [id number] [address] [place] [address], [place] [address] Oct, [facility] [address] [id number] [address] [place] [address], [place] [address] Sep, [facility] [address] [id number] [address] [place] [address], [place] [address] Sep, [facility] [address] [id number] [address] [place] [address], [place] [address] Sep, [facility] [address] [id number] [address] [place] [address], [place] [address] Sep, [facility] [address] [id number] [address] [place] [address], [place] [address] Aug, [facility] [address] [id number] [address] [place] [address], [place] [address] Aug, [facility] [address] [id number] [address] [place] [address], [place] [address] Aug, [facility] [address] [id number] [address] [place] [address], [place] [address] Jul, [facility] [address] [id number] [address] [place] [address], [place] [address] Jul, [facility] [address] [id number] [address] [place] [address], [place] [address] Jun, [facility] [address] [id number] [address] [place] [address], [place] [address] Jun, [facility] [address] [id number] [address] [place] [address], [place] [address] May, [facility] [address] [id number] [address] [place] [address], [place] [address] May, [facility] [address] [id number] [address] [place] [address], [place] [address] Apr, [facility] [address] [id number] [address] [place] [address], [place] [address] March, [facility] [address] [id number] [address] [place] [address], [place] [address] March, [facility] [address] [id number] [address] [place] [address], [place] [address] Feb, [facility] [address] [id number] [address] [place] [address], [place] [address] Jan, [facility] [address] [id number] [address] [place] [address], [place] [address] Jan, [facility] [address] [id number] [address] [place] [address], [place] [address] Dec, [facility] [address] [id number] [address] [place] [address], [place] [address] Dec, [facility] [address] [id number] [address] [place] [address], [place] [address] Nov, [facility] [address] [id number] [address] [place] [address], [place] [address] Nov, [facility] [address] [id number] [address] [place] [address], [place] [address] Nov, [facility] [address] [id number] [address] [place] [address], [place] [address] Nov, [facility] [address] [id number] [address] [place] [address], [place] [address] Nov, [facility] [address] [id number] [address] [place] [address], [place] [address] Oct, [facility] [address] [id number] [address] [place] [address], [place] [address] 31 Oct, 2012 [facility] [address] [id number] [address] [place] [address], [place] [address] Oct, [facility] [address] [id number] [address] [place] [address], [place] [address] Oct, [facility] [address] [id number] [address] [place] [address], [place] [address] Oct, [facility] [address] [id number] [address] [place] [address], [place] [address] Oct, [facility] [address] [id number] [address] [place] [address], [place] [address] Oct, [facility] [address] [id number] [address] [place] [address], [place] [address] Oct, [facility] [address] [id number] [address] [place] [address], [place] [address] Sep, [facility] [address] [id number] [address] [place] [address], [place] [address] Sep, [facility] [address] [id number] [address] [place] [address], [place] [address] Sep, [facility] [address] [id number] [address] [place] [address], [place] [address] Aug, [facility] [address] [id number] [address] [place] [address], [place] [address] Aug, [facility] [address] [id number] [address] [place] [address], [place] [address] Aug, [facility] [address] [id number] [address] [place] [address], [place] [address] Aug, [facility] [address] [id number] [address] [place] [address], [place] [address] Aug, [facility] [address] [id number] [address] [place] [address], [place] [address] Jul, [facility] [address] [id number] [address] [place] [address], [place] [address] Jul, [facility] [address] [id number] [address] [place] [address], [place] [address] Jun, [facility] [address] [id number] [address] [place] [address], [place] [address] May, [facility] [address] [id number] [address] [place] [address], [place] [address] May, [facility] [address] [id number] [address] [place] [address], [place] [address] Apr, [facility] [address] [id number] [address] [place] [address], [place] [address] March, [facility] [address] [id number] [address] [place] [address], [place] [address] March, [facility] [address] [id number] [address] [place] [address], [place] [address] March, [facility] [address] [id number] [address] [place] [address], [place] [address] March, [facility] [address] [id number] [address] [place] [address], [place] [address] Feb, [facility] [address] [id number] [address] [place] [address], [place] [address] Feb, [facility] [address] [id number] [address] [place] [address], [place] [address] Jan, [facility] [address] [id number] [address] [place] [address], [place] [address] Dec, [facility] [address] [id number] [address] [place] [address], [place] [address] Dec, [facility] [address] [id number] [address] [place] [address], [place] [address] Dec, [facility] [address] [id number] [address] [place] [address], [place] [address] Nov, [facility] [address] [id number] [address] [place] [address], [place] [address] Nov, [facility] [address] [id number] [address] [place] [address], [place] [address] Nov, [facility] [address] [id number] [address] [place] [address], [place] [address] Oct, [facility] [address] [id number] [address] [place] [address], [place] [address] Sep, [facility] [address] [id number] [address] [place] [address], [place] [address] Aug, [facility] [address] [facility] [id number] [address] [place] [address] Aug, [facility] [address] [facility] [id number] [address] [place] [address] May, [facility] [address] [facility] [id number] [address] [place] [address] Sep, [facility] [address] [facility] [id number] [address] [place] [address] Sep, IMMUNIZATIONS No Known Immunizations SOCIAL HISTORY Never Assessed REASON FOR VISIT PLAN OF CARE VITAL SIGNS MEDICATIONS Unknown Medications RESULTS No Results PROCEDURES No Known procedures INSTRUCTIONS MEDICATIONS ADMINISTERED No Known Medications MEDICAL (GENERAL) HISTORY Type Description Date Medical History bipolar Medical History adhd Medical History anxiety Surgical History No Surgical history information
--- OUTSIDE RECORDS SUMMARY | 2020-03-18 15:28 | XMS REPORT ---
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 Name Role Phone BRODIE Bonilla Unavailable PROBLEMS Type Condition ICD9-CM Code [id number] Code Onset Dates Condition S tatus SNOMED Code Problem Bipolar disorder F31.9 Active 137 27441 Problem Intellectual disability F79 Active 78850356 Problem Attention-deficit hyperactiv ity disorder, predominantly inattentive type F90.0 Active 28615146 Problem Intermittent explosive disorder F63.81 Active 99045773 Problem Attention deficit hyperactivity disorder F90.9 Active 507345494 Problem Bipolar disorder, currently in remission, most recent episode unspecified F31.70 Active 61695164 Problem Moderate intellectual disability F71 Active [id number] ALLERGIES No Information ENCOUNTERS Encounter Location Date Diagnosis [facility] [address] [facility] [id number] [address] [place] [address] May, [facility] [address] [place] [id number] [address] [place] [address] May, OUTREACH [facility] [address] [facility] [id number] [place] [address] May, [facility] [address] [place] [id number] [address] [place] [address] May, Bipolar disorder F31.9 ; Att ention-deficit hyperactivity disorder, predominantly inattentive type F90.0 and Moderate intellectual disability F71 [facility] [address] [facility] [id number] [address] [place] [address] Apr, Bipolar disorder F31.9 [facility] [address] [place] [id number] [address] [place] [address] Apr, Bipolar disorder F31.9 and H igh risk medication use Z79.899 [facility] [address] [id number] [address] [place] [address] March, Bipolar disorder F31.9 and H igh risk medication use Z79.899 [facility] [address] [id number] [address] [place] [address] March, Bipolar disorder F31.9 [facility] [address] [id number] [address] March, Caries K02.9 [facility] [address] [id number] [address] [place] [address] March, Bipolar disorder F31.9 [facility] [address] [id number] [address] [place] [address] March, Bipolar disorder F31.9 [facility] [address] [id number] [address] [place] [address] Feb, Bipolar disorder F31.9 [facility] [address] [id number] [address] [place] [address] Feb, Bipolar disorder F31.9 ; Att ention-deficit hyperactivity disorder, predominantly inattentive type F90.0 and Moderate intellectual disability 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 [facility] [address] [id number] [address] [place] [address] Jan, Bipolar disorder F31.9 [facility] [address] [id number] [address] [place] [address] Jan, Bipolar disorder F31.9 [facility] [address] [id number] [address] [place] [address] Jan, Dental examination Z01.20 ; 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 status requiring routine preventive dental care K08.9 and Caries K02.9 [facility] [address] [id number] [address] [place] [address] Jan, [facility] [address] [facility] [id number] [address] [place] [address] Jan, Bipolar disorder F31.9 ; Mod erate intellectual disability F71 and Attention-deficit hyperactivity disorder, predominantly inattentive type F90.0 [facility] [address] [id number] [address] [place] [address] Dec, Bipolar disorder, currently in remission, most recent episode unspecified F31.70 [facility] [address] [id number] [address] [place] [address] Dec, Bipolar disorder, currently in remission, most recent episode unspecified F31.70 [facility] [address] [id number] [address] [place] [address] Dec, Bipolar disorder, currently in remission, most recent episode unspecified F31.70 [facility] [address] [id number] [address] [place] [address] Dec, [facility] [address] [id number] [address] [place] [address] Dec, Bipolar disorder, currently in remission, most recent episode unspecified F31.70 [facility] [address] [id number] [address] [place] [address] Nov, Bipolar disorder, currently in remission, most recent episode unspecified F31.70 [facility] [address] [id number] [address] [place] [address] Nov, [facility] [address] [id number] [address] [place] [address] Nov, [facility] [address] [id number] [address] [place] [address] Nov, Bipolar disorder, currently in remission, most recent episode unspecified F31.70 [facility] [address] [id number] [address] [place] [address] Nov, Bipolar disorder, currently in remission, most recent episode unspecified F31.70 [facility] [address] [id number] [address] [place] [address] Oct, High risk medication use Z79 .899 ; Bipolar disorder F31.9 ; Moderate intellectual disability 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3 [facility] [address] [id number] [address] [place] [address] Sep, Bipolar disorder, currently in remission, most recent episode unspecified F31.70 ; Moderate intellectual disability F71 and Attention-deficit hyperactivity disorder, predominantly inattentive type F90.0 [facility] [address] [id number] [address] [place] [address] Sep, Bipolar disorder, currently in remission, most recent episode unspecified F31.70 [facility] [address] [id number] [address] [place] [address] 15 Aug, 2018 Bipolar disorder, currently in remission, most recent episode unspecified F31.70 [facility] [address] [id number] [address] [place] [address] 13 Jul, 2018 Bipolar disorder, currently in remission, most recent episode unspecified F31.70 [facility] [address] [id number] [address] [place] [address] Jul, Bipolar disorder, currently in remission, most recent episode unspecified F31.70 [facility] [address] [id number] [address] [place] [address] 14 Jun, 2018 [facility] [address] [id number] [address] [place] [address] Jun, Bipolar disorder, currently in remission, most recent episode unspecified F31.70 [facility] [address] [id number] [address] [place] [id number] Jun, Dental examination Z01.20 an d Dental caries K02.9 [facility] [address] [id number] [address] [place] [address] May, Bipolar disorder, currently in remission, most recent episode unspecified F31.70 [facility] [address] [id number] [address] [place] [address] May, Bipolar disorder, currently in remission, most recent episode unspecified F31.70 [facility] [address] [id number] [address] [place] [address] May, Bipolar disorder, currently in remission, most recent episode unspecified F31.70 ; Moderate intellectual disability F71 and Attention-deficit hyperactivity disorder, predominantly inattentive type F90.0 [facility] [address] [id number] [address] [place] [address] Apr, Bipolar disorder, unspecifie d F31.9 [facility] [address] [id number] [address] [place] [address] Apr, [facility] [address] [id number] [address] [place] [address] Apr, [facility] [address] [id number] [address] [place] [address] Apr, [facility] [address] [id number] [address] [place] [address] March, [facility] [address] [id number] [address] [place] [address] March, Bipolar disorder, currently in remission, most recent episode unspecified F31.70 ; Moderate intellectual disability F71 and Attention-deficit hyperactivity disorder, predominantly inattentive type F90.0 [facility] [address] [id number] [address] [place] [address] Feb, [facility] [address] [id number] [address] [place] [id number] Feb, Dental examination Z01.20 [facility] [address] [id number] [address] [place] [address] Jan, [facility] [address] [id number] [address] [place] [address] Jan, [facility] [address] [id number] [address] [place] [address] Dec, [facility] [address] [id number] [address] [place] [address] Nov, [facility] [address] [id number] [address] [place] [address] [id number] Nov, Encounter for dental exam an d cleaning w/o abnormal findings Z01.20 [facility] [address] [id number] [address] [place] [id number] Nov, Dental examination Z01.20 [facility] [address] [id number] [address] [place] [address] Oct, [facility] [address] [id number] [address] [place] [address] Oct, Bipolar disorder, currently in remission, most recent episode unspecified F31.70 ; Moderate intellectual disability 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 and Attention-deficit hyperactivity disorder, predominantly inattentive type F90.0 [facility] [address] [id number] [address] [place] [address] Sep, [facility] [address] [id number] [address] [place] [address] Sep, [facility] [address] [id number] [address] [place] [address] Aug, [facility] [address] [id number] [address] [place] [address] Aug, Attention-deficit hyperactiv ity disorder, predominantly inattentive type F90.0 ; Moderate intellectual disability F71 and Bipolar disorder F31.9 [facility] [address] [facility] [id number] [address] [place] [address] [id number] 11 Jul, 2017 Dental examination Z01.20 an d Dental caries K02.9 [facility] [address] [place] [id number] [place] [address] 05 Jul, 2017 [facility] [address] [place] [id number] [address] [place] [address] Jun, Bipolar disorder F31.9 ; Att ention-deficit hyperactivity disorder, predominantly inattentive type F90.0 and Moderate intellectual disability F71 [facility] [address] [place] [id number] [address] [place] [address] Jun, [facility] [address] [address] May, [place] [address] [id number] [place] [address] Apr, [place] [address] [address] March, Intermittent explosive disor jocelyn F63.81 ; Attention deficit hyperactivity disorder F90.9 and Bipolar disorder F31.9 [place] [address] [place] [id number] [address] [place] [address] Feb, [place] [address] [place] [id number] [address] [place] [address] Jan, [facility] [address] [place] [id number] [address] [place] [address] 13 Dec, 2016 Intermittent explosive disor jocelyn F63.81 ; Attention deficit hyperactivity disorder F90.9 and Bipolar disorder, currently in remission, most recent episode unspecified F31.70 [facility] [address] [place] [id number] [address] [place] [address] 13 Dec, 2016 Encounter for immunization Z 23 [facility] [address] [place] [id number] [address] [place] [address] Nov, [facility] [address] [address] Oct, [facility] [address] [id number] [address] [place] [address] Oct, [facility] [address] [id number] [address] [place] [address] [id number] Oct, Dental examination Z01.20 [facility] [address] [id number] [address] [place] [address] Sep, [facility] [address] [id number] [address] [place] [address] Sep, [facility] [address] [facility] [id number] [address] [place] [address] Sep, Intermittent explosive disor jocelyn F63.81 ; Bipolar disorder F31.9 and Attention deficit hyperactivity disorder F90.9 [facility] [address] [id number] [address] [place] [address] Aug, [facility] [address] [id number] [address] [place] [address] Aug, [facility] [address] [facility] [id number] [address] [place] [address] Aug, [facility] [address] [facility] [id number] [address] [place] [address] Aug, Attention deficit hyperactiv ity disorder F90.9 [facility] [address] [facility] [id number] [address] [place] [address] Jul, [facility] [address] [id number] [address] [place] [id number] Jun, [facility] [address] [facility] [id number] [address] [place] [address] May, [facility] [address] [facility] [id number] [address] [place] [address] Apr, [facility] [address] [facility] [id number] [address] [place] [address] Apr, Bipolar disorder F31.9 ; Att ention deficit hyperactivity disorder F90.9 and Intermittent explosive disorder F63.81 [facility] [address] [id number] [address] [place] [address] March, [facility] [address] [id number] [address] [place] [address] Feb, [facility] [address] [id number] [address] [place] [address] Feb, [facility] [address] [id number] [address] [place] [address] Jan, [facility] [address] [id number] [address] [place] [address] Jan, [facility] [address] [id number] [address] [place] [address] Dec, [facility] [address] [id number] [address] [place] [address] Nov, [facility] [address] [id number] [address] [place] [address] Nov, [facility] [address] [facility] [id number] [address] [place] [address] Nov, Attention deficit hyperactiv ity disorder F90.9 ; Intermittent explosive disorder F63.81 and Bipolar disorder F31.9 [facility] [address] [id number] [address] [place] [address] Oct, [facility] [address] [id number] [address] [place] [address] Oct, [facility] [address] [id number] [address] [place] [address] Sep, [facility] [address] [id number] [address] [place] [address] Aug, [facility] [address] [id number] [address] [place] [address] Jul, [facility] [address] [id number] [address] [place] [address] Jul, [facility] [address] [facility] [id number] [address] [place] [address] Jul, Anxiety, generalized 300.02 ; Bipolar disorder, unspecified 296.80 ; 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.00 ; 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 and Impulse control disorder, unspecified 312.30 [facility] [address] [id number] [address] [place] [address] Jul, [facility] [address] [id number] [address] [place] [address] Jun, [facility] [address] [facility] [id number] [address] [place] [address] May, [facility] [address] [facility] [id number] [address] [place] [address] Apr, [facility] [address] [facility] [id number] [address] [place] [address] Apr, Bipolar disorder, unspecifie d 296.80 ; Generalized anxiety disorder 300.02 and 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.00 [facility] [address] [facility] [id number] [address] [place] [address] Apr, [facility] [address] [facility] [id number] [address] [place] [address] March, [facility] [address] [id number] [address] [place] [address] March, [facility] [address] [facility] [id number] [address] [place] [address] March, [facility] [address] [facility] [id number] [address] [place] [address] March, [facility] [address] [facility] [id number] [address] [place] [address] Feb, [facility] [address] [id number] [address] [place] [address], [place] [address] Feb, [facility] [address] [id number] [address] [place] [address], [place] [address] Jan, [facility] [address] [id number] [address] [place] [address], [place] [address] Jan, [facility] [address] [id number] [address] [place] [address], [place] [address] Jan, [facility] [address] [id number] [address] [place] [address], [place] [address] Jan, [facility] [address] [id number] [address] [place] [address], [place] [address] Jan, [facility] [address] [id number] [address] [place] [address], [place] [address] Dec, [facility] [address] [id number] [address] [place] [address], [place] [address] Dec, [facility] [address] [id number] [address] [place] [address], [place] [address] Nov, [facility] [address] [id number] [address] [place] [address], [place] [address] Nov, [facility] [address] [id number] [address] [place] [address], [place] [address] Nov, [facility] [address] [id number] [address] [place] [address], [place] [address] Oct, [facility] [address] [id number] [address] [place] [address], [place] [address] Oct, [facility] [address] [id number] [address] [place] [address], [place] [address] Oct, [facility] [address] [id number] [address] [place] [address], [place] [address] Oct, [facility] [address] [id number] [address] [place] [address], [place] [address] Oct, [facility] [address] [id number] [address] [place] [address], [place] [address] Oct, [facility] [address] [id number] [address] [place] [address], [place] [address] Sep, [facility] [address] [id number] [address] [place] [address], [place] [address] Sep, [facility] [address] [id number] [address] [place] [address], [place] [address] Sep, [facility] [address] [id number] [address] [place] [address], [place] [address] Aug, [facility] [address] [id number] [address] [place] [address], [place] [address] Aug, [facility] [address] [id number] [address] [place] [address], [place] [address] Jul, [facility] [address] [id number] [address] [place] [address], [place] [address] Jul, [facility] [address] [id number] [address] [place] [address], [place] [address] Jun, [facility] [address] [id number] [address] [place] [address], [place] [address] Jun, [facility] [address] [id number] [address] [place] [address], [place] [address] Jun, [facility] [address] [id number] [address] [place] [address], [place] [address] Jun, [facility] [address] [id number] [address] [place] [address], [place] [address] May, [facility] [address] [id number] [address] [place] [address], [place] [address] May, [facility] [address] [id number] [address] [place] [address], [place] [address] May, [facility] [address] [id number] [facility] [place] [address] 17 Apr, 2014 [facility] [address] [id number] [facility] [place] [address] Apr, [facility] [address] [id number] [facility] [place] [address] Apr, [facility] [address] [id number] [address] [place] [address], [place] [address] Apr, [facility] [address] [id number] [facility] [place] [address] March, [facility] [address] [id number] [address] [place] [address], [place] [address] March, [facility] [address] [id number] [address] [place] [address], [place] [address] March, [facility] [address] [id number] [address] [place] [address], [place] [address] March, [facility] [address] [id number] [address] [place] [address], [place] [address] Feb, [facility] [address] [id number] [address] [place] [address], [place] [address] Feb, [facility] [address] [id number] [address] [place] [address], [place] [address] Jan, [facility] [address] [id number] [address] [place] [address], [place] [address] Jan, [facility] [address] [id number] [address] [place] [address], [place] [address] Jan, [facility] [facility] [address] [id number] [address] [place] [address], [place] [address] Jan, [facility] [address] [id number] [address] [place] [address], [place] [address] Jan, [facility] [address] [id number] [address] [place] [address], [place] [address] Jan, [facility] [address] [id number] [facility] [place] [address] Jan, [facility] [address] [id number] [address] [place] [address], [place] [address] Jan, [facility] [address] [id number] [address] [place] [address], [place] [address] Dec, [facility] [address] [id number] [address] [place] [address], [place] [address] Dec, [facility] [address] [id number] [address] [place] [address], [place] [address] Dec, [facility] [address] [id number] [address] [place] [address], [place] [address] Dec, [facility] [address] [id number] [address] [place] [address], [place] [address] Nov, [facility] [address] [id number] [address] [place] [address], [place] [address] Nov, [facility] [address] [id number] [address] [place] [address], [place] [address] Oct, [facility] [address] [id number] [address] [place] [address], [place] [address] Oct, [facility] [address] [id number] [address] [place] [address], [place] [address] Oct, [facility] [address] [id number] [address] [place] [address], [place] [address] Oct, [facility] [address] [id number] [address] [place] [address], [place] [address] Sep, [facility] [address] [id number] [address] [place] [address], [place] [address] Sep, [facility] [address] [id number] [address] [place] [address], [place] [address] Sep, [facility] [address] [id number] [address] [place] [address], [place] [address] 07 Sep, 2013 [facility] [address] [id number] [address] [place] [address], [place] [address] 10 Aug, 2013 [facility] [address] [id number] [address] [place] [address], [place] [address] 10 Aug, 2013 [facility] [address] [id number] [address] [place] [address], [place] [address] 07 Aug, 2013 [facility] [address] [id number] [address] [place] [address], [place] [address] Jul, [facility] [address] [id number] [address] [place] [address], [place] [address] Jul, [facility] [address] [id number] [address] [place] [address], [place] [address] Jun, [facility] [address] [id number] [address] [place] [address], [place] [address] Jun, [facility] [address] [id number] [address] [place] [address], [place] [address] 16 May, 2013 [facility] [address] [id number] [address] [place] [address], [place] [address] May, [facility] [address] [id number] [address] [place] [address], [place] [address] Apr, [facility] [address] [id number] [address] [place] [address], [place] [address] March, [facility] [address] [id number] [address] [place] [address], [place] [address] March, [facility] [address] [id number] [address] [place] [address], [place] [address] Feb, [facility] [address] [id number] [address] [place] [address], [place] [address] Jan, [facility] [address] [id number] [address] [place] [address], [place] [address] Jan, [facility] [address] [id number] [address] [place] [address], [place] [address] Dec, [facility] [address] [id number] [address] [place] [address], [place] [address] Dec, [facility] [address] [id number] [address] [place] [address], [place] [address] Nov, [facility] [address] [id number] [address] [place] [address], [place] [address] Nov, [facility] [address] [id number] [address] [place] [address], [place] [address] Nov, [facility] [address] [id number] [address] [place] [address], [place] [address] Nov, [facility] [address] [id number] [address] [place] [address], [place] [address] Nov, [facility] [address] [id number] [address] [place] [address], [place] [address] Oct, [facility] [address] [id number] [address] [place] [address], [place] [address] Oct, [facility] [address] [id number] [address] [place] [address], [place] [address] Oct, [facility] [address] [id number] [address] [place] [address], [place] [address] Oct, [facility] [address] [id number] [address] [place] [address], [place] [address] Oct, [facility] [address] [id number] [address] [place] [address], [place] [address] Oct, [facility] [address] [id number] [address] [place] [address], [place] [address] Oct, [facility] [address] [id number] [address] [place] [address], [place] [address] Oct, [facility] [address] [id number] [address] [place] [address], [place] [address] 07 Sep, 2012 [facility] [address] [id number] [address] [place] [address], [place] [address] Sep, [facility] [address] [id number] [address] [place] [address], [place] [address] Sep, [facility] [address] [id number] [address] [place] [address], [place] [address] Aug, [facility] [address] [id number] [address] [place] [address], [place] [address] 17 Aug, 2012 [facility] [address] [id number] [address] [place] [address], [place] [address] Aug, [facility] [address] [id number] [address] [place] [address], [place] [address] Aug, [facility] [address] [id number] [address] [place] [address], [place] [address] Aug, [facility] [address] [id number] [address] [place] [address], [place] [address] Jul, [facility] [address] [id number] [address] [place] [address], [place] [address] Jul, [facility] [address] [id number] [address] [place] [address], [place] [address] Jun, [facility] [address] [id number] [address] [place] [address], [place] [address] May, [facility] [address] [id number] [address] [place] [address], [place] [address] May, [facility] [address] [id number] [address] [place] [address], [place] [address] Apr, [facility] [address] [id number] [address] [place] [address], [place] [address] March, [facility] [address] [id number] [address] [place] [address], [place] [address] March, [facility] [address] [id number] [address] [place] [address], [place] [address] March, [facility] [address] [id number] [address] [place] [address], [place] [address] March, [facility] [address] [id number] [address] [place] [address], [place] [address] Feb, [facility] [address] [id number] [address] [place] [address], [place] [address] Feb, [facility] [address] [id number] [address] [place] [address], [place] [address] Jan, [facility] [address] [id number] [address] [place] [address], [place] [address] Dec, [facility] [address] [id number] [address] [place] [address], [place] [address] Dec, [facility] [address] [id number] [address] [place] [address], [place] [address] Dec, [facility] [address] [id number] [address] [place] [address], [place] [address] Nov, [facility] [address] [id number] [address] [place] [address], [place] [address] Nov, [facility] [address] [id number] [address] [place] [address], [place] [address] Nov, [facility] [address] [id number] [address] [place] [address], [place] [address] Oct, [facility] [address] [id number] [address] [place] [address], [place] [address] Sep, [facility] [address] [id number] [address] [place] [address], [place] [address] Aug, [facility] [address] [id number] [address] [place] [address], [place] [address] Aug, [facility] [address] [id number] [address] [place] [address], [place] [address] May, [facility] [address] [facility] [id number] [address] [address] Sep, [facility] [address] [facility] [id number] [address] [place] [address] Sep, IMMUNIZATIONS No Known Immunizations SOCIAL HISTORY Never Assessed REASON FOR VISIT PLAN OF CARE VITAL SIGNS Height 74.5 in 2015-02-05 Weight 254.25 lbs 2015-02-05 Temperature 97.6 degrees Fahrenheit 2015-02-05 Heart Rate 82 bpm 2015-02-05 Respiratory Rate 24 2015-02-05 Blood pressure systolic 104 mmHg 2015-02-05 Blood pressure diastolic 80 mmHg 2015-02-05 MEDICATIONS Unknown Medications RESULTS No Results PROCEDURES No Known procedures INSTRUCTIONS MEDICATIONS ADMINISTERED No Known Medications MEDICAL (GENERAL) HISTORY Type Description Date Medical History bipolar Medical History adhd Medical History anxiety Surgical History No Surgical history information
--- OUTSIDE RECORDS SUMMARY | 2020-03-18 15:28 | XMS REPORT ---
Author Author Jose Cruz Bonilla Organization [facility] Address Unknown Care Team Providers Care Engineering Team Supervisor Name Role Phone BRODIE Bonilla Unavailable PROBLEMS Type Condition ICD9-CM Code [id number] Code Onset Dates Condition S tatus SNOMED Code Problem 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 Ac tive 12655382 Problem Encounter for long-term (current) use of other medications V58.69 Active 436177299 Problem Bipolar disorder, unspecified 296.80 Active 32250034 Problem Bipolar I disorder, most recent episode (or current) mixed, moderate 296.62 Active 028842654 Problem Bipolar disorder F31.9 Active 137 31618 Problem Intellectual disability F79 Active 00329405 Problem Generalized anxiety disorder 300.02 A ctive 22797019 Problem Attention-deficit hyperactiv ity disorder, predominantly inattentive type F90.0 Active 02822355 Problem 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 314.00 Active 07533569 Problem Intermittent explosive disorder F63.81 Active 88572814 Problem Attention deficit hyperactivity disorder F90.9 Active 322725218 Problem Bipolar disorder, currently in remission, most recent episode unspecified F31.70 Active 46496764 Problem Moderate intellectual disability F71 Active 57073502 ALLERGIES No Information ENCOUNTERS Encounter Location Date Diagnosis [facility] [address] [facility] [facility] [place] [id number] [address] [place] [phone] May, [facility] [address] [facility] [place] [id number] [address] [place] [address] May, [facility] [id number] [place] [phone] May, [facility] [address] [facility] [place] [id number] [address] [place] [address] May, [facility] [address] [facility] [place] [id number] [address] [place] [address] Apr, Bipolar disorder F31.9 [facility] [address] [id number] [address] [place] [address] Apr, Bipolar disorder F31.9 and H igh risk medication use Z79.899 [facility] [address] [id number] [address] [place] [address] March, Bipolar disorder F31.9 and H igh risk medication use Z79.899 [facility] [address] [id number] [address] [place] [address] March, Bipolar disorder F31.[id number] [place] [address] March, Caries K02.9 [facility] [address] [id number] [address] [place] [address] March, Bipolar disorder F31.9 [facility] [address] [id number] [address] [place] [address] March, Bipolar disorder F31.9 [facility] [address] [id number] [address] [place] [address] Feb, Bipolar disorder F31.9 [facility] [address] [id number] [address] [place] [address] Feb, Bipolar disorder F31.9 ; Att ention-deficit hyperactivity disorder, predominantly inattentive type F90.0 and Moderate intellectual disability F71 [facility] [address] [id number] [address] [place] [address] Jan, Bipolar disorder F31.9 [facility] [address] [id number] [address] [place] [address] Jan, Bipolar disorder F31.9 [facility] [address] [id number] [address] [place] [address] Jan, Dental examination Z01.20 ; 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 status requiring routine preventive dental care K08.9 and Caries K02.9 [facility] [address] [id number] [address] [place] [address] Jan, [facility] [address] [id number] [address] [place] [address] Jan, Bipolar disorder F31.9 ; Mod erate intellectual disability F71 and Attention-deficit hyperactivity disorder, predominantly inattentive type F90.0 [facility] [address] [id number] [address] [place] [phone] Dec, Bipolar disorder, currently in remission, most recent episode unspecified F31.70 [facility] [address] [id number] [address] [place] [address] Dec, Bipolar disorder, currently in remission, most recent episode unspecified F31.70 [facility] [address] [id number] [address] [place] [address] Dec, Bipolar disorder, currently in remission, most recent episode unspecified F31.70 [facility] [address] [id number] [address] [place] [address] Dec, [facility] [address] [id number] [address] [place] [address] Dec, Bipolar disorder, currently in remission, most recent episode unspecified F31.70 [facility] [address] [id number] [address] [place] [address] Nov, Bipolar disorder, currently in remission, most recent episode unspecified F31.70 [facility] [address] [id number] [address] [place] [address] Nov, [facility] [address] [id number] [address] [place] [address] Nov, [facility] [address] [facility] [place] [id number] [address] [place] [address] Nov, Bipolar disorder, currently in remission, most recent episode unspecified F31.70 [facility] [address] [id number] [address] [place] [address] Nov, Bipolar disorder, currently in remission, most recent episode unspecified F31.70 [facility] [address] [id number] [address] [place] [address] Oct, High risk medication use Z79 .899 ; Bipolar disorder F31.9 ; Moderate intellectual disability F71 and Attention-deficit hyperactivity disorder, predominantly inattentive type F90.0 [facility] [address] [id number] [address] [place] [address] Oct, [facility] [address] [id number] [address] [place] [address] Sep, Bipolar disorder, currently in remission, most recent episode unspecified F31.70 [facility] [address] [id number] [address] [place] [id number] Sep, 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 stat us requiring routine preventive dental care K08.9 and Arrested dental caries K02.3 [facility] [address] [facility] [place] [id number] [address] [place] [address] Sep, Bipolar disorder, currently in remission, most recent episode unspecified F31.70 ; Moderate intellectual disability F71 and Attention-deficit hyperactivity disorder, predominantly inattentive type F90.0 [facility] [address] [facility] [place] [id number] [address] [place] [phone] Sep, Bipolar disorder, currently in remission, most recent episode unspecified F31.70 [facility] [address] [id number] [address] [place] [address] Aug, Bipolar disorder, currently in remission, most recent episode unspecified F31.70 [facility] [address] [id number] [address] [place] [address] Jul, Bipolar disorder, currently in remission, most recent episode unspecified F31.70 [facility] [address] [id number] [address] [place] [address] Jul, Bipolar disorder, currently in remission, most recent episode unspecified F31.70 [facility] [address] [id number] [address] [place] [address] Jun, [facility] [address] [id number] [address] [place] [address] Jun, Bipolar disorder, currently in remission, most recent episode unspecified F31.70 [facility] [address] [id number] [address] [place] [id number] Jun, 2018 Dental examination Z01.20 an d Dental caries K02.9 [facility] [address] [id number] [address] [place] [address] May, Bipolar disorder, currently in remission, most recent episode unspecified F31.70 [facility] [address] [id number] [address] [place] [address] May, Bipolar disorder, currently in remission, most recent episode unspecified F31.70 [facility] [address] [id number] [address] [place] [address] May, Bipolar disorder, currently in remission, most recent episode unspecified F31.70 ; Moderate intellectual disability F71 and Attention-deficit hyperactivity disorder, predominantly inattentive type F90.0 [facility] [address] [id number] [address] [place] [phone] Apr, Bipolar disorder, unspecifie d F31.9 [facility] [address] [id number] [address] [place] [phone] Apr, [facility] [address] [id number] [address] [place] [address] Apr, [facility] [address] [id number] [address] [place] [address] Apr, [facility] [address] [id number] [address] [place] [address] March, [facility] [address] [id number] [address] [place] [phone] March, Bipolar disorder, currently in remission, most recent episode unspecified F31.70 ; Moderate intellectual disability F71 and Attention-deficit hyperactivity disorder, predominantly inattentive type F90.0 [facility] [address] [id number] [address] [place] [address] Feb, [facility] [address] [id number] [address] [place] [address] [id number] Feb, Dental examination Z01.20 [facility] [address] [id number] [address] [place] [phone] Jan, [facility] [address] [id number] [address] [place] [phone] Jan, [facility] [address] [id number] [address] [place] [phone] Dec, [facility] [address] [id number] [address] [place] [phone] Nov, [facility] [id number] [place] [address] [id number] Nov, Encounter for dental exam an d cleaning w/o abnormal findings Z01.20 [facility] [address] [id number] [address] [place] [address] [id number] Nov, Dental examination Z01.20 [facility] [address] [id number] [address] [place] [phone] Oct, [facility] [address] [id number] [address] [place] [phone] Oct, Bipolar disorder, currently in remission, most recent episode unspecified F31.70 ; Moderate intellectual disability F71 and Attention-deficit hyperactivity disorder, predominantly inattentive type F90.0 [facility] [address] [id number] [address] [place] [id number] Sep, [facility] [address] [id number] [address] [place] [phone] Sep, [facility] [address] [id number] [address] [place] [phone] Aug, [facility] [address] [id number] [address] [place] [phone] Aug, Attention-deficit hyperactiv ity disorder, predominantly inattentive type F90.0 ; Moderate intellectual disability F71 and Bipolar disorder F31.9 [facility] [address] [id number] [address] [place] [address] [id number] 11 Jul, 2017 Dental examination Z01.20 an d Dental caries K02.9 [facility] [address] [id number] [address] [place] [id number] 05 Jul, 2017 [facility] [address] [id number] [address] [place] [phone] Jun, Bipolar disorder F31.9 ; Att ention-deficit hyperactivity disorder, predominantly inattentive type F90.0 and Moderate intellectual disability 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 [facility] [address] [id number] [address] [place] [phone] Jun, [facility] [address] [id number] [address] [place] [phone] May, [facility] [address] [id number] [address] [place] [phone] Apr, [facility] [address] [facility] [place] [id number] [address] [place] [address] March, Intermittent explosive disor jocelyn F63.81 ; Attention deficit hyperactivity disorder F90.9 and Bipolar disorder F31.9 [facility] [address] [facility] [place] [id number] [address] [place] [phone] Feb, [facility] [address] [facility] [place] [id number] [address] [place] [phone] Jan, [facility] [address] [facility] [place] [id number] [address] [place] [id number] 13 Dec, 2016 Encounter for immunization Z 23 [facility] [address] [facility] [place] [id number] [address] [place] [id number] 13 Dec, 2016 Intermittent explosive disor jocelyn F63.81 ; Attention deficit hyperactivity disorder F90.9 and Bipolar disorder, currently in remission, most recent episode unspecified F31.70 [facility] [address] [id number] [address] [place] [phone] Nov, [facility] [address] [id number] [address] [place] [phone] Oct, [facility] [address] [id number] [address] [place] [phone] Oct, [facility] [address] [id number] [address] [place] [address] [id number] Oct, Dental examination Z01.20 [facility] [address] [id number] [address] [place] [phone] Sep, [facility] [address] [id number] [address] [place] [phone] Sep, [facility] [address] [id number] [address] [place] [phone] Sep, Intermittent explosive disor jocelyn F63.81 ; Bipolar disorder F31.9 and Attention deficit hyperactivity disorder F90.9 [facility] [address] [id number] [address] [place] [address] Aug, [facility] [address] [id number] [address] [place] [phone] Aug, [facility] [address] [id number] [address] [place] [phone] Aug, [facility] [address] [id number] [address] [place] [phone] Aug, Attention deficit hyperactiv ity disorder F90.9 [facility] [address] [id number] [address] [place] [id number] Jul, [facility] [address] [id number] [address] [place] [phone] Jun, [facility] [address] [id number] [address] [place] [phone] May, [facility] [address] [id number] [address] [place] [phone] Apr, [facility] [address] [facility] [facility] [place] [id number] [address] [place] [address] Apr, Bipolar disorder F31.9 ; Att ention deficit hyperactivity disorder F90.9 and Intermittent explosive disorder F63.81 [facility] [address] [id number] [address] [place] [phone] March, [facility] [address] [id number] [address] [place] [phone] Feb, [facility] [address] [id number] [address] [place] [phone] Feb, [facility] [address] [facility] [facility] [place] [id number] [address] [place] [phone] Jan, [facility] [address] [id number] [address] [place] [phone] Jan, [facility] [address] [id number] [address] [place] [phone] Dec, [facility] [address] [facility] [facility] [place] [id number] [address] [place] [phone] Nov, [facility] [address] [id number] [address] [place] [address] Nov, [facility] [address] [facility] [place] [id number] [address] [place] [phone] Nov, Attention deficit hyperactiv ity disorder F90.9 ; Intermittent explosive disorder F63.81 and Bipolar disorder F31.9 [facility] [address] [id number] [address] [place] [phone] Oct, [facility] [address] [facility] [facility] [place] [id number] [address] [place] [phone] Oct, [facility] [address] [facility] [facility] [place] [id number] [address] [place] [phone] Sep, [facility] [address] [id number] [address] [place] [phone] Aug, [facility] [address] [facility] [facility] [place] [id number] [address] [place] [id number] Jul, [facility] [address] [facility] [facility] [place] [id number] [address] [place] [phone] Jul, [facility] [address] [facility] [facility] [place] [id number] [address] [place] [address] Jul, Anxiety, generalized 300.02 ; Bipolar disorder, unspecified 296.80 ; 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.00 ; 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 and Impulse control disorder, unspecified 312.30 [facility] [address] [facility] [facility] [place] [id number] [address] [place] [id number] Jul, [facility] [address] [facility] [place] [id number] [address] [place] [address] Jun, [facility] [address] [facility] [place] [id number] [address] [place] [address] May, [facility] [address] [facility] [place] [id number] [address] [place] [address] Apr, [facility] [address] [facility] [place] [id number] [address] [place] [address] Apr, Bipolar disorder, unspecifie d 296.80 ; Generalized anxiety disorder 300.02 and 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.00 [facility] [address] [facility] [place] [id number] [address] [place] [phone] Apr, [facility] [address] [facility] [place] [id number] [address] [place] [id number] March, [facility] [address] [facility] [place] [id number] [address] [place] [phone] March, [facility] [address] [facility] [place] [id number] [address] [place] [phone] March, [facility] [address] [id number] [address] [place] [address], [place] [address] March, [facility] [address] [id number] [address] [place] [address], [place] [address] 14 Feb, 2015 [facility] [address] [id number] [address] [place] [address], [place] [address] Feb, [facility] [address] [id number] [address] [place] [address], [place] [address] Jan, [facility] [address] [id number] [address] [place] [address], [place] [address] Jan, [facility] [address] [id number] [address] [place] [address], [place] [address] Jan, [facility] [address] [id number] [address] [place] [address], [place] [address] Jan, [facility] [address] [id number] [address] [place] [address], [place] [address] Jan, [facility] [address] [id number] [address] [place] [address], [place] [address] Dec, [facility] [address] [id number] [address] [place] [address], [place] [address] Dec, [facility] [address] [id number] [address] [place] [address], [place] [address] Nov, [facility] [address] [id number] [address] [place] [address], [place] [address] Nov, [facility] [address] [id number] [address] [place] [address], [place] [address] Nov, [facility] [address] [id number] [address] [place] [address], [place] [address] Oct, [facility] [address] [id number] [address] [place] [address], [place] [address] Oct, [facility] [address] [id number] [address] [place] [address], [place] [address] Oct, [facility] [address] [id number] [address] [place] [address], [place] [address] Oct, [facility] [address] [id number] [address] [place] [address], [place] [address] Oct, [facility] [address] [id number] [address] [place] [address], [place] [address] Oct, [facility] [address] [id number] [address] [place] [address], [place] [address] Sep, [facility] [address] [id number] [address] [place] [address], [place] [address] Sep, [facility] [address] [id number] [address] [place] [address], [place] [address] Sep, [facility] [address] [id number] [address] [place] [address], [place] [address] Aug, [facility] [address] [id number] [address] [place] [address], [place] [address] Aug, [facility] [address] [id number] [address] [place] [address], [place] [address] Jul, [facility] [address] [id number] [address] [place] [address], [place] [address] Jul, [facility] [address] [id number] [address] [place] [address], [place] [address] Jun, [facility] [address] [id number] [address] [place] [address], [place] [address] Jun, [facility] [address] [id number] [address] [place] [address], [place] [address] Jun, [facility] [address] [id number] [address] [place] [address], [place] [address] Jun, [facility] [address] [id number] [address] [place] [address], [place] [address] May, [facility] [facility] [address] [id number] [address] [place] [address], [place] [address] May, [facility] [address] [id number] [address] [place] [address], [place] [address] May, [facility] [address] [id number] [address] [place] [address], [place] [address] Apr, [facility] [address] [id number] [address] [place] [address], [place] [address] Apr, [facility] [address] [id number] [address] [place] [address], [place] [address] Apr, [facility] [address] [id number] [address] [place] [address], [place] [address] Apr, [facility] [address] [id number] [address] [place] [address], [place] [address] March, [facility] [address] [id number] [address] [place] [address], [place] [address] March, [facility] [address] [id number] [address] [place] [address], [place] [address] March, [facility] [address] [id number] [address] [place] [address], [place] [address] March, [facility] [address] [id number] [address] [place] [address], [place] [address] Feb, [facility] [address] [id number] [address] [place] [address], [place] [address] Feb, [facility] [address] [id number] [address] [place] [address], [place] [address] Jan, [facility] [address] [id number] [address] [place] [address], [place] [address] Jan, [facility] [address] [id number] [address] [place] [address], [place] [address] Jan, [facility] [address] [id number] [address] [place] [address], [place] [address] Jan, [facility] [address] [id number] [address] [place] [address], [place] [address] Jan, [facility] [address] [id number] [address] [place] [address], [place] [address] Jan, [facility] [address] [id number] [address] [place] [address], [place] [address] Jan, [facility] [address] [id number] [address] [place] [address], [place] [address] Jan, [facility] [address] [id number] [address] [place] [address], [place] [address] Dec, [facility] [address] [id number] [address] [place] [address], [place] [address] Dec, [facility] [address] [id number] [address] [place] [address], [place] [address] Dec, [facility] [address] [id number] [address] [place] [address], [place] [address] Dec, [facility] [address] [id number] [address] [place] [address], [place] [address] Nov, [facility] [address] [id number] [address] [place] [address], [place] [address] Nov, [facility] [address] [id number] [address] [place] [address], [place] [address] Oct, [facility] [address] [id number] [address] [place] [address], [place] [address] Oct, [facility] [address] [id number] [address] [place] [address], [place] [address] Oct, [facility] [address] [id number] [address] [place] [address], [place] [address] Oct, [facility] [address] [id number] [address] [place] [address], [place] [address] Sep, [facility] [address] [id number] [address] [place] [address], [place] [address] Sep, [facility] [address] [id number] [address] [place] [address], [place] [address] Sep, [facility] [address] [id number] [address] [place] [address], [place] [address] Sep, [facility] [address] [id number] [address] [place] [address], [place] [address] Aug, [facility] [address] [id number] [address] [place] [address], [place] [address] Aug, [facility] [address] [id number] [address] [place] [address], [place] [address] Aug, [facility] [address] [id number] [address] [place] [address], [place] [address] Jul, [facility] [address] [id number] [address] [place] [address], [place] [address] Jul, [facility] [address] [id number] [address] [place] [address], [place] [address] Jun, [facility] [address] [id number] [address] [place] [address], [place] [address] Jun, [facility] [address] [id number] [address] [place] [address], [place] [address] May, [facility] [address] [id number] [address] [place] [address], [place] [address] May, [facility] [address] [id number] [address] [place] [address], [place] [address] Apr, [facility] [address] [id number] [address] [place] [address], [place] [address] March, [facility] [address] [id number] [address] [place] [address], [place] [address] March, [facility] [address] [id number] [address] [place] [address], [place] [address] Feb, [facility] [address] [id number] [address] [place] [address], [place] [address] Jan, [facility] [address] [id number] [address] [place] [address], [place] [address] Jan, [facility] [address] [id number] [address] [place] [address], [place] [address] Dec, [facility] [address] [id number] [address] [place] [address], [place] [address] Dec, [facility] [address] [id number] [address] [place] [address], [place] [address] Nov, [facility] [address] [id number] [address] [place] [address], [place] [address] Nov, [facility] [address] [id number] [address] [place] [address], [place] [address] Nov, [facility] [address] [id number] [address] [place] [address], [place] [address] Nov, [facility] [address] [id number] [address] [place] [address], [place] [address] Nov, [facility] [address] [id number] [address] [place] [address], [place] [address] Oct, [facility] [address] [id number] [address] [place] [address], [place] [address] Oct, [facility] [address] [id number] [address] [place] [address], [place] [address] Oct, [facility] [address] [id number] [address] [place] [address], [place] [address] Oct, [facility] [address] [id number] [address] [place] [address], [place] [address] Oct, [facility] [address] [id number] [address] [place] [address], [place] [address] 05 Oct, 2012 [facility] [address] [id number] [address] [place] [address], [place] [address] 05 Oct, 2012 [facility] [address] [id number] [address] [place] [address], [place] [address] Oct, [facility] [address] [id number] [address] [place] [address], [place] [address] Sep, [facility] [address] [id number] [address] [place] [address], [place] [address] Sep, [facility] [address] [id number] [address] [place] [address], [place] [address] Sep, [facility] [address] [id number] [address] [place] [address], [place] [address] Aug, [facility] [address] [id number] [address] [place] [address], [place] [address] Aug, [facility] [address] [id number] [address] [place] [address], [place] [address] Aug, [facility] [address] [id number] [address] [place] [address], [place] [address] Aug, [facility] [address] [id number] [address] [place] [address], [place] [address] Aug, [facility] [address] [id number] [address] [place] [address], [place] [address] Jul, [facility] [address] [id number] [address] [place] [address], [place] [address] 18 Jul, 2012 [facility] [address] [id number] [address] [place] [address], [place] [address] Jun, [facility] [address] [id number] [address] [place] [address], [place] [address] May, [facility] [address] [id number] [address] [place] [address], [place] [address] May, [facility] [address] [id number] [address] [place] [address], [place] [address] Apr, [facility] [address] [id number] [address] [place] [address], [place] [address] March, [facility] [address] [id number] [address] [place] [address], [place] [address] March, [facility] [address] [id number] [address] [place] [address], [place] [address] March, [facility] [address] [id number] [address] [place] [address], [place] [address] March, [facility] [address] [id number] [address] [place] [address], [place] [address] Feb, [facility] [address] [id number] [address] [place] [address], [place] [address] Feb, [facility] [address] [id number] [address] [place] [address], [place] [address] Jan, [facility] [address] [id number] [address] [place] [address], [place] [address] Dec, [facility] [address] [id number] [address] [place] [address], [place] [address] Dec, [facility] [address] [id number] [address] [place] [address], [place] [address] Dec, [facility] [address] [id number] [address] [place] [address], [place] [address] Nov, [facility] [address] [id number] [address] [place] [address], [place] [address] Nov, [facility] [address] [id number] [address] [place] [address], [place] [address] Nov, [facility] [address] [id number] [address] [place] [address], [place] [address] Oct, [facility] [address] [id number] [address] [place] [address], [place] [address] Sep, [facility] [address] [id number] [address] [place] [address] Aug, [facility] [address] [facility] [id number] [address] [place] [address] Aug, [facility] [address] [facility] [id number] [address] [place] [address] May, [facility] [address] [facility] [place] [id number] [address] [place] [address] Sep, [facility] [address] [facility] [place] [place] [id number] [address] [place] [address] Sep, IMMUNIZATIONS No Known Immunizations SOCIAL HISTORY Never Assessed REASON FOR VISIT PLAN OF CARE VITAL SIGNS MEDICATIONS Unknown Medications RESULTS No Results PROCEDURES No Known procedures INSTRUCTIONS MEDICATIONS ADMINISTERED No Known Medications MEDICAL (GENERAL) HISTORY Type Description Date Medical History bipolar Medical History adhd Medical History anxiety Surgical History No Surgical history information
--- OUTSIDE RECORDS SUMMARY | 2020-03-18 15:29 | XMS REPORT ---
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 Name Role Phone Migration, Doctor Unavailable Unavailable PROBLEMS Type Condition ICD9-CM Code RWU22-SL Code Onset Dates Condition S tatus SNOMED Code Problem 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 Ac tive 35289382 Problem Encounter for long-term (current) use of other medications V58.69 Active 331935181 Problem Bipolar disorder, unspecified 296.80 Active 05036828 Problem Bipolar I disorder, most recent episode (or current) mixed, moderate 296.62 Active 768594792 Problem Bipolar disorder F31.9 Active 137 61108 Problem Intellectual disability F79 Active 14573392 Problem Generalized anxiety disorder 300.02 A ctive 63848836 Problem Attention-deficit hyperactiv ity disorder, predominantly inattentive type F90.0 Active 58462008 Problem 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 314.00 Active 54913725 Problem Intermittent explosive disorder F63.81 Active 68238744 Problem Attention deficit hyperactivity disorder F90.9 Active 626135556 Problem Bipolar disorder, currently in remission, most recent episode unspecified F31.70 Active 55613759 Problem Moderate intellectual disability F71 Active 91477933 ALLERGIES No Information ENCOUNTERS Encounter Location Date Diagnosis [place] [address] [id number] [address] [place] [phone] Feb, Bipolar disorder F31.9 [facility] [address] [id number] [address] [place] [phone] Feb, Bipolar disorder F31.9 ; Att ention-deficit hyperactivity disorder, predominantly inattentive type F90.0 and Moderate intellectual disability F71 [facility] [address] [id number] [address] [place] [address] Jan, Bipolar disorder F31.9 [facility] [address] [id number] [address] [place] [address] Jan, Bipolar disorder F31.9 [facility] [address] [id number] [address] [place] [phone] Jan, Dental examination Z01.20 ; 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 status requiring routine preventive dental care K08.9 and Caries K02.9 [facility] [address] [id number] [address] [place] [id number] Jan, [facility] [address] [id number] [address] [place] [phone] Jan, Bipolar disorder F31.9 ; Mod erate intellectual disability F71 and Attention-deficit hyperactivity disorder, predominantly inattentive type F90.0 [facility] [address] [id number] [address] [place] [address] Dec, Bipolar disorder, currently in remission, most recent episode unspecified F31.70 [facility] [address] [id number] [address] [place] [id number] Dec, Bipolar disorder, currently in remission, most recent episode unspecified F31.70 [facility] [address] [id number] [address] [place] [address] Dec, Bipolar disorder, currently in remission, most recent episode unspecified F31.70 [facility] [address] [id number] [address] [place] [address] Dec, [facility] [address] [id number] [address] [place] [id number] Dec, Bipolar disorder, currently in remission, most recent episode unspecified F31.70 [facility] [address] [id number] [address] [place] [phone] Nov, Bipolar disorder, currently in remission, most recent episode unspecified F31.70 [facility] [address] [id number] [address] [place] [phone] Nov, [facility] [address] [id number] [address] [place] [phone] Nov, [facility] [address] [id number] [address] [place] [address] Nov, Bipolar disorder, currently in remission, most recent episode unspecified F31.70 [facility] [address] [id number] [address] [place] [address] Nov, Bipolar disorder, currently in remission, most recent episode unspecified F31.70 [facility] [address] [id number] [address] [place] [phone] Oct, High risk medication use Z79 .899 ; Bipolar disorder F31.9 ; Moderate intellectual disability F71 and Attention-deficit hyperactivity disorder, predominantly inattentive type F90.0 [facility] [address] [id number] [address] [place] [id number] Oct, [facility] [address] [facility] [id number] [address] [place] [id number] Sep, Bipolar disorder, currently in remission, most recent episode unspecified F31.70 [facility] [address] [id number] [address] [place] [address] [id number] Sep, 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 stat us requiring routine preventive dental care K08.9 and Arrested dental caries K02.3 [facility] [address] [facility] [id number] [address] [place] [id number] Sep, Bipolar disorder, currently in remission, most recent episode unspecified F31.70 ; Moderate intellectual disability F71 and Attention-deficit hyperactivity disorder, predominantly inattentive type F90.0 [facility] [address] [id number] [address] [place] [address] Sep, Bipolar disorder, currently in remission, most recent episode unspecified F31.70 [facility] [address] [id number] [address] [place] [address] Aug, Bipolar disorder, currently in remission, most recent episode unspecified F31.70 [facility] [address] [id number] [address] [place] [address] Jul, Bipolar disorder, currently in remission, most recent episode unspecified F31.70 [facility] [address] [id number] [address] [place] [address] Jul, Bipolar disorder, currently in remission, most recent episode unspecified F31.70 [facility] [address] [id number] [address] [place] [address] Jun, [facility] [address] [id number] [address] [place] [phone] Jun, Bipolar disorder, currently in remission, most recent episode unspecified F31.70 [facility] [address] [id number] [address] [place] [address] [id number] Jun, Dental examination Z01.20 an d Dental caries K02.9 [facility] [address] [id number] [address] [place] [address] May, Bipolar disorder, currently in remission, most recent episode unspecified F31.70 [facility] [address] [id number] [address] [place] [address] May, Bipolar disorder, currently in remission, most recent episode unspecified F31.70 [facility] [address] [id number] [address] [place] [address] May, Bipolar disorder, currently in remission, most recent episode unspecified F31.70 ; Moderate intellectual disability F71 and Attention-deficit hyperactivity disorder, predominantly inattentive type F90.0 [facility] [address] [id number] [address] [place] [id number] Apr, Bipolar disorder, unspecifie d F31.9 [facility] [address] [id number] [address] [place] [phone] Apr, [facility] [address] [id number] [address] [place] [phone] Apr, [facility] [address] [id number] [address] [place] [phone] Apr, [facility] [address] [id number] [address] [place] [phone] March, [facility] [address] [id number] [address] [place] [address] March, Bipolar disorder, currently in remission, most recent episode unspecified F31.70 ; Moderate intellectual disability F71 and Attention-deficit hyperactivity disorder, predominantly inattentive type F90.0 [facility] [address] [id number] [address] [place] [phone] Feb, [facility] [address] [id number] [address] [place] [id number] Feb, Dental examination Z01.20 [facility] [address] [id number] [address] [place] [phone] Jan, [facility] [address] [id number] [address] [place] [address] Jan, [facility] [address] [id number] [address] [place] [phone] Dec, [facility] [address] [id number] [address] [place] [phone] Nov, [facility] [address] [id number] [address] [place] [phone] Nov, Dental examination Z01.20 [facility] [address] [id number] [address] [place] [address] [id number] Nov, Encounter for dental exam an d cleaning w/o abnormal findings Z01.20 [facility] [address] [id number] [address] [place] [phone] Oct, [facility] [address] [id number] [address] [place] [phone] Oct, Bipolar disorder, currently in remission, most recent episode unspecified F31.70 ; Moderate intellectual disability F71 and Attention-deficit hyperactivity disorder, predominantly inattentive type F90.0 [facility] [address] [id number] [address] [place] [phone] Sep, [facility] [address] [id number] [address] [place] [phone] Sep, [facility] [address] [id number] [address] [place] [phone] Aug, [facility] [address] [id number] [address] [place] [id number] Aug, Attention-deficit hyperactiv ity disorder, predominantly inattentive type F90.0 ; Moderate intellectual disability 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 and Bipolar disorder F31.9 [facility] [address] [id number] [address] [place] [address] [id number] 11 Jul, 2017 Dental examination Z01.20 an d Dental caries K02.9 [facility] [address] [id number] [address] [place] [id number] Jul, [facility] [address] [facility] [id number] [address] [place] [address] Jun, Bipolar disorder F31.9 ; Att ention-deficit hyperactivity disorder, predominantly inattentive type F90.0 and Moderate intellectual disability F71 [facility] [address] [id number] [address] [place] [phone] Jun, [facility] [address] [facility] [id number] [address] [place] [phone] May, [facility] [address] [id number] [address] [place] [id number] Apr, [facility] [address] [facility] [id number] [address] [place] [id number] March, Intermittent explosive disor jocelyn F63.81 ; Attention deficit hyperactivity disorder F90.9 and Bipolar disorder F31.9 [facility] [address] [id number] [address] [place] [phone] Feb, [facility] [address] [id number] [address] [place] [phone] Jan, [facility] [address] [id number] [address] [place] [id number] 13 Dec, 2016 Intermittent explosive disor jocelyn F63.81 ; Attention deficit hyperactivity disorder F90.9 and Bipolar disorder, currently in remission, most recent episode unspecified F31.70 [facility] [address] [facility] [id number] [address] [place] [phone] 13 Dec, 2016 Encounter for immunization Z 23 [facility] [address] [facility] [id number] [address] [place] [phone] 27 Nov, 2016 [facility] [address] [facility] [id number] [address] [place] [phone] Oct, [facility] [address] [facility] [id number] [address] [place] [phone] Oct, [facility] [address] [id number] [address] [place] [id number] Oct, Dental examination Z01.20 [facility] [address] [facility] [id number] [address] [place] [id number] Sep, [facility] [address] [facility] [id number] [address] [place] [phone] Sep, [facility] [address] [facility] [id number] [address] [place] [phone] Sep, Intermittent explosive disor jocelyn F63.81 ; Bipolar disorder F31.9 and Attention deficit hyperactivity disorder F90.9 [facility] [address] [facility] [id number] [address] [place] [phone] Aug, [facility] [address] [facility] [id number] [address] [place] [phone] Aug, [facility] [address] [facility] [id number] [address] [place] [phone] Aug, [facility] [address] [facility] [id number] [address] [place] [id number] Aug, Attention deficit hyperactiv ity disorder F90.9 [facility] [address] [facility] [id number] [address] [place] [id number] 16 Jul, 2016 [facility] [address] [id number] [address] [place] [phone] Jun, [facility] [address] [id number] [address] [place] [phone] May, [facility] [address] [id number] [address] [place] [id number] Apr, [facility] [address] [id number] [address] [place] [phone] Apr, Bipolar disorder F31.9 ; Att ention deficit hyperactivity disorder F90.9 and Intermittent explosive disorder F63.81 [facility] [address] [id number] [address] [place] [phone] March, [facility] [address] [id number] [address] [place] [phone] Feb, [facility] [address] [id number] [address] [place] [phone] Feb, [facility] [address] [id number] [address] [place] [phone] Jan, [facility] [address] [facility] [id number] [address] [place] [id number] Jan, [facility] [address] [id number] [address] [place] [address] Dec, [facility] [address] [id number] [address] [place] [phone] Nov, [facility] [address] [id number] [address] [place] [phone] Nov, [facility] [address] [facility] [id number] [address] [place] [address] Nov, Attention deficit hyperactiv ity disorder F90.9 ; Intermittent explosive disorder F63.81 and Bipolar disorder F31.9 [facility] [address] [id number] [address] [place] [phone] Oct, [facility] [address] [id number] [address] [place] [phone] Oct, [facility] [address] [id number] [address] [place] [phone] Sep, [facility] [address] [id number] [address] [place] [phone] Aug, [facility] [address] [id number] [address] [place] [phone] Jul, [facility] [address] [id number] [address] [place] [phone] Jul, [facility] [address] [facility] [id number] [address] [place] [id number] Jul, Anxiety, generalized 300.02 ; Bipolar disorder, unspecified 296.80 ; 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.00 ; 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 and Impulse control disorder, unspecified 312.30 [facility] [address] [facility] [id number] [address] [place] [phone] Jul, [facility] [address] [facility] [id number] [address] [place] [phone] Jun, [facility] [address] [facility] [id number] [address] [place] [phone] May, [facility] [address] [facility] [id number] [address] [place] [phone] Apr, [facility] [address] [facility] [id number] [address] [place] [id number] Apr, Bipolar disorder, unspecifie d 296.80 ; Generalized anxiety disorder 300.02 and 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.00 [facility] [address] [id number] [address] [place] [id number] Apr, [facility] [address] [facility] [id number] [address] [place] [id number] March, [facility] [address] [id number] [address] [place] [address], [place] [address] March, [facility] [address] [id number] [address] [place] [address], [place] [address] March, [facility] [address] [id number] [address] [place] [address], [place] [address] March, [facility] [address] [id number] [address] [place] [address], [place] [address] Feb, [facility] [address] [id number] [address] [place] [address], [place] [address] Feb, [facility] [address] [id number] [address] [place] [address], [place] [address] Jan, [facility] [address] [id number] [address] [place] [address], [place] [address] Jan, [facility] [address] [id number] [address] [place] [address], [place] [address] Jan, [facility] [address] [id number] [address] [place] [address], [place] [address] Jan, [facility] [address] [id number] [address] [place] [address], [place] [address] Jan, [facility] [address] [id number] [address] [place] [address], [place] [address] Dec, [facility] [address] [id number] [address] [place] [address], [place] [address] Dec, [facility] [address] [id number] [address] [place] [address], [place] [address] Nov, [facility] [address] [id number] [address] [place] [address], [place] [address] Nov, [facility] [address] [id number] [address] [place] [address], [place] [address] Nov, [facility] [address] [id number] [address] [place] [address], [place] [address] Oct, [facility] [address] [id number] [address] [place] [address], [place] [address] Oct, [facility] [address] [id number] [address] [place] [address], [place] [address] Oct, [facility] [address] [id number] [address] [place] [address], [place] [address] Oct, [facility] [address] [id number] [address] [place] [address], [place] [address] Oct, [facility] [address] [id number] [address] [place] [address], [place] [address] Oct, [facility] [address] [id number] [address] [place] [address], [place] [address] Sep, [facility] [address] [id number] [address] [place] [address], [place] [address] Sep, [facility] [address] [id number] [address] [place] [address], [place] [address] Sep, [facility] [address] [id number] [address] [place] [address], [place] [address] Aug, [facility] [address] [id number] [address] [place] [address], [place] [address] Aug, [facility] [address] [id number] [address] [place] [address], [place] [address] Jul, [facility] [address] [id number] [address] [place] [address], [place] [address] Jul, [facility] [address] [id number] [address] [place] [address], [place] [address] Jun, [facility] [address] [id number] [address] [place] [address], [place] [address] Jun, [facility] [address] [id number] [address] [place] [address], [place] [address] Jun, [facility] [address] [id number] [address] [place] [address], [place] [address] Jun, [facility] [address] [id number] [address] [place] [address], [place] [address] May, [facility] [address] [id number] [address] [place] [address], [place] [address] May, [facility] [address] [id number] [address] [place] [address], [place] [address] May, [facility] [address] [id number] [address] [place] [address], [place] [address] Apr, [facility] [address] [id number] [address] [place] [address], [place] [address] Apr, [facility] [address] [id number] [address] [place] [address], [place] [address] Apr, [facility] [address] [id number] [address] [place] [address], [place] [address] Apr, [facility] [address] [id number] [address] [place] [address], [place] [address] March, [facility] [address] [id number] [address] [place] [address], [place] [address] March, [facility] [address] [id number] [address] [place] [address], [place] [address] March, [facility] [address] [id number] [address] [place] [address], [place] [id number] March, [facility] [address] [id number] [address] [place] [address], [place] [id number] Feb, [facility] [address] [id number] [address] [place] [address], [place] [address] Feb, [facility] [address] [id number] [address] [place] [address], [place] [address] Jan, [facility] [address] [id number] [address] [place] [address], [place] [address] Jan, [facility] [address] [id number] [address] [place] [address], [place] [address] Jan, [facility] [address] [id number] [address] [place] [address], [place] [address] Jan, [facility] [address] [id number] [address] [place] [address], [place] [address] Jan, [facility] [address] [id number] [address] [place] [address], [place] [address] Jan, [facility] [address] [id number] [address] [place] [address], [place] [address] Jan, [facility] [address] [id number] [address] [place] [address], [place] [address] Jan, [facility] [address] [id number] [address] [place] [address], [place] [address] Dec, [facility] [address] [id number] [address] [place] [address], [place] [address] Dec, [facility] [address] [id number] [address] [place] [address], [place] [address] Dec, [facility] [address] [id number] [address] [place] [address], [place] [address] Dec, [facility] [address] [id number] [address] [place] [address], [place] [address] Nov, [facility] [address] [id number] [address] [place] [address], [place] [address] Nov, [facility] [address] [id number] [address] [place] [address], [place] [address] Oct, [facility] [address] [id number] [address] [place] [address], [place] [address] Oct, [facility] [address] [id number] [address] [place] [address], [place] [address] Oct, [facility] [address] [id number] [address] [place] [address], [place] [address] Oct, [facility] [address] [id number] [address] [place] [address], [place] [address] Sep, [facility] [address] [id number] [address] [place] [address], [place] [address] Sep, [facility] [address] [id number] [address] [place] [address], [place] [address] Sep, [facility] [address] [id number] [address] [place] [address], [place] [address] Sep, [facility] [address] [id number] [address] [place] [address], [place] [address] Aug, [facility] [address] [id number] [address] [place] [address], [place] [address] Aug, [facility] [address] [id number] [address] [place] [address], [place] [address] Aug, [facility] [address] [id number] [address] [place] [address], [place] [address] Jul, [facility] [address] [id number] [address] [place] [address], [place] [address] Jul, [facility] [address] [id number] [address] [place] [address], [place] [address] Jun, [facility] [address] [id number] [address] [place] [address], [place] [address] Jun, [facility] [address] [id number] [address] [place] [address], [place] [address] May, [facility] [address] [id number] [address] [place] [address], [place] [address] May, [facility] [address] [id number] [address] [place] [address], [place] [address] Apr, [facility] [address] [id number] [address] [place] [address], [place] [address] March, [facility] [address] [id number] [address] [place] [address], [place] [address] March, [facility] [address] [id number] [address] [place] [address], [place] [address] Feb, [facility] [address] [id number] [address] [place] [address], [place] [address] Jan, [facility] [address] [id number] [address] [place] [address], [place] [address] Jan, [facility] [address] [id number] [address] [place] [address], [place] [address] Dec, [facility] [address] [id number] [address] [place] [address], [place] [address] Dec, [facility] [address] [id number] [address] [place] [address], [place] [address] Nov, [facility] [address] [id number] [address] [place] [address], [place] [address] Nov, [facility] [address] [id number] [address] [place] [address], [place] [address] Nov, [facility] [address] [id number] [address] [place] [address], [place] [address] Nov, [facility] [address] [id number] [address] [place] [address], [place] [address] Nov, [facility] [address] [id number] [address] [place] [address], [place] [address] Oct, [facility] [address] [id number] [address] [place] [address], [place] [address] Oct, [facility] [address] [id number] [address] [place] [address], [place] [address] Oct, [facility] [address] [id number] [address] [place] [address], [place] [address] Oct, [facility] [address] [id number] [address] [place] [address], [place] [address] Oct, [facility] [address] [id number] [address] [place] [address], [place] [address] Oct, [facility] [address] [id number] [address] [place] [address], [place] [address] Oct, [facility] [address] [id number] [address] [place] [address], [place] [address] Oct, [facility] [address] [id number] [address] [place] [address], [place] [address] Sep, [facility] [address] [id number] [address] [place] [address], [place] [address] Sep, [facility] [address] [id number] [address] [place] [address], [place] [address] Sep, [facility] [address] [id number] [address] [place] [address], [place] [address] Aug, [facility] [address] [id number] [address] [place] [address], [place] [address] Aug, [facility] [address] [id number] [address] [place] [address], [place] [address] Aug, [facility] [address] [id number] [address] [place] [address], [place] [address] Aug, [facility] [address] [id number] [address] [place] [address], [place] [address] Aug, [facility] [address] [id number] [address] [place] [address], [place] [address] Jul, [facility] [address] [id number] [address] [place] [address], [place] [address] Jul, [facility] [address] [id number] [address] [place] [address], [place] [address] Jun, [facility] [address] [id number] [address] [place] [address], [place] [address] May, [facility] [address] [id number] [address] [place] [address], [place] [address] May, [facility] [address] [id number] [address] [place] [address], [place] [address] Apr, [facility] [address] [id number] [address] [place] [address], [place] [address] March, [facility] [address] [id number] [address] [place] [address], [place] [address] March, [facility] [address] [id number] [address] [place] [address], [place] [address] March, [facility] [address] [id number] [address] [place] [address], [place] [address] March, [facility] [address] [id number] [address] [place] [address], [place] [address] Feb, [facility] [address] [id number] [address] [place] [address], [place] [address] Feb, [facility] [address] [id number] [address] [place] [address], [place] [address] Jan, [facility] [address] [id number] [address] [place] [address], [place] [address] Dec, [facility] [address] [id number] [address] [place] [address], [place] [address] Dec, [facility] [address] [id number] [address] [place] [address], [place] [address] Dec, [facility] [address] [id number] [address] [place] [address], [place] [address] Nov, [facility] [address] [id number] [address] [place] [address], [place] [address] Nov, [facility] [address] [id number] [address] [place] [address], [place] [address] Nov, [facility] [address] [id number] [address] [place] [id number] 14 Oct, 2011 [facility] [address] [facility] [id number] [address] [place] [id number] Sep, [facility] [address] [facility] [id number] [address] [place] [id number] Aug, [facility] [address] [facility] [id number] [address] [place] [id number] Aug, [facility] [address] [facility] [id number] [address] [place] [id number] May, [facility] [address] [facility] [id number] [address] [place] [id number] Sep, [facility] [address] [facility] [id number] [address] [place] [id number] Sep, IMMUNIZATIONS No Known Immunizations SOCIAL HISTORY Never Assessed REASON FOR VISIT EMR-[facility] [place] PLAN OF CARE VITAL SIGNS MEDICATIONS Unknown Medications RESULTS No Results PROCEDURES No Known procedures INSTRUCTIONS MEDICATIONS ADMINISTERED No Known Medications MEDICAL (GENERAL) HISTORY Type Description Date Medical History bipolar Medical History adhd Medical History anxiety Surgical History No Surgical history information
--- OUTSIDE RECORDS SUMMARY | 2020-03-18 15:29 | XMS REPORT ---
Author Author Jose Cruz Mercer Doctor Organization [facility] Address Unknown Phone Unavailable Care Team Providers Care Manager Residential Name Role Phone Migration, Doctor Unavailable Unavailable PROBLEMS Type Condition ICD9-CM Code BXY18-WL Code Onset Dates Condition S tatus SNOMED Code Problem 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 Ac tive 47545563 Problem Encounter for long-term (current) use of other medications V58.69 Active 279629427 Problem Bipolar disorder, unspecified 296.80 Active 92617783 Problem Bipolar I disorder, most recent episode (or current) mixed, moderate 296.62 Active 952053262 Problem Bipolar disorder F31.9 Active 137 72608 Problem Intellectual disability F79 Active 73492409 Problem Generalized anxiety disorder 300.02 A ctive 06882622 Problem Attention-deficit hyperactiv ity disorder, predominantly inattentive type F90.0 Active 09973017 Problem 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 314.00 Active 85675465 Problem Intermittent explosive disorder F63.81 Active 67914008 Problem Attention deficit hyperactivity disorder F90.9 Active 218853307 Problem Bipolar disorder, currently in remission, most recent episode unspecified F31.70 Active 96977655 Problem Moderate intellectual disability F71 Active 25757280 ALLERGIES No Information ENCOUNTERS Encounter Location Date Diagnosis [place] [address] [id number] [address] [place] [phone] Feb, Bipolar disorder F31.9 [facility] [address] [id number] [address] [place] [phone] Feb, Bipolar disorder F31.9 ; Att ention-deficit hyperactivity disorder, predominantly inattentive type F90.0 and Moderate intellectual disability F71 [facility] [address] [id number] [address] [place] [phone] Jan, Bipolar disorder F31.9 [facility] [address] [id number] [address] [place] [phone] Jan, Bipolar disorder F31.9 [facility] [address] [id number] [address] [place] [phone] Jan, Dental examination Z01.20 ; 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 status requiring routine preventive dental care K08.9 and Caries K02.9 [facility] [address] [id number] [address] [place] [phone] Jan, [facility] [address] [id number] [address] [place] [address] Jan, Bipolar disorder F31.9 ; Mod erate intellectual disability F71 and Attention-deficit hyperactivity disorder, predominantly inattentive type F90.0 [facility] [address] [id number] [address] [place] [address] Dec, Bipolar disorder, currently in remission, most recent episode unspecified F31.70 [facility] [address] [id number] [address] [place] [phone] Dec, Bipolar disorder, currently in remission, most recent episode unspecified F31.70 [facility] [address] [id number] [address] [place] [address] Dec, Bipolar disorder, currently in remission, most recent episode unspecified F31.70 [facility] [address] [id number] [address] [place] [id number] Dec, [facility] [address] [id number] [address] [place] [phone] Dec, Bipolar disorder, currently in remission, most recent episode unspecified F31.70 [facility] [address] [id number] [address] [place] [address] Nov, Bipolar disorder, currently in remission, most recent episode unspecified F31.70 [facility] [address] [id number] [address] [place] [phone] Nov, [facility] [address] [id number] [address] [place] [phone] Nov, [facility] [address] [id number] [address] [place] [phone] Nov, Bipolar disorder, currently in remission, most recent episode unspecified F31.70 [facility] [address] [id number] [address] [place] [address] Nov, Bipolar disorder, currently in remission, most recent episode unspecified F31.70 [facility] [address] [id number] [address] [place] [id number] Oct, High risk medication use Z79 .899 ; Bipolar disorder F31.9 ; Moderate intellectual disability F71 and Attention-deficit hyperactivity disorder, predominantly inattentive type F90.0 [facility] [address] [id number] [address] [place] [phone] Oct, [facility] [address] [facility] [place] [id number] [address] [place] [phone] Sep, Bipolar disorder, currently in remission, most recent episode unspecified F31.70 [facility] [address] [id number] [address] [place] [id number] Sep, 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 stat us requiring routine preventive dental care K08.9 and Arrested dental caries K02.3 [facility] [address] [facility] [place] [id number] [address] [place] [phone] Sep, Bipolar disorder, currently in remission, most recent episode unspecified F31.70 ; Moderate intellectual disability F71 and Attention-deficit hyperactivity disorder, predominantly inattentive type F90.0 [facility] [address] [id number] [address] [place] [address] Sep, Bipolar disorder, currently in remission, most recent episode unspecified F31.70 [facility] [address] [id number] [address] [place] [phone] Aug, Bipolar disorder, currently in remission, most recent episode unspecified F31.70 [facility] [address] [id number] [address] [place] [phone] Jul, Bipolar disorder, currently in remission, most recent episode unspecified F31.70 [facility] [address] [id number] [address] [place] [address] Jul, Bipolar disorder, currently in remission, most recent episode unspecified F31.70 [facility] [address] [id number] [address] [place] [phone] Jun, [facility] [address] [id number] [address] [place] [id number] Jun, Bipolar disorder, currently in remission, most recent episode unspecified F31.70 [facility] [address] [id number] [address] [place] [address] [id number] Jun, Dental examination Z01.20 an d Dental caries K02.9 [facility] [address] [id number] [address] [place] [phone] May, Bipolar disorder, currently in remission, most recent episode unspecified F31.70 [facility] [address] [id number] [address] [place] [phone] May, Bipolar disorder, currently in remission, most recent episode unspecified F31.70 [facility] [address] [id number] [address] [place] [phone] May, Bipolar disorder, currently in remission, most recent episode unspecified F31.70 ; Moderate intellectual disability F71 and Attention-deficit hyperactivity disorder, predominantly inattentive type F90.0 [facility] [address] [id number] [address] [place] [phone] Apr, Bipolar disorder, unspecifie d F31.9 [facility] [address] [id number] [address] [place] [phone] Apr, [facility] [address] [id number] [address] [place] [phone] Apr, [facility] [address] [id number] [address] [place] [id number] Apr, [facility] [address] [id number] [address] [place] [phone] March, [facility] [address] [id number] [address] [place] [phone] March, Bipolar disorder, currently in remission, most recent episode unspecified F31.70 ; Moderate intellectual disability F71 and Attention-deficit hyperactivity disorder, predominantly inattentive type F90.0 [facility] [address] [id number] [address] [place] [phone] Feb, [facility] [address] [id number] [address] [place] [address] [id number] Feb, Dental examination Z01.20 [facility] [address] [id number] [address] [place] [phone] Jan, [facility] [address] [id number] [address] [place] [phone] Jan, [facility] [address] [id number] [address] [place] [phone] Dec, [facility] [address] [id number] [address] [place] [address] Nov, [facility] [address] [id number] [address] [place] [address] [id number] Nov, Dental examination Z01.20 [facility] [address] [id number] [address] [place] [address] [id number] Nov, Encounter for dental exam an d cleaning w/o abnormal findings Z01.20 [facility] [address] [id number] [address] [place] [phone] Oct, [facility] [address] [id number] [address] [place] [phone] Oct, Bipolar disorder, currently in remission, most recent episode unspecified F31.70 ; Moderate intellectual disability F71 and Attention-deficit hyperactivity disorder, predominantly inattentive type F90.0 [facility] [address] [id number] [address] [place] [phone] Sep, [facility] [address] [id number] [address] [place] [phone] Sep, [facility] [address] [id number] [address] [place] [phone] Aug, [facility] [address] [id number] [address] [place] [phone] Aug, Attention-deficit hyperactiv ity disorder, predominantly inattentive type F90.0 ; Moderate intellectual disability 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 and Bipolar disorder F31.9 [facility] [address] [id number] [address] [place] [address] [id number] Jul, 2017 Dental examination Z01.20 an d Dental caries K02.9 [facility] [address] [id number] [address] [place] [phone] Jul, [facility] [address] [facility] [place] [id number] [address] [place] [phone] Jun, Bipolar disorder F31.9 ; Att ention-deficit hyperactivity disorder, predominantly inattentive type F90.0 and Moderate intellectual disability 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 [facility] [address] [id number] [address] [place] [phone] Jun, [facility] [address] [facility] [place] [id number] [address] [place] [phone] May, [facility] [address] [id number] [address] [place] [phone] Apr, [facility] [address] [facility] [place] [id number] [address] [place] [phone] March, Intermittent explosive disor jocelyn F63.81 ; Attention deficit hyperactivity disorder F90.9 and Bipolar disorder F31.9 [facility] [address] [id number] [address] [place] [phone] Feb, [facility] [address] [id number] [address] [place] [phone] Jan, [facility] [address] [id number] [address] [place] [phone] 13 Dec, 2016 Intermittent explosive disor jocelyn F63.81 ; Attention deficit hyperactivity disorder F90.9 and Bipolar disorder, currently in remission, most recent episode unspecified F31.70 [facility] [address] [facility] [place] [id number] [address] [place] [id number] 13 Dec, 2016 Encounter for immunization Z 23 [facility] [address] [facility] [place] [id number] [address] [place] [phone] 27 Nov, 2016 [facility] [address] [facility] [place] [id number] [address] [place] [phone] Oct, [facility] [address] [facility] [place] [id number] [address] [place] [phone] Oct, [facility] [address] [id number] [address] [place] [id number] Oct, Dental examination Z01.20 [facility] [address] [facility] [place] [id number] [address] [place] [phone] Sep, [facility] [address] [facility] [place] [id number] [address] [place] [phone] Sep, [facility] [address] [facility] [place] [id number] [address] [place] [phone] Sep, Intermittent explosive disor jocelyn F63.81 ; Bipolar disorder F31.9 and Attention deficit hyperactivity disorder F90.9 [facility] [address] [facility] [place] [id number] [address] [place] [phone] Aug, [facility] [address] [facility] [place] [id number] [address] [place] [phone] Aug, [facility] [address] [facility] [place] [id number] [address] [place] [phone] Aug, [facility] [address] [facility] [place] [id number] [address] [place] [phone] Aug, Attention deficit hyperactiv ity disorder F90.9 [facility] [address] [facility] [place] [id number] [address] [place] [phone] 16 Jul, 2016 [facility] [address] [id number] [address] [place] [phone] Jun, [facility] [address] [id number] [address] [place] [phone] May, [facility] [address] [id number] [address] [place] [phone] Apr, [facility] [address] [id number] [address] [place] [phone] Apr, Bipolar disorder F31.9 ; Att ention deficit hyperactivity disorder F90.9 and Intermittent explosive disorder F63.81 [facility] [address] [id number] [address] [place] [phone] March, [facility] [address] [id number] [address] [place] [phone] Feb, [facility] [address] [id number] [address] [place] [phone] Feb, [facility] [address] [id number] [address] [place] [phone] Jan, [facility] [address] [facility] [place] [id number] [address] [place] [phone] Jan, [facility] [address] [id number] [address] [place] [phone] Dec, [facility] [address] [id number] [address] [place] [phone] Nov, [facility] [address] [id number] [address] [place] [phone] Nov, [facility] [address] [facility] [place] [id number] [address] [place] [phone] Nov, Attention deficit hyperactiv ity disorder F90.9 ; Intermittent explosive disorder F63.81 and Bipolar disorder F31.9 [facility] [address] [id number] [address] [place] [phone] Oct, [facility] [address] [id number] [address] [place] [phone] Oct, [facility] [address] [id number] [address] [place] [phone] Sep, [facility] [address] [id number] [address] [place] [phone] Aug, [facility] [address] [id number] [address] [place] [phone] Jul, [facility] [address] [id number] [address] [place] [phone] Jul, [facility] [address] [facility] [place] [id number] [address] [place] [phone] Jul, Anxiety, generalized 300.02 ; Bipolar disorder, unspecified 296.80 ; 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.00 ; 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 and Impulse control disorder, unspecified 312.30 [facility] [address] [facility] [place] [id number] [address] [place] [phone] Jul, [facility] [address] [facility] [place] [id number] [address] [place] [phone] Jun, [facility] [address] [facility] [place] [id number] [address] [place] [phone] May, [facility] [address] [facility] [place] [id number] [address] [place] [phone] Apr, [facility] [address] [facility] [place] [id number] [address] [place] [phone] Apr, Bipolar disorder, unspecifie d 296.80 ; Generalized anxiety disorder 300.02 and 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.00 [facility] [address] [id number] [address] [place] [phone] Apr, [facility] [address] [facility] [place] [id number] [address] [place] [phone] March, [facility] [address] [id number] [address] [place] [address], [place] [address] March, [facility] [address] [id number] [address] [place] [address], [place] [address] March, [facility] [address] [id number] [address] [place] [address], [place] [address] March, [facility] [address] [id number] [address] [place] [address], [place] [address] Feb, [facility] [address] [id number] [address] [place] [address], [place] [address] Feb, [facility] [address] [id number] [address] [place] [address], [place] [address] Jan, [facility] [address] [id number] [address] [place] [address], [place] [address] Jan, [facility] [address] [id number] [address] [place] [address], [place] [address] Jan, [facility] [address] [id number] [address] [place] [address], [place] [address] Jan, [facility] [address] [id number] [address] [place] [address], [place] [address] Jan, [facility] [address] [id number] [address] [place] [address], [place] [address] Dec, [facility] [address] [id number] [address] [place] [address], [place] [address] Dec, [facility] [address] [id number] [address] [place] [address], [place] [address] Nov, [facility] [address] [id number] [address] [place] [address], [place] [address] Nov, [facility] [address] [id number] [address] [place] [address], [place] [address] Nov, [facility] [address] [id number] [address] [place] [address], [place] [address] Oct, [facility] [address] [id number] [address] [place] [address], [place] [address] Oct, [facility] [address] [id number] [address] [place] [address], [place] [address] Oct, [facility] [address] [id number] [address] [place] [address], [place] [address] Oct, [facility] [address] [id number] [address] [place] [address], [place] [address] Oct, [facility] [address] [id number] [address] [place] [address], [place] [address] Oct, [facility] [address] [id number] [address] [place] [address], [place] [address] Sep, [facility] [address] [id number] [address] [place] [address], [place] [address] Sep, [facility] [address] [id number] [address] [place] [address], [place] [address] Sep, [facility] [address] [id number] [address] [place] [address], [place] [address] Aug, [facility] [address] [id number] [address] [place] [address], [place] [address] Aug, [facility] [address] [id number] [address] [place] [address], [place] [address] Jul, [facility] [address] [id number] [address] [place] [address], [place] [address] Jul, [facility] [address] [id number] [address] [place] [address], [place] [address] Jun, [facility] [address] [id number] [address] [place] [address], [place] [address] Jun, [facility] [address] [id number] [address] [place] [address], [place] [address] Jun, [facility] [address] [id number] [address] [place] [address], [place] [address] Jun, [facility] [address] [id number] [address] [place] [address], [place] [address] May, [facility] [address] [id number] [address] [place] [address], [place] [address] May, [facility] [address] [id number] [address] [place] [address], [place] [address] May, [facility] [address] [id number] [address] [place] [address], [place] [address] Apr, [facility] [address] [id number] [address] [place] [address], [place] [address] Apr, [facility] [address] [id number] [address] [place] [address], [place] [address] Apr, [facility] [address] [id number] [address] [place] [address], [place] [address] Apr, [facility] [address] [id number] [address] [place] [address], [place] [address] March, [facility] [address] [id number] [address] [place] [address], [place] [address] March, [facility] [address] [id number] [address] [place] [address], [place] [address] March, [facility] [address] [id number] [address] [place] [address], [place] [address] March, [facility] [address] [id number] [address] [place] [address], [place] [address] Feb, [facility] [address] [id number] [address] [place] [address], [place] [address] Feb, [facility] [address] [id number] [address] [place] [address], [place] [address] Jan, [facility] [address] [id number] [address] [place] [address], [place] [address] Jan, [facility] [address] [id number] [address] [place] [address], [place] [address] Jan, [facility] [facility] [address] [id number] [address] [place] [address], [place] [address] Jan, [facility] [address] [id number] [address] [place] [address], [place] [address] Jan, [facility] [address] [id number] [address] [place] [address], [place] [address] Jan, [facility] [address] [id number] [address] [place] [address], [place] [address] Jan, [facility] [address] [id number] [address] [place] [address], [place] [address] Jan, [facility] [address] [id number] [address] [place] [address], [place] [address] Dec, [facility] [address] [id number] [address] [place] [address], [place] [address] Dec, [facility] [address] [id number] [address] [place] [address], [place] [address] Dec, [facility] [address] [id number] [address] [place] [address], [place] [address] Dec, [facility] [address] [id number] [address] [place] [address], [place] [address] Nov, [facility] [address] [id number] [address] [place] [address], [place] [address] Nov, [facility] [address] [id number] [address] [place] [address], [place] [address] Oct, [facility] [address] [id number] [address] [place] [address], [place] [address] Oct, [facility] [address] [id number] [address] [place] [address], [place] [address] Oct, [facility] [address] [id number] [address] [place] [address], [place] [address] Oct, [facility] [address] [id number] [address] [place] [address], [place] [address] Sep, [facility] [address] [id number] [address] [place] [address], [place] [address] Sep, [facility] [address] [id number] [address] [place] [address], [place] [address] Sep, [facility] [address] [id number] [address] [place] [address], [place] [address] Sep, [facility] [address] [id number] [address] [place] [address], [place] [address] Aug, [facility] [address] [id number] [address] [place] [address], [place] [address] Aug, [facility] [address] [id number] [address] [place] [address], [place] [address] Aug, [facility] [address] [id number] [address] [place] [address], [place] [address] Jul, [facility] [address] [id number] [address] [place] [address], [place] [address] Jul, [facility] [address] [id number] [address] [place] [address], [place] [address] Jun, [facility] [address] [id number] [address] [place] [address], [place] [address] Jun, [facility] [address] [id number] [address] [place] [address], [place] [address] May, [facility] [address] [id number] [address] [place] [address], [place] [address] May, [facility] [address] [id number] [address] [place] [address], [place] [address] Apr, [facility] [address] [id number] [address] [place] [address], [place] [address] March, [facility] [address] [id number] [address] [place] [address], [place] [address] March, [facility] [address] [id number] [address] [place] [address], [place] [address] Feb, [facility] [address] [id number] [address] [place] [address], [place] [address] Jan, [facility] [address] [id number] [address] [place] [address], [place] [address] Jan, [facility] [address] [id number] [address] [place] [address], [place] [address] Dec, [facility] [address] [id number] [address] [place] [address], [place] [address] Dec, [facility] [address] [id number] [address] [place] [address], [place] [address] Nov, [facility] [address] [id number] [address] [place] [address], [place] [address] Nov, [facility] [address] [id number] [address] [place] [address], [place] [address] Nov, [facility] [address] [id number] [address] [place] [address], [place] [address] Nov, [facility] [address] [id number] [address] [place] [address], [place] [address] Nov, [facility] [address] [id number] [address] [place] [address], [place] [address] Oct, [facility] [address] [id number] [address] [place] [address], [place] [address] Oct, [facility] [address] [id number] [address] [place] [address], [place] [address] Oct, [facility] [address] [id number] [address] [place] [address], [place] [address] Oct, [facility] [address] [id number] [address] [place] [address], [place] [address] Oct, [facility] [address] [id number] [address] [place] [address], [place] [address] Oct, [facility] [address] [id number] [address] [place] [address], [place] [address] Oct, [facility] [address] [id number] [address] [place] [address], [place] [address] Oct, [facility] [address] [id number] [address] [place] [address], [place] [address] Sep, [facility] [address] [id number] [address] [place] [address], [place] [address] Sep, [facility] [address] [id number] [address] [place] [address], [place] [address] Sep, [facility] [address] [id number] [address] [place] [address], [place] [address] Aug, [facility] [address] [id number] [address] [place] [address], [place] [address] Aug, [facility] [address] [id number] [address] [place] [address], [place] [address] Aug, [facility] [address] [id number] [address] [place] [address], [place] [address] Aug, [facility] [address] [id number] [address] [place] [address], [place] [address] Aug, [facility] [address] [id number] [address] [place] [address], [place] [address] Jul, [facility] [address] [id number] [address] [place] [address], [place] [address] Jul, [facility] [address] [id number] [address] [place] [address], [place] [address] Jun, [facility] [address] [id number] [address] [place] [address], [place] [address] May, [facility] [address] [id number] [address] [place] [address], [place] [address] May, [facility] [address] [id number] [address] [place] [address], [place] [address] Apr, [facility] [address] [id number] [address] [place] [address], [place] [address] March, [facility] [address] [id number] [address] [place] [address], [place] [address] March, [facility] [address] [id number] [address] [place] [address], [place] [address] March, [facility] [address] [id number] [address] [place] [address], [place] [address] March, [facility] [address] [id number] [address] [place] [address], [place] [address] Feb, [facility] [address] [id number] [address] [place] [address], [place] [address] Feb, [facility] [address] [id number] [address] [place] [address], [place] [address] Jan, [facility] [address] [id number] [address] [place] [address], [place] [address] Dec, [facility] [address] [id number] [address] [place] [address], [place] [address] Dec, [facility] [address] [id number] [address] [place] [address], [place] [address] Dec, [facility] [address] [id number] [address] [place] [address], [place] [address] Nov, [facility] [address] [id number] [address] [place] [address], [place] [address] Nov, [facility] [address] [id number] [address] [place] [address], [place] [address] Nov, [facility] [address] [id number] [address] [place] [id number] 14 Oct, 2011 [facility] [address] [facility] [place] [id number] [address] [place] [address] Sep, [facility] [address] [facility] [place] [id number] [address] [place] [address] Aug, [facility] [address] [facility] [place] [id number] [address] [place] [address] Aug, [facility] [address] [facility] [place] [id number] [address] [place] [address] May, [facility] [address] [facility] [place] [id number] [address] [place] [address] Sep, [facility] [address] [facility] [place] [id number] [address] [place] [address] Sep, IMMUNIZATIONS No Known Immunizations SOCIAL HISTORY Never Assessed REASON FOR VISIT EMR-[facility] PLAN OF CARE VITAL SIGNS MEDICATIONS Unknown Medications RESULTS No Results PROCEDURES No Known procedures INSTRUCTIONS MEDICATIONS ADMINISTERED No Known Medications MEDICAL (GENERAL) HISTORY Type Description Date Medical History bipolar Medical History adhd Medical History anxiety Surgical History No Surgical history information
--- OUTSIDE RECORDS SUMMARY | 2020-03-18 15:29 | XMS REPORT ---
Author Author Jose Cruz Mercer Doctor Organization [facility] Address Unknown Phone Unavailable Care Team Providers Care Business Proposal Rep Name Role Phone Migration, Doctor Unavailable Unavailable PROBLEMS Type Condition ICD9-CM Code YUH63-LE Code Onset Dates Condition S tatus SNOMED Code Problem 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 Ac tive 58166090 Problem Encounter for long-term (current) use of other medications V58.69 Active 306290040 Problem Bipolar disorder, unspecified 296.80 Active 63449132 Problem Bipolar I disorder, most recent episode (or current) mixed, moderate 296.62 Active 337243935 Problem Bipolar disorder F31.9 Active 137 18367 Problem Intellectual disability F79 Active 77310895 Problem Generalized anxiety disorder 300.02 A ctive 94186329 Problem Attention-deficit hyperactiv ity disorder, predominantly inattentive type F90.0 Active 72996485 Problem 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 314.00 Active 58759246 Problem Intermittent explosive disorder F63.81 Active 27970069 Problem Attention deficit hyperactivity disorder F90.9 Active 523068859 Problem Bipolar disorder, currently in remission, most recent episode unspecified F31.70 Active 18968599 Problem Moderate intellectual disability F71 Active 29325649 ALLERGIES No Information ENCOUNTERS Encounter Location Date Diagnosis [place] [id number] [place] [address] Feb, Bipolar disorder F31.9 [facility] [id number] [place] [address] Feb, Bipolar disorder F31.9 ; Att ention-deficit hyperactivity disorder, predominantly inattentive type F90.0 and Moderate intellectual disability F71 [facility] [id number] [place] [address] Jan, Bipolar disorder F31.9 [facility] [id number] [place] [address] Jan, Bipolar disorder F31.9 [facility] [address] [id number] [address] [place] [address] Jan, Dental examination Z01.20 ; 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 status requiring routine preventive dental care K08.9 and Caries K02.9 [facility] [address] [id number] [address] [place] [address] Jan, [facility] [address] [id number] [address] [place] [address] Jan, Bipolar disorder F31.9 ; Mod erate intellectual disability F71 and Attention-deficit hyperactivity disorder, predominantly inattentive type F90.0 [facility] [address] [id number] [address] [place] [address] Dec, Bipolar disorder, currently in remission, most recent episode unspecified F31.70 [facility] [address] [id number] [address] [place] [address] Dec, Bipolar disorder, currently in remission, most recent episode unspecified F31.70 [facility] [address] [id number] [address] [place] [address] Dec, Bipolar disorder, currently in remission, most recent episode unspecified F31.70 [facility] [address] [id number] [address] [place] [address] Dec, [facility] [address] [id number] [address] [place] [address] Dec, Bipolar disorder, currently in remission, most recent episode unspecified F31.70 [facility] [address] [id number] [address] [place] [address] Nov, Bipolar disorder, currently in remission, most recent episode unspecified F31.70 [facility] [address] [id number] [address] [place] [address] Nov, [facility] [address] [id number] [address] [place] [address] Nov, [facility] [address] [id number] [address] [place] [address] Nov, Bipolar disorder, currently in remission, most recent episode unspecified F31.70 [facility] [address] [id number] [address] [place] [address] Nov, Bipolar disorder, currently in remission, most recent episode unspecified F31.70 [facility] [address] [id number] [address] [place] [address] Oct, High risk medication use Z79 .899 ; Bipolar disorder F31.9 ; Moderate intellectual disability F71 and Attention-deficit hyperactivity disorder, predominantly inattentive type F90.0 [facility] [address] [id number] [address] [place] [address] Oct, [facility] [address] [facility] [id number] [address] [place] [address] Sep, Bipolar disorder, currently in remission, most recent episode unspecified F31.70 [facility] [address] [id number] [address] [place] [id number] Sep, 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 stat us requiring routine preventive dental care K08.9 and Arrested dental caries K02.3 [facility] [address] [facility] [id number] [address] [place] [address] Sep, Bipolar disorder, currently in remission, most recent episode unspecified F31.70 ; Moderate intellectual disability F71 and Attention-deficit hyperactivity disorder, predominantly inattentive type F90.0 [facility] [address] [id number] [address] [place] [address] Sep, Bipolar disorder, currently in remission, most recent episode unspecified F31.70 [facility] [address] [id number] [address] [place] [address] Aug, Bipolar disorder, currently in remission, most recent episode unspecified F31.70 [facility] [address] [id number] [address] [place] [address] Jul, Bipolar disorder, currently in remission, most recent episode unspecified F31.70 [facility] [address] [id number] [address] [place] [address] Jul, Bipolar disorder, currently in remission, most recent episode unspecified F31.70 [facility] [address] [id number] [address] [place] [address] Jun, [facility] [address] [id number] [address] [place] [address] Jun, Bipolar disorder, currently in remission, most recent episode unspecified F31.70 [facility] [address] [id number] [address] [place] [address] [id number] Jun, Dental examination Z01.20 an d Dental caries K02.9 [facility] [address] [id number] [address] [place] [address] May, Bipolar disorder, currently in remission, most recent episode unspecified F31.70 [facility] [address] [id number] [address] [place] [address] May, Bipolar disorder, currently in remission, most recent episode unspecified F31.70 [facility] [address] [id number] [address] [place] [address] May, Bipolar disorder, currently in remission, most recent episode unspecified F31.70 ; Moderate intellectual disability F71 and Attention-deficit hyperactivity disorder, predominantly inattentive type F90.0 [facility] [address] [id number] [address] [place] [address] Apr, Bipolar disorder, unspecifie d F31.9 [facility] [address] [id number] [address] [place] [address] Apr, [facility] [address] [id number] [address] [place] [address] Apr, [facility] [address] [id number] [address] [place] [address] Apr, [facility] [address] [id number] [address] [place] [address] March, [facility] [address] [id number] [address] [place] [address] March, Bipolar disorder, currently in remission, most recent episode unspecified F31.70 ; Moderate intellectual disability F71 and Attention-deficit hyperactivity disorder, predominantly inattentive type F90.0 [facility] [address] [id number] [address] [place] [phone] Feb, [facility] [address] [id number] [address] [place] [id number] Feb, Dental examination Z01.20 [facility] [address] [id number] [address] [place] [address] Jan, [facility] [address] [id number] [address] [place] [address] Jan, [facility] [address] [id number] [address] [place] [address] Dec, [facility] [address] [id number] [address] [place] [address] Nov, [facility] [address] [id number] [address] [place] [address] [id number] Nov, Dental examination Z01.20 [facility] [address] [id number] [address] [place] [address] [id number] Nov, Encounter for dental exam an d cleaning w/o abnormal findings Z01.20 [facility] [address] [id number] [address] [place] [address] Oct, [facility] [address] [id number] [address] [place] [address] Oct, Bipolar disorder, currently in remission, most recent episode unspecified F31.70 ; Moderate intellectual disability F71 and Attention-deficit hyperactivity disorder, predominantly inattentive type F90.0 [facility] [address] [id number] [address] [place] [phone] Sep, [facility] [address] [id number] [address] [place] [phone] Sep, [facility] [address] [id number] [address] [place] [address] Aug, [facility] [address] [id number] [address] [place] [address] Aug, Attention-deficit hyperactiv ity disorder, predominantly inattentive type F90.0 ; Moderate intellectual disability 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 and Bipolar disorder F31.9 [facility] [address] [id number] [address] [place] [address] [id number] Jul, 2017 Dental examination Z01.20 an d Dental caries K02.9 [facility] [address] [id number] [address] [place] [address] Jul, [facility] [address] [facility] [id number] [address] [place] [address] Jun, Bipolar disorder F31.9 ; Att ention-deficit hyperactivity disorder, predominantly inattentive type F90.0 and Moderate intellectual disability F71 [facility] [address] [id number] [address] [place] [phone] Jun, [facility] [address] [facility] [id number] [address] [place] [address] May, [facility] [address] [id number] [address] [place] [address] Apr, [facility] [address] [facility] [id number] [address] [place] [phone] March, Intermittent explosive disor jocelyn F63.81 ; Attention deficit hyperactivity disorder F90.9 and Bipolar disorder F31.9 [facility] [address] [id number] [address] [place] [address] Feb, [facility] [address] [id number] [address] [place] [phone] Jan, [facility] [address] [id number] [address] [place] [phone] 13 Dec, 2016 Encounter for immunization Z 23 [facility] [address] [id number] [address] [place] [phone] 13 Dec, 2016 Intermittent explosive disor jocelyn F63.81 ; Attention deficit hyperactivity disorder F90.9 and Bipolar disorder, currently in remission, most recent episode unspecified F31.70 [facility] [address] [id number] [address] [place] [address] Nov, [facility] [address] [id number] [address] [place] [phone] Oct, [facility] [address] [id number] [address] [place] [address] Oct, [facility] [address] [id number] [address] [place] [address] [id number] Oct, Dental examination Z01.20 [facility] [address] [facility] [id number] [address] [place] [address] Sep, [facility] [address] [facility] [id number] [address] [place] [address] Sep, [facility] [address] [facility] [id number] [address] [place] [address] Sep, Intermittent explosive disor jocelyn F63.81 ; Bipolar disorder F31.9 and Attention deficit hyperactivity disorder F90.9 [facility] [address] [id number] [address] [place] [address] Aug, [facility] [address] [id number] [address] [place] [address] Aug, [facility] [address] [id number] [address] [place] [address] Aug, [facility] [address] [facility] [id number] [address] [place] [id number] Aug, Attention deficit hyperactiv ity disorder F90.9 [facility] [address] [facility] [id number] [address] [place] [phone] 16 Jul, 2016 [facility] [address] [id number] [address] [place] [phone] Jun, [facility] [address] [id number] [address] [place] [address] May, [facility] [address] [id number] [address] [place] [address] Apr, [facility] [address] [id number] [address] [place] [address] Apr, Bipolar disorder F31.9 ; Att ention deficit hyperactivity disorder F90.9 and Intermittent explosive disorder F63.81 [facility] [address] [id number] [address] [place] [address] March, [facility] [address] [id number] [address] [place] [phone] Feb, [facility] [address] [id number] [address] [place] [address] Feb, [facility] [address] [id number] [address] [place] [phone] Jan, [facility] [address] [facility] [id number] [address] [place] [phone] Jan, [facility] [address] [id number] [address] [place] [phone] Dec, [facility] [address] [id number] [address] [place] [address] Nov, [facility] [address] [id number] [address] [place] [phone] Nov, [facility] [address] [facility] [id number] [address] [place] [address] Nov, Attention deficit hyperactiv ity disorder F90.9 ; Intermittent explosive disorder F63.81 and Bipolar disorder F31.9 [facility] [address] [id number] [address] [place] [phone] Oct, [facility] [address] [id number] [address] [place] [address] Oct, [facility] [address] [id number] [address] [place] [address] Sep, [facility] [address] [id number] [address] [place] [address] Aug, [facility] [address] [id number] [address] [place] [address] Jul, [facility] [address] [id number] [address] [place] [address] Jul, [facility] [address] [facility] [id number] [address] [place] [address] Jul, Anxiety, generalized 300.02 ; Bipolar disorder, unspecified 296.80 ; 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.00 ; 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 and Impulse control disorder, unspecified 312.30 [facility] [address] [facility] [id number] [address] [place] [address] Jul, [facility] [address] [facility] [id number] [address] [place] [address] Jun, [facility] [address] [facility] [id number] [address] [place] [address] May, [facility] [address] [facility] [id number] [address] [place] [address] Apr, [facility] [address] [facility] [id number] [address] [place] [address] Apr, Bipolar disorder, unspecifie d 296.80 ; Generalized anxiety disorder 300.02 and 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.00 [facility] [address] [id number] [address] [place] [address] Apr, [facility] [address] [facility] [id number] [address] [place] [address] March, [facility] [address] [id number] [address] [place] [address], [place] [address] March, [facility] [address] [id number] [address] [place] [address], [place] [address] March, [facility] [address] [id number] [address] [place] [address], [place] [address] March, [facility] [address] [id number] [address] [place] [address], [place] [address] Feb, [facility] [address] [id number] [address] [place] [address], [place] [address] Feb, [facility] [address] [id number] [address] [place] [address], [place] [address] Jan, [facility] [address] [id number] [address] [place] [address], [place] [address] Jan, [facility] [address] [id number] [address] [place] [address], [place] [address] Jan, [facility] [address] [id number] [address] [place] [address], [place] [address] Jan, [facility] [address] [id number] [address] [place] [address], [place] [address] Jan, [facility] [address] [id number] [address] [place] [address], [place] [address] Dec, [facility] [address] [id number] [address] [place] [address], [place] [address] Dec, [facility] [address] [id number] [address] [place] [address], [place] [address] Nov, [facility] [address] [id number] [address] [place] [address], [place] [address] Nov, [facility] [address] [id number] [address] [place] [address], [place] [address] Nov, [facility] [address] [id number] [address] [place] [address], [place] [address] Oct, [facility] [address] [id number] [address] [place] [address], [place] [address] Oct, [facility] [address] [id number] [address] [place] [address], [place] [address] Oct, [facility] [address] [id number] [address] [place] [address], [place] [address] Oct, [facility] [address] [id number] [address] [place] [address], [place] [address] Oct, [facility] [address] [id number] [address] [place] [address], [place] [address] Oct, [facility] [address] [id number] [address] [place] [address], [place] [address] Sep, [facility] [address] [id number] [address] [place] [address], [place] [address] Sep, [facility] [address] [id number] [address] [place] [address], [place] [address] Sep, [facility] [address] [id number] [address] [place] [address], [place] [address] Aug, [facility] [address] [id number] [address] [place] [address], [place] [address] Aug, [facility] [address] [id number] [address] [place] [address], [place] [address] Jul, [facility] [address] [id number] [address] [place] [address], [place] [address] Jul, [facility] [address] [id number] [address] [place] [address], [place] [address] Jun, [facility] [address] [id number] [address] [place] [address], [place] [address] Jun, [facility] [address] [id number] [address] [place] [address], [place] [address] Jun, [facility] [address] [id number] [address] [place] [address], [place] [address] Jun, [facility] [address] [id number] [address] [place] [address], [place] [address] May, [facility] [address] [id number] [address] [place] [address], [place] [address] May, [facility] [address] [id number] [address] [place] [address], [place] [address] May, [facility] [address] [id number] [address] [place] [address], [place] [address] Apr, [facility] [address] [id number] [address] [place] [address], [place] [address] Apr, [facility] [address] [id number] [address] [place] [address], [place] [address] Apr, [facility] [address] [id number] [address] [place] [address], [place] [address] Apr, [facility] [address] [id number] [address] [place] [address], [place] [address] March, [facility] [address] [id number] [address] [place] [address], [place] [address] March, [facility] [address] [id number] [address] [place] [address], [place] [address] March, [facility] [address] [id number] [address] [place] [address], [place] [address] March, [facility] [address] [id number] [address] [place] [address], [place] [address] Feb, [facility] [address] [id number] [address] [place] [address], [place] [address] Feb, [facility] [address] [id number] [address] [place] [address], [place] [address] Jan, [facility] [address] [id number] [address] [place] [address], [place] [address] Jan, [facility] [address] [id number] [address] [place] [address], [place] [address] Jan, [facility] [address] [id number] [address] [place] [address], [place] [address] Jan, [facility] [address] [id number] [address] [place] [address], [place] [address] Jan, [facility] [address] [id number] [address] [place] [address], [place] [address] Jan, [facility] [address] [id number] [address] [place] [address], [place] [address] Jan, [facility] [address] [id number] [address] [place] [address], [place] [address] Jan, [facility] [address] [id number] [address] [place] [address], [place] [address] Dec, [facility] [address] [id number] [address] [place] [address], [place] [address] Dec, [facility] [address] [id number] [address] [place] [address], [place] [address] Dec, [facility] [address] [id number] [address] [place] [address], [place] [address] Dec, [facility] [address] [id number] [address] [place] [address], [place] [address] Nov, [facility] [address] [id number] [address] [place] [address], [place] [address] Nov, [facility] [address] [id number] [address] [place] [address], [place] [address] Oct, [facility] [address] [id number] [address] [place] [address], [place] [address] Oct, [facility] [address] [id number] [address] [place] [address], [place] [address] Oct, [facility] [address] [id number] [address] [place] [address], [place] [address] Oct, [facility] [address] [id number] [address] [place] [address], [place] [address] Sep, [facility] [address] [id number] [address] [place] [address], [place] [address] Sep, [facility] [address] [id number] [address] [place] [address], [place] [address] Sep, [facility] [address] [id number] [address] [place] [address], [place] [address] Sep, [facility] [address] [id number] [address] [place] [address], [place] [address] Aug, [facility] [address] [id number] [address] [place] [address], [place] [address] Aug, [facility] [address] [id number] [address] [place] [address], [place] [address] Aug, [facility] [address] [id number] [address] [place] [address], [place] [address] Jul, [facility] [address] [id number] [address] [place] [address], [place] [address] Jul, [facility] [address] [id number] [address] [place] [address], [place] [address] Jun, [facility] [address] [id number] [address] [place] [address], [place] [address] Jun, [facility] [address] [id number] [address] [place] [address], [place] [address] May, [facility] [address] [id number] [address] [place] [address], [place] [address] May, [facility] [address] [id number] [address] [place] [address], [place] [address] Apr, [facility] [address] [id number] [address] [place] [address], [place] [address] March, [facility] [address] [id number] [address] [place] [address], [place] [address] March, [facility] [address] [id number] [address] [place] [address], [place] [address] Feb, [facility] [address] [id number] [address] [place] [address], [place] [address] Jan, [facility] [address] [id number] [address] [place] [address], [place] [address] Jan, [facility] [address] [id number] [address] [place] [address], [place] [address] Dec, [facility] [address] [id number] [address] [place] [address], [place] [address] Dec, [facility] [address] [id number] [address] [place] [address], [place] [address] Nov, [facility] [address] [id number] [address] [place] [address], [place] [address] Nov, [facility] [address] [id number] [address] [place] [address], [place] [address] Nov, [facility] [address] [id number] [address] [place] [address], [place] [address] Nov, [facility] [address] [id number] [address] [place] [address], [place] [address] Nov, [facility] [address] [id number] [address] [place] [address], [place] [address] Oct, [facility] [address] [id number] [address] [place] [address], [place] [address] Oct, [facility] [address] [id number] [address] [place] [address], [place] [address] Oct, [facility] [address] [id number] [address] [place] [address], [place] [address] Oct, [facility] [address] [id number] [address] [place] [address], [place] [address] Oct, [facility] [address] [id number] [address] [place] [address], [place] [address] Oct, [facility] [address] [id number] [address] [place] [address], [place] [address] Oct, [facility] [address] [id number] [address] [place] [address], [place] [address] Oct, [facility] [address] [id number] [address] [place] [address], [place] [address] Sep, [facility] [address] [id number] [address] [place] [address], [place] [address] Sep, [facility] [address] [id number] [address] [place] [address], [place] [address] Sep, [facility] [address] [id number] [address] [place] [address], [place] [address] Aug, [facility] [address] [id number] [address] [place] [address], [place] [address] Aug, [facility] [address] [id number] [address] [place] [address], [place] [address] Aug, [facility] [address] [id number] [address] [place] [address], [place] [address] Aug, [facility] [address] [id number] [address] [place] [address], [place] [address] Aug, [facility] [address] [id number] [address] [place] [address], [place] [address] Jul, [facility] [address] [id number] [address] [place] [address], [place] [address] Jul, [facility] [address] [id number] [address] [place] [address], [place] [address] Jun, [facility] [address] [id number] [address] [place] [address], [place] [address] May, [facility] [address] [id number] [address] [place] [address], [place] [address] May, [facility] [address] [id number] [address] [place] [address], [place] [address] Apr, [facility] [address] [id number] [address] [place] [address], [place] [address] March, [facility] [address] [id number] [address] [place] [address], [place] [address] March, [facility] [address] [id number] [address] [place] [address], [place] [address] March, [facility] [address] [id number] [address] [place] [address], [place] [address] March, [facility] [address] [id number] [address] [place] [address], [place] [address] Feb, [facility] [address] [id number] [address] [place] [address], [place] [address] Feb, [facility] [address] [id number] [address] [place] [address], [place] [address] Jan, [facility] [address] [id number] [address] [place] [address], [place] [address] Dec, [facility] [address] [id number] [address] [place] [address], [place] [address] Dec, [facility] [address] [id number] [address] [place] [address], [place] [address] Dec, [facility] [address] [id number] [address] [place] [address], [place] [address] Nov, [facility] [address] [id number] [address] [place] [address], [place] [address] Nov, [facility] [address] [id number] [address] [place] [address], [place] [address] Nov, [facility] [address] [id number] [address] [place] [id number] 14 Oct, 2011 [facility] [address] [facility] [id number] [address] [place] [address] Sep, [facility] [address] [facility] [id number] [address] [place] [address] Aug, [facility] [address] [facility] [id number] [address] [place] [address] Aug, [facility] [address] [facility] [id number] [address] [place] [address] May, [facility] [address] [facility] [id number] [address] [place] [address] Sep, [facility] [address] [facility] [id number] [address] [place] [id number] Sep, IMMUNIZATIONS No Known Immunizations SOCIAL HISTORY Never Assessed REASON FOR VISIT EMR-[facility] [place] PLAN OF CARE VITAL SIGNS MEDICATIONS Unknown Medications RESULTS No Results PROCEDURES No Known procedures INSTRUCTIONS MEDICATIONS ADMINISTERED No Known Medications MEDICAL (GENERAL) HISTORY Type Description Date Medical History bipolar Medical History adhd Medical History anxiety Surgical History No Surgical history information
--- OUTSIDE RECORDS SUMMARY | 2020-03-18 15:29 | XMS REPORT ---
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 Name Role Phone Migration, Doctor Unavailable Unavailable PROBLEMS Type Condition ICD9-CM Code VTB80-[place] Code Onset Dates Condition S tatus SNOMED Code Problem 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 Ac tive 39368958 Problem Encounter for long-term (current) use of other medications V58.69 Active 968919202 Problem Bipolar disorder, unspecified 296.80 Active 44714512 Problem Bipolar I disorder, most recent episode (or current) mixed, moderate 296.62 Active 993981769 Problem Bipolar disorder F31.9 Active 137 76253 Problem Intellectual disability F79 Active 31336001 Problem Generalized anxiety disorder 300.02 A ctive 01614142 Problem Attention-deficit hyperactiv ity disorder, predominantly inattentive type F90.0 Active 86404195 Problem 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 314.00 Active 15357593 Problem Intermittent explosive disorder F63.81 Active 75459238 Problem Attention deficit hyperactivity disorder F90.9 Active 164965085 Problem Bipolar disorder, currently in remission, most recent episode unspecified F31.70 Active 95242050 Problem Moderate intellectual disability F71 Active 47722286 ALLERGIES No Information ENCOUNTERS Encounter Location Date Diagnosis [place] [id number] [place] [phone] Feb, Bipolar disorder F31.9 [facility] [id number] [place] [phone] Feb, Bipolar disorder F31.9 ; Att ention-deficit hyperactivity disorder, predominantly inattentive type F90.0 and Moderate intellectual disability F71 [facility] [id number] [place] [phone] Jan, Bipolar disorder F31.9 [facility] [id number] [place] [phone] Jan, Bipolar disorder F31.9 [facility] [address] [id number] [address] [place] [phone] Jan, Dental examination Z01.20 ; 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 status requiring routine preventive dental care K08.9 and Caries K02.9 [facility] [address] [id number] [address] [place] [phone] Jan, [facility] [address] [id number] [address] [place] [phone] Jan, Bipolar disorder F31.9 ; Mod erate intellectual disability F71 and Attention-deficit hyperactivity disorder, predominantly inattentive type F90.0 [facility] [address] [id number] [address] [place] [phone] Dec, Bipolar disorder, currently in remission, most recent episode unspecified F31.70 [facility] [address] [id number] [address] [place] [phone] Dec, Bipolar disorder, currently in remission, most recent episode unspecified F31.70 [facility] [address] [id number] [address] [place] [phone] Dec, Bipolar disorder, currently in remission, most recent episode unspecified F31.70 [facility] [address] [id number] [address] [place] [phone] Dec, [facility] [address] [id number] [address] [place] [phone] Dec, Bipolar disorder, currently in remission, most recent episode unspecified F31.70 [facility] [address] [id number] [address] [place] [phone] Nov, Bipolar disorder, currently in remission, most recent episode unspecified F31.70 [facility] [address] [id number] [address] [place] [phone] Nov, [facility] [address] [id number] [address] [place] [phone] Nov, [facility] [address] [id number] [address] [place] [phone] Nov, Bipolar disorder, currently in remission, most recent episode unspecified F31.70 [facility] [address] [id number] [address] [place] [phone] Nov, Bipolar disorder, currently in remission, most recent episode unspecified F31.70 [facility] [address] [id number] [address] [place] [phone] Oct, High risk medication use Z79 .899 ; Bipolar disorder F31.9 ; Moderate intellectual disability F71 and Attention-deficit hyperactivity disorder, predominantly inattentive type F90.0 [facility] [address] [id number] [address] [place] [phone] Oct, [facility] [address] [facility] [id number] [address] [place] [phone] Sep, Bipolar disorder, currently in remission, most recent episode unspecified F31.70 [facility] [address] [id number] [address] [place] [address] [id number] Sep, 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 stat us requiring routine preventive dental care K08.9 and Arrested dental caries K02.3 [facility] [address] [facility] [id number] [address] [place] [id number] Sep, Bipolar disorder, currently in remission, most recent episode unspecified F31.70 ; Moderate intellectual disability 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 and Attention-deficit hyperactivity disorder, predominantly inattentive type F90.0 [facility] [address] [id number] [address] [place] [phone] Sep, Bipolar disorder, currently in remission, most recent episode unspecified F31.70 [facility] [address] [id number] [address] [place] [phone] Aug, Bipolar disorder, currently in remission, most recent episode unspecified F31.70 [facility] [address] [id number] [address] [place] [phone] Jul, Bipolar disorder, currently in remission, most recent episode unspecified F31.70 [facility] [address] [id number] [address] [place] [phone] Jul, Bipolar disorder, currently in remission, most recent episode unspecified F31.70 [facility] [address] [id number] [address] [place] [phone] Jun, [facility] [address] [id number] [address] [place] [phone] Jun, Bipolar disorder, currently in remission, most recent episode unspecified F31.70 [facility] [address] [id number] [address] [place] [phone] Jun, Dental examination Z01.20 an d Dental caries K02.9 [facility] [address] [id number] [address] [place] [phone] May, Bipolar disorder, currently in remission, most recent episode unspecified F31.70 [facility] [address] [id number] [address] [place] [phone] May, Bipolar disorder, currently in remission, most recent episode unspecified F31.70 [facility] [address] [id number] [address] [place] [phone] May, Bipolar disorder, currently in remission, most recent episode unspecified F31.70 ; Moderate intellectual disability F71 and Attention-deficit hyperactivity disorder, predominantly inattentive type F90.0 [facility] [address] [id number] [address] [place] [phone] Apr, Bipolar disorder, unspecifie d F31.9 [facility] [address] [id number] [address] [place] [phone] Apr, [facility] [address] [id number] [address] [place] [phone] Apr, [facility] [address] [id number] [address] [place] [phone] Apr, [facility] [address] [id number] [address] [place] [phone] March, [facility] [address] [id number] [address] [place] [phone] March, Bipolar disorder, currently in remission, most recent episode unspecified F31.70 ; Moderate intellectual disability F71 and Attention-deficit hyperactivity disorder, predominantly inattentive type F90.0 [facility] [address] [id number] [address] [place] [phone] Feb, [facility] [address] [id number] [address] [place] [phone] Feb, Dental examination Z01.20 [facility] [address] [id number] [address] [place] [phone] Jan, [facility] [address] [id number] [address] [place] [phone] Jan, [facility] [address] [id number] [address] [place] [phone] Dec, [facility] [address] [id number] [address] [place] [phone] Nov, [facility] [address] [id number] [address] [place] [phone] Nov, Dental examination Z01.20 [facility] [address] [id number] [address] [place] [phone] Nov, Encounter for dental exam an d cleaning w/o abnormal findings Z01.20 [facility] [address] [id number] [address] [place] [phone] Oct, [facility] [address] [id number] [address] [place] [phone] Oct, Bipolar disorder, currently in remission, most recent episode unspecified F31.70 ; Moderate intellectual disability F71 and Attention-deficit hyperactivity disorder, predominantly inattentive type F90.0 [facility] [address] [id number] [address] [place] [phone] Sep, [facility] [address] [id number] [address] [place] [phone] Sep, [facility] [address] [id number] [address] [place] [phone] Aug, [facility] [address] [id number] [address] [place] [phone] Aug, Attention-deficit hyperactiv ity disorder, predominantly inattentive type F90.0 ; Moderate intellectual disability 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 and Bipolar disorder F31.9 [facility] [address] [id number] [address] [place] [address] [id number] 11 Jul, 2017 Dental examination Z01.20 an d Dental caries K02.9 [facility] [address] [id number] [address] [place] [phone] Jul, [facility] [address] [facility] [id number] [address] [place] [phone] Jun, Bipolar disorder F31.9 ; Att ention-deficit hyperactivity disorder, predominantly inattentive type F90.0 and Moderate intellectual disability F71 [facility] [address] [id number] [address] [place] [phone] Jun, [facility] [address] [facility] [id number] [address] [place] [phone] May, [facility] [address] [id number] [address] [place] [phone] Apr, [facility] [address] [facility] [id number] [address] [place] [phone] March, Intermittent explosive disor jocelyn F63.81 ; Attention deficit hyperactivity disorder F90.9 and Bipolar disorder F31.9 [facility] [address] [id number] [address] [place] [phone] Feb, [facility] [address] [id number] [address] [place] [phone] Jan, [facility] [address] [id number] [address] [place] [phone] 13 Dec, 2016 Intermittent explosive disor jocelyn F63.81 ; Attention deficit hyperactivity disorder F90.9 and Bipolar disorder, currently in remission, most recent episode unspecified F31.70 [facility] [address] [facility] [id number] [address] [place] [phone] 13 Dec, 2016 Encounter for immunization Z 23 [facility] [address] [facility] [id number] [address] [place] [phone] 27 Nov, 2016 [facility] [address] [facility] [id number] [address] [place] [phone] Oct, [facility] [address] [facility] [id number] [address] [place] [phone] Oct, [facility] [address] [id number] [address] [place] [address] [id number] Oct, Dental examination Z01.20 [facility] [address] [facility] [id number] [address] [place] [phone] Sep, [facility] [address] [facility] [id number] [address] [place] [phone] Sep, [facility] [address] [facility] [id number] [address] [place] [phone] Sep, Intermittent explosive disor jcoelyn F63.81 ; Bipolar disorder F31.9 and Attention deficit hyperactivity disorder F90.9 [facility] [address] [facility] [id number] [address] [place] [phone] Aug, [facility] [address] [facility] [id number] [address] [place] [phone] Aug, [facility] [address] [facility] [id number] [address] [place] [phone] Aug, [facility] [address] [facility] [id number] [address] [place] [phone] Aug, Attention deficit hyperactiv ity disorder F90.9 [facility] [address] [facility] [id number] [address] [place] [phone] 16 Jul, 2016 [facility] [address] [id number] [address] [place] [phone] Jun, [facility] [address] [id number] [address] [place] [phone] May, [facility] [address] [id number] [address] [place] [phone] Apr, [facility] [address] [id number] [address] [place] [phone] Apr, Bipolar disorder F31.9 ; Att ention deficit hyperactivity disorder F90.9 and Intermittent explosive disorder F63.81 [facility] [address] [id number] [address] [place] [phone] March, [facility] [address] [id number] [address] [place] [phone] Feb, [facility] [address] [id number] [address] [place] [phone] Feb, [facility] [address] [id number] [address] [place] [phone] Jan, [facility] [address] [facility] [id number] [address] [place] [phone] Jan, [facility] [address] [id number] [address] [place] [phone] Dec, [facility] [address] [id number] [address] [place] [phone] Nov, [facility] [address] [id number] [address] [place] [phone] Nov, [facility] [address] [facility] [id number] [address] [place] [phone] Nov, Attention deficit hyperactiv ity disorder F90.9 ; Intermittent explosive disorder F63.81 and Bipolar disorder F31.9 [facility] [address] [id number] [address] [place] [phone] Oct, [facility] [address] [id number] [address] [place] [phone] Oct, [facility] [address] [id number] [address] [place] [phone] Sep, [facility] [address] [id number] [address] [place] [phone] Aug, [facility] [address] [id number] [address] [place] [phone] Jul, [facility] [address] [id number] [address] [place] [phone] Jul, [facility] [address] [facility] [id number] [address] [place] [phone] Jul, Anxiety, generalized 300.02 ; Bipolar disorder, unspecified 296.80 ; 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.00 ; 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 and Impulse control disorder, unspecified 312.30 [facility] [address] [facility] [id number] [address] [place] [phone] Jul, [facility] [address] [facility] [id number] [address] [place] [phone] Jun, [facility] [address] [facility] [id number] [address] [place] [phone] May, [facility] [address] [facility] [id number] [address] [place] [phone] Apr, [facility] [address] [facility] [id number] [address] [place] [phone] Apr, Bipolar disorder, unspecifie d 296.80 ; Generalized anxiety disorder 300.02 and 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.00 [facility] [address] [id number] [address] [place] [phone] Apr, [facility] [address] [facility] [id number] [address] [place] [phone] March, [facility] [address] [id number] [address] [place] [address], [place] [phone] March, [facility] [address] [id number] [address] [place] [address], [place] [address] March, [facility] [address] [id number] [address] [place] [address], [place] [phone] March, [facility] [address] [id number] [address] [place] [address], [place] [address] Feb, [facility] [address] [id number] [address] [place] [address], [place] [phone] Feb, [facility] [address] [id number] [address] [place] [address], [place] [phone] Jan, [facility] [address] [id number] [address] [place] [address], [place] [phone] Jan, [facility] [address] [id number] [address] [place] [address], [place] [phone] Jan, [facility] [address] [id number] [address] [place] [address], [place] [phone] Jan, [facility] [address] [id number] [address] [place] [address], [place] [address] Jan, [facility] [address] [id number] [address] [place] [address], [place] [address] Dec, [facility] [address] [id number] [address] [place] [address], [place] [address] Dec, [facility] [address] [id number] [address] [place] [address], [place] [address] Nov, [facility] [address] [id number] [address] [place] [address], [place] [address] Nov, [facility] [address] [id number] [address] [place] [address], [place] [address] Nov, [facility] [address] [id number] [address] [place] [address], [place] [address] Oct, [facility] [address] [id number] [address] [place] [address], [place] [address] Oct, [facility] [address] [id number] [address] [place] [address], [place] [address] Oct, [facility] [address] [id number] [address] [place] [address], [place] [address] Oct, [facility] [address] [id number] [address] [place] [address], [place] [address] Oct, [facility] [address] [id number] [address] [place] [address], [place] [address] Oct, [facility] [address] [id number] [address] [place] [address], [place] [address] Sep, [facility] [address] [id number] [address] [place] [address], [place] [address] Sep, [facility] [address] [id number] [address] [place] [address], [place] [address] Sep, [facility] [address] [id number] [address] [place] [address], [place] [address] Aug, [facility] [address] [id number] [address] [place] [address], [place] [address] Aug, [facility] [address] [id number] [place] [address], [place] [address] Jul, [facility] [address] [id number] [address] [place] [address], [place] [address] Jul, [facility] [address] [id number] [address] [place] [address], [place] [address] Jun, [facility] [address] [id number] [address] [place] [address], [place] [address] Jun, [facility] [address] [id number] [address] [place] [address], [place] [address] Jun, [facility] [address] [id number] [address] [place] [address], [place] [address] Jun, [facility] [address] [id number] [address] [place] [address], [place] [address] May, [facility] [address] [id number] [address] [place] [address], [place] [address] May, [facility] [address] [id number] [address] [place] [address], [place] [address] May, [facility] [address] [id number] [address] [place] [address], [place] [address] Apr, [facility] [address] [id number] [address] [place] [address], [place] [address] Apr, [facility] [address] [id number] [address] [place] [address], [place] [address] Apr, [facility] [address] [id number] [address] [place] [address], [place] [address] Apr, [facility] [address] [id number] [address] [place] [address], [place] [address] March, [facility] [address] [id number] [address] [place] [address], [place] [address] March, [facility] [address] [id number] [address] [place] [address], [place] [address] March, [facility] [address] [id number] [address] [place] [address], [place] [address] March, [facility] [address] [id number] [address] [place] [address], [place] [address] Feb, [facility] [address] [id number] [address] [place] [address], [place] [address] Feb, [facility] [address] [id number] [address] [place] [address], [place] [address] Jan, [facility] [address] [id number] [address] [place] [address], [place] [address] Jan, [facility] [address] [id number] [address] [place] [address], [place] [address] Jan, [facility] [address] [id number] [address] [place] [address], [place] [address] Jan, [facility] [address] [id number] [address] [place] [address], [place] [address] Jan, [facility] [address] [id number] [address] [place] [address], [place] [address] Jan, [facility] [address] [id number] [address] [place] [address], [place] [address] Jan, [facility] [address] [id number] [address] [place] [address], [place] [address] Jan, [facility] [address] [id number] [address] [place] [address], [place] [address] Dec, [facility] [address] [id number] [address] [place] [address], [place] [address] Dec, [facility] [address] [id number] [address] [place] [address], [place] [address] Dec, [facility] [address] [id number] [address] [place] [address], [place] [address] Dec, [facility] [address] [id number] [address] [place] [address], [place] [address] Nov, [facility] [address] [id number] [address] [place] [address], [place] [address] Nov, [facility] [address] [id number] [address] [place] [address], [place] [address] Oct, [facility] [address] [id number] [address] [place] [address], [place] [address] Oct, [facility] [address] [id number] [address] [place] [address], [place] [address] Oct, [facility] [address] [id number] [address] [place] [address], [place] [address] Oct, [facility] [address] [id number] [address] [place] [address], [place] [address] Sep, [facility] [address] [id number] [address] [place] [address], [place] [address] Sep, [facility] [address] [id number] [address] [place] [address], [place] [address] Sep, [facility] [address] [id number] [address] [place] [address], [place] [address] Sep, [facility] [address] [id number] [address] [place] [address], [place] [address] Aug, [facility] [address] [id number] [address] [place] [address], [place] [address] Aug, [facility] [address] [id number] [address] [place] [address], [place] [address] Aug, [facility] [address] [id number] [address] [place] [address], [place] [address] Jul, [facility] [address] [id number] [address] [place] [address], [place] [address] Jul, [facility] [address] [id number] [address] [place] [address], [place] [address] Jun, [facility] [address] [id number] [address] [place] [address], [place] [address] Jun, [facility] [address] [id number] [address] [place] [address], [place] [address] May, [facility] [address] [id number] [address] [place] [address], [place] [address] May, [facility] [address] [id number] [address] [place] [address], [place] [address] Apr, [facility] [address] [id number] [address] [place] [address], [place] [address] March, [facility] [address] [id number] [address] [place] [address], [place] [address] March, [facility] [address] [id number] [address] [place] [address], [place] [address] Feb, [facility] [address] [id number] [address] [place] [address], [place] [address] Jan, [facility] [address] [id number] [address] [place] [address], [place] [address] Jan, [facility] [address] [id number] [address] [place] [address], [place] [address] Dec, [facility] [address] [id number] [address] [place] [address], [place] [address] Dec, [facility] [address] [id number] [address] [place] [address], [place] [address] Nov, [facility] [address] [id number] [address] [place] [address], [place] [address] Nov, [facility] [address] [id number] [address] [place] [address], [place] [address] Nov, [facility] [address] [id number] [address] [place] [address], [place] [address] Nov, [facility] [address] [id number] [address] [place] [address], [place] [address] Nov, [facility] [address] [id number] [address] [place] [address], [place] [address] Oct, [facility] [address] [id number] [address] [place] [address], [place] [address] Oct, [facility] [address] [id number] [address] [place] [address], [place] [address] Oct, [facility] [address] [id number] [address] [place] [address], [place] [address] Oct, [facility] [address] [id number] [address] [place] [address], [place] [address] Oct, [facility] [address] [id number] [address] [place] [address], [place] [address] Oct, [facility] [address] [id number] [address] [place] [address], [place] [address] Oct, [facility] [address] [id number] [address] [place] [address], [place] [address] Oct, [facility] [address] [id number] [address] [place] [address], [place] [address] Sep, [facility] [address] [id number] [address] [place] [address], [place] [address] Sep, [facility] [address] [id number] [address] [place] [address], [place] [address] Sep, [facility] [address] [id number] [address] [place] [address], [place] [address] Aug, [facility] [address] [id number] [address] [place] [address], [place] [address] Aug, [facility] [address] [id number] [address] [place] [address], [place] [address] Aug, [facility] [address] [id number] [address] [place] [address], [place] [address] Aug, [facility] [address] [id number] [address] [place] [address], [place] [address] Aug, [facility] [address] [id number] [address] [place] [address], [place] [address] Jul, [facility] [address] [id number] [address] [place] [address], [place] [address] Jul, [facility] [address] [id number] [address] [place] [address], [place] [address] Jun, [facility] [address] [id number] [address] [place] [address], [place] [address] May, [facility] [address] [id number] [address] [place] [address], [place] [address] May, [facility] [address] [id number] [address] [place] [address], [place] [address] Apr, [facility] [address] [id number] [address] [place] [address], [place] [address] March, [facility] [address] [id number] [address] [place] [address], [place] [address] March, [facility] [address] [id number] [address] [place] [address], [place] [address] March, [facility] [address] [id number] [address] [place] [address], [place] [address] March, [facility] [address] [id number] [address] [place] [address], [place] [address] Feb, [facility] [address] [id number] [address] [place] [address], [place] [address] Feb, [facility] [address] [id number] [address] [place] [address], [place] [address] Jan, [facility] [address] [id number] [address] [place] [address], [place] [address] Dec, [facility] [address] [id number] [address] [place] [address], [place] [address] Dec, [facility] [address] [id number] [address] [place] [address], [place] [address] Dec, [facility] [address] [id number] [address] [place] [address], [place] [address] Nov, [facility] [address] [id number] [address] [place] [address], [place] [address] Nov, [facility] [address] [id number] [address] [place] [address], [place] [address] Nov, [facility] [address] [id number] [address] [place] [address] 14 Oct, 2011 [facility] [address] [facility] [id number] [address] [place] [address] Sep, [facility] [address] [facility] [id number] [address] [place] [address] Aug, [facility] [address] [facility] [id number] [address] [place] [address] Aug, [facility] [address] [facility] [id number] [address] [place] [address] May, [facility] [address] [facility] [id number] [address] [place] [address] Sep, [facility] [address] [facility] [id number] [address] [place] [address] Sep, IMMUNIZATIONS No Known Immunizations SOCIAL HISTORY Never Assessed REASON FOR VISIT EMR-[facility] PLAN OF CARE VITAL SIGNS MEDICATIONS Unknown Medications RESULTS No Results PROCEDURES No Known procedures INSTRUCTIONS MEDICATIONS ADMINISTERED No Known Medications MEDICAL (GENERAL) HISTORY Type Description Date Medical History bipolar Medical History adhd Medical History anxiety Surgical History No Surgical history information
--- OUTSIDE RECORDS SUMMARY | 2020-03-18 15:29 | XMS REPORT ---
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 Name Role Phone Migration, Doctor Unavailable Unavailable PROBLEMS Type Condition ICD9-CM Code OPD60-XM Code Onset Dates Condition S tatus SNOMED Code Problem 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 Ac tive 00326337 Problem Encounter for long-term (current) use of other medications V58.69 Active 177969282 Problem Bipolar disorder, unspecified 296.80 Active 61958358 Problem Bipolar I disorder, most recent episode (or current) mixed, moderate 296.62 Active 652124956 Problem Bipolar disorder F31.9 Active 137 46954 Problem Intellectual disability F79 Active 37432094 Problem Generalized anxiety disorder 300.02 A ctive 66615673 Problem Attention-deficit hyperactiv ity disorder, predominantly inattentive type F90.0 Active 35551156 Problem 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 314.00 Active 66893443 Problem Intermittent explosive disorder F63.81 Active 37951924 Problem Attention deficit hyperactivity disorder F90.9 Active 366267096 Problem Bipolar disorder, currently in remission, most recent episode unspecified F31.70 Active 49437989 Problem Moderate intellectual disability F71 Active 10391591 ALLERGIES No Information ENCOUNTERS Encounter Location Date Diagnosis [facility] [id number] [place] [id number] Feb, Bipolar disorder F31.9 [facility] [id number] [place] [id number] Feb, Bipolar disorder F31.9 ; Att ention-deficit hyperactivity disorder, predominantly inattentive type F90.0 and Moderate intellectual disability F71 [facility] [id number] [place] [id number] Jan, Bipolar disorder F31.9 [facility] [id number] [place] [id number] Jan, Bipolar disorder F31.9 [facility] [address] [id number] [address] [place] [id number] Jan, Dental examination Z01.20 ; 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 status requiring routine preventive dental care K08.9 and Caries K02.9 [facility] [address] [id number] [address] [place] [id number] Jan, [facility] [address] [id number] [address] [place] [id number] Jan, Bipolar disorder F31.9 ; Mod erate intellectual disability F71 and Attention-deficit hyperactivity disorder, predominantly inattentive type F90.0 [facility] [address] [id number] [address] [place] [id number] Dec, Bipolar disorder, currently in remission, most recent episode unspecified F31.70 [facility] [address] [id number] [address] [place] [id number] Dec, Bipolar disorder, currently in remission, most recent episode unspecified F31.70 [facility] [address] [id number] [address] [place] [address] Dec, Bipolar disorder, currently in remission, most recent episode unspecified F31.70 [facility] [address] [id number] [address] [place] [phone] Dec, [facility] [address] [id number] [address] [place] [id number] Dec, Bipolar disorder, currently in remission, most recent episode unspecified F31.70 [facility] [address] [id number] [address] [place] [id number] Nov, Bipolar disorder, currently in remission, most recent episode unspecified F31.70 [facility] [address] [id number] [address] [place] [id number] Nov, [facility] [address] [id number] [address] [place] [id number] Nov, [facility] [address] [id number] [address] [place] [id number] Nov, Bipolar disorder, currently in remission, most recent episode unspecified F31.70 [facility] [address] [id number] [address] [place] [id number] Nov, Bipolar disorder, currently in remission, most recent episode unspecified F31.70 [facility] [address] [id number] [address] [place] [id number] Oct, High risk medication use Z79 .899 ; Bipolar disorder F31.9 ; Moderate intellectual disability F71 and Attention-deficit hyperactivity disorder, predominantly inattentive type F90.0 [facility] [address] [id number] [address] [place] [id number] Oct, [facility] [address] [facility] [id number] [address] [place] [id number] Sep, Bipolar disorder, currently in remission, most recent episode unspecified F31.70 [facility] [address] [id number] [address] [place] [id number] Sep, 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 stat us requiring routine preventive dental care K08.9 and Arrested dental caries K02.3 [facility] [address] [facility] [id number] [address] [place] [id number] Sep, Bipolar disorder, currently in remission, most recent episode unspecified F31.70 ; Moderate intellectual disability F71 and Attention-deficit hyperactivity disorder, predominantly inattentive type F90.0 [facility] [address] [id number] [address] [place] [id number] Sep, Bipolar disorder, currently in remission, most recent episode unspecified F31.70 [facility] [address] [id number] [address] [place] [id number] Aug, Bipolar disorder, currently in remission, most recent episode unspecified F31.70 [facility] [address] [id number] [address] [place] [id number] Jul, Bipolar disorder, currently in remission, most recent episode unspecified F31.70 [facility] [address] [id number] [address] [place] [id number] Jul, Bipolar disorder, currently in remission, most recent episode unspecified F31.70 [facility] [address] [id number] [address] [place] [id number] Jun, [facility] [address] [id number] [address] [place] [id number] Jun, Bipolar disorder, currently in remission, most recent episode unspecified F31.70 [facility] [address] [id number] [address] [place] [id number] Jun, Dental examination Z01.20 an d Dental caries K02.9 [facility] [address] [id number] [address] [place] [id number] May, Bipolar disorder, currently in remission, most recent episode unspecified F31.70 [facility] [address] [id number] [address] [place] [id number] May, Bipolar disorder, currently in remission, most recent episode unspecified F31.70 [facility] [address] [id number] [address] [place] [id number] May, Bipolar disorder, currently in remission, most recent episode unspecified F31.70 ; Moderate intellectual disability F71 and Attention-deficit hyperactivity disorder, predominantly inattentive type F90.0 [facility] [address] [id number] [address] [place] [id number] Apr, Bipolar disorder, unspecifie d F31.9 [facility] [address] [id number] [address] [place] [id number] Apr, [facility] [address] [id number] [address] [place] [id number] Apr, [facility] [address] [id number] [address] [place] [id number] Apr, [facility] [address] [id number] [address] [place] [id number] March, [facility] [address] [id number] [address] [place] [id number] March, Bipolar disorder, currently in remission, most recent episode unspecified F31.70 ; Moderate intellectual disability F71 and Attention-deficit hyperactivity disorder, predominantly inattentive type F90.0 [facility] [address] [id number] [address] [place] [id number] Feb, [facility] [address] [id number] [address] [place] [id number] Feb, Dental examination Z01.20 [facility] [address] [id number] [address] [place] [id number] Jan, [facility] [address] [id number] [address] [place] [phone] Jan, [facility] [address] [id number] [address] [place] [id number] Dec, [facility] [address] [id number] [address] [place] [id number] Nov, [facility] [address] [id number] [address] [place] [address] [id number] Nov, Dental examination Z01.20 [facility] [address] [id number] [address] [place] [address] [id number] Nov, Encounter for dental exam an d cleaning w/o abnormal findings Z01.20 [facility] [address] [id number] [address] [place] [id number] Oct, [facility] [address] [id number] [address] [place] [id number] Oct, Bipolar disorder, currently in remission, most recent episode unspecified F31.70 ; Moderate intellectual disability F71 and Attention-deficit hyperactivity disorder, predominantly inattentive type F90.0 [facility] [address] [id number] [address] [place] [id number] Sep, [facility] [address] [id number] [address] [place] [phone] Sep, [facility] [address] [id number] [address] [place] [phone] Aug, [facility] [address] [id number] [address] [place] [phone] Aug, Attention-deficit hyperactiv ity disorder, predominantly inattentive type F90.0 ; Moderate intellectual disability F71 and Bipolar disorder F31.9 [facility] [address] [id number] [address] [place] [address] [id number] 11 Jul, 2017 Dental examination Z01.20 an d Dental caries K02.9 [facility] [address] [id number] [address] [place] [id number] Jul, [facility] [address] [facility] [id number] [address] [place] [id number] Jun, Bipolar disorder F31.9 ; Att ention-deficit hyperactivity disorder, predominantly inattentive type F90.0 and Moderate intellectual disability F71 [facility] [address] [id number] [address] [place] [phone] Jun, [facility] [address] [facility] [id number] [address] [place] [id number] May, [facility] [address] [id number] [address] [place] [id number] Apr, [facility] [address] [facility] [id number] [address] [place] [address] March, Intermittent explosive disor jocelyn F63.81 ; Attention deficit hyperactivity disorder F90.9 and Bipolar disorder F31.9 [facility] [address] [id number] [address] [place] [id number] Feb, [facility] [address] [id number] [address] [place] [id number] Jan, [facility] [address] [id number] [address] [place] [id number] 13 Dec, 2016 Intermittent explosive disor jocelyn F63.81 ; Attention deficit hyperactivity disorder F90.9 and Bipolar disorder, currently in remission, most recent episode unspecified F31.70 [facility] [address] [facility] [id number] [address] [place] [id number] 13 Dec, 2016 Encounter for immunization Z 23 [facility] [address] [facility] [id number] [address] [place] [id number] 27 Nov, 2016 [facility] [address] [facility] [id number] [address] [place] [id number] Oct, [facility] [address] [facility] [id number] [address] [place] [id number] Oct, [facility] [address] [id number] [address] [place] [address] [id number] Oct, Dental examination Z01.20 [facility] [address] [facility] [id number] [address] [place] [phone] Sep, [facility] [address] [facility] [id number] [address] [place] [phone] Sep, [facility] [address] [facility] [id number] [address] [place] [id number] Sep, Intermittent explosive disor jocelyn F63.81 ; Bipolar disorder F31.9 and Attention deficit hyperactivity disorder F90.9 [facility] [address] [facility] [id number] [address] [place] [id number] Aug, [facility] [address] [facility] [id number] [address] [place] [id number] Aug, [facility] [address] [facility] [id number] [address] [place] [id number] Aug, [facility] [address] [facility] [id number] [address] [place] [phone] Aug, Attention deficit hyperactiv ity disorder F90.9 [facility] [address] [facility] [id number] [address] [place] [id number] 16 Jul, 2016 [facility] [address] [id number] [address] [place] [phone] Jun, [facility] [address] [id number] [address] [place] [id number] May, [facility] [address] [id number] [address] [place] [id number] Apr, [facility] [address] [id number] [address] [place] [phone] Apr, Bipolar disorder F31.9 ; Att ention deficit hyperactivity disorder F90.9 and Intermittent explosive disorder F63.81 [facility] [address] [id number] [address] [place] [id number] March, [facility] [address] [id number] [address] [place] [id number] Feb, [facility] [address] [id number] [address] [place] [id number] Feb, [facility] [address] [id number] [address] [place] [id number] Jan, [facility] [address] [facility] [id number] [address] [place] [id number] Jan, [facility] [address] [id number] [address] [place] [id number] Dec, [facility] [address] [id number] [address] [place] [id number] Nov, [facility] [address] [id number] [address] [place] [phone] Nov, [facility] [address] [facility] [id number] [address] [place] [id number] Nov, Attention deficit hyperactiv ity disorder F90.9 ; Intermittent explosive disorder F63.81 and Bipolar disorder F31.9 [facility] [address] [id number] [address] [place] [id number] Oct, [facility] [address] [id number] [address] [place] [phone] Oct, [facility] [address] [id number] [address] [place] [id number] Sep, [facility] [address] [id number] [address] [place] [id number] Aug, [facility] [address] [id number] [address] [place] [id number] Jul, [facility] [address] [id number] [address] [place] [id number] Jul, [facility] [address] [facility] [id number] [address] [place] [id number] Jul, Anxiety, generalized 300.02 ; Bipolar disorder, unspecified 296.80 ; 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.00 ; 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 and Impulse control disorder, unspecified 312.30 [facility] [address] [facility] [id number] [address] [place] [id number] Jul, [facility] [address] [facility] [id number] [address] [place] [id number] Jun, [facility] [address] [facility] [id number] [address] [place] [id number] May, [facility] [address] [facility] [id number] [address] [place] [id number] Apr, [facility] [address] [facility] [id number] [address] [place] [id number] Apr, Bipolar disorder, unspecifie d 296.80 ; Generalized anxiety disorder 300.02 and 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.00 [facility] [address] [id number] [address] [place] [id number] Apr, [facility] [address] [facility] [id number] [address] [place] [id number] March, [facility] [address] [id number] [address] [place] [address], [place] [address] March, [facility] [address] [id number] [address] [place] [address], [place] [address] March, [facility] [address] [id number] [address] [place] [address], [place] [address] March, [facility] [address] [id number] [address] [place] [address], [place] [address] Feb, [facility] [address] [id number] [address] [place] [address], [place] [address] Feb, [facility] [address] [id number] [address] [place] [address], [place] [address] Jan, [facility] [address] [id number] [address] [place] [address], [place] [address] Jan, [facility] [address] [id number] [address] [place] [address], [place] [address] Jan, [facility] [address] [id number] [address] [place] [address], [place] [address] Jan, [facility] [address] [id number] [address] [place] [address], [place] [address] Jan, [facility] [address] [id number] [address] [place] [address], [place] [address] Dec, [facility] [address] [id number] [address] [place] [address], [place] [address] Dec, [facility] [address] [id number] [address] [place] [address], [place] [address] Nov, [facility] [address] [id number] [address] [place] [address], [place] [address] Nov, [facility] [address] [id number] [address] [place] [address], [place] [address] Nov, [facility] [address] [id number] [address] [place] [address], [place] [address] Oct, [facility] [address] [id number] [address] [place] [address], [place] [address] Oct, [facility] [address] [id number] [address] [place] [address], [place] [address] Oct, [facility] [address] [id number] [address] [place] [address], [place] [address] Oct, [facility] [address] [id number] [address] [place] [address], [place] [address] Oct, [facility] [address] [id number] [address] [place] [address], [place] [address] Oct, [facility] [address] [id number] [address] [place] [address], [place] [address] Sep, [facility] [address] [id number] [address] [place] [address], [place] [address] Sep, [facility] [address] [id number] [address] [place] [address], [place] [address] Sep, [facility] [address] [id number] [address] [place] [address], [place] [address] Aug, [facility] [address] [id number] [address] [place] [address], [place] [address] Aug, [facility] [address] [id number] [address] [place] [address], [place] [address] Jul, [facility] [address] [id number] [address] [place] [address], [place] [address] Jul, [facility] [address] [id number] [address] [place] [address], [place] [address] Jun, [facility] [address] [id number] [address] [place] [address], [place] [address] Jun, [facility] [address] [id number] [address] [place] [address], [place] [address] Jun, [facility] [address] [id number] [address] [place] [address], [place] [address] Jun, [facility] [address] [id number] [address] [place] [address], [place] [address] May, [facility] [address] [id number] [address] [place] [address], [place] [address] May, [facility] [address] [id number] [address] [place] [address], [place] [address] May, [facility] [address] [id number] [address] [place] [address], [place] [address] Apr, [facility] [address] [id number] [address] [place] [address], [place] [address] Apr, [facility] [address] [id number] [address] [place] [address], [place] [address] Apr, [facility] [address] [id number] [address] [place] [address], [place] [address] Apr, [facility] [address] [id number] [address] [place] [address], [place] [address] March, [facility] [address] [id number] [address] [place] [address], [place] [address] March, [facility] [address] [id number] [address] [place] [address], [place] [address] March, [facility] [address] [id number] [address] [place] [address], [place] [address] March, [facility] [address] [id number] [address] [place] [address], [place] [address] Feb, [facility] [address] [id number] [address] [place] [address], [place] [address] Feb, [facility] [address] [id number] [address] [place] [address], [place] [address] Jan, [facility] [address] [id number] [address] [place] [address], [place] [address] Jan, [facility] [address] [id number] [address] [place] [address], [place] [address] Jan, [facility] [facility] [address] [id number] [address] [place] [address], [place] [address] Jan, [facility] [address] [id number] [address] [place] [address], [place] [address] Jan, [facility] [address] [id number] [address] [place] [address], [place] [address] Jan, [facility] [address] [id number] [address] [place] [address], [place] [address] Jan, [facility] [address] [id number] [address] [place] [address], [place] [address] Jan, [facility] [address] [id number] [address] [place] [address], [place] [address] Dec, [facility] [address] [id number] [address] [place] [address], [place] [address] Dec, [facility] [address] [id number] [address] [place] [address], [place] [address] Dec, [facility] [address] [id number] [address] [place] [address], [place] [address] Dec, [facility] [address] [id number] [address] [place] [address], [place] [address] Nov, [facility] [address] [id number] [address] [place] [address], [place] [address] Nov, [facility] [address] [id number] [address] [place] [address], [place] [address] Oct, [facility] [address] [id number] [address] [place] [address], [place] [address] Oct, [facility] [address] [id number] [address] [place] [address], [place] [address] Oct, [facility] [address] [id number] [address] [place] [address], [place] [address] Oct, [facility] [address] [id number] [address] [place] [address], [place] [address] Sep, [facility] [address] [id number] [address] [place] [address], [place] [address] Sep, [facility] [address] [id number] [address] [place] [address], [place] [address] Sep, [facility] [address] [id number] [address] [place] [address], [place] [address] Sep, [facility] [address] [id number] [address] [place] [address], [place] [address] Aug, [facility] [address] [id number] [address] [place] [address], [place] [address] Aug, [facility] [address] [id number] [address] [place] [address], [place] [address] Aug, [facility] [address] [id number] [address] [place] [address], [place] [address] Jul, [facility] [address] [id number] [address] [place] [address], [place] [address] Jul, [facility] [address] [id number] [address] [place] [address], [place] [address] Jun, [facility] [address] [id number] [address] [place] [address], [place] [address] Jun, [facility] [address] [id number] [address] [place] [address], [place] [address] May, [facility] [address] [id number] [address] [place] [address], [place] [address] May, [facility] [address] [id number] [address] [place] [address], [place] [address] Apr, [facility] [address] [id number] [address] [place] [address], [place] [address] March, [facility] [address] [id number] [address] [place] [address], [place] [address] March, [facility] [address] [id number] [address] [place] [address], [place] [address] Feb, [facility] [address] [id number] [address] [place] [address], [place] [address] Jan, [facility] [address] [id number] [address] [place] [address], [place] [address] Jan, [facility] [address] [id number] [address] [place] [address], [place] [address] Dec, [facility] [address] [id number] [address] [place] [address], [place] [address] Dec, [facility] [address] [id number] [address] [place] [address], [place] [address] Nov, [facility] [address] [id number] [address] [place] [address], [place] [address] Nov, [facility] [address] [id number] [address] [place] [address], [place] [address] Nov, [facility] [address] [id number] [address] [place] [address], [place] [address] Nov, [facility] [address] [id number] [address] [place] [address], [place] [address] Nov, [facility] [address] [id number] [address] [place] [address], [place] [address] Oct, [facility] [address] [id number] [address] [place] [address], [place] [address] Oct, [facility] [address] [id number] [address] [place] [address], [place] [address] Oct, [facility] [address] [id number] [address] [place] [address], [place] [address] Oct, [facility] [address] [id number] [address] [place] [address], [place] [address] Oct, [facility] [address] [id number] [address] [place] [address], [place] [address] Oct, [facility] [address] [id number] [address] [place] [address], [place] [address] Oct, [facility] [address] [id number] [address] [place] [address], [place] [address] Oct, [facility] [address] [id number] [address] [place] [address], [place] [address] Sep, [facility] [address] [id number] [address] [place] [address], [place] [address] Sep, [facility] [address] [id number] [address] [place] [address], [place] [address] Sep, [facility] [address] [id number] [address] [place] [address], [place] [address] Aug, [facility] [address] [id number] [address] [place] [address], [place] [address] Aug, [facility] [address] [id number] [address] [place] [address], [place] [address] Aug, [facility] [address] [id number] [address] [place] [address], [place] [address] Aug, [facility] [address] [id number] [address] [place] [address], [place] [address] Aug, [facility] [address] [id number] [address] [place] [address], [place] [address] Jul, [facility] [address] [id number] [address] [place] [address], [place] [address] Jul, [facility] [address] [id number] [address] [place] [address], [place] [address] Jun, [facility] [address] [id number] [address] [place] [address], [place] [address] May, [facility] [address] [id number] [address] [place] [address], [place] [address] May, [facility] [address] [id number] [address] [place] [address], [place] [address] Apr, [facility] [address] [id number] [address] [place] [address], [place] [address] March, [facility] [address] [id number] [address] [place] [address], [place] [address] March, [facility] [address] [id number] [address] [place] [address], [place] [address] March, [facility] [address] [id number] [address] [place] [address], [place] [address] March, [facility] [address] [id number] [address] [place] [address], [place] [address] Feb, [facility] [address] [id number] [address] [place] [address], [place] [address] Feb, [facility] [address] [id number] [address] [place] [address], [place] [address] Jan, [facility] [address] [id number] [address] [place] [address], [place] [address] Dec, [facility] [address] [id number] [address] [place] [address], [place] [address] Dec, [facility] [address] [id number] [address] [place] [address], [place] [address] Dec, [facility] [address] [id number] [address] [place] [address], [place] [address] Nov, [facility] [address] [id number] [address] [place] [address], [place] [address] Nov, [facility] [address] [id number] [address] [place] [address], [place] [address] Nov, [facility] [address] [id number] [address] [place] [address] 14 Oct, 2011 [facility] [address] [facility] [id number] [address] [place] [address] Sep, [facility] [address] [facility] [id number] [address] [place] [address] Aug, [facility] [address] [facility] [id number] [address] [place] [address] Aug, [facility] [address] [facility] [id number] [address] [place] [address] May, [facility] [address] [facility] [id number] [address] [place] [address] Sep, [facility] [address] [facility] [id number] [address] [place] [address] Sep, IMMUNIZATIONS No Known Immunizations SOCIAL HISTORY Never Assessed REASON FOR VISIT EMR-[facility] PLAN OF CARE VITAL SIGNS MEDICATIONS Unknown Medications RESULTS No Results PROCEDURES No Known procedures INSTRUCTIONS MEDICATIONS ADMINISTERED No Known Medications MEDICAL (GENERAL) HISTORY Type Description Date Medical History bipolar Medical History adhd Medical History anxiety Surgical History No Surgical history information
--- OUTSIDE RECORDS SUMMARY | 2020-03-18 15:30 | XMS REPORT ---
Author Author Jose Cruz Mercer Doctor Organization [facility] Address Unknown Phone Unavailable Care Team Providers Care Folder Seamer Name Role Phone Migration, Doctor Unavailable Unavailable PROBLEMS Type Condition ICD9-CM Code QNO25-ZW Code Onset Dates Condition S tatus SNOMED Code Problem 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 Ac tive 59254250 Problem Encounter for long-term (current) use of other medications V58.69 Active 227605246 Problem Bipolar disorder, unspecified 296.80 Active 28407706 Problem Bipolar I disorder, most recent episode (or current) mixed, moderate 296.62 Active 727639768 Problem Bipolar disorder F31.9 Active 137 35901 Problem Intellectual disability F79 Active 44863672 Problem Generalized anxiety disorder 300.02 A ctive 90629889 Problem Attention-deficit hyperactiv ity disorder, predominantly inattentive type F90.0 Active 89965622 Problem 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 314.00 Active 16856268 Problem Intermittent explosive disorder F63.81 Active 29023112 Problem Attention deficit hyperactivity disorder F90.9 Active 467592610 Problem Bipolar disorder, currently in remission, most recent episode unspecified F31.70 Active 72302832 Problem Moderate intellectual disability F71 Active 51064647 ALLERGIES No Information ENCOUNTERS Encounter Location Date Diagnosis [place] [id number] [facility] [id number] [address] [place] [phone] Feb, Bipolar disorder F31.9 ; Att ention-deficit hyperactivity disorder, predominantly inattentive type F90.0 and Moderate intellectual disability F71 [facility] [address] [facility] [id number] [address] [place] [phone] Jan, Bipolar disorder F31.9 [facility] [address] [facility] [id number] [address] [place] [phone] Jan, Bipolar disorder F31.9 [facility] [address] [facility] [id number] [address] [place] [address] Jan, Dental examination Z01.20 ; 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 status requiring routine preventive dental care K08.9 and Caries K02.9 [facility] [address] [id number] [address] [place] [phone] Jan, [facility] [address] [id number] [address] [place] [address] Jan, Bipolar disorder F31.9 ; Mod erate intellectual disability F71 and Attention-deficit hyperactivity disorder, predominantly inattentive type F90.0 [facility] [address] [id number] [address] [place] [phone] Dec, Bipolar disorder, currently in remission, most recent episode unspecified F31.70 [facility] [address] [id number] [address] [place] [phone] Dec, Bipolar disorder, currently in remission, most recent episode unspecified F31.70 [facility] [address] [id number] [address] [place] [id number] Dec, Bipolar disorder, currently in remission, most recent episode unspecified F31.70 [facility] [address] [id number] [address] [place] [address] Dec, [facility] [address] [id number] [address] [place] [phone] Dec, Bipolar disorder, currently in remission, most recent episode unspecified F31.70 [facility] [address] [id number] [address] [place] [address] Nov, Bipolar disorder, currently in remission, most recent episode unspecified F31.70 [facility] [address] [id number] [address] [place] [address] Nov, [facility] [address] [id number] [address] [place] [address] Nov, [facility] [address] [id number] [address] [place] [address] Nov, Bipolar disorder, currently in remission, most recent episode unspecified F31.70 [facility] [address] [id number] [address] [place] [phone] Nov, Bipolar disorder, currently in remission, most recent episode unspecified F31.70 [facility] [address] [id number] [address] [place] [address] Oct, High risk medication use Z79 .899 ; Bipolar disorder F31.9 ; Moderate intellectual disability F71 and Attention-deficit hyperactivity disorder, predominantly inattentive type F90.0 [facility] [address] [id number] [address] [place] [phone] Oct, [facility] [address] [id number] [address] [place] [phone] Sep, Bipolar disorder, currently in remission, most recent episode unspecified F31.70 [facility] [address] [id number] [address] [place] [id number] Sep, 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 stat us requiring routine preventive dental care K08.9 and Arrested dental caries K02.3 [facility] [address] [id number] [address] [place] [address] Sep, Bipolar disorder, currently in remission, most recent episode unspecified F31.70 ; Moderate intellectual disability F71 and Attention-deficit hyperactivity disorder, predominantly inattentive type F90.0 [facility] [address] [id number] [address] [place] [phone] Sep, Bipolar disorder, currently in remission, most recent episode unspecified F31.70 [facility] [address] [id number] [address] [place] [phone] Aug, Bipolar disorder, currently in remission, most recent episode unspecified F31.70 [facility] [address] [id number] [address] [place] [id number] Jul, Bipolar disorder, currently in remission, most recent episode unspecified F31.70 [facility] [address] [id number] [address] [place] [address] Jul, Bipolar disorder, currently in remission, most recent episode unspecified F31.70 [facility] [address] [id number] [address] [place] [address] Jun, [facility] [address] [id number] [address] [place] [phone] Jun, Bipolar disorder, currently in remission, most recent episode unspecified F31.70 [facility] [address] [id number] [address] [place] [address] [id number] 08 Jun, 2018 Dental examination Z01.20 an d Dental caries K02.9 [facility] [address] [id number] [address] [place] [phone] May, Bipolar disorder, currently in remission, most recent episode unspecified F31.70 [facility] [address] [id number] [address] [place] [phone] May, Bipolar disorder, currently in remission, most recent episode unspecified F31.70 [facility] [address] [id number] [address] [place] [address] May, Bipolar disorder, currently in remission, most recent episode unspecified F31.70 ; Moderate intellectual disability F71 and Attention-deficit hyperactivity disorder, predominantly inattentive type F90.0 [facility] [address] [id number] [address] [place] [address] Apr, Bipolar disorder, unspecifie d F31.9 [facility] [address] [id number] [address] [place] [phone] Apr, [facility] [address] [id number] [address] [place] [phone] Apr, [facility] [address] [id number] [address] [place] [phone] Apr, [facility] [address] [id number] [address] [place] [phone] March, [facility] [address] [id number] [address] [place] [address] March, Bipolar disorder, currently in remission, most recent episode unspecified F31.70 ; Moderate intellectual disability F71 and Attention-deficit hyperactivity disorder, predominantly inattentive type F90.0 [facility] [address] [id number] [address] [place] [phone] Feb, [facility] [address] [id number] [address] [place] [address] [id number] Feb, Dental examination Z01.20 [facility] [address] [id number] [address] [place] [phone] Jan, [facility] [address] [id number] [address] [place] [phone] Jan, [facility] [address] [id number] [address] [place] [phone] Dec, [facility] [address] [id number] [address] [place] [phone] Nov, [facility] [address] [id number] [address] [place] [id number] Nov, Encounter for dental exam an d cleaning w/o abnormal findings Z01.20 [facility] [address] [id number] [address] [place] [id number] Nov, Dental examination Z01.20 [facility] [address] [id number] [address] [place] [phone] Oct, [facility] [address] [id number] [address] [place] [phone] Oct, Bipolar disorder, currently in remission, most recent episode unspecified F31.70 ; Moderate intellectual disability F71 and Attention-deficit hyperactivity disorder, predominantly inattentive type F90.0 [facility] [address] [id number] [address] [place] [phone] Sep, [facility] [address] [id number] [address] [place] [phone] Sep, [facility] [address] [facility] [id number] [address] [place] [phone] Aug, [facility] [address] [facility] [id number] [address] [place] [phone] Aug, Attention-deficit hyperactiv ity disorder, predominantly inattentive type F90.0 ; Moderate intellectual disability F71 and Bipolar disorder F31.9 [facility] [address] [id number] [address] [place] [address] [id number] 11 Jul, 2017 Dental examination Z01.20 an d Dental caries K02.9 [facility] [address] [id number] [address] [place] [phone] Jul, [facility] [address] [facility] [id number] [address] [place] [phone] Jun, Bipolar disorder F31.9 ; Att ention-deficit hyperactivity disorder, predominantly inattentive type F90.0 and Moderate intellectual disability F71 [facility] [address] [facility] [id number] [address] [place] [phone] Jun, [facility] [address] [facility] [id number] [address] [place] [phone] May, [facility] [address] [facility] [id number] [address] [place] [phone] Apr, [facility] [address] [facility] [id number] [address] [place] [phone] March, Intermittent explosive disor jocelyn F63.81 ; Attention deficit hyperactivity disorder F90.9 and Bipolar disorder F31.9 [facility] [address] [id number] [address] [place] [phone] Feb, [facility] [address] [facility] [id number] [address] [place] [phone] Jan, [facility] [address] [facility] [id number] [address] [place] [phone] 13 Dec, 2016 Encounter for immunization Z 23 [facility] [address] [facility] [id number] [address] [place] [phone] Dec, Intermittent explosive disor jocelyn F63.81 ; Attention deficit hyperactivity disorder F90.9 and Bipolar disorder, currently in remission, most recent episode unspecified F31.70 [facility] [address] [id number] [address] [place] [phone] Nov, [facility] [address] [facility] [id number] [address] [place] [phone] Oct, [facility] [address] [facility] [id number] [address] [place] [phone] Oct, [facility] [address] [id number] [address] [place] [address] [id number] Oct, Dental examination Z01.20 [facility] [address] [facility] [id number] [address] [place] [phone] Sep, [facility] [address] [facility] [id number] [address] [place] [phone] Sep, [facility] [address] [facility] [id number] [address] [place] [address] Sep, Intermittent explosive disor jocelyn F63.81 ; Bipolar disorder F31.9 and Attention deficit hyperactivity disorder F90.9 [facility] [address] [facility] [id number] [address] [place] [phone] Aug, [facility] [address] [facility] [id number] [address] [place] [phone] Aug, [facility] [address] [facility] [id number] [address] [place] [phone] Aug, [facility] [address] [facility] [id number] [address] [place] [phone] Aug, Attention deficit hyperactiv ity disorder F90.9 [facility] [address] [id number] [address] [place] [phone] Jul, [facility] [address] [facility] [id number] [address] [place] [phone] Jun, [facility] [address] [id number] [address] [place] [phone] May, [facility] [address] [id number] [address] [place] [phone] Apr, [facility] [address] [id number] [address] [place] [address] Apr, Bipolar disorder F31.9 ; Att ention deficit hyperactivity disorder F90.9 and Intermittent explosive disorder F63.81 [facility] [address] [id number] [address] [place] [phone] March, [facility] [address] [id number] [address] [place] [phone] Feb, [facility] [address] [id number] [address] [place] [phone] Feb, [facility] [address] [id number] [address] [place] [phone] Jan, [facility] [address] [id number] [address] [place] [phone] Jan, [facility] [address] [id number] [address] [place] [phone] Dec, [facility] [address] [id number] [address] [place] [phone] Nov, [facility] [address] [id number] [address] [place] [phone] Nov, [facility] [address] [id number] [address] [place] [phone] Nov, Attention deficit hyperactiv ity disorder F90.9 ; Intermittent explosive disorder F63.81 and Bipolar disorder F31.9 [facility] [address] [id number] [address] [place] [phone] Oct, [facility] [address] [id number] [address] [place] [phone] Oct, [facility] [address] [facility] [id number] [address] [place] [phone] Sep, [facility] [address] [facility] [id number] [address] [place] [phone] Aug, [facility] [address] [facility] [id number] [address] [place] [phone] Jul, [facility] [address] [facility] [id number] [address] [place] [phone] Jul, [facility] [address] [facility] [id number] [address] [place] [address] Jul, Anxiety, generalized 300.02 ; Bipolar disorder, unspecified 296.80 ; 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.00 ; 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 and Impulse control disorder, unspecified 312.30 [facility] [address] [facility] [id number] [address] [place] [address] Jul, [facility] [address] [facility] [id number] [address] [place] [id number] Jun, [facility] [address] [facility] [id number] [address] [place] [phone] May, [facility] [address] [facility] [id number] [address] [place] [address] Apr, [facility] [address] [facility] [id number] [address] [place] [id number] Apr, Bipolar disorder, unspecifie d 296.80 ; Generalized anxiety disorder 300.02 and 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.00 [facility] [address] [facility] [id number] [address] [place] [phone] Apr, [facility] [address] [facility] [id number] [address] [place] [phone] March, [facility] [address] [facility] [id number] [address] [place] [phone] March, [facility] [address] [id number] [address] [place] [address], [place] [address] March, [facility] [address] [id number] [address] [place] [address], [place] [address] March, [facility] [address] [id number] [address] [place] [address], [place] [address] Feb, [facility] [address] [id number] [address] [place] [address], [place] [address] Feb, [facility] [address] [id number] [address] [place] [address], [place] [address] Jan, [facility] [address] [id number] [address] [place] [address], [place] [address] Jan, [facility] [address] [id number] [address] [place] [address], [place] [address] Jan, [facility] [address] [id number] [address] [place] [address], [place] [address] Jan, [facility] [address] [id number] [address] [place] [address], [place] [address] Jan, [facility] [address] [id number] [address] [place] [address], [place] [address] Dec, [facility] [address] [id number] [address] [place] [address], [place] [address] Dec, [facility] [address] [id number] [address] [place] [address], [place] [id number] Nov, [facility] [address] [id number] [address] [place] [address], [place] [address] Nov, [facility] [address] [id number] [address] [place] [address], [place] [address] Nov, [facility] [address] [id number] [address] [place] [address], [place] [address] Oct, [facility] [address] [id number] [address] [place] [address], [place] [address] Oct, [facility] [address] [id number] [address] [place] [address], [place] [address] Oct, [facility] [address] [id number] [address] [place] [address], [place] [address] Oct, [facility] [address] [id number] [address] [place] [address], [place] [address] Oct, [facility] [address] [id number] [address] [place] [address], [place] [address] Oct, [facility] [address] [id number] [address] [place] [address], [place] [address] Sep, [facility] [address] [id number] [address] [place] [address], [place] [address] Sep, [facility] [address] [id number] [address] [place] [address], [place] [address] Sep, [facility] [address] [id number] [address] [place] [address], [place] [id number] Aug, [facility] [address] [id number] [address] [place] [address], [place] [id number] Aug, [facility] [address] [id number] [address] [place] [address], [place] [id number] Jul, [facility] [address] [id number] [address] [place] [address], [place] [id number] Jul, [facility] [address] [id number] [address] [place] [address], [place] [id number] Jun, [facility] [address] [id number] [address] [place] [address], [place] [id number] Jun, [facility] [address] [id number] [address] [place] [address], [place] [address] Jun, [facility] [address] [id number] [address] [place] [address], [place] [id number] Jun, [facility] [address] [id number] [facility] [place] [id number] 17 May, 2014 [facility] [address] [id number] [facility] [place] [address] May, [facility] [address] [id number] [facility] [place] [address] May, [facility] [address] [id number] [address] [place] [address] Apr, [facility] [address] [id number] [facility] [place] [address] Apr, [facility] [address] [id number] [address] [place] [address], [place] [address] Apr, [facility] [address] [id number] [address] [place] [address], [place] [address] Apr, [facility] [address] [id number] [address] [place] [address], [place] [address] March, [facility] [address] [id number] [address] [place] [address], [place] [address] March, [facility] [address] [id number] [address] [place] [address], [place] [address] March, [facility] [address] [id number] [address] [place] [address], [place] [address] March, [facility] [address] [id number] [address] [place] [address], [place] [address] Feb, [facility] [address] [id number] [address] [place] [address], [place] [address] Feb, [facility] [address] [id number] [address] [place] [address], [place] [address] Jan, [facility] [address] [id number] [address] [place] [address], [place] [address] Jan, [facility] [address] [id number] [address] [place] [address], [place] [address] Jan, [facility] [address] [id number] [facility] [place] [address] Jan, [facility] [address] [id number] [address] [place] [address], [place] [address] Jan, [facility] [address] [id number] [address] [place] [address], [place] [address] Jan, [facility] [address] [id number] [address] [place] [address], [place] [address] Jan, [facility] [address] [id number] [address] [place] [address], [place] [address] Jan, [facility] [address] [id number] [address] [place] [address], [place] [address] Dec, [facility] [address] [id number] [address] [place] [address], [place] [address] Dec, [facility] [address] [id number] [address] [place] [address], [place] [address] Dec, [facility] [address] [id number] [address] [place] [address], [place] [address] Dec, [facility] [address] [id number] [address] [place] [address], [place] [address] Nov, [facility] [address] [id number] [address] [place] [address], [place] [address] Nov, [facility] [address] [id number] [address] [place] [address], [place] [address] Oct, [facility] [address] [id number] [address] [place] [address], [place] [address] Oct, [facility] [address] [id number] [address] [place] [address], [place] [address] Oct, [facility] [address] [id number] [address] [place] [address], [place] [address] Oct, [facility] [address] [id number] [address] [place] [address], [place] [address] Sep, [facility] [address] [id number] [address] [place] [address], [place] [address] Sep, [facility] [address] [id number] [address] [place] [address], [place] [address] Sep, [facility] [address] [id number] [address] [place] [address], [place] [address] Sep, [facility] [address] [id number] [address] [place] [address], [place] [address] Aug, [facility] [address] [id number] [address] [place] [address], [place] [address] Aug, [facility] [address] [id number] [address] [place] [address], [place] [address] Aug, [facility] [address] [id number] [address] [place] [address], [place] [address] Jul, [facility] [address] [id number] [address] [place] [address], [place] [address] Jul, [facility] [address] [id number] [address] [place] [address], [place] [address] Jun, [facility] [address] [id number] [address] [place] [address], [place] [address] Jun, [facility] [address] [id number] [address] [place] [address], [place] [address] May, [facility] [address] [id number] [address] [place] [address], [place] [address] May, [facility] [address] [id number] [address] [place] [address], [place] [address] Apr, [facility] [address] [id number] [address] [place] [address], [place] [address] March, [facility] [address] [id number] [address] [place] [address], [place] [address] March, [facility] [address] [id number] [address] [place] [address], [place] [address] Feb, [facility] [address] [id number] [address] [place] [address], [place] [address] Jan, [facility] [address] [id number] [address] [place] [address], [place] [address] Jan, [facility] [address] [id number] [address] [place] [address], [place] [address] Dec, [facility] [address] [id number] [address] [place] [address], [place] [address] Dec, [facility] [address] [id number] [address] [place] [address], [place] [address] Nov, [facility] [address] [id number] [address] [place] [address], [place] [address] Nov, [facility] [address] [id number] [address] [place] [address], [place] [address] Nov, [facility] [address] [id number] [address] [place] [address], [place] [address] Nov, [facility] [address] [id number] [address] [place] [address], [place] [address] Nov, [facility] [address] [id number] [address] [place] [address], [place] [address] Oct, [facility] [address] [id number] [address] [place] [address], [place] [address] Oct, [facility] [address] [id number] [address] [place] [address], [place] [address] Oct, [facility] [address] [id number] [address] [place] [address], [place] [address] Oct, [facility] [address] [id number] [address] [place] [address], [place] [address] Oct, [facility] [address] [id number] [address] [place] [id number] 05 Oct, 2012 [facility] [address] [id number] [address] [place] [address], [place] [address] Oct, [facility] [address] [id number] [address] [place] [address], [place] [address] Oct, [facility] [address] [id number] [address] [place] [address], [place] [address] Sep, [facility] [address] [id number] [address] [place] [address], [place] [address] Sep, [facility] [address] [id number] [address] [place] [address], [place] [address] Sep, [facility] [address] [id number] [address] [place] [address], [place] [address] Aug, [facility] [address] [id number] [address] [place] [address], [place] [address] Aug, [facility] [address] [id number] [address] [place] [address], [place] [address] Aug, [facility] [address] [id number] [address] [place] [address], [place] [address] Aug, [facility] [address] [id number] [address] [place] [address], [place] [address] Aug, [facility] [address] [id number] [address] [place] [address], [place] [address] Jul, [facility] [address] [id number] [address] [place] [address], [place] [address] Jul, [facility] [address] [id number] [address] [place] [address], [place] [address] Jun, [facility] [address] [id number] [address] [place] [address], [place] [address] May, [facility] [address] [id number] [address] [place] [address], [place] [address] May, [facility] [address] [id number] [address] [place] [address], [place] [address] Apr, [facility] [address] [id number] [address] [place] [address], [place] [address] March, [facility] [address] [id number] [address] [place] [address], [place] [address] March, [facility] [address] [id number] [address] [place] [address], [place] [address] March, [facility] [address] [id number] [address] [place] [address], [place] [address] March, [facility] [address] [id number] [address] [place] [address], [place] [address] Feb, [facility] [address] [id number] [address] [place] [address], [place] [address] Feb, [facility] [address] [id number] [address] [place] [address], [place] [address] Jan, [facility] [address] [id number] [address] [place] [address], [place] [address] Dec, [facility] [address] [id number] [address] [place] [address], [place] [address] Dec, [facility] [address] [id number] [address] [place] [address], [place] [address] Dec, [facility] [address] [id number] [address] [place] [address], [place] [address] Nov, [facility] [address] [id number] [address] [place] [address], [place] [address] Nov, [facility] [address] [id number] [address] [place] [address], [place] [address] Nov, [facility] [address] [id number] [address] [place] [address], [place] [address] Oct, [facility] [address] [id number] [address] [address] Sep, [facility] [address] [facility] [id number] [address] [place] [id number] Aug, [facility] [address] [facility] [id number] [address] [place] [address] Aug, [facility] [address] [facility] [id number] [address] [place] [address] May, [facility] [address] [facility] [id number] [address] [place] [address] Sep, [facility] [address] [facility] [id number] [address] [place] [address] Sep, IMMUNIZATIONS No Known Immunizations SOCIAL HISTORY Never Assessed REASON FOR VISIT [facility] PLAN OF CARE VITAL SIGNS MEDICATIONS No Known Medications RESULTS No Results PROCEDURES No Known procedures INSTRUCTIONS MEDICATIONS ADMINISTERED No Known Medications MEDICAL (GENERAL) HISTORY Type Description Date Medical History bipolar Medical History adhd Medical History anxiety Surgical History No Surgical history information
--- OUTSIDE RECORDS SUMMARY | 2020-03-18 15:30 | XMS REPORT ---
Author Author Jose Cruz Mercer Doctor Organization [facility] Address Unknown Phone Unavailable Care Team Providers Care Acid Patroller Name Role Phone Migration, Doctor Unavailable Unavailable PROBLEMS Type Condition ICD9-CM Code [id number] Code Onset Dates Condition S tatus SNOMED Code Problem 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 Ac tive 90246725 Problem Encounter for long-term (current) use of other medications V58.69 Active 325925474 Problem Bipolar disorder, unspecified 296.80 Active 64577688 Problem Bipolar I disorder, most recent episode (or current) mixed, moderate 296.62 Active 313630185 Problem Bipolar disorder F31.9 Active 137 99786 Problem Intellectual disability F79 Active 80058966 Problem Generalized anxiety disorder 300.02 A ctive 46354887 Problem Attention-deficit hyperactiv ity disorder, predominantly inattentive type F90.0 Active 07194522 Problem 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 314.00 Active 45898317 Problem Intermittent explosive disorder F63.81 Active 01516025 Problem Attention deficit hyperactivity disorder F90.9 Active 004738952 Problem Bipolar disorder, currently in remission, most recent episode unspecified F31.70 Active 99799659 Problem Moderate intellectual disability F71 Active [id number] ALLERGIES No Information ENCOUNTERS Encounter Location Date Diagnosis [place] [id number] [facility] [id number] [address] [place] [id number] Feb, Bipolar disorder F31.9 ; Att ention-deficit hyperactivity disorder, predominantly inattentive type F90.0 and Moderate intellectual disability F71 [facility] [address] [facility] [id number] [address] [place] [id number] Jan, Bipolar disorder F31.9 [facility] [address] [facility] [id number] [address] [place] [address] Jan, Bipolar disorder F31.9 [facility] [address] [facility] [id number] [address] [place] [phone] Jan, Dental examination Z01.20 ; 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 status requiring routine preventive dental care K08.9 and Caries K02.9 [facility] [address] [id number] [address] [place] [id number] Jan, [facility] [address] [id number] [address] [place] [id number] Jan, Bipolar disorder F31.9 ; Mod erate intellectual disability F71 and Attention-deficit hyperactivity disorder, predominantly inattentive type F90.0 [facility] [address] [id number] [address] [place] [id number] Dec, Bipolar disorder, currently in remission, most recent episode unspecified F31.70 [facility] [address] [id number] [address] [place] [address] Dec, Bipolar disorder, currently in remission, most recent episode unspecified F31.70 [facility] [address] [id number] [address] [place] [phone] Dec, Bipolar disorder, currently in remission, most recent episode unspecified F31.70 [facility] [address] [id number] [address] [place] [id number] Dec, [facility] [address] [id number] [address] [place] [id number] Dec, Bipolar disorder, currently in remission, most recent episode unspecified F31.70 [facility] [address] [id number] [address] [place] [id number] Nov, Bipolar disorder, currently in remission, most recent episode unspecified F31.70 [facility] [address] [id number] [address] [place] [phone] Nov, [facility] [address] [id number] [address] [place] [phone] Nov, [facility] [address] [id number] [address] [place] [phone] Nov, Bipolar disorder, currently in remission, most recent episode unspecified F31.70 [facility] [address] [id number] [address] [place] [phone] Nov, Bipolar disorder, currently in remission, most recent episode unspecified F31.70 [facility] [address] [id number] [address] [place] [address] Oct, High risk medication use Z79 .899 ; Bipolar disorder F31.9 ; Moderate intellectual disability F71 and Attention-deficit hyperactivity disorder, predominantly inattentive type F90.0 [facility] [address] [id number] [address] [place] [address] Oct, [facility] [address] [id number] [address] [place] [phone] Sep, Bipolar disorder, currently in remission, most recent episode unspecified F31.70 [facility] [address] [id number] [address] [place] [id number] Sep, 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 stat us requiring routine preventive dental care K08.9 and Arrested dental caries K02.3 [facility] [address] [id number] [address] [place] [phone] Sep, Bipolar disorder, currently in remission, most recent episode unspecified F31.70 ; Moderate intellectual disability F71 and Attention-deficit hyperactivity disorder, predominantly inattentive type F90.0 [facility] [address] [id number] [address] [place] [id number] Sep, Bipolar disorder, currently in remission, most recent episode unspecified F31.70 [facility] [address] [id number] [address] [place] [phone] Aug, Bipolar disorder, currently in remission, most recent episode unspecified F31.70 [facility] [address] [id number] [address] [place] [id number] Jul, Bipolar disorder, currently in remission, most recent episode unspecified F31.70 [facility] [address] [id number] [address] [place] [id number] Jul, Bipolar disorder, currently in remission, most recent episode unspecified F31.70 [facility] [address] [id number] [address] [place] [phone] Jun, [facility] [address] [id number] [address] [place] [phone] Jun, Bipolar disorder, currently in remission, most recent episode unspecified F31.70 [facility] [address] [id number] [address] [place] [address] [id number] Jun, 2018 Dental examination Z01.20 an d Dental caries K02.9 [facility] [address] [id number] [address] [place] [phone] May, Bipolar disorder, currently in remission, most recent episode unspecified F31.70 [facility] [address] [id number] [address] [place] [id number] May, Bipolar disorder, currently in remission, most recent episode unspecified F31.70 [facility] [address] [id number] [address] [place] [id number] May, Bipolar disorder, currently in remission, most recent episode unspecified F31.70 ; Moderate intellectual disability F71 and Attention-deficit hyperactivity disorder, predominantly inattentive type F90.0 [facility] [address] [id number] [address] [place] [phone] Apr, Bipolar disorder, unspecifie d F31.9 [facility] [address] [id number] [address] [place] [id number] Apr, [facility] [address] [id number] [address] [place] [id number] Apr, [facility] [address] [id number] [address] [place] [phone] Apr, [facility] [address] [id number] [address] [place] [phone] March, [facility] [address] [id number] [address] [place] [phone] March, Bipolar disorder, currently in remission, most recent episode unspecified F31.70 ; Moderate intellectual disability F71 and Attention-deficit hyperactivity disorder, predominantly inattentive type F90.0 [facility] [address] [id number] [address] [place] [phone] Feb, [facility] [address] [id number] [address] [place] [address] [id number] Feb, Dental examination Z01.20 [facility] [address] [id number] [address] [place] [phone] Jan, [facility] [address] [id number] [address] [place] [phone] Jan, [facility] [address] [id number] [address] [place] [phone] Dec, [facility] [address] [id number] [address] [place] [id number] Nov, [facility] [address] [id number] [address] [place] [address] [id number] Nov, Dental examination Z01.20 [facility] [address] [id number] [address] [place] [address] [id number] Nov, Encounter for dental exam an d cleaning w/o abnormal findings Z01.20 [facility] [address] [id number] [address] [place] [phone] Oct, [facility] [address] [id number] [address] [place] [id number] Oct, Bipolar disorder, currently in remission, most recent episode unspecified F31.70 ; Moderate intellectual disability F71 and Attention-deficit hyperactivity disorder, predominantly inattentive type F90.0 [facility] [address] [id number] [address] [place] [id number] Sep, [facility] [address] [id number] [address] [place] [phone] Sep, [facility] [address] [facility] [id number] [address] [place] [phone] Aug, [facility] [address] [facility] [id number] [address] [place] [phone] Aug, Attention-deficit hyperactiv ity disorder, predominantly inattentive type F90.0 ; Moderate intellectual disability 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 and Bipolar disorder F31.9 [facility] [address] [id number] [address] [place] [address] [id number] Jul, 2017 Dental examination Z01.20 an d Dental caries K02.9 [facility] [address] [id number] [address] [place] [id number] Jul, [facility] [address] [facility] [id number] [address] [place] [phone] Jun, Bipolar disorder F31.9 ; Att ention-deficit hyperactivity disorder, predominantly inattentive type F90.0 and Moderate intellectual disability F71 [facility] [address] [facility] [id number] [address] [place] [phone] Jun, [facility] [address] [facility] [id number] [address] [place] [phone] May, [facility] [address] [facility] [id number] [address] [place] [phone] Apr, [facility] [address] [facility] [id number] [address] [place] [phone] March, Intermittent explosive disor jocelyn F63.81 ; Attention deficit hyperactivity disorder F90.9 and Bipolar disorder F31.9 [facility] [address] [id number] [address] [place] [id number] Feb, [facility] [address] [facility] [id number] [address] [place] [phone] Jan, [facility] [address] [facility] [id number] [address] [place] [phone] 13 Dec, 2016 Encounter for immunization Z 23 [facility] [address] [facility] [id number] [address] [place] [phone] Dec, Intermittent explosive disor jocelyn F63.81 ; Attention deficit hyperactivity disorder F90.9 and Bipolar disorder, currently in remission, most recent episode unspecified F31.70 [facility] [address] [id number] [address] [place] [phone] Nov, [facility] [address] [facility] [id number] [address] [place] [phone] Oct, [facility] [address] [facility] [id number] [address] [place] [phone] Oct, [facility] [address] [id number] [address] [place] [address] [id number] Oct, Dental examination Z01.20 [facility] [address] [facility] [id number] [address] [place] [phone] Sep, [facility] [address] [facility] [id number] [address] [place] [phone] Sep, [facility] [address] [facility] [id number] [address] [place] [id number] Sep, Intermittent explosive disor jocelyn F63.81 ; Bipolar disorder F31.9 and Attention deficit hyperactivity disorder F90.9 [facility] [address] [facility] [id number] [address] [place] [phone] Aug, [facility] [address] [facility] [id number] [address] [place] [phone] Aug, [facility] [address] [facility] [id number] [address] [place] [id number] Aug, [facility] [address] [facility] [id number] [address] [place] [phone] Aug, Attention deficit hyperactiv ity disorder F90.9 [facility] [address] [id number] [address] [place] [phone] Jul, [facility] [address] [facility] [id number] [address] [place] [id number] Jun, [facility] [address] [id number] [address] [place] [id number] May, [facility] [address] [id number] [address] [place] [id number] Apr, [facility] [address] [id number] [address] [place] [id number] Apr, Bipolar disorder F31.9 ; Att ention deficit hyperactivity disorder F90.9 and Intermittent explosive disorder F63.81 [facility] [address] [id number] [address] [place] [id number] March, [facility] [address] [id number] [address] [place] [id number] Feb, [facility] [address] [id number] [address] [place] [phone] Feb, [facility] [address] [id number] [address] [place] [phone] Jan, [facility] [address] [id number] [address] [place] [id number] Jan, [facility] [address] [id number] [address] [place] [phone] Dec, [facility] [address] [id number] [address] [place] [phone] Nov, [facility] [address] [id number] [address] [place] [phone] Nov, [facility] [address] [id number] [address] [place] [phone] Nov, Attention deficit hyperactiv ity disorder F90.9 ; Intermittent explosive disorder F63.81 and Bipolar disorder F31.9 [facility] [address] [id number] [address] [place] [phone] Oct, [facility] [address] [id number] [address] [place] [id number] Oct, [facility] [address] [facility] [id number] [address] [place] [phone] Sep, [facility] [address] [facility] [id number] [address] [place] [phone] Aug, [facility] [address] [facility] [id number] [address] [place] [phone] Jul, [facility] [address] [facility] [id number] [address] [place] [phone] Jul, [facility] [address] [facility] [id number] [address] [place] [phone] Jul, Anxiety, generalized 300.02 ; Bipolar disorder, unspecified 296.80 ; 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.00 ; 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 and Impulse control disorder, unspecified 312.30 [facility] [address] [facility] [id number] [address] [place] [phone] Jul, [facility] [address] [facility] [id number] [address] [place] [id number] Jun, [facility] [address] [facility] [id number] [address] [place] [phone] May, [facility] [address] [facility] [id number] [address] [place] [id number] Apr, [facility] [address] [facility] [id number] [address] [place] [id number] Apr, Bipolar disorder, unspecifie d 296.80 ; Generalized anxiety disorder 300.02 and 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.00 [facility] [address] [facility] [id number] [address] [place] [id number] Apr, [facility] [address] [facility] [id number] [address] [place] [phone] March, [facility] [address] [facility] [id number] [address] [place] [phone] March, [facility] [address] [id number] [address] [place] [address], [place] [address] March, [facility] [address] [id number] [address] [place] [address], [place] [address] March, [facility] [address] [id number] [address] [place] [address], [place] [address] Feb, [facility] [address] [id number] [address] [place] [address], [place] [address] Feb, [facility] [address] [id number] [address] [place] [address], [place] [address] Jan, [facility] [address] [id number] [address] [place] [address], [place] [address] Jan, [facility] [address] [id number] [address] [place] [address], [place] [address] Jan, [facility] [address] [id number] [address] [place] [address], [place] [address] Jan, [facility] [address] [id number] [address] [place] [address], [place] [address] Jan, [facility] [address] [id number] [address] [place] [address], [place] [address] Dec, [facility] [address] [id number] [address] [place] [address], [place] [address] Dec, [facility] [address] [id number] [address] [place] [address], [place] [address] Nov, [facility] [address] [id number] [address] [place] [address], [place] [address] Nov, [facility] [address] [id number] [address] [place] [address], [place] [address] Nov, [facility] [address] [id number] [address] [place] [address], [place] [address] Oct, [facility] [address] [id number] [address] [place] [address], [place] [address] Oct, [facility] [address] [id number] [address] [place] [address], [place] [address] Oct, [facility] [address] [id number] [address] [place] [address], [place] [address] Oct, [facility] [address] [id number] [address] [place] [address], [place] [address] Oct, [facility] [address] [id number] [address] [place] [address], [place] [address] Oct, [facility] [address] [id number] [address] [place] [address], [place] [address] Sep, [facility] [address] [id number] [address] [place] [address], [place] [address] Sep, [facility] [address] [id number] [address] [place] [address], [place] [address] Sep, [facility] [address] [id number] [address] [place] [address], [place] [address] Aug, [facility] [address] [id number] [address] [place] [address], [place] [address] Aug, [facility] [address] [id number] [address] [place] [address], [place] [address] Jul, [facility] [address] [id number] [address] [place] [address], [place] [address] Jul, [facility] [address] [id number] [address] [place] [address], [place] [address] Jun, [facility] [address] [id number] [address] [place] [address], [place] [address] Jun, [facility] [address] [id number] [address] [place] [address], [place] [address] Jun, [facility] [address] [id number] [address] [place] [address], [place] [address] Jun, [facility] [address] [id number] [facility] [place] [address] 17 May, 2014 [facility] [address] [id number] [facility] [place] [address] May, [facility] [address] [id number] [facility] [place] [address] May, [facility] [address] [id number] [facility] [place] [address] Apr, [facility] [address] [id number] [facility] [place] [address] Apr, [facility] [address] [id number] [address] [place] [address], [place] [address] Apr, [facility] [address] [id number] [address] [place] [address], [place] [id number] Apr, [facility] [address] [id number] [address] [place] [address], [place] [id number] March, [facility] [address] [id number] [address] [place] [address], [place] [id number] March, [facility] [address] [id number] [address] [place] [address], [place] [id number] March, [facility] [address] [id number] [address] [place] [address], [place] [address] March, [facility] [address] [id number] [address] [place] [address], [place] [address] Feb, [facility] [address] [id number] [address] [place] [address], [place] [address] Feb, [facility] [address] [id number] [address] [place] [address], [place] [id number] Jan, [facility] [address] [address] [id number] [address] [place] [address], [place] [address] Jan, [facility] [address] [id number] [address] [place] [address], [place] [address] Jan, [facility] [address] [id number] [facility] [place] [address] Jan, [facility] [address] [id number] [address] [place] [address], [place] [address] Jan, [facility] [address] [id number] [address] [place] [address], [place] [address] Jan, [facility] [address] [id number] [address] [place] [address], [place] [address] Jan, [facility] [address] [id number] [address] [place] [address], [place] [address] Jan, [facility] [address] [id number] [address] [place] [address], [place] [address] Dec, [facility] [address] [id number] [address] [place] [address], [place] [address] Dec, [facility] [address] [id number] [address] [place] [address], [place] [address] Dec, [facility] [address] [id number] [address] [place] [address], [place] [address] Dec, [facility] [address] [id number] [address] [place] [address], [place] [address] Nov, [facility] [address] [id number] [address] [place] [address], [place] [address] Nov, [facility] [address] [id number] [address] [place] [address], [place] [address] Oct, [facility] [address] [id number] [address] [place] [address], [place] [address] Oct, [facility] [address] [id number] [address] [place] [address], [place] [address] Oct, [facility] [address] [id number] [address] [place] [address], [place] [address] Oct, [facility] [address] [id number] [address] [place] [address], [place] [address] Sep, [facility] [address] [id number] [address] [place] [address], [place] [address] Sep, [facility] [address] [id number] [address] [place] [address], [place] [address] Sep, [facility] [address] [id number] [address] [place] [address], [place] [address] Sep, [facility] [address] [id number] [address] [place] [address], [place] [address] Aug, [facility] [address] [id number] [address] [place] [address], [place] [address] Aug, [facility] [address] [id number] [address] [place] [address], [place] [address] Aug, [facility] [address] [id number] [address] [place] [address], [place] [address] Jul, [facility] [address] [id number] [address] [place] [address], [place] [address] Jul, [facility] [address] [id number] [address] [place] [address], [place] [address] Jun, [facility] [address] [id number] [address] [place] [address], [place] [address] Jun, [facility] [address] [id number] [address] [place] [address], [place] [address] May, [facility] [address] [id number] [address] [place] [address], [place] [address] May, [facility] [address] [id number] [address] [place] [address], [place] [address] Apr, [facility] [address] [id number] [address] [place] [address], [place] [address] March, [facility] [address] [id number] [address] [place] [address], [place] [address] March, [facility] [address] [id number] [address] [place] [address], [place] [address] Feb, [facility] [address] [id number] [address] [place] [address], [place] [address] Jan, [facility] [address] [id number] [address] [place] [address], [place] [address] Jan, [facility] [address] [id number] [address] [place] [address], [place] [address] Dec, [facility] [address] [id number] [address] [place] [address], [place] [address] Dec, [facility] [address] [id number] [address] [place] [address], [place] [address] Nov, [facility] [address] [id number] [address] [place] [address], [place] [address] Nov, [facility] [address] [id number] [address] [place] [address], [place] [address] Nov, [facility] [address] [id number] [address] [place] [address], [place] [address] Nov, [facility] [address] [id number] [address] [place] [address], [place] [address] Nov, [facility] [address] [id number] [address] [place] [address], [place] [address] Oct, [facility] [address] [id number] [address] [place] [address], [place] [address] Oct, [facility] [address] [id number] [address] [place] [address], [place] [address] Oct, [facility] [address] [id number] [address] [place] [address], [place] [address] Oct, [facility] [address] [id number] [address] [place] [address], [place] [address] Oct, [facility] [address] [id number] [address] [place] [id number] 05 Oct, 2012 [facility] [address] [id number] [address] [place] [address], [place] [address] Oct, [facility] [address] [id number] [address] [place] [address], [place] [address] Oct, [facility] [address] [id number] [address] [place] [address], [place] [address] Sep, [facility] [address] [id number] [address] [place] [address], [place] [address] Sep, [facility] [address] [id number] [address] [place] [address], [place] [address] Sep, [facility] [address] [id number] [address] [place] [address], [place] [address] Aug, [facility] [address] [id number] [address] [place] [address], [place] [address] Aug, [facility] [address] [id number] [address] [place] [address], [place] [address] Aug, [facility] [address] [id number] [address] [place] [address], [place] [address] Aug, [facility] [address] [id number] [address] [place] [address], [place] [address] Aug, [facility] [address] [id number] [address] [place] [address], [place] [address] Jul, [facility] [address] [id number] [address] [place] [address], [place] [address] Jul, [facility] [address] [id number] [address] [place] [address], [place] [address] Jun, [facility] [address] [id number] [address] [place] [address], [place] [address] May, [facility] [address] [id number] [address] [place] [address], [place] [address] May, [facility] [address] [id number] [address] [place] [address], [place] [address] Apr, [facility] [address] [id number] [address] [place] [address], [place] [address] March, [facility] [address] [id number] [address] [place] [address], [place] [address] March, [facility] [address] [id number] [address] [place] [address], [place] [address] March, [facility] [address] [id number] [address] [place] [address], [place] [address] March, [facility] [address] [id number] [address] [place] [address], [place] [address] Feb, [facility] [address] [id number] [address] [place] [address], [place] [address] Feb, [facility] [address] [id number] [address] [place] [address], [place] [address] Jan, [facility] [address] [id number] [address] [place] [address], [place] [address] Dec, [facility] [address] [id number] [address] [place] [address], [place] [address] Dec, [facility] [address] [id number] [address] [place] [address], [place] [address] Dec, [facility] [address] [id number] [address] [place] [address], [place] [address] Nov, [facility] [address] [id number] [address] [place] [address], [place] [address] Nov, [facility] [address] [id number] [address] [place] [address], [place] [address] Nov, [facility] [address] [id number] [address] [place] [address], [place] [address] Oct, [facility] [address] [id number] [address] [address] Sep, [facility] [address] [facility] [id number] [address] [place] [address] Aug, [facility] [address] [facility] [id number] [address] [place] [address] Aug, [facility] [address] [facility] [id number] [address] [place] [address] May, [facility] [address] [facility] [id number] [address] [place] [id number] Sep, [facility] [address] [facility] [id number] [address] [place] [address] Sep, IMMUNIZATIONS No Known Immunizations SOCIAL HISTORY Never Assessed REASON FOR VISIT [facility] [place] VITAL SIGNS MEDICATIONS No Known Medications RESULTS No Results PROCEDURES No Known procedures INSTRUCTIONS MEDICATIONS ADMINISTERED No Known Medications MEDICAL (GENERAL) HISTORY Type Description Date Medical History bipolar Medical History adhd Medical History anxiety Surgical History No Surgical history information
--- OUTSIDE RECORDS SUMMARY | 2020-03-18 15:30 | XMS REPORT ---
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 Name Role Phone Migration, Doctor Unavailable Unavailable PROBLEMS Type Condition ICD9-CM Code FHR65-SQ Code Onset Dates Condition S tatus SNOMED Code Problem 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 Ac tive 02086853 Problem Encounter for long-term (current) use of other medications V58.69 Active 213981588 Problem Bipolar disorder, unspecified 296.80 Active 49059414 Problem Bipolar I disorder, most recent episode (or current) mixed, moderate 296.62 Active 280243029 Problem Bipolar disorder F31.9 Active 137 49531 Problem Intellectual disability F79 Active 60834915 Problem Generalized anxiety disorder 300.02 A ctive 33107360 Problem Attention-deficit hyperactiv ity disorder, predominantly inattentive type F90.0 Active 06027155 Problem 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 314.00 Active 52538146 Problem Intermittent explosive disorder F63.81 Active 40723962 Problem Attention deficit hyperactivity disorder F90.9 Active 227378212 Problem Bipolar disorder, currently in remission, most recent episode unspecified F31.70 Active 46232557 Problem Moderate intellectual disability F71 Active 25020103 ALLERGIES No Information ENCOUNTERS Encounter Location Date Diagnosis [place] [id number] [id number] [address] [place] [phone] Feb, Bipolar disorder F31.9 ; Att ention-deficit hyperactivity disorder, predominantly inattentive type F90.0 and Moderate intellectual disability F71 [facility] [address] [id number] [address] [place] [phone] Jan, Bipolar disorder F31.9 [facility] [address] [id number] [address] [place] [phone] Jan, Bipolar disorder F31.9 [facility] [address] [id number] [address] [place] [address] Jan, Dental examination Z01.20 ; 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 status requiring routine preventive dental care K08.9 and Caries K02.9 [facility] [address] [id number] [address] [place] [phone] Jan, [facility] [address] [id number] [address] [place] [address] Jan, Bipolar disorder F31.9 ; Mod erate intellectual disability F71 and Attention-deficit hyperactivity disorder, predominantly inattentive type F90.0 [facility] [address] [id number] [address] [place] [address] Dec, Bipolar disorder, currently in remission, most recent episode unspecified F31.70 [facility] [address] [id number] [address] [place] [address] Dec, Bipolar disorder, currently in remission, most recent episode unspecified F31.70 [facility] [address] [id number] [address] [place] [address] Dec, Bipolar disorder, currently in remission, most recent episode unspecified F31.70 [facility] [address] [id number] [address] [place] [phone] Dec, [facility] [address] [id number] [address] [place] [phone] Dec, Bipolar disorder, currently in remission, most recent episode unspecified F31.70 [facility] [address] [id number] [address] [place] [address] Nov, Bipolar disorder, currently in remission, most recent episode unspecified F31.70 [facility] [address] [id number] [address] [place] [address] Nov, [facility] [address] [id number] [address] [place] [phone] Nov, [facility] [address] [id number] [address] [place] [address] Nov, Bipolar disorder, currently in remission, most recent episode unspecified F31.70 [facility] [address] [id number] [address] [place] [address] Nov, Bipolar disorder, currently in remission, most recent episode unspecified F31.70 [facility] [address] [id number] [address] [place] [address] Oct, High risk medication use Z79 .899 ; Bipolar disorder F31.9 ; Moderate intellectual disability F71 and Attention-deficit hyperactivity disorder, predominantly inattentive type F90.0 [facility] [address] [id number] [address] [place] [phone] Oct, [facility] [address] [id number] [address] [place] [address] Sep, Bipolar disorder, currently in remission, most recent episode unspecified F31.70 [facility] [address] [id number] [address] [place] [phone] Sep, 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 stat us requiring routine preventive dental care K08.9 and Arrested dental caries K02.3 [facility] [address] [id number] [address] [place] [address] Sep, Bipolar disorder, currently in remission, most recent episode unspecified F31.70 ; Moderate intellectual disability F71 and Attention-deficit hyperactivity disorder, predominantly inattentive type F90.0 [facility] [address] [id number] [address] [place] [address] Sep, Bipolar disorder, currently in remission, most recent episode unspecified F31.70 [facility] [address] [id number] [address] [place] [address] Aug, Bipolar disorder, currently in remission, most recent episode unspecified F31.70 [facility] [address] [id number] [address] [place] [address] Jul, Bipolar disorder, currently in remission, most recent episode unspecified F31.70 [facility] [address] [id number] [address] [place] [address] Jul, Bipolar disorder, currently in remission, most recent episode unspecified F31.70 [facility] [address] [id number] [address] [place] [address] Jun, [facility] [address] [id number] [address] [place] [address] Jun, Bipolar disorder, currently in remission, most recent episode unspecified F31.70 [facility] [address] [id number] [address] [place] [address] [id number] 08 Jun, 2018 Dental examination Z01.20 an d Dental caries K02.9 [facility] [address] [id number] [address] [place] [address] May, Bipolar disorder, currently in remission, most recent episode unspecified F31.70 [facility] [address] [id number] [address] [place] [address] May, Bipolar disorder, currently in remission, most recent episode unspecified F31.70 [facility] [address] [id number] [address] [place] [address] May, Bipolar disorder, currently in remission, most recent episode unspecified F31.70 ; Moderate intellectual disability F71 and Attention-deficit hyperactivity disorder, predominantly inattentive type F90.0 [facility] [address] [id number] [address] [place] [address] Apr, Bipolar disorder, unspecifie d F31.9 [facility] [address] [id number] [address] [place] [address] Apr, [facility] [address] [id number] [address] [place] [address] Apr, [facility] [address] [id number] [address] [place] [address] Apr, [facility] [address] [id number] [address] [place] [phone] March, [facility] [address] [id number] [address] [place] [address] March, Bipolar disorder, currently in remission, most recent episode unspecified F31.70 ; Moderate intellectual disability F71 and Attention-deficit hyperactivity disorder, predominantly inattentive type F90.0 [facility] [address] [id number] [address] [place] [address] Feb, [facility] [address] [id number] [address] [place] [address] [id number] Feb, Dental examination Z01.20 [facility] [address] [id number] [address] [place] [phone] Jan, [facility] [address] [id number] [address] [place] [phone] Jan, [facility] [address] [id number] [address] [place] [address] Dec, [facility] [address] [id number] [address] [place] [address] Nov, [facility] [address] [id number] [address] [place] [address] [id number] Nov, Dental examination Z01.20 [facility] [address] [id number] [address] [place] [address] [phone] Nov, Encounter for dental exam an d cleaning w/o abnormal findings Z01.20 [facility] [address] [id number] [address] [place] [address] Oct, [facility] [address] [id number] [address] [place] [phone] Oct, Bipolar disorder, currently in remission, most recent episode unspecified F31.70 ; Moderate intellectual disability F71 and Attention-deficit hyperactivity disorder, predominantly inattentive type F90.0 [facility] [address] [id number] [address] [place] [phone] Sep, [facility] [address] [id number] [address] [place] [phone] Sep, [facility] [address] [id number] [address] [place] [phone] Aug, [facility] [address] [id number] [address] [place] [address] Aug, Attention-deficit hyperactiv ity disorder, predominantly inattentive type F90.0 ; Moderate intellectual disability 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 and Bipolar disorder F31.9 [facility] [address] [id number] [address] [place] [id number] Jul, Dental examination Z01.20 an d Dental caries K02.9 [facility] [address] [id number] [address] [place] [address] Jul, [facility] [address] [id number] [address] [place] [phone] Jun, Bipolar disorder F31.9 ; Att ention-deficit hyperactivity disorder, predominantly inattentive type F90.0 and Moderate intellectual disability F71 [facility] [address] [id number] [address] [place] [phone] Jun, [facility] [address] [id number] [address] [place] [phone] May, [facility] [address] [id number] [address] [place] [phone] Apr, [facility] [address] [id number] [address] [place] [address] March, Intermittent explosive disor jocelyn F63.81 ; Attention deficit hyperactivity disorder F90.9 and Bipolar disorder F31.9 [facility] [address] [id number] [address] [place] [address] Feb, [facility] [address] [id number] [address] [place] [phone] Jan, [facility] [address] [id number] [address] [place] [phone] 13 Dec, 2016 Intermittent explosive disor jocelyn F63.81 ; Attention deficit hyperactivity disorder F90.9 and Bipolar disorder, currently in remission, most recent episode unspecified F31.70 [facility] [address] [id number] [address] [place] [phone] 13 Dec, 2016 Encounter for immunization Z 23 [facility] [address] [id number] [address] [place] [phone] 27 Nov, 2016 [facility] [address] [id number] [address] [place] [phone] Oct, [facility] [address] [id number] [address] [place] [address] Oct, [facility] [address] [id number] [address] [place] [address] [id number] Oct, Dental examination Z01.20 [facility] [address] [id number] [address] [place] [phone] Sep, [facility] [address] [id number] [address] [place] [phone] Sep, [facility] [address] [id number] [address] [place] [address] Sep, Intermittent explosive disor jocelyn F63.81 ; Bipolar disorder F31.9 and Attention deficit hyperactivity disorder F90.9 [facility] [address] [id number] [address] [place] [phone] Aug, [facility] [address] [id number] [address] [place] [phone] Aug, [facility] [address] [id number] [address] [place] [phone] Aug, [facility] [address] [id number] [address] [place] [phone] Aug, Attention deficit hyperactiv ity disorder F90.9 [facility] [address] [id number] [address] [place] [phone] Jul, [facility] [address] [id number] [address] [place] [phone] Jun, [facility] [address] [id number] [address] [place] [phone] May, [facility] [address] [id number] [address] [place] [phone] Apr, [facility] [address] [id number] [address] [place] [address] Apr, Bipolar disorder F31.9 ; Att ention deficit hyperactivity disorder F90.9 and Intermittent explosive disorder F63.81 [facility] [address] [id number] [address] [place] [phone] March, [facility] [address] [id number] [address] [place] [phone] Feb, [facility] [address] [id number] [address] [place] [phone] Feb, [facility] [address] [id number] [address] [place] [phone] Jan, [facility] [address] [id number] [address] [place] [phone] Jan, [facility] [address] [id number] [address] [place] [phone] Dec, [facility] [address] [id number] [address] [place] [phone] Nov, [facility] [address] [id number] [address] [place] [phone] Nov, [facility] [address] [id number] [address] [place] [phone] Nov, Attention deficit hyperactiv ity disorder F90.9 ; Intermittent explosive disorder F63.81 and Bipolar disorder F31.9 [facility] [address] [id number] [address] [place] [address] Oct, [facility] [address] [id number] [address] [place] [phone] Oct, [facility] [address] [id number] [address] [place] [phone] Sep, [facility] [address] [id number] [address] [place] [phone] Aug, [facility] [address] [id number] [address] [place] [phone] Jul, [facility] [address] [id number] [address] [place] [address] Jul, [facility] [address] [id number] [address] [place] [phone] Jul, Anxiety, generalized 300.02 ; Bipolar disorder, unspecified 296.80 ; 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.00 ; 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 and Impulse control disorder, unspecified 312.30 [facility] [address] [id number] [address] [place] [phone] Jul, [facility] [address] [id number] [address] [place] [phone] Jun, [facility] [address] [id number] [address] [place] [phone] May, [facility] [address] [id number] [address] [place] [phone] Apr, [facility] [address] [id number] [address] [place] [address] Apr, Bipolar disorder, unspecifie d 296.80 ; Generalized anxiety disorder 300.02 and 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.00 [facility] [address] [id number] [address] [place] [phone] Apr, [facility] [address] [id number] [address] [place] [phone] March, [facility] [address] [id number] [address] [place] [phone] March, [facility] [address] [id number] [address] [place] [address], [place] [address] March, [facility] [address] [id number] [address] [place] [address], [place] [address] March, [facility] [address] [id number] [address] [place] [address], [place] [address] Feb, [facility] [address] [id number] [address] [place] [address], [place] [phone] Feb, [facility] [address] [id number] [address] [place] [address], [place] [phone] Jan, [facility] [address] [id number] [address] [place] [address], [place] [phone] Jan, [facility] [address] [id number] [address] [place] [address], [place] [phone] Jan, [facility] [address] [id number] [address] [place] [address], [place] [phone] Jan, [facility] [address] [id number] [address] [place] [address], [place] [address] Jan, [facility] [address] [id number] [address] [place] [address], [place] [phone] Dec, [facility] [address] [id number] [address] [place] [address], [place] [phone] Dec, [facility] [address] [id number] [address] [place] [address], [place] [phone] Nov, [facility] [address] [id number] [address] [place] [address], [place] [phone] Nov, [facility] [address] [id number] [address] [place] [address], [place] [phone] Nov, [facility] [address] [id number] [address] [place] [address], [place] [address] Oct, [facility] [address] [id number] [address] [place] [address], [place] [phone] Oct, [facility] [address] [id number] [address] [place] [address], [place] [address] Oct, [facility] [address] [id number] [address] [place] [address], [place] [phone] Oct, [facility] [address] [id number] [address] [place] [address], [place] [phone] Oct, [facility] [address] [id number] [address] [place] [address], [place] [phone] Oct, [facility] [address] [id number] [address] [place] [address], [place] [phone] Sep, [facility] [address] [id number] [address] [place] [address], [place] [phone] Sep, [facility] [address] [id number] [address] [place] [address], [place] [phone] Sep, [facility] [address] [id number] [address] [place] [address], [place] [address] Aug, [facility] [address] [id number] [address] [place] [address], [place] [phone] Aug, [facility] [address] [id number] [address] [place] [address], [place] [phone] Jul, [facility] [address] [id number] [address] [place] [address], [place] [address] Jul, [facility] [address] [id number] [address] [place] [address], [place] [id number] Jun, [facility] [address] [id number] [address] [place] [address], [place] [address] Jun, [facility] [address] [id number] [address] [place] [address], [place] [phone] Jun, [facility] [address] [id number] [address] [place] [address], [place] [address] Jun, [facility] [address] [id number] [address] [place] [address] 17 May, 2014 [facility] [address] [id number] [address] [place] [address] May, [facility] [address] [id number] [facility] [place] [address] May, [facility] [address] [id number] [address] [place] [address] Apr, [facility] [address] [id number] [address] [place] [phone] Apr, [facility] [address] [id number] [address] [place] [address], [place] [id number] Apr, [facility] [address] [id number] [address] [place] [address], [place] [id number] Apr, [facility] [address] [id number] [address] [place] [address], [place] [id number] March, [facility] [address] [id number] [address] [place] [address], [place] [id number] March, [facility] [address] [id number] [address] [place] [address], [place] [id number] March, [facility] [address] [id number] [address] [place] [address], [place] [id number] March, [facility] [address] [id number] [address] [place] [address], [place] [id number] Feb, [facility] [address] [id number] [address] [place] [address], [place] [id number] Feb, [facility] [address] [id number] [address] [place] [address], [place] [id number] Jan, [facility] [address] [id number] [address] [place] [address], [place] [id number] Jan, [facility] [address] [id number] [address] [place] [address], [place] [id number] Jan, [facility] [address] [id number] [address] [place] [id number] Jan, [facility] [address] [id number] [address] [place] [address], [place] [id number] Jan, [facility] [address] [id number] [address] [place] [address], [place] [id number] Jan, [facility] [address] [id number] [address] [place] [address], [place] [id number] Jan, [facility] [address] [id number] [address] [place] [address], [place] [id number] Jan, [facility] [address] [id number] [address] [place] [address], [place] [id number] Dec, [facility] [address] [id number] [address] [place] [address], [place] [id number] Dec, [facility] [address] [id number] [address] [place] [address], [place] [id number] Dec, [facility] [address] [id number] [address] [place] [address], [place] [id number] Dec, [facility] [address] [id number] [address] [place] [address], [place] [id number] Nov, [facility] [address] [id number] [address] [place] [address], [place] [id number] Nov, [facility] [place] [facility] [address] [id number] [address] [place] [address], [place] [id number] Oct, [facility] [place] [facility] [address] [id number] [address] [place] [address], [place] [id number] Oct, [facility] [place] [facility] [address] [id number] [address] [place] [address], [place] [id number] Oct, [facility] [place] [facility] [address] [id number] [address] [place] [address], [place] [id number] Oct, [facility] [place] [facility] [address] [id number] [address] [place] [address], [place] [id number] Sep, [facility] [address] [id number] [address] [place] [address], [place] [id number] Sep, [facility] [address] [id number] [address] [place] [address], [place] [id number] Sep, [facility] [address] [id number] [address] [place] [address], [place] [id number] Sep, [facility] [address] [id number] [address] [place] [address], [place] [id number] Aug, [facility] [address] [id number] [address] [place] [address], [place] [id number] Aug, [facility] [address] [id number] [address] [place] [address], [place] [id number] Aug, [facility] [address] [id number] [address] [place] [address], [place] [id number] Jul, [facility] [address] [id number] [address] [place] [address], [place] [id number] Jul, [facility] [address] [id number] [address] [place] [address], [place] [id number] Jun, [facility] [address] [id number] [address] [place] [address], [place] [id number] Jun, [facility] [address] [id number] [address] [place] [address], [place] [address] May, [facility] [address] [id number] [address] [place] [address], [place] [id number] May, [facility] [address] [id number] [address] [place] [address], [place] [id number] Apr, [facility] [address] [id number] [address] [place] [address], [place] [id number] March, [facility] [address] [id number] [address] [place] [address], [place] [id number] March, [facility] [address] [id number] [address] [place] [address], [place] [address] Feb, [facility] [address] [id number] [address] [place] [address], [place] [id number] Jan, [facility] [address] [id number] [address] [place] [address], [place] [id number] Jan, [facility] [address] [id number] [address] [place] [address], [place] [id number] Dec, [facility] [address] [id number] [address] [place] [address], [place] [id number] Dec, [facility] [address] [id number] [address] [place] [address], [place] [id number] Nov, [facility] [address] [id number] [address] [place] [address], [place] [phone] Nov, [facility] [address] [id number] [address] [place] [address], [place] [address] Nov, [facility] [address] [id number] [address] [place] [address], [place] [phone] Nov, [facility] [address] [id number] [address] [place] [address], [place] [id number] Nov, [facility] [address] [id number] [address] [place] [address], [place] [id number] Oct, [facility] [address] [id number] [address] [place] [address], [place] [address] Oct, [facility] [address] [id number] [address] [place] [address], [place] [id number] Oct, [facility] [address] [id number] [address] [place] [address], [place] [address] Oct, [facility] [address] [id number] [address] [place] [address], [place] [id number] Oct, [facility] [address] [id number] [address] [place] [id number] 05 Oct, 2012 [facility] [address] [id number] [address] [place] [address], [place] [address] Oct, [facility] [place] [facility] [address] [id number] [address] [place] [address], [place] [address] Oct, [facility] [place] [facility] [address] [id number] [address] [place] [address], [place] [address] Sep, [facility] [place] [facility] [address] [id number] [address] [place] [address], [place] [id number] Sep, [facility] [address] [id number] [address] [place] [address], [place] [id number] Sep, [facility] [address] [id number] [address] [place] [address], [place] [id number] Aug, [facility] [address] [id number] [address] [place] [address], [place] [address] Aug, [facility] [place] [facility] [address] [id number] [address] [place] [address], [place] [id number] Aug, [facility] [address] [id number] [address] [place] [address], [place] [address] Aug, [facility] [address] [id number] [address] [place] [address], [place] [id number] Aug, [facility] [place] [facility] [address] [id number] [address] [place] [address], [place] [address] Jul, [facility] [place] [facility] [address] [id number] [address] [place] [address], [place] [address] Jul, [facility] [place] [facility] [address] [id number] [address] [place] [address], [place] [address] Jun, [facility] [place] [facility] [address] [id number] [address] [place] [address], [place] [address] May, [facility] [place] [facility] [address] [id number] [address] [place] [address], [place] [address] May, [facility] [place] [facility] [address] [id number] [address] [place] [address], [place] [address] Apr, [facility] [address] [id number] [address] [place] [address], [place] [id number] March, [facility] [address] [id number] [address] [place] [address], [place] [address] March, [facility] [address] [id number] [address] [place] [address], [place] [id number] March, [facility] [address] [id number] [address] [place] [address], [place] [id number] March, [facility] [address] [id number] [address] [place] [address], [place] [address] Feb, [facility] [address] [id number] [address] [place] [address], [place] [id number] Feb, [facility] [address] [id number] [address] [place] [address], [place] [id number] Jan, [facility] [address] [id number] [address] [place] [address], [place] [id number] Dec, [facility] [address] [id number] [address] [place] [address], [place] [id number] Dec, [facility] [address] [id number] [address] [place] [address], [place] [id number] Dec, [facility] [address] [id number] [address] [place] [address], [place] [id number] Nov, [facility] [address] [id number] [address] [place] [address], [place] [id number] Nov, [facility] [address] [id number] [address] [place] [address], [place] [id number] Nov, [facility] [address] [id number] [address] [place] [address], [place] [phone] Oct, [facility] [address] [id number] [address] [address] Sep, [facility] [address] [id number] [address] [place] [phone] Aug, [facility] [address] [id number] [address] [place] [phone] Aug, [facility] [address] [id number] [address] [place] [phone] May, [facility] [address] [id number] [address] [place] [phone] Sep, [facility] [address] [id number] [address] [place] [id number] Sep, IMMUNIZATIONS No Known Immunizations SOCIAL HISTORY Never Assessed REASON FOR VISIT [facility] PLAN OF CARE VITAL SIGNS MEDICATIONS No Known Medications RESULTS No Results PROCEDURES No Known procedures INSTRUCTIONS MEDICATIONS ADMINISTERED No Known Medications MEDICAL (GENERAL) HISTORY Type Description Date Medical History bipolar Medical History adhd Medical History anxiety Surgical History No Surgical history information
--- OUTSIDE RECORDS SUMMARY | 2020-03-18 15:30 | XMS REPORT ---
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 Name Role Phone Migration, Doctor Unavailable Unavailable PROBLEMS Type Condition ICD9-CM Code [id number] Code Onset Dates Condition S tatus SNOMED Code Problem 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 Ac tive 87608602 Problem Encounter for long-term (current) use of other medications V58.69 Active 895832816 Problem Bipolar disorder, unspecified 296.80 Active 02376326 Problem Bipolar I disorder, most recent episode (or current) mixed, moderate 296.62 Active 837950930 Problem Bipolar disorder F31.9 Active 137 02232 Problem Intellectual disability F79 Active 55286518 Problem Generalized anxiety disorder 300.02 A ctive 41503998 Problem Attention-deficit hyperactiv ity disorder, predominantly inattentive type F90.0 Active 24208899 Problem 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 314.00 Active 32571069 Problem Intermittent explosive disorder F63.81 Active 73293536 Problem Attention deficit hyperactivity disorder F90.9 Active 294621717 Problem Bipolar disorder, currently in remission, most recent episode unspecified F31.70 Active 07436800 Problem Moderate intellectual disability F71 Active 19892522 ALLERGIES No Information ENCOUNTERS Encounter Location Date Diagnosis [place] [address] [id number] [address] [place] [phone] Feb, Bipolar disorder F31.9 [facility] [address] [id number] [address] [place] [address] Feb, Bipolar disorder F31.9 ; Att ention-deficit hyperactivity disorder, predominantly inattentive type F90.0 and Moderate intellectual disability F71 [facility] [address] [id number] [address] [place] [address] Jan, Bipolar disorder F31.9 [facility] [address] [id number] [address] [place] [address] Jan, Bipolar disorder F31.9 [facility] [address] [id number] [address] [place] [address] Jan, Dental examination Z01.20 ; 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 status requiring routine preventive dental care K08.9 and Caries K02.9 [facility] [address] [id number] [address] [place] [address] Jan, [facility] [address] [id number] [address] [place] [address] Jan, Bipolar disorder F31.9 ; Mod erate intellectual disability F71 and Attention-deficit hyperactivity disorder, predominantly inattentive type F90.0 [facility] [address] [id number] [address] [place] [phone] Dec, Bipolar disorder, currently in remission, most recent episode unspecified F31.70 [facility] [address] [id number] [address] [place] [address] Dec, Bipolar disorder, currently in remission, most recent episode unspecified F31.70 [facility] [address] [id number] [address] [place] [address] Dec, Bipolar disorder, currently in remission, most recent episode unspecified F31.70 [facility] [address] [id number] [address] [place] [address] Dec, [facility] [address] [id number] [address] [place] [address] Dec, Bipolar disorder, currently in remission, most recent episode unspecified F31.70 [facility] [address] [id number] [address] [place] [address] Nov, Bipolar disorder, currently in remission, most recent episode unspecified F31.70 [facility] [address] [id number] [address] [place] [address] Nov, [facility] [address] [id number] [address] [place] [address] Nov, [facility] [address] [id number] [address] [place] [address] Nov, Bipolar disorder, currently in remission, most recent episode unspecified F31.70 [facility] [address] [id number] [address] [place] [address] Nov, Bipolar disorder, currently in remission, most recent episode unspecified F31.70 [facility] [address] [id number] [address] [place] [address] Oct, High risk medication use Z79 .899 ; Bipolar disorder F31.9 ; Moderate intellectual disability F71 and Attention-deficit hyperactivity disorder, predominantly inattentive type F90.0 [facility] [address] [id number] [address] [place] [address] Oct, [facility] [address] [facility] [id number] [address] [place] [address] Sep, Bipolar disorder, currently in remission, most recent episode unspecified F31.70 [facility] [address] [id number] [address] [place] [phone] Sep, 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 stat us requiring routine preventive dental care K08.9 and Arrested dental caries K02.3 [facility] [address] [facility] [id number] [address] [place] [address] Sep, Bipolar disorder, currently in remission, most recent episode unspecified F31.70 ; Moderate intellectual disability F71 and Attention-deficit hyperactivity disorder, predominantly inattentive type F90.0 [facility] [address] [id number] [address] [place] [address] Sep, Bipolar disorder, currently in remission, most recent episode unspecified F31.70 [facility] [address] [id number] [address] [place] [address] Aug, Bipolar disorder, currently in remission, most recent episode unspecified F31.70 [facility] [address] [id number] [address] [place] [address] Jul, Bipolar disorder, currently in remission, most recent episode unspecified F31.70 [facility] [address] [id number] [address] [place] [address] Jul, Bipolar disorder, currently in remission, most recent episode unspecified F31.70 [facility] [address] [id number] [address] [place] [address] Jun, [facility] [address] [id number] [address] [place] [address] Jun, Bipolar disorder, currently in remission, most recent episode unspecified F31.70 [facility] [address] [id number] [address] [place] [address] [id number] Jun, Dental examination Z01.20 an d Dental caries K02.9 [facility] [address] [id number] [address] [place] [address] May, Bipolar disorder, currently in remission, most recent episode unspecified F31.70 [facility] [address] [id number] [address] [place] [address] May, Bipolar disorder, currently in remission, most recent episode unspecified F31.70 [facility] [address] [id number] [address] [place] [address] May, Bipolar disorder, currently in remission, most recent episode unspecified F31.70 ; Moderate intellectual disability F71 and Attention-deficit hyperactivity disorder, predominantly inattentive type F90.0 [facility] [address] [id number] [address] [place] [address] Apr, Bipolar disorder, unspecifie d F31.9 [facility] [address] [id number] [address] [place] [address] Apr, [facility] [address] [id number] [address] [place] [address] Apr, [facility] [address] [id number] [address] [place] [address] Apr, [facility] [address] [id number] [address] [place] [address] March, [facility] [address] [id number] [address] [place] [address] March, Bipolar disorder, currently in remission, most recent episode unspecified F31.70 ; Moderate intellectual disability F71 and Attention-deficit hyperactivity disorder, predominantly inattentive type F90.0 [facility] [address] [id number] [address] [place] [address] Feb, [facility] [address] [id number] [address] [place] [id number] Feb, Dental examination Z01.20 [facility] [address] [id number] [address] [place] [address] Jan, [facility] [address] [id number] [address] [place] [address] Jan, [facility] [address] [id number] [address] [place] [phone] Dec, [facility] [address] [id number] [address] [place] [address] Nov, [facility] [address] [id number] [address] [place] [address] [phone] Nov, Dental examination Z01.20 [facility] [address] [id number] [address] [place] [address] [id number] Nov, Encounter for dental exam an d cleaning w/o abnormal findings Z01.20 [facility] [address] [id number] [address] [place] [phone] Oct, [facility] [address] [id number] [address] [place] [phone] Oct, Bipolar disorder, currently in remission, most recent episode unspecified F31.70 ; Moderate intellectual disability F71 and Attention-deficit hyperactivity disorder, predominantly inattentive type F90.0 [facility] [address] [id number] [address] [place] [phone] Sep, [facility] [address] [id number] [address] [place] [address] Sep, [facility] [address] [id number] [address] [place] [address] Aug, [facility] [address] [id number] [address] [place] [phone] Aug, Attention-deficit hyperactiv ity disorder, predominantly inattentive type F90.0 ; Moderate intellectual disability 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 and Bipolar disorder F31.9 [facility] [address] [id number] [address] [place] [address] [id number] Jul, 2017 Dental examination Z01.20 an d Dental caries K02.9 [facility] [address] [id number] [address] [place] [phone] Jul, [facility] [address] [facility] [id number] [address] [place] [phone] Jun, Bipolar disorder F31.9 ; Att ention-deficit hyperactivity disorder, predominantly inattentive type F90.0 and Moderate intellectual disability F71 [facility] [address] [id number] [address] [place] [address] Jun, [facility] [address] [facility] [id number] [address] [place] [phone] May, [facility] [address] [id number] [address] [place] [phone] Apr, [facility] [address] [facility] [id number] [address] [place] [address] March, Intermittent explosive disor jocelyn F63.81 ; Attention deficit hyperactivity disorder F90.9 and Bipolar disorder F31.9 [facility] [address] [id number] [address] [place] [address] Feb, [facility] [address] [id number] [address] [place] [address] Jan, [facility] [address] [id number] [address] [place] [phone] 13 Dec, 2016 Intermittent explosive disor jocelyn F63.81 ; Attention deficit hyperactivity disorder F90.9 and Bipolar disorder, currently in remission, most recent episode unspecified F31.70 [facility] [address] [facility] [id number] [address] [place] [phone] 13 Dec, 2016 Encounter for immunization Z 23 [facility] [address] [facility] [id number] [address] [place] [phone] 27 Nov, 2016 [facility] [address] [facility] [id number] [address] [place] [address] Oct, [facility] [address] [facility] [id number] [address] [place] [phone] Oct, [facility] [address] [id number] [address] [place] [address] [id number] Oct, Dental examination Z01.20 [facility] [address] [facility] [id number] [address] [place] [phone] Sep, [facility] [address] [facility] [id number] [address] [place] [address] Sep, [facility] [address] [facility] [id number] [address] [place] [phone] Sep, Intermittent explosive disor jocelyn F63.81 ; Bipolar disorder F31.9 and Attention deficit hyperactivity disorder F90.9 [facility] [address] [facility] [id number] [address] [place] [phone] Aug, [facility] [address] [facility] [id number] [address] [place] [phone] Aug, [facility] [address] [facility] [id number] [address] [place] [phone] Aug, [facility] [address] [facility] [id number] [address] [place] [address] Aug, Attention deficit hyperactiv ity disorder F90.9 [facility] [address] [facility] [id number] [address] [place] [phone] 16 Jul, 2016 [facility] [address] [id number] [address] [place] [phone] Jun, [facility] [address] [id number] [address] [place] [phone] May, [facility] [address] [id number] [address] [place] [address] Apr, [facility] [address] [id number] [address] [place] [address] Apr, Bipolar disorder F31.9 ; Att ention deficit hyperactivity disorder F90.9 and Intermittent explosive disorder F63.81 [facility] [address] [id number] [address] [place] [phone] March, [facility] [address] [id number] [address] [place] [phone] Feb, [facility] [address] [id number] [address] [place] [phone] Feb, [facility] [address] [id number] [address] [place] [phone] Jan, [facility] [address] [facility] [id number] [address] [place] [phone] Jan, [facility] [address] [id number] [address] [place] [phone] Dec, [facility] [address] [id number] [address] [place] [phone] Nov, [facility] [address] [id number] [address] [place] [address] Nov, [facility] [address] [facility] [id number] [address] [place] [address] Nov, Attention deficit hyperactiv ity disorder F90.9 ; Intermittent explosive disorder F63.81 and Bipolar disorder F31.9 [facility] [address] [id number] [address] [place] [phone] Oct, [facility] [address] [id number] [address] [place] [phone] Oct, [facility] [address] [id number] [address] [place] [id number] Sep, [facility] [address] [id number] [address] [place] [phone] Aug, [facility] [address] [id number] [address] [place] [phone] Jul, [facility] [address] [id number] [address] [place] [phone] Jul, [facility] [address] [facility] [id number] [address] [place] [address] Jul, Anxiety, generalized 300.02 ; Bipolar disorder, unspecified 296.80 ; 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.00 ; 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 and Impulse control disorder, unspecified 312.30 [facility] [address] [facility] [id number] [address] [place] [phone] Jul, [facility] [address] [facility] [id number] [address] [place] [phone] Jun, [facility] [address] [facility] [id number] [address] [place] [phone] May, [facility] [address] [facility] [id number] [address] [place] [address] Apr, [facility] [address] [facility] [id number] [address] [place] [phone] Apr, Bipolar disorder, unspecifie d 296.80 ; Generalized anxiety disorder 300.02 and 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.00 [facility] [address] [id number] [address] [place] [phone] Apr, [facility] [address] [facility] [id number] [address] [place] [phone] March, [facility] [address] [id number] [address] [place] [address], [place] [address] March, [facility] [address] [id number] [address] [place] [address], [place] [address] March, [facility] [address] [id number] [address] [place] [address], [place] [address] March, [facility] [address] [id number] [address] [place] [address], [place] [address] Feb, [facility] [address] [id number] [address] [place] [address], [place] [address] Feb, [facility] [address] [id number] [address] [place] [address], [place] [address] Jan, [facility] [address] [id number] [address] [place] [address], [place] [address] Jan, [facility] [address] [id number] [address] [place] [address], [place] [address] Jan, [facility] [address] [id number] [address] [place] [address], [place] [address] Jan, [facility] [address] [id number] [address] [place] [address], [place] [address] Jan, [facility] [address] [id number] [address] [place] [address], [place] [address] Dec, [facility] [address] [id number] [address] [place] [address], [place] [address] Dec, [facility] [address] [id number] [address] [place] [address], [place] [address] Nov, [facility] [address] [id number] [address] [place] [address], [place] [address] Nov, [facility] [address] [id number] [address] [place] [address], [place] [address] Nov, [facility] [address] [id number] [address] [place] [address], [place] [address] Oct, [facility] [address] [id number] [address] [place] [address], [place] [address] Oct, [facility] [address] [id number] [address] [place] [address], [place] [address] Oct, [facility] [address] [id number] [address] [place] [address], [place] [address] Oct, [facility] [address] [id number] [address] [place] [address], [place] [address] Oct, [facility] [address] [id number] [address] [place] [address], [place] [address] Oct, [facility] [address] [id number] [address] [place] [address], [place] [address] Sep, [facility] [address] [id number] [address] [place] [address], [place] [address] Sep, [facility] [address] [id number] [address] [place] [address], [place] [address] Sep, [facility] [address] [id number] [address] [place] [address], [place] [address] Aug, [facility] [address] [id number] [address] [place] [address], [place] [address] Aug, [facility] [address] [id number] [address] [place] [address], [place] [address] Jul, [facility] [address] [id number] [address] [place] [address], [place] [address] Jul, [facility] [address] [id number] [address] [place] [address], [place] [address] Jun, [facility] [address] [id number] [address] [place] [address], [place] [address] Jun, [facility] [address] [id number] [address] [place] [address], [place] [address] Jun, [facility] [address] [id number] [address] [place] [address], [place] [address] Jun, [facility] [address] [id number] [address] [place] [address], [place] [address] May, [facility] [address] [id number] [address] [place] [address], [place] [address] May, [facility] [address] [id number] [address] [place] [address], [place] [address] May, [facility] [address] [id number] [address] [place] [address], [place] [address] Apr, [facility] [address] [id number] [address] [place] [address], [place] [address] Apr, [facility] [address] [id number] [address] [place] [address], [place] [address] Apr, [facility] [address] [id number] [address] [place] [address], [place] [address] Apr, [facility] [address] [id number] [address] [place] [address], [place] [address] March, [facility] [address] [id number] [address] [place] [address], [place] [address] March, [facility] [address] [id number] [address] [place] [address], [place] [address] March, [facility] [address] [id number] [address] [place] [address], [place] [address] March, [facility] [address] [id number] [address] [place] [address], [place] [address] Feb, [facility] [address] [id number] [address] [place] [address], [place] [address] Feb, [facility] [address] [id number] [address] [place] [address], [place] [address] Jan, [facility] [address] [id number] [address] [place] [address], [place] [address] Jan, [facility] [address] [id number] [address] [place] [address], [place] [address] Jan, [facility] [address] [id number] [address] [place] [address], [place] [address] Jan, [facility] [address] [id number] [address] [place] [address], [place] [address] Jan, [facility] [address] [id number] [address] [place] [address], [place] [address] Jan, [facility] [address] [id number] [address] [place] [address], [place] [address] Jan, [facility] [address] [id number] [address] [place] [address], [place] [address] Jan, [facility] [address] [id number] [address] [place] [address], [place] [address] Dec, [facility] [address] [id number] [address] [place] [address], [place] [address] Dec, [facility] [address] [id number] [address] [place] [address] [address] Dec, [facility] [address] [id number] [address] [place] [address], [place] [address] Dec, [facility] [address] [id number] [address] [place] [address], [place] [address] Nov, [facility] [address] [id number] [address] [place] [address], [place] [address] Nov, [facility] [address] [id number] [address] [place] [address], [place] [address] Oct, [facility] [address] [id number] [address] [place] [address], [place] [address] Oct, [facility] [address] [id number] [address] [place] [address], [place] [address] Oct, [facility] [address] [id number] [address] [place] [address], [place] [address] Oct, [facility] [address] [id number] [address] [place] [address], [place] [address] Sep, [facility] [address] [id number] [address] [place] [address], [place] [address] Sep, [facility] [address] [id number] [address] [place] [address], [place] [address] Sep, [facility] [address] [id number] [address] [place] [address], [place] [address] Sep, [facility] [address] [id number] [address] [place] [address], [place] [address] Aug, [facility] [address] [id number] [address] [place] [address], [place] [address] Aug, [facility] [address] [id number] [address] [place] [address], [place] [address] Aug, [facility] [address] [id number] [address] [place] [address], [place] [address] Jul, [facility] [address] [id number] [address] [place] [address], [place] [address] Jul, [facility] [address] [id number] [address] [place] [address], [place] [address] Jun, [facility] [address] [id number] [address] [place] [address], [place] [address] Jun, [facility] [address] [id number] [address] [place] [address], [place] [address] May, [facility] [address] [id number] [address] [place] [address], [place] [address] May, [facility] [address] [id number] [address] [place] [address], [place] [address] Apr, [facility] [address] [id number] [address] [place] [address], [place] [address] March, [facility] [place] [address] [id number] [address] [place] [address], [place] [address] March, [facility] [address] [id number] [address] [place] [address], [place] [address] Feb, [facility] [address] [id number] [address] [place] [address], [place] [address] Jan, [facility] [address] [id number] [address] [place] [address], [place] [address] Jan, [facility] [address] [id number] [address] [place] [address], [place] [address] Dec, [facility] [address] [id number] [address] [place] [address], [place] [address] Dec, [facility] [address] [id number] [address] [place] [address], [place] [address] Nov, [facility] [address] [id number] [address] [place] [address], [place] [address] Nov, [facility] [address] [id number] [address] [place] [address], [place] [address] Nov, [facility] [address] [id number] [address] [place] [address], [place] [address] Nov, [facility] [place] [address] [id number] [address] [place] [address], [place] [address] Nov, [facility] [address] [id number] [address] [place] [address], [place] [address] Oct, [facility] [address] [id number] [address] [place] [address], [place] [address] Oct, [facility] [address] [id number] [address] [place] [address], [place] [address] Oct, [facility] [address] [id number] [address] [place] [address], [place] [address] Oct, [facility] [address] [id number] [address] [place] [address], [place] [address] Oct, [facility] [address] [id number] [address] [place] [address], [place] [address] Oct, [facility] [address] [id number] [address] [place] [address], [place] [address] Oct, [facility] [address] [id number] [address] [place] [address], [place] [address] Oct, [facility] [address] [id number] [address] [place] [address], [place] [address] Sep, [facility] [address] [id number] [address] [place] [address], [place] [address] Sep, [facility] [address] [id number] [address] [place] [address], [place] [address] Sep, [facility] [address] [id number] [address] [place] [address], [place] [address] Aug, [facility] [address] [id number] [address] [place] [address], [place] [address] Aug, [facility] [address] [id number] [address] [place] [address], [place] [address] Aug, [facility] [place] [address] [id number] [address] [place] [address], [place] [address] Aug, [facility] [address] [id number] [address] [place] [address], [place] [address] Aug, [facility] [address] [id number] [address] [place] [address], [place] [address] Jul, [facility] [address] [id number] [address] [place] [address], [place] [address] Jul, [facility] [address] [id number] [address] [place] [address], [place] [address] Jun, [facility] [address] [id number] [address] [place] [address], [place] [address] May, [facility] [address] [id number] [address] [place] [address], [place] [address] May, [facility] [address] [id number] [address] [place] [address], [place] [address] Apr, [facility] [address] [id number] [address] [place] [address], [place] [address] March, [facility] [address] [id number] [address] [place] [address], [place] [address] March, [facility] [address] [id number] [address] [place] [address], [place] [address] March, [facility] [address] [id number] [address] [place] [address], [place] [address] March, [facility] [address] [id number] [address] [place] [address], [place] [address] Feb, [facility] [address] [id number] [address] [place] [address], [place] [address] Feb, [facility] [address] [id number] [address] [place] [address], [place] [address] Jan, [facility] [place] [address] [id number] [address] [place] [address], [place] [address] Dec, [facility] [address] [id number] [address] [place] [address], [place] [address] Dec, [facility] [address] [id number] [address] [place] [address], [place] [address] Dec, [facility] [address] [id number] [address] [place] [address], [place] [address] Nov, [facility] [address] [id number] [address] [place] [address], [place] [address] Nov, [facility] [address] [id number] [address] [place] [address], [place] [address] Nov, [facility] [address] [id number] [address] [place] [address] 14 Oct, 2011 [facility] [address] [facility] [id number] [address] [place] [address] Sep, [facility] [address] [facility] [id number] [address] [place] [address] Aug, [facility] [address] [facility] [id number] [address] [place] [address] Aug, [facility] [address] [facility] [id number] [address] [place] [address] May, [facility] [address] [facility] [id number] [address] [place] [address] Sep, [facility] [address] [facility] [id number] [address] [place] [address] Sep, IMMUNIZATIONS No Known Immunizations SOCIAL HISTORY Never Assessed REASON FOR VISIT EMR-[facility] PLAN OF CARE VITAL SIGNS MEDICATIONS Unknown Medications RESULTS No Results PROCEDURES No Known procedures INSTRUCTIONS MEDICATIONS ADMINISTERED No Known Medications MEDICAL (GENERAL) HISTORY Type Description Date Medical History bipolar Medical History adhd Medical History anxiety Surgical History No Surgical history information
--- OUTSIDE RECORDS SUMMARY | 2020-03-18 15:30 | XMS REPORT ---
Author Author Jose Cruz Mercer Doctor Organization [facility] Address Unknown Phone Unavailable Care Team Providers Care Fisher Lampara Net Name Role Phone Migration, Doctor Unavailable Unavailable PROBLEMS Type Condition ICD9-CM Code QHI78-IO Code Onset Dates Condition S tatus SNOMED Code Problem 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 Ac tive 32997653 Problem Encounter for long-term (current) use of other medications V58.69 Active 563278421 Problem Bipolar disorder, unspecified 296.80 Active 59864382 Problem Bipolar I disorder, most recent episode (or current) mixed, moderate 296.62 Active 835098318 Problem Bipolar disorder F31.9 Active 137 94837 Problem Intellectual disability F79 Active 65496246 Problem Generalized anxiety disorder 300.02 A ctive 42189731 Problem Attention-deficit hyperactiv ity disorder, predominantly inattentive type F90.0 Active 81505365 Problem 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 314.00 Active 08448381 Problem Intermittent explosive disorder F63.81 Active 99715239 Problem Attention deficit hyperactivity disorder F90.9 Active 926268215 Problem Bipolar disorder, currently in remission, most recent episode unspecified F31.70 Active 13733546 Problem Moderate intellectual disability F71 Active 05716713 ALLERGIES No Information ENCOUNTERS Encounter Location Date Diagnosis [place] [address] [address] [facility] [id number] [address] [place] [phone] Feb, [place] [address] [address] [place] [id number] [address] [place] [phone] Feb, Bipolar disorder F31.9 ; Att ention-deficit hyperactivity disorder, predominantly inattentive type F90.0 and Moderate intellectual disability F71 [place] [address] [address] [place] [id number] [address] [place] [phone] Jan, Bipolar disorder F31.9 [place] [address] [place] [id number] [address] [place] [id number] Jan, Bipolar disorder F31.9 [facility] [address] [id number] [address] [place] [phone] Jan, Dental examination Z01.20 ; 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 status requiring routine preventive dental care K08.[address] [facility] [address] [id number] [address] [place] [phone] Jan, [facility] [address] [id number] [address] [place] [id number] Jan, Bipolar disorder F31.9 ; Mod erate intellectual disability F71 and Attention-deficit hyperactivity disorder, predominantly inattentive type F90.0 [facility] [address] [id number] [address] [place] [id number] Dec, Bipolar disorder, currently in remission, most recent episode unspecified F31.70 [facility] [address] [id number] [address] [place] [phone] Dec, Bipolar disorder, currently in remission, most recent episode unspecified F31.70 [facility] [address] [id number] [address] [place] [phone] Dec, Bipolar disorder, currently in remission, most recent episode unspecified F31.70 [facility] [address] [id number] [address] [place] [address] Dec, [facility] [address] [id number] [address] [place] [phone] Dec, Bipolar disorder, currently in remission, most recent episode unspecified F31.70 [facility] [address] [id number] [address] [place] [phone] Nov, Bipolar disorder, currently in remission, most recent episode unspecified F31.70 [facility] [address] [id number] [address] [place] [phone] Nov, [facility] [address] [id number] [address] [place] [phone] Nov, [facility] [address] [id number] [address] [place] [phone] Nov, Bipolar disorder, currently in remission, most recent episode unspecified F31.70 [facility] [address] [id number] [address] [place] [id number] Nov, Bipolar disorder, currently in remission, most recent episode unspecified F31.70 [facility] [address] [id number] [address] [place] [phone] Oct, High risk medication use Z79 .899 ; Bipolar disorder F31.9 ; Moderate intellectual disability F71 and Attention-deficit hyperactivity disorder, predominantly inattentive type F90.0 [facility] [address] [id number] [address] [place] [phone] Oct, [facility] [address] [facility] [id number] [address] [place] [id number] Sep, Bipolar disorder, currently in remission, most recent episode unspecified F31.70 [facility] [address] [id number] [address] [place] [address] [id number] Sep, 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 stat us requiring routine preventive dental care K08.9 and Arrested dental caries K02.3 [facility] [address] [facility] [id number] [address] [place] [phone] Sep, Bipolar disorder, currently in remission, most recent episode unspecified F31.70 ; Moderate intellectual disability F71 and Attention-deficit hyperactivity disorder, predominantly inattentive type F90.0 [facility] [address] [facility] [id number] [address] [place] [id number] Sep, Bipolar disorder, currently in remission, most recent episode unspecified F31.70 [facility] [address] [id number] [address] [place] [phone] Aug, Bipolar disorder, currently in remission, most recent episode unspecified F31.70 [facility] [address] [id number] [address] [place] [phone] Jul, Bipolar disorder, currently in remission, most recent episode unspecified F31.70 [facility] [address] [id number] [address] [place] [phone] Jul, Bipolar disorder, currently in remission, most recent episode unspecified F31.70 [facility] [address] [id number] [address] [place] [phone] Jun, [facility] [address] [id number] [address] [place] [phone] Jun, Bipolar disorder, currently in remission, most recent episode unspecified F31.70 [facility] [address] [id number] [address] [place] [address] [id number] Jun, Dental examination Z01.20 an d Dental caries K02.9 [facility] [address] [id number] [address] [place] [phone] May, Bipolar disorder, currently in remission, most recent episode unspecified F31.70 [facility] [address] [id number] [address] [place] [phone] May, Bipolar disorder, currently in remission, most recent episode unspecified F31.70 [facility] [address] [id number] [address] [place] [phone] May, Bipolar disorder, currently in remission, most recent episode unspecified F31.70 ; Moderate intellectual disability F71 and Attention-deficit hyperactivity disorder, predominantly inattentive type F90.0 [facility] [address] [id number] [address] [place] [phone] Apr, Bipolar disorder, unspecifie d F31.9 [facility] [address] [id number] [address] [place] [phone] Apr, [facility] [address] [id number] [address] [place] [phone] Apr, [facility] [address] [id number] [address] [place] [phone] Apr, [facility] [address] [id number] [address] [place] [phone] March, [facility] [address] [id number] [address] [place] [phone] March, Bipolar disorder, currently in remission, most recent episode unspecified F31.70 ; Moderate intellectual disability F71 and Attention-deficit hyperactivity disorder, predominantly inattentive type F90.0 [facility] [address] [id number] [address] [place] [phone] Feb, [facility] [address] [id number] [address] [place] [address] [id number] Feb, Dental examination Z01.20 [facility] [address] [id number] [address] [place] [phone] Jan, [facility] [address] [id number] [address] [place] [id number] Jan, [facility] [address] [id number] [address] [place] [phone] Dec, [facility] [address] [id number] [address] [place] [phone] Nov, [facility] [address] [id number] [address] [place] [address] [id number] Nov, Encounter for dental exam an d cleaning w/o abnormal findings Z01.20 [facility] [address] [id number] [address] [place] [address] [id number] Nov, Dental examination Z01.20 [facility] [address] [id number] [address] [place] [phone] Oct, [facility] [address] [id number] [address] [place] [phone] Oct, Bipolar disorder, currently in remission, most recent episode unspecified F31.70 ; Moderate intellectual disability F71 and Attention-deficit hyperactivity disorder, predominantly inattentive type F90.0 [facility] [address] [id number] [address] [place] [phone] Sep, [facility] [address] [id number] [address] [place] [phone] Sep, [facility] [address] [id number] [address] [place] [phone] Aug, 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 [address] [id number] [address] [place] [phone] Jul, 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 [address] [id number] [address] [place] [phone] Jun, [facility] [address] [id number] [address] [place] [phone] May, [facility] [address] [id number] [address] [place] [phone] Apr, [facility] [address] [facility] [id number] [address] [place] [phone] March, Intermittent explosive disor jocelyn F63.81 ; Attention deficit hyperactivity disorder F90.[address] [facility] [address] [id number] [address] [place] [phone] Feb, [facility] [address] [id number] [address] [place] [id number] Jan, [facility] [address] [id number] [address] [place] [phone] 13 Dec, 2016 Encounter for immunization Z 23 [facility] [address] [facility] [id number] [address] [place] [phone] 13 Dec, 2016 Intermittent explosive disor jocelyn F63.81 ; Attention deficit hyperactivity disorder F90.9 and Bipolar disorder, currently in remission, most recent episode unspecified F31.70 [facility] [address] [id number] [address] [place] [phone] Nov, [facility] [address] [facility] [id number] [address] [place] [phone] Oct, [facility] [address] [facility] [id number] [address] [place] [phone] Oct, [facility] [address] [id number] [address] [place] [address] [id number] Oct, Dental examination Z01.20 [facility] [address] [facility] [id number] [address] [place] [phone] Sep, [facility] [address] [facility] [id number] [address] [place] [phone] Sep, [facility] [address] [facility] [id number] [address] [place] [id number] Sep, Intermittent explosive disor jocelyn F63.81 ; Bipolar disorder F31.9 and Attention deficit hyperactivity disorder F90.9 [facility] [address] [facility] [id number] [address] [place] [phone] Aug, [facility] [address] [facility] [id number] [address] [place] [phone] Aug, [facility] [address] [facility] [id number] [address] [place] [phone] Aug, [facility] [address] [facility] [id number] [address] [place] [phone] Aug, Attention deficit hyperactiv ity disorder F90.9 [facility] [address] [facility] [id number] [address] [place] [phone] Jul, [facility] [address] [id number] [address] [place] [phone] Jun, [facility] [address] [id number] [address] [place] [id number] May, [facility] [address] [id number] [address] [place] [phone] Apr, [facility] [address] [id number] [address] [place] [phone] Apr, Bipolar disorder F31.9 ; Att ention deficit hyperactivity disorder F90.9 and Intermittent explosive disorder F63.81 [facility] [address] [id number] [address] [place] [phone] March, [facility] [address] [id number] [address] [place] [phone] Feb, [facility] [address] [id number] [address] [place] [phone] Feb, [facility] [address] [facility] [id number] [address] [place] [phone] Jan, [facility] [address] [facility] [id number] [address] [place] [phone] Jan, [facility] [address] [facility] [id number] [address] [place] [phone] Dec, [facility] [address] [id number] [address] [place] [phone] Nov, [facility] [address] [id number] [address] [place] [phone] Nov, [facility] [address] [facility] [id number] [address] [place] [phone] Nov, Attention deficit hyperactiv ity disorder F90.9 ; Intermittent explosive disorder F63.81 [address]9 [facility] [address] [id number] [address] [place] [phone] Oct, [facility] [address] [id number] [address] [place] [phone] Oct, [facility] [address] [id number] [address] [place] [phone] Sep, [facility] [address] [facility] [id number] [address] [place] [phone] Aug, [facility] [address] [id number] [address] [place] [phone] Jul, [facility] [address] [id number] [address] [place] [phone] Jul, [facility] [address] [id number] [address] [place] [phone] Jul, Anxiety, generalized 300.02 ; Bipolar disorder, unspecified 296.80 ; 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.00 ; 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 and Impulse control disorder, unspecified 312.30 [facility] [address] [id number] [address] [place] [id number] Jul, [facility] [address] [id number] [address] [place] [phone] Jun, [facility] [address] [id number] [address] [place] [phone] May, [facility] [address] [id number] [address] [place] [phone] Apr, [facility] [address] [id number] [address] [place] [phone] Apr, Bipolar disorder, unspecifie d 296.80 ; Generalized anxiety disorder 300.02 and 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.00 [facility] [address] [id number] [address] [place] [phone] Apr, [facility] [address] [facility] [id number] [address] [place] [phone] March, [facility] [address] [id number] [address] [place] [address], [place] [address] March, [facility] [address] [id number] [address] [place] [address], [place] [address] March, [facility] [address] [id number] [address] [place] [address], [place] [address] March, [facility] [address] [id number] [address] [place] [address], [place] [address] Feb, [facility] [address] [id number] [address] [place] [address], [place] [address] Feb, [facility] [address] [id number] [address] [place] [address], [place] [phone] Jan, [facility] [address] [id number] [address] [place] [address], [place] [address] Jan, [facility] [address] [id number] [address] [place] [address], [place] [address] Jan, [facility] [address] [id number] [address] [place] [address], [place] [address] Jan, [facility] [address] [id number] [address] [place] [address], [place] [address] Jan, [facility] [address] [id number] [address] [place] [address], [place] [address] Dec, [facility] [address] [id number] [address] [place] [address], [place] [address] Dec, [facility] [address] [id number] [address] [place] [address], [place] [address] Nov, [facility] [address] [id number] [address] [place] [address], [place] [address] Nov, [facility] [address] [id number] [address] [place] [address], [place] [address] Nov, [facility] [address] [id number] [address] [place] [address], [place] [address] Oct, [facility] [address] [id number] [address] [place] [address], [place] [address] Oct, [facility] [address] [id number] [address] [place] [address], [place] [address] Oct, [facility] [address] [id number] [address] [place] [address], [place] [address] Oct, [facility] [address] [id number] [address] [place] [address], [place] [address] Oct, [facility] [address] [id number] [address] [place] [address], [place] [address] Oct, [facility] [address] [id number] [address] [place] [address], [place] [address] Sep, [facility] [address] [id number] [address] [place] [address], [place] [address] Sep, [facility] [address] [id number] [address] [place] [address], [place] [address] Sep, [facility] [address] [id number] [address] [place] [address], [place] [address] Aug, [facility] [address] [id number] [address] [place] [address], [place] [address] Aug, [facility] [address] [id number] [address] [place] [address], [place] [address] Jul, [facility] [address] [id number] [address] [place] [address], [place] [address] Jul, [facility] [address] [id number] [address] [place] [address], [place] [address] Jun, [facility] [address] [id number] [address] [place] [address], [place] [address] Jun, [facility] [address] [id number] [address] [place] [address], [place] [address] Jun, [facility] [address] [id number] [facility] [place] [address] Jun, [facility] [address] [id number] [facility] [place] [address] May, [facility] [address] [id number] [address] [place] [address], [place] [address] May, [facility] [address] [id number] [address] [place] [address], [place] [address] May, [facility] [address] [id number] [address] [place] [address], [place] [address] Apr, [facility] [address] [id number] [address] [place] [address], [place] [id number] Apr, [facility] [address] [id number] [address] [place] [address], [place] [address] Apr, [facility] [address] [id number] [address] [place] [address], [place] [address] Apr, [facility] [address] [id number] [address] [place] [address], [place] [address] March, [facility] [address] [id number] [address] [place] [address], [place] [address] March, [facility] [address] [id number] [address] [place] [address], [place] [address] March, [facility] [address] [id number] [address] [place] [address], [place] [address] March, [facility] [address] [id number] [address] [place] [address], [place] [address] Feb, [facility] [address] [id number] [address] [place] [address], [place] [address] Feb, [facility] [address] [id number] [address] [place] [address], [place] [address] Jan, [facility] [address] [id number] [address] [place] [address], [place] [address] Jan, [facility] [address] [id number] [facility] [place] [address] Jan, [facility] [address] [id number] [address] [place] [address], [place] [address] Jan, [facility] [address] [id number] [address] [place] [address], [place] [address] Jan, [facility] [address] [id number] [address] [place] [address], [place] [address] Jan, [facility] [address] [id number] [address] [place] [address], [place] [address] Jan, [facility] [address] [id number] [address] [place] [address], [place] [address] Jan, [facility] [address] [id number] [address] [place] [address], [place] [address] Dec, [facility] [address] [id number] [address] [place] [address], [place] [address] Dec, [facility] [address] [id number] [address] [place] [address], [place] [address] Dec, [facility] [address] [id number] [address] [place] [address], [place] [address] Dec, [facility] [address] [id number] [address] [place] [address], [place] [address] Nov, [facility] [address] [id number] [address] [place] [address], [place] [address] Nov, [facility] [address] [address] [id number] [address] [place] [address], [place] [address] Oct, [facility] [address] [id number] [address] [place] [address], [place] [address] Oct, [facility] [address] [id number] [address] [place] [address], [place] [address] Oct, [facility] [address] [id number] [address] [place] [address], [place] [address] Oct, [facility] [address] [id number] [address] [place] [address], [place] [address] Sep, [facility] [address] [id number] [address] [place] [address], [place] [address] Sep, [facility] [address] [id number] [address] [place] [address], [place] [address] Sep, [facility] [address] [id number] [address] [place] [address], [place] [address] Sep, [facility] [address] [id number] [address] [place] [address], [place] [address] Aug, [facility] [address] [id number] [address] [place] [address], [place] [address] Aug, [facility] [address] [id number] [address] [place] [address], [place] [address] Aug, [facility] [address] [id number] [address] [place] [address], [place] [address] Jul, [facility] [address] [id number] [address] [place] [address], [place] [address] Jul, [facility] [address] [id number] [address] [place] [address], [place] [address] Jun, [facility] [address] [id number] [address] [place] [address], [place] [address] Jun, [facility] [address] [id number] [address] [place] [address], [place] [address] May, [facility] [address] [id number] [address] [place] [address], [place] [address] May, [facility] [address] [id number] [address] [place] [address], [place] [address] Apr, [facility] [address] [id number] [address] [place] [address], [place] [address] March, [facility] [address] [id number] [address] [place] [address], [place] [address] March, [facility] [address] [id number] [address] [place] [address], [place] [address] Feb, [facility] [address] [id number] [address] [place] [address], [place] [address] Jan, [facility] [address] [id number] [address] [place] [address], [place] [address] Jan, [facility] [address] [id number] [address] [place] [address], [place] [address] Dec, [facility] [address] [id number] [address] [place] [address], [place] [address] Dec, [facility] [address] [id number] [address] [place] [address], [place] [address] Nov, [facility] [address] [id number] [address] [place] [address], [place] [address] Nov, [facility] [address] [id number] [address] [place] [address], [place] [address] Nov, [facility] [address] [id number] [address] [place] [address], [place] [address] Nov, [facility] [address] [id number] [address] [place] [address], [place] [address] Nov, [facility] [address] [id number] [address] [place] [address], [place] [address] Oct, [facility] [address] [id number] [address] [place] [address], [place] [address] Oct, [facility] [address] [id number] [address] [place] [address], [place] [address] Oct, [facility] [address] [id number] [address] [place] [address], [place] [address] Oct, [facility] [address] [id number] [address] [place] [address] Oct, [facility] [address] [id number] [address] [place] [address], [place] [address] Oct, [facility] [address] [id number] [address] [place] [address], [place] [address] Oct, [facility] [address] [id number] [address] [place] [address], [place] [address] Oct, [facility] [address] [id number] [address] [place] [address], [place] [address] Sep, [facility] [address] [id number] [address] [place] [address], [place] [address] Sep, [facility] [address] [id number] [address] [place] [address], [place] [address] Sep, [facility] [address] [id number] [address] [place] [address], [place] [address] Aug, [facility] [address] [id number] [address] [place] [address], [place] [address] Aug, [facility] [address] [id number] [address] [place] [address], [place] [address] Aug, [facility] [address] [id number] [address] [place] [address], [place] [address] Aug, [facility] [address] [id number] [address] [place] [address], [place] [address] Aug, [facility] [address] [id number] [address] [place] [address] Jul, [facility] [address] [id number] [address] [place] [address], [place] [address] Jul, [facility] [address] [id number] [address] [place] [address], [place] [address] Jun, [facility] [address] [id number] [address] [place] [address], [place] [address] May, [facility] [address] [id number] [address] [place] [address], [place] [address] May, [facility] [address] [id number] [address] [place] [address], [place] [address] Apr, [facility] [address] [id number] [address] [place] [address], [place] [address] March, [facility] [address] [id number] [address] [place] [address], [place] [address] March, [facility] [address] [id number] [address] [place] [address], [place] [address] March, [facility] [address] [id number] [address] [place] [address], [place] [address] March, [facility] [address] [id number] [address] [place] [address], [place] [address] Feb, [facility] [address] [id number] [address] [place] [address], [place] [address] Feb, [facility] [address] [id number] [address] [place] [address], [place] [address] Jan, [facility] [address] [id number] [address] [place] [address], [place] [address] Dec, [facility] [address] [id number] [address] [place] [address], [place] [address] Dec, [facility] [address] [id number] [address] [place] [address], [place] [address] Dec, [facility] [address] [id number] [address] [place] [address], [place] [address] Nov, [facility] [address] [id number] [address] [place] [address], [place] [address] Nov, [facility] [address] [id number] [address] [place] [address], [place] [address] Nov, [facility] [address] [id number] [address] [address] Oct, [facility] [address] [facility] [id number] [address] [place] [address] Sep, [facility] [address] [facility] [id number] [address] [place] [address] Aug, [facility] [address] [facility] [id number] [address] [place] [address] Aug, [facility] [address] [facility] [id number] [address] [place] [address] May, [facility] [address] [facility] [id number] [address] [place] [address] Sep, [facility] [address] [facility] [id number] [address] [place] [address] Sep, IMMUNIZATIONS No Known Immunizations SOCIAL HISTORY Never Assessed REASON FOR VISIT EMR-[facility] PLAN OF CARE VITAL SIGNS MEDICATIONS Unknown Medications RESULTS No Results PROCEDURES No Known procedures INSTRUCTIONS MEDICATIONS ADMINISTERED No Known Medications MEDICAL (GENERAL) HISTORY Type Description Date Medical History bipolar Medical History adhd Medical History anxiety Surgical History No Surgical history information
--- OUTSIDE RECORDS SUMMARY | 2020-03-18 15:31 | XMS REPORT ---
Author Author Jose Cruz Mercer Doctor Organization [facility] Address Unknown Phone Unavailable Care Team Providers Care Executive Associate Name Role Phone Migration, Doctor Unavailable Unavailable PROBLEMS Type Condition ICD9-CM Code YGV19-FK Code Onset Dates Condition S tatus SNOMED Code Problem 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 Ac tive 89858606 Problem Encounter for long-term (current) use of other medications V58.69 Active 095363802 Problem Bipolar disorder, unspecified 296.80 Active 69989167 Problem Bipolar I disorder, most recent episode (or current) mixed, moderate 296.62 Active 382393297 Problem Bipolar disorder F31.9 Active 137 33244 Problem Intellectual disability F79 Active 04839423 Problem Generalized anxiety disorder 300.02 A ctive 78254686 Problem Attention-deficit hyperactiv ity disorder, predominantly inattentive type F90.0 Active 87459993 Problem 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 314.00 Active 39507293 Problem Intermittent explosive disorder F63.81 Active 86577190 Problem Attention deficit hyperactivity disorder F90.9 Active 148033372 Problem Bipolar disorder, currently in remission, most recent episode unspecified F31.70 Active 36178133 Problem Moderate intellectual disability F71 Active 61983820 ALLERGIES No Information ENCOUNTERS Encounter Location Date Diagnosis [facility] [address] [facility] [id number] [address] [place] [phone] Feb, Bipolar disorder F31.9 ; Att ention-deficit hyperactivity disorder, predominantly inattentive type F90.0 and Moderate intellectual disability F71 [facility] [address] [facility] [id number] [address] [place] [id number] Jan, Bipolar disorder F31.9 [facility] [address] [facility] [id number] [address] [place] [phone] Jan, Bipolar disorder F31.9 [facility] [address] [facility] [id number] [address] [place] [phone] Jan, Dental examination Z01.20 ; 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 status requiring routine preventive dental care K08.9 and Caries K02.9 [facility] [address] [id number] [address] [place] [phone] Jan, [facility] [address] [id number] [address] [place] [phone] Jan, Bipolar disorder F31.9 ; Mod erate intellectual disability F71 and Attention-deficit hyperactivity disorder, predominantly inattentive type F90.0 [facility] [address] [id number] [address] [place] [address] Dec, Bipolar disorder, currently in remission, most recent episode unspecified F31.70 [facility] [address] [id number] [address] [place] [address] Dec, Bipolar disorder, currently in remission, most recent episode unspecified F31.70 [facility] [address] [id number] [address] [place] [address] Dec, Bipolar disorder, currently in remission, most recent episode unspecified F31.70 [facility] [address] [id number] [address] [place] [address] Dec, [facility] [address] [id number] [address] [place] [address] Dec, Bipolar disorder, currently in remission, most recent episode unspecified F31.70 [facility] [address] [id number] [address] [place] [address] Nov, Bipolar disorder, currently in remission, most recent episode unspecified F31.70 [facility] [address] [id number] [address] [place] [phone] Nov, [facility] [address] [id number] [address] [place] [id number] Nov, [facility] [address] [id number] [address] [place] [address] Nov, Bipolar disorder, currently in remission, most recent episode unspecified F31.70 [facility] [address] [id number] [address] [place] [phone] Nov, Bipolar disorder, currently in remission, most recent episode unspecified F31.70 [facility] [address] [id number] [address] [place] [address] Oct, High risk medication use Z79 .899 ; Bipolar disorder F31.9 ; Moderate intellectual disability F71 and Attention-deficit hyperactivity disorder, predominantly inattentive type F90.0 [facility] [address] [id number] [address] [place] [address] Oct, [facility] [address] [id number] [address] [place] [id number] Sep, Bipolar disorder, currently in remission, most recent episode unspecified F31.70 [facility] [address] [id number] [address] [place] [id number] Sep, 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 stat us requiring routine preventive dental care K08.9 and Arrested dental caries K02.3 [facility] [address] [id number] [address] [place] [address] Sep, Bipolar disorder, currently in remission, most recent episode unspecified F31.70 ; Moderate intellectual disability F71 and Attention-deficit hyperactivity disorder, predominantly inattentive type F90.0 [facility] [address] [id number] [address] [place] [address] Sep, Bipolar disorder, currently in remission, most recent episode unspecified F31.70 [facility] [address] [id number] [address] [place] [phone] Aug, Bipolar disorder, currently in remission, most recent episode unspecified F31.70 [facility] [address] [id number] [address] [place] [phone] Jul, Bipolar disorder, currently in remission, most recent episode unspecified F31.70 [facility] [address] [id number] [address] [place] [address] Jul, Bipolar disorder, currently in remission, most recent episode unspecified F31.70 [facility] [address] [id number] [address] [place] [phone] Jun, [facility] [address] [id number] [address] [place] [phone] Jun, Bipolar disorder, currently in remission, most recent episode unspecified F31.70 [facility] [address] [id number] [address] [place] [address] [id number] Jun, 2018 Dental examination Z01.20 an d Dental caries K02.9 [facility] [address] [id number] [address] [place] [phone] May, Bipolar disorder, currently in remission, most recent episode unspecified F31.70 [facility] [address] [id number] [address] [place] [address] May, Bipolar disorder, currently in remission, most recent episode unspecified F31.70 [facility] [address] [id number] [address] [place] [address] May, Bipolar disorder, currently in remission, most recent episode unspecified F31.70 ; Moderate intellectual disability F71 and Attention-deficit hyperactivity disorder, predominantly inattentive type F90.0 [facility] [address] [id number] [address] [place] [id number] Apr, Bipolar disorder, unspecifie d F31.9 [facility] [address] [id number] [address] [place] [phone] Apr, [facility] [address] [id number] [address] [place] [address] Apr, [facility] [address] [id number] [address] [place] [address] Apr, [facility] [address] [id number] [address] [place] [id number] March, [facility] [address] [id number] [address] [place] [phone] March, Bipolar disorder, currently in remission, most recent episode unspecified F31.70 ; Moderate intellectual disability F71 and Attention-deficit hyperactivity disorder, predominantly inattentive type F90.0 [facility] [address] [id number] [address] [place] [phone] Feb, [facility] [address] [id number] [address] [place] [address] [id number] Feb, Dental examination Z01.20 [facility] [address] [id number] [address] [place] [phone] Jan, [facility] [address] [id number] [address] [place] [phone] Jan, [facility] [address] [id number] [address] [place] [address] Dec, [facility] [address] [id number] [address] [place] [phone] Nov, [facility] [address] [id number] [address] [place] [address] [id number] Nov, Encounter for dental exam an d cleaning w/o abnormal findings Z01.20 [facility] [address] [id number] [address] [place] [address] [id number] Nov, Dental examination Z01.20 [facility] [address] [id number] [address] [place] [phone] Oct, [facility] [address] [id number] [address] [place] [phone] Oct, Bipolar disorder, currently in remission, most recent episode unspecified F31.70 ; Moderate intellectual disability F71 and Attention-deficit hyperactivity disorder, predominantly inattentive type F90.0 [facility] [address] [id number] [address] [place] [phone] Sep, [facility] [address] [id number] [address] [place] [phone] Sep, [facility] [address] [facility] [id number] [address] [place] [address] Aug, [facility] [address] [facility] [id number] [address] [place] [phone] Aug, Attention-deficit hyperactiv ity disorder, predominantly inattentive type F90.0 ; Moderate intellectual disability 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 and Bipolar disorder F31.9 [facility] [address] [id number] [address] [place] [address] [id number] Jul, 2017 Dental examination Z01.20 an d Dental caries K02.9 [facility] [address] [id number] [address] [place] [phone] Jul, [facility] [address] [facility] [id number] [address] [place] [phone] Jun, Bipolar disorder F31.9 ; Att ention-deficit hyperactivity disorder, predominantly inattentive type F90.0 and Moderate intellectual disability F71 [facility] [address] [facility] [id number] [address] [place] [id number] Jun, [facility] [address] [facility] [id number] [address] [place] [phone] May, [facility] [address] [facility] [id number] [address] [place] [phone] Apr, [facility] [address] [facility] [id number] [address] [place] [phone] March, Intermittent explosive disor jocelyn F63.81 ; Attention deficit hyperactivity disorder F90.9 and Bipolar disorder F31.9 [facility] [address] [id number] [address] [place] [phone] Feb, [facility] [address] [facility] [id number] [address] [place] [phone] Jan, [facility] [address] [facility] [id number] [address] [place] [phone] 13 Dec, 2016 Encounter for immunization Z 23 [facility] [address] [facility] [id number] [address] [place] [phone] Dec, Intermittent explosive disor jocelyn F63.81 ; Attention deficit hyperactivity disorder F90.9 and Bipolar disorder, currently in remission, most recent episode unspecified F31.70 [facility] [address] [id number] [address] [place] [phone] Nov, [facility] [address] [facility] [id number] [address] [place] [phone] Oct, [facility] [address] [facility] [id number] [address] [place] [phone] Oct, [facility] [address] [id number] [address] [place] [address] [id number] Oct, Dental examination Z01.20 [facility] [address] [facility] [id number] [address] [place] [phone] Sep, [facility] [address] [facility] [id number] [address] [place] [phone] Sep, [facility] [address] [facility] [id number] [address] [place] [phone] Sep, Intermittent explosive disor jocelyn F63.81 ; Bipolar disorder F31.9 and Attention deficit hyperactivity disorder F90.9 [facility] [address] [facility] [id number] [address] [place] [phone] Aug, [facility] [address] [facility] [id number] [address] [place] [phone] Aug, [facility] [address] [facility] [id number] [address] [place] [phone] Aug, [facility] [address] [facility] [id number] [address] [place] [phone] Aug, Attention deficit hyperactiv ity disorder F90.9 [facility] [address] [id number] [address] [place] [phone] Jul, [facility] [address] [facility] [id number] [address] [place] [phone] Jun, [facility] [address] [id number] [address] [place] [id number] May, [facility] [address] [id number] [address] [place] [phone] Apr, [facility] [address] [id number] [address] [place] [phone] Apr, Bipolar disorder F31.9 ; Att ention deficit hyperactivity disorder F90.9 and Intermittent explosive disorder F63.81 [facility] [address] [id number] [address] [place] [phone] March, [facility] [address] [id number] [address] [place] [phone] Feb, [facility] [address] [id number] [address] [place] [phone] Feb, [facility] [address] [id number] [address] [place] [phone] Jan, [facility] [address] [id number] [address] [place] [phone] Jan, [facility] [address] [id number] [address] [place] [phone] Dec, [facility] [address] [id number] [address] [place] [phone] Nov, [facility] [address] [id number] [address] [place] [phone] Nov, [facility] [address] [id number] [address] [place] [phone] Nov, Attention deficit hyperactiv ity disorder F90.9 ; Intermittent explosive disorder F63.81 and Bipolar disorder F31.9 [facility] [address] [id number] [address] [place] [phone] Oct, [facility] [address] [id number] [address] [place] [phone] Oct, [facility] [address] [facility] [id number] [address] [place] [phone] Sep, [facility] [address] [facility] [id number] [address] [place] [phone] Aug, [facility] [address] [facility] [id number] [address] [place] [phone] Jul, [facility] [address] [facility] [id number] [address] [place] [phone] Jul, [facility] [address] [facility] [id number] [address] [place] [phone] Jul, Anxiety, generalized 300.02 ; Bipolar disorder, unspecified 296.80 ; 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.00 ; 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 and Impulse control disorder, unspecified 312.30 [facility] [address] [facility] [id number] [address] [place] [phone] Jul, [facility] [address] [facility] [id number] [address] [place] [phone] Jun, [facility] [address] [facility] [id number] [address] [place] [phone] May, [facility] [address] [facility] [id number] [address] [place] [address] Apr, [facility] [address] [facility] [id number] [address] [place] [phone] Apr, Bipolar disorder, unspecifie d 296.80 ; Generalized anxiety disorder 300.02 and 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.00 [facility] [address] [facility] [id number] [address] [place] [phone] Apr, [facility] [address] [facility] [id number] [address] [place] [phone] March, [facility] [address] [facility] [id number] [address] [place] [phone] March, [facility] [address] [id number] [address] [place] [address], [place] [address] March, [facility] [address] [id number] [address] [place] [address], [place] [address] March, [facility] [address] [id number] [address] [place] [address], [place] [address] Feb, [facility] [address] [id number] [address] [place] [address], [place] [address] Feb, [facility] [address] [id number] [address] [place] [address], [place] [address] Jan, [facility] [address] [id number] [address] [place] [address], [place] [address] Jan, [facility] [address] [id number] [address] [place] [address], [place] [address] Jan, [facility] [address] [id number] [address] [place] [address], [place] [address] Jan, [facility] [address] [id number] [address] [place] [address], [place] [address] Jan, [facility] [address] [id number] [address] [place] [address], [place] [address] Dec, [facility] [address] [id number] [address] [place] [address], [place] [address] Dec, [facility] [address] [id number] [address] [place] [address], [place] [address] Nov, [facility] [address] [id number] [address] [place] [address], [place] [address] Nov, [facility] [address] [id number] [address] [place] [address], [place] [address] Nov, [facility] [address] [id number] [address] [place] [address], [place] [address] Oct, [facility] [address] [id number] [address] [place] [address], [place] [address] Oct, [facility] [address] [id number] [address] [place] [address], [place] [address] Oct, [facility] [address] [id number] [address] [place] [address], [place] [address] Oct, [facility] [address] [id number] [address] [place] [address], [place] [address] Oct, [facility] [address] [id number] [address] [place] [address], [place] [address] Oct, [facility] [address] [id number] [address] [place] [address], [place] [address] Sep, [facility] [address] [id number] [address] [place] [address], [place] [address] Sep, [facility] [address] [id number] [address] [place] [address], [place] [address] Sep, [facility] [address] [id number] [address] [place] [address], [place] [address] Aug, [facility] [address] [id number] [address] [place] [address], [place] [address] Aug, [facility] [address] [id number] [address] [place] [address], [place] [address] Jul, [facility] [address] [id number] [address] [place] [address], [place] [address] Jul, [facility] [address] [id number] [address] [place] [address], [place] [address] Jun, [facility] [address] [id number] [address] [place] [address], [place] [address] Jun, [facility] [address] [id number] [address] [place] [address], [place] [address] Jun, [facility] [address] [id number] [address] [place] [address], [place] [address] Jun, [facility] [address] [id number] [facility] [place] [address] 17 May, 2014 [facility] [address] [id number] [facility] [place] [address] May, [facility] [address] [id number] [facility] [place] [address] May, [facility] [address] [id number] [facility] [place] [address] Apr, [facility] [address] [id number] [facility] [place] [address] Apr, [facility] [address] [id number] [address] [place] [address], [place] [address] Apr, [facility] [address] [id number] [address] [place] [address], [place] [address] Apr, [facility] [address] [id number] [address] [place] [address], [place] [address] March, [facility] [address] [id number] [address] [place] [address], [place] [address] March, [facility] [address] [id number] [address] [place] [address], [place] [address] March, [facility] [address] [id number] [address] [place] [address], [place] [address] March, [facility] [address] [id number] [address] [place] [address], [place] [address] Feb, [facility] [address] [id number] [address] [place] [address], [place] [address] Feb, [facility] [address] [id number] [address] [place] [address], [place] [address] Jan, [facility] [address] [id number] [address] [place] [address], [place] [address] Jan, [facility] [address] [id number] [address] [place] [address], [place] [address] Jan, [facility] [address] [id number] [facility] [place] [address] Jan, [facility] [address] [id number] [address] [place] [address], [place] [address] Jan, [facility] [address] [id number] [address] [place] [address], [place] [address] Jan, [facility] [address] [id number] [address] [place] [address], [place] [address] Jan, [facility] [address] [id number] [address] [place] [address], [place] [address] Jan, [facility] [address] [id number] [address] [place] [address], [place] [address] Dec, [facility] [address] [id number] [address] [place] [address], [place] [address] Dec, [facility] [address] [id number] [address] [place] [address], [place] [address] Dec, [facility] [address] [id number] [address] [place] [address], [place] [address] Dec, [facility] [facility] [address] [id number] [address] [place] [address], [place] [address] Nov, [facility] [address] [id number] [address] [place] [address], [place] [address] Nov, [facility] [address] [id number] [address] [place] [address], [place] [address] Oct, [facility] [address] [id number] [address] [place] [address], [place] [address] Oct, [facility] [address] [id number] [address] [place] [address], [place] [address] Oct, [facility] [address] [id number] [address] [place] [address], [place] [address] Oct, [facility] [address] [id number] [address] [place] [address], [place] [address] Sep, [facility] [address] [id number] [address] [place] [address], [place] [address] Sep, [facility] [address] [id number] [address] [place] [address], [place] [address] Sep, [facility] [address] [id number] [address] [place] [address], [place] [address] Sep, [facility] [address] [id number] [address] [place] [address], [place] [address] Aug, [facility] [address] [id number] [address] [place] [address], [place] [address] Aug, [facility] [address] [id number] [address] [place] [address], [place] [address] Aug, [facility] [address] [id number] [address] [place] [address], [place] [address] Jul, [facility] [address] [id number] [address] [place] [address], [place] [address] Jul, [facility] [address] [id number] [address] [place] [address], [place] [address] Jun, [facility] [address] [id number] [address] [place] [address], [place] [address] Jun, [facility] [address] [id number] [address] [place] [address], [place] [address] May, [facility] [address] [id number] [address] [place] [address], [place] [address] May, [facility] [address] [id number] [address] [place] [address], [place] [address] Apr, [facility] [address] [id number] [address] [place] [address], [place] [address] March, [facility] [address] [id number] [address] [place] [address], [place] [address] March, [facility] [address] [id number] [address] [place] [address], [place] [address] Feb, [facility] [address] [id number] [address] [place] [address], [place] [address] Jan, [facility] [address] [id number] [address] [place] [address], [place] [address] Jan, [facility] [address] [id number] [address] [place] [address], [place] [address] Dec, [facility] [address] [id number] [address] [place] [address], [place] [address] Dec, [facility] [address] [id number] [address] [place] [address], [place] [address] Nov, [facility] [address] [id number] [address] [place] [address], [place] [address] Nov, [facility] [address] [id number] [address] [place] [address], [place] [address] Nov, [facility] [address] [id number] [address] [place] [address], [place] [address] Nov, [facility] [address] [id number] [address] [place] [address], [place] [address] Nov, [facility] [address] [id number] [address] [place] [address], [place] [address] Oct, [facility] [address] [id number] [address] [place] [address], [place] [address] Oct, [facility] [address] [id number] [address] [place] [address], [place] [address] Oct, [facility] [address] [id number] [address] [place] [address], [place] [address] Oct, [facility] [address] [id number] [address] [place] [address], [place] [address] Oct, [facility] [address] [id number] [address] [place] [address] 05 Oct, 2012 [facility] [address] [id number] [address] [place] [address], [place] [address] Oct, [facility] [address] [id number] [address] [place] [address], [place] [address] Oct, [facility] [address] [id number] [address] [place] [address], [place] [address] Sep, [facility] [address] [id number] [address] [place] [address], [place] [address] Sep, [facility] [address] [id number] [address] [place] [address], [place] [address] Sep, [facility] [address] [id number] [address] [place] [address], [place] [address] Aug, [facility] [address] [id number] [address] [place] [address], [place] [address] Aug, [facility] [address] [id number] [address] [place] [address], [place] [address] Aug, [facility] [address] [id number] [address] [place] [address], [place] [address] Aug, [facility] [address] [id number] [address] [place] [address], [place] [address] Aug, [facility] [address] [id number] [address] [place] [address], [place] [address] Jul, [facility] [address] [id number] [address] [place] [address], [place] [address] Jul, [facility] [address] [id number] [address] [place] [address], [place] [address] Jun, [facility] [address] [id number] [address] [place] [address], [place] [address] May, [facility] [address] [id number] [address] [place] [address], [place] [address] May, [facility] [address] [id number] [address] [place] [address], [place] [address] Apr, [facility] [address] [id number] [address] [place] [address], [place] [address] March, [facility] [address] [id number] [address] [place] [address], [place] [address] March, [facility] [address] [id number] [address] [place] [address], [place] [address] March, [facility] [address] [id number] [address] [place] [address], [place] [address] March, [facility] [address] [id number] [address] [place] [address], [place] [address] Feb, [facility] [address] [id number] [address] [place] [address], [place] [address] Feb, [facility] [address] [id number] [address] [place] [address], [place] [address] Jan, [facility] [address] [id number] [address] [place] [address], [place] [address] Dec, [facility] [address] [id number] [address] [place] [address], [place] [address] Dec, [facility] [address] [id number] [address] [place] [address], [place] [address] Dec, [facility] [address] [id number] [address] [place] [address], [place] [address] Nov, [facility] [address] [id number] [address] [place] [address], [place] [address] Nov, [facility] [address] [id number] [address] [place] [address], [place] [address] Nov, [facility] [address] [id number] [address] [place] [address], [place] [address] Oct, [facility] [address] [id number] [place] [address] Sep, [facility] [address] [facility] [id number] [address] [place] [address] Aug, [facility] [address] [facility] [id number] [address] [place] [address] Aug, [facility] [address] [facility] [id number] [address] [place] [address] May, [facility] [address] [facility] [id number] [address] [place] [address] Sep, [facility] [address] [facility] [id number] [address] [place] [address] Sep, IMMUNIZATIONS No Known Immunizations SOCIAL HISTORY Never Assessed REASON FOR VISIT [facility] [place] PLAN OF CARE VITAL SIGNS MEDICATIONS No Known Medications RESULTS No Results PROCEDURES No Known procedures INSTRUCTIONS MEDICATIONS ADMINISTERED No Known Medications MEDICAL (GENERAL) HISTORY Type Description Date Medical History bipolar Medical History adhd Medical History anxiety Surgical History No Surgical history information
--- OUTSIDE RECORDS SUMMARY | 2020-03-18 15:31 | XMS REPORT ---
Author Author Jose Cruz Mercer Doctor Organization [facility] Address Unknown Phone Unavailable Care Team Providers Care Frame Opener Name Role Phone Migration, Doctor Unavailable Unavailable PROBLEMS Type Condition ICD9-CM Code [id number] Code Onset Dates Condition S tatus SNOMED Code Problem 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 Ac tive 18742632 Problem Encounter for long-term (current) use of other medications V58.69 Active 180765098 Problem Bipolar disorder, unspecified 296.80 Active 31178934 Problem Bipolar I disorder, most recent episode (or current) mixed, moderate 296.62 Active 282428617 Problem Bipolar disorder F31.9 Active 137 66850 Problem Intellectual disability F79 Active 37588983 Problem Generalized anxiety disorder 300.02 A ctive 50044955 Problem Attention-deficit hyperactiv ity disorder, predominantly inattentive type F90.0 Active 11261490 Problem 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 314.00 Active 98686174 Problem Intermittent explosive disorder F63.81 Active 02269128 Problem Attention deficit hyperactivity disorder F90.9 Active 085842762 Problem Bipolar disorder, currently in remission, most recent episode unspecified F31.70 Active 76286844 Problem Moderate intellectual disability F71 Active 69281456 ALLERGIES No Information ENCOUNTERS Encounter Location Date Diagnosis [place] [address] [place] [id number] [address] [place] [phone] Feb, [place] [address] [place] [id number] [address] [place] [phone] Jan, Bipolar disorder F31.9 [place] [address] [facility] [place] [id number] [address] [place] [id number] Jan, Bipolar disorder F31.9 [place] [address] [place] [id number] [address] [place] [phone] Jan, Dental examination Z01.20 ; 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 status requiring routine preventive dental care K08.9 and Caries K02.9 [place] [address] [place] [id number] [address] [place] [phone] Jan, [facility] [address] [id number] [address] [place] [id number] Jan, Bipolar disorder F31.9 ; Mod erate intellectual disability F71 and Attention-deficit hyperactivity disorder, predominantly inattentive type F90.0 [facility] [address] [id number] [address] [place] [id number] Dec, Bipolar disorder, currently in remission, most recent episode unspecified F31.70 [facility] [address] [id number] [address] [place] [phone] Dec, Bipolar disorder, currently in remission, most recent episode unspecified F31.70 [facility] [address] [id number] [address] [place] [phone] Dec, Bipolar disorder, currently in remission, most recent episode unspecified F31.70 [facility] [address] [id number] [address] [place] [id number] Dec, [facility] [address] [id number] [address] [place] [phone] Dec, Bipolar disorder, currently in remission, most recent episode unspecified F31.70 [facility] [address] [id number] [address] [place] [id number] Nov, Bipolar disorder, currently in remission, most recent episode unspecified F31.70 [facility] [address] [id number] [address] [place] [id number] Nov, [facility] [address] [id number] [address] [place] [phone] Nov, [facility] [address] [facility] [place] [id number] [address] [place] [phone] Nov, Bipolar disorder, currently in remission, most recent episode unspecified F31.70 [facility] [address] [id number] [address] [place] [phone] Nov, Bipolar disorder, currently in remission, most recent episode unspecified F31.70 [facility] [address] [id number] [address] [place] [address] Oct, High risk medication use Z79 .899 ; Bipolar disorder F31.9 ; Moderate intellectual disability F71 and Attention-deficit hyperactivity disorder, predominantly inattentive type F90.0 [facility] [address] [id number] [address] [place] [phone] Oct, [facility] [address] [id number] [address] [place] [id number] Sep, Bipolar disorder, currently in remission, most recent episode unspecified F31.70 [facility] [address] [id number] [address] [place] [id number] Sep, 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 stat us requiring routine preventive dental care K08.9 and Arrested dental caries K02.3 [facility] [address] [id number] [address] [place] [phone] Sep, Bipolar disorder, currently in remission, most recent episode unspecified F31.70 ; Moderate intellectual disability 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 and Attention-deficit hyperactivity disorder, predominantly inattentive type F90.0 [facility] [address] [id number] [address] [place] [address] Sep, Bipolar disorder, currently in remission, most recent episode unspecified F31.70 [facility] [address] [id number] [address] [place] [id number] Aug, Bipolar disorder, currently in remission, most recent episode unspecified F31.70 [facility] [address] [id number] [address] [place] [id number] 13 Jul, 2018 Bipolar disorder, currently in remission, most recent episode unspecified F31.70 [facility] [address] [id number] [address] [place] [id number] Jul, Bipolar disorder, currently in remission, most recent episode unspecified F31.70 [facility] [address] [id number] [address] [place] [phone] Jun, [facility] [address] [id number] [address] [place] [id number] Jun, Bipolar disorder, currently in remission, most recent episode unspecified F31.70 [facility] [address] [id number] [address] [place] [address] [id number] Jun, Dental examination Z01.20 an d Dental caries K02.9 [facility] [address] [id number] [address] [place] [phone] May, Bipolar disorder, currently in remission, most recent episode unspecified F31.70 [facility] [address] [id number] [address] [place] [phone] May, Bipolar disorder, currently in remission, most recent episode unspecified F31.70 [facility] [address] [id number] [address] [place] [id number] May, Bipolar disorder, currently in remission, most recent episode unspecified F31.70 ; Moderate intellectual disability F71 and Attention-deficit hyperactivity disorder, predominantly inattentive type F90.0 [facility] [address] [id number] [address] [place] [phone] Apr, Bipolar disorder, unspecifie d F31.9 [facility] [address] [id number] [address] [place] [id number] Apr, [facility] [address] [id number] [address] [place] [phone] Apr, [facility] [address] [id number] [address] [place] [id number] Apr, [facility] [address] [facility] [place] [id number] [address] [place] [phone] March, [facility] [address] [facility] [place] [id number] [address] [place] [phone] March, Bipolar disorder, currently in remission, most recent episode unspecified F31.70 ; Moderate intellectual disability 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 and Attention-deficit hyperactivity disorder, predominantly inattentive type F90.0 [facility] [address] [id number] [address] [place] [phone] Feb, [facility] [address] [id number] [address] [place] [id number] Feb, Dental examination Z01.20 [facility] [address] [id number] [address] [place] [phone] Jan, [facility] [address] [id number] [address] [place] [phone] Jan, [facility] [address] [id number] [address] [place] [id number] Dec, [facility] [address] [id number] [address] [place] [id number] Nov, [facility] [address] [id number] [place] [address] [id number] Nov, Encounter for dental exam an d cleaning w/o abnormal findings Z01.20 [facility] [address] [id number] [address] [place] [id number] Nov, Dental examination Z01.20 [facility] [address] [id number] [address] [place] [phone] Oct, [facility] [address] [id number] [address] [place] [phone] Oct, Bipolar disorder, currently in remission, most recent episode unspecified F31.70 ; Moderate intellectual disability 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 and Attention-deficit hyperactivity disorder, predominantly inattentive type F90.0 [facility] [address] [id number] [address] [place] [id number] Sep, [facility] [address] [id number] [address] [place] [id number] Sep, [facility] [address] [id number] [address] [place] [phone] Aug, [facility] [address] [id number] [address] [place] [id number] 02 Aug, 2017 Attention-deficit hyperactiv ity disorder, predominantly inattentive type F90.0 ; Moderate intellectual disability F71 and Bipolar disorder F31.9 [facility] [address] [id number] [address] [place] [address] [id number] 11 Jul, 2017 Dental examination Z01.20 an d Dental caries K02.9 [facility] [address] [id number] [address] [place] [phone] 05 Jul, 2017 [facility] [address] [facility] [place] [id number] [address] [place] [id number] Jun, Bipolar disorder F31.9 ; Att ention-deficit hyperactivity disorder, predominantly inattentive type F90.0 and Moderate intellectual disability 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 [facility] [address] [id number] [address] [place] [phone] Jun, [facility] [address] [id number] [address] [place] [phone] May, [facility] [address] [facility] [place] [id number] [address] [place] [phone] Apr, [facility] [address] [facility] [place] [id number] [address] [place] [phone] March, Intermittent explosive disor jocelyn F63.81 ; Attention deficit hyperactivity disorder F90.9 and Bipolar disorder F31.9 [facility] [address] [id number] [address] [place] [phone] Feb, [facility] [address] [id number] [address] [place] [id number] Jan, [facility] [address] [facility] [place] [id number] [address] [place] [id number] 13 Dec, 2016 Encounter for immunization Z 23 [facility] [address] [id number] [address] [place] [id number] 13 Dec, 2016 Intermittent explosive disor jocelyn F63.81 ; Attention deficit hyperactivity disorder F90.9 and Bipolar disorder, currently in remission, most recent episode unspecified F31.70 [facility] [address] [id number] [address] [place] [phone] Nov, [facility] [address] [id number] [address] [place] [id number] Oct, [facility] [address] [id number] [address] [place] [id number] Oct, [facility] [address] [id number] [address] [place] [id number] Oct, Dental examination Z01.20 [facility] [address] [id number] [address] [place] [id number] Sep, [facility] [address] [id number] [address] [place] [id number] Sep, [facility] [address] [id number] [address] [place] [phone] Sep, Intermittent explosive disor jocelyn F63.81 ; Bipolar disorder F31.9 and Attention deficit hyperactivity disorder F90.9 [facility] [address] [id number] [address] [place] [phone] Aug, [facility] [address] [id number] [address] [place] [phone] Aug, [facility] [address] [id number] [address] [place] [id number] Aug, [facility] [address] [id number] [address] [place] [id number] Aug, Attention deficit hyperactiv ity disorder F90.9 [facility] [address] [id number] [address] [place] [phone] Jul, [facility] [address] [id number] [address] [place] [id number] Jun, [facility] [address] [id number] [address] [place] [phone] May, [facility] [address] [id number] [address] [place] [id number] Apr, [facility] [address] [facility] [place] [id number] [address] [place] [phone] Apr, Bipolar disorder F31.9 ; Att ention deficit hyperactivity disorder F90.9 and Intermittent explosive disorder F63.81 [facility] [address] [id number] [address] [place] [id number] March, [facility] [address] [id number] [address] [place] [phone] Feb, [facility] [address] [id number] [address] [place] [phone] Feb, [facility] [address] [facility] [place] [id number] [address] [place] [phone] Jan, [facility] [address] [id number] [address] [place] [id number] Jan, [facility] [address] [id number] [address] [place] [phone] Dec, [facility] [address] [facility] [place] [id number] [address] [place] [id number] Nov, [facility] [address] [id number] [address] [place] [phone] Nov, [facility] [address] [id number] [address] [place] [phone] Nov, Attention deficit hyperactiv ity disorder F90.9 ; Intermittent explosive disorder F63.81 and Bipolar disorder F31.9 [facility] [address] [id number] [address] [place] [phone] Oct, [facility] [address] [id number] [address] [place] [phone] Oct, [facility] [address] [id number] [address] [place] [phone] Sep, [facility] [address] [id number] [address] [place] [id number] Aug, [facility] [address] [id number] [address] [place] [id number] Jul, [facility] [address] [id number] [address] [place] [id number] Jul, [facility] [address] [id number] [address] [place] [phone] Jul, Anxiety, generalized 300.02 ; Bipolar disorder, unspecified 296.80 ; 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.00 ; 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 and Impulse control disorder, unspecified 312.30 [facility] [address] [id number] [address] [place] [id number] Jul, [facility] [address] [id number] [address] [place] [id number] Jun, [facility] [address] [id number] [address] [place] [phone] May, [facility] [address] [id number] [address] [place] [id number] Apr, [facility] [address] [facility] [place] [id number] [address] [place] [address] Apr, Bipolar disorder, unspecifie d 296.80 ; Generalized anxiety disorder 300.02 and 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.00 [facility] [address] [id number] [address] [place] [id number] Apr, [facility] [address] [facility] [place] [id number] [address] [place] [phone] March, [facility] [address] [facility] [place] [id number] [address] [place] [id number] March, [facility] [address] [facility] [place] [facility] [id number] [address] [place] [phone] March, [facility] [address] [id number] [address] [place] [address], [place] [address] March, [facility] [address] [id number] [address] [place] [address], [place] [address] 14 Feb, 2015 [facility] [address] [id number] [address] [place] [address], [place] [address] Feb, [facility] [address] [id number] [address] [place] [address], [place] [address] Jan, [facility] [address] [id number] [address] [place] [address], [place] [address] Jan, [facility] [address] [id number] [address] [place] [address], [place] [address] Jan, [facility] [address] [id number] [address] [place] [address], [place] [address] Jan, [facility] [address] [id number] [address] [place] [address], [place] [address] Jan, [facility] [address] [id number] [address] [place] [address], [place] [address] Dec, [facility] [address] [id number] [address] [place] [address], [place] [address] Dec, [facility] [address] [id number] [address] [place] [address], [place] [address] Nov, [facility] [address] [id number] [address] [place] [address], [place] [address] Nov, [facility] [address] [id number] [address] [place] [address], [place] [address] Nov, [facility] [address] [id number] [address] [place] [address], [place] [address] Oct, [facility] [address] [id number] [address] [place] [address], [place] [address] Oct, [facility] [address] [id number] [address] [place] [address], [place] [address] Oct, [facility] [address] [id number] [address] [place] [address], [place] [address] Oct, [facility] [address] [id number] [address] [place] [address], [place] [address] Oct, [facility] [address] [id number] [address] [place] [address], [place] [address] Oct, [facility] [address] [id number] [address] [place] [address], [place] [address] Sep, [facility] [address] [id number] [address] [place] [address], [place] [address] Sep, [facility] [address] [id number] [address] [place] [address], [place] [address] Sep, [facility] [address] [id number] [address] [place] [address], [place] [address] Aug, [facility] [address] [id number] [address] [place] [address], [place] [address] Aug, [facility] [address] [id number] [address] [place] [address], [place] [address] Jul, [facility] [address] [id number] [address] [place] [address], [place] [address] Jul, [facility] [address] [id number] [address] [place] [address], [place] [address] Jun, [facility] [address] [id number] [address] [place] [address], [place] [address] Jun, [facility] [address] [id number] [address] [place] [address], [place] [address] Jun, [facility] [address] [id number] [address] [place] [address], [place] [address] Jun, [facility] [address] [id number] [address] [place] [address], [place] [address] May, [facility] [address] [id number] [facility] [place] [address] May, [facility] [address] [id number] [facility] [place] [address] May, [facility] [address] [id number] [address] [place] [address], [place] [address] Apr, [facility] [address] [id number] [address] [place] [address], [place] [address] Apr, [facility] [address] [id number] [address] [place] [address], [place] [address] Apr, [facility] [address] [id number] [address] [place] [address], [place] [address] Apr, [facility] [address] [id number] [address] [place] [address], [place] [address] March, [facility] [address] [id number] [address] [place] [address], [place] [address] March, [facility] [address] [id number] [address] [place] [address], [place] [address] March, [facility] [address] [id number] [address] [place] [address], [place] [address] March, [facility] [address] [id number] [address] [place] [address], [place] [address] Feb, [facility] [address] [id number] [address] [place] [address], [place] [address] Feb, [facility] [address] [id number] [address] [place] [address], [place] [address] Jan, [facility] [address] [id number] [address] [place] [address], [place] [address] Jan, [facility] [address] [id number] [address] [place] [address], [place] [address] Jan, [facility] [address] [id number] [address] [place] [address], [place] [address] Jan, [facility] [address] [id number] [facility] [place] [address] Jan, [facility] [address] [id number] [address] [place] [address], [place] [address] Jan, [facility] [address] [id number] [address] [place] [address], [place] [address] Jan, [facility] [address] [id number] [address] [place] [address], [place] [address] Jan, [facility] [address] [id number] [address] [place] [address], [place] [address] Dec, [facility] [address] [id number] [address] [place] [address], [place] [address] Dec, [facility] [address] [id number] [address] [place] [address], [place] [address] Dec, [facility] [address] [id number] [address] [place] [address], [place] [address] Dec, [facility] [address] [id number] [address] [place] [address], [place] [address] Nov, [facility] [address] [id number] [address] [place] [address], [place] [address] Nov, [facility] [address] [id number] [address] [place] [address], [place] [address] Oct, [facility] [address] [id number] [address] [place] [address], [place] [address] Oct, [facility] [address] [id number] [address] [place] [address], [place] [address] Oct, [facility] [address] [id number] [address] [place] [address], [place] [address] Oct, [facility] [address] [id number] [address] [place] [address], [place] [address] Sep, [facility] [address] [id number] [address] [place] [address], [place] [address] Sep, [facility] [address] [id number] [address] [place] [address], [place] [address] Sep, [facility] [address] [id number] [address] [place] [address], [place] [address] Sep, [facility] [address] [id number] [address] [place] [address], [place] [address] Aug, [facility] [address] [id number] [address] [place] [address], [place] [address] Aug, [facility] [address] [id number] [address] [place] [address], [place] [address] Aug, [facility] [address] [address] [id number] [address] [place] [address], [place] [address] Jul, [facility] [address] [id number] [address] [place] [address], [place] [address] Jul, [facility] [address] [id number] [address] [place] [address], [place] [address] Jun, [facility] [address] [id number] [address] [place] [address], [place] [address] Jun, [facility] [address] [id number] [address] [place] [address], [place] [address] 16 May, 2013 [facility] [address] [id number] [address] [place] [address], [place] [address] May, [facility] [address] [id number] [address] [place] [address], [place] [address] Apr, [facility] [address] [id number] [address] [place] [address], [place] [address] March, [facility] [address] [id number] [address] [place] [address], [place] [address] March, [facility] [address] [id number] [address] [place] [address], [place] [address] Feb, [facility] [address] [id number] [address] [place] [address], [place] [address] Jan, [facility] [address] [id number] [address] [place] [address], [place] [address] Jan, [facility] [address] [id number] [address] [place] [address], [place] [address] Dec, [facility] [address] [id number] [address] [place] [address], [place] [address] Dec, [facility] [address] [id number] [address] [place] [address], [place] [address] Nov, [facility] [address] [id number] [address] [place] [address], [place] [address] Nov, [facility] [address] [id number] [address] [place] [address], [place] [address] Nov, [facility] [address] [id number] [address] [place] [address], [place] [address] Nov, [facility] [address] [id number] [address] [place] [address], [place] [address] Nov, [facility] [address] [id number] [address] [place] [address], [place] [address] Oct, [facility] [address] [id number] [address] [place] [address], [place] [address] Oct, [facility] [address] [id number] [address] [place] [address], [place] [address] Oct, [facility] [address] [id number] [address] [place] [address], [place] [address] Oct, [facility] [address] [id number] [address] [place] [address], [place] [address] Oct, [facility] [address] [id number] [address] [place] [address], [place] [address] 05 Oct, 2012 [facility] [address] [id number] [address] [place] [address], [place] [address] 05 Oct, 2012 [facility] [address] [id number] [address] [place] [address], [place] [address] Oct, [facility] [address] [id number] [address] [place] [address], [place] [address] Sep, [facility] [address] [id number] [address] [place] [address], [place] [address] Sep, [facility] [address] [id number] [address] [place] [address], [place] [address] Sep, [facility] [address] [id number] [address] [place] [address], [place] [address] Aug, [facility] [address] [id number] [address] [place] [address], [place] [address] Aug, [facility] [address] [id number] [address] [place] [address], [place] [address] Aug, [facility] [address] [id number] [address] [place] [address], [place] [address] Aug, [facility] [address] [id number] [address] [place] [address], [place] [address] Aug, [facility] [address] [id number] [address] [place] [address], [place] [address] Jul, [facility] [address] [id number] [address] [place] [address], [place] [address] 18 Jul, 2012 [facility] [address] [id number] [address] [place] [address], [place] [address] Jun, [facility] [address] [id number] [address] [place] [address], [place] [address] May, [facility] [address] [id number] [address] [place] [address], [place] [address] May, [facility] [address] [id number] [address] [place] [address], [place] [address] Apr, [facility] [address] [id number] [address] [place] [address], [place] [address] March, [facility] [address] [id number] [address] [place] [address], [place] [address] March, [facility] [address] [id number] [address] [place] [address], [place] [address] March, [facility] [address] [id number] [address] [place] [address], [place] [address] March, [facility] [address] [id number] [address] [place] [address], [place] [address] Feb, [facility] [address] [id number] [address] [place] [address], [place] [address] Feb, [facility] [address] [id number] [address] [place] [address], [place] [address] Jan, [facility] [address] [id number] [address] [place] [address], [place] [address] Dec, [facility] [address] [id number] [address] [place] [address], [place] [address] Dec, [facility] [address] [id number] [address] [place] [address], [place] [address] Dec, [facility] [address] [id number] [address] [place] [address], [place] [address] Nov, [facility] [address] [id number] [address] [place] [address], [place] [address] Nov, [facility] [address] [id number] [address] [place] [address], [place] [address] Nov, [facility] [address] [id number] [address] [place] [address], [place] [address] Oct, [facility] [address] [id number] [address] [place] [address], [place] [address] Sep, [facility] [address] [id number] [address] [place] [address] Aug, [facility] [address] [facility] [place] [id number] [address] [place] [address] Aug, [facility] [address] [facility] [place] [id number] [address] [place] [address] May, [facility] [address] [facility] [place] [id number] [address] [place] [address] Sep, [facility] [address] [facility] [place] [id number] [address] [place] [address] Sep, IMMUNIZATIONS No Known Immunizations SOCIAL HISTORY Never Assessed REASON FOR VISIT EMR-[facility] PLAN OF CARE VITAL SIGNS MEDICATIONS Medication Instructions Dosage Frequency Start Date End Date Duration S tatus Rozerem 8 mg take 1 tablet by Oral route 1 time per da y at bedtime Jan, Active clonidine 0.1 mg take 1 tablet (0.1 mg) by oral route 3 times per day Jan, Active Zyprexa Zydis 10 mg take [address] last on top of the tongue where it will dissolve, then swallow by Oral route 1 time per day take at 1600; may give 1 tablet if becomes agitated Oct, A ctive Vyvanse 50 mg 1 Capsule by Oral ro [place] 2 times per day in the morning and at noon, for ADHD Jan, Active Seroquel 200 mg 2 tablet by Oral route 1 time per day Jan, Active fluvoxamine 100 mg 3 tablet by Oral route 1 time per day Jan, Active Fish Oil by Oral route Jun, Acti ve Zyprexa 15 mg take 2 tablet by Oral route 1 time per d ay take at bedtime Jan, Active RESULTS No Results PROCEDURES No Known procedures INSTRUCTIONS MEDICATIONS ADMINISTERED No Known Medications MEDICAL (GENERAL) HISTORY Type Description Date Medical History bipolar Medical History adhd Medical History anxiety Surgical History No Surgical history information
--- OUTSIDE RECORDS SUMMARY | 2020-03-18 15:31 | XMS REPORT ---
Author Author Jose Cruz FELDMAN CARLOS Organization [facility] Address [address] [place] [address] Care Team Providers Care Drying Room Attendant Name Role Phone LIZETANGIE ANAYAYLA Unavailable PROBLEMS Type Condition ICD9-CM Code EXG57-CE Code Onset Dates Condition S tatus SNOMED Code Problem Bipolar disorder, unspecified 296.80 Active 24330887 Problem Bipolar disorder F31.9 Active 137 62770 Problem Bipolar I disorder, most recent episode (or current) mixed, moderate 296.62 Active 059256917 Problem Encounter for long-term (current) use of other medications V58.69 Active 300404304 Problem 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 Ac tive 77103948 Problem 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 314.00 Active 35894654 Problem Generalized anxiety disorder 300.02 A ctive 47947725 Problem Attention-deficit hyperactiv ity disorder, predominantly inattentive type F90.0 Active 53695735 Problem Intellectual disability F79 Active 91404704 Problem Attention deficit hyperactivity disorder F90.9 Active 567882286 Problem Intermittent explosive disorder F63.81 Active 25234609 Problem Moderate intellectual disability F71 Active 21537933 Problem Bipolar disorder, currently in remission, most recent episode unspecified F31.70 Active 36344555 ALLERGIES No Information ENCOUNTERS Encounter Location Date Diagnosis [facility] [address] [facility] [id number] [address] [place] [phone] Oct, [facility] [address] [facility] [id number] [address] [place] [phone] Oct, [facility] [address] [facility] [id number] [address] [place] [id number] Sep, Bipolar disorder, currently in remission, most recent episode unspecified F31.70 [facility] [address] [id number] [address] [place] [id number] Sep, 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 stat us requiring routine preventive dental care K08.9 and Arrested dental caries K02.3 [facility] [address] [id number] [address] [place] [phone] Sep, Bipolar disorder, currently in remission, most recent episode unspecified F31.70 ; Moderate intellectual disability F71 and Attention-deficit hyperactivity disorder, predominantly inattentive type F90.0 [facility] [address] [id number] [address] [place] [phone] Sep, Bipolar disorder, currently in remission, most recent episode unspecified F31.70 [facility] [address] [id number] [address] [place] [id number] Aug, Bipolar disorder, currently in remission, most recent episode unspecified F31.70 [facility] [address] [id number] [address] [place] [phone] Jul, Bipolar disorder, currently in remission, most recent episode unspecified F31.70 [facility] [address] [id number] [address] [place] [id number] Jul, Bipolar disorder, currently in remission, most recent episode unspecified F31.70 [facility] [address] [id number] [address] [place] [phone] Jun, [facility] [address] [id number] [address] [place] [id number] Jun, Bipolar disorder, currently in remission, most recent episode unspecified F31.70 [facility] [address] [id number] [address] [place] [address] [id number] Jun, Dental examination Z01.20 an d Dental caries K02.9 [facility] [address] [id number] [address] [place] [phone] May, Bipolar disorder, currently in remission, most recent episode unspecified F31.70 [facility] [address] [id number] [address] [place] [id number] May, Bipolar disorder, currently in remission, most recent episode unspecified F31.70 [facility] [address] [id number] [address] [place] [id number] May, Bipolar disorder, currently in remission, most recent episode unspecified F31.70 ; Moderate intellectual disability F71 and Attention-deficit hyperactivity disorder, predominantly inattentive type F90.0 [facility] [address] [id number] [address] [place] [id number] Apr, Bipolar disorder, unspecifie d F31.9 [facility] [address] [id number] [address] [place] [phone] Apr, [facility] [address] [id number] [address] [place] [phone] Apr, [facility] [address] [id number] [address] [place] [phone] Apr, [facility] [address] [id number] [address] [place] [phone] March, [facility] [address] [id number] [address] [place] [id number] March, Bipolar disorder, currently in remission, most recent episode unspecified F31.70 ; Moderate intellectual disability F71 and Attention-deficit hyperactivity disorder, predominantly inattentive type F90.0 [facility] [address] [id number] [address] [place] [phone] Feb, [facility] [address] [id number] [address] [place] [address] [id number] Feb, Dental examination Z01.20 [facility] [address] [id number] [address] [place] [phone] Jan, [facility] [address] [id number] [address] [place] [phone] Jan, [facility] [address] [id number] [address] [place] [id number] Dec, [facility] [address] [id number] [address] [place] [phone] Nov, [facility] [address] [id number] [address] [place] [address] [id number] Nov, Encounter for dental exam an d cleaning w/o abnormal findings Z01.20 [facility] [address] [id number] [address] [place] [address] [id number] Nov, Dental examination Z01.20 [facility] [address] [id number] [address] [place] [phone] Oct, [facility] [address] [id number] [address] [place] [id number] Oct, Bipolar disorder, currently in remission, most recent episode unspecified F31.70 ; Moderate intellectual disability F71 and Attention-deficit hyperactivity disorder, predominantly inattentive type F90.0 [facility] [address] [id number] [address] [place] [phone] Sep, [facility] [address] [id number] [address] [place] [phone] Sep, [facility] [address] [id number] [address] [place] [phone] Aug, [facility] [address] [id number] [address] [place] [phone] Aug, Attention-deficit hyperactiv ity disorder, predominantly inattentive type F90.0 ; Moderate intellectual disability F71 and Bipolar disorder F31.9 [facility] [address] [id number] [address] [place] [id number] Jul, Dental examination Z01.20 an d Dental caries K02.9 [facility] [address] [id number] [address] [place] [id number] Jul, [facility] [address] [id number] [address] [place] [id number] Jun, Bipolar disorder F31.9 ; Att ention-deficit hyperactivity disorder, predominantly inattentive type F90.0 and Moderate intellectual disability F71 [facility] [address] [id number] [address] [place] [phone] Jun, [facility] [address] [id number] [address] [place] [phone] May, [facility] [address] [id number] [address] [place] [phone] 16 Apr, 2017 [facility] [address] [facility] [id number] [address] [place] [id number] March, Intermittent explosive disor jocelyn F63.81 ; Attention deficit hyperactivity disorder F90.9 and Bipolar disorder F31.9 [facility] [address] [id number] [address] [place] [phone] Feb, [facility] [address] [facility] [id number] [address] [place] [phone] Jan, [facility] [address] [facility] [id number] [address] [place] [id number] 13 Dec, 2016 Encounter for immunization Z 23 [facility] [address] [facility] [id number] [address] [place] [id number] 13 Dec, 2016 Intermittent explosive disor jocelyn F63.81 ; Attention deficit hyperactivity disorder F90.9 and Bipolar disorder, currently in remission, most recent episode unspecified F31.70 [facility] [address] [facility] [id number] [address] [place] [id number] Nov, [facility] [address] [facility] [id number] [address] [place] [id number] Oct, [facility] [address] [facility] [id number] [address] [place] [id number] Oct, [facility] [address] [id number] [address] [place] [address] [id number] Oct, Dental examination Z01.20 [facility] [address] [facility] [id number] [address] [place] [phone] Sep, [facility] [address] [facility] [id number] [address] [place] [id number] Sep, [facility] [address] [id number] [address] [place] [id number] Sep, Intermittent explosive disor jocelyn F63.81 ; Bipolar disorder F31.9 and Attention deficit hyperactivity disorder F90.9 [facility] [address] [id number] [address] [place] [phone] Aug, [facility] [address] [id number] [address] [place] [phone] Aug, [facility] [address] [id number] [address] [place] [phone] Aug, [facility] [address] [id number] [address] [place] [phone] Aug, Attention deficit hyperactiv ity disorder F90.9 [facility] [address] [id number] [address] [place] [phone] Jul, [facility] [address] [id number] [address] [place] [phone] Jun, [facility] [address] [id number] [address] [place] [phone] May, [facility] [address] [id number] [address] [place] [id number] Apr, [facility] [address] [id number] [address] [place] [phone] Apr, Bipolar disorder F31.9 ; Att ention deficit hyperactivity disorder F90.9 and Intermittent explosive disorder F63.81 [facility] [address] [id number] [address] [place] [phone] March, [facility] [address] [id number] [address] [place] [phone] Feb, [facility] [address] [id number] [address] [place] [phone] Feb, [facility] [address] [id number] [address] [place] [phone] Jan, [facility] [address] [facility] [id number] [address] [place] [phone] Jan, [facility] [address] [facility] [id number] [address] [place] [phone] Dec, [facility] [address] [place] [id number] [address] [place] [phone] Nov, [facility] [address] [place] [id number] [address] [place] [phone] Nov, [facility] [address] [place] [id number] [address] [place] [id number] Nov, Attention deficit hyperactiv ity disorder F90.9 ; Intermittent explosive disorder F63.81 and Bipolar disorder F31.9 [facility] [address] [place] [id number] [address] [place] [phone] Oct, [facility] [address] [place] [id number] [address] [place] [phone] Oct, [facility] [address] [place] [id number] [address] [place] [phone] Sep, [facility] [address] [place] [id number] [address] [place] [phone] Aug, [facility] [address] [place] [id number] [address] [place] [phone] Jul, [facility] [address] [place] [id number] [address] [place] [id number] Jul, [facility] [address] [place] [id number] [address] [place] [id number] Jul, Anxiety, generalized 300.02 ; Bipolar disorder, unspecified 296.80 ; 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.00 ; 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 and Impulse control disorder, unspecified 312.30 [facility] [address] [place] [id number] [address] [place] [phone] Jul, [facility] [address] [id number] [address] [place] [phone] Jun, [facility] [address] [id number] [address] [place] [phone] May, [facility] [address] [id number] [address] [place] [id number] Apr, [facility] [address] [id number] [address] [place] [phone] Apr, Bipolar disorder, unspecifie d 296.80 ; Generalized anxiety disorder 300.02 and 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.00 [facility] [address] [id number] [address] [place] [id number] Apr, [facility] [address] [id number] [address] [place] [phone] March, [facility] [address] [id number] [address] [place] [phone] March, [facility] [address] [id number] [address] [place] [phone] March, [facility] [address] [id number] [address] [place] [phone] March, [facility] [address] [id number] [address] [place] [phone] Feb, [facility] [address] [id number] [address] [place] [phone] Feb, [facility] [address] [id number] [address] [place] [phone] Jan, [facility] [address] [id number] [address] [place] [phone] Jan, [facility] [address] [id number] [address] [place] [phone] Jan, [facility] [address] [id number] [address] [place] [address], [place] [phone] Jan, [facility] [address] [id number] [address] [place] [address], [place] [id number] Jan, [facility] [address] [id number] [address] [place] [address], [place] [id number] Dec, [facility] [address] [id number] [address] [place] [address], [place] [address] Dec, [facility] [address] [id number] [address] [place] [address], [place] [phone] Nov, [facility] [address] [id number] [address] [place] [address], [place] [address] Nov, [facility] [address] [id number] [address] [place] [address], [place] [id number] Nov, [facility] [address] [id number] [address] [place] [address], [place] [address] Oct, [facility] [address] [id number] [address] [place] [address], [place] [phone] Oct, [facility] [address] [id number] [address] [place] [address], [place] [address] Oct, [facility] [address] [id number] [address] [place] [address], [place] [id number] Oct, [facility] [address] [id number] [address] [place] [address], [place] [address] Oct, [facility] [address] [id number] [address] [place] [address], [place] [id number] Oct, [facility] [address] [id number] [address] [place] [address], [place] [address] Sep, [facility] [address] [id number] [address] [place] [address], [place] [address] Sep, [facility] [address] [id number] [address] [place] [address], [place] [address] Sep, [facility] [address] [id number] [address] [place] [address], [place] [address] Aug, [facility] [address] [id number] [address] [place] [address], [place] [address] Aug, [facility] [address] [id number] [address] [place] [address], [place] [address] Jul, [facility] [address] [id number] [address] [place] [address], [place] [address] Jul, [facility] [address] [id number] [address] [place] [address], [place] [address] Jun, [facility] [address] [id number] [address] [place] [address], [place] [id number] Jun, [facility] [address] [id number] [address] [place] [address], [place] [address] Jun, [facility] [address] [id number] [address] [place] [address], [place] [address] Jun, [facility] [address] [id number] [address] [place] [address], [place] [address] May, [facility] [address] [id number] [address] [place] [address], [place] [address] May, [facility] [address] [id number] [address] [place] [address], [place] [address] May, [facility] [address] [id number] [address] [place] [address], [place] [id number] Apr, [facility] [address] [id number] [address] [place] [address], [place] [address] Apr, [facility] [address] [id number] [address] [place] [address], [place] [address] Apr, [facility] [address] [id number] [address] [place] [address], [place] [address] Apr, [facility] [address] [id number] [address] [place] [address], [place] [address] March, [facility] [address] [id number] [address] [place] [address], [place] [address] March, [facility] [address] [id number] [address] [place] [address], [place] [id number] March, [facility] [address] [id number] [address] [place] [address], [place] [address] March, [facility] [address] [id number] [address] [place] [address], [place] [address] Feb, [facility] [address] [id number] [address] [place] [address], [place] [id number] Feb, [facility] [address] [id number] [address] [place] [address], [place] [address] Jan, [facility] [address] [id number] [address] [place] [address], [place] [address] Jan, [facility] [address] [id number] [address] [place] [address], [place] [address] Jan, [facility] [address] [id number] [address] [place] [address], [place] [address] Jan, [facility] [address] [id number] [address] [place] [address], [place] [address] Jan, [facility] [address] [id number] [address] [place] [address], [place] [address] Jan, [facility] [address] [id number] [address] [place] [address], [place] [address] Jan, [facility] [address] [id number] [address] [place] [address], [place] [address] Jan, [facility] [address] [id number] [address] [place] [address], [place] [address] Dec, [facility] [address] [id number] [address] [place] [address], [place] [address] Dec, [facility] [address] [id number] [address] [place] [address], [place] [address] Dec, [facility] [address] [id number] [address] [place] [address], [place] [address] Dec, [facility] [address] [id number] [address] [place] [address], [place] [address] Nov, [facility] [address] [id number] [address] [place] [address], [place] [address] Nov, [facility] [address] [id number] [address] [place] [address], [place] [id number] Oct, [facility] [address] [id number] [address] [place] [address], [place] [id number] Oct, [facility] [address] [id number] [address] [place] [address], [place] [id number] Oct, [facility] [address] [id number] [address] [place] [address], [place] [id number] Oct, [facility] [address] [id number] [address] [place] [address], [place] [id number] Sep, [facility] [address] [id number] [address] [place] [address], [place] [id number] Sep, [facility] [address] [id number] [address] [place] [address], [place] [id number] Sep, [facility] [address] [id number] [address] [place] [address], [place] [id number] Sep, [facility] [address] [id number] [address] [place] [address], [place] [id number] Aug, [facility] [address] [id number] [address] [place] [address], [place] [id number] Aug, [facility] [address] [id number] [address] [place] [address], [place] [id number] Aug, [facility] [address] [id number] [address] [place] [address], [place] [id number] Jul, [facility] [address] [id number] [address] [place] [address], [place] [id number] Jul, [facility] [address] [id number] [address] [place] [address], [place] [id number] Jun, [facility] [address] [id number] [address] [place] [address], [place] [id number] Jun, [facility] [address] [id number] [address] [place] [address], [place] [id number] May, [facility] [address] [id number] [address] [place] [address], [place] [id number] May, [facility] [address] [id number] [address] [place] [address], [place] [id number] Apr, [facility] [address] [id number] [address] [place] [address], [place] [id number] March, [facility] [address] [id number] [address] [place] [address], [place] [id number] March, [facility] [address] [id number] [address] [place] [address], [place] [id number] Feb, [facility] [address] [id number] [address] [place] [address], [place] [id number] Jan, [facility] [address] [id number] [address] [place] [address], [place] [id number] Jan, [facility] [address] [id number] [address] [place] [address], [place] [id number] Dec, [facility] [address] [id number] [address] [place] [address], [place] [id number] Dec, [facility] [address] [id number] [address] [place] [address], [place] [id number] Nov, [facility] [address] [id number] [address] [place] [address], [place] [id number] Nov, [facility] [address] [id number] [address] [place] [address], [place] [id number] 24 Nov, 2012 [facility] [address] [id number] [address] [place] [address], [place] [id number] Nov, [facility] [address] [id number] [address] [place] [address], [place] [address] Nov, [facility] [address] [id number] [address] [place] [address], [place] [id number] Oct, [facility] [address] [id number] [address] [place] [address], [place] [id number] Oct, [facility] [address] [id number] [address] [place] [address], [place] [address] Oct, [facility] [address] [id number] [address] [place] [address], [place] [id number] Oct, [facility] [address] [id number] [address] [place] [address], [place] [id number] Oct, [facility] [address] [id number] [address] [place] [address], [place] [id number] Oct, [facility] [address] [id number] [address] [place] [address], [place] [id number] 05 Oct, 2012 [facility] [address] [id number] [address] [place] [address], [place] [address] Oct, [facility] [address] [id number] [address] [place] [address], [place] [id number] Sep, [facility] [address] [id number] [address] [place] [address], [place] [id number] Sep, [facility] [address] [id number] [address] [place] [address], [place] [address] Sep, [facility] [address] [id number] [address] [place] [address], [place] [address] Aug, [facility] [address] [id number] [address] [place] [address], [place] [id number] Aug, [facility] [address] [id number] [address] [place] [address], [place] [address] Aug, [facility] [address] [id number] [address] [place] [address], [place] [id number] Aug, [facility] [address] [id number] [address] [place] [address], [place] [address] Aug, [facility] [address] [id number] [address] [place] [address], [place] [address] Jul, [facility] [address] [id number] [address] [place] [address], [place] [address] Jul, [facility] [address] [id number] [address] [place] [address], [place] [address] Jun, [facility] [address] [id number] [address] [place] [address], [place] [address] May, [facility] [address] [id number] [address] [place] [address], [place] [address] May, [facility] [address] [id number] [address] [place] [address], [place] [address] Apr, [facility] [address] [id number] [address] [place] [address], [place] [address] March, [facility] [address] [id number] [address] [place] [address], [place] [address] March, [facility] [address] [id number] [address] [place] [address], [place] [address] March, [facility] [address] [id number] [address] [place] [address], [place] [address] March, [facility] [address] [id number] [address] [place] [address], [place] [id number] Feb, [facility] [address] [id number] [address] [place] [address], [place] [id number] Feb, [facility] [address] [id number] [address] [place] [id number] Jan, [facility] [address] [id number] [address] [place] [id number] Dec, [facility] [address] [id number] [address] [place] [phone] Dec, [facility] [address] [id number] [address] [place] [phone] Dec, [facility] [address] [id number] [address] [place] [phone] Nov, [facility] [address] [id number] [address] [place] [phone] Nov, [facility] [address] [id number] [address] [place] [phone] Nov, [facility] [address] [id number] [address] [place] [phone] Oct, [facility] [address] [id number] [address] [place] [phone] Sep, [facility] [address] [id number] [address] [place] [id number] Aug, [facility] [address] [id number] [address] [place] [phone] Aug, [facility] [address] [id number] [address] [place] [phone] May, [facility] [address] [id number] [address] [place] [phone] Sep, [facility] [address] [id number] [address] [place] [phone] Sep, IMMUNIZATIONS No Known Immunizations SOCIAL HISTORY Never Assessed REASON FOR VISIT Tiny PLAN OF CARE VITAL SIGNS MEDICATIONS Unknown Medications RESULTS No Results PROCEDURES No Known procedures INSTRUCTIONS MEDICATIONS ADMINISTERED No Known Medications MEDICAL (GENERAL) HISTORY Type Description Date Medical History bipolar Medical History adhd Medical History anxiety Surgical History No Surgical history information
--- OUTSIDE RECORDS SUMMARY | 2020-03-18 15:31 | XMS REPORT ---
Author Author Jose Cruz Mercer Doctor Organization [facility] Address Unknown Phone Unavailable Care Team Providers Care Heel Builder Name Role Phone Migration, Doctor Unavailable Unavailable PROBLEMS Type Condition ICD9-CM Code [id number] Code Onset Dates Condition S tatus SNOMED Code Problem 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 Ac tive 57227336 Problem Encounter for long-term (current) use of other medications V58.69 Active 748855836 Problem Bipolar disorder, unspecified 296.80 Active 47222068 Problem Bipolar I disorder, most recent episode (or current) mixed, moderate 296.62 Active 786605068 Problem Bipolar disorder F31.9 Active 137 13187 Problem Intellectual disability F79 Active 59705038 Problem Generalized anxiety disorder 300.02 A ctive 20857842 Problem Attention-deficit hyperactiv ity disorder, predominantly inattentive type F90.0 Active 71222685 Problem 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 314.00 Active 98406955 Problem Intermittent explosive disorder F63.81 Active 47076227 Problem Attention deficit hyperactivity disorder F90.9 Active 759301757 Problem Bipolar disorder, currently in remission, most recent episode unspecified F31.70 Active 81112450 Problem Moderate intellectual disability F71 Active 23318511 ALLERGIES No Information ENCOUNTERS Encounter Location Date Diagnosis [place] [address] [place] [id number] [address] [place] [id number] Feb, [place] [address] [place] [id number] [address] [place] [address] Jan, Bipolar disorder F31.9 [place] [address] [address] [facility] [id number] [address] [place] [id number] Jan, Bipolar disorder F31.9 [place] [address] [place] [id number] [address] [place] [address] Jan, Dental examination Z01.20 ; 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 status requiring routine preventive dental care K08.9 and Caries K02.9 [place] [address] [place] [id number] [address] [place] [id number] Jan, [facility] [address] [id number] [address] [place] [id number] Jan, Bipolar disorder F31.9 ; Mod erate intellectual disability F71 and Attention-deficit hyperactivity disorder, predominantly inattentive type F90.0 [facility] [address] [id number] [address] [place] [id number] Dec, Bipolar disorder, currently in remission, most recent episode unspecified F31.70 [facility] [address] [id number] [address] [place] [id number] Dec, Bipolar disorder, currently in remission, most recent episode unspecified F31.70 [facility] [address] [id number] [address] [place] [address] Dec, Bipolar disorder, currently in remission, most recent episode unspecified F31.70 [facility] [address] [id number] [address] [place] [id number] Dec, [facility] [address] [id number] [address] [place] [id number] Dec, Bipolar disorder, currently in remission, most recent episode unspecified F31.70 [facility] [address] [id number] [address] [place] [id number] Nov, Bipolar disorder, currently in remission, most recent episode unspecified F31.70 [facility] [address] [id number] [address] [place] [id number] Nov, [facility] [address] [id number] [address] [place] [id number] Nov, [facility] [address] [facility] [id number] [address] [place] [address] Nov, Bipolar disorder, currently in remission, most recent episode unspecified F31.70 [facility] [address] [id number] [address] [place] [id number] Nov, Bipolar disorder, currently in remission, most recent episode unspecified F31.70 [facility] [address] [id number] [address] [place] [address] Oct, High risk medication use Z79 .899 ; Bipolar disorder F31.9 ; Moderate intellectual disability F71 and Attention-deficit hyperactivity disorder, predominantly inattentive type F90.0 [facility] [address] [id number] [address] [place] [id number] Oct, [facility] [address] [id number] [address] [place] [id number] Sep, Bipolar disorder, currently in remission, most recent episode unspecified F31.70 [facility] [address] [id number] [address] [place] [address] [id number] Sep, 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 stat us requiring routine preventive dental care K08.9 and Arrested dental caries K02.3 [facility] [address] [id number] [address] [place] [id number] Sep, Bipolar disorder, currently in remission, most recent episode unspecified F31.70 ; Moderate intellectual disability F71 and Attention-deficit hyperactivity disorder, predominantly inattentive type F90.0 [facility] [address] [id number] [address] [place] [id number] Sep, Bipolar disorder, currently in remission, most recent episode unspecified F31.70 [facility] [address] [id number] [address] [place] [id number] Aug, Bipolar disorder, currently in remission, most recent episode unspecified F31.70 [facility] [address] [id number] [address] [place] [id number] 13 Jul, 2018 Bipolar disorder, currently in remission, most recent episode unspecified F31.70 [facility] [address] [id number] [address] [place] [id number] Jul, Bipolar disorder, currently in remission, most recent episode unspecified F31.70 [facility] [address] [id number] [address] [place] [id number] Jun, [facility] [address] [id number] [address] [place] [id number] Jun, Bipolar disorder, currently in remission, most recent episode unspecified F31.70 [facility] [address] [id number] [address] [place] [id number] Jun, Dental examination Z01.20 an d Dental caries K02.9 [facility] [address] [id number] [address] [place] [id number] May, Bipolar disorder, currently in remission, most recent episode unspecified F31.70 [facility] [address] [id number] [address] [place] [id number] May, Bipolar disorder, currently in remission, most recent episode unspecified F31.70 [facility] [address] [id number] [address] [place] [id number] May, Bipolar disorder, currently in remission, most recent episode unspecified F31.70 ; Moderate intellectual disability F71 and Attention-deficit hyperactivity disorder, predominantly inattentive type F90.0 [facility] [address] [id number] [address] [place] [id number] Apr, Bipolar disorder, unspecifie d F31.9 [facility] [address] [id number] [address] [place] [id number] Apr, [facility] [address] [id number] [address] [place] [id number] Apr, [facility] [address] [id number] [address] [place] [id number] Apr, [facility] [address] [facility] [id number] [address] [place] [id number] March, [facility] [address] [facility] [id number] [address] [place] [id number] March, Bipolar disorder, currently in remission, most recent episode unspecified F31.70 ; Moderate intellectual disability F71 and Attention-deficit hyperactivity disorder, predominantly inattentive type F90.0 [facility] [address] [id number] [address] [place] [id number] Feb, [facility] [address] [id number] [address] [place] [id number] Feb, Dental examination Z01.20 [facility] [address] [id number] [address] [place] [id number] Jan, [facility] [address] [id number] [address] [place] [id number] Jan, [facility] [address] [id number] [address] [place] [id number] Dec, [facility] [address] [id number] [address] [place] [id number] Nov, [facility] [id number] [place] [address] [id number] Nov, Encounter for dental exam an d cleaning w/o abnormal findings Z01.20 [facility] [address] [id number] [address] [place] [id number] Nov, Dental examination Z01.20 [facility] [address] [id number] [address] [place] [id number] Oct, [facility] [address] [id number] [address] [place] [id number] Oct, Bipolar disorder, currently in remission, most recent episode unspecified F31.70 ; Moderate intellectual disability F71 and Attention-deficit hyperactivity disorder, predominantly inattentive type F90.0 [facility] [address] [id number] [address] [place] [id number] Sep, [facility] [address] [id number] [address] [place] [id number] Sep, [facility] [address] [id number] [address] [place] [id number] Aug, [facility] [address] [id number] [address] [place] [id number] 02 Aug, 2017 Attention-deficit hyperactiv ity disorder, predominantly inattentive type F90.0 ; Moderate intellectual disability F71 and Bipolar disorder F31.9 [facility] [address] [id number] [address] [place] [address] [id number] 11 Jul, 2017 Dental examination Z01.20 an d Dental caries K02.9 [facility] [address] [id number] [address] [place] [id number] [address], [address] [facility] [address] [facility] [id number] [address] [place] [id number] Jun, Bipolar disorder F31.9 ; Att ention-deficit hyperactivity disorder, predominantly inattentive type F90.0 and Moderate intellectual disability F71 [facility] [address] [id number] [address] [place] [id number] Jun, [facility] [address] [id number] [address] [place] [id number] May, [facility] [address] [facility] [id number] [address] [place] [id number] Apr, [facility] [address] [facility] [id number] [address] [place] [id number] March, Intermittent explosive disor jocelyn F63.81 ; Attention deficit hyperactivity disorder F90.[address] [facility] [address] [id number] [address] [place] [id number] Feb, [facility] [address] [id number] [address] [place] [id number] Jan, [facility] [address] [facility] [id number] [address] [place] [id number] 13 Dec, 2016 Encounter for immunization Z 23 [facility] [address] [id number] [address] [place] [id number] 13 Dec, 2016 Intermittent explosive disor jocelyn F63.81 ; Attention deficit hyperactivity disorder F90.9 and Bipolar disorder, currently in remission, most recent episode unspecified F31.70 [facility] [address] [id number] [address] [place] [id number] Nov, [facility] [address] [id number] [address] [place] [id number] Oct, [facility] [address] [id number] [address] [place] [id number] Oct, [facility] [address] [id number] [address] [place] [address] [id number] Oct, Dental examination Z01.20 [facility] [address] [id number] [address] [place] [id number] Sep, [facility] [address] [id number] [address] [place] [id number] Sep, [facility] [address] [id number] [address] [place] [id number] Sep, Intermittent explosive disor jocelyn F63.81 ; Bipolar disorder F31.9 and Attention deficit hyperactivity disorder F90.9 [facility] [address] [id number] [address] [place] [id number] Aug, [facility] [address] [id number] [address] [place] [id number] Aug, [facility] [address] [id number] [address] [place] [id number] Aug, [facility] [address] [id number] [address] [place] [id number] Aug, Attention deficit hyperactiv ity disorder F90.9 [facility] [address] [id number] [address] [place] [id number] Jul, [facility] [address] [id number] [address] [place] [id number] Jun, [facility] [address] [id number] [address] [place] [id number] May, [facility] [address] [id number] [address] [place] [id number] Apr, [facility] [address] [facility] [id number] [address] [place] [id number] Apr, Bipolar disorder F31.9 ; Att ention deficit hyperactivity disorder F90.9 and Intermittent explosive disorder F63.81 [facility] [address] [id number] [address] [place] [id number] March, [facility] [address] [id number] [address] [place] [id number] Feb, [facility] [address] [id number] [address] [place] [id number] Feb, [facility] [address] [facility] [id number] [address] [place] [id number] Jan, [facility] [address] [id number] [address] [place] [id number] Jan, [facility] [address] [id number] [address] [place] [id number] Dec, [facility] [address] [facility] [id number] [address] [place] [id number] Nov, [facility] [address] [id number] [address] [place] [id number] Nov, [facility] [address] [id number] [address] [place] [id number] Nov, Attention deficit hyperactiv ity disorder F90.9 ; Intermittent explosive disorder F63.[address] [facility] [address] [id number] [address] [place] [id number] Oct, [facility] [address] [id number] [address] [place] [id number] Oct, [facility] [address] [id number] [address] [place] [id number] Sep, [facility] [address] [id number] [address] [place] [id number] Aug, [facility] [address] [id number] [address] [place] [id number] Jul, [facility] [address] [id number] [address] [place] [id number] Jul, [facility] [address] [id number] [address] [place] [id number] Jul, Anxiety, generalized 300.02 ; Bipolar disorder, unspecified 296.80 ; 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.00 ; 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 and Impulse control disorder, unspecified 312.30 [facility] [address] [id number] [address] [place] [id number] Jul, [facility] [address] [id number] [address] [place] [id number] Jun, [facility] [address] [id number] [address] [place] [id number] May, [facility] [address] [id number] [address] [place] [id number] Apr, [facility] [address] [facility] [id number] [address] [place] [id number] Apr, Bipolar disorder, unspecifie d 296.80 ; Generalized anxiety disorder 300.02 and 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.00 [facility] [address] [id number] [address] [place] [id number] Apr, [facility] [address] [facility] [id number] [address] [place] [id number] March, [facility] [address] [facility] [id number] [address] [place] [id number] March, [facility] [address] [facility] [id number] [address] [place] [id number] March, [facility] [address] [id number] [address] [place] [address], [place] [address] March, [facility] [address] [id number] [address] [place] [address], [place] [address] 14 Feb, 2015 [facility] [address] [id number] [address] [place] [address], [place] [address] Feb, [facility] [address] [id number] [address] [place] [address], [place] [address] Jan, [facility] [address] [id number] [address] [place] [address], [place] [address] Jan, [facility] [address] [id number] [address] [place] [address], [place] [address] Jan, [facility] [address] [id number] [address] [place] [address], [place] [address] Jan, [facility] [address] [id number] [address] [place] [address], [place] [address] Jan, [facility] [address] [id number] [address] [place] [address], [place] [address] Dec, [facility] [address] [id number] [address] [place] [address], [place] [address] Dec, [facility] [address] [id number] [address] [place] [address], [place] [address] Nov, [facility] [address] [id number] [address] [place] [address], [place] [address] Nov, [facility] [address] [id number] [address] [place] [address], [place] [address] Nov, [facility] [address] [id number] [address] [place] [address], [place] [address] Oct, [facility] [address] [id number] [address] [place] [address], [place] [address] Oct, [facility] [address] [id number] [address] [place] [address], [place] [address] Oct, [facility] [address] [id number] [address] [place] [address], [place] [address] Oct, [facility] [address] [id number] [address] [place] [address], [place] [address] Oct, [facility] [address] [id number] [address] [place] [address], [place] [address] Oct, [facility] [address] [id number] [address] [place] [address], [place] [address] Sep, [facility] [address] [id number] [address] [place] [address], [place] [address] Sep, [facility] [address] [id number] [address] [place] [address], [place] [address] Sep, [facility] [address] [id number] [address] [place] [address], [place] [address] Aug, [facility] [address] [id number] [address] [place] [address], [place] [address] Aug, [facility] [address] [id number] [address] [place] [address], [place] [address] Jul, [facility] [address] [id number] [address] [place] [address], [place] [address] Jul, [facility] [address] [id number] [address] [place] [address], [place] [address] Jun, [facility] [address] [id number] [address] [place] [address], [place] [address] Jun, [facility] [address] [id number] [address] [place] [address], [place] [address] Jun, [facility] [address] [id number] [address] [place] [address], [place] [address] Jun, [facility] [address] [id number] [address] [place] [address], [place] [address] May, [facility] [address] [id number] [facility] [place] [address] May, [facility] [address] [id number] [facility] [place] [address] May, [facility] [address] [id number] [address] [place] [address], [place] [address] Apr, [facility] [address] [id number] [address] [place] [address], [place] [address] Apr, [facility] [address] [id number] [address] [place] [address], [place] [address] Apr, [facility] [address] [id number] [address] [place] [address], [place] [address] Apr, [facility] [address] [id number] [address] [place] [address], [place] [address] March, [facility] [address] [id number] [address] [place] [address], [place] [address] March, [facility] [address] [id number] [address] [place] [address], [place] [address] March, [facility] [address] [id number] [address] [place] [address], [place] [address] March, [facility] [address] [id number] [address] [place] [address], [place] [address] Feb, [facility] [address] [id number] [address] [place] [address], [place] [address] Feb, [facility] [address] [id number] [address] [place] [address], [place] [address] Jan, [facility] [address] [id number] [address] [place] [address], [place] [address] Jan, [facility] [address] [id number] [address] [place] [address], [place] [address] Jan, [facility] [address] [id number] [address] [place] [address], [place] [address] Jan, [facility] [address] [id number] [facility] [place] [address] Jan, [facility] [address] [id number] [address] [place] [address], [place] [address] Jan, [facility] [address] [id number] [address] [place] [address], [place] [address] Jan, [facility] [address] [id number] [address] [place] [address], [place] [address] Jan, [facility] [address] [id number] [address] [place] [address], [place] [address] Dec, [facility] [address] [id number] [address] [place] [address], [place] [address] Dec, [facility] [address] [id number] [address] [place] [address], [place] [address] Dec, [facility] [address] [id number] [address] [place] [address], [place] [address] Dec, [facility] [address] [id number] [address] [place] [address], [place] [address] Nov, [facility] [address] [id number] [address] [place] [address], [place] [address] Nov, [facility] [address] [id number] [address] [place] [address], [place] [address] Oct, [facility] [address] [id number] [address] [place] [address], [place] [address] Oct, [facility] [facility] [address] [id number] [address] [place] [address], [place] [address] Oct, [facility] [address] [id number] [address] [place] [address], [place] [address] Oct, [facility] [address] [id number] [address] [place] [address], [place] [address] Sep, [facility] [address] [id number] [address] [place] [address], [place] [address] Sep, [facility] [address] [id number] [address] [place] [address], [place] [address] Sep, [facility] [address] [id number] [address] [place] [address], [place] [address] Sep, [facility] [address] [id number] [address] [place] [address], [place] [address] Aug, [facility] [address] [id number] [address] [place] [address], [place] [address] Aug, [facility] [address] [id number] [address] [place] [address], [place] [address] Aug, [facility] [address] [id number] [address] [place] [address], [place] [address] Jul, [facility] [address] [id number] [address] [place] [address], [place] [address] Jul, [facility] [address] [id number] [address] [place] [address], [place] [address] Jun, [facility] [address] [id number] [address] [place] [address], [place] [address] Jun, [facility] [address] [id number] [address] [place] [address], [place] [address] 16 May, 2013 [facility] [address] [id number] [address] [place] [address], [place] [address] May, [facility] [address] [id number] [address] [place] [address], [place] [address] Apr, [facility] [address] [id number] [address] [place] [address], [place] [address] March, [facility] [address] [id number] [address] [place] [address], [place] [address] March, [facility] [address] [id number] [address] [place] [address], [place] [address] Feb, [facility] [address] [id number] [address] [place] [address], [place] [address] Jan, [facility] [address] [id number] [address] [place] [address], [place] [address] Jan, [facility] [address] [id number] [address] [place] [address], [place] [address] Dec, [facility] [address] [id number] [address] [place] [address], [place] [address] Dec, [facility] [address] [id number] [address] [place] [address], [place] [address] Nov, [facility] [address] [id number] [address] [place] [address], [place] [address] Nov, [facility] [address] [id number] [address] [place] [address], [place] [address] Nov, [facility] [address] [id number] [address] [place] [address], [place] [address] Nov, [facility] [address] [id number] [address] [place] [address], [place] [address] Nov, [facility] [address] [id number] [address] [place] [address], [place] [address] Oct, [facility] [address] [id number] [address] [place] [address], [place] [address] Oct, [facility] [address] [id number] [address] [place] [address], [place] [address] Oct, [facility] [address] [id number] [address] [place] [address], [place] [address] Oct, [facility] [address] [id number] [address] [place] [address], [place] [address] Oct, [facility] [address] [id number] [address] [place] [address], [place] [address] 05 Oct, 2012 [facility] [address] [id number] [address] [place] [address], [place] [address] 05 Oct, 2012 [facility] [address] [id number] [address] [place] [address], [place] [address] Oct, [facility] [address] [id number] [address] [place] [address], [place] [address] Sep, [facility] [address] [id number] [address] [place] [address], [place] [address] Sep, [facility] [address] [id number] [address] [place] [address], [place] [address] Sep, [facility] [address] [id number] [address] [place] [address], [place] [address] Aug, [facility] [address] [id number] [address] [place] [address], [place] [address] Aug, [facility] [address] [id number] [address] [place] [address], [place] [address] Aug, [facility] [address] [id number] [address] [place] [address], [place] [address] Aug, [facility] [address] [id number] [address] [place] [address], [place] [address] Aug, [facility] [address] [id number] [address] [place] [address], [place] [address] Jul, [facility] [address] [id number] [address] [place] [address], [place] [address] 18 Jul, 2012 [facility] [address] [id number] [address] [place] [address], [place] [address] Jun, [facility] [address] [id number] [address] [place] [address], [place] [address] May, [facility] [address] [id number] [address] [place] [address], [place] [address] May, [facility] [address] [id number] [address] [place] [address], [place] [address] Apr, [facility] [address] [id number] [address] [place] [address], [place] [address] March, [facility] [address] [id number] [address] [place] [address], [place] [address] March, [facility] [address] [id number] [address] [place] [address], [place] [address] March, [facility] [address] [id number] [address] [place] [address], [place] [address] March, [facility] [address] [id number] [address] [place] [address], [place] [address] Feb, [facility] [address] [id number] [address] [place] [address], [place] [address] Feb, [facility] [address] [id number] [address] [place] [address], [place] [address] Jan, [facility] [address] [id number] [address] [place] [address], [place] [address] Dec, [facility] [address] [id number] [address] [place] [address], [place] [address] Dec, [facility] [address] [id number] [address] [place] [address], [place] [address] Dec, [facility] [address] [id number] [address] [place] [address], [place] [address] Nov, [facility] [address] [id number] [address] [place] [address], [place] [address] Nov, [facility] [address] [id number] [address] [place] [address], [place] [address] Nov, [facility] [address] [id number] [address] [place] [address], [place] [address] Oct, [facility] [address] [id number] [address] [place] [address], [place] [address] Sep, [facility] [address] [id number] [address] [place] [address] Aug, [facility] [address] [facility] [id number] [address] [place] [address] Aug, [facility] [address] [facility] [id number] [address] [place] [address] May, [facility] [address] [facility] [id number] [address] [place] [address] Sep, [facility] [address] [facility] [id number] [address] [place] [address] Sep, IMMUNIZATIONS No Known Immunizations SOCIAL HISTORY Never Assessed REASON FOR VISIT EMR-[facility] PLAN OF CARE VITAL SIGNS MEDICATIONS Unknown Medications RESULTS No Results PROCEDURES No Known procedures INSTRUCTIONS MEDICATIONS ADMINISTERED No Known Medications MEDICAL (GENERAL) HISTORY Type Description Date Medical History bipolar Medical History adhd Medical History anxiety Surgical History No Surgical history information
--- OUTSIDE RECORDS SUMMARY | 2020-03-18 15:31 | XMS REPORT ---
Author Author Jose Cruz Mercer Doctor Organization [facility] Address Unknown Phone Unavailable Care Team Providers Care Cage/Vault Supervisor Name Role Phone Migration, Doctor Unavailable Unavailable PROBLEMS Type Condition ICD9-CM Code [id number] Code Onset Dates Condition S tatus SNOMED Code Problem 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 Ac tive 82437403 Problem Encounter for long-term (current) use of other medications V58.69 Active 560269988 Problem Bipolar disorder, unspecified 296.80 Active 83056959 Problem Bipolar I disorder, most recent episode (or current) mixed, moderate 296.62 Active 822192193 Problem Bipolar disorder F31.9 Active 137 49011 Problem Intellectual disability F79 Active 70462330 Problem Generalized anxiety disorder 300.02 A ctive 45659714 Problem Attention-deficit hyperactiv ity disorder, predominantly inattentive type F90.0 Active 23598116 Problem 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 314.00 Active 50500134 Problem Intermittent explosive disorder F63.81 Active 51584973 Problem Attention deficit hyperactivity disorder F90.9 Active 180254601 Problem Bipolar disorder, currently in remission, most recent episode unspecified F31.70 Active 71481684 Problem Moderate intellectual disability F71 Active 79031325 ALLERGIES No Information ENCOUNTERS Encounter Location Date Diagnosis [place] [id number] [facility] [id number] [address] [place] [id number] Feb, Bipolar disorder F31.9 ; Att ention-deficit hyperactivity disorder, predominantly inattentive type F90.0 and Moderate intellectual disability F71 [facility] [address] [facility] [id number] [address] [place] [id number] Jan, Bipolar disorder F31.9 [facility] [address] [facility] [id number] [address] [place] [phone] Jan, Bipolar disorder F31.9 [facility] [address] [facility] [id number] [address] [place] [phone] Jan, Dental examination Z01.20 ; 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 status requiring routine preventive dental care K08.9 and Caries K02.9 [facility] [address] [id number] [address] [place] [id number] Jan, [facility] [address] [id number] [address] [place] [phone] Jan, Bipolar disorder F31.9 ; Mod erate intellectual disability F71 and Attention-deficit hyperactivity disorder, predominantly inattentive type F90.0 [facility] [address] [id number] [address] [place] [phone] Dec, Bipolar disorder, currently in remission, most recent episode unspecified F31.70 [facility] [address] [id number] [address] [place] [phone] Dec, Bipolar disorder, currently in remission, most recent episode unspecified F31.70 [facility] [address] [id number] [address] [place] [id number] Dec, Bipolar disorder, currently in remission, most recent episode unspecified F31.70 [facility] [address] [id number] [address] [place] [id number] Dec, [facility] [address] [id number] [address] [place] [phone] Dec, Bipolar disorder, currently in remission, most recent episode unspecified F31.70 [facility] [address] [id number] [address] [place] [id number] Nov, Bipolar disorder, currently in remission, most recent episode unspecified F31.70 [facility] [address] [id number] [address] [place] [phone] Nov, [facility] [address] [id number] [address] [place] [id number] Nov, [facility] [address] [id number] [address] [place] [id number] Nov, Bipolar disorder, currently in remission, most recent episode unspecified F31.70 [facility] [address] [id number] [address] [place] [phone] Nov, Bipolar disorder, currently in remission, most recent episode unspecified F31.70 [facility] [address] [id number] [address] [place] [phone] Oct, High risk medication use Z79 .899 ; Bipolar disorder F31.9 ; Moderate intellectual disability F71 and Attention-deficit hyperactivity disorder, predominantly inattentive type F90.0 [facility] [address] [id number] [address] [place] [id number] Oct, [facility] [address] [id number] [address] [place] [id number] Sep, Bipolar disorder, currently in remission, most recent episode unspecified F31.70 [facility] [address] [id number] [address] [place] [id number] Sep, 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 stat us requiring routine preventive dental care K08.9 and Arrested dental caries K02.3 [facility] [address] [id number] [address] [place] [phone] Sep, Bipolar disorder, currently in remission, most recent episode unspecified F31.70 ; Moderate intellectual disability F71 and Attention-deficit hyperactivity disorder, predominantly inattentive type F90.0 [facility] [address] [id number] [address] [place] [phone] Sep, Bipolar disorder, currently in remission, most recent episode unspecified F31.70 [facility] [address] [id number] [address] [place] [phone] Aug, Bipolar disorder, currently in remission, most recent episode unspecified F31.70 [facility] [address] [id number] [address] [place] [phone] Jul, Bipolar disorder, currently in remission, most recent episode unspecified F31.70 [facility] [address] [id number] [address] [place] [phone] Jul, Bipolar disorder, currently in remission, most recent episode unspecified F31.70 [facility] [address] [id number] [address] [place] [phone] Jun, [facility] [address] [id number] [address] [place] [phone] Jun, Bipolar disorder, currently in remission, most recent episode unspecified F31.70 [facility] [address] [id number] [address] [place] [address] [id number] 08 Jun, 2018 Dental examination Z01.20 an d Dental caries K02.9 [facility] [address] [id number] [address] [place] [phone] May, Bipolar disorder, currently in remission, most recent episode unspecified F31.70 [facility] [address] [id number] [address] [place] [phone] May, Bipolar disorder, currently in remission, most recent episode unspecified F31.70 [facility] [address] [id number] [address] [place] [phone] May, Bipolar disorder, currently in remission, most recent episode unspecified F31.70 ; Moderate intellectual disability F71 and Attention-deficit hyperactivity disorder, predominantly inattentive type F90.0 [facility] [address] [id number] [address] [place] [phone] Apr, Bipolar disorder, unspecifie d F31.9 [facility] [address] [id number] [address] [place] [phone] Apr, [facility] [address] [id number] [address] [place] [phone] Apr, [facility] [address] [id number] [address] [place] [phone] Apr, [facility] [address] [id number] [address] [place] [id number] March, [facility] [address] [id number] [address] [place] [phone] March, Bipolar disorder, currently in remission, most recent episode unspecified F31.70 ; Moderate intellectual disability F71 and Attention-deficit hyperactivity disorder, predominantly inattentive type F90.0 [facility] [address] [id number] [address] [place] [phone] Feb, [facility] [address] [id number] [address] [place] [address] [id number] Feb, Dental examination Z01.20 [facility] [address] [id number] [address] [place] [phone] Jan, [facility] [address] [id number] [address] [place] [phone] Jan, [facility] [address] [id number] [address] [place] [phone] Dec, [facility] [address] [id number] [address] [place] [phone] Nov, [facility] [address] [id number] [address] [place] [address] [id number] Nov, Encounter for dental exam an d cleaning w/o abnormal findings Z01.20 [facility] [address] [id number] [address] [place] [address] [id number] Nov, Dental examination Z01.20 [facility] [address] [id number] [address] [place] [phone] Oct, [facility] [address] [id number] [address] [place] [id number] Oct, Bipolar disorder, currently in remission, most recent episode unspecified F31.70 ; Moderate intellectual disability F71 and Attention-deficit hyperactivity disorder, predominantly inattentive type F90.0 [facility] [address] [id number] [address] [place] [phone] Sep, [facility] [address] [id number] [address] [place] [phone] Sep, [facility] [address] [facility] [id number] [address] [place] [id number] Aug, [facility] [address] [facility] [id number] [address] [place] [phone] Aug, Attention-deficit hyperactiv ity disorder, predominantly inattentive type F90.0 ; Moderate intellectual disability 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 and Bipolar disorder F31.9 [facility] [address] [id number] [address] [place] [address] [id number] 11 Jul, 2017 Dental examination Z01.20 an d Dental caries K02.9 [facility] [address] [id number] [address] [place] [phone] Jul, [facility] [address] [facility] [id number] [address] [place] [phone] Jun, Bipolar disorder F31.9 ; Att ention-deficit hyperactivity disorder, predominantly inattentive type F90.0 and Moderate intellectual disability F71 [facility] [address] [facility] [id number] [address] [place] [phone] Jun, [facility] [address] [facility] [id number] [address] [place] [phone] May, [facility] [address] [facility] [id number] [address] [place] [phone] Apr, [facility] [address] [facility] [id number] [address] [place] [phone] March, Intermittent explosive disor jocelyn F63.81 ; Attention deficit hyperactivity disorder F90.9 and Bipolar disorder F31.9 [facility] [address] [id number] [address] [place] [phone] Feb, [facility] [address] [facility] [id number] [address] [place] [phone] Jan, [facility] [address] [facility] [id number] [address] [place] [phone] 13 Dec, 2016 Encounter for immunization Z 23 [facility] [address] [facility] [id number] [address] [place] [phone] Dec, Intermittent explosive disor jocelyn F63.81 ; Attention deficit hyperactivity disorder F90.9 and Bipolar disorder, currently in remission, most recent episode unspecified F31.70 [facility] [address] [id number] [address] [place] [phone] Nov, [facility] [address] [facility] [id number] [address] [place] [phone] Oct, [facility] [address] [facility] [id number] [address] [place] [phone] Oct, [facility] [address] [id number] [address] [place] [address] [id number] Oct, Dental examination Z01.20 [facility] [address] [facility] [id number] [address] [place] [phone] Sep, [facility] [address] [facility] [id number] [address] [place] [phone] Sep, [facility] [address] [facility] [id number] [address] [place] [phone] Sep, Intermittent explosive disor jocelyn F63.81 ; Bipolar disorder F31.9 and Attention deficit hyperactivity disorder F90.9 [facility] [address] [facility] [id number] [address] [place] [phone] Aug, [facility] [address] [facility] [id number] [address] [place] [phone] Aug, [facility] [address] [facility] [id number] [address] [place] [phone] Aug, [facility] [address] [facility] [id number] [address] [place] [phone] Aug, Attention deficit hyperactiv ity disorder F90.9 [facility] [address] [id number] [address] [place] [phone] Jul, [facility] [address] [facility] [id number] [address] [place] [phone] Jun, [facility] [address] [id number] [address] [place] [phone] May, [facility] [address] [id number] [address] [place] [phone] Apr, [facility] [address] [id number] [address] [place] [phone] Apr, Bipolar disorder F31.9 ; Att ention deficit hyperactivity disorder F90.9 and Intermittent explosive disorder F63.81 [facility] [address] [id number] [address] [place] [phone] March, [facility] [address] [id number] [address] [place] [phone] Feb, [facility] [address] [id number] [address] [place] [phone] Feb, [facility] [address] [id number] [address] [place] [phone] Jan, [facility] [address] [id number] [address] [place] [phone] Jan, [facility] [address] [id number] [address] [place] [phone] Dec, [facility] [address] [id number] [address] [place] [phone] Nov, [facility] [address] [id number] [address] [place] [phone] Nov, [facility] [address] [id number] [address] [place] [id number] Nov, Attention deficit hyperactiv ity disorder F90.9 ; Intermittent explosive disorder F63.81 and Bipolar disorder F31.9 [facility] [address] [id number] [address] [place] [phone] Oct, [facility] [address] [id number] [address] [place] [phone] Oct, [facility] [address] [facility] [id number] [address] [place] [phone] Sep, [facility] [address] [facility] [id number] [address] [place] [phone] Aug, [facility] [address] [facility] [id number] [address] [place] [phone] Jul, [facility] [address] [facility] [id number] [address] [place] [phone] Jul, [facility] [address] [facility] [id number] [address] [place] [phone] Jul, Anxiety, generalized 300.02 ; Bipolar disorder, unspecified 296.80 ; 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.00 ; 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 and Impulse control disorder, unspecified 312.30 [facility] [address] [facility] [id number] [address] [place] [id number] Jul, [facility] [address] [facility] [id number] [address] [place] [phone] Jun, [facility] [address] [facility] [id number] [address] [place] [phone] May, [facility] [address] [facility] [id number] [address] [place] [phone] Apr, [facility] [address] [facility] [id number] [address] [place] [phone] Apr, Bipolar disorder, unspecifie d 296.80 ; Generalized anxiety disorder 300.02 and 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.00 [facility] [address] [facility] [id number] [address] [place] [phone] Apr, [facility] [address] [facility] [id number] [address] [place] [phone] March, [facility] [address] [facility] [id number] [address] [place] [phone] March, [facility] [address] [id number] [address] [place] [address], [place] [id number] March, [facility] [address] [id number] [address] [place] [address], [place] [id number] March, [facility] [address] [id number] [address] [place] [address], [place] [id number] Feb, [facility] [address] [id number] [address] [place] [address], [place] [id number] Feb, [facility] [address] [id number] [address] [place] [address], [place] [id number] Jan, [facility] [address] [id number] [address] [place] [address], [place] [id number] Jan, [facility] [address] [id number] [address] [place] [address], [place] [id number] Jan, [facility] [address] [id number] [address] [place] [address], [place] [id number] Jan, [facility] [address] [id number] [address] [place] [address], [place] [id number] Jan, [facility] [address] [id number] [address] [place] [address], [place] [id number] Dec, [facility] [address] [id number] [address] [place] [address], [place] [id number] Dec, [facility] [address] [id number] [address] [place] [address], [place] [id number] Nov, [facility] [address] [id number] [address] [place] [address], [place] [id number] Nov, [facility] [address] [id number] [address] [place] [address], [place] [id number] Nov, [facility] [address] [id number] [address] [place] [address], [place] [id number] Oct, [facility] [address] [id number] [address] [place] [address], [place] [id number] Oct, [facility] [address] [id number] [address] [place] [address], [place] [id number] Oct, [facility] [address] [id number] [address] [place] [address], [place] [id number] Oct, [facility] [address] [id number] [address] [place] [address], [place] [id number] Oct, [facility] [address] [id number] [address] [place] [address], [place] [id number] Oct, [facility] [address] [id number] [address] [place] [address], [place] [id number] Sep, [facility] [address] [id number] [address] [place] [address], [place] [id number] Sep, [facility] [address] [id number] [address] [place] [address], [place] [id number] Sep, [facility] [address] [id number] [address] [place] [address], [place] [id number] Aug, [facility] [address] [id number] [address] [place] [address], [place] [id number] Aug, [facility] [address] [id number] [address] [place] [address], [place] [id number] Jul, [facility] [address] [id number] [address] [place] [address], [place] [id number] Jul, [facility] [address] [id number] [address] [place] [address], [place] [id number] Jun, [facility] [address] [id number] [address] [place] [address], [place] [id number] Jun, [facility] [address] [id number] [address] [place] [address], [place] [id number] Jun, [facility] [address] [id number] [address] [place] [address], [place] [id number] Jun, [facility] [address] [id number] [facility] [place] [address] 17 May, 2014 [facility] [address] [id number] [facility] [place] [id number] May, [facility] [address] [id number] [facility] [place] [id number] May, [facility] [address] [id number] [facility] [place] [id number] Apr, [facility] [address] [id number] [facility] [place] [id number] Apr, [facility] [address] [id number] [address] [place] [address], [place] [id number] Apr, [facility] [address] [id number] [address] [place] [address], [place] [id number] Apr, [facility] [address] [id number] [address] [place] [address], [place] [id number] March, [facility] [address] [id number] [address] [place] [address], [place] [id number] March, [facility] [address] [id number] [address] [place] [address], [place] [id number] March, [facility] [address] [id number] [address] [place] [address], [place] [id number] March, [facility] [address] [id number] [address] [place] [address], [place] [id number] Feb, [facility] [address] [id number] [address] [place] [address], [place] [id number] Feb, [facility] [address] [id number] [address] [place] [address], [place] [id number] Jan, [facility] [address] [id number] [address] [place] [address], [place] [id number] Jan, [facility] [address] [id number] [address] [place] [address], [place] [phone] Jan, [facility] [address] [id number] [facility] [place] [id number] Jan, [facility] [address] [id number] [address] [place] [address], [place] [id number] Jan, [facility] [address] [id number] [address] [place] [address], [place] [id number] Jan, [facility] [address] [id number] [address] [place] [address], [place] [id number] Jan, [facility] [address] [id number] [address] [place] [address], [place] [id number] Jan, [facility] [address] [id number] [address] [place] [address], [place] [id number] Dec, [facility] [address] [id number] [address] [place] [address], [place] [id number] Dec, [facility] [address] [id number] [address] [place] [address], [place] [id number] Dec, [facility] [address] [id number] [address] [place] [address], [place] [id number] Dec, [facility] [address] [id number] [address] [place] [address], [place] [id number] Nov, [facility] [address] [id number] [address] [place] [address], [place] [id number] Nov, [facility] [address] [id number] [address] [place] [address], [place] [id number] Oct, [facility] [address] [id number] [address] [place] [address], [place] [id number] Oct, [facility] [address] [id number] [address] [place] [address], [place] [id number] Oct, [facility] [address] [id number] [address] [place] [address], [place] [id number] Oct, [facility] [address] [id number] [address] [place] [address], [place] [id number] Sep, [facility] [address] [id number] [address] [place] [address], [place] [id number] Sep, [facility] [address] [id number] [address] [place] [address], [place] [id number] Sep, [facility] [address] [id number] [address] [place] [address], [place] [id number] Sep, [facility] [address] [id number] [address] [place] [address], [place] [id number] Aug, [facility] [address] [id number] [address] [place] [address], [place] [id number] Aug, [facility] [address] [id number] [address] [place] [address], [place] [id number] Aug, [facility] [address] [id number] [address] [place] [address], [place] [id number] Jul, [facility] [address] [id number] [address] [place] [address], [place] [id number] Jul, [facility] [address] [id number] [address] [place] [address], [place] [id number] Jun, [facility] [address] [id number] [address] [place] [address], [place] [id number] Jun, [facility] [address] [id number] [address] [place] [address], [place] [id number] May, [facility] [address] [id number] [address] [place] [address], [place] [id number] May, [facility] [address] [id number] [address] [place] [address], [place] [id number] Apr, [facility] [address] [id number] [address] [place] [address], [place] [id number] March, [facility] [address] [id number] [address] [place] [address], [place] [id number] March, [facility] [address] [id number] [address] [place] [address], [place] [id number] Feb, [facility] [address] [id number] [address] [place] [address], [place] [id number] Jan, [facility] [address] [id number] [address] [place] [address], [place] [id number] Jan, [facility] [address] [id number] [address] [place] [address], [place] [id number] Dec, [facility] [address] [id number] [address] [place] [address], [place] [id number] Dec, [facility] [address] [id number] [address] [place] [address], [place] [id number] Nov, [facility] [address] [id number] [address] [place] [address], [place] [id number] Nov, [facility] [address] [id number] [address] [place] [address], [place] [id number] Nov, [facility] [address] [id number] [address] [place] [address], [place] [id number] Nov, [facility] [address] [id number] [address] [place] [address], [place] [id number] Nov, [facility] [address] [id number] [address] [place] [address], [place] [id number] Oct, [facility] [address] [id number] [address] [place] [address], [place] [id number] Oct, [facility] [address] [id number] [address] [place] [address], [place] [id number] Oct, [facility] [address] [id number] [address] [place] [address], [place] [id number] Oct, [facility] [address] [id number] [address] [place] [address], [place] [id number] Oct, [facility] [address] [id number] [address] [place] [id number] 05 Oct, 2012 [facility] [address] [id number] [address] [place] [address], [place] [id number] Oct, [facility] [address] [id number] [address] [place] [address], [place] [id number] Oct, [facility] [address] [id number] [address] [place] [address], [place] [id number] Sep, [facility] [address] [id number] [address] [place] [address], [place] [id number] Sep, [facility] [address] [id number] [address] [place] [address], [place] [id number] Sep, [facility] [address] [id number] [address] [place] [address], [place] [id number] Aug, [facility] [address] [id number] [address] [place] [address], [place] [id number] Aug, [facility] [address] [id number] [address] [place] [address], [place] [id number] Aug, [facility] [address] [id number] [address] [place] [address], [place] [id number] Aug, [facility] [address] [id number] [address] [place] [address], [place] [id number] Aug, [facility] [address] [id number] [address] [place] [address], [place] [id number] Jul, [facility] [address] [id number] [address] [place] [address], [place] [id number] Jul, [facility] [address] [id number] [address] [place] [address], [place] [id number] Jun, [facility] [address] [id number] [address] [place] [address], [place] [id number] May, [facility] [address] [id number] [address] [place] [address], [place] [id number] May, [facility] [address] [id number] [address] [place] [address], [place] [id number] Apr, [facility] [address] [id number] [address] [place] [address], [place] [id number] March, [facility] [address] [id number] [address] [place] [address], [place] [id number] March, [facility] [address] [id number] [address] [place] [address], [place] [id number] March, [facility] [address] [id number] [address] [place] [address], [place] [id number] March, [facility] [address] [id number] [address] [place] [address], [place] [id number] Feb, [facility] [address] [id number] [address] [place] [address], [place] [id number] Feb, [facility] [address] [id number] [address] [place] [address], [place] [id number] Jan, [facility] [address] [id number] [address] [place] [address], [place] [id number] Dec, [facility] [address] [id number] [address] [place] [address], [place] [id number] Dec, [facility] [address] [id number] [address] [place] [address], [place] [id number] Dec, [facility] [address] [id number] [address] [place] [address], [place] [id number] Nov, [facility] [address] [id number] [address] [place] [address], [place] [id number] Nov, [facility] [address] [id number] [address] [place] [address], [place] [id number] Nov, [facility] [address] [id number] [address] [place] [address], [place] [id number] Oct, [facility] [address] [id number] [address] [address] Sep, [facility] [address] [facility] [id number] [address] [place] [id number] Aug, [facility] [address] [facility] [id number] [address] [place] [id number] Aug, [facility] [address] [facility] [id number] [address] [place] [id number] May, [facility] [address] [facility] [id number] [address] [place] [id number] Sep, [facility] [address] [facility] [id number] [address] [place] [id number] Sep, IMMUNIZATIONS No Known Immunizations SOCIAL HISTORY Never Assessed REASON FOR VISIT [facility] PLAN OF CARE VITAL SIGNS MEDICATIONS No Known Medications RESULTS No Results PROCEDURES No Known procedures INSTRUCTIONS MEDICATIONS ADMINISTERED No Known Medications MEDICAL (GENERAL) HISTORY Type Description Date Medical History bipolar Medical History adhd Medical History anxiety Surgical History No Surgical history information
--- OUTSIDE RECORDS SUMMARY | 2020-03-18 15:32 | XMS REPORT ---
Author Author Jose Cruz FELDMAN CARLOS [facility] Address [address] [place] [address] Care Team Providers Care Rn Unit Manager Name Role Phone LIZETANGIE ANAYAYLA Unavailable PROBLEMS Type Condition ICD9-CM Code OUR66-WY Code Onset Dates Condition S tatus SNOMED Code Problem Bipolar disorder, unspecified 296.80 Active 11325235 Problem Bipolar disorder F31.9 Active 137 68179 Problem Bipolar I disorder, most recent episode (or current) mixed, moderate 296.62 Active 128444425 Problem Encounter for long-term (current) use of other medications V58.69 Active 370536465 Problem 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 Ac tive 83705439 Problem 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 314.00 Active 52187342 Problem Generalized anxiety disorder 300.02 A ctive 62308344 Problem Attention-deficit hyperactiv ity disorder, predominantly inattentive type F90.0 Active 33892102 Problem Intellectual disability F79 Active 67906807 Problem Attention deficit hyperactivity disorder F90.9 Active 310530661 Problem Intermittent explosive disorder F63.81 Active 44229481 Problem Moderate intellectual disability F71 Active 01783005 Problem Bipolar disorder, currently in remission, most recent episode unspecified F31.70 Active [id number] ALLERGIES No Information ENCOUNTERS Encounter Location Date Diagnosis [facility] [address] [facility] [id number] [address] [place] [address] Jul, Bipolar disorder, currently in remission, most recent episode unspecified F31.70 [facility] [address] [facility] [id number] [address] [place] [address] Jul, Bipolar disorder, currently in remission, most recent episode unspecified F31.70 [facility] [address] [facility] [id number] [address] [place] [address] Jun, [facility] [address] [facility] [id number] [address] [place] [address] Jun, Bipolar disorder, currently in remission, most recent episode unspecified F31.70 [facility] [address] [id number] [address] [place] [id number] Jun, Dental examination Z01.20 an d Dental caries K02.9 [facility] [address] [id number] [address] [place] [address] May, Bipolar disorder, currently in remission, most recent episode unspecified F31.70 [facility] [address] [id number] [address] [place] [address] May, Bipolar disorder, currently in remission, most recent episode unspecified F31.70 [facility] [address] [id number] [address] [place] [address] May, Bipolar disorder, currently in remission, most recent episode unspecified F31.70 ; Moderate intellectual disability F71 and Attention-deficit hyperactivity disorder, predominantly inattentive type F90.0 [facility] [address] [id number] [address] [place] [address] Apr, Bipolar disorder, unspecifie d F31.9 [facility] [address] [id number] [address] [place] [address] Apr, [facility] [address] [id number] [address] [place] [address] Apr, [facility] [address] [id number] [address] [place] [address] Apr, [facility] [address] [id number] [address] [place] [phone] March, [facility] [address] [id number] [address] [place] [address] March, Bipolar disorder, currently in remission, most recent episode unspecified F31.70 ; Moderate intellectual disability F71 and Attention-deficit hyperactivity disorder, predominantly inattentive type F90.0 [facility] [address] [id number] [address] [place] [phone] Feb, [facility] [address] [id number] [address] [place] [address] [id number] Feb, Dental examination Z01.20 [facility] [address] [id number] [address] [place] [phone] Jan, [facility] [address] [id number] [address] [place] [phone] Jan, [facility] [address] [id number] [address] [place] [address] Dec, [facility] [address] [id number] [address] [place] [address] Nov, [facility] [address] [id number] [address] [place] [id number] Nov, Dental examination Z01.20 [facility] [address] [id number] [address] [place] [id number] Nov, Encounter for dental exam an d cleaning w/o abnormal findings Z01.20 [facility] [address] [id number] [address] [place] [address] Oct, [facility] [address] [id number] [address] [place] [address] Oct, Bipolar disorder, currently in remission, most recent episode unspecified F31.70 ; Moderate intellectual disability F71 and Attention-deficit hyperactivity disorder, predominantly inattentive type F90.0 [facility] [address] [id number] [address] [place] [phone] Sep, [facility] [address] [id number] [address] [place] [phone] Sep, [facility] [address] [id number] [address] [place] [address] Aug, [facility] [address] [id number] [address] [place] [address] Aug, Attention-deficit hyperactiv ity disorder, predominantly inattentive type F90.0 ; Moderate intellectual disability F71 and Bipolar disorder F31.9 [facility] [address] [id number] [address] [place] [address] [id number] Jul, 2017 Dental examination Z01.20 an d Dental caries K02.9 [facility] [address] [id number] [address] [place] [phone] 05 Jul, 2017 [facility] [address] [id number] [address] [place] [phone] Jun, Bipolar disorder F31.9 ; Att ention-deficit hyperactivity disorder, predominantly inattentive type F90.0 and Moderate intellectual disability F71 [facility] [address] [facility] [id number] [address] [place] [phone] Jun, [facility] [address] [facility] [id number] [address] [place] [phone] May, [facility] [address] [facility] [id number] [address] [place] [phone] Apr, [facility] [address] [facility] [id number] [address] [place] [address] March, Intermittent explosive disor jocelyn F63.81 ; Attention deficit hyperactivity disorder F90.9 and Bipolar disorder F31.9 [facility] [address] [facility] [id number] [address] [place] [phone] Feb, [facility] [address] [facility] [id number] [address] [place] [phone] Jan, [facility] [address] [facility] [id number] [address] [place] [phone] 13 Dec, 2016 Intermittent explosive disor jocelyn F63.81 ; Attention deficit hyperactivity disorder F90.9 and Bipolar disorder, currently in remission, most recent episode unspecified F31.70 [facility] [address] [facility] [id number] [address] [place] [phone] 13 Dec, 2016 Encounter for immunization Z 23 [facility] [address] [facility] [id number] [address] [place] [phone] Nov, [facility] [address] [id number] [address] [place] [phone] Oct, [facility] [address] [id number] [address] [place] [address] Oct, [facility] [address] [id number] [address] [place] [address] [id number] Oct, Dental examination Z01.20 [facility] [address] [id number] [address] [place] [phone] Sep, [facility] [address] [id number] [address] [place] [address] Sep, [facility] [address] [facility] [id number] [address] [place] [phone] Sep, Intermittent explosive disor jocelyn F63.81 ; Bipolar disorder F31.9 and Attention deficit hyperactivity disorder F90.9 [facility] [address] [id number] [address] [place] [phone] Aug, [facility] [address] [id number] [address] [place] [phone] Aug, [facility] [address] [facility] [id number] [address] [place] [phone] Aug, [facility] [address] [id number] [address] [place] [address] Aug, Attention deficit hyperactiv ity disorder F90.9 [facility] [address] [id number] [address] [place] [phone] Jul, [facility] [address] [id number] [address] [place] [address] Jun, [facility] [address] [id number] [address] [place] [phone] May, [facility] [address] [facility] [id number] [address] [place] [address] Apr, [facility] [address] [id number] [address] [place] [address] Apr, Bipolar disorder F31.9 ; Att ention deficit hyperactivity disorder F90.9 and Intermittent explosive disorder F63.81 [facility] [address] [id number] [address] [place] [phone] March, [facility] [address] [id number] [address] [place] [phone] Feb, [facility] [address] [id number] [address] [place] [phone] Feb, [facility] [address] [id number] [address] [place] [phone] Jan, [facility] [address] [id number] [address] [place] [phone] Jan, [facility] [address] [id number] [address] [place] [phone] Dec, [facility] [address] [id number] [address] [place] [phone] Nov, [facility] [address] [id number] [address] [place] [phone] Nov, [facility] [address] [id number] [address] [place] [address] Nov, Attention deficit hyperactiv ity disorder F90.9 ; Intermittent explosive disorder F63.81 and Bipolar disorder F31.9 [facility] [address] [id number] [address] [place] [phone] Oct, [facility] [address] [id number] [address] [place] [address] Oct, [facility] [address] [id number] [address] [place] [phone] Sep, [facility] [address] [id number] [address] [place] [phone] Aug, [facility] [address] [id number] [address] [place] [phone] Jul, [facility] [address] [id number] [address] [place] [address] Jul, [facility] [address] [id number] [address] [place] [address] Jul, Anxiety, generalized 300.02 ; Bipolar disorder, unspecified 296.80 ; 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.00 ; 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 and Impulse control disorder, unspecified 312.30 [facility] [address] [id number] [address] [place] [phone] Jul, [facility] [address] [id number] [address] [place] [address] Jun, [facility] [address] [facility] [id number] [address] [place] [phone] May, [facility] [address] [id number] [address] [place] [address] Apr, [facility] [address] [facility] [id number] [address] [place] [phone] Apr, Bipolar disorder, unspecifie d 296.80 ; Generalized anxiety disorder 300.02 and 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.00 [facility] [address] [facility] [id number] [address] [place] [address] Apr, [facility] [address] [id number] [address] [place] [address] March, [facility] [address] [id number] [address] [place] [phone] March, [facility] [address] [facility] [id number] [address] [place] [phone] March, [facility] [address] [facility] [id number] [address] [place] [address] March, [facility] [address] [id number] [address] [place] [address], [place] [phone] 14 Feb, 2015 [facility] [address] [id number] [address] [place] [address], [place] [address] Feb, [facility] [address] [id number] [address] [place] [address], [place] [address] Jan, [facility] [address] [id number] [address] [place] [address], [place] [address] Jan, [facility] [address] [id number] [address] [place] [address], [place] [address] Jan, [facility] [address] [id number] [address] [place] [address], [place] [address] Jan, [facility] [address] [id number] [address] [place] [address], [place] [address] Jan, [facility] [address] [id number] [address] [place] [address], [place] [address] Dec, [facility] [address] [id number] [address] [place] [address], [place] [address] Dec, [facility] [address] [id number] [address] [place] [address], [place] [address] Nov, [facility] [address] [id number] [address] [place] [address], [place] [address] Nov, [facility] [address] [id number] [address] [place] [address], [place] [address] Nov, [facility] [address] [id number] [address] [place] [address], [place] [address] Oct, [facility] [address] [id number] [address] [place] [address], [place] [address] Oct, [facility] [address] [id number] [address] [place] [address], [place] [address] Oct, [facility] [address] [id number] [address] [place] [address], [place] [address] Oct, [facility] [address] [id number] [address] [place] [address], [place] [address] Oct, [facility] [address] [id number] [address] [place] [address], [place] [address] Oct, [facility] [address] [id number] [address] [place] [address], [place] [address] Sep, [facility] [address] [id number] [address] [place] [address], [place] [address] Sep, [facility] [address] [id number] [address] [place] [address], [place] [address] Sep, [facility] [address] [id number] [address] [place] [address], [place] [address] Aug, [facility] [address] [id number] [address] [place] [address], [place] [address] Aug, [facility] [address] [id number] [address] [place] [address], [place] [address] Jul, [facility] [address] [id number] [address] [place] [address], [place] [address] Jul, [facility] [address] [id number] [address] [place] [address], [place] [address] Jun, [facility] [address] [id number] [address] [place] [address], [place] [address] Jun, [facility] [address] [id number] [address] [place] [address], [place] [address] Jun, [facility] [address] [id number] [address] [place] [address], [place] [address] Jun, [facility] [address] [id number] [address] [place] [address], [place] [address] May, [facility] [address] [id number] [address] [place] [address], [place] [address] May, [facility] [address] [id number] [facility] [place] [address] 16 May, 2014 [facility] [address] [id number] [facility] [place] [address] Apr, [facility] [address] [id number] [facility] [place] [address] Apr, [facility] [address] [id number] [address] [place] [address], [place] [address] Apr, [facility] [address] [id number] [facility] [place] [address] Apr, [facility] [address] [id number] [address] [place] [address], [place] [address] March, [facility] [address] [id number] [address] [place] [address], [place] [address] March, [facility] [address] [id number] [address] [place] [address], [place] [address] March, [facility] [address] [id number] [address] [place] [address], [place] [address] March, [facility] [address] [id number] [address] [place] [address], [place] [address] Feb, [facility] [address] [id number] [address] [place] [address], [place] [address] Feb, [facility] [address] [id number] [address] [place] [address], [place] [address] Jan, [facility] [address] [id number] [address] [place] [address], [place] [address] Jan, [facility] [address] [id number] [address] [place] [address], [place] [address] Jan, [facility] [address] [id number] [address] [place] [address], [place] [address] Jan, [facility] [address] [id number] [address] [place] [address], [place] [address] Jan, [facility] [address] [id number] [facility] [place] [address] Jan, [facility] [address] [id number] [address] [place] [address], [place] [address] Jan, [facility] [address] [id number] [facility] [place] [address] Jan, [facility] [address] [id number] [address] [place] [address], [place] [address] Dec, [facility] [address] [id number] [address] [place] [address], [place] [address] Dec, [facility] [address] [id number] [address] [place] [address], [place] [address] Dec, [facility] [address] [id number] [address] [place] [address], [place] [address] Dec, [facility] [address] [id number] [address] [place] [address], [place] [address] Nov, [facility] [address] [id number] [address] [place] [address], [place] [address] Nov, [facility] [address] [id number] [address] [place] [address], [place] [address] Oct, [facility] [address] [id number] [address] [place] [address], [place] [address] Oct, [facility] [address] [id number] [address] [place] [address], [place] [address] Oct, [facility] [address] [id number] [address] [place] [address], [place] [address] Oct, [facility] [address] [id number] [address] [place] [address], [place] [address] Sep, [facility] [address] [id number] [address] [place] [address], [place] [address] Sep, [facility] [address] [id number] [address] [address] 07 Sep, 2013 [facility] [address] [id number] [address] [place] [address], [place] [address] 07 Sep, 2013 [facility] [address] [id number] [address] [place] [address], [place] [address] Aug, [facility] [address] [id number] [address] [place] [address], [place] [address] Aug, [facility] [address] [id number] [address] [place] [address], [place] [address] Aug, [facility] [address] [id number] [address] [place] [address], [place] [address] Jul, [facility] [address] [id number] [address] [place] [address], [place] [address] Jul, [facility] [address] [id number] [address] [place] [address], [place] [id number] Jun, [facility] [address] [id number] [address] [place] [address], [place] [address] Jun, [facility] [address] [id number] [address] [place] [address], [place] [id number] May, [facility] [address] [id number] [address] [place] [address], [place] [address] May, [facility] [address] [id number] [address] [place] [address], [place] [address] Apr, [facility] [address] [id number] [address] [place] [address], [place] [address] March, [facility] [address] [id number] [address] [place] [address], [place] [address] March, [facility] [address] [id number] [address] [place] [address], [place] [id number] Feb, [facility] [address] [id number] [address] [place] [address], [place] [id number] Jan, [facility] [address] [id number] [address] [place] [address], [place] [id number] Jan, [facility] [address] [id number] [address] [place] [address], [place] [address] Dec, [facility] [address] [id number] [address] [place] [address], [place] [address] Dec, [facility] [address] [id number] [address] [place] [address], [place] [id number] Nov, [facility] [address] [id number] [address] [place] [address], [place] [address] Nov, [facility] [address] [id number] [address] [place] [address], [place] [id number] Nov, [facility] [address] [id number] [address] [place] [address], [place] [id number] Nov, [facility] [address] [id number] [address] [place] [address], [place] [id number] Nov, [facility] [address] [id number] [address] [place] [address], [place] [address] Oct, [facility] [address] [id number] [address] [place] [address], [place] [id number] Oct, [facility] [address] [id number] [address] [place] [address], [place] [address] Oct, [facility] [address] [id number] [address] [place] [address], [place] [phone] Oct, [facility] [address] [id number] [address] [place] [address], [place] [id number] Oct, [facility] [address] [id number] [address] [place] [address], [place] [address] Oct, [facility] [address] [id number] [address] [place] [address], [place] [address] Oct, [facility] [address] [id number] [address] [place] [address], [place] [address] Oct, [facility] [address] [id number] [address] [place] [address], [place] [address] Sep, [facility] [address] [id number] [address] [place] [address], [place] [address] Sep, [facility] [address] [id number] [address] [place] [address], [place] [address] Sep, [facility] [address] [id number] [address] [place] [address], [place] [address] Aug, [facility] [address] [id number] [address] [place] [address], [place] [address] Aug, [facility] [address] [id number] [address] [place] [address], [place] [address] Aug, [facility] [address] [id number] [address] [place] [address], [place] [address] Aug, [facility] [address] [id number] [address] [place] [address], [place] [address] Aug, [facility] [address] [id number] [address] [place] [address], [place] [address] Jul, [facility] [address] [id number] [address] [place] [address], [place] [address] Jul, [facility] [address] [id number] [address] [place] [address], [place] [address] Jun, [facility] [address] [id number] [address] [place] [address], [place] [address] May, [facility] [address] [id number] [address] [place] [address], [place] [address] May, [facility] [address] [id number] [address] [place] [address], [place] [address] Apr, [facility] [address] [id number] [address] [place] [address], [place] [address] March, [facility] [address] [id number] [address] [place] [address], [place] [phone] March, [facility] [address] [id number] [address] [place] [address], [place] [phone] March, [facility] [address] [id number] [address] [place] [address], [place] [address] March, [facility] [address] [id number] [address] [place] [address], [place] [id number] Feb, [facility] [address] [id number] [address] [place] [address], [place] [id number] Feb, [facility] [address] [id number] [address] [place] [address], [place] [address] Jan, [facility] [address] [id number] [address] [place] [address], [place] [address] Dec, [facility] [address] [id number] [address] [place] [address], [place] [phone] Dec, [facility] [address] [id number] [address] [place] [address], [place] [address] Dec, [facility] [address] [id number] [address] [place] [address], [place] [address] Nov, [facility] [address] [id number] [address] [place] [address], [place] [address] Nov, [facility] [address] [id number] [address] [place] [address], [place] [address] Nov, [facility] [address] [id number] [address] [place] [address], [place] [id number] Oct, [facility] [address] [id number] [address] [place] [address], [place] [id number] Sep, [facility] [address] [id number] [address] [place] [address], [place] [address] Aug, [facility] [address] [id number] [address] [place] [address], [place] [address] Aug, [facility] [address] [facility] [id number] [address] [address] May, [facility] [address] [facility] [id number] [address] [place] [id number] Sep, [facility] [address] [facility] [id number] [address] [place] [id number] Sep, IMMUNIZATIONS No Known Immunizations SOCIAL HISTORY Never Assessed REASON FOR VISIT vyvanse 07/13/2018 PLAN OF CARE VITAL SIGNS MEDICATIONS Medication Instructions Dosage Frequency Start Date End Date Duration S rené Vyvanse 70 MG Orally Once a day 1 capsule in the morning 24h Jun, 28 days Active RESULTS No Results PROCEDURES No Known procedures INSTRUCTIONS MEDICATIONS ADMINISTERED No Known Medications MEDICAL (GENERAL) HISTORY Type Description Date Medical History bipolar Medical History adhd Medical History anxiety
--- OUTSIDE RECORDS SUMMARY | 2020-03-18 15:32 | XMS REPORT ---
Author Author Jose Cruz [facility] Address [address] [place] [address] Care Team Providers Care Nurseryperson Name Role Phone FRANCIA CARLOS Unavailable PROBLEMS Type Condition ICD9-CM Code [id number] Code Onset Dates Condition S tatus SNOMED Code Problem Bipolar disorder, unspecified 296.80 Active 52802853 Problem Bipolar disorder F31.9 Active 137 71023 Problem Bipolar I disorder, most recent episode (or current) mixed, moderate 296.62 Active 693943789 Problem Encounter for long-term (current) use of other medications V58.69 Active 418169233 Problem 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 Ac tive 22857828 Problem 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 314.00 Active 75623635 Problem Generalized anxiety disorder 300.02 A ctive 20783856 Problem Attention-deficit hyperactiv ity disorder, predominantly inattentive type F90.0 Active 12723183 Problem Intellectual disability F79 Active 47264131 Problem Attention deficit hyperactivity disorder F90.9 Active 678185993 Problem Intermittent explosive disorder F63.81 Active 71636994 Problem Moderate intellectual disability F71 Active 88277897 Problem Bipolar disorder, currently in remission, most recent episode unspecified F31.70 Active 64562346 ALLERGIES No Known Allergies ENCOUNTERS Encounter Location Date Diagnosis [facility] [address] [facility] [id number] [address] [place] [phone] Oct, [facility] [address] [id number] [address] [place] [phone] Sep, [facility] [address] [facility] [id number] [address] [place] [address] Sep, Bipolar disorder, currently in remission, most recent episode unspecified F31.70 ; Moderate intellectual disability F71 and Attention-deficit hyperactivity disorder, predominantly inattentive type F90.0 [facility] [address] [id number] [address] [place] [address] Sep, Bipolar disorder, currently in remission, most recent episode unspecified F31.70 [facility] [address] [id number] [address] [place] [address] Aug, Bipolar disorder, currently in remission, most recent episode unspecified F31.70 [facility] [address] [id number] [address] [place] [address] Jul, Bipolar disorder, currently in remission, most recent episode unspecified F31.70 [facility] [address] [id number] [address] [place] [address] Jul, Bipolar disorder, currently in remission, most recent episode unspecified F31.70 [facility] [address] [id number] [address] [place] [address] Jun, [facility] [address] [id number] [address] [place] [address] Jun, Bipolar disorder, currently in remission, most recent episode unspecified F31.70 [facility] [address] [id number] [address] [place] [address] [phone] Jun, Dental examination Z01.20 an d Dental caries K02.9 [facility] [address] [id number] [address] [place] [address] May, Bipolar disorder, currently in remission, most recent episode unspecified F31.70 [facility] [address] [id number] [address] [place] [address] May, Bipolar disorder, currently in remission, most recent episode unspecified F31.70 [facility] [address] [id number] [address] [place] [address] May, Bipolar disorder, currently in remission, most recent episode unspecified F31.70 ; Moderate intellectual disability F71 and Attention-deficit hyperactivity disorder, predominantly inattentive type F90.0 [facility] [address] [id number] [address] [place] [address] Apr, Bipolar disorder, unspecifie d F31.9 [facility] [address] [id number] [address] [place] [address] Apr, [facility] [address] [id number] [address] [place] [address] Apr, [facility] [address] [id number] [address] [place] [address] Apr, [facility] [address] [id number] [address] [place] [phone] March, [facility] [address] [id number] [address] [place] [address] March, Bipolar disorder, currently in remission, most recent episode unspecified F31.70 ; Moderate intellectual disability F71 and Attention-deficit hyperactivity disorder, predominantly inattentive type F90.0 [facility] [address] [id number] [address] [place] [phone] Feb, [facility] [address] [id number] [address] [place] [id number] Feb, Dental examination Z01.20 [facility] [address] [id number] [address] [place] [address] Jan, [facility] [address] [id number] [address] [place] [address] Jan, [facility] [address] [id number] [address] [place] [address] Dec, [facility] [address] [id number] [address] [place] [address] Nov, [facility] [address] [id number] [address] [place] [id number] Nov, Encounter for dental exam an d cleaning w/o abnormal findings Z01.20 [facility] [address] [id number] [address] [place] [phone] Nov, Dental examination Z01.20 [facility] [address] [id number] [address] [place] [address] Oct, [facility] [address] [id number] [address] [place] [address] Oct, Bipolar disorder, currently in remission, most recent episode unspecified F31.70 ; Moderate intellectual disability F71 and Attention-deficit hyperactivity disorder, predominantly inattentive type F90.0 [facility] [address] [id number] [address] [place] [address] Sep, [facility] [address] [id number] [address] [place] [phone] Sep, [facility] [address] [id number] [address] [place] [phone] Aug, [facility] [address] [id number] [address] [place] [address] Aug, Attention-deficit hyperactiv ity disorder, predominantly inattentive type F90.0 ; Moderate intellectual disability 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 and Bipolar disorder F31.9 [facility] [address] [id number] [address] [place] [address] [id number] Jul, Dental examination Z01.20 an d Dental caries K02.9 [facility] [address] [id number] [address] [place] [phone] Jul, [facility] [address] [id number] [address] [place] [address] Jun, Bipolar disorder F31.9 ; Att ention-deficit hyperactivity disorder, predominantly inattentive type F90.0 and Moderate intellectual disability F71 [facility] [address] [id number] [address] [place] [address] Jun, [facility] [address] [id number] [address] [place] [address] May, [facility] [address] [id number] [address] [place] [phone] Apr, [facility] [address] [id number] [address] [place] [phone] March, Intermittent explosive disor jocelyn F63.81 ; Attention deficit hyperactivity disorder F90.9 and Bipolar disorder F31.9 [facility] [address] [facility] [id number] [address] [place] [address] Feb, [facility] [address] [facility] [id number] [address] [place] [address] Jan, [facility] [address] [facility] [id number] [address] [place] [phone] Dec, Encounter for immunization Z 23 [facility] [address] [facility] [id number] [address] [place] [address] Dec, Intermittent explosive disor jocelyn F63.81 ; Attention deficit hyperactivity disorder F90.9 and Bipolar disorder, currently in remission, most recent episode unspecified F31.70 [facility] [address] [facility] [id number] [address] [place] [phone] Nov, [facility] [address] [facility] [id number] [address] [place] [address] Oct, [facility] [address] [facility] [id number] [address] [place] [address] Oct, [facility] [address] [id number] [address] [place] [address] [id number] Oct, Dental examination Z01.20 [facility] [address] [facility] [id number] [address] [place] [address] Sep, [facility] [address] [facility] [id number] [address] [place] [phone] Sep, [facility] [address] [facility] [id number] [address] [place] [address] Sep, Intermittent explosive disor jocelyn F63.81 ; Bipolar disorder F31.9 and Attention deficit hyperactivity disorder F90.9 [facility] [address] [facility] [id number] [address] [place] [phone] Aug, [facility] [address] [id number] [address] [place] [phone] Aug, [facility] [address] [id number] [address] [place] [phone] Aug, [facility] [address] [id number] [address] [place] [phone] Aug, Attention deficit hyperactiv ity disorder F90.9 [facility] [address] [id number] [address] [place] [address] Jul, [facility] [address] [id number] [address] [place] [phone] Jun, [facility] [address] [id number] [address] [place] [address] May, [facility] [address] [id number] [address] [place] [address] Apr, [facility] [address] [id number] [address] [place] [address] Apr, Bipolar disorder F31.9 ; Att ention deficit hyperactivity disorder F90.9 and Intermittent explosive disorder F63.81 [facility] [address] [id number] [address] [place] [phone] March, [facility] [address] [id number] [address] [place] [address] Feb, [facility] [address] [id number] [address] [place] [address] Feb, [facility] [address] [id number] [address] [place] [address] Jan, [facility] [address] [id number] [address] [place] [address] Jan, [facility] [address] [id number] [address] [place] [phone] Dec, [facility] [address] [id number] [address] [place] [address] Nov, [facility] [address] [facility] [id number] [address] [place] [address] Nov, [facility] [address] [place] [id number] [address] [place] [phone] Nov, Attention deficit hyperactiv ity disorder F90.9 ; Intermittent explosive disorder F63.81 and Bipolar disorder F31.9 [facility] [address] [facility] [id number] [address] [place] [address] Oct, [facility] [address] [facility] [id number] [address] [place] [phone] Oct, [facility] [address] [place] [id number] [address] [place] [phone] Sep, [facility] [address] [id number] [address] [place] [phone] Aug, [facility] [address] [id number] [address] [place] [phone] Jul, [facility] [address] [facility] [id number] [address] [place] [phone] Jul, [facility] [address] [id number] [address] [place] [address] Jul, Anxiety, generalized 300.02 ; Bipolar disorder, unspecified 296.80 ; 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.00 ; 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 and Impulse control disorder, unspecified 312.30 [facility] [address] [facility] [id number] [address] [place] [phone] Jul, [facility] [address] [facility] [id number] [address] [place] [address] Jun, [facility] [address] [facility] [id number] [address] [place] [phone] May, [facility] [address] [id number] [address] [place] [address] Apr, [facility] [address] [id number] [address] [place] [address] Apr, Bipolar disorder, unspecifie d 296.80 ; Generalized anxiety disorder 300.02 and 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.00 [facility] [address] [id number] [address] [place] [phone] Apr, [facility] [address] [id number] [address] [place] [address] March, [facility] [address] [id number] [address] [place] [address] March, [facility] [address] [id number] [address] [place] [address] March, [facility] [address] [id number] [address] [place] [address] March, [facility] [address] [id number] [address] [place] [address] Feb, [facility] [address] [id number] [address] [place] [address] Feb, [facility] [address] [id number] [address] [place] [address] Jan, [facility] [address] [id number] [address] [place] [address] Jan, [facility] [address] [id number] [address] [place] [address] Jan, [facility] [address] [id number] [address] [place] [address] Jan, [facility] [address] [id number] [address] [place] [phone] Jan, [facility] [address] [id number] [address] [place] [phone] Dec, [facility] [address] [id number] [address] [place] [address] [place] [address] Dec, [facility] [address] [id number] [address] [place] [address], [place] [address] Nov, [facility] [address] [id number] [address] [place] [address], [place] [address] Nov, [facility] [address] [id number] [address] [place] [address], [place] [address] Nov, [facility] [address] [id number] [address] [place] [address], [place] [address] Oct, [facility] [address] [id number] [address] [place] [address], [place] [address] Oct, [facility] [address] [id number] [address] [place] [address], [place] [address] Oct, [facility] [address] [id number] [address] [place] [address], [place] [address] Oct, [facility] [address] [id number] [address] [place] [address], [place] [address] Oct, [facility] [address] [id number] [address] [place] [address], [place] [address] Oct, [facility] [address] [id number] [address] [place] [address], [place] [address] Sep, [facility] [address] [id number] [address] [place] [address], [place] [address] Sep, [facility] [address] [id number] [address] [place] [address], [place] [address] Sep, [facility] [address] [id number] [address] [place] [address], [place] [address] Aug, [facility] [address] [id number] [address] [place] [address], [place] [address] Aug, [facility] [address] [id number] [address] [place] [address], [place] [address] Jul, [facility] [address] [id number] [address] [place] [address], [place] [address] Jul, [facility] [address] [id number] [address] [place] [address], [place] [address] Jun, [facility] [address] [id number] [address] [place] [address], [place] [address] Jun, [facility] [address] [id number] [address] [place] [address], [place] [address] Jun, [facility] [address] [id number] [address] [place] [address], [place] [address] Jun, [facility] [address] [id number] [address] [place] [address], [place] [address] May, [facility] [address] [id number] [address] [place] [address], [place] [address] May, [facility] [address] [id number] [address] [place] [address], [place] [address] May, [facility] [address] [id number] [address] [place] [address], [place] [address] Apr, [facility] [address] [id number] [address] [place] [address], [place] [address] Apr, [facility] [address] [id number] [address] [place] [address], [place] [address] Apr, [facility] [address] [id number] [address] [place] [address], [place] [address] Apr, [facility] [address] [id number] [address] [place] [address], [place] [address] March, [facility] [address] [id number] [address] [place] [address], [place] [address] March, [facility] [address] [id number] [address] [place] [address], [place] [address] March, [facility] [address] [id number] [address] [place] [address], [place] [address] March, [facility] [address] [id number] [facility] [place] [address] Feb, [facility] [address] [id number] [address] [place] [address], [place] [address] Feb, [facility] [address] [id number] [facility] [place] [address] Jan, [facility] [address] [id number] [address] [place] [address], [place] [address] Jan, [facility] [address] [id number] [address] [place] [address], [place] [address] Jan, [facility] [address] [id number] [address] [place] [address], [place] [address] Jan, [facility] [address] [id number] [address] [place] [address], [place] [address] Jan, [facility] [address] [id number] [address] [place] [address], [place] [address] Jan, [facility] [address] [id number] [address] [place] [address], [place] [address] Jan, [facility] [address] [id number] [address] [place] [address], [place] [address] Jan, [facility] [address] [id number] [address] [place] [address], [place] [address] Dec, [facility] [address] [id number] [address] [place] [address], [place] [address] Dec, [facility] [address] [id number] [address] [place] [address], [place] [address] Dec, [facility] [address] [id number] [address] [place] [address], [place] [address] Dec, [facility] [address] [id number] [address] [place] [address], [place] [address] Nov, [facility] [address] [id number] [address] [place] [address], [place] [address] Nov, [facility] [address] [id number] [address] [place] [address], [place] [address] Oct, [facility] [address] [id number] [address] [place] [address], [place] [address] Oct, [facility] [address] [id number] [address] [place] [address], [place] [address] Oct, [facility] [address] [id number] [address] [place] [address], [place] [address] Oct, [facility] [address] [id number] [address] [place] [address], [place] [address] Sep, [facility] [address] [id number] [address] [place] [address], [place] [address] Sep, [facility] [address] [id number] [address] [place] [address], [place] [address] Sep, [facility] [address] [id number] [address] [place] [address], [place] [address] Sep, [facility] [address] [id number] [address] [place] [address], [place] [address] Aug, [facility] [address] [id number] [address] [place] [address], [place] [address] Aug, [facility] [address] [id number] [address] [place] [address], [place] [address] Aug, [facility] [address] [id number] [address] [place] [address], [place] [address] Jul, [facility] [address] [id number] [address] [place] [address], [place] [address] Jul, [facility] [address] [id number] [address] [place] [address], [place] [address] Jun, [facility] [address] [id number] [address] [place] [address], [place] [address] Jun, [facility] [address] [id number] [address] [place] [address], [place] [address] May, [facility] [address] [id number] [address] [place] [address], [place] [address] May, [facility] [address] [id number] [address] [place] [address], [place] [address] Apr, [facility] [address] [id number] [address] [place] [address], [place] [address] March, [facility] [address] [id number] [address] [place] [address], [place] [address] March, [facility] [address] [id number] [address] [place] [address], [place] [address] Feb, [facility] [address] [id number] [address] [place] [address], [place] [address] Jan, [facility] [address] [id number] [address] [place] [address], [place] [address] Jan, [facility] [address] [id number] [address] [place] [address], [place] [address] Dec, [facility] [address] [id number] [address] [place] [address], [place] [address] Dec, [facility] [facility] [address] [id number] [address] [place] [address], [place] [address] Nov, [facility] [address] [id number] [address] [place] [address], [place] [address] Nov, [facility] [address] [id number] [address] [place] [address], [place] [address] Nov, [facility] [address] [id number] [address] [place] [address], [place] [address] Nov, [facility] [address] [id number] [address] [place] [address], [place] [address] Nov, [facility] [address] [id number] [address] [place] [address], [place] [address] 31 Oct, 2012 [facility] [address] [id number] [address] [place] [address], [place] [address] 31 Oct, 2012 [facility] [address] [id number] [address] [place] [address], [place] [address] Oct, [facility] [address] [id number] [address] [place] [address], [place] [address] Oct, [facility] [address] [id number] [address] [place] [address], [place] [address] Oct, [facility] [address] [id number] [address] [place] [address], [place] [address] 05 Oct, 2012 [facility] [address] [id number] [address] [place] [address], [place] [address] 05 Oct, 2012 [facility] [address] [id number] [address] [place] [address], [place] [address] Oct, [facility] [address] [id number] [address] [place] [address], [place] [address] Sep, [facility] [address] [id number] [address] [place] [address], [place] [address] Sep, [facility] [address] [id number] [address] [place] [address], [place] [address] Sep, [facility] [address] [id number] [address] [place] [address], [place] [address] Aug, [facility] [address] [id number] [address] [place] [address], [place] [address] 17 Aug, 2012 [facility] [address] [id number] [address] [place] [address], [place] [address] 10 Aug, 2012 [facility] [address] [id number] [address] [place] [address], [place] [address] 09 Aug, 2012 [facility] [address] [id number] [address] [place] [address], [place] [address] Aug, [facility] [address] [id number] [address] [place] [address], [place] [address] Jul, [facility] [address] [id number] [address] [place] [address], [place] [address] Jul, [facility] [address] [id number] [address] [place] [address], [place] [address] Jun, [facility] [address] [id number] [address] [place] [address], [place] [address] May, [facility] [address] [id number] [address] [place] [address], [place] [address] May, [facility] [address] [id number] [address] [place] [address], [place] [address] Apr, [facility] [address] [id number] [address] [place] [address], [place] [address] March, [facility] [address] [id number] [address] [place] [address], [place] [address] March, [facility] [address] [id number] [address] [place] [address], [place] [address] March, [facility] [address] [id number] [address] [place] [address], [place] [address] March, [facility] [address] [id number] [address] [place] [address], [place] [address] Feb, [facility] [address] [id number] [address] [place] [address], [place] [address] Feb, [facility] [address] [id number] [address] [place] [address], [place] [address] Jan, [facility] [address] [id number] [address] [place] [address], [place] [address] Dec, [facility] [address] [id number] [address] [place] [address], [place] [address] Dec, [facility] [address] [id number] [address] [place] [address] Dec, [facility] [address] [id number] [address] [place] [address] Nov, [facility] [address] [id number] [address] [place] [address] Nov, [facility] [address] [id number] [address] [place] [address] Nov, [facility] [address] [id number] [address] [place] [address] Oct, [facility] [address] [id number] [address] [place] [address] Sep, [facility] [address] [id number] [address] [place] [address] Aug, [facility] [address] [facility] [id number] [address] [place] [address] Aug, [facility] [address] [id number] [address] [place] [address] May, [facility] [address] [facility] [id number] [address] [place] [address] Sep, [facility] [address] [facility] [id number] [address] [place] [address] Sep, IMMUNIZATIONS No Known Immunizations SOCIAL HISTORY Never Assessed REASON FOR VISIT f/u Pietro Adame Pt needs Seroquel in 50 mg tabs as it is being sen t for 100mg and host family is not supposed to cut it., Needs physical orders fo r what is requested on Chart documents under prescription requests. PLAN OF CARE Activity Details Follow Up 4 Weeks Reason: VITAL SIGNS Height 74.5 in 2018-10-17 Weight 246.2 lbs 2018-10-17 Heart Rate 76 bpm 2018-10-17 Respiratory Rate 2018-10-17 BMI 31.18 kg/m2 2018-10-17 Blood pressure systolic 112 mmHg 2018-10-17 Blood pressure diastolic 72 mmHg 2018-10-17 MEDICATIONS Medication Instructions Dosage Frequency Start Date End Date Duration S tatus Clonidine HCl 0.1 MG TAKE ONE TABLET BY MOUTH EVERY MORNING, TAKE TWO TABLETS AT 2:OO PM, AND TAKE ONE TABLET EVERY NIGHT AT BEDTIME Active Vyvanse 70 MG Orally Once a day 1 capsule in the morning 24h Sep, Active Rozerem 8 mg TAKE ONE TABLET BY MOUTH EVERY NIGHT AT BEDTIME Active Seroquel 50 MG Orally at night 1 tablet 30 days Active Tylenol 325 mg Orally every 4 hrs, not to exceed 10 in 24 hours 1-2 tablets as needed Sep, Active Tums 500 MG Orally as needed for heartburn, not to e xceed 10 in 24 hours 1-2 tablets Sep, 30 day(s) Active Trileptal 300 mg Orally 3 times a day 1 tablet 8h Active Fluvoxamine Maleate 100 mg TAKE THREE TABLETS BY MOUTH EVERY NIGHT AT BEDTIME Active RESULTS No Results PROCEDURES No Known procedures INSTRUCTIONS MEDICATIONS ADMINISTERED No Known Medications MEDICAL (GENERAL) HISTORY Type Description Date Medical History bipolar Medical History adhd Medical History anxiety
--- OUTSIDE RECORDS SUMMARY | 2020-03-18 15:32 | XMS REPORT ---
Author Author Jose Cruz FELDMAN CARLOS [facility] Address [address] [place] [address] Care Team Providers Care Control Chemist Name Role Phone LIZETANGIE ANAYAYLA Unavailable PROBLEMS Type Condition ICD9-CM Code SZI36-TT Code Onset Dates Condition S tatus SNOMED Code Problem Bipolar disorder, unspecified 296.80 Active 06537652 Problem Bipolar disorder F31.9 Active 137 65627 Problem Bipolar I disorder, most recent episode (or current) mixed, moderate 296.62 Active 526605332 Problem Encounter for long-term (current) use of other medications V58.69 Active 093655024 Problem 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 Ac tive 46425820 Problem 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 314.00 Active 71938330 Problem Generalized anxiety disorder 300.02 A ctive 28652347 Problem Attention-deficit hyperactiv ity disorder, predominantly inattentive type F90.0 Active 34226706 Problem Intellectual disability F79 Active 47549994 Problem Attention deficit hyperactivity disorder F90.9 Active 644975499 Problem Intermittent explosive disorder F63.81 Active 47260516 Problem Moderate intellectual disability F71 Active 11018448 Problem Bipolar disorder, currently in remission, most recent episode unspecified F31.70 Active 23715367 ALLERGIES No Information ENCOUNTERS Encounter Location Date Diagnosis [facility] [address] [facility] [id number] [address] [place] [address] Jul, Bipolar disorder, currently in remission, most recent episode unspecified F31.70 [facility] [address] [facility] [id number] [address] [place] [address] Jul, Bipolar disorder, currently in remission, most recent episode unspecified F31.70 [facility] [address] [facility] [id number] [address] [place] [address] Jun, [facility] [address] [facility] [id number] [address] [place] [address] Jun, Bipolar disorder, currently in remission, most recent episode unspecified F31.70 [facility] [address] [id number] [address] [place] [address] [id number] Jun, Dental examination Z01.20 an d Dental caries K02.9 [facility] [address] [id number] [address] [place] [address] May, Bipolar disorder, currently in remission, most recent episode unspecified F31.70 [facility] [address] [id number] [address] [place] [address] May, Bipolar disorder, currently in remission, most recent episode unspecified F31.70 [facility] [address] [id number] [address] [place] [address] May, Bipolar disorder, currently in remission, most recent episode unspecified F31.70 ; Moderate intellectual disability F71 and Attention-deficit hyperactivity disorder, predominantly inattentive type F90.0 [facility] [address] [id number] [address] [place] [address] Apr, Bipolar disorder, unspecifie d F31.9 [facility] [address] [id number] [address] [place] [address] Apr, [facility] [address] [id number] [address] [place] [address] Apr, [facility] [address] [id number] [address] [place] [address] Apr, [facility] [address] [id number] [address] [place] [address] March, [facility] [address] [id number] [address] [place] [address] March, Bipolar disorder, currently in remission, most recent episode unspecified F31.70 ; Moderate intellectual disability F71 and Attention-deficit hyperactivity disorder, predominantly inattentive type F90.0 [facility] [address] [id number] [address] [place] [address] Feb, [facility] [address] [id number] [address] [place] [address] [id number] Feb, Dental examination Z01.20 [facility] [address] [id number] [address] [place] [address] Jan, [facility] [address] [id number] [address] [place] [id number] Jan, [facility] [address] [id number] [address] [place] [phone] Dec, [facility] [address] [id number] [address] [place] [address] Nov, [facility] [address] [id number] [address] [place] [address] [id number] Nov, Encounter for dental exam an d cleaning w/o abnormal findings Z01.20 [facility] [address] [id number] [address] [place] [address] [id number] Nov, Dental examination Z01.20 [facility] [address] [id number] [address] [place] [address] Oct, [facility] [address] [id number] [address] [place] [address] Oct, Bipolar disorder, currently in remission, most recent episode unspecified F31.70 ; Moderate intellectual disability F71 and Attention-deficit hyperactivity disorder, predominantly inattentive type F90.0 [facility] [address] [id number] [address] [place] [phone] Sep, [facility] [address] [id number] [address] [place] [address] Sep, [facility] [address] [id number] [address] [place] [phone] Aug, [facility] [address] [id number] [address] [place] [address] Aug, Attention-deficit hyperactiv ity disorder, predominantly inattentive type F90.0 ; Moderate intellectual disability F71 and Bipolar disorder F31.9 [facility] [address] [id number] [address] [place] [address] [id number] 11 Jul, 2017 Dental examination Z01.20 an d Dental caries K02.9 [facility] [address] [facility] [id number] [address] [place] [phone] 05 Jul, 2017 [facility] [address] [facility] [id number] [address] [place] [address] Jun, Bipolar disorder F31.9 ; Att ention-deficit hyperactivity disorder, predominantly inattentive type F90.0 and Moderate intellectual disability F71 [facility] [address] [facility] [id number] [address] [place] [phone] Jun, [facility] [address] [facility] [id number] [address] [place] [address] May, [facility] [address] [facility] [id number] [address] [place] [address] Apr, [facility] [address] [place] [id number] [address] [place] [id number] March, Intermittent explosive disor jocelyn F63.81 ; Attention deficit hyperactivity disorder F90.9 and Bipolar disorder F31.9 [facility] [address] [place] [id number] [address] [place] [phone] Feb, [facility] [address] [facility] [id number] [address] [place] [phone] Jan, [facility] [address] [facility] [id number] [address] [place] [phone] 13 Dec, 2016 Encounter for immunization Z 23 [facility] [address] [facility] [id number] [address] [place] [phone] 13 Dec, 2016 Intermittent explosive disor jocelyn F63.81 ; Attention deficit hyperactivity disorder F90.9 and Bipolar disorder, currently in remission, most recent episode unspecified F31.70 [facility] [address] [facility] [id number] [address] [place] [phone] Nov, [facility] [address] [id number] [address] [place] [phone] Oct, [facility] [address] [id number] [address] [place] [phone] Oct, [facility] [address] [id number] [address] [place] [address] [id number] Oct, Dental examination Z01.20 [facility] [address] [id number] [address] [place] [phone] Sep, [facility] [address] [id number] [address] [place] [address] Sep, [facility] [address] [facility] [id number] [address] [place] [phone] Sep, Intermittent explosive disor jocelyn F63.81 ; Bipolar disorder F31.9 and Attention deficit hyperactivity disorder F90.9 [facility] [address] [id number] [address] [place] [phone] Aug, [facility] [address] [id number] [address] [place] [phone] Aug, [facility] [address] [facility] [id number] [address] [place] [address] Aug, [facility] [address] [id number] [address] [place] [phone] Aug, Attention deficit hyperactiv ity disorder F90.9 [facility] [address] [id number] [address] [place] [phone] Jul, [facility] [address] [id number] [address] [place] [phone] Jun, [facility] [address] [id number] [address] [place] [phone] May, [facility] [address] [facility] [id number] [address] [place] [phone] Apr, [facility] [address] [id number] [address] [place] [phone] Apr, Bipolar disorder F31.9 ; Att ention deficit hyperactivity disorder F90.9 and Intermittent explosive disorder F63.81 [facility] [address] [id number] [address] [place] [phone] March, [facility] [address] [id number] [address] [place] [address] Feb, [facility] [address] [id number] [address] [place] [phone] Feb, [facility] [address] [id number] [address] [place] [phone] Jan, [facility] [address] [id number] [address] [place] [phone] Jan, [facility] [address] [id number] [address] [place] [phone] Dec, [facility] [address] [id number] [address] [place] [phone] Nov, [facility] [address] [id number] [address] [place] [phone] Nov, [facility] [address] [id number] [address] [place] [phone] Nov, Attention deficit hyperactiv ity disorder F90.9 ; Intermittent explosive disorder F63.81 and Bipolar disorder F31.9 [facility] [address] [id number] [address] [place] [address] Oct, [facility] [address] [id number] [address] [place] [phone] Oct, [facility] [address] [id number] [address] [place] [phone] Sep, [facility] [address] [id number] [address] [place] [phone] Aug, [facility] [address] [id number] [address] [place] [phone] Jul, [facility] [address] [id number] [address] [place] [phone] Jul, [facility] [address] [id number] [address] [place] [address] Jul, Anxiety, generalized 300.02 ; Bipolar disorder, unspecified 296.80 ; 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.00 ; 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 and Impulse control disorder, unspecified 312.30 [facility] [address] [id number] [address] [place] [phone] Jul, [facility] [address] [id number] [address] [place] [phone] Jun, [facility] [address] [facility] [id number] [address] [place] [phone] May, [facility] [address] [id number] [address] [place] [address] Apr, [facility] [address] [facility] [id number] [address] [place] [address] Apr, Bipolar disorder, unspecifie d 296.80 ; Generalized anxiety disorder 300.02 and 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.00 [facility] [address] [facility] [id number] [address] [place] [phone] Apr, [facility] [address] [id number] [address] [place] [phone] March, [facility] [address] [id number] [address] [place] [phone] March, [facility] [address] [facility] [id number] [address] [place] [phone] March, [facility] [address] [facility] [id number] [address] [place] [phone] March, [facility] [address] [id number] [address] [place] [address], [place] [address] 14 Feb, 2015 [facility] [address] [id number] [address] [place] [address], [place] [address] Feb, [facility] [address] [id number] [address] [place] [address], [place] [address] Jan, [facility] [address] [id number] [address] [place] [address], [place] [address] Jan, [facility] [address] [id number] [address] [place] [address], [place] [address] Jan, [facility] [address] [id number] [address] [place] [address], [place] [address] Jan, [facility] [address] [id number] [address] [place] [address], [place] [address] Jan, [facility] [address] [id number] [address] [place] [address], [place] [address] Dec, [facility] [address] [id number] [address] [place] [address], [place] [address] Dec, [facility] [address] [id number] [address] [place] [address], [place] [address] Nov, [facility] [address] [id number] [address] [place] [address], [place] [address] Nov, [facility] [address] [id number] [address] [place] [address], [place] [address] Nov, [facility] [address] [id number] [address] [place] [address], [place] [address] Oct, [facility] [address] [id number] [address] [place] [address], [place] [address] Oct, [facility] [address] [id number] [address] [place] [address], [place] [address] Oct, [facility] [address] [id number] [address] [place] [address], [place] [address] Oct, [facility] [address] [id number] [address] [place] [address], [place] [address] Oct, [facility] [address] [id number] [address] [place] [address], [place] [address] Oct, [facility] [address] [id number] [address] [place] [address], [place] [address] Sep, [facility] [address] [id number] [address] [place] [address], [place] [address] Sep, [facility] [address] [id number] [address] [place] [address], [place] [address] Sep, [facility] [address] [id number] [address] [place] [address], [place] [address] Aug, [facility] [address] [id number] [address] [place] [address], [place] [address] Aug, [facility] [address] [id number] [address] [place] [address], [place] [address] Jul, [facility] [address] [id number] [address] [place] [address], [place] [address] Jul, [facility] [address] [id number] [address] [place] [address], [place] [address] Jun, [facility] [address] [id number] [address] [place] [address], [place] [address] Jun, [facility] [address] [id number] [address] [place] [address], [place] [address] Jun, [facility] [address] [id number] [address] [place] [address], [place] [address] Jun, [facility] [address] [id number] [address] [place] [address], [place] [address] May, [facility] [address] [id number] [address] [place] [address], [place] [address] May, [facility] [address] [id number] [facility] [place] [address] 16 May, 2014 [facility] [address] [id number] [facility] [place] [address] Apr, [facility] [address] [id number] [facility] [place] [address] Apr, [facility] [address] [id number] [address] [place] [address], [place] [address] Apr, [facility] [address] [id number] [facility] [place] [address] Apr, [facility] [address] [id number] [address] [place] [address], [place] [address] March, [facility] [address] [id number] [address] [place] [address], [place] [address] March, [facility] [address] [id number] [address] [place] [address], [place] [address] March, [facility] [address] [id number] [address] [place] [address], [place] [address] March, [facility] [address] [id number] [address] [place] [address], [place] [address] Feb, [facility] [address] [id number] [address] [place] [address], [place] [address] Feb, [facility] [address] [id number] [address] [place] [address], [place] [address] Jan, [facility] [address] [id number] [address] [place] [address], [place] [address] Jan, [facility] [address] [id number] [address] [place] [address], [place] [address] Jan, [facility] [address] [id number] [address] [place] [address], [place] [address] Jan, [facility] [address] [id number] [address] [place] [address], [place] [address] Jan, [facility] [address] [id number] [facility] [place] [address] Jan, [facility] [address] [id number] [address] [place] [address], [place] [address] Jan, [facility] [address] [id number] [facility] [place] [address] Jan, [facility] [address] [id number] [address] [place] [address], [place] [address] Dec, [facility] [address] [id number] [address] [place] [address], [place] [address] Dec, [facility] [address] [id number] [address] [place] [address], [place] [address] Dec, [facility] [address] [id number] [address] [place] [address], [place] [address] Dec, [facility] [address] [id number] [address] [place] [address], [place] [address] Nov, [facility] [address] [id number] [address] [place] [address], [place] [address] Nov, [facility] [address] [id number] [address] [place] [address], [place] [address] Oct, [facility] [address] [id number] [address] [place] [address], [place] [address] Oct, [facility] [address] [id number] [address] [place] [address], [place] [address] Oct, [facility] [address] [id number] [address] [place] [address], [place] [address] Oct, [facility] [address] [id number] [address] [place] [address], [place] [id number] Sep, [facility] [address] [id number] [address] [place] [address], [place] [id number] Sep, [facility] [address] [id number] [address] [place] [address] 07 Sep, 2013 [facility] [address] [id number] [address] [place] [address], [place] [id number] 07 Sep, 2013 [facility] [address] [id number] [address] [place] [address], [place] [address] Aug, [facility] [address] [id number] [address] [place] [address], [place] [id number] Aug, [facility] [address] [id number] [address] [place] [address], [place] [address] Aug, [facility] [address] [id number] [address] [place] [address], [place] [id number] Jul, [facility] [address] [id number] [address] [place] [address], [place] [id number] Jul, [facility] [address] [id number] [address] [place] [address], [place] [id number] Jun, [facility] [address] [id number] [address] [place] [address], [place] [address] Jun, [facility] [address] [id number] [address] [place] [address], [place] [id number] May[facility] [address] [id number] [address] [place] [address], [place] [address] May, [facility] [address] [id number] [address] [place] [address], [place] [id number] Apr, [facility] [address] [id number] [address] [place] [address], [place] [id number] March, [facility] [address] [id number] [address] [place] [address], [place] [id number] March, [facility] [address] [id number] [address] [place] [address], [place] [id number] Feb, [facility] [address] [id number] [address] [place] [address], [place] [id number] Jan, [facility] [address] [id number] [address] [place] [address], [place] [id number] Jan, [facility] [address] [id number] [address] [place] [address], [place] [id number] Dec, [facility] [address] [id number] [address] [place] [address], [place] [id number] Dec, [facility] [address] [id number] [address] [place] [address], [place] [id number] Nov, [facility] [address] [id number] [address] [place] [address], [place] [id number] Nov, [facility] [address] [id number] [address] [place] [address], [place] [id number] Nov, [facility] [address] [id number] [address] [place] [address], [place] [id number] Nov, [facility] [address] [id number] [address] [place] [address], [place] [id number] Nov, [facility] [address] [id number] [address] [place] [address], [place] [address] Oct, [facility] [address] [id number] [address] [place] [address], [place] [id number] Oct, [facility] [address] [id number] [address] [place] [address], [place] [address] Oct, [facility] [address] [id number] [address] [place] [address], [place] [address] Oct, [facility] [address] [id number] [address] [place] [address], [place] [address] Oct, [facility] [address] [id number] [address] [place] [address], [place] [id number] Oct, [facility] [address] [id number] [address] [place] [address], [place] [id number] Oct, [facility] [address] [id number] [address] [place] [address], [place] [address] Oct, [facility] [address] [id number] [address] [place] [address], [place] [address] Sep, [facility] [address] [id number] [address] [place] [address], [place] [id number] Sep, [facility] [address] [id number] [address] [place] [address], [place] [address] Sep, [facility] [address] [id number] [address] [place] [address], [place] [address] Aug, [facility] [address] [id number] [address] [place] [address], [place] [address] Aug, [facility] [address] [id number] [address] [place] [address], [place] [address] Aug, [facility] [address] [id number] [address] [place] [address], [place] [address] Aug, [facility] [address] [id number] [address] [place] [address], [place] [address] Aug, [facility] [address] [id number] [address] [place] [address], [place] [id number] Jul, [facility] [address] [id number] [address] [place] [address], [place] [address] Jul, [facility] [address] [id number] [address] [place] [address], [place] [address] Jun, [facility] [address] [id number] [address] [place] [address], [place] [address] May, [facility] [address] [id number] [address] [place] [address], [place] [address] May, [facility] [address] [id number] [address] [place] [address], [place] [address] Apr, [facility] [address] [id number] [address] [place] [address], [place] [address] March, [facility] [address] [id number] [address] [place] [address], [place] [address] March, [facility] [address] [id number] [address] [place] [address], [place] [address] March, [facility] [address] [id number] [address] [place] [address], [place] [address] March, [facility] [address] [id number] [address] [place] [address], [place] [address] Feb, [facility] [address] [id number] [address] [place] [address], [place] [address] Feb, [facility] [address] [id number] [address] [place] [address], [place] [address] Jan, [facility] [address] [id number] [address] [place] [address], [place] [address] Dec, [facility] [address] [id number] [address] [place] [address], [place] [id number] Dec, [facility] [address] [id number] [address] [place] [address], [place] [address] Dec, [facility] [address] [id number] [address] [place] [address], [place] [address] Nov, [facility] [address] [id number] [address] [place] [address], [place] [address] Nov, [facility] [address] [id number] [address] [place] [address], [place] [address] Nov, [facility] [address] [id number] [address] [place] [address], [place] [address] Oct, [facility] [address] [id number] [address] [place] [address], [place] [id number] Sep, [facility] [address] [id number] [address] [place] [address], [place] [address] Aug, [facility] [address] [id number] [address] [place] [address], [place] [address] Aug, [facility] [address] [facility] [id number] [address] [address] May, [facility] [address] [facility] [id number] [address] [place] [id number] Sep, [facility] [address] [facility] [id number] [address] [place] [id number] Sep, IMMUNIZATIONS No Known Immunizations SOCIAL HISTORY Never Assessed REASON FOR VISIT called patient/Abram PLAN OF CARE VITAL SIGNS MEDICATIONS Unknown Medications RESULTS No Results PROCEDURES No Known procedures INSTRUCTIONS MEDICATIONS ADMINISTERED No Known Medications MEDICAL (GENERAL) HISTORY Type Description Date Medical History bipolar Medical History adhd Medical History anxiety
--- OUTSIDE RECORDS SUMMARY | 2020-03-18 15:32 | XMS REPORT ---
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 Role Phone AYDIN [place] Unavailable Unavailable PROBLEMS Type Condition ICD9-CM Code GRX65-WD Code Onset Dates Condition S tatus SNOMED Code Problem Bipolar disorder, unspecified 296.80 Active 47963421 Problem Bipolar disorder F31.9 Active 137 60444 Problem Bipolar I disorder, most recent episode (or current) mixed, moderate 296.62 Active 025550758 Problem Encounter for long-term (current) use of other medications V58.69 Active 111057087 Problem 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 Ac tive 95594991 Problem 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 314.00 Active 00554429 Problem Generalized anxiety disorder 300.02 A ctive 60671057 Problem Attention-deficit hyperactiv ity disorder, predominantly inattentive type F90.0 Active 74387322 Problem Intellectual disability F79 Active 05234096 Problem Attention deficit hyperactivity disorder F90.9 Active 157009671 Problem Intermittent explosive disorder F63.81 Active 65028528 Problem Moderate intellectual disability F71 Active 49123705 Problem Bipolar disorder, currently in remission, most recent episode unspecified F31.70 Active 82315168 ALLERGIES No Known Allergies ENCOUNTERS Encounter Location Date Diagnosis [facility] [address] [facility] [id number] [address] [place] [address] Oct, [facility] [address] [facility] [id number] [address] [place] [address] Sep, Bipolar disorder, currently in remission, most recent episode unspecified F31.70 [facility] [address] [facility] [id number] [address] [place] [id number] Sep, 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 stat us requiring routine preventive dental care K08.9 and Arrested dental caries K02.3 [facility] [address] [facility] [id number] [address] [place] [address] Sep, Bipolar disorder, currently in remission, most recent episode unspecified F31.70 ; Moderate intellectual disability F71 and Attention-deficit hyperactivity disorder, predominantly inattentive type F90.0 [facility] [address] [id number] [address] [place] [address] Sep, Bipolar disorder, currently in remission, most recent episode unspecified F31.70 [facility] [address] [id number] [address] [place] [address] Aug, Bipolar disorder, currently in remission, most recent episode unspecified F31.70 [facility] [address] [id number] [address] [place] [address] Jul, Bipolar disorder, currently in remission, most recent episode unspecified F31.70 [facility] [address] [id number] [address] [place] [address] Jul, Bipolar disorder, currently in remission, most recent episode unspecified F31.70 [facility] [address] [id number] [address] [place] [address] Jun, [facility] [address] [id number] [address] [place] [address] Jun, Bipolar disorder, currently in remission, most recent episode unspecified F31.70 [facility] [address] [id number] [address] [place] [id number] Jun, Dental examination Z01.20 an d Dental caries K02.9 [facility] [address] [id number] [address] [place] [address] May, Bipolar disorder, currently in remission, most recent episode unspecified F31.70 [facility] [address] [id number] [address] [place] [address] May, Bipolar disorder, currently in remission, most recent episode unspecified F31.70 [facility] [address] [id number] [address] [place] [address] May, Bipolar disorder, currently in remission, most recent episode unspecified F31.70 ; Moderate intellectual disability F71 and Attention-deficit hyperactivity disorder, predominantly inattentive type F90.0 [facility] [address] [id number] [address] [place] [address] Apr, Bipolar disorder, unspecifie d F31.9 [facility] [address] [id number] [address] [place] [address] Apr, [facility] [address] [id number] [address] [place] [address] Apr, [facility] [address] [id number] [address] [place] [address] Apr, [facility] [address] [id number] [address] [place] [address] March, [facility] [address] [id number] [address] [place] [address] March, Bipolar disorder, currently in remission, most recent episode unspecified F31.70 ; Moderate intellectual disability F71 and Attention-deficit hyperactivity disorder, predominantly inattentive type F90.0 [facility] [address] [id number] [address] [place] [address] Feb, [facility] [address] [id number] [address] [place] [address] [id number] Feb, Dental examination Z01.20 [facility] [address] [id number] [address] [place] [address] Jan, [facility] [address] [id number] [address] [place] [address] Jan, [facility] [address] [id number] [address] [place] [address] Dec, [facility] [address] [id number] [address] [place] [phone] Nov, [facility] [address] [id number] [address] [place] [address] [id number] Nov, Dental examination Z01.20 [facility] [address] [id number] [address] [place] [address] [id number] Nov, Encounter for dental exam an d cleaning w/o abnormal findings Z01.20 [facility] [address] [id number] [address] [place] [address] Oct, [facility] [address] [id number] [address] [place] [address] Oct, Bipolar disorder, currently in remission, most recent episode unspecified F31.70 ; Moderate intellectual disability F71 and Attention-deficit hyperactivity disorder, predominantly inattentive type F90.0 [facility] [address] [id number] [address] [place] [address] Sep, [facility] [address] [id number] [address] [place] [address] Sep, [facility] [address] [id number] [address] [place] [address] Aug, [facility] [address] [id number] [address] [place] [address] Aug, Attention-deficit hyperactiv ity disorder, predominantly inattentive type F90.0 ; Moderate intellectual disability 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 and Bipolar disorder F31.9 [facility] [address] [id number] [address] [place] [address] [id number] Jul, Dental examination Z01.20 an d Dental caries K02.9 [facility] [address] [id number] [address] [place] [phone] Jul, [facility] [address] [id number] [address] [place] [address] Jun, Bipolar disorder F31.9 ; Att ention-deficit hyperactivity disorder, predominantly inattentive type F90.0 and Moderate intellectual disability F71 [facility] [address] [id number] [address] [place] [address] Jun, [facility] [address] [id number] [address] [place] [address] May, [facility] [address] [facility] [id number] [address] [place] [address] Apr, [facility] [address] [facility] [id number] [address] [place] [address] March, Intermittent explosive disor jocelyn F63.81 ; Attention deficit hyperactivity disorder F90.9 and Bipolar disorder F31.9 [facility] [address] [facility] [id number] [address] [place] [address] Feb, [facility] [address] [facility] [id number] [address] [place] [phone] Jan, [facility] [address] [facility] [id number] [address] [place] [phone] 13 Dec, 2016 Intermittent explosive disor jocelyn F63.81 ; Attention deficit hyperactivity disorder F90.9 and Bipolar disorder, currently in remission, most recent episode unspecified F31.70 [facility] [address] [facility] [id number] [address] [place] [id number] 13 Dec, 2016 Encounter for immunization Z 23 [facility] [address] [facility] [id number] [address] [place] [address] Nov, [facility] [address] [facility] [id number] [address] [place] [address] Oct, [facility] [address] [facility] [id number] [address] [place] [address] Oct, [facility] [address] [id number] [address] [place] [address] [id number] Oct, Dental examination Z01.20 [facility] [address] [facility] [id number] [address] [place] [phone] Sep, [facility] [address] [facility] [id number] [address] [place] [address] Sep, [facility] [address] [facility] [id number] [address] [place] [address] Sep, Intermittent explosive disor jocelyn F63.81 ; Bipolar disorder F31.9 and Attention deficit hyperactivity disorder F90.9 [facility] [address] [id number] [address] [place] [address] Aug, [facility] [address] [id number] [address] [place] [address] Aug, [facility] [address] [id number] [address] [place] [address] Aug, [facility] [address] [id number] [address] [place] [address] Aug, Attention deficit hyperactiv ity disorder F90.9 [facility] [address] [id number] [address] [place] [phone] Jul, [facility] [address] [id number] [address] [place] [phone] Jun, [facility] [address] [id number] [address] [place] [address] May, [facility] [address] [id number] [address] [place] [address] Apr, [facility] [address] [id number] [address] [place] [phone] Apr, Bipolar disorder F31.9 ; Att ention deficit hyperactivity disorder F90.9 and Intermittent explosive disorder F63.81 [facility] [address] [id number] [address] [place] [phone] March, [facility] [address] [id number] [address] [place] [address] Feb, [facility] [address] [id number] [address] [place] [address] Feb, [facility] [address] [id number] [address] [place] [address] Jan, [facility] [address] [id number] [address] [place] [phone] Jan, [facility] [address] [facility] [id number] [address] [place] [address] Dec, [facility] [address] [facility] [id number] [address] [place] [address] Nov, [facility] [address] [facility] [id number] [address] [place] [phone] Nov, [facility] [address] [place] [id number] [address] [place] [address] Nov, Attention deficit hyperactiv ity disorder F90.9 ; Intermittent explosive disorder F63.81 and Bipolar disorder F31.9 [facility] [address] [facility] [id number] [address] [place] [phone] Oct, [facility] [address] [place] [id number] [address] [place] [address] Oct, [facility] [address] [place] [id number] [address] [place] [address] Sep, [facility] [address] [place] [id number] [address] [place] [address] Aug, [facility] [address] [place] [id number] [address] [place] [phone] Jul, [facility] [address] [facility] [id number] [address] [place] [address] Jul, [facility] [address] [place] [id number] [address] [place] [address] Jul, Anxiety, generalized 300.02 ; Bipolar disorder, unspecified 296.80 ; 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.00 ; 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 and Impulse control disorder, unspecified 312.30 [facility] [address] [facility] [id number] [address] [place] [address] Jul, [facility] [address] [place] [id number] [address] [place] [phone] Jun, [facility] [address] [id number] [address] [place] [address] May, [facility] [address] [id number] [address] [place] [address] Apr, [facility] [address] [id number] [address] [place] [address] Apr, Bipolar disorder, unspecifie d 296.80 ; Generalized anxiety disorder 300.02 and 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.00 [facility] [address] [id number] [address] [place] [address] Apr, [facility] [address] [id number] [address] [place] [address] March, [facility] [address] [id number] [address] [place] [address] March, [facility] [address] [id number] [address] [place] [address] March, [facility] [address] [id number] [address] [place] [address] March, [facility] [address] [id number] [address] [place] [address] Feb, [facility] [address] [id number] [address] [place] [phone] Feb, [facility] [address] [id number] [address] [place] [address] Jan, [facility] [address] [id number] [address] [place] [address] Jan, [facility] [address] [id number] [address] [place] [phone] Jan, [facility] [address] [id number] [address] [place] [address] Jan, [facility] [address] [id number] [address] [place] [address] Jan, [facility] [address] [id number] [address] [place] [address], [place] [address] Dec, [facility] [address] [id number] [address] [place] [address], [place] [address] Dec, [facility] [address] [id number] [address] [place] [address], [place] [address] Nov, [facility] [address] [id number] [address] [place] [address], [place] [address] Nov, [facility] [address] [id number] [address] [place] [address], [place] [address] Nov, [facility] [address] [id number] [address] [place] [address], [place] [address] Oct, [facility] [address] [id number] [address] [place] [address], [place] [address] Oct, [facility] [address] [id number] [address] [place] [address], [place] [address] Oct, [facility] [address] [id number] [address] [place] [address], [place] [address] Oct, [facility] [address] [id number] [address] [place] [address], [place] [address] Oct, [facility] [address] [id number] [address] [place] [address], [place] [address] Oct, [facility] [address] [id number] [address] [place] [address] Sep, [facility] [address] [id number] [address] [place] [address], [place] [address] Sep, [facility] [address] [id number] [address] [place] [address], [place] [address] Sep, [facility] [address] [id number] [address] [place] [address], [place] [address] Aug, [facility] [address] [id number] [address] [place] [address], [place] [address] Aug, [facility] [address] [id number] [address] [place] [address], [place] [address] Jul, [facility] [address] [id number] [address] [place] [address], [place] [address] Jul, [facility] [address] [id number] [address] [place] [address], [place] [address] Jun, [facility] [address] [id number] [address] [place] [address], [place] [address] Jun, [facility] [address] [id number] [address] [place] [address], [place] [address] Jun, [facility] [address] [id number] [address] [place] [address], [place] [address] Jun, [facility] [address] [id number] [address] [place] [address], [place] [address] May, [facility] [address] [id number] [address] [place] [address], [place] [address] May, [facility] [address] [id number] [address] [place] [address], [place] [address] May, [facility] [address] [id number] [address] [place] [address], [place] [address] Apr, [facility] [address] [id number] [address] [place] [address], [place] [address] Apr, [facility] [address] [id number] [address] [place] [address], [place] [address] Apr, [facility] [address] [id number] [address] [place] [address], [place] [address] Apr, [facility] [address] [id number] [address] [place] [address], [place] [address] March, [facility] [address] [id number] [address] [place] [address], [place] [address] March, [facility] [address] [id number] [address] [place] [address], [place] [address] March, [facility] [address] [id number] [address] [place] [address], [place] [address] March, [facility] [address] [id number] [address] [place] [address], [place] [address] Feb, [facility] [address] [id number] [address] [place] [address], [place] [address] Feb, [facility] [address] [id number] [address] [place] [address], [place] [address] Jan, [facility] [address] [id number] [address] [place] [address], [place] [address] Jan, [facility] [address] [id number] [address] [place] [address], [place] [address] Jan, [facility] [address] [id number] [address] [place] [address], [place] [address] Jan, [facility] [address] [id number] [address] [place] [address], [place] [address] Jan, [facility] [address] [id number] [address] [place] [address], [place] [address] Jan, [facility] [address] [id number] [address] [place] [address], [place] [address] Jan, [facility] [address] [id number] [address] [place] [address], [place] [address] Jan, [facility] [address] [id number] [address] [place] [address], [place] [address] Dec, [facility] [address] [id number] [address] [place] [address], [place] [address] Dec, [facility] [address] [id number] [address] [place] [address], [place] [address] Dec, [facility] [address] [id number] [address] [place] [address] Dec, [facility] [address] [id number] [address] [place] [address], [place] [address] Nov, [facility] [address] [id number] [address] [place] [id number] Nov, [facility] [address] [id number] [address] [place] [address], [place] [address] Oct, [facility] [address] [id number] [address] [place] [address], [place] [address] Oct, [facility] [address] [id number] [address] [place] [address], [place] [address] Oct, [facility] [address] [id number] [address] [place] [address], [place] [address] Oct, [facility] [address] [id number] [address] [place] [id number] Sep, [facility] [address] [id number] [address] [place] [address], [place] [address] Sep, [facility] [address] [id number] [address] [place] [address], [place] [address] Sep, [facility] [address] [id number] [address] [place] [id number] Sep, [facility] [address] [id number] [address] [place] [id number] Aug, [facility] [address] [id number] [address] [place] [id number] Aug, [facility] [address] [id number] [address] [place] [id number] 07 Aug, 2013 [facility] [address] [id number] [address] [place] [id number] 12 Jul, 2013 [facility] [address] [id number] [address] [place] [id number] 11 Jul, 2013 [facility] [address] [id number] [address] [place] [address], [place] [address] Jun, [facility] [address] [id number] [address] [place] [address], [place] [address] Jun, [facility] [address] [id number] [address] [place] [address], [place] [address] May, [facility] [address] [id number] [address] [place] [address], [place] [address] May, [facility] [address] [id number] [address] [place] [address], [place] [address] Apr, [facility] [address] [id number] [address] [place] [address], [place] [address] March, [facility] [address] [id number] [address] [place] [address], [place] [address] March, [facility] [address] [id number] [address] [place] [address], [place] [address] Feb, [facility] [address] [id number] [address] [place] [address], [place] [address] Jan, [facility] [address] [id number] [address] [place] [address], [place] [address] Jan, [facility] [address] [id number] [address] [place] [address], [place] [address] Dec, [facility] [address] [id number] [address] [place] [address], [place] [address] Dec, [facility] [address] [id number] [address] [place] [address], [place] [address] Nov, [facility] [address] [id number] [address] [place] [address], [place] [address] Nov, [facility] [address] [id number] [address] [place] [address], [place] [address] Nov, [facility] [address] [id number] [address] [place] [address], [place] [address] 16 Nov, 2012 [facility] [address] [id number] [address] [place] [address], [place] [address] Nov, [facility] [address] [id number] [address] [place] [address], [place] [address] Oct, [facility] [address] [id number] [address] [place] [address], [place] [address] Oct, [facility] [address] [id number] [address] [place] [address], [place] [address] Oct, [facility] [address] [id number] [address] [place] [address], [place] [address] Oct, [facility] [address] [id number] [address] [place] [address], [place] [address] Oct, [facility] [address] [id number] [address] [place] [address], [place] [address] Oct, [facility] [address] [id number] [address] [place] [address], [place] [address] Oct, [facility] [address] [id number] [address] [place] [address], [place] [address] Oct, [facility] [address] [id number] [address] [place] [address], [place] [address] Sep, [facility] [address] [id number] [address] [place] [address], [place] [address] Sep, [facility] [address] [id number] [address] [place] [address], [place] [address] Sep, [facility] [address] [id number] [address] [place] [address], [place] [address] Aug, [facility] [address] [id number] [address] [place] [address], [place] [address] 17 Aug, 2012 [facility] [address] [id number] [address] [place] [address], [place] [address] Aug, [facility] [address] [id number] [address] [place] [address], [place] [address] Aug, [facility] [address] [id number] [address] [place] [address], [place] [address] Aug, [facility] [address] [id number] [address] [place] [address], [place] [address] Jul, [facility] [address] [id number] [address] [place] [address], [place] [address] Jul, [facility] [address] [id number] [address] [place] [address], [place] [address] Jun, [facility] [address] [id number] [address] [place] [address], [place] [address] May, [facility] [address] [id number] [address] [place] [address], [place] [address] May, [facility] [address] [id number] [address] [place] [address], [place] [address] Apr, [facility] [address] [id number] [address] [place] [address], [place] [address] March, [facility] [address] [id number] [address] [place] [address], [place] [address] March, [facility] [address] [id number] [address] [place] [address], [place] [address] March, [facility] [address] [id number] [address] [place] [address], [place] [address] March, [facility] [address] [id number] [address] [place] [address], [place] [address] Feb, [facility] [address] [id number] [address] [place] [address], [place] [address] Feb, [facility] [address] [id number] [address] [place] [address], [place] [address] Jan, [facility] [address] [id number] [address] [place] [address], [place] [address] Dec, [facility] [address] [id number] [address] [place] [address] Dec, [facility] [address] [id number] [address] [place] [address] Dec, [facility] [address] [id number] [address] [place] [address] Nov, [facility] [address] [id number] [address] [place] [address] Nov, [facility] [address] [id number] [address] [place] [address] Nov, [facility] [address] [id number] [address] [place] [address] Oct, [facility] [address] [id number] [address] [place] [address] Sep, [facility] [address] [id number] [address] [place] [address] Aug, [facility] [address] [id number] [address] [place] [address] Aug, [facility] [address] [id number] [address] [place] [address] May, [facility] [address] [id number] [address] [place] [address] Sep, [facility] [address] [id number] [address] [place] [address] Sep, IMMUNIZATIONS No Known Immunizations SOCIAL HISTORY Never Assessed REASON FOR VISIT PLAN OF CARE Activity Details Follow Up 3 Months Reason:on site reca ll VITAL SIGNS MEDICATIONS Medication Instructions Dosage Frequency Start Date End Date Duration S tatus Oxcarbazepine 300 MG Orally Twice a day 1 tablet 12h 30 day(s) Active Quetiapine Fumarate 50 MG Orally Once a day 1 tablet 24h 30 day(s) Active Trileptal 300 mg Orally 3 times a day 1 tablet 8h Not-Taking Tylenol 325 mg Orally every 4 hrs, not to exceed 10 in 24 hours 1-2 tablets as needed Sep, Not-Taking Seroquel 50 MG Orally at night 1 tablet 30 days Not-Taking Tums 500 MG Orally as needed for heartburn, not to e xceed 10 in 24 hours 1-2 tablets Sep, 30 day(s) Not-Taking Vyvanse 70 MG Orally Once a day 1 capsule in the morning 24h Sep, Active Fluvoxamine Maleate 100 mg TAKE THREE TABLETS BY MOUTH EVERY NIGHT AT BEDTIME Active Clonidine HCl 0.1 MG TAKE ONE TABLET BY MOUTH EVERY MORNING, TAKE TWO TABLETS AT 2:OO PM, AND TAKE ONE TABLET EVERY NIGHT AT BEDTIME Active Rozerem 8 mg TAKE ONE TABLET BY MOUTH EVERY NIGHT AT BEDTIME Active RESULTS No Results PROCEDURES Procedure Date Ordered Result Body Site PROPHYLAXIS - ADULT Oct 24, 2018 INTERIM CARIES ARRESTING MED APPLIC Oct 24, 2018 TOPICAL FLUORIDE VARNISH Oct 24, 2018 INSTRUCTIONS MEDICATIONS ADMINISTERED No Known Medications MEDICAL (GENERAL) HISTORY Type Description Date Medical History bipolar Medical History adhd Medical History anxiety Surgical History No Surgical history information
--- OUTSIDE RECORDS SUMMARY | 2020-03-18 15:32 | XMS REPORT ---
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 Name Role Phone LIZETANGIE ANAYAYLA Unavailable PROBLEMS Type Condition ICD9-CM Code [id number] Code Onset Dates Condition S tatus SNOMED Code Problem Bipolar disorder, unspecified 296.80 Active 77093361 Problem Bipolar disorder F31.9 Active 137 20059 Problem Bipolar I disorder, most recent episode (or current) mixed, moderate 296.62 Active 207115837 Problem Encounter for long-term (current) use of other medications V58.69 Active 187211657 Problem 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 Ac tive 48243194 Problem 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 314.00 Active 39157495 Problem Generalized anxiety disorder 300.02 A ctive 47261633 Problem Attention-deficit hyperactiv ity disorder, predominantly inattentive type F90.0 Active 12837059 Problem Intellectual disability F79 Active 02956120 Problem Attention deficit hyperactivity disorder F90.9 Active 665200579 Problem Intermittent explosive disorder F63.81 Active 38544974 Problem Moderate intellectual disability F71 Active 80209451 Problem Bipolar disorder, currently in remission, most recent episode unspecified F31.70 Active 55580564 ALLERGIES No Information ENCOUNTERS Encounter Location Date Diagnosis [facility] [address] [facility] [id number] [address] [place] [phone] Oct, [facility] [address] [facility] [id number] [address] [place] [phone] Oct, [facility] [address] [facility] [id number] [address] [place] [address] Sep, Bipolar disorder, currently in remission, most recent episode unspecified F31.70 [facility] [address] [id number] [address] [place] [id number] Sep, 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 stat us requiring routine preventive dental care K08.9 and Arrested dental caries K02.3 [facility] [address] [id number] [address] [place] [address] Sep, Bipolar disorder, currently in remission, most recent episode unspecified F31.70 ; Moderate intellectual disability F71 and Attention-deficit hyperactivity disorder, predominantly inattentive type F90.0 [facility] [address] [id number] [address] [place] [address] Sep, Bipolar disorder, currently in remission, most recent episode unspecified F31.70 [facility] [address] [id number] [address] [place] [address] Aug, Bipolar disorder, currently in remission, most recent episode unspecified F31.70 [facility] [address] [id number] [address] [place] [address] Jul, Bipolar disorder, currently in remission, most recent episode unspecified F31.70 [facility] [address] [id number] [address] [place] [address] Jul, Bipolar disorder, currently in remission, most recent episode unspecified F31.70 [facility] [address] [id number] [address] [place] [address] Jun, [facility] [address] [id number] [address] [place] [address] Jun, Bipolar disorder, currently in remission, most recent episode unspecified F31.70 [facility] [address] [id number] [address] [place] [id number] Jun, Dental examination Z01.20 an d Dental caries K02.9 [facility] [address] [id number] [address] [place] [address] May, Bipolar disorder, currently in remission, most recent episode unspecified F31.70 [facility] [address] [id number] [address] [place] [address] May, Bipolar disorder, currently in remission, most recent episode unspecified F31.70 [facility] [address] [id number] [address] [place] [address] May, Bipolar disorder, currently in remission, most recent episode unspecified F31.70 ; Moderate intellectual disability F71 and Attention-deficit hyperactivity disorder, predominantly inattentive type F90.0 [facility] [address] [id number] [address] [place] [address] Apr, Bipolar disorder, unspecifie d F31.9 [facility] [address] [id number] [address] [place] [address] Apr, [facility] [address] [id number] [address] [place] [address] Apr, [facility] [address] [id number] [address] [place] [address] Apr, [facility] [address] [id number] [address] [place] [address] March, [facility] [address] [id number] [address] [place] [address] March, Bipolar disorder, currently in remission, most recent episode unspecified F31.70 ; Moderate intellectual disability 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 and Attention-deficit hyperactivity disorder, predominantly inattentive type F90.0 [facility] [address] [id number] [address] [place] [address] Feb, [facility] [address] [id number] [address] [place] [address] [id number] Feb, Dental examination Z01.20 [facility] [address] [id number] [address] [place] [phone] Jan, [facility] [address] [id number] [address] [place] [address] Jan, [facility] [address] [id number] [address] [place] [address] Dec, [facility] [address] [id number] [address] [place] [address] Nov, [facility] [address] [id number] [address] [place] [id number] Nov, Encounter for dental exam an d cleaning w/o abnormal findings Z01.20 [facility] [address] [id number] [address] [place] [address] [id number] Nov, Dental examination Z01.20 [facility] [address] [id number] [address] [place] [phone] Oct, [facility] [address] [id number] [address] [place] [address] Oct, Bipolar disorder, currently in remission, most recent episode unspecified F31.70 ; Moderate intellectual disability F71 and Attention-deficit hyperactivity disorder, predominantly inattentive type F90.0 [facility] [address] [id number] [address] [place] [address] Sep, [facility] [address] [id number] [address] [place] [phone] Sep, [facility] [address] [id number] [address] [place] [address] Aug, [facility] [address] [id number] [address] [place] [address] Aug, Attention-deficit hyperactiv ity disorder, predominantly inattentive type F90.0 ; Moderate intellectual disability 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 and Bipolar disorder F31.9 [facility] [address] [id number] [address] [place] [id number] Jul, Dental examination Z01.20 an d Dental caries K02.9 [facility] [address] [id number] [address] [place] [address] Jul, [facility] [address] [id number] [address] [place] [address] Jun, Bipolar disorder F31.9 ; Att ention-deficit hyperactivity disorder, predominantly inattentive type F90.0 and Moderate intellectual disability F71 [facility] [address] [id number] [address] [place] [address] Jun, [facility] [address] [id number] [address] [place] [phone] May, [facility] [address] [id number] [address] [place] [address] 16 Apr, 2017 [facility] [address] [facility] [id number] [address] [place] [address] March, Intermittent explosive disor jocelyn F63.81 ; Attention deficit hyperactivity disorder F90.9 and Bipolar disorder F31.9 [facility] [address] [id number] [address] [place] [address] Feb, [facility] [address] [facility] [id number] [address] [place] [id number] Jan, [facility] [address] [facility] [id number] [address] [place] [phone] 13 Dec, 2016 Encounter for immunization Z 23 [facility] [address] [facility] [id number] [address] [place] [address] 13 Dec, 2016 Intermittent explosive disor jocelyn F63.81 ; Attention deficit hyperactivity disorder F90.9 and Bipolar disorder, currently in remission, most recent episode unspecified F31.70 [facility] [address] [facility] [id number] [address] [place] [address] Nov, [facility] [address] [facility] [id number] [address] [place] [address] Oct, [facility] [address] [facility] [id number] [address] [place] [phone] Oct, [facility] [address] [id number] [address] [place] [address] [id number] Oct, Dental examination Z01.20 [facility] [address] [facility] [id number] [address] [place] [phone] Sep, [facility] [address] [facility] [id number] [address] [place] [address] Sep, [facility] [address] [id number] [address] [place] [address] Sep, Intermittent explosive disor jocelyn F63.81 ; Bipolar disorder F31.9 and Attention deficit hyperactivity disorder F90.9 [facility] [address] [id number] [address] [place] [phone] Aug, [facility] [address] [id number] [address] [place] [address] Aug, [facility] [address] [id number] [address] [place] [phone] Aug, [facility] [address] [id number] [address] [place] [address] Aug, Attention deficit hyperactiv ity disorder F90.9 [facility] [address] [id number] [address] [place] [phone] Jul, [facility] [address] [id number] [address] [place] [phone] Jun, [facility] [address] [id number] [address] [place] [phone] May, [facility] [address] [id number] [address] [place] [address] Apr, [facility] [address] [id number] [address] [place] [address] Apr, Bipolar disorder F31.9 ; Att ention deficit hyperactivity disorder F90.9 and Intermittent explosive disorder F63.81 [facility] [address] [id number] [address] [place] [phone] March, [facility] [address] [id number] [address] [place] [id number] Feb, [facility] [address] [id number] [address] [place] [phone] Feb, [facility] [address] [id number] [address] [place] [address] Jan, [facility] [address] [facility] [id number] [address] [place] [address] Jan, [facility] [address] [facility] [id number] [address] [place] [address] Dec, [facility] [address] [id number] [address] [place] [address] Nov, [facility] [address] [id number] [address] [place] [phone] Nov, [facility] [address] [id number] [address] [place] [address] Nov, Attention deficit hyperactiv ity disorder F90.9 ; Intermittent explosive disorder F63.81 and Bipolar disorder F31.9 [facility] [address] [id number] [address] [place] [address] Oct, [facility] [address] [place] [id number] [address] [place] [phone] Oct, [facility] [address] [id number] [address] [place] [address] Sep, [facility] [address] [place] [id number] [address] [place] [address] Aug, [facility] [address] [id number] [address] [place] [id number] Jul, [facility] [address] [id number] [address] [place] [phone] Jul, [facility] [address] [id number] [address] [place] [address] Jul, Anxiety, generalized 300.02 ; Bipolar disorder, unspecified 296.80 ; 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.00 ; 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 and Impulse control disorder, unspecified 312.30 [facility] [address] [place] [id number] [address] [place] [phone] Jul, [facility] [address] [id number] [address] [place] [phone] Jun, [facility] [address] [id number] [address] [place] [phone] May, [facility] [address] [id number] [address] [place] [address] Apr, [facility] [address] [id number] [address] [place] [phone] Apr, Bipolar disorder, unspecifie d 296.80 ; Generalized anxiety disorder 300.02 and 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.00 [facility] [address] [id number] [address] [place] [address] Apr, [facility] [address] [id number] [address] [place] [address] March, [facility] [address] [id number] [address] [place] [address] March, [facility] [address] [id number] [address] [place] [address] March, [facility] [address] [id number] [address] [place] [address] March, [facility] [address] [id number] [address] [place] [phone] Feb, [facility] [address] [id number] [address] [place] [address] Feb, [facility] [address] [id number] [address] [place] [address] Jan, [facility] [address] [id number] [address] [place] [phone] Jan, [facility] [address] [id number] [address] [place] [address] Jan, [facility] [address] [id number] [address] [place] [address], [place] [address] Jan, [facility] [address] [id number] [address] [place] [address], [place] [address] Jan, [facility] [address] [id number] [address] [place] [address], [place] [address] Dec, [facility] [address] [id number] [address] [place] [address], [place] [address] Dec, [facility] [address] [id number] [address] [place] [address], [place] [address] Nov, [facility] [address] [id number] [address] [place] [address], [place] [address] Nov, [facility] [address] [id number] [address] [place] [address], [place] [address] Nov, [facility] [address] [id number] [address] [place] [address], [place] [address] Oct, [facility] [address] [id number] [address] [place] [address], [place] [address] Oct, [facility] [address] [id number] [address] [place] [address], [place] [address] Oct, [facility] [address] [id number] [address] [place] [address], [place] [address] Oct, [facility] [address] [id number] [address] [place] [address], [place] [address] Oct, [facility] [address] [id number] [address] [place] [address], [place] [address] Oct, [facility] [address] [id number] [address] [place] [address], [place] [address] Sep, [facility] [address] [id number] [address] [place] [address], [place] [address] Sep, [facility] [address] [id number] [address] [place] [address], [place] [address] Sep, [facility] [address] [id number] [address] [place] [address], [place] [address] Aug, [facility] [address] [id number] [address] [place] [address], [place] [address] Aug, [facility] [address] [id number] [address] [place] [address], [place] [address] Jul, [facility] [address] [id number] [address] [place] [address], [place] [address] Jul, [facility] [address] [id number] [address] [place] [address], [place] [address] Jun, [facility] [address] [id number] [address] [place] [address], [place] [address] Jun, [facility] [address] [id number] [address] [place] [address], [place] [address] Jun, [facility] [address] [id number] [address] [place] [address], [place] [address] Jun, [facility] [address] [id number] [address] [place] [address], [place] [address] May, [facility] [address] [id number] [address] [place] [address], [place] [address] May, [facility] [address] [id number] [address] [place] [address], [place] [address] May, [facility] [address] [id number] [address] [place] [address], [place] [address] Apr, [facility] [address] [id number] [address] [place] [address], [place] [address] Apr, [facility] [address] [id number] [address] [place] [address], [place] [address] Apr, [facility] [address] [id number] [address] [place] [address], [place] [address] Apr, [facility] [address] [id number] [address] [place] [address], [place] [address] March, [facility] [address] [id number] [address] [place] [address], [place] [address] March, [facility] [address] [id number] [address] [place] [address], [place] [address] March, [facility] [address] [id number] [address] [place] [address], [place] [address] March, [facility] [address] [id number] [address] [place] [address], [place] [address] Feb, [facility] [address] [id number] [address] [place] [address], [place] [address] Feb, [facility] [address] [id number] [address] [place] [address], [place] [address] Jan, [facility] [address] [id number] [address] [place] [address], [place] [address] Jan, [facility] [address] [id number] [address] [place] [address], [place] [address] Jan, [facility] [address] [id number] [address] [place] [address], [place] [address] Jan, [facility] [address] [id number] [address] [place] [address], [place] [address] Jan, [facility] [address] [id number] [address] [place] [address], [place] [address] Jan, [facility] [address] [id number] [address] [place] [address], [place] [address] Jan, [facility] [address] [id number] [address] [place] [address], [place] [address] Jan, [facility] [address] [id number] [address] [place] [address], [place] [address] Dec, [facility] [address] [id number] [address] [place] [address], [place] [address] Dec, [facility] [address] [id number] [address] [place] [address], [place] [address] Dec, [facility] [address] [id number] [address] [place] [address], [place] [address] Dec, [facility] [address] [id number] [address] [place] [address], [place] [id number] Nov, [facility] [address] [id number] [address] [place] [address], [place] [address] Nov, [facility] [address] [id number] [address] [place] [address], [place] [address] Oct, [facility] [address] [id number] [address] [place] [address], [place] [id number] Oct, [facility] [address] [id number] [address] [place] [address], [place] [id number] Oct, [facility] [address] [id number] [address] [place] [address], [place] [id number] Oct, [facility] [address] [id number] [address] [place] [address], [place] [id number] Sep, [facility] [address] [id number] [address] [place] [address], [place] [id number] Sep, [facility] [address] [id number] [address] [place] [address], [place] [id number] Sep, [facility] [address] [id number] [address] [place] [address], [place] [id number] Sep, [facility] [address] [id number] [address] [place] [address], [place] [address] Aug, [facility] [address] [id number] [address] [place] [address], [place] [id number] Aug, [facility] [address] [id number] [address] [place] [address], [place] [id number] Aug, [facility] [address] [id number] [address] [place] [address], [place] [id number] Jul, [facility] [address] [id number] [address] [place] [address], [place] [address] Jul, [facility] [address] [id number] [address] [place] [address], [place] [id number] Jun, [facility] [address] [id number] [address] [place] [address], [place] [id number] Jun, [facility] [address] [id number] [address] [place] [address], [place] [address] May, [facility] [address] [id number] [address] [place] [address], [place] [address] May, [facility] [address] [id number] [address] [place] [address], [place] [address] Apr, [facility] [facility] [address] [id number] [address] [place] [address], [place] [id number] March, [facility] [address] [id number] [address] [place] [address], [place] [address] March, [facility] [address] [id number] [address] [place] [address], [place] [id number] Feb, [facility] [address] [id number] [address] [place] [address], [place] [address] Jan, [facility] [address] [id number] [address] [place] [address], [place] [address] Jan, [facility] [address] [id number] [address] [place] [address], [place] [id number] Dec, [facility] [address] [id number] [address] [place] [address], [place] [address] Dec, [facility] [address] [id number] [address] [place] [address], [place] [address] Nov, [facility] [address] [id number] [address] [place] [address], [place] [address] Nov, [facility] [address] [id number] [address] [place] [address], [place] [id number] 24 Nov, 2012 [facility] [address] [id number] [address] [place] [address], [place] [address] Nov, [facility] [address] [id number] [address] [place] [address], [place] [address] Nov, [facility] [address] [id number] [address] [place] [address], [place] [address] Oct, [facility] [address] [id number] [address] [place] [address], [place] [address] Oct, [facility] [address] [id number] [address] [place] [address], [place] [address] Oct, [facility] [address] [id number] [address] [place] [address], [place] [address] Oct, [facility] [address] [id number] [address] [place] [address], [place] [address] Oct, [facility] [address] [id number] [address] [place] [address], [place] [address] Oct, [facility] [address] [id number] [address] [place] [address], [place] [id number] 05 Oct, 2012 [facility] [address] [id number] [address] [place] [address], [place] [address] Oct, [facility] [address] [id number] [address] [place] [address], [place] [address] Sep, [facility] [address] [id number] [address] [place] [address], [place] [address] Sep, [facility] [address] [id number] [address] [place] [address], [place] [address] Sep, [facility] [address] [id number] [address] [place] [address], [place] [address] Aug, [facility] [address] [id number] [address] [place] [address], [place] [address] Aug, [facility] [address] [id number] [address] [place] [address], [place] [address] Aug, [facility] [address] [id number] [address] [place] [address], [place] [address] Aug, [facility] [address] [id number] [address] [place] [address], [place] [address] Aug, [facility] [address] [id number] [address] [place] [address], [place] [address] Jul, [facility] [address] [id number] [address] [place] [address], [place] [address] Jul, [facility] [address] [id number] [address] [place] [address], [place] [address] Jun, [facility] [address] [id number] [address] [place] [address], [place] [address] May, [facility] [address] [id number] [address] [place] [address], [place] [address] May, [facility] [address] [id number] [address] [place] [address], [place] [address] Apr, [facility] [address] [id number] [address] [place] [address], [place] [address] March, [facility] [address] [id number] [address] [place] [address], [place] [address] March, [facility] [address] [id number] [address] [place] [address], [place] [address] March, [facility] [address] [id number] [address] [place] [address], [place] [address] March, [facility] [address] [id number] [address] [place] [address], [place] [address] Feb, [facility] [address] [id number] [address] [place] [address], [place] [address] Feb, [facility] [address] [id number] [address] [place] [address] Jan, [facility] [address] [id number] [address] [place] [address] Dec, [facility] [address] [id number] [address] [place] [address] Dec, [facility] [address] [id number] [address] [place] [id number] Dec, [facility] [address] [id number] [address] [place] [address] Nov, [facility] [address] [id number] [address] [place] [id number] Nov, [facility] [address] [id number] [address] [place] [id number] Nov, [facility] [address] [id number] [address] [place] [address] Oct, [facility] [address] [id number] [address] [place] [id number] Sep, [facility] [address] [id number] [address] [place] [address] Aug, [facility] [address] [id number] [address] [place] [id number] Aug, [facility] [address] [id number] [address] [place] [id number] May, [facility] [address] [id number] [address] [place] [address] Sep, [facility] [address] [id number] [address] [place] [id number] Sep, IMMUNIZATIONS No Known Immunizations SOCIAL HISTORY Never Assessed REASON FOR VISIT vyvanse 11/02/2018 PLAN OF CARE VITAL SIGNS MEDICATIONS Medication Instructions Dosage Frequency Start Date End Date Duration S khoaus Vyvanse 70 MG Orally Once a day 1 capsule in the morning 24h Oct, 28 days Active RESULTS No Results PROCEDURES No Known procedures INSTRUCTIONS MEDICATIONS ADMINISTERED No Known Medications MEDICAL (GENERAL) HISTORY Type Description Date Medical History bipolar Medical History adhd Medical History anxiety Surgical History No Surgical history information
--- OUTSIDE RECORDS SUMMARY | 2020-03-18 15:33 | XMS REPORT ---
Author Author Jose Cruz FELDMAN CARLOS Organization [facility] Address [address] [place] [address] Care Team Providers Care Transcripter Name Role Phone LIZETANGIE ANAYAYLA Unavailable PROBLEMS Type Condition ICD9-CM Code QYB23-LY Code Onset Dates Condition S tatus SNOMED Code Problem Bipolar disorder, unspecified 296.80 Active 76591142 Problem Bipolar disorder F31.9 Active 137 92976 Problem Bipolar I disorder, most recent episode (or current) mixed, moderate 296.62 Active 449270696 Problem Encounter for long-term (current) use of other medications V58.69 Active 142716168 Problem 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 Ac tive 90418635 Problem 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 314.00 Active 68792416 Problem Generalized anxiety disorder 300.02 A ctive 67132021 Problem Attention-deficit hyperactiv ity disorder, predominantly inattentive type F90.0 Active 00330420 Problem Intellectual disability F79 Active 36306665 Problem Attention deficit hyperactivity disorder F90.9 Active 507759316 Problem Intermittent explosive disorder F63.81 Active 07954414 Problem Moderate intellectual disability F71 Active 64073365 Problem Bipolar disorder, currently in remission, most recent episode unspecified F31.70 Active 53585142 ALLERGIES No Information ENCOUNTERS Encounter Location Date Diagnosis [facility] [address] [facility] [id number] [address] [place] [id number] Jun, [facility] [address] [facility] [id number] [address] [place] [id number] Jun, Bipolar disorder, currently in remission, most recent episode unspecified F31.70 [facility] [address] [id number] [address] [place] [address] [id number] 08 Jun, 2018 Dental examination Z01.20 an d Dental caries K02.9 [facility] [address] [facility] [id number] [address] [place] [id number] May, Bipolar disorder, currently in remission, most recent episode unspecified F31.70 [facility] [address] [id number] [address] [place] [phone] May, Bipolar disorder, currently in remission, most recent episode unspecified F31.70 [facility] [address] [id number] [address] [place] [phone] May, Bipolar disorder, currently in remission, most recent episode unspecified F31.70 ; Moderate intellectual disability F71 and Attention-deficit hyperactivity disorder, predominantly inattentive type F90.0 [facility] [address] [id number] [address] [place] [id number] Apr, Bipolar disorder, unspecifie d F31.9 [facility] [address] [id number] [address] [place] [id number] Apr, [facility] [address] [id number] [address] [place] [id number] Apr, [facility] [address] [id number] [address] [place] [phone] Apr, [facility] [address] [id number] [address] [place] [phone] March, [facility] [address] [id number] [address] [place] [id number] March, Bipolar disorder, currently in remission, most recent episode unspecified F31.70 ; Moderate intellectual disability F71 and Attention-deficit hyperactivity disorder, predominantly inattentive type F90.0 [facility] [address] [id number] [address] [place] [id number] Feb, [facility] [address] [id number] [address] [place] [address] [id number] Feb, Dental examination Z01.20 [facility] [address] [id number] [address] [place] [phone] Jan, [facility] [address] [id number] [address] [place] [id number] Jan, [facility] [address] [id number] [address] [place] [phone] Dec, [facility] [address] [id number] [address] [place] [id number] Nov, [facility] [address] [id number] [address] [place] [address] [id number] Nov, Encounter for dental exam an d cleaning w/o abnormal findings Z01.20 [facility] [address] [id number] [address] [place] [address] [id number] Nov, Dental examination Z01.20 [facility] [address] [id number] [address] [place] [id number] Oct, [facility] [address] [id number] [address] [place] [phone] Oct, Bipolar disorder, currently in remission, most recent episode unspecified F31.70 ; Moderate intellectual disability F71 and Attention-deficit hyperactivity disorder, predominantly inattentive type F90.0 [facility] [address] [id number] [address] [place] [id number] Sep, [facility] [address] [id number] [address] [place] [id number] Sep, [facility] [address] [id number] [address] [place] [phone] Aug, [facility] [address] [id number] [address] [place] [phone] Aug, Attention-deficit hyperactiv ity disorder, predominantly inattentive type F90.0 ; Moderate intellectual disability F71 and Bipolar disorder F31.9 [facility] [address] [id number] [address] [place] [address] [id number] Jul, Dental examination Z01.20 an d Dental caries K02.9 [facility] [address] [id number] [address] [place] [id number] 05 Jul, 2017 [facility] [address] [id number] [address] [place] [id number] Jun, Bipolar disorder F31.9 ; Att ention-deficit hyperactivity disorder, predominantly inattentive type F90.0 and Moderate intellectual disability F71 [facility] [address] [id number] [address] [place] [id number] 11 Jun, 2017 [facility] [address] [facility] [id number] [address] [place] [id number] 17 May, 2017 [facility] [address] [facility] [place] [id number] [address] [place] [phone] Apr, [facility] [address] [facility] [place] [id number] [address] [place] [id number] March, Intermittent explosive disor jocelyn F63.81 ; Attention deficit hyperactivity disorder F90.9 and Bipolar disorder F31.9 [facility] [address] [id number] [address] [place] [phone] Feb, [facility] [address] [id number] [address] [place] [id number] Jan, [facility] [address] [facility] [id number] [address] [place] [id number] 13 Dec, 2016 Encounter for immunization Z 23 [facility] [address] [facility] [place] [id number] [address] [place] [id number] 13 Dec, 2016 Intermittent explosive disor jocelyn F63.81 ; Attention deficit hyperactivity disorder F90.9 and Bipolar disorder, currently in remission, most recent episode unspecified F31.70 [facility] [address] [facility] [id number] [address] [place] [id number] Nov, [facility] [address] [facility] [id number] [address] [place] [phone] Oct, [facility] [address] [facility] [id number] [address] [place] [id number] Oct, [facility] [address] [id number] [address] [place] [address] [id number] Oct, Dental examination Z01.20 [facility] [address] [id number] [address] [place] [phone] Sep, [facility] [address] [facility] [id number] [address] [place] [phone] Sep, [facility] [address] [facility] [place] [id number] [address] [place] [id number] Sep, Intermittent explosive disor jocelyn F63.81 ; Bipolar disorder F31.9 and Attention deficit hyperactivity disorder F90.9 [facility] [address] [id number] [address] [place] [phone] Aug, [facility] [address] [facility] [id number] [address] [place] [phone] Aug, [facility] [address] [facility] [id number] [address] [place] [phone] Aug, [facility] [address] [facility] [id number] [address] [place] [phone] Aug, Attention deficit hyperactiv ity disorder F90.9 [facility] [address] [id number] [address] [place] [id number] Jul, [facility] [address] [facility] [id number] [address] [place] [id number] Jun, [facility] [address] [facility] [id number] [address] [place] [phone] May, [facility] [address] [id number] [address] [place] [phone] Apr, [facility] [address] [facility] [id number] [address] [place] [phone] Apr, Bipolar disorder F31.9 ; Att ention deficit hyperactivity disorder F90.9 and Intermittent explosive disorder F63.81 [facility] [address] [facility] [id number] [address] [place] [phone] March, [facility] [address] [id number] [address] [place] [phone] Feb, [facility] [address] [id number] [address] [place] [phone] Feb, [facility] [address] [id number] [address] [place] [phone] Jan, [facility] [address] [id number] [address] [place] [phone] Jan, [facility] [address] [id number] [address] [place] [phone] Dec, [facility] [address] [id number] [address] [place] [id number] Nov, [facility] [address] [facility] [id number] [address] [place] [phone] Nov, [facility] [address] [id number] [address] [place] [id number] Nov, Attention deficit hyperactiv ity disorder F90.9 ; Intermittent explosive disorder F63.81 and Bipolar disorder F31.9 [facility] [address] [id number] [address] [place] [id number] Oct, [facility] [address] [facility] [id number] [address] [place] [phone] Oct, [facility] [address] [id number] [address] [place] [id number] Sep, [facility] [address] [id number] [address] [place] [phone] Aug, [facility] [address] [id number] [address] [place] [id number] Jul, [facility] [address] [id number] [address] [place] [phone] Jul, [facility] [address] [id number] [address] [place] [id number] Jul, Anxiety, generalized 300.02 ; Bipolar disorder, unspecified 296.80 ; 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.00 ; 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 and Impulse control disorder, unspecified 312.30 [facility] [address] [id number] [address] [place] [id number] Jul, [facility] [address] [id number] [address] [place] [id number] Jun, [facility] [address] [id number] [address] [place] [phone] May, [facility] [address] [id number] [address] [place] [phone] Apr, [facility] [address] [id number] [address] [place] [id number] Apr, Bipolar disorder, unspecifie d 296.80 ; Generalized anxiety disorder 300.02 and 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.00 [facility] [address] [id number] [address] [place] [phone] Apr, [facility] [address] [id number] [address] [place] [id number] March, [facility] [address] [id number] [address] [place] [id number] March, [facility] [address] [id number] [address] [place] [phone] March, [facility] [address] [id number] [address] [place] [id number] March, [facility] [address] [id number] [address] [place] [phone] Feb, [facility] [address] [id number] [address] [place] [phone] Feb, [facility] [address] [id number] [address] [place] [phone] Jan, [facility] [address] [id number] [address] [place] [address], [place] [id number] Jan, 2014 [facility] [address] [id number] [address] [place] [address], [place] [id number] Jan, 2014 [facility] [address] [id number] [address] [place] [address], [place] [id number] Jan, [facility] [address] [id number] [address] [place] [address], [place] [id number] Jan, [facility] [address] [id number] [address] [place] [address], [place] [id number] Dec, [facility] [address] [id number] [address] [place] [address], [place] [address] Dec, [facility] [address] [id number] [address] [place] [address], [place] [address] Nov, [facility] [address] [id number] [address] [place] [address], [place] [address] Nov, [facility] [address] [id number] [address] [place] [address], [place] [id number] Nov, [facility] [address] [id number] [address] [place] [address], [place] [address] Oct, [facility] [address] [id number] [address] [place] [address], [place] [address] Oct, [facility] [address] [id number] [address] [place] [address], [place] [address] Oct, [facility] [address] [id number] [address] [place] [address], [place] [id number] Oct, [facility] [address] [id number] [address] [place] [address], [place] [address] Oct, [facility] [address] [id number] [address] [place] [address], [place] [address] Oct, [facility] [address] [id number] [address] [place] [address], [place] [id number] Sep, [facility] [address] [id number] [address] [place] [address], [place] [address] Sep, [facility] [address] [id number] [address] [place] [address], [place] [address] Sep, [facility] [address] [id number] [address] [place] [address], [place] [address] Aug, [facility] [address] [id number] [address] [place] [address], [place] [address] Aug, [facility] [address] [id number] [address] [place] [address], [place] [address] Jul, [facility] [address] [id number] [address] [place] [address], [place] [address] Jul, [facility] [address] [id number] [address] [place] [address], [place] [address] Jun, [facility] [address] [id number] [address] [place] [address], [place] [address] Jun, [facility] [address] [id number] [address] [place] [address], [place] [id number] Jun, [facility] [address] [id number] [address] [place] [address], [place] [address] Jun, [facility] [address] [id number] [address] [place] [address], [place] [address] May, [facility] [address] [id number] [address] [place] [address], [place] [address] May, [facility] [address] [id number] [address] [place] [address], [place] [id number] May, [facility] [address] [id number] [address] [place] [address], [place] [address] Apr, [facility] [address] [id number] [address] [place] [address], [place] [address] Apr, [facility] [address] [id number] [facility] [address] Apr, [facility] [address] [id number] [facility] [address] Apr, [facility] [address] [id number] [facility] [address] March, [facility] [address] [id number] [address] [place] [address], [place] [address] March, [facility] [address] [id number] [address] [place] [address], [place] [address] March, [facility] [address] [id number] [address] [place] [address], [place] [id number] March, [facility] [address] [id number] [address] [place] [address], [place] [address] Feb, [facility] [address] [id number] [address] [place] [address], [place] [address] Feb, [facility] [address] [id number] [address] [place] [address], [place] [id number] Jan, [facility] [address] [id number] [address] [place] [address], [place] [address] Jan, [facility] [address] [id number] [address] [place] [address], [place] [address] Jan, [facility] [address] [id number] [address] [place] [address], [place] [address] Jan, [facility] [address] [id number] [address] [place] [address], [place] [id number] Jan, [facility] [address] [id number] [address] [place] [address], [place] [address] Jan, [facility] [address] [id number] [address] [place] [address], [place] [address] Jan, [facility] [address] [id number] [address] [place] [address], [place] [address] Jan, [facility] [address] [id number] [facility] [address] Dec, [facility] [address] [id number] [address] [place] [address], [place] [id number] Dec, [facility] [address] [id number] [address] [place] [address], [place] [address] Dec, [facility] [address] [id number] [address] [place] [address], [place] [address] Dec, [facility] [address] [id number] [address] [place] [address], [place] [address] Nov, [facility] [address] [id number] [address] [place] [address], [place] [address] Nov, [facility] [address] [id number] [address] [place] [address], [place] [address] Oct, [facility] [address] [id number] [address] [place] [address], [place] [address] Oct, [facility] [address] [id number] [address] [place] [address], [place] [id number] Oct, [facility] [address] [id number] [address] [place] [address], [place] [id number] Oct, [facility] [address] [id number] [address] [place] [address], [place] [id number] Sep, [facility] [address] [id number] [address] [place] [address], [place] [id number] Sep, [facility] [address] [id number] [address] [place] [address], [place] [id number] Sep, [facility] [address] [id number] [address] [place] [address], [place] [id number] Sep, [facility] [address] [id number] [address] [place] [address], [place] [id number] Aug, [facility] [address] [id number] [address] [place] [address], [place] [id number] 10 Aug, 2013 [facility] [address] [id number] [address] [place] [address], [place] [id number] 07 Aug, 2013 [facility] [address] [id number] [address] [place] [address], [place] [id number] Jul, [facility] [address] [id number] [address] [place] [address], [place] [address] Jul, [facility] [address] [id number] [address] [place] [address], [place] [id number] Jun, [facility] [address] [id number] [address] [place] [address], [place] [id number] Jun, [facility] [address] [id number] [address] [place] [address], [place] [id number] May, [facility] [address] [id number] [address] [place] [address], [place] [id number] May, [facility] [address] [id number] [address] [place] [address], [place] [id number] Apr, [facility] [address] [id number] [address] [place] [address], [place] [id number] March, [facility] [address] [id number] [address] [place] [address], [place] [id number] March, [facility] [address] [id number] [address] [place] [address], [place] [id number] Feb, [facility] [address] [id number] [address] [place] [address], [place] [id number] Jan, [facility] [address] [id number] [address] [place] [address], [place] [id number] Jan, [facility] [address] [id number] [address] [place] [address], [place] [id number] Dec, [facility] [address] [id number] [address] [place] [address], [place] [id number] Dec, [facility] [address] [id number] [address] [place] [address], [place] [id number] Nov, [facility] [address] [id number] [address] [place] [address], [place] [id number] Nov, [facility] [address] [id number] [address] [place] [address], [place] [id number] Nov, [facility] [address] [id number] [address] [place] [address], [place] [id number] Nov, [facility] [address] [id number] [address] [place] [address], [place] [id number] Nov, [facility] [address] [id number] [address] [place] [address], [place] [address] Oct, [facility] [address] [id number] [address] [place] [address], [place] [id number] Oct, [facility] [address] [id number] [address] [place] [address], [place] [address] Oct, [facility] [address] [id number] [address] [place] [address], [place] [id number] Oct, [facility] [address] [id number] [address] [place] [address], [place] [id number] Oct, [facility] [address] [id number] [address] [place] [address], [place] [id number] Oct, [facility] [address] [id number] [address] [place] [address], [place] [address] Oct, [facility] [address] [id number] [address] [place] [address], [place] [id number] Oct, [facility] [address] [id number] [address] [place] [address], [place] [id number] Sep, [facility] [address] [id number] [address] [place] [address], [place] [address] Sep, [facility] [address] [id number] [address] [place] [address], [place] [address] Sep, [facility] [address] [id number] [address] [place] [address], [place] [address] Aug, [facility] [address] [id number] [address] [place] [address], [place] [address] Aug, [facility] [address] [id number] [address] [place] [address], [place] [address] Aug, [facility] [address] [id number] [address] [place] [address], [place] [address] Aug, [facility] [address] [id number] [address] [place] [address], [place] [id number] Aug, [facility] [address] [id number] [address] [place] [address], [place] [address] Jul, [facility] [address] [id number] [address] [place] [address], [place] [address] Jul, [facility] [address] [id number] [address] [place] [address], [place] [address] Jun, [facility] [address] [id number] [address] [place] [address], [place] [address] May, [facility] [address] [id number] [address] [place] [address], [place] [address] May, [facility] [address] [id number] [address] [place] [address], [place] [id number] Apr, [facility] [address] [id number] [address] [place] [address], [place] [address] March, [facility] [address] [id number] [address] [place] [address], [place] [address] March, [facility] [address] [id number] [address] [place] [address], [place] [id number] March, [facility] [address] [id number] [address] [place] [address], [place] [id number] March, [facility] [address] [id number] [address] [place] [address], [place] [id number] 10 Feb, 2012 [facility] [address] [id number] [address] [place] [address], [place] [id number] Feb, [facility] [address] [id number] [address] [place] [address], [place] [address] Jan, [facility] [address] [id number] [address] [place] [address], [place] [id number] 10 Dec, 2011 [facility] [address] [id number] [address] [place] [address], [place] [id number] 08 Dec, 2011 [facility] [address] [id number] [address] [place] [address], [place] [address] Dec, [facility] [address] [id number] [address] [place] [address], [place] [address] Nov, [facility] [address] [id number] [address] [place] [address], [place] [address] Nov, [facility] [address] [id number] [address] [place] [address], [place] [address] Nov, [facility] [address] [id number] [address] [place] [address], [place] [address] Oct, [facility] [address] [id number] [address] [place] [address], [place] [id number] Sep, [facility] [address] [id number] [address] [place] [address], [place] [id number] Aug, [facility] [address] [id number] [address] [place] [address], [place] [id number] Aug, [facility] [address] [id number] [address] [place] [address], [place] [id number] May, [facility] [address] [id number] [address] [place] [address], [place] [address] Sep, [facility] [address] [id number] [address] [place] [address], [place] [address] Sep, IMMUNIZATIONS No Known Immunizations SOCIAL HISTORY Never Assessed REASON FOR VISIT zyprexa PLAN OF CARE VITAL SIGNS MEDICATIONS Medication Instructions Dosage Frequency Start Date End Date Duration S rené Trileptal 300 mg Orally 3 times a day 1 tablet 8h 3 0 Active RESULTS No Results PROCEDURES No Known procedures INSTRUCTIONS MEDICATIONS ADMINISTERED No Known Medications MEDICAL (GENERAL) HISTORY Type Description Date Medical History bipolar Medical History adhd Medical History anxiety
--- OUTSIDE RECORDS SUMMARY | 2020-03-18 15:33 | XMS REPORT ---
Author Author Jose Cruz FELDMAN CARLOS Organization [facility] Address [address] [place] [address] Care Team Providers Care Sales Advisory Manager Name Role Phone LIZETANGIE ANAYAYLA Unavailable PROBLEMS Type Condition ICD9-CM Code [id number] Code Onset Dates Condition S tatus SNOMED Code Problem Bipolar disorder, unspecified 296.80 Active 61066801 Problem Bipolar disorder F31.9 Active 137 83357 Problem Bipolar I disorder, most recent episode (or current) mixed, moderate 296.62 Active 872891540 Problem Encounter for long-term (current) use of other medications V58.69 Active 769074418 Problem 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 Ac tive 86032891 Problem 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 314.00 Active 25019362 Problem Generalized anxiety disorder 300.02 A ctive 71465435 Problem Attention-deficit hyperactiv ity disorder, predominantly inattentive type F90.0 Active 66113965 Problem Intellectual disability F79 Active 53555093 Problem Attention deficit hyperactivity disorder F90.9 Active 625283050 Problem Intermittent explosive disorder F63.81 Active 34589804 Problem Moderate intellectual disability F71 Active 68974984 Problem Bipolar disorder, currently in remission, most recent episode unspecified F31.70 Active 73886244 ALLERGIES No Information ENCOUNTERS Encounter Location Date Diagnosis [facility] [address] [facility] [id number] [address] [place] [id number] Jun, [facility] [address] [facility] [id number] [address] [place] [address] Jun, Bipolar disorder, currently in remission, most recent episode unspecified F31.70 [facility] [address] [id number] [address] [place] [address] [id number] Jun, Dental examination Z01.20 an d Dental caries K02.9 [facility] [address] [facility] [id number] [address] [place] [address] May, Bipolar disorder, currently in remission, most recent episode unspecified F31.70 [facility] [address] [id number] [address] [place] [address] May, Bipolar disorder, currently in remission, most recent episode unspecified F31.70 [facility] [address] [id number] [address] [place] [address] May, Bipolar disorder, currently in remission, most recent episode unspecified F31.70 ; Moderate intellectual disability F71 and Attention-deficit hyperactivity disorder, predominantly inattentive type F90.0 [facility] [address] [id number] [address] [place] [id number] Apr, Bipolar disorder, unspecifie d F31.9 [facility] [address] [id number] [address] [place] [address] Apr, [facility] [address] [id number] [address] [place] [address] Apr, [facility] [address] [id number] [address] [place] [address] Apr, [facility] [address] [id number] [address] [place] [address] March, [facility] [address] [id number] [address] [place] [address] March, Bipolar disorder, currently in remission, most recent episode unspecified F31.70 ; Moderate intellectual disability 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 and Attention-deficit hyperactivity disorder, predominantly inattentive type F90.0 [facility] [address] [id number] [address] [place] [address] Feb, [facility] [address] [id number] [address] [place] [address] [id number] Feb, Dental examination Z01.20 [facility] [address] [id number] [address] [place] [address] Jan, [facility] [address] [id number] [address] [place] [phone] Jan, [facility] [address] [id number] [address] [place] [address] Dec, [facility] [address] [id number] [address] [place] [address] Nov, [facility] [address] [id number] [address] [place] [address] [id number] Nov, Encounter for dental exam an d cleaning w/o abnormal findings Z01.20 [facility] [address] [id number] [address] [place] [address] [id number] Nov, Dental examination Z01.20 [facility] [address] [id number] [address] [place] [address] Oct, [facility] [address] [id number] [address] [place] [address] Oct, Bipolar disorder, currently in remission, most recent episode unspecified F31.70 ; Moderate intellectual disability F71 and Attention-deficit hyperactivity disorder, predominantly inattentive type F90.0 [facility] [address] [id number] [address] [place] [address] Sep, [facility] [address] [id number] [address] [place] [address] Sep, [facility] [address] [id number] [address] [place] [address] Aug, [facility] [address] [id number] [address] [place] [address] Aug, Attention-deficit hyperactiv ity disorder, predominantly inattentive type F90.0 ; Moderate intellectual disability 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 and Bipolar disorder F31.9 [facility] [address] [id number] [address] [place] [address] [id number] Jul, Dental examination Z01.20 an d Dental caries K02.9 [facility] [address] [id number] [address] [place] [id number] 05 Jul, 2017 [facility] [address] [id number] [address] [place] [address] Jun, Bipolar disorder F31.9 ; Att ention-deficit hyperactivity disorder, predominantly inattentive type F90.0 and Moderate intellectual disability F71 [facility] [address] [id number] [address] [place] [id number] 11 Jun, 2017 [facility] [address] [facility] [id number] [address] [place] [id number] 17 May, 2017 [facility] [address] [facility] [id number] [address] [place] [address] Apr, [facility] [address] [facility] [id number] [address] [place] [phone] March, Intermittent explosive disor jocelyn F63.81 ; Attention deficit hyperactivity disorder F90.9 and Bipolar disorder F31.9 [facility] [address] [id number] [address] [place] [address] Feb, [facility] [address] [id number] [address] [place] [address] Jan, [facility] [address] [facility] [id number] [address] [place] [id number] 13 Dec, 2016 Encounter for immunization Z 23 [facility] [address] [facility] [id number] [address] [place] [id number] 13 Dec, 2016 Intermittent explosive disor jocelyn F63.81 ; Attention deficit hyperactivity disorder F90.9 and Bipolar disorder, currently in remission, most recent episode unspecified F31.70 [facility] [address] [facility] [id number] [address] [place] [phone] Nov, [facility] [address] [facility] [id number] [address] [place] [address] Oct, [facility] [address] [facility] [id number] [address] [place] [address] Oct, [facility] [address] [id number] [address] [place] [address] [id number] Oct, Dental examination Z01.20 [facility] [address] [id number] [address] [place] [address] Sep, [facility] [address] [facility] [id number] [address] [place] [phone] Sep, [facility] [address] [facility] [id number] [address] [place] [address] Sep, Intermittent explosive disor jocelyn F63.81 ; Bipolar disorder F31.9 and Attention deficit hyperactivity disorder F90.9 [facility] [address] [id number] [address] [place] [address] Aug, [facility] [address] [facility] [id number] [address] [place] [id number] Aug, [facility] [address] [facility] [id number] [address] [place] [address] Aug, [facility] [address] [facility] [id number] [address] [place] [address] Aug, Attention deficit hyperactiv ity disorder F90.9 [facility] [address] [id number] [address] [place] [address] Jul, [facility] [address] [facility] [id number] [address] [place] [address] Jun, [facility] [address] [facility] [id number] [address] [place] [phone] May, [facility] [address] [id number] [address] [place] [address] Apr, [facility] [address] [facility] [id number] [address] [place] [address] Apr, Bipolar disorder F31.9 ; Att ention deficit hyperactivity disorder F90.9 and Intermittent explosive disorder F63.81 [facility] [address] [facility] [id number] [address] [place] [address] March, [facility] [address] [id number] [address] [place] [address] Feb, [facility] [address] [id number] [address] [place] [address] Feb, [facility] [address] [id number] [address] [place] [id number] Jan, [facility] [address] [id number] [address] [place] [address] Jan, [facility] [address] [id number] [address] [place] [address] Dec, [facility] [address] [id number] [address] [place] [id number] Nov, [facility] [address] [facility] [id number] [address] [place] [address] Nov, [facility] [address] [id number] [address] [place] [address] Nov, Attention deficit hyperactiv ity disorder F90.9 ; Intermittent explosive disorder F63.81 and Bipolar disorder F31.9 [facility] [address] [id number] [address] [place] [address] Oct, [facility] [address] [facility] [id number] [address] [place] [id number] Oct, [facility] [address] [id number] [address] [place] [address] Sep, [facility] [address] [id number] [address] [place] [address] Aug, [facility] [address] [id number] [address] [place] [address] Jul, [facility] [address] [id number] [address] [place] [address] Jul, [facility] [address] [id number] [address] [place] [address] Jul, Anxiety, generalized 300.02 ; Bipolar disorder, unspecified 296.80 ; 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.00 ; 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 and Impulse control disorder, unspecified 312.30 [facility] [address] [id number] [address] [place] [address] Jul, [facility] [address] [id number] [address] [place] [address] Jun, [facility] [address] [id number] [address] [place] [address] May, [facility] [address] [id number] [address] [place] [address] Apr, [facility] [address] [id number] [address] [place] [address] Apr, Bipolar disorder, unspecifie d 296.80 ; Generalized anxiety disorder 300.02 and 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.00 [facility] [address] [id number] [address] [place] [address] Apr, [facility] [address] [id number] [address] [place] [address] March, [facility] [address] [id number] [address] [place] [address] March, [facility] [address] [id number] [address] [place] [phone] March, [facility] [address] [id number] [address] [place] [address] March, [facility] [address] [id number] [address] [place] [address] Feb, [facility] [address] [id number] [address] [place] [address] Feb, [facility] [address] [id number] [address] [place] [address] Jan, [facility] [address] [id number] [address] [place] [address], [place] [address] Jan, 2014 [facility] [address] [id number] [address] [place] [address], [place] [address] Jan, 2014 [facility] [address] [id number] [address] [place] [address], [place] [address] Jan, [facility] [address] [id number] [address] [place] [address], [place] [address] Jan, [facility] [address] [id number] [address] [place] [address], [place] [address] Dec, [facility] [address] [id number] [address] [place] [address], [place] [address] Dec, [facility] [address] [id number] [address] [place] [address], [place] [address] Nov, [facility] [address] [id number] [address] [place] [address], [place] [address] Nov, [facility] [address] [id number] [address] [place] [address], [place] [address] Nov, [facility] [address] [id number] [address] [place] [address], [place] [address] Oct, [facility] [address] [id number] [address] [place] [address], [place] [address] Oct, [facility] [address] [id number] [address] [place] [address], [place] [address] Oct, [facility] [address] [id number] [address] [place] [address], [place] [address] Oct, [facility] [address] [id number] [address] [place] [address], [place] [address] Oct, [facility] [address] [id number] [address] [place] [address], [place] [address] Oct, [facility] [address] [id number] [address] [place] [address], [place] [address] Sep, [facility] [address] [id number] [address] [place] [address], [place] [address] Sep, [facility] [address] [id number] [address] [place] [address], [place] [address] Sep, [facility] [address] [id number] [address] [place] [address], [place] [address] Aug, [facility] [address] [id number] [address] [place] [address], [place] [address] Aug, [facility] [address] [id number] [address] [place] [address], [place] [address] Jul, [facility] [address] [id number] [address] [place] [address], [place] [address] Jul, [facility] [address] [id number] [address] [place] [address], [place] [address] Jun, [facility] [address] [id number] [address] [place] [address], [place] [address] Jun, [facility] [address] [id number] [address] [place] [address], [place] [address] Jun, [facility] [address] [id number] [address] [place] [address], [place] [address] Jun, [facility] [address] [id number] [address] [place] [address], [place] [address] May, [facility] [address] [id number] [address] [place] [address], [place] [address] May, [facility] [address] [id number] [address] [place] [address], [place] [address] May, [facility] [address] [id number] [address] [place] [address], [place] [address] Apr, [facility] [address] [id number] [address] [place] [address], [place] [address] Apr, [facility] [address] [id number] [facility] [place] [address] Apr, [facility] [address] [id number] [facility] [place] [address] Apr, [facility] [address] [id number] [facility] [place] [address] March, [facility] [address] [id number] [address] [place] [address], [place] [address] March, [facility] [address] [id number] [address] [place] [address], [place] [address] March, [facility] [address] [id number] [address] [place] [address], [place] [address] March, [facility] [address] [id number] [address] [place] [address], [place] [address] Feb, [facility] [address] [id number] [address] [place] [address], [place] [address] Feb, [facility] [address] [id number] [address] [place] [address], [place] [address] Jan, [facility] [address] [id number] [address] [place] [address], [place] [address] Jan, [facility] [address] [id number] [address] [place] [address], [place] [address] Jan, [facility] [address] [id number] [address] [place] [address], [place] [address] Jan, [facility] [address] [id number] [address] [place] [address], [place] [address] Jan, [facility] [address] [id number] [address] [place] [address], [place] [address] Jan, [facility] [address] [id number] [address] [place] [address], [place] [address] Jan, [facility] [address] [id number] [address] [place] [address], [place] [address] Jan, [facility] [address] [id number] [facility] [place] [address] Dec, [facility] [address] [id number] [address] [place] [address], [place] [address] Dec, [facility] [address] [id number] [address] [place] [address], [place] [address] Dec, [facility] [address] [id number] [address] [place] [address], [place] [address] Dec, [facility] [address] [id number] [address] [place] [address], [place] [address] Nov, [facility] [address] [id number] [address] [place] [address], [place] [address] Nov, [facility] [address] [id number] [address] [place] [address], [place] [address] Oct, [facility] [address] [id number] [address] [place] [address], [place] [address] Oct, [facility] [address] [id number] [address] [place] [address], [place] [address] Oct, [facility] [address] [id number] [address] [place] [address], [place] [address] Oct, [facility] [address] [id number] [address] [place] [address], [place] [id number] Sep, [facility] [address] [id number] [address] [place] [address], [place] [id number] Sep, [facility] [address] [id number] [address] [place] [address], [place] [id number] Sep, [facility] [address] [id number] [address] [place] [address], [place] [id number] Sep, [facility] [address] [id number] [address] [place] [address], [place] [id number] Aug, [facility] [address] [id number] [address] [place] [address], [place] [id number] 10 Aug, 2013 [facility] [address] [id number] [address] [place] [address], [place] [id number] 07 Aug, 2013 [facility] [address] [id number] [address] [place] [address], [place] [id number] Jul, [facility] [address] [id number] [address] [place] [address], [place] [id number] Jul, [facility] [address] [id number] [address] [place] [address], [place] [id number] Jun, [facility] [address] [id number] [address] [place] [address], [place] [id number] Jun, [facility] [address] [id number] [address] [place] [address], [place] [id number] May, [facility] [address] [id number] [address] [place] [address], [place] [id number] May, [facility] [address] [id number] [address] [place] [address], [place] [id number] Apr, [facility] [address] [id number] [address] [place] [address], [place] [id number] March, [facility] [address] [id number] [address] [place] [address], [place] [id number] March, [facility] [address] [id number] [address] [place] [address], [place] [id number] Feb, [facility] [address] [id number] [address] [place] [address], [place] [id number] Jan, [facility] [address] [id number] [address] [place] [address], [place] [id number] Jan, [facility] [address] [id number] [address] [place] [address], [place] [id number] Dec, [facility] [address] [id number] [address] [place] [address], [place] [id number] Dec, [facility] [address] [id number] [address] [place] [address], [place] [id number] Nov, [facility] [address] [id number] [address] [place] [address], [place] [id number] Nov, [facility] [address] [id number] [address] [place] [address], [place] [id number] Nov, [facility] [address] [id number] [address] [place] [address], [place] [id number] Nov, [facility] [address] [id number] [address] [place] [address], [place] [id number] Nov, [facility] [address] [id number] [address] [place] [address], [place] [id number] Oct, [facility] [address] [address] [id number] [address] [place] [address], [place] [address] Oct, [facility] [address] [id number] [address] [place] [address], [place] [id number] Oct, [facility] [address] [id number] [address] [place] [address], [place] [id number] Oct, [facility] [address] [id number] [address] [place] [address], [place] [address] Oct, [facility] [address] [id number] [address] [place] [address], [place] [address] Oct, [facility] [address] [id number] [address] [place] [address], [place] [address] Oct, [facility] [address] [id number] [address] [place] [address], [place] [address] Oct, [facility] [address] [id number] [address] [place] [address], [place] [id number] Sep, [facility] [address] [id number] [address] [place] [address], [place] [id number] Sep, [facility] [address] [id number] [address] [place] [address], [place] [address] Sep, [facility] [address] [id number] [address] [place] [address], [place] [address] Aug, [facility] [address] [id number] [address] [place] [address], [place] [id number] Aug, [facility] [address] [id number] [address] [place] [address], [place] [address] Aug, [facility] [address] [id number] [address] [place] [address], [place] [id number] Aug, [facility] [address] [id number] [address] [place] [address], [place] [address] Aug, [facility] [address] [id number] [address] [place] [address], [place] [id number] Jul, [facility] [address] [id number] [address] [place] [address], [place] [id number] Jul, [facility] [address] [id number] [address] [place] [address], [place] [id number] Jun, [facility] [address] [id number] [address] [place] [address], [place] [id number] May, [facility] [address] [id number] [address] [place] [address], [place] [address] May, [facility] [address] [id number] [address] [place] [address], [place] [id number] Apr, [facility] [address] [id number] [address] [place] [address], [place] [id number] March, [facility] [address] [id number] [address] [place] [address], [place] [id number] March, [facility] [address] [id number] [address] [place] [address], [place] [address] March, [facility] [address] [id number] [address] [place] [address], [place] [address] March, [facility] [address] [id number] [address] [place] [address], [place] [id number] 10 Feb, 2012 [facility] [address] [id number] [address] [place] [address], [place] [address] Feb, [facility] [address] [id number] [address] [place] [address], [place] [id number] Jan, [facility] [address] [id number] [address] [place] [address], [place] [id number] 10 Dec, 2011 [facility] [address] [id number] [address] [place] [address], [place] [id number] 08 Dec, 2011 [facility] [address] [id number] [address] [place] [address], [place] [address] Dec, [facility] [address] [id number] [address] [place] [address], [place] [address] Nov, [facility] [address] [id number] [address] [place] [address], [place] [id number] Nov, [facility] [address] [id number] [address] [place] [address], [place] [id number] Nov, [facility] [address] [id number] [address] [place] [address], [place] [id number] Oct, [facility] [address] [id number] [address] [place] [address], [place] [address] Sep, [facility] [address] [id number] [address] [place] [address], [place] [address] Aug, [facility] [address] [id number] [address] [place] [address], [place] [id number] Aug, [facility] [address] [id number] [address] [place] [address], [place] [address] May, [facility] [address] [id number] [address] [place] [address], [place] [address] Sep, [facility] [address] [id number] [address] [place] [address], [place] [address] Sep, IMMUNIZATIONS No Known Immunizations SOCIAL HISTORY Never Assessed REASON FOR VISIT refill request zyprexa PLAN OF CARE VITAL SIGNS MEDICATIONS Medication Instructions Dosage Frequency Start Date End Date Duration S tatus Seroquel 50 MG Orally Once a day 1 tablet 24h 30 day s Active RESULTS No Results PROCEDURES No Known procedures INSTRUCTIONS MEDICATIONS ADMINISTERED No Known Medications MEDICAL (GENERAL) HISTORY Type Description Date Medical History bipolar Medical History adhd Medical History anxiety
--- OUTSIDE RECORDS SUMMARY | 2020-03-18 15:33 | XMS REPORT ---
Author Author Jose Cruz FELDMAN CARLOS Organization [facility] Address [address] [place] [address] Care Team Providers Care Mandarin Teacher Name Role Phone LIZETANGIE ANAYAYLA Unavailable PROBLEMS Type Condition ICD9-CM Code JNP06-HX Code Onset Dates Condition S tatus SNOMED Code Problem Bipolar disorder, unspecified 296.80 Active 99971984 Problem Bipolar disorder F31.9 Active 137 63212 Problem Bipolar I disorder, most recent episode (or current) mixed, moderate 296.62 Active 429118339 Problem Encounter for long-term (current) use of other medications V58.69 Active 838261722 Problem 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 Ac tive 86935281 Problem 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 314.00 Active 09151496 Problem Generalized anxiety disorder 300.02 A ctive 87934930 Problem Attention-deficit hyperactiv ity disorder, predominantly inattentive type F90.0 Active 99108642 Problem Intellectual disability F79 Active 67546618 Problem Attention deficit hyperactivity disorder F90.9 Active 149267558 Problem Intermittent explosive disorder F63.81 Active 32593989 Problem Moderate intellectual disability F71 Active 08111276 Problem Bipolar disorder, currently in remission, most recent episode unspecified F31.70 Active 04397070 ALLERGIES No Information ENCOUNTERS Encounter Location Date Diagnosis [facility] [address] [facility] [id number] [address] [place] [id number] Jun, [facility] [address] [facility] [id number] [address] [place] [phone] Jun, Bipolar disorder, currently in remission, most recent episode unspecified F31.70 [facility] [address] [id number] [address] [place] [address] [id number] Jun, Dental examination Z01.20 an d Dental caries K02.9 [facility] [address] [facility] [id number] [address] [place] [id number] May, Bipolar disorder, currently in remission, most recent episode unspecified F31.70 [facility] [address] [id number] [address] [place] [address] May, Bipolar disorder, currently in remission, most recent episode unspecified F31.70 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 [address] [id number] [address] [place] [phone] Apr, Bipolar disorder, unspecifie d F31.9 [facility] [address] [id number] [address] [place] [phone] Apr, [facility] [address] [id number] [address] [place] [phone] Apr, [facility] [address] [id number] [address] [place] [phone] Apr, [facility] [address] [id number] [address] [place] [phone] March, [facility] [address] [id number] [address] [place] [address] March, Bipolar disorder, currently in remission, most recent episode unspecified F31.70 ; Moderate intellectual disability F71 and Attention-deficit hyperactivity disorder, predominantly inattentive type F90.0 [facility] [address] [id number] [address] [place] [phone] Feb, [facility] [address] [id number] [address] [place] [address] [id number] Feb, Dental examination Z01.20 [facility] [address] [id number] [address] [place] [phone] Jan, [facility] [address] [id number] [address] [place] [phone] Jan, [facility] [address] [id number] [address] [place] [phone] Dec, [facility] [address] [id number] [address] [place] [phone] Nov, [facility] [address] [id number] [address] [place] [id number] Nov, Encounter for dental exam an d cleaning w/o abnormal findings Z01.20 [facility] [address] [id number] [address] [place] [address] [id number] Nov, Dental examination Z01.20 [facility] [address] [id number] [address] [place] [id number] Oct, [facility] [address] [id number] [address] [place] [phone] Oct, Bipolar disorder, currently in remission, most recent episode unspecified F31.70 ; Moderate intellectual disability F71 and Attention-deficit hyperactivity disorder, predominantly inattentive type F90.0 [facility] [address] [id number] [address] [place] [phone] Sep, [facility] [address] [id number] [address] [place] [phone] Sep, [facility] [address] [id number] [address] [place] [id number] Aug, [facility] [address] [id number] [address] [place] [id number] Aug, Attention-deficit hyperactiv ity disorder, predominantly inattentive type F90.0 ; Moderate intellectual disability F71 and Bipolar disorder F31.9 [facility] [address] [id number] [address] [place] [address] [id number] Jul, Dental examination Z01.20 an d Dental caries K02.9 [facility] [address] [id number] [address] [place] [phone] 05 Jul, 2017 [facility] [address] [id number] [address] [place] [phone] Jun, Bipolar disorder F31.9 ; Att ention-deficit hyperactivity disorder, predominantly inattentive type F90.0 and Moderate intellectual disability F71 [facility] [address] [id number] [address] [place] [id number] 11 Jun, 2017 [facility] [address] [facility] [id number] [address] [place] [phone] 17 May, 2017 [facility] [address] [facility] [id number] [address] [place] [phone] Apr, [facility] [address] [facility] [id number] [address] [place] [address] March, Intermittent explosive disor jocelyn F63.81 ; Attention deficit hyperactivity disorder F90.[address] [facility] [address] [id number] [address] [place] [phone] Feb, [facility] [address] [id number] [address] [place] [phone] Jan, [facility] [address] [facility] [id number] [address] [place] [id number] 13 Dec, 2016 Encounter for immunization Z 23 [facility] [address] [facility] [id number] [address] [place] [id number] 13 Dec, 2016 Intermittent explosive disor jocelyn F63.81 ; Attention deficit hyperactivity disorder F90.9 and Bipolar disorder, currently in remission, most recent episode unspecified F31.70 [facility] [address] [facility] [id number] [address] [place] [phone] Nov, [facility] [address] [facility] [id number] [address] [place] [phone] Oct, [facility] [address] [facility] [id number] [address] [place] [phone] Oct, [facility] [address] [id number] [address] [place] [address] [id number] Oct, Dental examination Z01.20 [facility] [address] [id number] [address] [place] [phone] Sep, [facility] [address] [facility] [id number] [address] [place] [phone] Sep, [facility] [address] [facility] [id number] [address] [place] [id number] Sep, Intermittent explosive disor jocelyn F63.81 ; Bipolar disorder F31.9 and Attention deficit hyperactivity disorder F90.9 [facility] [address] [id number] [address] [place] [id number] Aug, [facility] [address] [facility] [id number] [address] [place] [phone] Aug, [facility] [address] [facility] [id number] [address] [place] [phone] Aug, [facility] [address] [facility] [id number] [address] [place] [phone] Aug, Attention deficit hyperactiv ity disorder F90.9 [facility] [address] [id number] [address] [place] [phone] Jul, [facility] [address] [facility] [id number] [address] [place] [id number] Jun, [facility] [address] [facility] [id number] [address] [place] [id number] May, [facility] [address] [id number] [place] [id number] Apr, [facility] [address] [facility] [id number] [address] [place] [phone] Apr, Bipolar disorder F31.9 ; Att ention deficit hyperactivity disorder F90.9 and Intermittent explosive disorder F63.81 [facility] [address] [facility] [id number] [address] [place] [phone] March, [facility] [address] [id number] [address] [place] [phone] Feb, [facility] [address] [id number] [address] [place] [id number] Feb, [facility] [address] [id number] [address] [place] [phone] Jan, [facility] [address] [id number] [address] [place] [phone] Jan, [facility] [address] [id number] [address] [place] [phone] Dec, [facility] [address] [id number] [address] [place] [phone] Nov, [facility] [address] [facility] [id number] [address] [place] [phone] Nov, [facility] [address] [id number] [address] [place] [phone] Nov, Attention deficit hyperactiv ity disorder F90.9 ; Intermittent explosive disorder F63.81 [address] [facility] [address] [id number] [address] [place] [phone] Oct, [facility] [address] [facility] [id number] [address] [place] [phone] Oct, [facility] [address] [id number] [address] [place] [phone] Sep, [facility] [address] [id number] [address] [place] [phone] Aug, [facility] [address] [id number] [address] [place] [phone] Jul, [facility] [address] [id number] [address] [place] [phone] Jul, [facility] [address] [id number] [address] [place] [phone] Jul, Anxiety, generalized 300.02 ; Bipolar disorder, unspecified 296.80 ; 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.00 ; 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 and Impulse control disorder, unspecified 312.30 [facility] [address] [id number] [address] [place] [phone] Jul, [facility] [address] [id number] [address] [place] [id number] Jun, [facility] [address] [id number] [address] [place] [phone] May, [facility] [address] [id number] [address] [place] [phone] Apr, [facility] [address] [id number] [address] [place] [address] Apr, Bipolar disorder, unspecifie d 296.80 ; Generalized anxiety disorder 300.02 and 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.00 [facility] [address] [id number] [address] [place] [id number] Apr, [facility] [address] [id number] [address] [place] [phone] March, [facility] [address] [id number] [address] [place] [phone] March, [facility] [address] [id number] [address] [place] [phone] March, [facility] [address] [id number] [address] [place] [phone] March, [facility] [address] [id number] [address] [place] [phone] Feb, [facility] [address] [id number] [address] [place] [phone] Feb, [facility] [address] [id number] [address] [place] [phone] Jan, [facility] [address] [id number] [address] [place] [address], [place] [address] Jan, 2014 [facility] [address] [id number] [address] [place] [address], [place] [address] Jan, 2014 [facility] [address] [id number] [address] [place] [address], [place] [address] Jan, [facility] [address] [id number] [address] [place] [address], [place] [address] Jan, [facility] [address] [id number] [address] [place] [address], [place] [address] Dec, [facility] [address] [id number] [address] [place] [address], [place] [address] Dec, [facility] [address] [id number] [address] [place] [address], [place] [address] Nov, [facility] [address] [id number] [address] [place] [address], [place] [address] Nov, [facility] [address] [id number] [address] [place] [address], [place] [address] Nov, [facility] [address] [id number] [address] [place] [address], [place] [address] Oct, [facility] [address] [id number] [address] [place] [address], [place] [address] Oct, [facility] [address] [id number] [address] [place] [address], [place] [address] Oct, [facility] [address] [id number] [address] [place] [address], [place] [address] Oct, [facility] [address] [id number] [address] [place] [address], [place] [address] Oct, [facility] [address] [id number] [address] [place] [address], [place] [address] Oct, [facility] [address] [id number] [address] [place] [address], [place] [address] Sep, [facility] [address] [id number] [address] [place] [address], [place] [address] Sep, [facility] [address] [id number] [address] [place] [address], [place] [address] Sep, [facility] [address] [id number] [address] [place] [address], [place] [address] Aug, [facility] [address] [id number] [address] [place] [address], [place] [address] Aug, [facility] [address] [id number] [address] [place] [address], [place] [address] Jul, [facility] [address] [id number] [address] [place] [address], [place] [address] Jul, [facility] [address] [id number] [address] [place] [address], [place] [address] Jun, [facility] [address] [id number] [address] [place] [address], [place] [address] Jun, [facility] [address] [id number] [address] [place] [address], [place] [address] Jun, [facility] [address] [id number] [address] [place] [address], [place] [address] Jun, [facility] [address] [id number] [address] [place] [address], [place] [address] May, [facility] [address] [id number] [address] [place] [address], [place] [address] May, [facility] [address] [id number] [address] [place] [address], [place] [address] May, [facility] [address] [id number] [address] [place] [address], [place] [address] Apr, [facility] [address] [id number] [address] [place] [address], [place] [address] Apr, [facility] [address] [id number] [facility] [place] [address] Apr, [facility] [address] [id number] [facility] [address] Apr, [facility] [address] [id number] [facility] [address] March, [facility] [address] [id number] [address] [place] [address], [place] [address] March, [facility] [address] [id number] [address] [place] [address], [place] [address] March, [facility] [address] [id number] [address] [place] [address], [place] [address] March, [facility] [address] [id number] [address] [place] [address], [place] [address] Feb, [facility] [address] [id number] [address] [place] [address], [place] [address] Feb, [facility] [address] [id number] [address] [place] [address], [place] [address] Jan, [facility] [address] [id number] [address] [place] [address], [place] [address] Jan, [facility] [address] [id number] [address] [place] [address], [place] [address] Jan, [facility] [address] [id number] [address] [place] [address], [place] [address] Jan, [facility] [address] [id number] [address] [place] [address], [place] [address] Jan, [facility] [address] [id number] [address] [place] [address], [place] [address] Jan, [facility] [address] [id number] [address] [place] [address], [place] [address] Jan, [facility] [address] [id number] [address] [place] [address], [place] [address] Jan, [facility] [address] [id number] [facility] [address] Dec, [facility] [address] [id number] [address] [place] [address], [place] [address] Dec, [facility] [address] [id number] [address] [place] [address], [place] [address] Dec, [facility] [address] [id number] [address] [place] [address], [place] [address] Dec, [facility] [address] [id number] [address] [place] [address], [place] [address] Nov, [facility] [address] [id number] [address] [place] [address], [place] [address] Nov, [facility] [address] [id number] [address] [place] [address], [place] [address] Oct, [facility] [address] [id number] [address] [place] [address], [place] [address] Oct, [facility] [address] [id number] [address] [place] [address], [place] [address] Oct, [facility] [address] [id number] [address] [place] [address], [place] [address] Oct, [facility] [address] [id number] [address] [place] [address], [place] [address] Sep, [facility] [address] [id number] [address] [place] [address], [place] [address] Sep, [facility] [address] [id number] [address] [place] [address], [place] [address] Sep, [facility] [address] [id number] [address] [place] [address], [place] [address] Sep, [facility] [address] [id number] [address] [place] [address], [place] [address] Aug, [facility] [address] [id number] [address] [place] [address], [place] [address] 10 Aug, 2013 [facility] [address] [id number] [address] [place] [address], [place] [address] 07 Aug, 2013 [facility] [address] [id number] [address] [place] [address], [place] [address] Jul, [facility] [address] [id number] [address] [place] [address], [place] [address] Jul, [facility] [address] [id number] [address] [place] [address], [place] [address] Jun, [facility] [address] [id number] [address] [place] [address], [place] [address] Jun, [facility] [address] [id number] [address] [place] [address], [place] [address] May, [facility] [address] [id number] [address] [place] [address], [place] [address] May, [facility] [address] [id number] [address] [place] [address], [place] [address] Apr, [facility] [address] [id number] [address] [place] [address], [place] [address] March, [facility] [address] [id number] [address] [place] [address], [place] [address] March, [facility] [address] [id number] [address] [place] [address], [place] [address] Feb, [facility] [address] [id number] [address] [place] [address], [place] [address] Jan, [facility] [address] [id number] [address] [place] [address], [place] [address] Jan, [facility] [address] [id number] [address] [place] [address], [place] [address] Dec, [facility] [address] [id number] [address] [place] [address], [place] [address] Dec, [facility] [address] [id number] [address] [place] [address], [place] [address] Nov, [facility] [address] [id number] [address] [place] [address], [place] [address] Nov, [facility] [address] [id number] [address] [place] [address], [place] [address] Nov, [facility] [address] [id number] [address] [place] [address], [place] [address] Nov, [facility] [address] [id number] [address] [place] [address], [place] [address] Nov, [facility] [address] [id number] [address] [place] [address], [place] [address] Oct, [facility] [address] [id number] [address] [place] [address], [place] [address] Oct, [facility] [address] [id number] [address] [place] [address], [place] [address] Oct, [facility] [address] [id number] [address] [place] [address], [place] [address] Oct, [facility] [address] [id number] [address] [place] [address], [place] [address] Oct, [facility] [address] [id number] [address] [place] [address], [place] [address] Oct, [facility] [address] [id number] [address] [place] [address], [place] [address] Oct, [facility] [address] [id number] [address] [place] [address], [place] [address] Oct, [facility] [address] [id number] [address] [place] [address], [place] [address] Sep, [facility] [address] [id number] [address] [place] [address], [place] [address] Sep, [facility] [address] [id number] [address] [place] [address], [place] [address] Sep, [facility] [address] [id number] [address] [place] [address], [place] [address] Aug, [facility] [address] [id number] [address] [place] [address], [place] [address] Aug, [facility] [address] [id number] [address] [place] [address], [place] [address] Aug, [facility] [address] [id number] [address] [place] [address], [place] [address] Aug, [facility] [address] [id number] [address] [place] [address], [place] [address] Aug, [facility] [address] [id number] [address] [place] [address], [place] [address] Jul, [facility] [address] [id number] [address] [place] [address], [place] [address] Jul, [facility] [address] [id number] [address] [place] [address], [place] [address] Jun, [facility] [address] [id number] [address] [place] [address], [place] [address] May, [facility] [address] [id number] [address] [place] [address], [place] [address] May, [facility] [address] [id number] [address] [place] [address], [place] [address] Apr, [facility] [address] [id number] [address] [place] [address], [place] [address] March, [facility] [address] [id number] [address] [place] [address], [place] [address] March, [facility] [address] [id number] [address] [place] [address], [place] [address] March, [facility] [address] [id number] [address] [place] [address], [place] [address] March, [facility] [address] [id number] [address] [place] [address], [place] [address] 10 Feb, 2012 [facility] [address] [id number] [address] [place] [address], [place] [address] Feb, [facility] [address] [id number] [address] [place] [address], [place] [address] Jan, [facility] [address] [id number] [address] [place] [address], [place] [address] 10 Dec, 2011 [facility] [address] [id number] [address] [place] [address], [place] [address] 08 Dec, 2011 [facility] [address] [id number] [address] [place] [address], [place] [address] Dec, [facility] [address] [id number] [address] [place] [address], [place] [address] Nov, [facility] [address] [id number] [address] [place] [address], [place] [address] Nov, [facility] [address] [id number] [address] [place] [address], [place] [address] Nov, [facility] [address] [id number] [address] [place] [address], [place] [address] Oct, [facility] [address] [id number] [address] [place] [address], [place] [address] Sep, [facility] [address] [id number] [address] [place] [address], [place] [address] Aug, [facility] [address] [id number] [address] [place] [address], [place] [address] Aug, [facility] [address] [id number] [address] [place] [address], [place] [address] May, [facility] [address] [id number] [address] [place] [address], [place] [address] Sep, [facility] [address] [id number] [address] [place] [address], [place] [address] Sep, IMMUNIZATIONS No Known Immunizations SOCIAL HISTORY Never Assessed REASON FOR VISIT vyvsnse 06/15/18 PLAN OF CARE VITAL SIGNS MEDICATIONS Medication Instructions Dosage Frequency Start Date End Date Duration S rené Vyvanse 70 MG Orally Once a day 1 capsule in the morning 24h May, 28 days Active RESULTS No Results PROCEDURES No Known procedures INSTRUCTIONS MEDICATIONS ADMINISTERED No Known Medications MEDICAL (GENERAL) HISTORY Type Description Date Medical History bipolar Medical History adhd Medical History anxiety
--- OUTSIDE RECORDS SUMMARY | 2020-03-18 15:33 | XMS REPORT ---
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 Name Role Phone LUZMA CORMIER Unavailable PROBLEMS Type Condition ICD9-CM Code PCE50-WS Code Onset Dates Condition S tatus SNOMED Code Problem Bipolar disorder, unspecified 296.80 Active 29917647 Problem Bipolar disorder F31.9 Active 137 33070 Problem Bipolar I disorder, most recent episode (or current) mixed, moderate 296.62 Active 038639022 Problem Encounter for long-term (current) use of other medications V58.69 Active 861401044 Problem 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 Ac tive 04794035 Problem 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 314.00 Active 36849261 Problem Generalized anxiety disorder 300.02 A ctive 85888705 Problem Attention-deficit hyperactiv ity disorder, predominantly inattentive type F90.0 Active 31136013 Problem Intellectual disability F79 Active 41352941 Problem Attention deficit hyperactivity disorder F90.9 Active 384195955 Problem Intermittent explosive disorder F63.81 Active 89613044 Problem Moderate intellectual disability F71 Active 39111600 Problem Bipolar disorder, currently in remission, most recent episode unspecified F31.70 Active 50047740 ALLERGIES No Known Allergies ENCOUNTERS Encounter Location Date Diagnosis [facility] [address] [facility] [id number] [address] [place] [phone] Jul, Bipolar disorder, currently in remission, most recent episode unspecified F31.70 [facility] [address] [facility] [id number] [address] [place] [address] Jul, Bipolar disorder, currently in remission, most recent episode unspecified F31.70 [facility] [address] [facility] [id number] [address] [place] [phone] Jun, [facility] [address] [facility] [id number] [address] [place] [address] Jun, Bipolar disorder, currently in remission, most recent episode unspecified F31.70 [facility] [address] [id number] [address] [place] [id number] Jun, Dental examination Z01.20 an d Dental caries K02.9 [facility] [address] [id number] [address] [place] [address] May, Bipolar disorder, currently in remission, most recent episode unspecified F31.70 [facility] [address] [id number] [address] [place] [address] May, Bipolar disorder, currently in remission, most recent episode unspecified F31.70 [facility] [address] [id number] [address] [place] [phone] May, Bipolar disorder, currently in remission, most recent episode unspecified F31.70 ; Moderate intellectual disability F71 and Attention-deficit hyperactivity disorder, predominantly inattentive type F90.0 [facility] [address] [id number] [address] [place] [address] Apr, Bipolar disorder, unspecifie d F31.9 [facility] [address] [id number] [address] [place] [address] Apr, [facility] [address] [id number] [address] [place] [address] Apr, [facility] [address] [id number] [address] [place] [address] Apr, [facility] [address] [id number] [address] [place] [phone] March, [facility] [address] [id number] [address] [place] [address] March, Bipolar disorder, currently in remission, most recent episode unspecified F31.70 ; Moderate intellectual disability F71 and Attention-deficit hyperactivity disorder, predominantly inattentive type F90.0 [facility] [address] [id number] [address] [place] [address] Feb, [facility] [address] [id number] [address] [place] [id number] Feb, Dental examination Z01.20 [facility] [address] [id number] [address] [place] [address] Jan, [facility] [address] [id number] [address] [place] [address] Jan, [facility] [address] [id number] [address] [place] [address] Dec, [facility] [address] [id number] [address] [place] [address] Nov, [facility] [address] [id number] [address] [place] [id number] Nov, Dental examination Z01.20 [facility] [address] [id number] [address] [place] [id number] Nov, Encounter for dental exam an d cleaning w/o abnormal findings Z01.20 [facility] [address] [id number] [address] [place] [address] Oct, [facility] [address] [id number] [address] [place] [address] Oct, Bipolar disorder, currently in remission, most recent episode unspecified F31.70 ; Moderate intellectual disability F71 and Attention-deficit hyperactivity disorder, predominantly inattentive type F90.0 [facility] [address] [id number] [address] [place] [phone] Sep, [facility] [address] [id number] [address] [place] [address] Sep, [facility] [address] [id number] [address] [place] [phone] Aug, [facility] [address] [id number] [address] [place] [address] Aug, Attention-deficit hyperactiv ity disorder, predominantly inattentive type F90.0 ; Moderate intellectual disability F71 and Bipolar disorder F31.9 [facility] [address] [id number] [address] [place] [address] [id number] 11 Jul, 2017 Dental examination Z01.20 an d Dental caries K02.9 [facility] [address] [facility] [id number] [address] [place] [id number] 05 Jul, 2017 [facility] [address] [facility] [id number] [address] [place] [address] Jun, Bipolar disorder F31.9 ; Att ention-deficit hyperactivity disorder, predominantly inattentive type F90.0 and Moderate intellectual disability F71 [facility] [address] [facility] [id number] [address] [place] [address] Jun, [facility] [address] [facility] [id number] [address] [place] [address] May, [facility] [address] [facility] [id number] [address] [place] [phone] Apr, [facility] [address] [facility] [id number] [address] [place] [address] March, Intermittent explosive disor jocelyn F63.81 ; Attention deficit hyperactivity disorder F90.9 and Bipolar disorder F31.9 [facility] [address] [facility] [id number] [address] [place] [address] Feb, [facility] [address] [facility] [id number] [address] [place] [address] Jan, [facility] [address] [facility] [id number] [address] [place] [phone] 13 Dec, 2016 Encounter for immunization Z 23 [facility] [address] [facility] [id number] [address] [place] [phone] 13 Dec, 2016 Intermittent explosive disor jocelyn F63.81 ; Attention deficit hyperactivity disorder F90.9 and Bipolar disorder, currently in remission, most recent episode unspecified F31.70 [facility] [address] [facility] [id number] [address] [place] [phone] Nov, [facility] [address] [id number] [address] [place] [address] Oct, [facility] [address] [id number] [address] [place] [phone] Oct, [facility] [address] [id number] [address] [place] [address] [id number] Oct, Dental examination Z01.20 [facility] [address] [id number] [address] [place] [address] Sep, [facility] [address] [id number] [address] [place] [phone] Sep, [facility] [address] [facility] [id number] [address] [place] [id number] Sep, Intermittent explosive disor jocelyn F63.81 ; Bipolar disorder F31.9 and Attention deficit hyperactivity disorder F90.9 [facility] [address] [id number] [address] [place] [phone] Aug, [facility] [address] [id number] [address] [place] [phone] Aug, [facility] [address] [facility] [id number] [address] [place] [address] Aug, [facility] [address] [id number] [address] [place] [address] Aug, Attention deficit hyperactiv ity disorder F90.9 [facility] [address] [id number] [address] [place] [address] Jul, [facility] [address] [facility] [id number] [address] [place] [id number] Jun, [facility] [address] [id number] [address] [place] [id number] May, [facility] [address] [facility] [id number] [address] [place] [phone] Apr, [facility] [address] [id number] [address] [place] [address] Apr, Bipolar disorder F31.9 ; Att ention deficit hyperactivity disorder F90.9 and Intermittent explosive disorder F63.81 [facility] [address] [id number] [address] [place] [address] March, [facility] [address] [id number] [address] [place] [phone] Feb, [facility] [address] [id number] [address] [place] [phone] Feb, [facility] [address] [id number] [address] [place] [phone] Jan, [facility] [address] [id number] [address] [place] [phone] Jan, [facility] [address] [id number] [address] [place] [phone] Dec, [facility] [address] [id number] [address] [place] [phone] Nov, [facility] [address] [id number] [address] [place] [phone] Nov, [facility] [address] [id number] [address] [place] [id number] Nov, Attention deficit hyperactiv ity disorder F90.9 ; Intermittent explosive disorder F63.81 and Bipolar disorder F31.9 [facility] [address] [id number] [address] [place] [id number] Oct, [facility] [address] [id number] [address] [place] [phone] Oct, [facility] [address] [id number] [address] [place] [id number] Sep, [facility] [address] [id number] [address] [place] [id number] Aug, [facility] [address] [id number] [address] [place] [address] Jul, [facility] [address] [id number] [address] [place] [id number] Jul, [facility] [address] [id number] [address] [place] [address] Jul, Anxiety, generalized 300.02 ; Bipolar disorder, unspecified 296.80 ; 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.00 ; 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 and Impulse control disorder, unspecified 312.30 [facility] [address] [id number] [address] [place] [address] Jul, [facility] [address] [id number] [address] [place] [id number] Jun, [facility] [address] [facility] [id number] [address] [place] [id number] May, [facility] [address] [id number] [address] [place] [address] Apr, [facility] [address] [id number] [address] [place] [address] Apr, Bipolar disorder, unspecifie d 296.80 ; Generalized anxiety disorder 300.02 and 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.00 [facility] [address] [id number] [address] [place] [address] Apr, [facility] [address] [id number] [address] [place] [address] March, [facility] [address] [id number] [address] [place] [id number] March, [facility] [address] [facility] [id number] [address] [place] [address] March, [facility] [address] [facility] [id number] [address] [place] [address] March, [facility] [address] [id number] [address] [place] [address], [place] [address] 14 Feb, 2015 [facility] [address] [id number] [address] [place] [address], [place] [id number] 13 Feb, 2015 [facility] [address] [id number] [address] [place] [address], [place] [address] 23 Jan, 2015 [facility] [address] [id number] [address] [place] [address], [place] [address] Jan, [facility] [address] [id number] [address] [place] [address], [place] [address] Jan, [facility] [address] [id number] [address] [place] [address], [place] [address] Jan, [facility] [address] [id number] [address] [place] [address], [place] [address] Jan, [facility] [address] [id number] [address] [place] [address], [place] [address] Dec, [facility] [address] [id number] [address] [place] [address], [place] [address] Dec, [facility] [address] [id number] [address] [place] [address], [place] [address] Nov, [facility] [address] [id number] [address] [place] [address], [place] [address] Nov, [facility] [address] [id number] [address] [place] [address], [place] [address] Nov, [facility] [address] [id number] [address] [place] [address], [place] [address] Oct, [facility] [address] [id number] [address] [place] [address], [place] [address] Oct, [facility] [address] [id number] [address] [place] [address], [place] [address] Oct, [facility] [address] [id number] [address] [place] [address], [place] [address] Oct, [facility] [address] [id number] [address] [place] [address], [place] [address] Oct, [facility] [address] [id number] [address] [place] [address], [place] [address] Oct, [facility] [address] [id number] [address] [place] [address], [place] [address] Sep, [facility] [address] [id number] [address] [place] [address], [place] [address] Sep, [facility] [address] [id number] [address] [place] [address], [place] [address] Sep, [facility] [address] [id number] [address] [place] [address], [place] [address] Aug, [facility] [address] [id number] [address] [place] [address], [place] [address] Aug, [facility] [address] [id number] [address] [place] [address], [place] [address] Jul, [facility] [address] [id number] [address] [place] [address], [place] [address] Jul, [facility] [address] [id number] [address] [place] [address], [place] [address] Jun, [facility] [address] [id number] [address] [place] [address], [place] [address] Jun, [facility] [address] [id number] [address] [place] [address], [place] [address] Jun, [facility] [address] [id number] [address] [place] [address], [place] [address] Jun, [facility] [address] [id number] [address] [place] [address], [place] [address] May, [facility] [address] [id number] [address] [place] [address], [place] [address] May, [facility] [address] [id number] [facility] [place] [address] 16 May, 2014 [facility] [address] [id number] [facility] [place] [address] Apr, [facility] [address] [id number] [facility] [place] [address] Apr, [facility] [address] [id number] [address] [place] [address], [place] [address] Apr, [facility] [address] [id number] [address] [place] [address], [place] [address] Apr, [facility] [address] [id number] [address] [place] [address], [place] [address] March, [facility] [address] [id number] [address] [place] [address], [place] [address] March, [facility] [address] [id number] [address] [place] [address], [place] [address] March, [facility] [address] [id number] [address] [place] [address], [place] [address] March, [facility] [address] [id number] [address] [place] [address], [place] [address] Feb, [facility] [address] [id number] [address] [place] [address], [place] [address] Feb, [facility] [address] [id number] [address] [place] [address], [place] [address] Jan, [facility] [address] [id number] [address] [place] [address], [place] [address] Jan, [facility] [address] [id number] [address] [place] [address], [place] [address] Jan, [facility] [address] [id number] [address] [place] [address], [place] [address] Jan, [facility] [address] [id number] [address] [place] [address], [place] [address] Jan, [facility] [address] [id number] [address] [place] [address], [place] [address] Jan, [facility] [address] [id number] [address] [place] [address], [place] [address] Jan, [facility] [address] [id number] [address] [place] [address], [place] [address] Jan, [facility] [address] [id number] [address] [place] [address], [place] [address] Dec, [facility] [address] [id number] [address] [place] [address], [place] [address] Dec, [facility] [address] [id number] [address] [place] [address], [place] [address] Dec, [facility] [address] [id number] [address] [place] [address], [place] [address] Dec, [facility] [address] [id number] [address] [place] [address], [place] [address] Nov, [facility] [address] [id number] [address] [place] [address], [place] [address] Nov, [facility] [address] [id number] [address] [place] [address], [place] [address] Oct, [facility] [address] [id number] [address] [place] [address], [place] [address] Oct, [facility] [address] [id number] [address] [place] [address], [place] [address] Oct, [facility] [address] [id number] [address] [place] [address], [place] [address] Oct, [facility] [address] [id number] [address] [place] [address], [place] [address] Sep, [facility] [address] [id number] [address] [place] [address], [place] [address] Sep, [facility] [address] [id number] [address] [place] [address], [place] [address] 07 Sep, 2013 [facility] [address] [id number] [address] [place] [address], [place] [address] 07 Sep, 2013 [facility] [address] [id number] [address] [place] [address], [place] [address] Aug, [facility] [address] [id number] [address] [place] [address], [place] [address] Aug, [facility] [address] [id number] [address] [place] [address], [place] [address] Aug, [facility] [address] [id number] [address] [place] [address], [place] [address] Jul, [facility] [address] [id number] [address] [place] [address], [place] [address] Jul, [facility] [address] [id number] [address] [place] [address], [place] [address] Jun, [facility] [address] [id number] [address] [place] [address], [place] [address] Jun, [facility] [address] [id number] [address] [place] [address], [place] [address] May, [facility] [address] [id number] [address] [place] [address], [place] [address] May, [facility] [address] [id number] [address] [place] [address], [place] [address] Apr, [facility] [address] [id number] [address] [place] [address], [place] [address] March, [facility] [address] [id number] [address] [place] [address], [place] [address] March, [facility] [address] [id number] [address] [place] [address], [place] [address] Feb, [facility] [address] [id number] [address] [place] [address], [place] [address] Jan, [facility] [address] [id number] [address] [place] [address], [place] [address] Jan, [facility] [address] [id number] [address] [place] [address], [place] [address] Dec, [facility] [address] [id number] [address] [place] [address], [place] [address] Dec, [facility] [address] [id number] [address] [place] [address], [place] [address] Nov, [facility] [address] [id number] [address] [place] [address], [place] [address] Nov, [facility] [address] [id number] [address] [place] [address], [place] [address] Nov, [facility] [address] [id number] [address] [place] [address], [place] [address] Nov, [facility] [address] [id number] [address] [place] [address], [place] [address] Nov, [facility] [address] [id number] [address] [place] [address], [place] [address] Oct, [facility] [address] [id number] [address] [place] [address], [place] [address] Oct, [facility] [address] [id number] [address] [place] [address], [place] [address] Oct, [facility] [address] [id number] [address] [place] [address], [place] [address] Oct, [facility] [address] [id number] [address] [place] [address], [place] [address] Oct, [facility] [address] [id number] [address] [place] [address], [place] [address] Oct, [facility] [address] [id number] [address] [place] [address], [place] [address] Oct, [facility] [address] [id number] [address] [place] [address], [place] [address] Oct, [facility] [address] [id number] [address] [place] [address], [place] [address] Sep, [facility] [address] [id number] [address] [place] [address], [place] [address] Sep, [facility] [address] [id number] [address] [place] [address], [place] [address] Sep, [facility] [address] [id number] [address] [place] [address], [place] [address] Aug, [facility] [address] [id number] [address] [place] [address], [place] [address] Aug, [facility] [address] [id number] [address] [place] [address], [place] [address] Aug, [facility] [address] [id number] [address] [place] [address], [place] [address] Aug, [facility] [address] [id number] [address] [place] [address], [place] [address] Aug, [facility] [address] [id number] [address] [place] [address], [place] [address] Jul, [facility] [address] [id number] [address] [place] [address], [place] [address] Jul, [facility] [address] [id number] [address] [place] [address], [place] [address] Jun, [facility] [address] [id number] [address] [place] [address], [place] [address] May, [facility] [address] [id number] [address] [place] [address], [place] [address] May, [facility] [address] [id number] [address] [place] [address], [place] [address] Apr, [facility] [address] [id number] [address] [place] [address], [place] [address] March, [facility] [address] [id number] [address] [place] [address], [place] [address] March, [facility] [address] [id number] [address] [place] [address], [place] [address] March, [facility] [address] [id number] [address] [place] [address], [place] [address] March, [facility] [address] [id number] [address] [place] [address], [place] [address] Feb, [facility] [address] [id number] [address] [place] [address], [place] [address] Feb, [facility] [address] [id number] [address] [place] [address], [place] [address] Jan, [facility] [address] [id number] [address] [place] [address], [place] [address] Dec, [facility] [address] [id number] [address] [place] [address], [place] [address] Dec, [facility] [address] [id number] [address] [place] [address], [place] [address] Dec, [facility] [address] [id number] [address] [place] [address], [place] [address] Nov, [facility] [address] [id number] [address] [place] [address], [place] [address] Nov, [facility] [address] [id number] [address] [place] [address], [place] [address] Nov, [facility] [address] [id number] [address] [place] [address], [place] [address] Oct, [facility] [address] [id number] [address] [place] [address], [place] [address] Sep, [facility] [address] [id number] [address] [place] [address], [place] [address] Aug, [facility] [address] [id number] [address] [place] [address] [address] Aug, [facility] [address] [facility] [id number] [address] [address] May, [facility] [address] [facility] [id number] [address] [address] Sep, [facility] [address] [facility] [id number] [address] [address] Sep, IMMUNIZATIONS No Known Immunizations SOCIAL HISTORY Never Assessed REASON FOR VISIT ADULT OUTREACH CLASS [facility] PLAN OF CARE Activity Details Follow Up prn Reason:restorative as to lerated VITAL SIGNS MEDICATIONS Medication Instructions Dosage Frequency Start Date End Date Duration S tatus Clonidine HCl 0.1 MG Orally one tablet in the mor chloe, 2 tablets at 2pm and 1 tablet at bedtime 1 tablet March, Activ e Clonidine HCl 0.1 Orally one tablet in the mor chloe, 2 tablets at 2pm and 1 tablet at bedtime 1 tablet 30 Not-Zenon ing Trileptal 300 MG Orally Twice a day 1 tablet 12h March, 30 day(s) Not-Taking Fluvoxamine Maleate 100 TAKE THREE TABLETS BY MOUTH EV POLY NIGHT AT BEDTIME 30 Active Vyvanse 70 MG Orally Once a day 1 capsule in the morning 24h 19 May, 2018 28 days Active Rozerem 8 TAKE ONE TABLET BY MOUTH EVERY NIGHT AT BEDTIME 30 Active Seroquel 50 MG Orally Once a day 1 tablet 24h 30 day s Active Fluvoxamine Maleate 100 mg TAKE THREE TABLETS BY MOUTH EVERY NIGHT AT BEDTIME Active Rozerem 8 mg TAKE ONE TABLET BY MOUTH EVERY NIGHT AT BEDTIME Active Zyprexa 5 TAKE ONE TABLET BY MOUTH AT BEDTIME 14 Active Zyprexa 5 MG Orally at bedtime 1 tablet 14 days Active Trileptal 300 mg Orally 3 times a day 1 tablet 8h Active RESULTS No Results PROCEDURES Procedure Date Ordered Result Body Site PERIODIC ORAL EXAMINATION Jul 05, 2018 INTRAORL-PERIAPICAL 1 FILM [id number] Jul 05, 2018 TOPICAL FLUORIDE VARNISH Jul 05, 2018 PROPHYLAXIS - ADULT Jul 05, 2018 RESIN COMPOS - 2 SURFACES POSTERIOR Jul 05, 2018 INTRAORL-PERIAPICAL EA ADD FILM Jul 05, 2018 INTRAORL-PERIAPICAL EA ADD FILM Jul 05, 2018 INTRAORL-PERIAPICAL EA ADD FILM Jul 05, 2018 INTRAORL-PERIAPICAL EA ADD FILM Jul 05, 2018 INSTRUCTIONS MEDICATIONS ADMINISTERED No Known Medications MEDICAL (GENERAL) HISTORY Type Description Date Medical History bipolar Medical History adhd Medical History anxiety
--- OUTSIDE RECORDS SUMMARY | 2020-03-18 15:33 | XMS REPORT ---
Author Author Jose Cruz FELDMAN CARLOS Organization [facility] Address [address] [place] [address] Care Team Providers Care Flatwork Presser Name Role Phone LIZETANGIE ANAYAYLA Unavailable PROBLEMS Type Condition ICD9-CM Code KAC11-WT Code Onset Dates Condition S tatus SNOMED Code Problem Bipolar disorder, unspecified 296.80 Active 29769045 Problem Bipolar disorder F31.9 Active 137 93759 Problem Bipolar I disorder, most recent episode (or current) mixed, moderate 296.62 Active 057211122 Problem Encounter for long-term (current) use of other medications V58.69 Active 419222123 Problem 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 Ac tive 05806975 Problem 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 314.00 Active 28926890 Problem Generalized anxiety disorder 300.02 A ctive 45735474 Problem Attention-deficit hyperactiv ity disorder, predominantly inattentive type F90.0 Active 75008834 Problem Intellectual disability F79 Active 91051410 Problem Attention deficit hyperactivity disorder F90.9 Active 596609394 Problem Intermittent explosive disorder F63.81 Active 93327540 Problem Moderate intellectual disability F71 Active 54301373 Problem Bipolar disorder, currently in remission, most recent episode unspecified F31.70 Active 30073174 ALLERGIES No Known Allergies ENCOUNTERS Encounter Location Date Diagnosis [facility] [address] [facility] [id number] [address] [place] [phone] Jun, [facility] [address] [facility] [id number] [address] [place] [id number] Jun, Bipolar disorder, currently in remission, most recent episode unspecified F31.70 [facility] [address] [id number] [address] [place] [address] [id number] Jun, Dental examination Z01.20 an d Dental caries K02.9 [facility] [address] [facility] [id number] [address] [place] [id number] May, Bipolar disorder, currently in remission, most recent episode unspecified F31.70 [facility] [address] [id number] [address] [place] [phone] May, Bipolar disorder, currently in remission, most recent episode unspecified F31.70 [facility] [address] [id number] [address] [place] [phone] May, Bipolar disorder, currently in remission, most recent episode unspecified F31.70 ; Moderate intellectual disability F71 and Attention-deficit hyperactivity disorder, predominantly inattentive type F90.0 [facility] [address] [id number] [address] [place] [phone] Apr, Bipolar disorder, unspecifie d F31.9 [facility] [address] [id number] [address] [place] [id number] Apr, [facility] [address] [id number] [address] [place] [id number] Apr, [facility] [address] [id number] [address] [place] [phone] Apr, [facility] [address] [id number] [address] [place] [phone] March, [facility] [address] [id number] [address] [place] [address] March, Bipolar disorder, currently in remission, most recent episode unspecified F31.70 ; Moderate intellectual disability F71 and Attention-deficit hyperactivity disorder, predominantly inattentive type F90.0 [facility] [address] [id number] [address] [place] [phone] Feb, [facility] [address] [id number] [address] [place] [id number] Feb, Dental examination Z01.20 [facility] [address] [id number] [address] [place] [id number] Jan, [facility] [address] [id number] [address] [place] [id number] Jan, [facility] [address] [id number] [address] [place] [phone] Dec, [facility] [address] [id number] [address] [place] [id number] Nov, [facility] [address] [id number] [address] [place] [address] [id number] Nov, Dental examination Z01.20 [facility] [address] [id number] [place] [address] [id number] Nov, Encounter for dental exam an d cleaning w/o abnormal findings Z01.20 [facility] [address] [id number] [address] [place] [phone] Oct, [facility] [address] [facility] [id number] [address] [place] [id number] Oct, Bipolar disorder, currently in remission, most recent episode unspecified F31.70 ; Moderate intellectual disability F71 and Attention-deficit hyperactivity disorder, predominantly inattentive type F90.0 [facility] [address] [id number] [address] [place] [phone] Sep, [facility] [address] [id number] [address] [place] [phone] Sep, [facility] [address] [id number] [address] [place] [phone] Aug, [facility] [address] [facility] [id number] [address] [place] [phone] Aug, Attention-deficit hyperactiv ity disorder, predominantly inattentive type F90.0 ; Moderate intellectual disability F71 and Bipolar disorder F31.9 [facility] [address] [id number] [address] [place] [address] [id number] Jul, Dental examination Z01.20 an d Dental caries K02.9 [facility] [address] [id number] [address] [place] [phone] 05 Jul, 2017 [facility] [address] [facility] [id number] [address] [place] [phone] Jun, Bipolar disorder F31.9 ; Att ention-deficit hyperactivity disorder, predominantly inattentive type F90.0 and Moderate intellectual disability F71 [facility] [address] [facility] [id number] [address] [place] [id number] Jun, [facility] [address] [facility] [id number] [address] [place] [phone] May, [facility] [address] [facility] [id number] [address] [place] [phone] Apr, [facility] [address] [facility] [id number] [address] [place] [phone] March, Intermittent explosive disor jocelyn F63.81 ; Attention deficit hyperactivity disorder F90.9 and Bipolar disorder F31.9 [facility] [address] [facility] [id number] [address] [place] [phone] Feb, [facility] [address] [facility] [id number] [address] [place] [phone] Jan, [facility] [address] [facility] [id number] [address] [place] [phone] 13 Dec, 2016 Intermittent explosive disor jocelyn F63.81 ; Attention deficit hyperactivity disorder F90.9 and Bipolar disorder, currently in remission, most recent episode unspecified F31.70 [facility] [address] [facility] [id number] [address] [place] [id number] 13 Dec, 2016 Encounter for immunization Z 23 [facility] [address] [facility] [id number] [address] [place] [phone] Nov, [facility] [address] [facility] [id number] [address] [place] [phone] Oct, [facility] [address] [facility] [id number] [address] [place] [phone] Oct, [facility] [address] [facility] [id number] [address] [place] [address] [id number] Oct, Dental examination Z01.20 [facility] [address] [id number] [address] [place] [phone] Sep, [facility] [address] [id number] [address] [place] [phone] Sep, [facility] [address] [id number] [address] [place] [phone] Sep, Intermittent explosive disor jocelyn F63.81 ; Bipolar disorder F31.9 and Attention deficit hyperactivity disorder F90.9 [facility] [address] [id number] [address] [place] [phone] Aug, [facility] [address] [id number] [address] [place] [phone] Aug, [facility] [address] [facility] [id number] [address] [place] [phone] Aug, [facility] [address] [id number] [address] [place] [phone] Aug, Attention deficit hyperactiv ity disorder F90.9 [facility] [address] [id number] [address] [place] [phone] Jul, [facility] [address] [facility] [id number] [address] [place] [phone] Jun, [facility] [address] [facility] [id number] [address] [place] [phone] May, [facility] [address] [id number] [address] [place] [phone] Apr, [facility] [address] [facility] [id number] [address] [place] [phone] Apr, Bipolar disorder F31.9 ; Att ention deficit hyperactivity disorder F90.9 and Intermittent explosive disorder F63.81 [facility] [address] [id number] [address] [place] [phone] March, [facility] [address] [id number] [address] [place] [phone] Feb, [facility] [address] [id number] [address] [place] [phone] Feb, [facility] [address] [id number] [address] [place] [phone] Jan, [facility] [address] [id number] [address] [place] [phone] Jan, [facility] [address] [id number] [address] [place] [phone] Dec, [facility] [address] [id number] [address] [place] [phone] Nov, [facility] [address] [id number] [address] [place] [phone] Nov, [facility] [address] [id number] [address] [place] [phone] Nov, Attention deficit hyperactiv ity disorder F90.9 ; Intermittent explosive disorder F63.81 and Bipolar disorder F31.9 [facility] [address] [id number] [address] [place] [phone] Oct, [facility] [address] [id number] [address] [place] [id number] Oct, [facility] [address] [id number] [address] [place] [id number] Sep, [facility] [address] [id number] [address] [place] [phone] Aug, [facility] [address] [id number] [address] [place] [phone] Jul, [facility] [address] [id number] [address] [place] [phone] Jul, [facility] [address] [id number] [address] [place] [id number] Jul, Anxiety, generalized 300.02 ; Bipolar disorder, unspecified 296.80 ; 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.00 ; 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 and Impulse control disorder, unspecified 312.30 [facility] [address] [id number] [address] [place] [phone] Jul, [facility] [address] [id number] [address] [place] [phone] Jun, [facility] [address] [id number] [address] [place] [phone] May, [facility] [address] [id number] [address] [place] [phone] Apr, [facility] [address] [id number] [address] [place] [phone] Apr, Bipolar disorder, unspecifie d 296.80 ; Generalized anxiety disorder 300.02 and 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.00 [facility] [address] [id number] [address] [place] [phone] Apr, [facility] [address] [id number] [address] [place] [phone] March, [facility] [address] [id number] [address] [place] [phone] March, [facility] [address] [id number] [address] [place] [phone] March, [facility] [address] [id number] [address] [place] [phone] March, [facility] [address] [id number] [address] [place] [phone] Feb, [facility] [address] [id number] [address] [place] [phone] Feb, [facility] [address] [id number] [address] [place] [phone] Jan, [facility] [address] [id number] [address] [place] [address], [place] [address] Jan, [facility] [address] [id number] [address] [place] [address], [place] [address] Jan, [facility] [address] [id number] [address] [place] [address], [place] [address] Jan, [facility] [address] [id number] [address] [place] [address], [place] [address] Jan, [facility] [address] [id number] [address] [place] [address], [place] [address] Dec, [facility] [address] [id number] [address] [place] [address], [place] [address] Dec, [facility] [address] [id number] [address] [place] [address], [place] [address] Nov, [facility] [address] [id number] [address] [place] [address], [place] [address] Nov, [facility] [address] [id number] [address] [place] [address], [place] [address] Nov, [facility] [address] [id number] [address] [place] [address], [place] [address] Oct, [facility] [address] [id number] [address] [place] [address], [place] [address] Oct, [facility] [address] [id number] [address] [place] [address], [place] [address] Oct, [facility] [address] [id number] [address] [place] [address], [place] [address] Oct, [facility] [address] [id number] [address] [place] [address], [place] [address] Oct, [facility] [address] [id number] [address] [place] [address], [place] [address] Oct, [facility] [address] [id number] [address] [place] [address], [place] [address] Sep, [facility] [address] [id number] [address] [place] [address], [place] [address] Sep, [facility] [address] [id number] [address] [place] [address], [place] [address] Sep, [facility] [address] [id number] [address] [place] [address], [place] [address] Aug, [facility] [address] [id number] [address] [place] [address], [place] [address] Aug, [facility] [address] [id number] [address] [place] [address], [place] [address] Jul, [facility] [address] [id number] [address] [place] [address], [place] [address] Jul, [facility] [address] [id number] [address] [place] [address], [place] [address] Jun, [facility] [address] [id number] [address] [place] [address], [place] [address] Jun, [facility] [address] [id number] [address] [place] [address], [place] [address] Jun, [facility] [address] [id number] [address] [place] [address], [place] [address] Jun, [facility] [address] [id number] [address] [place] [address], [place] [address] May, [facility] [address] [id number] [address] [place] [address], [place] [address] May, [facility] [address] [id number] [address] [place] [address], [place] [address] May, [facility] [address] [id number] [address] [place] [address], [place] [address] Apr, [facility] [address] [id number] [address] [place] [address], [place] [address] Apr, [facility] [address] [id number] [facility] [place] [address] Apr, [facility] [address] [id number] [address] [place] [address], [place] [address] Apr, [facility] [address] [id number] [facility] [place] [address] March, [facility] [address] [id number] [address] [place] [address], [place] [address] March, [facility] [address] [id number] [address] [place] [address], [place] [address] March, [facility] [address] [id number] [address] [place] [address], [place] [address] March, [facility] [address] [id number] [address] [place] [address], [place] [address] Feb, [facility] [address] [id number] [address] [place] [address], [place] [address] Feb, [facility] [address] [id number] [address] [place] [address], [place] [address] Jan, [facility] [address] [id number] [address] [place] [address], [place] [address] Jan, [facility] [address] [id number] [address] [place] [address], [place] [address] Jan, [facility] [address] [id number] [address] [place] [address], [place] [address] Jan, [facility] [address] [id number] [address] [place] [address], [place] [address] Jan, [facility] [address] [id number] [address] [place] [address], [place] [address] Jan, [facility] [address] [id number] [address] [place] [address], [place] [address] Jan, [facility] [address] [id number] [address] [place] [address], [place] [address] Jan, [facility] [address] [id number] [address] [place] [address], [place] [address] Dec, [facility] [address] [id number] [address] [place] [address], [place] [address] Dec, [facility] [address] [id number] [address] [place] [address], [place] [address] Dec, [facility] [address] [id number] [address] [place] [address], [place] [address] Dec, [facility] [address] [id number] [address] [place] [address], [place] [address] Nov, [facility] [address] [id number] [address] [place] [address], [place] [address] Nov, [facility] [address] [id number] [address] [place] [address], [place] [address] Oct, [facility] [address] [id number] [address] [place] [address], [place] [address] Oct, [facility] [address] [id number] [address] [place] [address], [place] [address] Oct, [facility] [address] [id number] [address] [place] [address], [place] [address] Oct, [facility] [address] [id number] [address] [place] [address], [place] [address] Sep, [facility] [address] [id number] [address] [place] [address], [place] [address] Sep, [facility] [address] [id number] [address] [place] [address], [place] [address] Sep, [facility] [address] [id number] [address] [place] [address], [place] [address] Sep, [facility] [address] [id number] [address] [place] [address], [place] [address] Aug, [facility] [address] [id number] [address] [place] [address], [place] [address] 10 Aug, 2013 [facility] [address] [id number] [address] [place] [address], [place] [address] Aug, [facility] [address] [id number] [address] [place] [address], [place] [address] Jul, [facility] [address] [id number] [address] [place] [address], [place] [address] Jul, [facility] [address] [id number] [address] [place] [address], [place] [address] Jun, [facility] [address] [id number] [address] [place] [address], [place] [address] Jun, [facility] [address] [id number] [address] [place] [address], [place] [address] May, [facility] [address] [id number] [address] [place] [address], [place] [address] May, [facility] [address] [id number] [address] [place] [address], [place] [address] Apr, [facility] [address] [id number] [address] [place] [address], [place] [address] March, [facility] [address] [id number] [address] [place] [address], [place] [address] March, [facility] [address] [id number] [address] [place] [address], [place] [address] Feb, [facility] [address] [id number] [address] [place] [address], [place] [address] Jan, [facility] [address] [id number] [address] [place] [address], [place] [address] Jan, [facility] [address] [id number] [address] [place] [address], [place] [address] Dec, [facility] [address] [id number] [address] [place] [address], [place] [address] Dec, [facility] [address] [id number] [address] [place] [address], [place] [address] Nov, [facility] [address] [id number] [address] [place] [address], [place] [address] Nov, [facility] [address] [id number] [address] [place] [address], [place] [address] Nov, [facility] [address] [id number] [address] [place] [address], [place] [address] Nov, [facility] [address] [id number] [address] [place] [address], [place] [address] Nov, [facility] [address] [id number] [address] [place] [address], [place] [address] Oct, [facility] [address] [id number] [address] [place] [address], [place] [address] Oct, [facility] [address] [id number] [address] [place] [address], [place] [address] Oct, [facility] [address] [id number] [address] [place] [address], [place] [address] Oct, [facility] [address] [id number] [address] [place] [address], [place] [address] Oct, [facility] [address] [id number] [address] [place] [address], [place] [address] Oct, [facility] [address] [id number] [address] [place] [address], [place] [address] 05 Oct, 2012 [facility] [address] [id number] [address] [place] [address], [place] [address] Oct, [facility] [address] [id number] [address] [place] [address], [place] [address] Sep, [facility] [facility] [address] [id number] [address] [place] [address], [place] [address] Sep, [facility] [address] [id number] [address] [place] [id number] Sep, [facility] [address] [id number] [address] [place] [address], [place] [address] Aug, [facility] [address] [id number] [address] [place] [address], [place] [address] 17 Aug, 2012 [facility] [address] [id number] [address] [place] [address], [place] [address] Aug, [facility] [address] [id number] [address] [place] [address], [place] [address] Aug, [facility] [address] [id number] [address] [place] [address], [place] [address] Aug, [facility] [address] [id number] [address] [place] [address], [place] [address] Jul, [facility] [address] [id number] [address] [place] [address], [place] [address] Jul, [facility] [address] [id number] [address] [place] [address], [place] [address] Jun, [facility] [address] [id number] [address] [place] [address], [place] [address] May, [facility] [address] [id number] [address] [place] [address], [place] [address] May, [facility] [address] [id number] [address] [place] [address], [place] [address] Apr, [facility] [address] [id number] [address] [place] [address], [place] [address] March, [facility] [address] [id number] [address] [place] [address], [place] [address] March, [facility] [address] [id number] [address] [place] [address], [place] [address] March, [facility] [address] [id number] [address] [place] [address], [place] [address] March, [facility] [address] [id number] [address] [place] [address], [place] [address] 10 Feb, 2012 [facility] [address] [id number] [address] [place] [address], [place] [address] 05 Feb, 2012 [facility] [address] [id number] [address] [place] [address], [place] [address] Jan, [facility] [address] [id number] [address] [place] [address], [place] [address] 10 Dec, 2011 [facility] [address] [id number] [address] [place] [address], [place] [address] 08 Dec, 2011 [facility] [address] [id number] [address] [place] [address], [place] [address] Dec, [facility] [address] [id number] [address] [place] [address], [place] [address] Nov, [facility] [address] [id number] [address] [place] [address], [place] [address] Nov, [facility] [address] [id number] [address] [place] [address], [place] [address] Nov, [facility] [address] [id number] [address] [place] [address], [place] [address] Oct, [facility] [address] [id number] [address] [place] [address], [place] [address] Sep, [facility] [address] [id number] [address] [place] [address], [place] [address] Aug, [facility] [address] [id number] [address] [place] [address], [place] [address] Aug, [facility] [address] [id number] [address] [place] [address], [place] [address] May, [facility] [address] [id number] [address] [place] [address], [place] [address] Sep, [facility] [address] [id number] [address] [address] Sep, IMMUNIZATIONS No Known Immunizations SOCIAL HISTORY Never Assessed REASON FOR VISIT f/CARLYN swanson PLAN OF CARE Activity Details Follow Up 3 Months, prn Reason: VITAL SIGNS Height 74.5 in 2018-06-01 Weight 281.4 lbs 2018-06-01 Heart Rate 79 bpm 2018-06-01 Respiratory Rate 18 2018-06-01 BMI 35.64 kg/m2 2018-06-01 Blood pressure systolic 100 mmHg 2018-06-01 Blood pressure diastolic 82 mmHg 2018-06-01 MEDICATIONS Medication Instructions Dosage Frequency Start Date End Date Duration S tatus Clonidine HCl 0.1 Orally one tablet in the mor chleo, 2 tablets at 2pm and 1 tablet at bedtime 1 tablet 30 Not-Zenon ing Clonidine HCl 0.1 MG Orally one tablet in the mor chloe, 2 tablets at 2pm and 1 tablet at bedtime 1 tablet March, Activ e Fluvoxamine Maleate 100 mg TAKE THREE TABLETS BY MOUTH EVERY NIGHT AT BEDTIME Active Rozerem 8 mg TAKE ONE TABLET BY MOUTH EVERY NIGHT AT BEDTIME Active Trileptal 300 MG Orally Twice a day 1 tablet 12h March, 30 day(s) Not-Taking Seroquel 100 MG Orally Once a day 1 tablet 24h 30 da ys Active Vyvanse 70 MG Orally Once a day 1 capsule in the morning 24h 21 Apr, 2018 Active Trileptal 300 mg Orally 3 times a day 1 tablet 8h Active Zyprexa 5 MG Orally at bedtime 1 tablet 14 days Active RESULTS No Results PROCEDURES No Known procedures INSTRUCTIONS MEDICATIONS ADMINISTERED No Known Medications MEDICAL (GENERAL) HISTORY Type Description Date Medical History bipolar Medical History adhd Medical History anxiety
--- OUTSIDE RECORDS SUMMARY | 2020-03-18 15:33 | XMS REPORT ---
Author Author Jose Cruz FELDMAN CARLOS Organization [facility] Address [address] [place] [address] Care Team Providers Care Blunger Name Role Phone FRANCIAANGIECARLOS Unavailable PROBLEMS Type Condition ICD9-CM Code POX63-FS Code Onset Dates Condition S tatus SNOMED Code Problem Bipolar disorder, unspecified 296.80 Active 08000911 Problem Bipolar disorder F31.9 Active 137 97075 Problem Bipolar I disorder, most recent episode (or current) mixed, moderate 296.62 Active 154285500 Problem Encounter for long-term (current) use of other medications V58.69 Active 475264882 Problem 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 Ac tive 34900920 Problem 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 314.00 Active 21931688 Problem Generalized anxiety disorder 300.02 A ctive 21370930 Problem Attention-deficit hyperactiv ity disorder, predominantly inattentive type F90.0 Active 77078794 Problem Intellectual disability F79 Active 08376061 Problem Attention deficit hyperactivity disorder F90.9 Active 973300959 Problem Intermittent explosive disorder F63.81 Active 13999577 Problem Moderate intellectual disability F71 Active 59501785 Problem Bipolar disorder, currently in remission, most recent episode unspecified F31.70 Active 42066632 ALLERGIES No Information ENCOUNTERS Encounter Location Date Diagnosis [facility] [address] [facility] [id number] [address] [place] [address] Jun, [facility] [address] [facility] [id number] [address] [place] [address] Jun, Bipolar disorder, currently in remission, most recent episode unspecified F31.70 [facility] [address] [id number] [address] [place] [address] [id number] Jun, Dental examination Z01.20 an d Dental caries K02.9 [facility] [address] [facility] [id number] [address] [place] [address] May, Bipolar disorder, currently in remission, most recent episode unspecified F31.70 [facility] [address] [id number] [address] [place] [address] May, Bipolar disorder, currently in remission, most recent episode unspecified F31.70 [facility] [address] [id number] [address] [place] [address] May, Bipolar disorder, currently in remission, most recent episode unspecified F31.70 ; Moderate intellectual disability F71 and Attention-deficit hyperactivity disorder, predominantly inattentive type F90.0 [facility] [address] [id number] [address] [place] [address] Apr, Bipolar disorder, unspecifie d F31.9 [facility] [address] [id number] [address] [place] [address] Apr, [facility] [address] [id number] [address] [place] [address] Apr, [facility] [address] [id number] [address] [place] [phone] Apr, [facility] [address] [id number] [address] [place] [address] March, [facility] [address] [id number] [address] [place] [address] March, Bipolar disorder, currently in remission, most recent episode unspecified F31.70 ; Moderate intellectual disability F71 and Attention-deficit hyperactivity disorder, predominantly inattentive type F90.0 [facility] [address] [id number] [address] [place] [address] Feb, [facility] [address] [id number] [address] [place] [address] [id number] Feb, Dental examination Z01.20 [facility] [address] [id number] [address] [place] [phone] Jan, [facility] [address] [id number] [address] [place] [address] Jan, [facility] [address] [id number] [address] [place] [address] Dec, [facility] [address] [id number] [address] [place] [address] Nov, [facility] [address] [id number] [address] [place] [address] [id number] Nov, Encounter for dental exam an d cleaning w/o abnormal findings Z01.20 [facility] [address] [id number] [address] [place] [address] [id number] Nov, Dental examination Z01.20 [facility] [address] [id number] [address] [place] [address] Oct, [facility] [address] [id number] [address] [place] [address] Oct, Bipolar disorder, currently in remission, most recent episode unspecified F31.70 ; Moderate intellectual disability F71 and Attention-deficit hyperactivity disorder, predominantly inattentive type F90.0 [facility] [address] [id number] [address] [place] [address] Sep, [facility] [address] [id number] [address] [place] [address] Sep, [facility] [address] [id number] [address] [place] [address] Aug, [facility] [address] [id number] [address] [place] [address] Aug, Attention-deficit hyperactiv ity disorder, predominantly inattentive type F90.0 ; Moderate intellectual disability 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 and Bipolar disorder F31.9 [facility] [address] [id number] [address] [place] [address] [id number] Jul, Dental examination Z01.20 an d Dental caries K02.9 [facility] [address] [id number] [address] [place] [id number] 05 Jul, 2017 [facility] [address] [id number] [address] [place] [address] Jun, Bipolar disorder F31.9 ; Att ention-deficit hyperactivity disorder, predominantly inattentive type F90.0 and Moderate intellectual disability F71 [facility] [address] [id number] [address] [place] [address] 11 Jun, 2017 [facility] [address] [facility] [id number] [address] [place] [address] 17 May, 2017 [facility] [address] [facility] [id number] [address] [place] [address] Apr, [facility] [address] [facility] [id number] [address] [place] [address] March, Intermittent explosive disor jocelyn F63.81 ; Attention deficit hyperactivity disorder F90.9 and Bipolar disorder F31.9 [facility] [address] [id number] [address] [place] [address] Feb, [facility] [address] [id number] [address] [place] [address] Jan, [facility] [address] [facility] [id number] [address] [place] [address] 13 Dec, 2016 Encounter for immunization Z 23 [facility] [address] [facility] [id number] [address] [place] [address] 13 Dec, 2016 Intermittent explosive disor jocelyn F63.81 ; Attention deficit hyperactivity disorder F90.9 and Bipolar disorder, currently in remission, most recent episode unspecified F31.70 [facility] [address] [facility] [id number] [address] [place] [address] Nov, [facility] [address] [facility] [id number] [address] [place] [address] Oct, [facility] [address] [facility] [id number] [address] [place] [address] Oct, [facility] [address] [id number] [address] [place] [address] [id number] Oct, Dental examination Z01.20 [facility] [address] [id number] [address] [place] [address] Sep, [facility] [address] [facility] [id number] [address] [place] [address] Sep, [facility] [address] [facility] [id number] [address] [place] [address] Sep, Intermittent explosive disor jocelyn F63.81 ; Bipolar disorder F31.9 and Attention deficit hyperactivity disorder F90.9 [facility] [address] [id number] [address] [place] [address] Aug, [facility] [address] [facility] [id number] [address] [place] [address] Aug, [facility] [address] [facility] [id number] [address] [place] [address] Aug, [facility] [address] [facility] [id number] [address] [place] [address] Aug, Attention deficit hyperactiv ity disorder F90.9 [facility] [address] [id number] [address] [place] [address] Jul, [facility] [address] [facility] [id number] [address] [place] [address] Jun, [facility] [address] [facility] [id number] [address] [place] [address] May, [facility] [address] [id number] [address] [place] [address] Apr, [facility] [address] [facility] [id number] [address] [place] [address] Apr, Bipolar disorder F31.9 ; Att ention deficit hyperactivity disorder F90.9 and Intermittent explosive disorder F63.81 [facility] [address] [facility] [id number] [address] [place] [address] March, [facility] [address] [id number] [address] [place] [address] Feb, [facility] [address] [id number] [address] [place] [address] Feb, [facility] [address] [id number] [address] [place] [address] Jan, [facility] [address] [id number] [address] [place] [id number] Jan, [facility] [address] [id number] [address] [place] [address] Dec, [facility] [address] [id number] [address] [place] [address] Nov, [facility] [address] [facility] [id number] [address] [place] [address] Nov, [facility] [address] [id number] [address] [place] [address] Nov, Attention deficit hyperactiv ity disorder F90.9 ; Intermittent explosive disorder F63.81 and Bipolar disorder F31.9 [facility] [address] [id number] [address] [place] [address] Oct, [facility] [address] [facility] [id number] [address] [place] [id number] Oct, [facility] [address] [id number] [address] [place] [address] Sep, [facility] [address] [id number] [address] [place] [address] Aug, [facility] [address] [id number] [address] [place] [address] Jul, [facility] [address] [id number] [address] [place] [address] Jul, [facility] [address] [id number] [address] [place] [address] Jul, Anxiety, generalized 300.02 ; Bipolar disorder, unspecified 296.80 ; 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.00 ; 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 and Impulse control disorder, unspecified 312.30 [facility] [address] [id number] [address] [place] [address] Jul, [facility] [address] [id number] [address] [place] [address] Jun, [facility] [address] [id number] [address] [place] [address] May, [facility] [address] [id number] [address] [place] [address] Apr, [facility] [address] [id number] [address] [place] [address] Apr, Bipolar disorder, unspecifie d 296.80 ; Generalized anxiety disorder 300.02 and 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.00 [facility] [address] [id number] [address] [place] [id number] Apr, [facility] [address] [id number] [address] [place] [id number] March, [facility] [address] [id number] [address] [place] [address] March, [facility] [address] [id number] [address] [place] [id number] March, [facility] [address] [id number] [address] [place] [id number] March, [facility] [address] [id number] [address] [place] [address] Feb, [facility] [address] [id number] [address] [place] [address] Feb, [facility] [address] [id number] [address] [place] [address] Jan, [facility] [address] [id number] [address] [place] [address], [place] [address] Jan, 2014 [facility] [address] [id number] [address] [place] [address], [place] [address] Jan, 2014 [facility] [address] [id number] [address] [place] [address], [place] [address] Jan, [facility] [address] [id number] [address] [place] [address], [place] [address] Jan, [facility] [address] [id number] [address] [place] [address], [place] [address] Dec, [facility] [address] [id number] [address] [place] [address], [place] [address] Dec, [facility] [address] [id number] [address] [place] [address], [place] [address] Nov, [facility] [address] [id number] [address] [place] [address], [place] [address] Nov, [facility] [address] [id number] [address] [place] [address], [place] [address] Nov, [facility] [address] [id number] [address] [place] [address], [place] [address] Oct, [facility] [address] [id number] [address] [place] [address], [place] [address] Oct, [facility] [address] [id number] [address] [place] [address], [place] [address] Oct, [facility] [address] [id number] [address] [place] [address], [place] [address] Oct, [facility] [address] [id number] [address] [place] [address], [place] [address] Oct, [facility] [address] [id number] [address] [place] [address], [place] [address] Oct, [facility] [address] [id number] [address] [place] [address], [place] [address] Sep, [facility] [address] [id number] [address] [place] [address], [place] [address] Sep, [facility] [address] [id number] [address] [place] [address], [place] [address] Sep, [facility] [address] [id number] [address] [place] [address], [place] [address] Aug, [facility] [address] [id number] [address] [place] [address], [place] [address] Aug, [facility] [address] [id number] [address] [place] [address], [place] [address] Jul, [facility] [address] [id number] [address] [place] [address], [place] [address] Jul, [facility] [address] [id number] [address] [place] [address], [place] [address] Jun, [facility] [address] [id number] [address] [place] [address], [place] [address] Jun, [facility] [address] [id number] [address] [place] [address], [place] [address] Jun, [facility] [address] [id number] [address] [place] [address], [place] [address] Jun, [facility] [address] [id number] [address] [place] [address], [place] [address] May, [facility] [address] [id number] [address] [place] [address], [place] [address] May, [facility] [address] [id number] [address] [place] [address], [place] [address] May, [facility] [address] [id number] [address] [place] [address], [place] [address] Apr, [facility] [address] [id number] [address] [place] [address], [place] [address] Apr, [facility] [address] [id number] [facility] [place] [address] Apr, [facility] [address] [id number] [facility] [place] [address] Apr, [facility] [address] [id number] [facility] [place] [address] March, [facility] [address] [id number] [address] [place] [address], [place] [address] March, [facility] [address] [id number] [address] [place] [address], [place] [address] March, [facility] [address] [id number] [address] [place] [address], [place] [address] March, [facility] [address] [id number] [address] [place] [address], [place] [address] Feb, [facility] [address] [id number] [address] [place] [address], [place] [address] Feb, [facility] [address] [id number] [address] [place] [address], [place] [address] Jan, [facility] [address] [id number] [address] [place] [address], [place] [address] Jan, [facility] [address] [id number] [address] [place] [address], [place] [address] Jan, [facility] [address] [id number] [address] [place] [address], [place] [address] Jan, [facility] [address] [id number] [address] [place] [address], [place] [address] Jan, [facility] [address] [id number] [address] [place] [address], [place] [address] Jan, [facility] [address] [id number] [address] [place] [address], [place] [address] Jan, [facility] [address] [id number] [address] [place] [address], [place] [address] Jan, [facility] [address] [id number] [facility] [place] [address] Dec, [facility] [address] [id number] [address] [place] [address], [place] [address] Dec, [facility] [address] [id number] [address] [place] [address], [place] [address] Dec, [facility] [address] [id number] [address] [place] [address], [place] [address] Dec, [facility] [address] [id number] [address] [place] [address], [place] [address] Nov, [facility] [address] [id number] [address] [place] [address], [place] [address] Nov, [facility] [address] [id number] [address] [place] [address], [place] [address] Oct, [facility] [address] [id number] [address] [place] [address], [place] [address] Oct, [facility] [address] [id number] [address] [place] [address], [place] [address] Oct, [facility] [address] [id number] [address] [place] [address], [place] [address] Oct, [facility] [address] [id number] [address] [place] [address], [place] [address] Sep, [facility] [address] [id number] [address] [place] [address], [place] [address] Sep, [facility] [address] [id number] [address] [place] [address], [place] [address] Sep, [facility] [address] [id number] [address] [place] [address], [place] [address] Sep, [facility] [address] [id number] [address] [place] [address], [place] [address] Aug, [facility] [address] [id number] [address] [place] [address], [place] [address] 10 Aug, 2013 [facility] [address] [id number] [address] [place] [address], [place] [address] 07 Aug, 2013 [facility] [address] [id number] [address] [place] [address], [place] [address] Jul, [facility] [address] [id number] [address] [place] [address], [place] [address] Jul, [facility] [address] [id number] [address] [place] [address], [place] [address] Jun, [facility] [address] [id number] [address] [place] [address], [place] [address] Jun, [facility] [address] [id number] [address] [place] [address], [place] [address] May, [facility] [address] [id number] [address] [place] [address], [place] [address] May, [facility] [address] [id number] [address] [place] [address], [place] [address] Apr, [facility] [address] [id number] [address] [place] [address], [place] [address] March, [facility] [address] [id number] [address] [place] [address], [place] [address] March, [facility] [address] [id number] [address] [place] [address], [place] [address] Feb, [facility] [address] [id number] [address] [place] [address], [place] [address] Jan, [facility] [address] [id number] [address] [place] [address], [place] [address] Jan, [facility] [address] [id number] [address] [place] [address], [place] [address] Dec, [facility] [address] [id number] [address] [place] [address], [place] [address] Dec, [facility] [address] [id number] [address] [place] [address], [place] [address] Nov, [facility] [address] [id number] [address] [place] [address], [place] [address] Nov, [facility] [address] [id number] [address] [place] [address], [place] [address] Nov, [facility] [address] [id number] [address] [place] [address], [place] [address] Nov, [facility] [address] [id number] [address] [place] [address], [place] [address] Nov, [facility] [address] [id number] [address] [place] [address], [place] [address] Oct, [facility] [address] [id number] [address] [place] [address], [place] [address] Oct, [facility] [address] [id number] [address] [place] [address], [place] [address] Oct, [facility] [address] [id number] [address] [place] [address], [place] [address] Oct, [facility] [address] [id number] [address] [place] [address], [place] [address] Oct, [facility] [address] [id number] [address] [place] [address], [place] [address] Oct, [facility] [address] [id number] [address] [place] [address], [place] [address] Oct, [facility] [address] [id number] [address] [place] [address], [place] [address] Oct, [facility] [address] [id number] [address] [place] [address], [place] [address] Sep, [facility] [address] [id number] [address] [place] [address], [place] [address] Sep, [facility] [address] [id number] [address] [place] [address], [place] [address] Sep, [facility] [address] [id number] [address] [place] [address], [place] [address] Aug, [facility] [address] [id number] [address] [place] [address], [place] [address] Aug, [facility] [address] [id number] [address] [place] [address], [place] [address] Aug, [facility] [address] [id number] [address] [place] [address], [place] [address] Aug, [facility] [address] [id number] [address] [place] [address], [place] [address] Aug, [facility] [address] [id number] [address] [place] [address], [place] [address] Jul, [facility] [address] [id number] [address] [place] [address] [address] Jul, [facility] [address] [id number] [address] [place] [address], [place] [address] Jun, [facility] [address] [id number] [address] [place] [address], [place] [address] May, [facility] [address] [id number] [address] [place] [address], [place] [address] May, [facility] [address] [id number] [address] [place] [address], [place] [address] Apr, [facility] [address] [id number] [address] [place] [address], [place] [address] March, [facility] [address] [id number] [address] [place] [address], [place] [address] March, [facility] [address] [id number] [address] [place] [address], [place] [address] March, [facility] [address] [id number] [address] [place] [address], [place] [address] March, [facility] [address] [id number] [address] [place] [address], [place] [address] 10 Feb, 2012 [facility] [address] [id number] [address] [place] [address], [place] [address] Feb, [facility] [address] [id number] [address] [place] [address], [place] [address] Jan, [facility] [address] [id number] [address] [place] [address], [place] [address] 10 Dec, 2011 [facility] [address] [id number] [address] [place] [address], [place] [address] 08 Dec, 2011 [facility] [address] [id number] [address] [place] [address], [place] [address] Dec, [facility] [address] [id number] [address] [place] [address], [place] [address] Nov, [facility] [address] [id number] [address] [place] [address], [place] [address] Nov, [facility] [address] [id number] [address] [place] [address], [place] [address] Nov, [facility] [address] [id number] [address] [place] [address], [place] [address] Oct, [facility] [address] [id number] [address] [place] [address], [place] [address] Sep, [facility] [address] [id number] [address] [place] [address], [place] [address] Aug, [facility] [address] [id number] [address] [place] [address], [place] [address] Aug, [facility] [address] [id number] [address] [place] [address], [place] [address] May, [facility] [address] [id number] [address] [place] [address], [place] [address] Sep, [facility] [address] [id number] [address] [place] [address], [place] [address] Sep, IMMUNIZATIONS No Known Immunizations SOCIAL HISTORY Never Assessed REASON FOR VISIT Refill request PLAN OF CARE VITAL SIGNS MEDICATIONS Unknown Medications RESULTS No Results PROCEDURES No Known procedures INSTRUCTIONS MEDICATIONS ADMINISTERED No Known Medications MEDICAL (GENERAL) HISTORY Type Description Date Medical History bipolar Medical History adhd Medical History anxiety
--- OUTSIDE RECORDS SUMMARY | 2020-03-18 15:34 | XMS REPORT ---
Author Author Jose Cruz FELDMAN CARLOS [facility] Address [address] [place] [address] Care Team Providers Care Acid Filler Name Role Phone LIZETANGIE ANAYAYLA Unavailable PROBLEMS Type Condition ICD9-CM Code [id number] Code Onset Dates Condition S tatus SNOMED Code Problem Bipolar disorder, unspecified 296.80 Active 15036308 Problem Bipolar disorder F31.9 Active 137 67380 Problem Bipolar I disorder, most recent episode (or current) mixed, moderate 296.62 Active 347792603 Problem Encounter for long-term (current) use of other medications V58.69 Active 355456902 Problem 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 Ac tive 06827205 Problem 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 314.00 Active 62217642 Problem Generalized anxiety disorder 300.02 A ctive 53330635 Problem Attention-deficit hyperactiv ity disorder, predominantly inattentive type F90.0 Active 03327782 Problem Intellectual disability F79 Active 63530189 Problem Attention deficit hyperactivity disorder F90.9 Active 750275455 Problem Intermittent explosive disorder F63.81 Active 15935967 Problem Moderate intellectual disability F71 Active 19432797 Problem Bipolar disorder, currently in remission, most recent episode unspecified F31.70 Active 16461865 ALLERGIES No Information ENCOUNTERS Encounter Location Date Diagnosis [place] [id number] [place] [address] [id number] Jun, Dental examination Z01.20 and Dental car ies K02.9 [facility] [address] [facility] [id number] [address] [place] [address] May, Bipolar disorder, currently in remission, most recent episode unspecified F31.70 [facility] [address] [facility] [id number] [address] [place] [address] May, Bipolar disorder, currently in remission, most recent episode unspecified F31.70 [facility] [address] [id number] [address] [place] [address] May, Bipolar disorder, currently in remission, most recent episode unspecified F31.70 ; Moderate intellectual disability F71 and Attention-deficit hyperactivity disorder, predominantly inattentive type F90.0 [facility] [address] [id number] [address] [place] [address] Apr, Bipolar disorder, unspecifie d F31.9 [facility] [address] [id number] [address] [place] [address] Apr, [facility] [address] [id number] [address] [place] [address] Apr, [facility] [address] [id number] [address] [place] [address] Apr, [facility] [address] [id number] [address] [place] [address] March, [facility] [address] [id number] [address] [place] [address] March, Bipolar disorder, currently in remission, most recent episode unspecified F31.70 ; Moderate intellectual disability F71 and Attention-deficit hyperactivity disorder, predominantly inattentive type F90.0 [facility] [address] [id number] [address] [place] [address] Feb, [facility] [address] [id number] [address] [place] [address] [id number] Feb, Dental examination Z01.20 [facility] [address] [id number] [address] [place] [address] Jan, [facility] [address] [id number] [address] [place] [address] Jan, [facility] [address] [id number] [address] [place] [address] Dec, [facility] [address] [id number] [address] [place] [address] Nov, [facility] [address] [id number] [address] [place] [address] [id number] Nov, Dental examination Z01.20 [facility] [address] [id number] [address] [place] [address] [id number] Nov, Encounter for dental exam an d cleaning w/o abnormal findings Z01.20 [facility] [address] [id number] [address] [place] [address] Oct, [facility] [address] [id number] [address] [place] [address] Oct, Bipolar disorder, currently in remission, most recent episode unspecified F31.70 ; Moderate intellectual disability F71 and Attention-deficit hyperactivity disorder, predominantly inattentive type F90.0 [facility] [address] [id number] [address] [place] [address] Sep, [facility] [address] [id number] [address] [place] [address] Sep, [facility] [address] [id number] [address] [place] [address] Aug, [facility] [address] [id number] [address] [place] [address] Aug, Attention-deficit hyperactiv ity disorder, predominantly inattentive type F90.0 ; Moderate intellectual disability F71 and Bipolar disorder F31.9 [facility] [address] [id number] [address] [place] [address] [id number] Jul, Dental examination Z01.20 an d Dental caries K02.9 [facility] [address] [id number] [address] [place] [address] Jul, [facility] [address] [id number] [address] [place] [address] Jun, Bipolar disorder F31.9 ; Att ention-deficit hyperactivity disorder, predominantly inattentive type F90.0 and Moderate intellectual disability F71 [facility] [address] [id number] [address] [place] [address] Jun, [facility] [address] [id number] [address] [place] [address] May, [facility] [address] [facility] [id number] [address] [place] [address] Apr, [facility] [address] [facility] [id number] [address] [place] [address] March, Intermittent explosive disor jocelyn F63.81 ; Attention deficit hyperactivity disorder F90.9 and Bipolar disorder F31.9 [facility] [address] [id number] [address] [place] [address] Feb, [facility] [address] [id number] [address] [place] [address] Jan, [facility] [address] [facility] [id number] [address] [place] [address] 13 Dec, 2016 Intermittent explosive disor jocelyn F63.81 ; Attention deficit hyperactivity disorder F90.9 and Bipolar disorder, currently in remission, most recent episode unspecified F31.70 [facility] [address] [id number] [address] [place] [address] 13 Dec, 2016 Encounter for immunization Z 23 [facility] [address] [id number] [address] [place] [address] Nov, [facility] [address] [facility] [id number] [address] [place] [address] Oct, [facility] [address] [id number] [address] [place] [address] Oct, [facility] [address] [id number] [address] [place] [id number] Oct, Dental examination Z01.20 [facility] [address] [id number] [address] [place] [address] Sep, [facility] [address] [facility] [id number] [address] [place] [address] Sep, [facility] [address] [id number] [address] [place] [address] Sep, Intermittent explosive disor jocelyn F63.81 ; Bipolar disorder F31.9 and Attention deficit hyperactivity disorder F90.9 [facility] [address] [id number] [address] [place] [address] Aug, [facility] [address] [id number] [address] [place] [address] Aug, [facility] [address] [id number] [address] [place] [address] Aug, [facility] [address] [id number] [address] [place] [address] Aug, Attention deficit hyperactiv ity disorder F90.9 [facility] [address] [id number] [address] [place] [address] Jul, [facility] [address] [id number] [address] [place] [address] Jun, [facility] [address] [id number] [address] [place] [address] May, [facility] [address] [id number] [address] [place] [address] Apr, [facility] [address] [id number] [address] [place] [address] Apr, Bipolar disorder F31.9 ; Att ention deficit hyperactivity disorder F90.9 and Intermittent explosive disorder F63.81 [facility] [address] [id number] [address] [place] [address] March, [facility] [address] [id number] [address] [place] [address] Feb, [facility] [address] [id number] [address] [place] [address] Feb, [facility] [address] [id number] [address] [place] [address] Jan, [facility] [address] [id number] [address] [place] [address] Jan, [facility] [address] [facility] [id number] [address] [place] [address] Dec, [facility] [address] [facility] [id number] [address] [place] [address] Nov, [facility] [address] [facility] [id number] [address] [place] [address] Nov, [facility] [address] [facility] [id number] [address] [place] [address] Nov, Attention deficit hyperactiv ity disorder F90.9 ; Intermittent explosive disorder F63.81 and Bipolar disorder F31.9 [facility] [address] [place] [id number] [address] [place] [address] Oct, [facility] [address] [place] [id number] [address] [place] [address] Oct, [facility] [address] [facility] [id number] [address] [place] [address] Sep, [facility] [address] [id number] [address] [place] [address] Aug, [facility] [address] [facility] [id number] [address] [place] [address] Jul, [facility] [address] [facility] [id number] [address] [place] [address] Jul, [facility] [address] [facility] [id number] [address] [place] [address] Jul, Anxiety, generalized 300.02 ; Bipolar disorder, unspecified 296.80 ; 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.00 ; 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 and Impulse control disorder, unspecified 312.30 [facility] [address] [place] [id number] [address] [place] [address] Jul, [facility] [address] [id number] [address] [place] [address] Jun, [facility] [address] [id number] [address] [place] [address] May, [facility] [address] [id number] [address] [place] [address] Apr, [facility] [address] [id number] [address] [place] [address] Apr, Bipolar disorder, unspecifie d 296.80 ; Generalized anxiety disorder 300.02 and 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.00 [facility] [address] [id number] [address] [place] [address] Apr, [facility] [address] [id number] [address] [place] [address] March, [facility] [address] [id number] [address] [place] [address] March, [facility] [address] [id number] [address] [place] [address] March, [facility] [address] [id number] [address] [place] [address] March, [facility] [address] [id number] [address] [place] [address] Feb, [facility] [address] [id number] [address] [place] [address] Feb, [facility] [address] [id number] [address] [place] [address] Jan, [facility] [address] [id number] [address] [place] [address] Jan, [facility] [address] [id number] [address] [place] [address] Jan, [facility] [address] [id number] [address] [place] [address] Jan, [facility] [address] [id number] [address] [place] [address], [place] [address] Jan, [facility] [address] [id number] [address] [place] [address], [place] [address] Dec, [facility] [address] [id number] [address] [place] [address], [place] [address] Dec, [facility] [address] [id number] [address] [place] [address], [place] [address] Nov, [facility] [address] [id number] [address] [place] [address], [place] [address] Nov, [facility] [address] [id number] [address] [place] [address], [place] [address] Nov, [facility] [address] [id number] [address] [place] [address], [place] [address] Oct, [facility] [address] [id number] [address] [place] [address], [place] [address] Oct, [facility] [address] [id number] [address] [place] [address], [place] [address] Oct, [facility] [address] [id number] [address] [place] [address], [place] [address] Oct, [facility] [address] [id number] [address] [place] [address], [place] [address] Oct, [facility] [address] [id number] [address] [place] [address], [place] [address] Oct, [facility] [address] [id number] [address] [place] [address], [place] [address] Sep, [facility] [address] [id number] [address] [place] [address], [place] [address] Sep, [facility] [address] [id number] [address] [place] [address], [place] [address] Sep, [facility] [address] [id number] [facility] [place] [address] Aug, [facility] [address] [id number] [address] [place] [address], [place] [address] Aug, [facility] [address] [id number] [address] [place] [address], [place] [address] Jul, [facility] [address] [id number] [address] [place] [address], [place] [address] Jul, [facility] [address] [id number] [address] [place] [address], [place] [address] Jun, [facility] [address] [id number] [address] [place] [address], [place] [address] Jun, [facility] [address] [id number] [address] [place] [address], [place] [address] Jun, [facility] [address] [id number] [address] [place] [address], [place] [address] Jun, [facility] [address] [id number] [address] [place] [address], [place] [address] May, [facility] [address] [id number] [address] [place] [address], [place] [address] May, [facility] [address] [id number] [address] [place] [address], [place] [address] May, [facility] [address] [id number] [address] [place] [address], [place] [address] Apr, [facility] [address] [id number] [address] [place] [address], [place] [address] Apr, [facility] [address] [id number] [address] [place] [address], [place] [address] Apr, [facility] [address] [id number] [address] [place] [address], [place] [address] 16 Apr, 2014 [facility] [address] [id number] [address] [place] [address], [place] [address] March, [facility] [address] [id number] [facility] [place] [address] March, [facility] [address] [id number] [address] [place] [address], [place] [address] March, [facility] [address] [id number] [address] [place] [address], [place] [address] March, [facility] [address] [id number] [address] [place] [address], [place] [address] Feb, [facility] [address] [id number] [address] [place] [address], [place] [address] Feb, [facility] [address] [id number] [address] [place] [address], [place] [address] Jan, [facility] [address] [id number] [address] [place] [address], [place] [address] Jan, [facility] [address] [id number] [address] [place] [address], [place] [address] Jan, [facility] [address] [id number] [address] [place] [address], [place] [address] Jan, [facility] [address] [id number] [address] [place] [address], [place] [address] Jan, [facility] [address] [id number] [address] [place] [address], [place] [address] Jan, [facility] [address] [id number] [address] [place] [address], [place] [address] Jan, [facility] [address] [id number] [address] [place] [address], [place] [address] Jan, [facility] [address] [id number] [address] [place] [address], [place] [address] Dec, [facility] [address] [id number] [address] [place] [address], [place] [address] Dec, [facility] [address] [id number] [address] [place] [address], [place] [address] Dec, [facility] [address] [id number] [address] [place] [address], [place] [address] Dec, [facility] [address] [id number] [address] [place] [address], [place] [address] Nov, [facility] [address] [id number] [address] [place] [address], [place] [address] Nov, [facility] [address] [id number] [address] [place] [address], [place] [address] Oct, [facility] [address] [id number] [address] [place] [address], [place] [address] Oct, [facility] [address] [id number] [address] [place] [address], [place] [address] Oct, [facility] [address] [id number] [address] [place] [address], [place] [address] Oct, [facility] [address] [id number] [address] [place] [address], [place] [address] Sep, [facility] [address] [id number] [address] [place] [address], [place] [address] Sep, [facility] [address] [id number] [address] [place] [address], [place] [address] Sep, [facility] [address] [id number] [address] [place] [address], [place] [address] Sep, [facility] [address] [id number] [address] [place] [address], [place] [address] Aug, [facility] [address] [id number] [address] [place] [address], [place] [address] Aug, [facility] [address] [id number] [address] [place] [address], [place] [address] Aug, [facility] [address] [id number] [address] [place] [address], [place] [address] Jul, [facility] [address] [id number] [address] [place] [address], [place] [address] Jul, [facility] [address] [id number] [address] [place] [address], [place] [address] Jun, [facility] [address] [id number] [address] [place] [address], [place] [address] Jun, [facility] [address] [id number] [address] [place] [address], [place] [address] May, [facility] [address] [id number] [address] [place] [address], [place] [address] May, [facility] [address] [id number] [address] [place] [address], [place] [address] Apr, [facility] [address] [id number] [address] [place] [address], [place] [address] March, [facility] [address] [id number] [address] [place] [address], [place] [address] March, [facility] [address] [id number] [address] [place] [address], [place] [address] Feb, [facility] [address] [id number] [address] [place] [address], [place] [address] Jan, [facility] [address] [id number] [address] [place] [address], [place] [address] Jan, [facility] [address] [id number] [address] [place] [address], [place] [address] Dec, [facility] [address] [id number] [address] [place] [address], [place] [address] Dec, [facility] [address] [id number] [address] [place] [address], [place] [address] Nov, [facility] [address] [id number] [address] [place] [address], [place] [address] Nov, [facility] [address] [id number] [address] [place] [address], [place] [address] 24 Nov, 2012 [facility] [address] [id number] [address] [place] [address], [place] [address] Nov, [facility] [address] [id number] [address] [place] [address], [place] [address] Nov, [facility] [address] [id number] [address] [place] [address], [place] [address] Oct, [facility] [address] [id number] [address] [place] [address], [place] [address] Oct, [facility] [address] [id number] [address] [place] [address], [place] [address] Oct, [facility] [address] [id number] [address] [place] [address], [place] [address] Oct, [facility] [address] [id number] [address] [place] [address], [place] [address] Oct, [facility] [address] [id number] [address] [place] [address], [place] [address] Oct, [facility] [address] [id number] [address] [place] [address], [place] [address] 05 Oct, 2012 [facility] [address] [id number] [address] [place] [address], [place] [address] Oct, [facility] [address] [id number] [address] [place] [address], [place] [address] Sep, [facility] [address] [id number] [address] [place] [address], [place] [address] Sep, [facility] [address] [id number] [address] [place] [address], [place] [address] Sep, [facility] [address] [id number] [address] [place] [address], [place] [address] Aug, [facility] [address] [id number] [address] [place] [address], [place] [address] Aug, [facility] [address] [id number] [address] [place] [address], [place] [address] Aug, [facility] [address] [id number] [address] [place] [address], [place] [address] Aug, [facility] [address] [id number] [address] [place] [address], [place] [address] Aug, [facility] [place] [address] [id number] [address] [place] [address], [place] [address] Jul, [facility] [address] [id number] [address] [place] [address], [place] [address] Jul, [facility] [address] [id number] [address] [place] [address], [place] [address] Jun, [facility] [address] [id number] [address] [place] [address], [place] [address] May, [facility] [address] [id number] [address] [place] [address], [place] [address] May, [facility] [address] [id number] [address] [place] [address], [place] [address] Apr, [facility] [address] [id number] [address] [place] [address], [place] [address] March, [facility] [address] [id number] [address] [place] [address], [place] [address] March, [facility] [address] [id number] [address] [place] [address], [place] [address] March, [facility] [address] [id number] [address] [place] [address], [place] [address] March, [facility] [address] [id number] [address] [place] [address], [place] [address] Feb, [facility] [address] [id number] [address] [place] [address], [place] [address] Feb, [facility] [address] [id number] [address] [place] [address] Jan, [facility] [address] [id number] [address] [place] [address] Dec, [facility] [address] [id number] [address] [place] [address] Dec, [facility] [address] [id number] [address] [place] [address] Dec, [facility] [address] [id number] [address] [place] [address] Nov, [facility] [address] [id number] [address] [place] [address] Nov, [facility] [address] [id number] [address] [place] [address] Nov, [facility] [address] [id number] [address] [place] [phone] Oct, [facility] [address] [id number] [address] [place] [address] Sep, [facility] [address] [id number] [address] [place] [address] Aug, [facility] [address] [id number] [address] [place] [phone] Aug, [facility] [address] [id number] [address] [place] [address] May, [facility] [address] [id number] [address] [place] [address] Sep, [facility] [address] [facility] [id number] [address] [place] [address] Sep, IMMUNIZATIONS No Known Immunizations SOCIAL HISTORY Never Assessed REASON FOR VISIT BH f/u FRANCISCO JAVIER PLAN OF CARE Activity Details Follow Up 4 Months, prn Reason: VITAL SIGNS Height 74.5 in 2018-03-30 Weight 278 lbs 2018-03-30 Heart Rate 80 bpm 2018-03-30 Respiratory Rate 20 2018-03-30 BMI 35.21 kg/m2 2018-03-30 Blood pressure systolic 118 mmHg 2018-03-30 Blood pressure diastolic 78 mmHg 2018-03-30 MEDICATIONS Medication Instructions Dosage Frequency Start Date End Date Duration S rené Trileptal 300 MG Orally Twice a day 1 tablet 12h March, 30 day(s) Active Fluvoxamine Maleate 100 mg TAKE THREE TABLETS BY MOUTH EVERY NIGHT AT BEDTIME Active Clonidine HCl 0.1 MG Orally one tablet in the mor chloe, 2 tablets at 2pm and 1 tablet at bedtime 1 tablet March, Activ e Vyvanse 70 MG Orally Once a day 1 capsule in the morning 24h Feb, Active Zyprexa 15 MG Orally Once a day at night 1 tablet 30 days Active Rozerem 8 mg TAKE ONE TABLET BY MOUTH EVERY NIGHT AT BEDTIME Active RESULTS No Results PROCEDURES No Known procedures INSTRUCTIONS MEDICATIONS ADMINISTERED No Known Medications MEDICAL (GENERAL) HISTORY Type Description Date Medical History bipolar Medical History adhd Medical History anxiety
--- OUTSIDE RECORDS SUMMARY | 2020-03-18 15:34 | XMS REPORT ---
Author Author Jose Cruz FELDMAN CARLOS [facility] Address [address] [place] [address] Care Team Providers Care Restaurant Assistant Name Role Phone LIZETANGIE ANAYAYLA Unavailable PROBLEMS Type Condition ICD9-CM Code LRG45-[id number] Code Onset Dates Condition S tatus SNOMED Code Problem Bipolar disorder, unspecified 296.80 Active 45344980 Problem Bipolar disorder F31.9 Active 137 17798 Problem Bipolar I disorder, most recent episode (or current) mixed, moderate 296.62 Active 845772453 Problem Encounter for long-term (current) use of other medications V58.69 Active 733245345 Problem 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 Ac tive 03124576 Problem 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 314.00 Active 55872899 Problem Generalized anxiety disorder 300.02 A ctive 68542175 Problem Attention-deficit hyperactiv ity disorder, predominantly inattentive type F90.0 Active 76622828 Problem Intellectual disability F79 Active 23037905 Problem Attention deficit hyperactivity disorder F90.9 Active 264699286 Problem Intermittent explosive disorder F63.81 Active 13725123 Problem Moderate intellectual disability F71 Active 89189065 Problem Bipolar disorder, currently in remission, most recent episode unspecified F31.70 Active 59219133 ALLERGIES No Information ENCOUNTERS Encounter Location Date Diagnosis [facility] [id number] [place] [id number] Jun, [facility] [address] [facility] [id number] [address] [place] [address] May, Bipolar disorder, currently in remission, most recent episode unspecified F31.70 [facility] [address] [facility] [id number] [address] [place] [address] May, Bipolar disorder, currently in remission, most recent episode unspecified F31.70 [facility] [address] [facility] [id number] [address] [place] [address] May, Bipolar disorder, currently in remission, most recent episode unspecified F31.70 ; Moderate intellectual disability F71 and Attention-deficit hyperactivity disorder, predominantly inattentive type F90.0 [facility] [address] [id number] [address] [place] [address] Apr, Bipolar disorder, unspecifie d F31.9 [facility] [address] [id number] [address] [place] [address] Apr, [facility] [address] [id number] [address] [place] [address] Apr, [facility] [address] [id number] [address] [place] [address] Apr, [facility] [address] [id number] [address] [place] [address] March, [facility] [address] [id number] [address] [place] [address] March, Bipolar disorder, currently in remission, most recent episode unspecified F31.70 ; Moderate intellectual disability F71 and Attention-deficit hyperactivity disorder, predominantly inattentive type F90.0 [facility] [address] [id number] [address] [place] [address] Feb, [facility] [address] [id number] [address] [place] [id number] Feb, Dental examination Z01.20 [facility] [address] [id number] [address] [place] [address] Jan, [facility] [address] [id number] [address] [place] [address] Jan, [facility] [address] [id number] [address] [place] [address] Dec, [facility] [address] [id number] [address] [place] [address] Nov, [facility] [address] [id number] [address] [place] [id number] Nov, Encounter for dental exam an d cleaning w/o abnormal findings Z01.[address] [facility] [address] [id number] [address] [place] [address] [id number] Nov, Dental examination Z01.20 [facility] [address] [id number] [address] [place] [address] Oct, [facility] [address] [id number] [address] [place] [address] Oct, Bipolar disorder, currently in remission, most recent episode unspecified F31.70 ; Moderate intellectual disability F71 and Attention-deficit hyperactivity disorder, predominantly inattentive type F90.0 [facility] [address] [id number] [address] [place] [address] Sep, [facility] [address] [id number] [address] [place] [address] Sep, [facility] [address] [id number] [address] [place] [address] Aug, [facility] [address] [id number] [address] [place] [address] Aug, Attention-deficit hyperactiv ity disorder, predominantly inattentive type F90.0 ; Moderate intellectual disability F71 and Bipolar disorder F31.[address] [facility] [address] [id number] [address] [place] [address] [id number] Jul, Dental examination Z01.20 an d Dental caries K02.9 [facility] [address] [id number] [address] [place] [address] Jul, [facility] [address] [facility] [id number] [address] [place] [address] Jun, Bipolar disorder F31.9 ; Att ention-deficit hyperactivity disorder, predominantly inattentive type F90.0 and Moderate intellectual disability F71 [facility] [address] [id number] [address] [place] [address] Jun, [facility] [address] [id number] [address] [place] [address] May, [facility] [address] [facility] [id number] [address] [place] [address] Apr, [facility] [address] [facility] [id number] [address] [place] [address] March, Intermittent explosive disor jocelyn F63.81 ; Attention deficit hyperactivity disorder F90.9 and Bipolar disorder F31.9 [facility] [address] [id number] [address] [place] [address] Feb, [facility] [address] [id number] [address] [place] [address] Jan, [facility] [address] [facility] [id number] [address] [place] [id number] 13 Dec, 2016 Encounter for immunization Z 23 [facility] [address] [facility] [id number] [address] [place] [address] 13 Dec, 2016 Intermittent explosive disor jocelyn F63.81 ; Attention deficit hyperactivity disorder F90.9 and Bipolar disorder, currently in remission, most recent episode unspecified F31.70 [facility] [address] [id number] [address] [place] [address] Nov, [facility] [address] [id number] [address] [place] [address] Oct, [facility] [address] [id number] [address] [place] [address] Oct, [facility] [address] [id number] [address] [place] [address] [id number] Oct, Dental examination Z01.20 [facility] [address] [id number] [address] [place] [address] Sep, [facility] [address] [facility] [id number] [address] [place] [address] Sep, [facility] [address] [id number] [address] [place] [address] Sep, Intermittent explosive disor jocelyn F63.81 ; Bipolar disorder F31.9 and Attention deficit hyperactivity disorder F90.9 [facility] [address] [id number] [address] [place] [address] Aug, [facility] [address] [id number] [address] [place] [address] Aug, [facility] [address] [id number] [address] [place] [address] Aug, [facility] [address] [id number] [address] [place] [address] Aug, Attention deficit hyperactiv ity disorder F90.9 [facility] [address] [id number] [address] [place] [address] Jul, [facility] [address] [id number] [address] [place] [address] Jun, [facility] [address] [id number] [address] [place] [address] May, [facility] [address] [id number] [address] [place] [address] Apr, [facility] [address] [id number] [address] [place] [address] Apr, Bipolar disorder F31.9 ; Att ention deficit hyperactivity disorder F90.9 and Intermittent explosive disorder F63.81 [facility] [address] [id number] [address] [place] [address] March, [facility] [address] [id number] [address] [place] [address] Feb, [facility] [address] [id number] [address] [place] [address] Feb, [facility] [address] [facility] [id number] [address] [place] [address] Jan, [facility] [address] [facility] [id number] [address] [place] [address] 14 Jan, 2016 [facility] [address] [facility] [id number] [address] [place] [address] Dec, [facility] [address] [facility] [id number] [address] [place] [address] Nov, [facility] [address] [facility] [id number] [address] [place] [address] Nov, [facility] [address] [facility] [id number] [address] [place] [address] Nov, Attention deficit hyperactiv ity disorder F90.9 ; Intermittent explosive disorder F63.81 and Bipolar disorder F31.9 [facility] [address] [facility] [id number] [address] [place] [address] Oct, [facility] [address] [facility] [id number] [address] [place] [address] Oct, [facility] [address] [facility] [id number] [address] [place] [address] Sep, [facility] [address] [facility] [id number] [address] [place] [address] Aug, [facility] [address] [facility] [id number] [address] [place] [address] Jul, [facility] [address] [facility] [id number] [address] [place] [address] Jul, [facility] [address] [facility] [id number] [address] [place] [address] Jul, Anxiety, generalized 300.02 ; Bipolar disorder, unspecified 296.80 ; 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.00 ; 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 and Impulse control disorder, unspecified 312.30 [facility] [address] [facility] [id number] [address] [place] [address] Jul, [facility] [address] [id number] [address] [place] [address] Jun, [facility] [address] [id number] [address] [place] [address] May, [facility] [address] [id number] [address] [place] [address] Apr, [facility] [address] [id number] [address] [place] [address] Apr, Bipolar disorder, unspecifie d 296.80 ; Generalized anxiety disorder 300.02 and 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.00 [facility] [address] [id number] [address] [place] [address] Apr, [facility] [address] [id number] [address] [place] [address] March, [facility] [address] [id number] [address] [place] [address] March, [facility] [address] [id number] [address] [place] [address] March, [facility] [address] [id number] [address] [place] [address] March, [facility] [address] [id number] [address] [place] [address] Feb, [facility] [address] [id number] [address] [place] [address] Feb, [facility] [address] [id number] [address] [place] [address] Jan, [facility] [address] [id number] [address] [place] [address] Jan, [facility] [address] [id number] [address] [place] [address] Jan, [facility] [address] [id number] [address] [place] [address] Jan, [facility] [address] [id number] [address] [place] [address], [place] [address] Jan, [facility] [address] [id number] [address] [place] [address], [place] [address] Dec, [facility] [address] [id number] [address] [place] [address], [place] [address] Dec, [facility] [address] [id number] [address] [place] [address], [place] [address] Nov, [facility] [address] [id number] [address] [place] [address], [place] [address] Nov, [facility] [address] [id number] [address] [place] [address], [place] [address] Nov, [facility] [address] [id number] [address] [place] [address], [place] [address] Oct, [facility] [address] [id number] [address] [place] [address], [place] [address] Oct, [facility] [address] [id number] [address] [place] [address], [place] [address] Oct, [facility] [address] [id number] [address] [place] [address], [place] [address] Oct, [facility] [address] [id number] [address] [place] [address], [place] [address] Oct, [facility] [address] [id number] [address] [place] [address] Oct, [facility] [address] [id number] [address] [place] [address], [place] [address] Sep, [facility] [address] [id number] [address] [place] [address], [place] [address] Sep, [facility] [address] [id number] [address] [place] [address], [place] [address] Sep, [facility] [address] [id number] [address] [place] [address], [place] [address] 07 Aug, 2014 [facility] [address] [id number] [address] [place] [address], [place] [address] Aug, [facility] [address] [id number] [address] [place] [address], [place] [address] Jul, [facility] [address] [id number] [address] [place] [address], [place] [address] Jul, [facility] [address] [id number] [address] [place] [address], [place] [address] Jun, [facility] [address] [id number] [address] [place] [address], [place] [address] Jun, [facility] [address] [id number] [address] [place] [address], [place] [address] Jun, [facility] [address] [id number] [address] [place] [address], [place] [address] Jun, [facility] [address] [id number] [address] [place] [address], [place] [address] May, [facility] [address] [id number] [address] [place] [address], [place] [address] May, [facility] [address] [id number] [address] [place] [address], [place] [address] May, [facility] [address] [id number] [address] [place] [address], [place] [address] Apr, [facility] [address] [id number] [address] [place] [address], [place] [address] Apr, [facility] [address] [id number] [address] [place] [address], [place] [address] Apr, [facility] [address] [id number] [address] [place] [address], [place] [address] Apr, [facility] [address] [id number] [address] [place] [address], [place] [address] March, [facility] [address] [id number] [facility] [address] March, [facility] [address] [id number] [address] [place] [address], [place] [address] March, [facility] [address] [id number] [address] [place] [address], [place] [address] March, [facility] [address] [id number] [address] [place] [address], [place] [address] Feb, [facility] [address] [id number] [address] [place] [address], [place] [address] Feb, [facility] [address] [id number] [address] [place] [address], [place] [address] Jan, [facility] [address] [id number] [address] [place] [address], [place] [address] Jan, [facility] [address] [id number] [address] [place] [address], [place] [address] Jan, [facility] [address] [id number] [address] [place] [address], [place] [address] Jan, [facility] [address] [id number] [address] [place] [address], [place] [address] Jan, [facility] [address] [id number] [address] [place] [address], [place] [address] Jan, [facility] [address] [id number] [address] [place] [address], [place] [address] Jan, [facility] [address] [id number] [address] [place] [address], [place] [address] Jan, [facility] [address] [id number] [address] [place] [address], [place] [address] Dec, [facility] [address] [id number] [address] [place] [address], [place] [address] Dec, [facility] [address] [id number] [address] [place] [address], [place] [address] Dec, [facility] [address] [id number] [address] [place] [address], [place] [address] Dec, [facility] [address] [id number] [address] [place] [address], [place] [address] Nov, [facility] [address] [id number] [address] [place] [address], [place] [address] Nov, [facility] [address] [id number] [address] [place] [address] Oct, [facility] [address] [id number] [address] [place] [address], [place] [address] Oct, [facility] [address] [id number] [address] [place] [address], [place] [address] Oct, [facility] [address] [id number] [address] [place] [address], [place] [address] Oct, [facility] [address] [id number] [address] [place] [address], [place] [address] Sep, [facility] [address] [id number] [address] [place] [address] Sep, [facility] [address] [id number] [address] [place] [address], [place] [address] Sep, [facility] [address] [id number] [address] [place] [address] Sep, [facility] [address] [id number] [address] [place] [address] Aug, [facility] [address] [id number] [address] [place] [address], [place] [address] Aug, [facility] [address] [id number] [address] [place] [id number] Aug, [facility] [address] [id number] [address] [place] [id number] Jul, [facility] [address] [id number] [address] [place] [address], [place] [address] Jul, [facility] [address] [id number] [address] [place] [address], [place] [address] Jun, [facility] [address] [id number] [address] [place] [address], [place] [address] Jun, [facility] [address] [id number] [address] [place] [address], [place] [address] May, [facility] [address] [id number] [address] [place] [address], [place] [address] May, [facility] [address] [id number] [address] [place] [address], [place] [address] Apr, [facility] [address] [id number] [address] [place] [address], [place] [address] March, [facility] [address] [id number] [address] [place] [address], [place] [address] March, [facility] [address] [id number] [address] [place] [address], [place] [address] Feb, [facility] [address] [id number] [address] [place] [address], [place] [address] Jan, [facility] [address] [id number] [address] [place] [address], [place] [address] Jan, [facility] [address] [id number] [address] [place] [address], [place] [address] Dec, [facility] [address] [id number] [address] [place] [address], [place] [address] Dec, [facility] [address] [id number] [address] [place] [address], [place] [address] Nov, [facility] [address] [id number] [address] [place] [address], [place] [address] Nov, [facility] [address] [id number] [address] [place] [address], [place] [address] Nov, [facility] [address] [id number] [address] [place] [address], [place] [address] Nov, [facility] [address] [id number] [address] [place] [address], [place] [address] Nov, [facility] [address] [id number] [address] [place] [address], [place] [address] Oct, [facility] [address] [id number] [address] [place] [address], [place] [address] Oct, [facility] [address] [id number] [address] [place] [address], [place] [address] Oct, [facility] [address] [id number] [address] [place] [address], [place] [address] Oct, [facility] [address] [id number] [address] [place] [address], [place] [address] Oct, [facility] [address] [id number] [address] [place] [address], [place] [address] Oct, [facility] [address] [id number] [address] [place] [address], [place] [address] Oct, [facility] [address] [id number] [address] [place] [address], [place] [address] Oct, [facility] [address] [id number] [address] [place] [address], [place] [address] Sep, [facility] [address] [id number] [address] [place] [address], [place] [address] Sep, [facility] [address] [id number] [address] [place] [address], [place] [address] Sep, [facility] [address] [id number] [address] [place] [address], [place] [address] Aug, [facility] [address] [id number] [address] [place] [address], [place] [address] Aug, [facility] [address] [id number] [address] [place] [address] [place] [address] 10 Aug, 2012 [facility] [address] [id number] [address] [place] [address], [place] [address] Aug, [facility] [address] [id number] [address] [place] [address], [place] [address] Aug, [facility] [address] [id number] [address] [place] [address], [place] [address] Jul, [facility] [address] [id number] [address] [place] [address], [place] [address] Jul, [facility] [address] [id number] [address] [place] [address], [place] [address] Jun, [facility] [address] [id number] [address] [place] [address], [place] [address] May, [facility] [address] [id number] [address] [place] [address], [place] [address] May, [facility] [address] [id number] [address] [place] [address], [place] [address] Apr, [facility] [address] [id number] [address] [place] [address], [place] [address] March, [facility] [address] [id number] [address] [place] [address], [place] [address] March, [facility] [address] [id number] [address] [place] [address], [place] [address] March, [facility] [address] [id number] [address] [place] [address], [place] [address] March, [facility] [address] [id number] [address] [place] [address], [place] [address] Feb, [facility] [address] [id number] [address] [place] [address], [place] [address] Feb, [facility] [address] [id number] [address] [place] [address], [place] [address] Jan, [facility] [address] [id number] [address] [place] [address] Dec, [facility] [address] [id number] [address] [place] [address] Dec, [facility] [address] [id number] [address] [place] [address] Dec, [facility] [address] [id number] [address] [place] [address] Nov, [facility] [address] [id number] [address] [place] [address] Nov, [facility] [address] [id number] [address] [place] [address] Nov, [facility] [address] [id number] [address] [place] [address] Oct, [facility] [address] [id number] [address] [place] [address] Sep, [facility] [address] [id number] [address] [place] [address] Aug, [facility] [address] [id number] [address] [place] [address] Aug, [facility] [address] [id number] [address] [place] [address] May, [facility] [address] [id number] [address] [place] [address] Sep, [facility] [address] [id number] [address] [place] [address] Sep, IMMUNIZATIONS No Known Immunizations SOCIAL HISTORY Never Assessed REASON FOR VISIT vyvanse 03/23/2018 PLAN OF CARE VITAL SIGNS MEDICATIONS Medication [...]
--- OUTSIDE RECORDS SUMMARY | 2020-03-18 15:34 | XMS REPORT ---
Author Author Jose Cruz FELDMAN CARLOS Organization [facility] Address [address] [place] [address] Care Team Providers Care Panel Machine Tender Name Role Phone FRANCIAANGIECARLOS Unavailable PROBLEMS Type Condition ICD9-CM Code [id number] Code Onset Dates Condition S tatus SNOMED Code Problem Bipolar disorder, unspecified 296.80 Active 36364584 Problem Bipolar disorder F31.9 Active 137 03388 Problem Bipolar I disorder, most recent episode (or current) mixed, moderate 296.62 Active 260258982 Problem Encounter for long-term (current) use of other medications V58.69 Active 433806446 Problem 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 Ac tive 38770284 Problem 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 314.00 Active 87709917 Problem Generalized anxiety disorder 300.02 A ctive 43840056 Problem Attention-deficit hyperactiv ity disorder, predominantly inattentive type F90.0 Active 72635823 Problem Intellectual disability F79 Active 92781659 Problem Attention deficit hyperactivity disorder F90.9 Active 995325011 Problem Intermittent explosive disorder F63.81 Active 59176344 Problem Moderate intellectual disability F71 Active 57672507 Problem Bipolar disorder, currently in remission, most recent episode unspecified F31.70 Active [id number] ALLERGIES No Information ENCOUNTERS Encounter Location Date Diagnosis [facility] [address] [facility] [id number] [address] [place] [place] [phone] Jun, [facility] [address] [facility] [id number] [address] [place] [phone] Jun, Bipolar disorder, currently in remission, most recent episode unspecified F31.70 [facility] [address] [id number] [address] [place] [address] [id number] Jun, Dental examination Z01.20 an d Dental caries K02.9 [facility] [address] [facility] [id number] [address] [place] [phone] May, Bipolar disorder, currently in remission, most recent episode unspecified F31.70 [facility] [address] [id number] [address] [place] [phone] May, Bipolar disorder, currently in remission, most recent episode unspecified F31.70 [facility] [address] [id number] [address] [place] [address] May, Bipolar disorder, currently in remission, most recent episode unspecified F31.70 ; Moderate intellectual disability F71 and Attention-deficit hyperactivity disorder, predominantly inattentive type F90.0 [facility] [address] [id number] [address] [place] [address] Apr, Bipolar disorder, unspecifie d F31.9 [facility] [address] [id number] [address] [place] [phone] Apr, [facility] [address] [id number] [address] [place] [phone] Apr, [facility] [address] [id number] [address] [place] [phone] Apr, [facility] [address] [id number] [address] [place] [phone] March, [facility] [address] [id number] [address] [place] [phone] March, Bipolar disorder, currently in remission, most recent episode unspecified F31.70 ; Moderate intellectual disability F71 and Attention-deficit hyperactivity disorder, predominantly inattentive type F90.0 [facility] [address] [id number] [address] [place] [phone] Feb, [facility] [address] [id number] [address] [place] [id number] Feb, Dental examination Z01.20 [facility] [address] [id number] [address] [place] [phone] Jan, [facility] [address] [id number] [address] [place] [phone] Jan, [facility] [address] [id number] [address] [place] [phone] Dec, [facility] [address] [id number] [address] [place] [phone] Nov, [facility] [address] [id number] [address] [place] [address] [id number] Nov, Dental examination Z01.20 [facility] [id number] [place] [id number] Nov, Encounter for dental exam an d cleaning w/o abnormal findings Z01.20 [facility] [address] [id number] [address] [place] [phone] Oct, [facility] [address] [id number] [address] [place] [address] Oct, Bipolar disorder, currently in remission, most recent episode unspecified F31.70 ; Moderate intellectual disability F71 and Attention-deficit hyperactivity disorder, predominantly inattentive type F90.0 [facility] [address] [id number] [address] [place] [phone] Sep, [facility] [address] [id number] [address] [place] [phone] Sep, [facility] [address] [id number] [address] [place] [phone] Aug, [facility] [address] [id number] [address] [place] [phone] Aug, Attention-deficit hyperactiv ity disorder, predominantly inattentive type F90.0 ; Moderate intellectual disability F71 and Bipolar disorder F31.9 [facility] [address] [id number] [address] [place] [id number] Jul, Dental examination Z01.20 an d Dental caries K02.9 [facility] [address] [id number] [address] [place] [phone] 05 Jul, 2017 [facility] [address] [facility] [id number] [address] [place] [phone] Jun, Bipolar disorder F31.9 ; Att ention-deficit hyperactivity disorder, predominantly inattentive type F90.0 and Moderate intellectual disability F71 [facility] [address] [facility] [id number] [address] [place] [address] Jun, [facility] [address] [facility] [id number] [address] [place] [phone] May, [facility] [address] [facility] [id number] [address] [place] [phone] Apr, [facility] [address] [facility] [id number] [address] [place] [address] March, Intermittent explosive disor jocelyn F63.81 ; Attention deficit hyperactivity disorder F90.[address] [facility] [address] [facility] [id number] [address] [place] [address] Feb, [facility] [address] [facility] [id number] [address] [place] [phone] Jan, [facility] [address] [facility] [id number] [address] [place] [phone] 13 Dec, 2016 Intermittent explosive disor jocelyn F63.81 ; Attention deficit hyperactivity disorder F90.9 and Bipolar disorder, currently in remission, most recent episode unspecified F31.70 [facility] [address] [facility] [id number] [address] [place] [phone] 13 Dec, 2016 Encounter for immunization Z 23 [facility] [address] [facility] [id number] [address] [place] [phone] Nov, [facility] [address] [facility] [id number] [address] [place] [phone] Oct, [facility] [address] [facility] [id number] [address] [place] [phone] Oct, [facility] [address] [facility] [id number] [address] [place] [address] [id number] Oct, Dental examination Z01.20 [facility] [address] [id number] [address] [place] [phone] Sep, [facility] [address] [facility] [id number] [address] [place] [address] Sep, [facility] [address] [facility] [id number] [address] [place] [phone] Sep, Intermittent explosive disor jocelyn F63.81 ; Bipolar disorder F31.9 and Attention deficit hyperactivity disorder F90.9 [facility] [address] [id number] [address] [place] [place] [phone] Aug, [facility] [address] [facility] [id number] [address] [place] [phone] Aug, [facility] [address] [facility] [id number] [address] [place] [phone] Aug, [facility] [address] [facility] [id number] [address] [place] [phone] Aug, Attention deficit hyperactiv ity disorder F90.9 [facility] [address] [id number] [address] [place] [phone] Jul, [facility] [address] [facility] [id number] [address] [place] [id number] Jun, [facility] [address] [facility] [id number] [address] [place] [phone] May, [facility] [address] [id number] [address] [place] [phone] Apr, [facility] [address] [facility] [id number] [address] [place] [phone] Apr, Bipolar disorder F31.9 ; Att ention deficit hyperactivity disorder F90.9 and Intermittent explosive disorder F63.81 [facility] [address] [facility] [id number] [address] [place] [phone] March, [facility] [address] [id number] [address] [place] [phone] Feb, [facility] [address] [id number] [address] [place] [phone] Feb, [facility] [address] [id number] [address] [place] [phone] Jan, [facility] [address] [id number] [address] [place] [phone] Jan, [facility] [address] [id number] [address] [place] [place] [phone] Dec, [facility] [address] [id number] [address] [place] [phone] Nov, [facility] [address] [facility] [id number] [address] [place] [phone] Nov, [facility] [address] [id number] [address] [place] [phone] Nov, Attention deficit hyperactiv ity disorder F90.9 ; Intermittent explosive disorder F63.[address] [facility] [address] [id number] [address] [place] [place] [phone] Oct, [facility] [address] [facility] [id number] [address] [place] [phone] Oct, [facility] [address] [id number] [address] [place] [phone] Sep, [facility] [address] [id number] [address] [place] [phone] Aug, [facility] [address] [id number] [address] [place] [phone] Jul, [facility] [address] [id number] [address] [place] [phone] Jul, [facility] [address] [id number] [address] [place] [address] Jul, Anxiety, generalized 300.02 ; Bipolar disorder, unspecified 296.80 ; 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.00 ; 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 and Impulse control disorder, unspecified 312.30 [facility] [address] [id number] [address] [place] [phone] Jul, [facility] [address] [id number] [address] [place] [phone] Jun, [facility] [address] [id number] [address] [place] [phone] May, [facility] [address] [id number] [address] [place] [phone] Apr, [facility] [address] [id number] [address] [place] [phone] Apr, Bipolar disorder, unspecifie d 296.80 ; Generalized anxiety disorder 300.02 and 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.00 [facility] [address] [id number] [address] [place] [address] Apr, [facility] [address] [id number] [address] [place] [phone] March, [facility] [address] [id number] [address] [place] [phone] March, [facility] [address] [id number] [address] [place] [phone] March, [facility] [address] [id number] [address] [place] [phone] March, [facility] [address] [id number] [address] [place] [phone] Feb, [facility] [address] [id number] [address] [place] [phone] Feb, [facility] [address] [id number] [address] [place] [phone] Jan, [facility] [address] [id number] [address] [place] [address], [place] [phone] Jan, 2014 [facility] [address] [id number] [address] [place] [address], [place] [phone] Jan, 2014 [facility] [address] [id number] [address] [place] [address], [place] [phone] Jan, [facility] [address] [id number] [address] [place] [address], [place] [phone] Jan, [facility] [address] [id number] [address] [place] [address], [place] [phone] Dec, [facility] [address] [id number] [address] [place] [address], [place] [address] Dec, [facility] [address] [id number] [address] [place] [address], [place] [phone] Nov, [facility] [address] [id number] [address] [place] [address], [place] [phone] Nov, [facility] [address] [id number] [address] [place] [address], [place] [phone] Nov, [facility] [address] [id number] [address] [place] [address], [place] [phone] Oct, [facility] [address] [id number] [address] [place] [address], [place] [phone] Oct, [facility] [address] [id number] [address] [place] [address], [place] [phone] Oct, [facility] [address] [id number] [address] [place] [address], [place] [phone] Oct, [facility] [address] [id number] [address] [place] [address], [place] [phone] Oct, [facility] [address] [id number] [address] [place] [address], [place] [address] Oct, [facility] [address] [id number] [address] [place] [address], [place] [phone] Sep, [facility] [address] [id number] [address] [place] [address], [place] [address] Sep, [facility] [address] [id number] [address] [place] [address], [place] [address] Sep, [facility] [address] [id number] [address] [place] [address], [place] [address] Aug, [facility] [address] [id number] [address] [place] [address], [place] [address] Aug, [facility] [address] [id number] [address] [place] [address], [place] [phone] Jul, [facility] [address] [id number] [address] [place] [address], [place] [id number] Jul, [facility] [address] [id number] [address] [place] [address], [place] [address] Jun, [facility] [address] [id number] [address] [place] [address], [place] [address] Jun, [facility] [address] [id number] [address] [place] [address], [place] [address] Jun, [facility] [address] [id number] [address] [place] [address], [place] [address] Jun, [facility] [address] [id number] [address] [place] [address], [place] [address] May, [facility] [address] [id number] [address] [place] [address], [place] [address] May, [facility] [address] [id number] [address] [place] [address], [place] [address] May, [facility] [address] [id number] [address] [place] [address], [place] [phone] Apr, [facility] [address] [id number] [address] [place] [address], [place] [address] Apr, [facility] [address] [id number] [facility] [place] [address] Apr, [facility] [address] [id number] [facility] [place] [address] Apr, [facility] [address] [id number] [facility] [place] [address] March, [facility] [address] [id number] [address] [place] [address], [place] [address] March, [facility] [address] [id number] [address] [place] [address], [place] [address] March, [facility] [address] [id number] [address] [place] [address], [place] [address] March, [facility] [address] [id number] [address] [place] [address], [place] [phone] Feb, [facility] [address] [id number] [address] [place] [address], [place] [phone] Feb, [facility] [address] [id number] [address] [place] [address], [place] [address] Jan, [facility] [address] [id number] [address] [place] [address], [place] [address] Jan, [facility] [address] [id number] [address] [place] [address], [place] [address] Jan, [facility] [address] [id number] [address] [place] [address], [place] [address] Jan, [facility] [address] [id number] [address] [place] [address], [place] [address] Jan, [facility] [address] [id number] [address] [place] [address], [place] [id number] Jan, [facility] [address] [id number] [address] [place] [address], [place] [phone] Jan, [facility] [address] [id number] [address] [place] [address], [place] [address] Jan, [facility] [address] [id number] [facility] [place] [address] Dec, [facility] [address] [id number] [address] [place] [address], [place] [address] Dec, [facility] [address] [id number] [address] [place] [address], [place] [address] Dec, [facility] [address] [id number] [address] [place] [address], [place] [address] Dec, [facility] [address] [id number] [address] [place] [address], [place] [address] Nov, [facility] [address] [id number] [address] [place] [address], [place] [address] Nov, [facility] [address] [id number] [address] [place] [address], [place] [address] Oct, [facility] [address] [id number] [address] [place] [address], [place] [id number] Oct, [facility] [address] [id number] [address] [place] [address], [place] [id number] Oct, [facility] [address] [id number] [address] [place] [address], [place] [id number] Oct, [facility] [address] [id number] [address] [place] [address], [place] [id number] Sep, [facility] [address] [id number] [address] [place] [address], [place] [id number] Sep, [facility] [address] [id number] [address] [place] [address], [place] [id number] Sep, [facility] [address] [id number] [address] [place] [address], [place] [id number] Sep, [facility] [address] [id number] [address] [place] [address], [place] [id number] Aug, [facility] [address] [id number] [address] [place] [address], [place] [id number] 10 Aug, 2013 [facility] [address] [id number] [address] [place] [address], [place] [id number] 07 Aug, 2013 [facility] [address] [id number] [address] [place] [address], [place] [id number] Jul, [facility] [address] [id number] [address] [place] [address], [place] [id number] Jul, [facility] [address] [id number] [address] [place] [address], [place] [id number] Jun, [facility] [address] [id number] [address] [place] [address], [place] [id number] Jun, [facility] [address] [id number] [address] [place] [address], [place] [id number] May, [facility] [address] [id number] [address] [place] [address], [place] [id number] May, [facility] [address] [id number] [address] [place] [address], [place] [id number] Apr, [facility] [address] [id number] [address] [place] [address], [place] [id number] March, [facility] [address] [id number] [address] [place] [address], [place] [id number] March, [facility] [address] [id number] [address] [place] [address], [place] [id number] Feb, [facility] [address] [id number] [address] [place] [address], [place] [id number] Jan, [facility] [address] [id number] [address] [place] [address], [place] [id number] Jan, [facility] [address] [id number] [address] [place] [address], [place] [id number] Dec, [facility] [address] [id number] [address] [place] [address], [place] [id number] Dec, [facility] [address] [id number] [address] [place] [address], [place] [id number] Nov, [facility] [address] [id number] [address] [place] [address], [place] [id number] Nov, [facility] [address] [id number] [address] [place] [address], [place] [id number] Nov, [facility] [facility] [address] [id number] [address] [place] [address], [place] [id number] Nov, [facility] [address] [id number] [address] [place] [address], [place] [id number] Nov, [facility] [address] [id number] [address] [place] [address], [place] [phone] Oct, [facility] [address] [id number] [address] [place] [address], [place] [id number] Oct, [facility] [address] [id number] [address] [place] [address], [place] [id number] Oct, [facility] [address] [id number] [address] [place] [address], [place] [id number] Oct, [facility] [address] [id number] [address] [place] [address], [place] [id number] Oct, [facility] [address] [id number] [address] [place] [address], [place] [id number] Oct, [facility] [address] [id number] [address] [place] [address], [place] [id number] Oct, [facility] [address] [id number] [address] [place] [address], [place] [id number] Oct, [facility] [address] [id number] [address] [place] [address], [place] [id number] Sep, [facility] [address] [id number] [address] [place] [address], [place] [id number] Sep, [facility] [address] [id number] [address] [place] [address], [place] [id number] Sep, [facility] [address] [id number] [address] [place] [address], [place] [id number] Aug, [facility] [address] [id number] [address] [place] [address], [place] [id number] Aug, [facility] [address] [id number] [address] [place] [address], [place] [id number] Aug, [facility] [address] [id number] [address] [place] [address], [place] [id number] Aug, [facility] [address] [id number] [address] [place] [address], [place] [id number] Aug, [facility] [address] [id number] [address] [place] [address], [place] [id number] Jul, [facility] [address] [id number] [address] [place] [address], [place] [id number] Jul, [facility] [address] [id number] [address] [place] [address], [place] [id number] Jun, [facility] [address] [id number] [address] [place] [address], [place] [id number] May, [facility] [address] [id number] [address] [place] [address], [place] [id number] May, [facility] [address] [id number] [address] [place] [address], [place] [id number] Apr, [facility] [address] [id number] [address] [place] [address], [place] [id number] March, [facility] [address] [id number] [address] [place] [address], [place] [id number] March, [facility] [address] [id number] [address] [place] [address], [place] [id number] March, [facility] [address] [id number] [address] [place] [address], [place] [id number] March, [facility] [address] [id number] [address] [place] [address], [place] [id number] 10 Feb, 2012 [facility] [address] [id number] [address] [place] [address], [place] [id number] Feb, [facility] [address] [id number] [address] [place] [address], [place] [id number] Jan, [facility] [address] [id number] [address] [place] [address], [place] [id number] 10 Dec, 2011 [facility] [address] [id number] [address] [place] [address], [place] [id number] 08 Dec, 2011 [facility] [address] [id number] [address] [place] [address], [place] [id number] Dec, [facility] [address] [id number] [address] [place] [address], [place] [phone] Nov, [facility] [address] [id number] [address] [place] [address], [place] [id number] Nov, [facility] [address] [id number] [address] [place] [address], [place] [id number] Nov, [facility] [address] [id number] [address] [place] [address], [place] [id number] Oct, [facility] [address] [id number] [address] [place] [address], [place] [phone] Sep, [facility] [address] [id number] [address] [place] [address], [place] [id number] Aug, [facility] [address] [id number] [address] [place] [address], [place] [id number] Aug, [facility] [address] [id number] [address] [place] [address], [place] [id number] May, [facility] [address] [id number] [address] [place] [address], [place] [id number] Sep, [facility] [address] [id number] [address] [place] [address], [place] [id number] Sep, IMMUNIZATIONS No Known Immunizations SOCIAL HISTORY Never Assessed REASON FOR VISIT vyvanse 05/18/2018 PLAN OF CARE VITAL SIGNS MEDICATIONS Medication Instructions Dosage Frequency Start Date End Date Duration S rené Vyvanse 70 MG Orally Once a day 1 capsule in the morning 24h Apr, 28 days Active RESULTS No Results PROCEDURES No Known procedures INSTRUCTIONS MEDICATIONS ADMINISTERED No Known Medications MEDICAL (GENERAL) HISTORY Type Description Date Medical History bipolar Medical History adhd Medical History anxiety
--- OUTSIDE RECORDS SUMMARY | 2020-03-18 15:34 | XMS REPORT ---
Author Author Jose Cruz FELDMAN CARLOS Organization [facility] Address [address] [place] [address] Care Team Providers Care Collar Stitcher Name Role Phone FRANCIAANGIECARLOS Unavailable PROBLEMS Type Condition ICD9-CM Code NXL28-YO Code Onset Dates Condition S tatus SNOMED Code Problem Bipolar disorder, unspecified 296.80 Active 30971069 Problem Bipolar disorder F31.9 Active 137 12321 Problem Bipolar I disorder, most recent episode (or current) mixed, moderate 296.62 Active 373099531 Problem Encounter for long-term (current) use of other medications V58.69 Active 458730709 Problem 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 Ac tive 04986496 Problem 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 314.00 Active 39579250 Problem Generalized anxiety disorder 300.02 A ctive 25084502 Problem Attention-deficit hyperactiv ity disorder, predominantly inattentive type F90.0 Active 22036787 Problem Intellectual disability F79 Active 82201677 Problem Attention deficit hyperactivity disorder F90.9 Active 561689190 Problem Intermittent explosive disorder F63.81 Active 70237083 Problem Moderate intellectual disability F71 Active 53869118 Problem Bipolar disorder, currently in remission, most recent episode unspecified F31.70 Active 79941631 ALLERGIES No Information ENCOUNTERS Encounter Location Date Diagnosis [facility] [address] [facility] [id number] [address] [place] [address] Jun, [facility] [address] [facility] [id number] [address] [place] [address] Jun, Bipolar disorder, currently in remission, most recent episode unspecified F31.70 [facility] [address] [id number] [address] [place] [address] [id number] Jun, Dental examination Z01.20 an d Dental caries K02.9 [facility] [address] [facility] [id number] [address] [place] [address] May, Bipolar disorder, currently in remission, most recent episode unspecified F31.70 [facility] [address] [id number] [address] [place] [address] May, Bipolar disorder, currently in remission, most recent episode unspecified F31.70 [facility] [address] [id number] [address] [place] [address] May, Bipolar disorder, currently in remission, most recent episode unspecified F31.70 ; Moderate intellectual disability F71 and Attention-deficit hyperactivity disorder, predominantly inattentive type F90.0 [facility] [address] [id number] [address] [place] [address] Apr, Bipolar disorder, unspecifie d F31.9 [facility] [address] [id number] [address] [place] [address] Apr, [facility] [address] [id number] [address] [place] [address] Apr, [facility] [address] [id number] [address] [place] [address] Apr, [facility] [address] [id number] [address] [place] [address] March, [facility] [address] [id number] [address] [place] [address] March, Bipolar disorder, currently in remission, most recent episode unspecified F31.70 ; Moderate intellectual disability F71 and Attention-deficit hyperactivity disorder, predominantly inattentive type F90.0 [facility] [address] [id number] [address] [place] [address] Feb, [facility] [address] [id number] [address] [place] [address] [id number] Feb, Dental examination Z01.20 [facility] [address] [id number] [address] [place] [address] Jan, [facility] [address] [id number] [address] [place] [address] Jan, [facility] [address] [id number] [address] [place] [address] Dec, [facility] [address] [id number] [address] [place] [address] Nov, [facility] [address] [id number] [address] [place] [address] [id number] Nov, Encounter for dental exam an d cleaning w/o abnormal findings Z01.20 [facility] [address] [id number] [address] [place] [address] [id number] Nov, Dental examination Z01.20 [facility] [address] [id number] [address] [place] [address] Oct, [facility] [address] [id number] [address] [place] [address] Oct, Bipolar disorder, currently in remission, most recent episode unspecified F31.70 ; Moderate intellectual disability F71 and Attention-deficit hyperactivity disorder, predominantly inattentive type F90.0 [facility] [address] [id number] [address] [place] [address] Sep, [facility] [address] [id number] [address] [place] [address] Sep, [facility] [address] [id number] [address] [place] [address] Aug, [facility] [address] [id number] [address] [place] [address] Aug, Attention-deficit hyperactiv ity disorder, predominantly inattentive type F90.0 ; Moderate intellectual disability 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 and Bipolar disorder F31.9 [facility] [address] [id number] [address] [place] [address] [id number] Jul, Dental examination Z01.20 an d Dental caries K02.9 [facility] [address] [id number] [address] [place] [id number] 05 Jul, 2017 [facility] [address] [id number] [address] [place] [address] Jun, Bipolar disorder F31.9 ; Att ention-deficit hyperactivity disorder, predominantly inattentive type F90.0 and Moderate intellectual disability F71 [facility] [address] [id number] [address] [place] [address] 11 Jun, 2017 [facility] [address] [facility] [id number] [address] [place] [address] 17 May, 2017 [facility] [address] [facility] [id number] [address] [place] [address] Apr, [facility] [address] [facility] [id number] [address] [place] [address] March, Intermittent explosive disor jocelyn F63.81 ; Attention deficit hyperactivity disorder F90.9 and Bipolar disorder F31.9 [facility] [address] [id number] [address] [place] [address] Feb, [facility] [address] [id number] [address] [place] [address] Jan, [facility] [address] [facility] [id number] [address] [place] [address] 13 Dec, 2016 Encounter for immunization Z 23 [facility] [address] [facility] [id number] [address] [place] [address] 13 Dec, 2016 Intermittent explosive disor jocelyn F63.81 ; Attention deficit hyperactivity disorder F90.9 and Bipolar disorder, currently in remission, most recent episode unspecified F31.70 [facility] [address] [facility] [id number] [address] [place] [address] Nov, [facility] [address] [facility] [id number] [address] [place] [address] Oct, [facility] [address] [facility] [id number] [address] [place] [address] Oct, [facility] [address] [id number] [address] [place] [address] [id number] Oct, Dental examination Z01.20 [facility] [address] [id number] [address] [place] [address] Sep, [facility] [address] [facility] [id number] [address] [place] [address] Sep, [facility] [address] [facility] [id number] [address] [place] [address] Sep, Intermittent explosive disor jocelyn F63.81 ; Bipolar disorder F31.9 and Attention deficit hyperactivity disorder F90.9 [facility] [address] [id number] [address] [place] [address] Aug, [facility] [address] [facility] [id number] [address] [place] [address] Aug, [facility] [address] [facility] [id number] [address] [place] [address] Aug, [facility] [address] [facility] [id number] [address] [place] [address] Aug, Attention deficit hyperactiv ity disorder F90.9 [facility] [address] [id number] [address] [place] [address] Jul, [facility] [address] [facility] [id number] [address] [place] [address] Jun, [facility] [address] [facility] [id number] [address] [place] [address] May, [facility] [address] [id number] [address] [place] [address] Apr, [facility] [address] [facility] [id number] [address] [place] [address] Apr, Bipolar disorder F31.9 ; Att ention deficit hyperactivity disorder F90.9 and Intermittent explosive disorder F63.81 [facility] [address] [facility] [id number] [address] [place] [address] March, [facility] [address] [id number] [address] [place] [address] Feb, [facility] [address] [id number] [address] [place] [address] Feb, [facility] [address] [id number] [address] [place] [address] Jan, [facility] [address] [id number] [address] [place] [address] Jan, [facility] [address] [id number] [address] [place] [address] Dec, [facility] [address] [id number] [address] [place] [address] Nov, [facility] [address] [facility] [id number] [address] [place] [address] Nov, [facility] [address] [id number] [address] [place] [address] Nov, Attention deficit hyperactiv ity disorder F90.9 ; Intermittent explosive disorder F63.81 and Bipolar disorder F31.9 [facility] [address] [id number] [address] [place] [address] Oct, [facility] [address] [facility] [id number] [address] [place] [address] Oct, [facility] [address] [id number] [address] [place] [address] Sep, [facility] [address] [id number] [address] [place] [address] Aug, [facility] [address] [id number] [address] [place] [address] Jul, [facility] [address] [id number] [address] [place] [address] Jul, [facility] [address] [id number] [address] [place] [address] Jul, Anxiety, generalized 300.02 ; Bipolar disorder, unspecified 296.80 ; 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.00 ; 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 and Impulse control disorder, unspecified 312.30 [facility] [address] [id number] [address] [place] [address] Jul, [facility] [address] [id number] [address] [place] [address] Jun, [facility] [address] [id number] [address] [place] [address] May, [facility] [address] [id number] [address] [place] [address] Apr, [facility] [address] [id number] [address] [place] [address] Apr, Bipolar disorder, unspecifie d 296.80 ; Generalized anxiety disorder 300.02 and 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.00 [facility] [address] [id number] [address] [place] [address] Apr, [facility] [address] [id number] [address] [place] [address] March, [facility] [address] [id number] [address] [place] [address] March, [facility] [address] [id number] [address] [place] [address] March, [facility] [address] [id number] [address] [place] [address] March, [facility] [address] [id number] [address] [place] [address] Feb, [facility] [address] [id number] [address] [place] [address] Feb, [facility] [address] [id number] [address] [place] [address] Jan, [facility] [address] [id number] [address] [place] [address], [place] [address] Jan, 2014 [facility] [address] [id number] [address] [place] [address], [place] [address] Jan, 2014 [facility] [address] [id number] [address] [place] [address], [place] [address] Jan, [facility] [address] [id number] [address] [place] [address], [place] [address] Jan, [facility] [address] [id number] [address] [place] [address], [place] [address] Dec, [facility] [address] [id number] [address] [place] [address], [place] [address] Dec, [facility] [address] [id number] [address] [place] [address], [place] [address] Nov, [facility] [address] [id number] [address] [place] [address], [place] [address] Nov, [facility] [address] [id number] [address] [place] [address], [place] [address] Nov, [facility] [address] [id number] [address] [place] [address], [place] [address] Oct, [facility] [address] [id number] [address] [place] [address], [place] [address] Oct, [facility] [address] [id number] [address] [place] [address], [place] [address] Oct, [facility] [address] [id number] [address] [place] [address], [place] [address] Oct, [facility] [address] [id number] [address] [place] [address], [place] [address] Oct, [facility] [address] [id number] [address] [place] [address], [place] [address] Oct, [facility] [address] [id number] [address] [place] [address], [place] [address] Sep, [facility] [address] [id number] [address] [place] [address], [place] [address] Sep, [facility] [address] [id number] [address] [place] [address], [place] [address] Sep, [facility] [address] [id number] [address] [place] [address], [place] [address] Aug, [facility] [address] [id number] [address] [place] [address], [place] [address] Aug, [facility] [address] [id number] [address] [place] [address], [place] [address] Jul, [facility] [address] [id number] [address] [place] [address], [place] [address] Jul, [facility] [address] [id number] [address] [place] [address], [place] [address] Jun, [facility] [address] [id number] [address] [place] [address], [place] [address] Jun, [facility] [address] [id number] [address] [place] [address], [place] [address] Jun, [facility] [address] [id number] [address] [place] [address], [place] [address] Jun, [facility] [address] [id number] [address] [place] [address], [place] [address] May, [facility] [address] [id number] [address] [place] [address], [place] [address] May, [facility] [address] [id number] [address] [place] [address], [place] [address] May, [facility] [address] [id number] [address] [place] [address], [place] [address] Apr, [facility] [address] [id number] [address] [place] [address], [place] [address] Apr, [facility] [address] [id number] [facility] [place] [address] Apr, [facility] [address] [id number] [facility] [place] [address] Apr, [facility] [address] [id number] [facility] [place] [address] March, [facility] [address] [id number] [address] [place] [address], [place] [address] March, [facility] [address] [id number] [address] [place] [address], [place] [address] March, [facility] [address] [id number] [address] [place] [address], [place] [address] March, [facility] [address] [id number] [address] [place] [address], [place] [address] Feb, [facility] [address] [id number] [address] [place] [address], [place] [address] Feb, [facility] [address] [id number] [address] [place] [address], [place] [address] Jan, [facility] [address] [id number] [address] [place] [address], [place] [address] Jan, [facility] [address] [id number] [address] [place] [address], [place] [address] Jan, [facility] [address] [id number] [address] [place] [address], [place] [address] Jan, [facility] [address] [id number] [address] [place] [address], [place] [address] Jan, [facility] [address] [id number] [address] [place] [address], [place] [address] Jan, [facility] [address] [id number] [address] [place] [address], [place] [address] Jan, [facility] [address] [id number] [address] [place] [address], [place] [address] Jan, [facility] [address] [id number] [facility] [place] [address] Dec, [facility] [address] [id number] [address] [place] [address], [place] [address] Dec, [facility] [address] [id number] [address] [place] [address], [place] [address] Dec, [facility] [address] [id number] [address] [place] [address], [place] [address] Dec, [facility] [address] [id number] [address] [place] [address], [place] [address] Nov, [facility] [address] [id number] [address] [place] [address], [place] [address] Nov, [facility] [address] [id number] [address] [place] [address], [place] [address] Oct, [facility] [address] [id number] [address] [place] [address], [place] [address] Oct, [facility] [address] [id number] [address] [place] [address], [place] [address] Oct, [facility] [address] [id number] [address] [place] [address], [place] [address] Oct, [facility] [address] [id number] [address] [place] [address], [place] [address] Sep, [facility] [address] [id number] [address] [place] [address], [place] [address] Sep, [facility] [address] [id number] [address] [place] [address], [place] [address] Sep, [facility] [address] [id number] [address] [place] [address], [place] [address] Sep, [facility] [address] [id number] [address] [place] [address], [place] [address] Aug, [facility] [address] [id number] [address] [place] [address], [place] [address] 10 Aug, 2013 [facility] [address] [id number] [address] [place] [address], [place] [address] 07 Aug, 2013 [facility] [address] [id number] [address] [place] [address], [place] [address] Jul, [facility] [address] [id number] [address] [place] [address], [place] [address] Jul, [facility] [address] [id number] [address] [place] [address], [place] [address] Jun, [facility] [address] [id number] [address] [place] [address], [place] [address] Jun, [facility] [address] [id number] [address] [place] [address], [place] [address] May, [facility] [address] [id number] [address] [place] [address], [place] [address] May, [facility] [address] [id number] [address] [place] [address], [place] [address] Apr, [facility] [address] [id number] [address] [place] [address], [place] [address] March, [facility] [address] [id number] [address] [place] [address], [place] [address] March, [facility] [address] [id number] [address] [place] [address], [place] [address] Feb, [facility] [address] [id number] [address] [place] [address], [place] [address] Jan, [facility] [address] [id number] [address] [place] [address], [place] [address] Jan, [facility] [address] [id number] [address] [place] [address], [place] [address] Dec, [facility] [address] [id number] [address] [place] [address], [place] [address] Dec, [facility] [address] [id number] [address] [place] [address], [place] [address] Nov, [facility] [address] [id number] [address] [place] [address], [place] [address] Nov, [facility] [address] [id number] [address] [place] [address], [place] [id number] Nov, [facility] [address] [id number] [address] [place] [address], [place] [id number] Nov, [facility] [address] [id number] [address] [place] [address], [place] [address] Nov, [facility] [address] [id number] [address] [place] [address], [place] [address] Oct, [facility] [address] [id number] [address] [place] [address], [place] [id number] Oct, [facility] [address] [id number] [address] [place] [address], [place] [id number] Oct, [facility] [address] [id number] [address] [place] [address], [place] [address] Oct, [facility] [address] [id number] [address] [place] [address], [place] [address] Oct, [facility] [address] [id number] [address] [place] [address], [place] [address] Oct, [facility] [address] [id number] [address] [place] [address], [place] [address] Oct, [facility] [address] [id number] [address] [place] [address], [place] [address] Oct, [facility] [address] [id number] [address] [place] [address], [place] [id number] Sep, [facility] [address] [id number] [address] [place] [address], [place] [address] Sep, [facility] [address] [id number] [address] [place] [address], [place] [address] Sep, [facility] [address] [id number] [address] [place] [address], [place] [address] Aug, [facility] [address] [address] [id number] [address] [place] [address], [place] [id number] Aug, [facility] [address] [id number] [address] [place] [address], [place] [id number] Aug, [facility] [address] [id number] [address] [place] [address], [place] [id number] Aug, [facility] [address] [id number] [address] [place] [address], [place] [address] Aug, [facility] [address] [id number] [address] [place] [address], [place] [address] Jul, [facility] [address] [id number] [address] [place] [address], [place] [address] Jul, [facility] [address] [id number] [address] [place] [address], [place] [address] Jun, [facility] [address] [id number] [address] [place] [address], [place] [address] May, [facility] [address] [id number] [address] [place] [address], [place] [address] May, [facility] [address] [id number] [address] [place] [address], [place] [address] Apr, [facility] [address] [id number] [address] [place] [address], [place] [address] March, [facility] [address] [id number] [address] [place] [address], [place] [address] March, [facility] [address] [id number] [address] [place] [address], [place] [address] March, [facility] [address] [id number] [address] [place] [address], [place] [address] March, [facility] [address] [id number] [address] [place] [address], [place] [address] 10 Feb, 2012 [facility] [address] [id number] [address] [place] [address], [place] [address] Feb, [facility] [address] [id number] [address] [place] [address], [place] [address] Jan, [facility] [address] [id number] [address] [place] [address], [place] [address] 10 Dec, 2011 [facility] [address] [id number] [address] [place] [address], [place] [id number] 08 Dec, 2011 [facility] [address] [id number] [address] [place] [address], [place] [address] Dec, [facility] [address] [id number] [address] [place] [address], [place] [address] Nov, [facility] [address] [id number] [address] [place] [address], [place] [address] Nov, [facility] [address] [id number] [address] [place] [address], [place] [address] Nov, [facility] [address] [id number] [address] [place] [address], [place] [address] Oct, [facility] [address] [id number] [address] [place] [address], [place] [address] Sep, [facility] [address] [id number] [address] [place] [address], [place] [address] Aug, [facility] [address] [id number] [address] [place] [address], [place] [address] Aug, [facility] [address] [id number] [address] [place] [address], [place] [address] May, [facility] [address] [id number] [address] [place] [address], [place] [address] Sep, [facility] [address] [id number] [address] [place] [address], [place] [address] Sep, IMMUNIZATIONS No Known Immunizations SOCIAL HISTORY Never Assessed REASON FOR VISIT Waiting for call back PLAN OF CARE VITAL SIGNS MEDICATIONS Medication Instructions Dosage Frequency Start Date End Date Duration S tatus Zyprexa 10 MG Orally at bedtime 1 tablet 30 days Active Trileptal 300 mg Orally 3 times a day 1 tablet 8h 3 0 Active RESULTS No Results PROCEDURES No Known procedures INSTRUCTIONS MEDICATIONS ADMINISTERED No Known Medications MEDICAL (GENERAL) HISTORY Type Description Date Medical History bipolar Medical History adhd Medical History anxiety
--- OUTSIDE RECORDS SUMMARY | 2020-03-18 15:34 | XMS REPORT ---
Author Author Jose Cruz FELDMAN CARLOS Organization [facility] Address [address] [place] [address] Care Team Providers Care Ct Scan Technician Name Role Phone LIZETANGIE ANAYAYLA Unavailable PROBLEMS Type Condition ICD9-CM Code QAF81-HK Code Onset Dates Condition S tatus SNOMED Code Problem Bipolar disorder, unspecified 296.80 Active 09685217 Problem Bipolar disorder F31.9 Active 137 43751 Problem Bipolar I disorder, most recent episode (or current) mixed, moderate 296.62 Active 623223529 Problem Encounter for long-term (current) use of other medications V58.69 Active 576778290 Problem 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 Ac tive 82607723 Problem 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 314.00 Active 05545853 Problem Generalized anxiety disorder 300.02 A ctive 33022335 Problem Attention-deficit hyperactiv ity disorder, predominantly inattentive type F90.0 Active 53348635 Problem Intellectual disability F79 Active 28155113 Problem Attention deficit hyperactivity disorder F90.9 Active 701845480 Problem Intermittent explosive disorder F63.81 Active 39481016 Problem Moderate intellectual disability F71 Active 83435519 Problem Bipolar disorder, currently in remission, most recent episode unspecified F31.70 Active 12955493 ALLERGIES No Information ENCOUNTERS Encounter Location Date Diagnosis [facility] [address] [facility] [id number] [address] [place] [id number] Jun, [facility] [address] [facility] [id number] [address] [place] [phone] Jun, Bipolar disorder, currently in remission, most recent episode unspecified F31.70 [facility] [address] [id number] [address] [place] [address] [phone] Jun, Dental examination Z01.20 an d Dental caries K02.9 [facility] [address] [facility] [id number] [address] [place] [id number] May, Bipolar disorder, currently in remission, most recent episode unspecified F31.70 [facility] [address] [id number] [address] [place] [phone] May, Bipolar disorder, currently in remission, most recent episode unspecified F31.70 [facility] [address] [id number] [address] [place] [phone] May, Bipolar disorder, currently in remission, most recent episode unspecified F31.70 ; Moderate intellectual disability F71 and Attention-deficit hyperactivity disorder, predominantly inattentive type F90.0 [facility] [address] [id number] [address] [place] [phone] Apr, Bipolar disorder, unspecifie d F31.9 [facility] [address] [id number] [address] [place] [phone] Apr, [facility] [address] [id number] [address] [place] [phone] Apr, [facility] [address] [id number] [address] [place] [phone] Apr, [facility] [address] [id number] [address] [place] [phone] March, [facility] [address] [id number] [address] [place] [phone] March, Bipolar disorder, currently in remission, most recent episode unspecified F31.70 ; Moderate intellectual disability F71 and Attention-deficit hyperactivity disorder, predominantly inattentive type F90.0 [facility] [address] [id number] [address] [place] [phone] Feb, [facility] [address] [id number] [address] [place] [address] [id number] Feb, Dental examination Z01.20 [facility] [address] [id number] [address] [place] [phone] Jan, [facility] [address] [id number] [address] [place] [phone] Jan, [facility] [address] [id number] [address] [place] [phone] Dec, [facility] [address] [id number] [address] [place] [phone] Nov, [facility] [address] [id number] [address] [place] [address] [id number] Nov, Encounter for dental exam an d cleaning w/o abnormal findings Z01.20 [facility] [address] [id number] [address] [place] [address] [id number] Nov, Dental examination Z01.20 [facility] [address] [id number] [address] [place] [phone] Oct, [facility] [address] [id number] [address] [place] [phone] Oct, Bipolar disorder, currently in remission, most recent episode unspecified F31.70 ; Moderate intellectual disability F71 and Attention-deficit hyperactivity disorder, predominantly inattentive type F90.0 [facility] [address] [id number] [address] [place] [id number] Sep, [facility] [address] [id number] [address] [place] [phone] Sep, [facility] [address] [id number] [address] [place] [phone] Aug, [facility] [address] [id number] [address] [place] [phone] Aug, Attention-deficit hyperactiv ity disorder, predominantly inattentive type F90.0 ; Moderate intellectual disability 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 and Bipolar disorder F31.9 [facility] [address] [id number] [address] [place] [address] [id number] Jul, Dental examination Z01.20 an d Dental caries K02.9 [facility] [address] [id number] [address] [place] [phone] 05 Jul, 2017 [facility] [address] [id number] [address] [place] [phone] Jun, Bipolar disorder F31.9 ; Att ention-deficit hyperactivity disorder, predominantly inattentive type F90.0 and Moderate intellectual disability F71 [facility] [address] [id number] [address] [place] [phone] 11 Jun, 2017 [facility] [address] [facility] [id number] [address] [place] [phone] 17 May, 2017 [facility] [address] [facility] [id number] [address] [place] [phone] Apr, [facility] [address] [facility] [id number] [address] [place] [id number] March, Intermittent explosive disor jocelyn F63.81 ; Attention deficit hyperactivity disorder F90.9 and Bipolar disorder F31.9 [facility] [address] [id number] [address] [place] [phone] Feb, [facility] [address] [id number] [address] [place] [phone] Jan, [facility] [address] [facility] [id number] [address] [place] [phone] 13 Dec, 2016 Encounter for immunization Z 23 [facility] [address] [facility] [id number] [address] [place] [phone] 13 Dec, 2016 Intermittent explosive disor jocelyn F63.81 ; Attention deficit hyperactivity disorder F90.9 and Bipolar disorder, currently in remission, most recent episode unspecified F31.70 [facility] [address] [facility] [id number] [address] [place] [phone] Nov, [facility] [address] [facility] [id number] [address] [place] [phone] Oct, [facility] [address] [facility] [id number] [address] [place] [phone] Oct, [facility] [address] [id number] [address] [place] [address] [id number] Oct, Dental examination Z01.20 [facility] [address] [id number] [address] [place] [phone] Sep, [facility] [address] [facility] [id number] [address] [place] [phone] Sep, [facility] [address] [facility] [id number] [address] [place] [phone] Sep, Intermittent explosive disor jocelyn F63.81 ; Bipolar disorder F31.9 and Attention deficit hyperactivity disorder F90.9 [facility] [address] [id number] [address] [place] [phone] Aug, [facility] [address] [facility] [id number] [address] [place] [phone] Aug, [facility] [address] [facility] [id number] [address] [place] [phone] Aug, [facility] [address] [facility] [id number] [address] [place] [phone] Aug, Attention deficit hyperactiv ity disorder F90.9 [facility] [address] [id number] [address] [place] [phone] Jul, [facility] [address] [facility] [id number] [address] [place] [phone] Jun, [facility] [address] [facility] [id number] [address] [place] [phone] May, [facility] [address] [id number] [address] [place] [phone] Apr, [facility] [address] [facility] [id number] [address] [place] [phone] Apr, Bipolar disorder F31.9 ; Att ention deficit hyperactivity disorder F90.9 and Intermittent explosive disorder F63.81 [facility] [address] [facility] [id number] [address] [place] [phone] March, [facility] [address] [id number] [address] [place] [phone] Feb, [facility] [address] [id number] [address] [place] [phone] Feb, [facility] [address] [id number] [address] [place] [phone] Jan, [facility] [address] [id number] [address] [place] [phone] Jan, [facility] [address] [id number] [address] [place] [phone] Dec, [facility] [address] [id number] [address] [place] [phone] Nov, [facility] [address] [facility] [id number] [address] [place] [phone] Nov, [facility] [address] [id number] [address] [place] [phone] Nov, Attention deficit hyperactiv ity disorder F90.9 ; Intermittent explosive disorder F63.81 and Bipolar disorder F31.9 [facility] [address] [id number] [address] [place] [phone] Oct, [facility] [address] [facility] [id number] [address] [place] [phone] Oct, [facility] [address] [id number] [address] [place] [phone] Sep, [facility] [address] [id number] [address] [place] [phone] Aug, [facility] [address] [id number] [address] [place] [id number] Jul, [facility] [address] [id number] [address] [place] [phone] Jul, [facility] [address] [id number] [address] [place] [phone] Jul, Anxiety, generalized 300.02 ; Bipolar disorder, unspecified 296.80 ; 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.00 ; 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 and Impulse control disorder, unspecified 312.30 [facility] [address] [id number] [address] [place] [phone] Jul, [facility] [address] [id number] [address] [place] [phone] Jun, [facility] [address] [id number] [address] [place] [phone] May, [facility] [address] [id number] [address] [place] [phone] Apr, [facility] [address] [id number] [address] [place] [phone] Apr, Bipolar disorder, unspecifie d 296.80 ; Generalized anxiety disorder 300.02 and 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.00 [facility] [address] [id number] [address] [place] [phone] Apr, [facility] [address] [id number] [address] [place] [phone] March, [facility] [address] [id number] [address] [place] [phone] March, [facility] [address] [id number] [address] [place] [phone] March, [facility] [address] [id number] [address] [place] [phone] March, [facility] [address] [id number] [address] [place] [phone] Feb, [facility] [address] [id number] [address] [place] [phone] Feb, [facility] [address] [id number] [address] [place] [phone] Jan, [facility] [address] [id number] [address] [place] [address], [place] [address] Jan, 2014 [facility] [address] [id number] [address] [place] [address], [place] [address] Jan, 2014 [facility] [address] [id number] [address] [place] [address], [place] [address] Jan, [facility] [address] [id number] [address] [place] [address], [place] [address] Jan, [facility] [address] [id number] [address] [place] [address], [place] [address] Dec, [facility] [address] [id number] [address] [place] [address], [place] [address] Dec, [facility] [address] [id number] [address] [place] [address], [place] [address] Nov, [facility] [address] [id number] [address] [place] [address], [place] [address] Nov, [facility] [address] [id number] [address] [place] [address], [place] [address] Nov, [facility] [address] [id number] [address] [place] [address], [place] [address] Oct, [facility] [address] [id number] [address] [place] [address], [place] [address] Oct, [facility] [address] [id number] [address] [place] [address], [place] [address] Oct, [facility] [address] [id number] [address] [place] [address], [place] [address] Oct, [facility] [address] [id number] [address] [place] [address], [place] [address] Oct, [facility] [address] [id number] [address] [place] [address], [place] [address] Oct, [facility] [address] [id number] [address] [place] [address], [place] [address] Sep, [facility] [address] [id number] [address] [place] [address], [place] [address] Sep, [facility] [address] [id number] [address] [place] [address], [place] [address] Sep, [facility] [address] [id number] [address] [place] [address], [place] [address] Aug, [facility] [address] [id number] [address] [place] [address], [place] [address] Aug, [facility] [address] [id number] [address] [place] [address], [place] [address] Jul, [facility] [address] [id number] [address] [place] [address], [place] [address] Jul, [facility] [address] [id number] [address] [place] [address], [place] [address] Jun, [facility] [address] [id number] [address] [place] [address], [place] [address] Jun, [facility] [address] [id number] [address] [place] [address], [place] [address] Jun, [facility] [address] [id number] [address] [place] [address], [place] [address] Jun, [facility] [address] [id number] [address] [place] [address], [place] [address] May, [facility] [address] [id number] [address] [place] [address], [place] [address] May, [facility] [address] [id number] [address] [place] [address], [place] [address] May, [facility] [address] [id number] [address] [place] [address], [place] [address] Apr, [facility] [address] [id number] [address] [place] [address], [place] [address] Apr, [facility] [address] [id number] [facility] [place] [address] Apr, [facility] [address] [id number] [facility] [place] [address] Apr, [facility] [address] [id number] [facility] [place] [address] March, [facility] [address] [id number] [address] [place] [address], [place] [address] March, [facility] [address] [id number] [address] [place] [address], [place] [address] March, [facility] [address] [id number] [address] [place] [address], [place] [address] March, [facility] [address] [id number] [address] [place] [address], [place] [address] Feb, [facility] [address] [id number] [address] [place] [address], [place] [address] Feb, [facility] [address] [id number] [address] [place] [address], [place] [address] Jan, [facility] [address] [id number] [address] [place] [address], [place] [address] Jan, [facility] [address] [id number] [address] [place] [address], [place] [address] Jan, [facility] [address] [id number] [address] [place] [address], [place] [address] Jan, [facility] [address] [id number] [address] [place] [address], [place] [address] Jan, [facility] [address] [id number] [address] [place] [address], [place] [address] Jan, [facility] [address] [id number] [address] [place] [address], [place] [address] Jan, [facility] [address] [id number] [address] [place] [address], [place] [address] Jan, [facility] [address] [id number] [facility] [place] [address] Dec, [facility] [address] [id number] [address] [place] [address], [place] [address] Dec, [facility] [address] [id number] [address] [place] [address], [place] [address] Dec, [facility] [address] [id number] [address] [place] [address], [place] [address] Dec, [facility] [address] [id number] [address] [place] [address], [place] [address] Nov, [facility] [address] [id number] [address] [place] [address], [place] [address] Nov, [facility] [address] [id number] [address] [place] [address], [place] [address] Oct, [facility] [address] [id number] [address] [place] [address], [place] [address] Oct, [facility] [address] [id number] [address] [place] [address], [place] [address] Oct, [facility] [address] [id number] [address] [place] [address], [place] [address] Oct, [facility] [address] [id number] [address] [place] [address], [place] [address] Sep, [facility] [address] [id number] [address] [place] [address], [place] [address] Sep, [facility] [address] [id number] [address] [place] [address], [place] [address] Sep, [facility] [address] [id number] [address] [place] [address], [place] [address] Sep, [facility] [address] [id number] [address] [place] [address], [place] [address] Aug, [facility] [address] [id number] [address] [place] [address], [place] [address] 10 Aug, 2013 [facility] [address] [id number] [address] [place] [address], [place] [address] 07 Aug, 2013 [facility] [address] [id number] [address] [place] [address], [place] [address] Jul, [facility] [address] [id number] [address] [place] [address], [place] [address] Jul, [facility] [address] [id number] [address] [place] [address], [place] [address] Jun, [facility] [address] [id number] [address] [place] [address], [place] [address] Jun, [facility] [address] [id number] [address] [place] [address], [place] [address] May, [facility] [address] [id number] [address] [place] [address], [place] [address] May, [facility] [address] [id number] [address] [place] [address], [place] [address] Apr, [facility] [address] [id number] [address] [place] [address], [place] [address] March, [facility] [address] [id number] [address] [place] [address], [place] [address] March, [facility] [address] [id number] [address] [place] [address], [place] [address] Feb, [facility] [address] [id number] [address] [place] [address], [place] [address] Jan, [facility] [address] [id number] [address] [place] [address], [place] [address] Jan, [facility] [address] [id number] [address] [place] [address], [place] [address] Dec, [facility] [address] [id number] [address] [place] [address], [place] [address] Dec, [facility] [address] [id number] [address] [place] [address], [place] [address] Nov, [facility] [address] [id number] [address] [place] [address], [place] [address] Nov, [facility] [address] [id number] [address] [place] [address], [place] [address] Nov, [facility] [address] [id number] [address] [place] [address], [place] [address] Nov, [facility] [address] [id number] [address] [place] [address], [place] [address] Nov, [facility] [address] [id number] [address] [place] [address], [place] [address] Oct, [facility] [address] [id number] [address] [place] [address], [place] [address] Oct, [facility] [address] [id number] [address] [place] [address], [place] [address] Oct, [facility] [address] [id number] [address] [place] [address], [place] [address] Oct, [facility] [address] [id number] [address] [place] [address], [place] [address] Oct, [facility] [address] [id number] [address] [place] [address], [place] [address] Oct, [facility] [address] [id number] [address] [place] [address], [place] [address] Oct, [facility] [address] [id number] [address] [place] [address], [place] [address] Oct, [facility] [address] [id number] [address] [place] [address], [place] [address] Sep, [facility] [address] [id number] [address] [place] [address], [place] [address] Sep, [facility] [address] [id number] [address] [place] [address], [place] [address] Sep, [facility] [address] [id number] [address] [place] [address], [place] [address] Aug, [facility] [address] [id number] [address] [place] [address], [place] [address] Aug, [facility] [address] [id number] [address] [place] [address], [place] [address] Aug, [facility] [facility] [address] [id number] [address] [place] [address], [place] [address] Aug, [facility] [address] [id number] [address] [place] [address], [place] [address] Aug, [facility] [address] [id number] [address] [place] [address], [place] [address] Jul, [facility] [address] [id number] [address] [place] [address], [place] [address] Jul, [facility] [address] [id number] [address] [place] [address], [place] [address] Jun, [facility] [address] [id number] [address] [place] [address], [place] [address] May, [facility] [address] [id number] [address] [place] [address], [place] [address] May, [facility] [address] [id number] [address] [place] [address], [place] [address] Apr, [facility] [address] [id number] [address] [place] [address], [place] [address] March, [facility] [address] [id number] [address] [place] [address], [place] [address] March, [facility] [address] [id number] [address] [place] [address], [place] [address] March, [facility] [address] [id number] [address] [place] [address], [place] [address] March, [facility] [address] [id number] [address] [place] [address], [place] [address] 10 Feb, 2012 [facility] [address] [id number] [address] [place] [address], [place] [address] Feb, [facility] [address] [id number] [address] [place] [address], [place] [address] Jan, [facility] [address] [id number] [address] [place] [address], [place] [address] 10 Dec, 2011 [facility] [address] [id number] [address] [place] [address], [place] [address] 08 Dec, 2011 [facility] [address] [id number] [address] [place] [address], [place] [address] Dec, [facility] [address] [id number] [address] [place] [address], [place] [address] Nov, [facility] [address] [id number] [address] [place] [address], [place] [address] Nov, [facility] [address] [id number] [address] [place] [address], [place] [address] Nov, [facility] [address] [id number] [address] [place] [address], [place] [address] Oct, [facility] [address] [id number] [address] [place] [address], [place] [address] Sep, [facility] [address] [id number] [address] [place] [address], [place] [address] Aug, [facility] [address] [id number] [address] [place] [address], [place] [address] Aug, [facility] [address] [id number] [address] [place] [address], [place] [address] May, [facility] [address] [id number] [address] [place] [address], [place] [address] Sep, [facility] [address] [id number] [address] [place] [address], [place] [address] Sep, IMMUNIZATIONS No Known Immunizations SOCIAL HISTORY Never Assessed REASON FOR VISIT vyvanse 04/20/2018 PLAN OF CARE VITAL SIGNS MEDICATIONS Medication Instructions Dosage Frequency Start Date End Date Duration S rené Vyvanse 70 MG Orally Once a day 1 capsule in the morning 24h March, 28 days Active RESULTS No Results PROCEDURES No Known procedures INSTRUCTIONS MEDICATIONS ADMINISTERED No Known Medications MEDICAL (GENERAL) HISTORY Type Description Date Medical History bipolar Medical History adhd Medical History anxiety
--- OUTSIDE RECORDS SUMMARY | 2020-03-18 15:35 | XMS REPORT ---
Author Author Jose Cruz FELDMAN CARLOS [facility] Address [address] [place] [address] Care Team Providers Care Professor Of Economics Name Role Phone FRANCIAANGIECARLOS Unavailable PROBLEMS Type Condition ICD9-CM Code QVR95-NP Code Onset Dates Condition S tatus SNOMED Code Problem Bipolar disorder, unspecified 296.80 Active 12646476 Problem Bipolar disorder F31.9 Active 137 05372 Problem Bipolar I disorder, most recent episode (or current) mixed, moderate 296.62 Active 257901927 Problem Encounter for long-term (current) use of other medications V58.69 Active 629686511 Problem 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 Ac tive 05557384 Problem 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 314.00 Active 08371415 Problem Generalized anxiety disorder 300.02 A ctive 05937791 Problem Attention-deficit hyperactiv ity disorder, predominantly inattentive type F90.0 Active 18065796 Problem Intellectual disability F79 Active 37560516 Problem Attention deficit hyperactivity disorder F90.9 Active 247246990 Problem Intermittent explosive disorder F63.81 Active 37160967 Problem Moderate intellectual disability F71 Active 67957472 Problem Bipolar disorder, currently in remission, most recent episode unspecified F31.70 Active 37474530 ALLERGIES No Information ENCOUNTERS Encounter Location Date Diagnosis [facility] [address] [facility] [id number] [address] [place] [address] May, Bipolar disorder, currently in remission, most recent episode unspecified F31.70 [facility] [address] [facility] [id number] [address] [place] [address] May, Bipolar disorder, currently in remission, most recent episode unspecified F31.70 ; Moderate intellectual disability F71 and Attention-deficit hyperactivity disorder, predominantly inattentive type F90.0 [facility] [address] [facility] [id number] [address] [place] [address] Apr, Bipolar disorder, unspecifie d F31.9 [facility] [address] [id number] [address] [place] [address] Apr, [facility] [address] [id number] [address] [place] [address] Apr, [facility] [address] [id number] [address] [place] [address] Apr, [facility] [address] [id number] [address] [place] [address] March, [facility] [address] [id number] [address] [place] [address] March, Bipolar disorder, currently in remission, most recent episode unspecified F31.70 ; Moderate intellectual disability 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 [address] [id number] [place] [address] [id number] Feb, Dental examination Z01.20 [facility] [address] [id number] [address] [place] [address] Jan, [facility] [address] [id number] [address] [place] [address] Jan, [facility] [address] [id number] [address] [place] [address] Dec, [facility] [address] [id number] [address] [place] [phone] Nov, [facility] [address] [id number] [place] [address] [id number] Nov, Encounter for dental exam an d cleaning w/o abnormal findings Z01.[address] 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 and Attention-deficit hyperactivity disorder, predominantly inattentive type F90.0 [facility] [address] [id number] [address] [place] [phone] Sep, [facility] [address] [id number] [address] [place] [phone] Sep, [facility] [address] [id number] [address] [place] [phone] Aug, [facility] [address] [id number] [address] [place] [address] Aug, Attention-deficit hyperactiv ity disorder, predominantly inattentive type F90.0 ; Moderate intellectual disability 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 [facility] [address] [id number] [address] [place] [address] Jun, [facility] [address] [id number] [address] [place] [address] May, [facility] [address] [id number] [address] [place] [address] Apr, [facility] [address] [id number] [address] [place] [address] March, Intermittent explosive disor jocelyn F63.81 ; Attention deficit hyperactivity disorder F90.9 and Bipolar disorder F31.9 [facility] [address] [facility] [id number] [address] [place] [address] Feb, [facility] [address] [facility] [id number] [address] [place] [phone] Jan, [facility] [address] [facility] [id number] [address] [place] [address] Dec, Encounter for immunization Z 23 [facility] [address] [facility] [id number] [address] [place] [phone] 13 Dec, 2016 Intermittent explosive disor jocelyn F63.81 ; Attention deficit hyperactivity disorder F90.9 and Bipolar disorder, currently in remission, most recent episode unspecified F31.70 [facility] [address] [facility] [id number] [address] [place] [phone] Nov, [facility] [address] [facility] [id number] [address] [place] [address] Oct, [facility] [address] [facility] [id number] [address] [place] [address] Oct, [facility] [address] [id number] [address] [place] [id number] Oct, Dental examination Z01.20 [facility] [address] [facility] [id number] [address] [place] [phone] Sep, [facility] [address] [facility] [id number] [address] [place] [address] Sep, [facility] [address] [facility] [id number] [address] [place] [address] Sep, Intermittent explosive disor jocelyn F63.81 ; Bipolar disorder F31.9 and Attention deficit hyperactivity disorder F90.9 [facility] [address] [facility] [id number] [address] [place] [phone] Aug, [facility] [address] [id number] [address] [place] [phone] Aug, [facility] [address] [id number] [address] [place] [address] Aug, [facility] [address] [id number] [address] [place] [phone] Aug, Attention deficit hyperactiv ity disorder F90.9 [facility] [address] [id number] [address] [place] [address] Jul, [facility] [address] [id number] [address] [place] [phone] Jun, [facility] [address] [id number] [address] [place] [phone] May, [facility] [address] [id number] [address] [place] [address] Apr, [facility] [address] [id number] [address] [place] [address] Apr, Bipolar disorder F31.9 ; Att ention deficit hyperactivity disorder F90.9 and Intermittent explosive disorder F63.81 [facility] [address] [id number] [address] [place] [phone] March, [facility] [address] [id number] [address] [place] [phone] Feb, [facility] [address] [id number] [address] [place] [address] Feb, [facility] [address] [id number] [address] [place] [phone] Jan, [facility] [address] [id number] [address] [place] [phone] Jan, [facility] [address] [facility] [id number] [address] [place] [phone] Dec, [facility] [address] [id number] [address] [place] [address] Nov, [facility] [address] [facility] [id number] [address] [place] [address] Nov, [facility] [address] [facility] [id number] [address] [place] [address] Nov, Attention deficit hyperactiv ity disorder F90.9 ; Intermittent explosive disorder F63.81 and Bipolar disorder F31.9 [facility] [address] [facility] [id number] [address] [place] [phone] Oct, [facility] [address] [facility] [id number] [address] [place] [phone] Oct, [facility] [address] [place] [id number] [address] [place] [address] Sep, [facility] [address] [place] [id number] [address] [place] [phone] Aug, [facility] [address] [place] [id number] [address] [place] [phone] Jul, [facility] [address] [facility] [id number] [address] [place] [phone] Jul, [facility] [address] [place] [id number] [address] [place] [address] Jul, Anxiety, generalized 300.02 ; Bipolar disorder, unspecified 296.80 ; 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.00 ; 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 and Impulse control disorder, unspecified 312.30 [facility] [address] [facility] [id number] [address] [place] [phone] Jul, [facility] [address] [facility] [id number] [address] [place] [phone] Jun, [facility] [address] [facility] [id number] [address] [place] [phone] May, [facility] [address] [place] [id number] [address] [place] [phone] Apr, [facility] [address] [id number] [address] [place] [address] Apr, Bipolar disorder, unspecifie d 296.80 ; Generalized anxiety disorder 300.02 and 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.00 [facility] [address] [id number] [address] [place] [phone] Apr, [facility] [address] [id number] [address] [place] [phone] March, [facility] [address] [id number] [address] [place] [phone] March, [facility] [address] [id number] [address] [place] [address] March, [facility] [address] [id number] [address] [place] [phone] March, [facility] [address] [id number] [address] [place] [phone] Feb, [facility] [address] [id number] [address] [place] [phone] Feb, [facility] [address] [id number] [address] [place] [phone] Jan, [facility] [address] [id number] [address] [place] [phone] Jan, [facility] [address] [id number] [address] [place] [phone] Jan, [facility] [address] [id number] [address] [place] [phone] Jan, [facility] [address] [id number] [address] [place] [phone] Jan, [facility] [address] [id number] [address] [place] [phone] Dec, [facility] [address] [id number] [address] [place] [address], [place] [address] Dec, [facility] [address] [id number] [address] [place] [address], [place] [address] Nov, [facility] [address] [id number] [address] [place] [address], [place] [address] Nov, [facility] [address] [id number] [address] [place] [address], [place] [address] Nov, [facility] [address] [id number] [address] [place] [address], [place] [address] Oct, [facility] [address] [id number] [address] [place] [address], [place] [address] Oct, [facility] [address] [id number] [address] [place] [address], [place] [address] Oct, [facility] [address] [id number] [address] [place] [address], [place] [address] Oct, [facility] [address] [id number] [address] [place] [address], [place] [address] Oct, [facility] [address] [id number] [address] [place] [address], [place] [address] Oct, [facility] [address] [id number] [address] [place] [address], [place] [address] Sep, [facility] [address] [id number] [address] [place] [address], [place] [address] Sep, [facility] [address] [id number] [address] [place] [address], [place] [address] Sep, [facility] [address] [id number] [address] [place] [address], [place] [address] Aug, [facility] [address] [id number] [address] [place] [address], [place] [address] Aug, [facility] [address] [id number] [address] [place] [address], [place] [address] Jul, [facility] [address] [id number] [address] [place] [address], [place] [address] Jul, [facility] [address] [id number] [address] [place] [address], [place] [address] Jun, [facility] [address] [id number] [address] [place] [address], [place] [address] Jun, [facility] [address] [id number] [address] [place] [address], [place] [address] Jun, [facility] [address] [id number] [address] [place] [address], [place] [address] Jun, [facility] [address] [id number] [address] [place] [address], [place] [address] May, [facility] [address] [id number] [address] [place] [address], [place] [address] May, [facility] [address] [id number] [address] [place] [address], [place] [address] May, [facility] [address] [id number] [address] [place] [address], [place] [address] Apr, [facility] [address] [id number] [address] [place] [address], [place] [address] Apr, [facility] [address] [id number] [address] [place] [address], [place] [address] Apr, [facility] [address] [id number] [address] [place] [address], [place] [address] Apr, [facility] [address] [id number] [address] [place] [address], [place] [address] March, [facility] [address] [id number] [address] [place] [address], [place] [address] March, [facility] [address] [id number] [address] [place] [address], [place] [address] March, [facility] [address] [id number] [address] [place] [address], [place] [address] March, [facility] [address] [id number] [facility] [place] [address] Feb, [facility] [address] [id number] [address] [place] [address], [place] [address] Feb, [facility] [address] [id number] [address] [place] [address], [place] [address] Jan, [facility] [address] [id number] [address] [place] [address], [place] [address] Jan, [facility] [address] [id number] [address] [place] [address], [place] [address] Jan, [facility] [address] [id number] [address] [place] [address], [place] [address] Jan, [facility] [address] [id number] [address] [place] [address], [place] [address] Jan, [facility] [address] [id number] [address] [place] [address], [place] [address] Jan, [facility] [address] [id number] [address] [place] [address], [place] [address] Jan, [facility] [address] [id number] [address] [place] [address], [place] [address] Jan, [facility] [address] [id number] [address] [place] [address], [place] [address] Dec, [facility] [address] [id number] [address] [place] [address], [place] [address] Dec, [facility] [address] [id number] [address] [place] [address], [place] [address] Dec, [facility] [address] [id number] [address] [place] [address], [place] [address] Dec, [facility] [address] [id number] [address] [place] [address], [place] [address] Nov, [facility] [address] [id number] [address] [place] [address], [place] [address] Nov, [facility] [address] [id number] [address] [place] [address], [place] [address] Oct, [facility] [address] [id number] [address] [place] [address], [place] [address] Oct, [facility] [address] [id number] [address] [place] [address], [place] [address] Oct, [facility] [address] [id number] [address] [place] [address], [place] [address] Oct, [facility] [address] [id number] [address] [place] [address], [place] [address] Sep, [facility] [address] [id number] [address] [place] [address], [place] [address] Sep, [facility] [address] [id number] [address] [place] [address], [place] [address] Sep, [facility] [address] [id number] [address] [place] [address], [place] [address] Sep, [facility] [address] [id number] [address] [place] [address], [place] [address] Aug, [facility] [address] [id number] [address] [place] [address], [place] [address] Aug, [facility] [address] [id number] [address] [place] [address], [place] [address] Aug, [facility] [address] [id number] [address] [place] [address], [place] [address] Jul, [facility] [address] [id number] [address] [place] [address], [place] [address] Jul, [facility] [address] [id number] [address] [place] [address], [place] [address] Jun, [facility] [address] [id number] [address] [place] [address], [place] [address] Jun, [facility] [address] [id number] [address] [place] [address], [place] [address] May, [facility] [address] [id number] [address] [place] [address], [place] [address] May, [facility] [address] [id number] [address] [place] [address], [place] [address] Apr, [facility] [address] [id number] [address] [place] [address], [place] [address] March, [facility] [address] [id number] [address] [place] [address], [place] [address] March, [facility] [address] [id number] [address] [place] [address], [place] [address] Feb, [facility] [address] [id number] [address] [place] [address], [place] [address] Jan, [facility] [address] [id number] [address] [place] [address], [place] [address] Jan, [facility] [address] [id number] [address] [place] [address], [place] [address] Dec, [facility] [address] [id number] [address] [place] [address], [place] [address] Dec, [facility] [address] [id number] [address] [place] [address], [place] [address] Nov, [facility] [address] [id number] [address] [place] [address], [place] [address] Nov, [facility] [address] [id number] [address] [place] [address], [place] [address] Nov, [facility] [address] [id number] [address] [place] [address], [place] [address] Nov, [facility] [address] [id number] [address] [place] [address], [place] [address] Nov, [facility] [address] [id number] [address] [place] [address], [place] [address] 31 Oct, 2012 [facility] [address] [id number] [address] [place] [address], [place] [address] 31 Oct, 2012 [facility] [address] [id number] [address] [place] [address], [place] [address] Oct, [facility] [address] [id number] [address] [place] [address], [place] [address] Oct, [facility] [address] [id number] [address] [place] [address], [place] [address] Oct, [facility] [address] [id number] [address] [place] [address], [place] [address] Oct, [facility] [address] [id number] [address] [place] [address], [place] [address] Oct, [facility] [address] [id number] [address] [place] [address], [place] [address] Oct, [facility] [address] [id number] [address] [place] [address], [place] [address] Sep, [facility] [address] [id number] [address] [place] [address], [place] [address] Sep, [facility] [address] [id number] [address] [place] [address], [place] [address] Sep, [facility] [address] [id number] [address] [place] [address], [place] [address] Aug, [facility] [facility] [address] [id number] [address] [place] [address], [place] [address] 17 Aug, 2012 [facility] [address] [id number] [address] [place] [address], [place] [address] 10 Aug, 2012 [facility] [address] [id number] [address] [place] [address], [place] [address] 09 Aug, 2012 [facility] [address] [id number] [address] [place] [address], [place] [address] 08 Aug, 2012 [facility] [address] [id number] [address] [place] [address], [place] [address] Jul, [facility] [address] [id number] [address] [place] [address], [place] [address] Jul, [facility] [address] [id number] [address] [place] [address], [place] [address] Jun, [facility] [address] [id number] [address] [place] [address], [place] [address] May, [facility] [address] [id number] [address] [place] [address], [place] [address] May, [facility] [address] [id number] [address] [place] [address], [place] [address] Apr, [facility] [address] [id number] [address] [place] [address], [place] [address] March, [facility] [address] [id number] [address] [place] [address], [place] [address] March, [facility] [address] [id number] [address] [place] [address], [place] [address] March, [facility] [address] [id number] [address] [place] [address], [place] [address] March, [facility] [address] [id number] [address] [place] [address], [place] [address] Feb, [facility] [address] [id number] [address] [place] [address], [place] [address] 05 Feb, 2012 [facility] [address] [id number] [address] [place] [address], [place] [address] Jan, [facility] [address] [id number] [address] [place] [address], [place] [address] Dec, [facility] [address] [id number] [address] [place] [address], [place] [address] 08 Dec, 2011 [facility] [address] [id number] [address] [place] [phone] Dec, [facility] [address] [id number] [address] [place] [phone] Nov, [facility] [address] [id number] [address] [place] [id number] Nov, [facility] [address] [id number] [address] [place] [phone] Nov, [facility] [address] [id number] [address] [place] [phone] Oct, [facility] [address] [id number] [address] [place] [phone] Sep, [facility] [address] [id number] [address] [place] [id number] Aug, [facility] [address] [id number] [address] [place] [phone] Aug, [facility] [address] [id number] [address] [place] [address] May, [facility] [address] [id number] [address] [place] [phone] Sep, [facility] [address] [id number] [address] [place] [id number] Sep, IMMUNIZATIONS No Known Immunizations SOCIAL HISTORY Never Assessed REASON FOR VISIT med refill PLAN OF CARE VITAL SIGNS MEDICATIONS Medication Instructions Dosage Frequency Start Date End Date Duration S tatus Clonidine HCl 0.1 MG Orally one tablet in the mor chloe, 2 tablets at 2pm and 1 tablet at bedtime 1 tablet March, 30 days Activ e RESULTS No Results PROCEDURES No Known procedures INSTRUCTIONS MEDICATIONS ADMINISTERED No Known Medications MEDICAL (GENERAL) HISTORY Type Description Date Medical History bipolar Medical History adhd Medical History anxiety
--- OUTSIDE RECORDS SUMMARY | 2020-03-18 15:35 | XMS REPORT ---
Author Author Jose Cruz [facility] Address [address] [place] [address] Phone Unavailable Care Team Providers Care Physical Therapy Aide Name Role Phone AYDIN [facility] Unavailable Unavailable PROBLEMS Type Condition ICD9-CM Code LNE59-XY Code Onset Dates Condition S tatus SNOMED Code Problem Bipolar disorder, unspecified 296.80 Active 76848807 Problem Bipolar disorder F31.9 Active 137 73955 Problem Bipolar I disorder, most recent episode (or current) mixed, moderate 296.62 Active 318614285 Problem Encounter for long-term (current) use of other medications V58.69 Active 343652862 Problem 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 Ac tive 80400725 Problem 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 314.00 Active 92482753 Problem Generalized anxiety disorder 300.02 A ctive 34440860 Problem Attention-deficit hyperactiv ity disorder, predominantly inattentive type F90.0 Active 98197162 Problem Intellectual disability F79 Active 18132189 Problem Attention deficit hyperactivity disorder F90.9 Active 748050419 Problem Intermittent explosive disorder F63.81 Active 27997690 Problem Moderate intellectual disability F71 Active 93678470 Problem Bipolar disorder, currently in remission, most recent episode unspecified F31.70 Active 64427086 ALLERGIES No Known Allergies ENCOUNTERS Encounter Location Date Diagnosis [id number] [place] [address] [id number] Jun, [facility] [address] [id number] [address] [place] [id number] May, Bipolar disorder, currently in remission, most recent episode unspecified F31.70 [facility] [address] [facility] [id number] [address] [place] [phone] May, Bipolar disorder, currently in remission, most recent episode unspecified F31.70 [facility] [address] [facility] [id number] [address] [place] [phone] May, Bipolar disorder, currently in remission, most recent episode unspecified F31.70 ; Moderate intellectual disability F71 and Attention-deficit hyperactivity disorder, predominantly inattentive type F90.0 [facility] [address] [id number] [address] [place] [phone] Apr, Bipolar disorder, unspecifie d F31.9 [facility] [address] [id number] [address] [place] [id number] Apr, [facility] [address] [id number] [address] [place] [phone] Apr, [facility] [address] [id number] [address] [place] [phone] Apr, [facility] [address] [id number] [address] [place] [id number] March, [facility] [address] [id number] [address] [place] [phone] March, Bipolar disorder, currently in remission, most recent episode unspecified F31.70 ; Moderate intellectual disability F71 and Attention-deficit hyperactivity disorder, predominantly inattentive type F90.0 [facility] [address] [id number] [address] [place] [id number] Feb, [facility] [address] [id number] [address] [place] [address] [id number] Feb, Dental examination Z01.20 [facility] [address] [id number] [address] [place] [phone] Jan, [facility] [address] [id number] [address] [place] [id number] Jan, [facility] [address] [id number] [address] [place] [id number] Dec, [facility] [address] [id number] [address] [place] [phone] Nov, [facility] [address] [id number] [address] [place] [address] [id number] Nov, Encounter for dental exam an d cleaning w/o abnormal findings Z01.20 [facility] [address] [id number] [address] [place] [address] [id number] Nov, Dental examination Z01.20 [facility] [address] [id number] [address] [place] [phone] Oct, [facility] [address] [id number] [address] [place] [phone] Oct, Bipolar disorder, currently in remission, most recent episode unspecified F31.70 ; Moderate intellectual disability F71 and Attention-deficit hyperactivity disorder, predominantly inattentive type F90.0 [facility] [address] [id number] [address] [place] [phone] Sep, [facility] [address] [id number] [address] [place] [phone] Sep, [facility] [address] [id number] [address] [place] [phone] Aug, [facility] [address] [id number] [address] [place] [id number] Aug, Attention-deficit hyperactiv ity disorder, predominantly inattentive type F90.0 ; Moderate intellectual disability 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 and Bipolar disorder F31.9 [facility] [address] [id number] [address] [place] [address] [id number] Jul, Dental examination Z01.20 an d Dental caries K02.9 [facility] [address] [id number] [address] [place] [phone] Jul, [facility] [address] [id number] [address] [place] [phone] Jun, Bipolar disorder F31.9 ; Att ention-deficit hyperactivity disorder, predominantly inattentive type F90.0 and Moderate intellectual disability F71 [facility] [address] [id number] [address] [place] [phone] Jun, [facility] [address] [id number] [address] [place] [phone] 17 May, 2017 [facility] [address] [facility] [id number] [address] [place] [phone] Apr, [facility] [address] [facility] [id number] [address] [place] [id number] March, Intermittent explosive disor jocelyn F63.81 ; Attention deficit hyperactivity disorder F90.9 and Bipolar disorder F31.9 [facility] [address] [id number] [address] [place] [id number] Feb, [facility] [address] [facility] [id number] [address] [place] [phone] Jan, [facility] [address] [facility] [id number] [address] [place] [phone] 13 Dec, 2016 Encounter for immunization Z 23 [facility] [address] [facility] [id number] [address] [place] [id number] 13 Dec, 2016 Intermittent explosive disor jocelyn F63.81 ; Attention deficit hyperactivity disorder F90.9 and Bipolar disorder, currently in remission, most recent episode unspecified F31.70 [facility] [address] [facility] [id number] [address] [place] [phone] Nov, [facility] [address] [facility] [id number] [address] [place] [phone] Oct, [facility] [address] [facility] [id number] [address] [place] [phone] Oct, [facility] [address] [id number] [address] [place] [address] [id number] Oct, Dental examination Z01.20 [facility] [address] [facility] [id number] [address] [place] [phone] Sep, [facility] [address] [facility] [id number] [address] [place] [phone] Sep, [facility] [address] [facility] [id number] [address] [place] [id number] Sep, Intermittent explosive disor jocelyn F63.81 ; Bipolar disorder F31.9 and Attention deficit hyperactivity disorder F90.9 [facility] [address] [id number] [address] [place] [id number] Aug, [facility] [address] [id number] [address] [place] [phone] Aug, [facility] [address] [id number] [address] [place] [phone] Aug, [facility] [address] [id number] [address] [place] [phone] Aug, Attention deficit hyperactiv ity disorder F90.9 [facility] [address] [id number] [address] [place] [id number] Jul, [facility] [address] [id number] [address] [place] [id number] Jun, [facility] [address] [id number] [address] [place] [phone] May, [facility] [address] [id number] [address] [place] [phone] Apr, [facility] [address] [facility] [id number] [address] [place] [phone] Apr, Bipolar disorder F31.9 ; Att ention deficit hyperactivity disorder F90.9 and Intermittent explosive disorder F63.81 [facility] [address] [id number] [address] [place] [id number] March, [facility] [address] [id number] [address] [place] [phone] Feb, [facility] [address] [id number] [address] [place] [phone] Feb, [facility] [address] [id number] [address] [place] [phone] Jan, [facility] [address] [id number] [address] [place] [id number] Jan, [facility] [address] [place] [id number] [address] [place] [phone] Dec, [facility] [address] [place] [id number] [address] [place] [phone] Nov, [facility] [address] [place] [id number] [address] [place] [phone] Nov, [facility] [address] [place] [id number] [address] [place] [phone] Nov, Attention deficit hyperactiv ity disorder F90.9 ; Intermittent explosive disorder F63.81 and Bipolar disorder F31.9 [facility] [address] [place] [id number] [address] [place] [phone] Oct, [facility] [address] [place] [id number] [address] [place] [phone] Oct, [facility] [address] [place] [id number] [address] [place] [phone] Sep, [facility] [address] [place] [id number] [address] [place] [phone] Aug, [facility] [address] [place] [id number] [address] [place] [phone] Jul, [facility] [address] [place] [id number] [address] [place] [id number] Jul, [facility] [address] [place] [id number] [address] [place] [id number] Jul, Anxiety, generalized 300.02 ; Bipolar disorder, unspecified 296.80 ; 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.00 ; 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 and Impulse control disorder, unspecified 312.30 [facility] [address] [place] [id number] [address] [place] [phone] Jul, [facility] [address] [place] [id number] [address] [place] [phone] Jun, [facility] [address] [id number] [address] [place] [phone] May, [facility] [address] [id number] [address] [place] [phone] Apr, [facility] [address] [id number] [address] [place] [phone] Apr, Bipolar disorder, unspecifie d 296.80 ; Generalized anxiety disorder 300.02 and 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.00 [facility] [address] [id number] [address] [place] [id number] Apr, [facility] [address] [id number] [address] [place] [id number] March, [facility] [address] [id number] [address] [place] [phone] March, [facility] [address] [id number] [address] [place] [phone] March, [facility] [address] [id number] [address] [place] [id number] March, [facility] [address] [id number] [address] [place] [id number] Feb, [facility] [address] [id number] [address] [place] [phone] Feb, [facility] [address] [id number] [address] [place] [phone] Jan, [facility] [address] [id number] [address] [place] [phone] Jan, [facility] [address] [id number] [address] [place] [phone] Jan, [facility] [address] [id number] [address] [place] [phone] Jan, [facility] [address] [id number] [address] [place] [address], [place] [address] Jan, [facility] [address] [id number] [address] [address], [place] [address] Dec, [facility] [address] [id number] [address] [place] [address], [place] [address] Dec, [facility] [address] [id number] [address] [place] [address], [place] [address] Nov, [facility] [address] [id number] [address] [place] [address], [place] [address] Nov, [facility] [address] [id number] [address] [place] [address], [place] [address] Nov, [facility] [address] [id number] [address] [place] [address], [place] [address] Oct, [facility] [address] [id number] [address] [place] [address], [place] [address] Oct, [facility] [address] [id number] [address] [place] [address], [place] [address] Oct, [facility] [address] [id number] [address] [place] [address], [place] [address] Oct, [facility] [address] [id number] [address] [place] [address], [place] [address] Oct, [facility] [address] [id number] [address] [place] [address], [place] [address] Oct, [facility] [address] [id number] [address] [place] [address], [place] [address] Sep, [facility] [address] [id number] [address] [place] [address], [place] [address] Sep, [facility] [address] [id number] [address] [place] [address], [place] [address] Sep, [facility] [address] [id number] [address] [place] [address], [place] [address] Aug, [facility] [address] [id number] [address] [place] [address], [place] [address] Aug, [facility] [address] [id number] [address] [place] [address], [place] [address] Jul, [facility] [address] [id number] [address] [place] [address], [place] [address] Jul, [facility] [address] [id number] [address] [place] [address], [place] [address] Jun, [facility] [address] [id number] [address] [place] [address], [place] [address] Jun, [facility] [address] [id number] [address] [place] [address], [place] [address] Jun, [facility] [address] [id number] [address] [place] [address], [place] [address] Jun, [facility] [address] [id number] [address] [place] [address], [place] [address] May, [facility] [address] [id number] [address] [place] [address], [place] [address] May, [facility] [address] [id number] [address] [place] [address], [place] [address] May, [facility] [address] [id number] [address] [place] [address], [place] [address] Apr, [facility] [address] [id number] [address] [place] [address], [place] [address] Apr, [facility] [address] [id number] [address] [place] [address], [place] [address] Apr, [facility] [address] [id number] [address] [place] [address], [place] [address] Apr, [facility] [address] [id number] [address] [place] [address], [place] [address] March, [facility] [address] [id number] [address] [place] [address], [place] [address] March, [facility] [address] [id number] [facility] [place] [address] March, [facility] [address] [id number] [address] [place] [address], [place] [address] March, [facility] [address] [id number] [address] [place] [address], [place] [address] Feb, [facility] [address] [id number] [address] [place] [address], [place] [address] Feb, [facility] [address] [id number] [address] [place] [address], [place] [address] Jan, [facility] [address] [id number] [address] [place] [address], [place] [address] Jan, [facility] [address] [id number] [address] [address], [place] [address] Jan, [facility] [address] [id number] [address] [place] [address], [place] [address] Jan, [facility] [address] [id number] [address] [place] [address], [place] [address] Jan, [facility] [address] [id number] [address] [place] [address], [place] [address] Jan, [facility] [address] [id number] [address] [place] [address], [place] [address] Jan, [facility] [address] [id number] [address] [place] [address], [place] [address] Jan, [facility] [address] [id number] [address] [place] [address], [place] [address] Dec, [facility] [address] [id number] [address] [place] [address], [place] [address] Dec, [facility] [address] [id number] [address] [place] [address], [place] [address] Dec, [facility] [address] [id number] [address] [place] [address], [place] [address] Dec, [facility] [address] [id number] [address] [address], [place] [address] Nov, [facility] [address] [id number] [address] [place] [address], [place] [address] Nov, [facility] [address] [id number] [address] [place] [address], [place] [address] Oct, [facility] [address] [id number] [address] [place] [address], [place] [address] Oct, [facility] [address] [id number] [address] [place] [address], [place] [address] Oct, [facility] [address] [id number] [address] [address], [place] [address] Oct, [facility] [address] [id number] [address] [place] [address], [place] [address] Sep, [facility] [address] [id number] [address] [place] [address], [place] [address] Sep, [facility] [address] [id number] [address] [address], [place] [address] Sep, [facility] [address] [id number] [address] [address], [place] [address] Sep, [facility] [address] [id number] [address] [address], [place] [address] Aug, [facility] [address] [id number] [address] [place] [address], [place] [address] Aug, [facility] [address] [id number] [address] [address], [place] [address] 07 Aug, 2013 [facility] [address] [id number] [address] [place] [address], [place] [address] 12 Jul, 2013 [facility] [address] [id number] [address] [place] [address], [place] [address] Jul, [facility] [address] [id number] [address] [place] [address], [place] [address] Jun, [facility] [address] [id number] [address] [place] [address], [place] [address] Jun, [facility] [address] [id number] [address] [place] [address], [place] [address] May, [facility] [address] [id number] [address] [place] [address], [place] [address] May, [facility] [address] [id number] [address] [place] [address], [place] [address] Apr, [facility] [address] [id number] [address] [place] [address], [place] [address] March, [facility] [address] [id number] [address] [place] [address], [place] [address] March, [facility] [address] [id number] [address] [place] [address], [place] [address] Feb, [facility] [address] [id number] [address] [place] [address], [place] [address] Jan, [facility] [address] [id number] [address] [place] [address], [place] [address] Jan, [facility] [address] [id number] [address] [place] [address], [place] [address] Dec, [facility] [address] [id number] [address] [place] [address], [place] [address] Dec, [facility] [address] [id number] [address] [address], [place] [address] Nov, [facility] [address] [id number] [address] [address], [place] [address] Nov, [facility] [address] [id number] [address] [address], [place] [address] Nov, [facility] [address] [id number] [address] [place] [address], [place] [address] 16 Nov, 2012 [facility] [address] [id number] [address] [address], [place] [address] Nov, [facility] [address] [id number] [address] [address], [place] [address] Oct, [facility] [address] [id number] [address] [place] [address], [place] [address] Oct, [facility] [address] [id number] [address] [place] [address], [place] [address] Oct, [facility] [address] [id number] [address] [place] [address], [place] [address] Oct, [facility] [address] [id number] [address] [place] [address], [place] [address] Oct, [facility] [address] [id number] [address] [address], [place] [address] Oct, [facility] [address] [id number] [address] [place] [address], [place] [address] 05 Oct, 2012 [facility] [address] [id number] [address] [place] [address], [place] [address] 04 Oct, 2012 [facility] [address] [id number] [address] [place] [address], [place] [address] Sep, [facility] [address] [id number] [address] [place] [address], [place] [address] Sep, [facility] [address] [id number] [address] [place] [address], [place] [address] 06 Sep, 2012 [facility] [address] [id number] [address] [place] [address], [place] [address] 17 Aug, 2012 [facility] [address] [id number] [address] [place] [address], [place] [address] 17 Aug, 2012 [facility] [address] [id number] [address] [place] [address], [place] [address] 10 Aug, 2012 [facility] [address] [id number] [address] [place] [address], [place] [address] Aug, [facility] [address] [id number] [address] [place] [address], [place] [address] Aug, [facility] [address] [id number] [address] [place] [address], [place] [address] Jul, [facility] [address] [id number] [address] [place] [address], [place] [address] Jul, [facility] [address] [id number] [address] [place] [address], [place] [address] Jun, [facility] [address] [id number] [address] [place] [address], [place] [address] May, [facility] [address] [id number] [address] [place] [address], [place] [address] May, [facility] [address] [id number] [address] [place] [address], [place] [address] Apr, [facility] [address] [id number] [address] [place] [address], [place] [address] March, [facility] [address] [id number] [address] [place] [address], [place] [address] March, [facility] [address] [id number] [address] [place] [address], [place] [address] March, [facility] [address] [id number] [address] [place] [address], [place] [address] March, [facility] [address] [id number] [address] [place] [address], [place] [address] Feb, [facility] [address] [id number] [address] [place] [address], [place] [address] Feb, [facility] [address] [id number] [address] [place] [address], [place] [address] Jan, [facility] [address] [id number] [address] [place] [id number] Dec, [facility] [address] [id number] [address] [place] [address] Dec, [facility] [address] [id number] [address] [place] [phone] Dec, [facility] [address] [id number] [address] [place] [address] Nov, [facility] [address] [id number] [address] [place] [address] Nov, [facility] [address] [id number] [address] [place] [address] Nov, [facility] [address] [id number] [address] [place] [phone] Oct, [facility] [address] [id number] [address] [place] [phone] Sep, [facility] [address] [id number] [address] [place] [address] Aug, [facility] [address] [id number] [address] [place] [phone] Aug, [facility] [address] [id number] [address] [place] [phone] May, [facility] [address] [id number] [address] [place] [phone] Sep, [facility] [address] [id number] [address] [place] [phone] Sep, IMMUNIZATIONS No Known Immunizations SOCIAL HISTORY Never Assessed REASON FOR VISIT PLAN OF CARE Activity Details Follow Up prn Reason: VITAL SIGNS MEDICATIONS Medication Instructions Dosage Frequency Start Date End Date Duration S rené Clonidine HCl 0.1 MG Orally one tablet in the mor chloe, 2 tablets at 2pm and 1 tablet at bedtime 1 tablet March, 30 days Activ e Zyprexa 20 TAKE ONE TABLET BY MOUTH EVERY NIGHT AT BEDTIME 30 Active Fluvoxamine Maleate 100 TAKE THREE TABLETS BY MOUTH EV POLY NIGHT AT BEDTIME 30 Active Fish Oil by Oral route Jun, Not- Taking Seroquel 200 MG Orally at night 1 tablet Jan, 30 days Not-Taking Vyvanse 70 MG Orally Once a day 1 capsule in the morning 24h Jan, 28 days Active Rozerem 8 MG Orally at bedtime as needed 1 tablet Jan, 30 days Not-Taking Fluvoxamine Maleate 100 MG Orally once at night 3 tablets Apr, 30 days Not-Taking Rozerem 8 TAKE ONE TABLET BY MOUTH EVERY NIGHT AT BEDTIME 30 Active Docusate Sodium 100 Orally Once a day 1 capsule as needed 24h 30 Not-Taking Zyprexa 10 MG Orally at bedtime 1 tablet 30 days Not-Taking RESULTS No Results PROCEDURES Procedure Date Ordered Result Body Site PROPHYLAXIS - ADULT March 15, 2018 TOPICAL FLUORIDE VARNISH March 15, 2018 INSTRUCTIONS MEDICATIONS ADMINISTERED No Known Medications MEDICAL (GENERAL) HISTORY Type Description Date Medical History bipolar Medical History adhd Medical History anxiety
--- OUTSIDE RECORDS SUMMARY | 2020-03-18 15:35 | XMS REPORT ---
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 Name Role Phone FRANCIAANGIECARLOS Unavailable PROBLEMS Type Condition ICD9-CM Code [id number] Code Onset Dates Condition S tatus SNOMED Code Problem Bipolar disorder, unspecified 296.80 Active 05640096 Problem Bipolar disorder F31.9 Active 137 09427 Problem Bipolar I disorder, most recent episode (or current) mixed, moderate 296.62 Active 955192838 Problem Encounter for long-term (current) use of other medications V58.69 Active 899429423 Problem 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 Ac tive 51184123 Problem 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 314.00 Active 10882812 Problem Generalized anxiety disorder 300.02 A ctive 61040205 Problem Attention-deficit hyperactiv ity disorder, predominantly inattentive type F90.0 Active 67423688 Problem Intellectual disability F79 Active 73138704 Problem Attention deficit hyperactivity disorder F90.9 Active 264893486 Problem Intermittent explosive disorder F63.81 Active 40974677 Problem Moderate intellectual disability F71 Active 69636960 Problem Bipolar disorder, currently in remission, most recent episode unspecified F31.70 Active 71732662 ALLERGIES No Information ENCOUNTERS Encounter Location Date Diagnosis [facility] [address] [facility] [id number] [address] [place] [address] May, Bipolar disorder, currently in remission, most recent episode unspecified F31.70 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 [address] [facility] [id number] [address] [place] [address] Apr, Bipolar disorder, unspecifie d F31.9 [facility] [address] [id number] [address] [place] [address] Apr, [facility] [address] [id number] [address] [place] [address] Apr, [facility] [address] [id number] [address] [place] [phone] Apr, [facility] [address] [id number] [address] [place] [address] March, [facility] [address] [id number] [address] [place] [address] March, Bipolar disorder, currently in remission, most recent episode unspecified F31.70 ; Moderate intellectual disability F71 and Attention-deficit hyperactivity disorder, predominantly inattentive type F90.0 [facility] [address] [id number] [address] [place] [phone] Feb, [facility] [address] [id number] [place] [id number] Feb, Dental examination Z01.20 [facility] [address] [id number] [address] [place] [address] Jan, [facility] [address] [id number] [address] [place] [phone] Jan, [facility] [address] [id number] [address] [place] [address] Dec, [facility] [address] [id number] [address] [place] [address] Nov, [facility] [address] [id number] [place] [address] [id number] Nov, Encounter for dental exam an d cleaning w/o abnormal findings Z01.20 [facility] [address] [id number] [address] [place] [id number] Nov, Dental examination Z01.20 [facility] [address] [id number] [address] [place] [phone] Oct, 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 [address] [id number] [address] [place] [address] Sep, [facility] [address] [id number] [address] [place] [phone] Sep, [facility] [address] [id number] [address] [place] [phone] Aug, [facility] [address] [id number] [address] [place] [phone] Aug, Attention-deficit hyperactiv ity disorder, predominantly inattentive type F90.0 ; Moderate intellectual disability F71 and Bipolar disorder F31.9 [facility] [address] [id number] [address] [place] [address] [id number] Jul, Dental examination Z01.20 an d Dental caries K02.9 [facility] [address] [id number] [address] [place] [phone] Jul, [facility] [address] [id number] [address] [place] [phone] Jun, Bipolar disorder F31.9 ; Att ention-deficit hyperactivity disorder, predominantly inattentive type F90.0 and Moderate intellectual disability F71 [facility] [address] [id number] [address] [place] [phone] Jun, [facility] [address] [id number] [address] [place] [address] May, [facility] [address] [id number] [address] [place] [phone] Apr, [facility] [address] [id number] [address] [place] [address] March, Intermittent explosive disor jocelyn F63.81 ; Attention deficit hyperactivity disorder F90.[address]9 [facility] [address] [facility] [id number] [address] [place] [phone] Feb, [facility] [address] [facility] [id number] [address] [place] [phone] Jan, [facility] [address] [facility] [id number] [address] [place] [address] Dec, Encounter for immunization Z 23 [facility] [address] [facility] [id number] [address] [place] [phone] 13 Dec, 2016 Intermittent explosive disor jocelyn F63.81 ; Attention deficit hyperactivity disorder F90.9 and Bipolar disorder, currently in remission, most recent episode unspecified F31.70 [facility] [address] [facility] [id number] [address] [place] [phone] Nov, [facility] [address] [facility] [id number] [address] [place] [address] Oct, [facility] [address] [facility] [id number] [address] [place] [address] Oct, [facility] [address] [id number] [address] [place] [id number] Oct, Dental examination Z01.20 [facility] [address] [facility] [id number] [address] [place] [phone] Sep, [facility] [address] [facility] [id number] [address] [place] [phone] Sep, [facility] [address] [facility] [id number] [address] [place] [address] Sep, Intermittent explosive disor jocelyn F63.81 ; Bipolar disorder F31.9 and Attention deficit hyperactivity disorder F90.9 [facility] [address] [facility] [id number] [address] [place] [phone] Aug, [facility] [address] [id number] [address] [place] [phone] Aug, [facility] [address] [id number] [address] [place] [phone] Aug, [facility] [address] [id number] [address] [place] [address] Aug, Attention deficit hyperactiv ity disorder F90.9 [facility] [address] [id number] [address] [place] [address] Jul, [facility] [address] [id number] [address] [place] [address] Jun, [facility] [address] [id number] [address] [place] [phone] May, [facility] [address] [id number] [address] [place] [phone] Apr, [facility] [address] [id number] [address] [place] [address] Apr, Bipolar disorder F31.9 ; Att ention deficit hyperactivity disorder F90.9 and Intermittent explosive disorder F63.81 [facility] [address] [id number] [address] [place] [address] March, [facility] [address] [id number] [address] [place] [phone] Feb, [facility] [address] [id number] [address] [place] [phone] Feb, [facility] [address] [id number] [address] [place] [phone] Jan, [facility] [address] [id number] [address] [place] [phone] Jan, [facility] [address] [facility] [id number] [address] [place] [phone] Dec, [facility] [address] [id number] [address] [place] [phone] Nov, [facility] [address] [facility] [id number] [address] [place] [address] Nov, [facility] [address] [facility] [id number] [address] [place] [address] Nov, Attention deficit hyperactiv ity disorder F90.9 ; Intermittent explosive disorder F63.81 [address]9 [facility] [address] [facility] [id number] [address] [place] [address] Oct, [facility] [address] [facility] [id number] [address] [place] [phone] Oct, [facility] [address] [place] [id number] [address] [place] [phone] Sep, [facility] [address] [place] [id number] [address] [place] [phone] Aug, [facility] [address] [place] [id number] [address] [place] [address] Jul, [facility] [address] [facility] [id number] [address] [place] [address] Jul, [facility] [address] [place] [id number] [address] [place] [address] Jul, Anxiety, generalized 300.02 ; Bipolar disorder, unspecified 296.80 ; 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.00 ; 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 and Impulse control disorder, unspecified 312.30 [facility] [address] [facility] [id number] [address] [place] [address] Jul, [facility] [address] [facility] [id number] [address] [place] [address] Jun, [facility] [address] [facility] [id number] [address] [place] [phone] May, [facility] [address] [place] [id number] [address] [place] [phone] Apr, [facility] [address] [id number] [address] [place] [address] Apr, Bipolar disorder, unspecifie d 296.80 ; Generalized anxiety disorder 300.02 and 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.00 [facility] [address] [id number] [address] [place] [address] Apr, [facility] [address] [id number] [address] [place] [phone] March, [facility] [address] [id number] [address] [place] [address] March, [facility] [address] [id number] [address] [place] [phone] March, [facility] [address] [id number] [address] [place] [address] March, [facility] [address] [id number] [address] [place] [phone] Feb, [facility] [address] [id number] [address] [place] [address] Feb, [facility] [address] [id number] [address] [place] [phone] Jan, [facility] [address] [id number] [address] [place] [phone] Jan, [facility] [address] [id number] [address] [place] [phone] Jan, [facility] [address] [id number] [address] [place] [phone] Jan, [facility] [address] [id number] [address] [place] [phone] Jan, [facility] [address] [id number] [address] [place] [phone] Dec, [facility] [address] [id number] [address] [place] [address], [place] [address] Dec, [facility] [address] [id number] [address] [place] [address], [place] [address] Nov, [facility] [address] [id number] [address] [place] [address], [place] [address] Nov, [facility] [address] [id number] [address] [place] [address], [place] [address] Nov, [facility] [address] [id number] [address] [place] [address], [place] [address] Oct, [facility] [address] [id number] [address] [place] [address], [place] [address] Oct, [facility] [address] [id number] [address] [place] [address], [place] [address] Oct, [facility] [address] [id number] [address] [place] [address], [place] [address] Oct, [facility] [address] [id number] [address] [place] [address], [place] [address] Oct, [facility] [address] [id number] [address] [place] [address], [place] [address] Oct, [facility] [address] [id number] [address] [place] [address], [place] [address] Sep, [facility] [address] [id number] [address] [place] [address], [place] [address] Sep, [facility] [address] [id number] [address] [place] [address], [place] [address] Sep, [facility] [address] [id number] [address] [place] [address], [place] [address] Aug, [facility] [address] [id number] [address] [place] [address], [place] [address] Aug, [facility] [address] [id number] [address] [place] [address], [place] [address] Jul, [facility] [address] [id number] [address] [place] [address], [place] [address] Jul, [facility] [address] [id number] [address] [place] [address], [place] [address] Jun, [facility] [address] [id number] [address] [place] [address], [place] [address] Jun, [facility] [address] [id number] [address] [place] [address], [place] [address] Jun, [facility] [address] [id number] [address] [place] [address], [place] [address] Jun, [facility] [address] [id number] [address] [place] [address], [place] [address] May, [facility] [address] [id number] [address] [place] [address], [place] [address] May, [facility] [address] [id number] [address] [place] [address], [place] [address] May, [facility] [address] [id number] [address] [place] [address], [place] [address] Apr, [facility] [address] [id number] [address] [place] [address], [place] [address] Apr, [facility] [address] [id number] [address] [place] [address], [place] [address] Apr, [facility] [address] [id number] [address] [place] [address], [place] [address] Apr, [facility] [address] [id number] [address] [place] [address], [place] [address] March, [facility] [address] [id number] [address] [place] [address], [place] [address] March, [facility] [address] [id number] [address] [place] [address], [place] [address] March, [facility] [address] [id number] [address] [place] [address], [place] [address] March, [facility] [address] [id number] [facility] [place] [address] Feb, [facility] [address] [id number] [address] [place] [address], [place] [address] Feb, [facility] [address] [id number] [address] [place] [address], [place] [address] Jan, [facility] [address] [id number] [address] [place] [address], [place] [address] Jan, [facility] [address] [id number] [address] [place] [address], [place] [address] Jan, [facility] [address] [id number] [address] [place] [address], [place] [address] Jan, [facility] [address] [id number] [address] [place] [address], [place] [address] Jan, [facility] [address] [id number] [address] [place] [address], [place] [address] Jan, [facility] [address] [id number] [address] [place] [address], [place] [address] Jan, [facility] [address] [id number] [address] [place] [address], [place] [address] Jan, [facility] [address] [id number] [address] [place] [address], [place] [address] Dec, [facility] [address] [id number] [address] [place] [address], [place] [address] Dec, [facility] [address] [id number] [address] [place] [address], [place] [address] Dec, [facility] [address] [id number] [address] [place] [address], [place] [address] Dec, [facility] [address] [id number] [address] [place] [address], [place] [address] Nov, [facility] [address] [id number] [address] [place] [address], [place] [address] Nov, [facility] [address] [id number] [address] [place] [address], [place] [address] Oct, [facility] [address] [id number] [address] [place] [address], [place] [address] Oct, [facility] [address] [id number] [address] [place] [address], [place] [address] Oct, [facility] [address] [id number] [address] [place] [address], [place] [address] Oct, [facility] [address] [id number] [address] [place] [address], [place] [address] Sep, [facility] [address] [id number] [address] [place] [address], [place] [address] Sep, [facility] [address] [id number] [address] [place] [address], [place] [address] Sep, [facility] [address] [id number] [address] [place] [address], [place] [address] Sep, [facility] [address] [id number] [address] [place] [address], [place] [address] Aug, [facility] [address] [id number] [address] [place] [address], [place] [address] Aug, [facility] [address] [id number] [address] [place] [address], [place] [address] Aug, [facility] [address] [id number] [address] [place] [address], [place] [address] Jul, [facility] [address] [id number] [address] [place] [address], [place] [address] Jul, [facility] [address] [id number] [address] [place] [address], [place] [address] Jun, [facility] [address] [id number] [address] [place] [address], [place] [address] Jun, [facility] [address] [id number] [address] [place] [address], [place] [address] May, [facility] [address] [id number] [address] [place] [address], [place] [address] May, [facility] [address] [id number] [address] [place] [address], [place] [address] Apr, [facility] [address] [id number] [address] [place] [address], [place] [address] March, [facility] [address] [id number] [address] [place] [address], [place] [address] March, [facility] [address] [id number] [address] [place] [address], [place] [address] Feb, [facility] [address] [id number] [address] [place] [address], [place] [address] Jan, [facility] [address] [id number] [address] [place] [address], [place] [address] Jan, [facility] [address] [id number] [address] [place] [address], [place] [address] Dec, [facility] [address] [id number] [address] [place] [address], [place] [address] Dec, [facility] [place] [address] [id number] [address] [place] [address], [place] [address] Nov, [facility] [address] [id number] [address] [place] [address], [place] [address] Nov, [facility] [address] [id number] [address] [place] [address], [place] [address] Nov, [facility] [address] [id number] [address] [place] [address], [place] [address] Nov, [facility] [address] [id number] [address] [place] [address], [place] [address] Nov, [facility] [address] [id number] [address] [place] [address], [place] [id number] 31 Oct, 2012 [facility] [address] [id number] [address] [place] [address], [place] [address] 31 Oct, 2012 [facility] [address] [id number] [address] [place] [address], [place] [id number] Oct, [facility] [address] [id number] [address] [place] [address], [place] [address] Oct, [facility] [address] [id number] [address] [place] [address], [place] [address] Oct, [facility] [address] [id number] [address] [place] [address], [place] [address] Oct, [facility] [address] [id number] [address] [place] [address], [place] [address] Oct, [facility] [address] [id number] [address] [place] [address], [place] [address] Oct, [facility] [address] [id number] [address] [place] [address], [place] [address] Sep, [facility] [address] [id number] [address] [place] [address], [place] [id number] Sep, [facility] [place] [address] [id number] [address] [place] [address], [place] [id number] Sep, [facility] [address] [id number] [address] [place] [address], [place] [address] Aug, [facility] [address] [id number] [address] [place] [address], [place] [id number] 17 Aug, 2012 [facility] [address] [id number] [address] [place] [address], [place] [id number] 10 Aug, 2012 [facility] [address] [id number] [address] [place] [address], [place] [id number] 09 Aug, 2012 [facility] [address] [id number] [address] [place] [address], [place] [id number] 08 Aug, 2012 [facility] [address] [id number] [address] [place] [address], [place] [id number] Jul, [facility] [address] [id number] [address] [place] [address], [place] [id number] Jul, [facility] [address] [id number] [address] [place] [address], [place] [id number] Jun, [facility] [address] [id number] [address] [place] [address], [place] [address] May, [facility] [address] [id number] [address] [place] [address], [place] [address] May, [facility] [address] [id number] [address] [place] [address], [place] [id number] Apr, [facility] [address] [id number] [address] [place] [address], [place] [id number] March, [facility] [address] [id number] [address] [place] [address], [place] [id number] March, [facility] [address] [id number] [address] [place] [address], [place] [id number] March, [facility] [address] [id number] [address] [place] [address], [place] [id number] March, [facility] [address] [id number] [address] [place] [address], [place] [id number] Feb, [facility] [address] [id number] [address] [place] [address], [place] [id number] 05 Feb, 2012 [facility] [address] [id number] [address] [place] [address], [place] [id number] Jan, [facility] [address] [id number] [address] [place] [address], [place] [address] Dec, [facility] [address] [id number] [address] [place] [address], [place] [id number] 08 Dec, 2011 [facility] [address] [id number] [address] [place] [id number] Dec, [facility] [address] [id number] [address] [place] [id number] Nov, [facility] [address] [id number] [address] [place] [id number] Nov, [facility] [address] [id number] [address] [place] [id number] Nov, [facility] [address] [id number] [address] [place] [id number] Oct, [facility] [address] [id number] [address] [place] [id number] Sep, [facility] [address] [id number] [address] [place] [id number] Aug, [facility] [address] [id number] [address] [place] [id number] Aug, [facility] [address] [id number] [address] [place] [phone] May, [facility] [address] [id number] [address] [place] [id number] Sep, [facility] [address] [id number] [address] [place] [id number] Sep, IMMUNIZATIONS No Known Immunizations SOCIAL HISTORY Never Assessed REASON FOR VISIT vyvanse 02/23/2018 PLAN OF CARE VITAL SIGNS MEDICATIONS Medication Instructions Dosage Frequency Start Date End Date Duration S rené Vyvanse 70 MG Orally Once a day 1 capsule in the morning 24h Jan, 28 days Active RESULTS No Results PROCEDURES No Known procedures INSTRUCTIONS MEDICATIONS ADMINISTERED No Known Medications MEDICAL (GENERAL) HISTORY Type Description Date Medical History bipolar Medical History adhd Medical History anxiety
--- OUTSIDE RECORDS SUMMARY | 2020-03-18 15:35 | XMS REPORT ---
Author Author Jose Cruz [facility]ELDMAN [facility] Address [address] [place] [address] Care Team Providers Care Inbound Call Center Representative Name Role Phone FRANCIA CARLOS Unavailable PROBLEMS Type Condition ICD9-CM Code [id number] Code Onset Dates Condition S tatus SNOMED Code Problem Bipolar disorder, unspecified 296.80 Active 87174282 Problem Bipolar disorder F31.9 Active 137 75272 Problem Bipolar I disorder, most recent episode (or current) mixed, moderate 296.62 Active 466987968 Problem Encounter for long-term (current) use of other medications V58.69 Active 286575598 Problem 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 Ac tive 78043657 Problem 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 314.00 Active 29938939 Problem Generalized anxiety disorder 300.02 A ctive 07145972 Problem Attention-deficit hyperactiv ity disorder, predominantly inattentive type F90.0 Active 71634737 Problem Intellectual disability F79 Active 13250610 Problem Attention deficit hyperactivity disorder F90.9 Active 395573745 Problem Intermittent explosive disorder F63.81 Active 96575055 Problem Moderate intellectual disability F71 Active 60597145 Problem Bipolar disorder, currently in remission, most recent episode unspecified F31.70 Active 15532584 ALLERGIES No Information ENCOUNTERS Encounter Location Date Diagnosis [facility] [address] [facility] [id number] [address] [place] [phone] May, Bipolar disorder, currently in remission, most recent episode unspecified F31.70 ; Moderate intellectual disability F71 and Attention-deficit hyperactivity disorder, predominantly inattentive type F90.0 [facility] [address] [facility] [id number] [address] [place] [phone] Apr, Bipolar disorder, unspecifie d F31.9 [facility] [address] [facility] [id number] [address] [place] [phone] Apr, [place] [id number] [id number] [address] [place] [phone] Apr, [facility] [address] [id number] [address] [place] [phone] Apr, [facility] [address] [id number] [address] [place] [phone] March, [facility] [address] [id number] [address] [place] [phone] March, Bipolar disorder, currently in remission, most recent episode unspecified F31.70 ; Moderate intellectual disability 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 and Attention-deficit hyperactivity disorder, predominantly inattentive type F90.0 [facility] [address] [id number] [address] [place] [phone] Feb, [facility] [address] [id number] [address] [place] [id number] Feb, Dental examination Z01.20 [facility] [address] [id number] [address] [place] [phone] Jan, [facility] [address] [id number] [address] [place] [phone] Jan, [facility] [address] [id number] [address] [place] [phone] Dec, [facility] [address] [id number] [address] [place] [phone] Nov, [facility] [address] [id number] [address] [place] [phone] Nov, Encounter for dental exam an d cleaning w/o abnormal findings Z01.20 [facility] [address] [id number] [address] [place] [id number] Nov, Dental examination Z01.20 [facility] [address] [id number] [address] [place] [phone] Oct, [facility] [address] [id number] [address] [place] [phone] Oct, Bipolar disorder, currently in remission, most recent episode unspecified F31.70 ; Moderate intellectual disability F71 and Attention-deficit hyperactivity disorder, predominantly inattentive type F90.0 [facility] [address] [id number] [address] [place] [phone] Sep, [facility] [address] [id number] [address] [place] [phone] Sep, [facility] [address] [id number] [address] [place] [phone] Aug, [facility] [address] [id number] [address] [place] [phone] Aug, Attention-deficit hyperactiv ity disorder, predominantly inattentive type F90.0 ; Moderate intellectual disability 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 and Bipolar disorder F31.9 [facility] [address] [id number] [address] [place] [address] [id number] Jul, Dental examination Z01.20 an d Dental caries K02.9 [facility] [address] [id number] [address] [place] [phone] Jul, [facility] [address] [id number] [address] [place] [phone] Jun, Bipolar disorder F31.9 ; Att ention-deficit hyperactivity disorder, predominantly inattentive type F90.0 and Moderate intellectual disability 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 [facility] [address] [id number] [address] [place] [phone] Jun, [facility] [address] [id number] [address] [place] [phone] May, [facility] [address] [id number] [address] [place] [id number] Apr, [facility] [address] [id number] [address] [place] [phone] March, Intermittent explosive disor jocelyn F63.81 ; Attention deficit hyperactivity disorder F90.9 and Bipolar disorder F31.9 [facility] [address] [id number] [address] [place] [phone] Feb, [facility] [address] [id number] [address] [place] [phone] Jan, [facility] [address] [facility] [id number] [address] [place] [phone] 13 Dec, 2016 Encounter for immunization Z 23 [facility] [address] [id number] [address] [place] [phone] 13 Dec, 2016 Intermittent explosive disor jocelyn F63.81 ; Attention deficit hyperactivity disorder F90.9 and Bipolar disorder, currently in remission, most recent episode unspecified F31.70 [facility] [address] [id number] [address] [place] [phone] Nov, [facility] [address] [facility] [id number] [address] [place] [phone] Oct, [facility] [address] [id number] [address] [place] [phone] Oct, [facility] [address] [id number] [address] [place] [address] [id number] Oct, Dental examination Z01.20 [facility] [address] [facility] [id number] [address] [place] [phone] Sep, [facility] [address] [id number] [address] [place] [phone] Sep, [facility] [address] [facility] [id number] [address] [place] [phone] Sep, Intermittent explosive disor jocelyn F63.81 ; Bipolar disorder F31.9 and Attention deficit hyperactivity disorder F90.9 [facility] [address] [id number] [address] [place] [phone] Aug, [facility] [address] [facility] [id number] [address] [place] [phone] Aug, [facility] [address] [id number] [address] [place] [phone] Aug, [facility] [address] [id number] [address] [place] [phone] Aug, Attention deficit hyperactiv ity disorder F90.9 [facility] [address] [id number] [address] [place] [phone] 16 Jul, 2016 [facility] [address] [id number] [address] [place] [phone] Jun, [facility] [address] [id number] [address] [place] [phone] May, [facility] [address] [id number] [address] [place] [phone] Apr, [facility] [address] [facility] [id number] [address] [place] [phone] Apr, Bipolar disorder F31.9 ; Att ention deficit hyperactivity disorder F90.9 and Intermittent explosive disorder F63.81 [facility] [address] [id number] [address] [place] [phone] March, [facility] [address] [id number] [address] [place] [phone] Feb, [facility] [address] [facility] [id number] [address] [place] [phone] Feb, [facility] [address] [id number] [address] [place] [id number] Jan, [facility] [address] [id number] [address] [place] [phone] Jan, [facility] [address] [facility] [id number] [address] [place] [phone] Dec, [facility] [address] [id number] [address] [place] [phone] Nov, [facility] [address] [id number] [address] [place] [phone] Nov, [facility] [address] [facility] [id number] [address] [place] [phone] Nov, Attention deficit hyperactiv ity disorder F90.9 ; Intermittent explosive disorder F63.81 and Bipolar disorder F31.9 [facility] [address] [facility] [id number] [address] [place] [phone] Oct, [facility] [address] [facility] [id number] [address] [place] [phone] Oct, [facility] [address] [facility] [id number] [address] [place] [phone] Sep, [facility] [address] [facility] [id number] [address] [place] [phone] Aug, [facility] [address] [facility] [id number] [address] [place] [phone] Jul, [facility] [address] [facility] [id number] [address] [place] [phone] Jul, [facility] [address] [facility] [id number] [address] [place] [id number] Jul, Anxiety, generalized 300.02 ; Bipolar disorder, unspecified 296.80 ; 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.00 ; 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 and Impulse control disorder, unspecified 312.30 [facility] [address] [facility] [id number] [address] [place] [phone] Jul, [facility] [address] [facility] [id number] [address] [place] [phone] Jun, [facility] [address] [facility] [id number] [address] [place] [phone] May, [facility] [address] [facility] [id number] [address] [place] [phone] Apr, [facility] [address] [facility] [id number] [address] [place] [phone] Apr, Bipolar disorder, unspecifie d 296.80 ; Generalized anxiety disorder 300.02 and 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.00 [facility] [address] [id number] [address] [place] [phone] Apr, [facility] [address] [id number] [address] [place] [phone] March, [facility] [address] [id number] [address] [place] [phone] March, [facility] [address] [id number] [address] [place] [phone] March, [facility] [address] [id number] [address] [place] [phone] March, [facility] [address] [id number] [address] [place] [phone] Feb, [facility] [address] [id number] [address] [place] [phone] Feb, [facility] [address] [id number] [address] [place] [phone] Jan, [facility] [address] [id number] [address] [place] [phone] Jan, [facility] [address] [id number] [address] [place] [phone] Jan, [facility] [address] [id number] [address] [place] [phone] Jan, [facility] [address] [id number] [address] [place] [phone] Jan, [facility] [address] [id number] [address] [place] [phone] Dec, [facility] [address] [id number] [address] [place] [phone] Dec, [facility] [address] [id number] [address] [place] [phone] Nov, [facility] [address] [id number] [address] [place] [address], [place] [address] Nov, [facility] [address] [id number] [address] [place] [address], [place] [address] Nov, [facility] [address] [id number] [address] [place] [address], [place] [address] Oct, [facility] [address] [id number] [address] [place] [address], [place] [address] Oct, [facility] [address] [id number] [address] [place] [address], [place] [address] Oct, [facility] [address] [id number] [address] [place] [address], [place] [address] Oct, [facility] [address] [id number] [address] [place] [address], [place] [address] Oct, [facility] [address] [id number] [address] [place] [address], [place] [address] Oct, [facility] [address] [id number] [address] [place] [address], [place] [address] Sep, [facility] [address] [id number] [address] [place] [address], [place] [address] Sep, [facility] [address] [id number] [address] [place] [address], [place] [address] Sep, [facility] [address] [id number] [address] [place] [phone] Aug, [facility] [address] [id number] [address] [place] [address], [place] [address] Aug, [facility] [address] [id number] [address] [place] [address], [place] [address] Jul, [facility] [address] [id number] [address] [place] [phone] Jul, [facility] [address] [id number] [address] [place] [phone] Jun, [facility] [address] [id number] [facility] [place] [address] Jun, [facility] [address] [id number] [address] [place] [address], [place] [address] Jun, [facility] [address] [id number] [address] [place] [address], [place] [address] Jun, [facility] [address] [id number] [address] [place] [address], [place] [address] May, [facility] [address] [id number] [address] [place] [address], [place] [address] May, [facility] [address] [id number] [address] [place] [address], [place] [address] May, [facility] [address] [id number] [address] [place] [address], [place] [address] Apr, [facility] [address] [id number] [address] [place] [address], [place] [address] Apr, [facility] [address] [id number] [address] [place] [address], [place] [address] Apr, [facility] [address] [id number] [address] [place] [address], [place] [address] Apr, [facility] [address] [id number] [address] [place] [address], [place] [address] March, [facility] [address] [id number] [address] [place] [address], [place] [address] March, [facility] [address] [id number] [address] [place] [address], [place] [address] March, [facility] [address] [id number] [address] [place] [address], [place] [address] March, [facility] [address] [id number] [address] [place] [address], [place] [address] Feb, [facility] [address] [id number] [facility] [place] [address] Feb, [facility] [address] [id number] [facility] [place] [address] Jan, [facility] [address] [id number] [facility] [place] [address] Jan, [facility] [address] [id number] [facility] [place] [address] Jan, [facility] [address] [id number] [address] [place] [address], [place] [address] Jan, [facility] [address] [id number] [address] [place] [address], [place] [address] Jan, [facility] [address] [id number] [address] [place] [address], [place] [address] Jan, [facility] [address] [id number] [address] [place] [address], [place] [address] Jan, [facility] [address] [id number] [address] [place] [address], [place] [address] Jan, [facility] [address] [id number] [address] [place] [address], [place] [address] Dec, [facility] [address] [id number] [address] [place] [address], [place] [address] Dec, [facility] [address] [id number] [address] [place] [address], [place] [address] Dec, [facility] [address] [id number] [address] [place] [address], [place] [address] Dec, [facility] [address] [id number] [address] [place] [address], [place] [address] Nov, [facility] [address] [id number] [address] [place] [address], [place] [address] Nov, [facility] [address] [id number] [address] [place] [address], [place] [address] Oct, [facility] [address] [id number] [address] [place] [address], [place] [address] Oct, [facility] [address] [id number] [address] [place] [address], [place] [address] Oct, [facility] [address] [id number] [address] [place] [address], [place] [address] Oct, [facility] [address] [id number] [address] [place] [address], [place] [address] Sep, [facility] [address] [id number] [address] [place] [address], [place] [address] Sep, [facility] [address] [id number] [address] [place] [address], [place] [address] Sep, [facility] [address] [id number] [address] [place] [address], [place] [address] Sep, [facility] [address] [id number] [address] [place] [address], [place] [address] Aug, [facility] [address] [id number] [address] [place] [address], [place] [address] Aug, [facility] [address] [id number] [address] [place] [address], [place] [address] Aug, [facility] [address] [id number] [address] [place] [address], [place] [address] Jul, [facility] [address] [id number] [address] [place] [address], [place] [address] Jul, [facility] [address] [id number] [address] [place] [address], [place] [address] Jun, [facility] [address] [id number] [address] [place] [address], [place] [address] Jun, [facility] [address] [id number] [address] [place] [id number], [place] [address] May, [facility] [address] [id number] [address] [place] [id number], [place] [address] 10 May, 2013 [facility] [address] [id number] [address] [place] [id number], [place] [address] Apr, [facility] [address] [id number] [address] [place] [id number], [place] [address] March, [facility] [address] [id number] [address] [place] [id number], [place] [address] March, [facility] [address] [id number] [address] [place] [id number], [place] [address] Feb, [facility] [address] [id number] [address] [place] [id number], [place] [address] Jan, [facility] [address] [id number] [address] [place] [id number], [place] [address] Jan, [facility] [address] [id number] [address] [place] [id number], [place] [address] Dec, [facility] [address] [id number] [address] [place] [id number], [place] [address] Dec, [facility] [address] [id number] [address] [place] [id number], [place] [address] Nov, [facility] [address] [id number] [address] [place] [id number], [place] [address] Nov, [facility] [address] [id number] [address] [place] [id number], [place] [address] Nov, [facility] [address] [id number] [address] [place] [address], [place] [address] Nov, [facility] [address] [id number] [address] [place] [id number], [place] [address] Nov, [facility] [address] [id number] [address] [place] [address], [place] [address] Oct, [facility] [address] [id number] [address] [place] [id number], [place] [address] Oct, [facility] [address] [id number] [address] [place] [id number], [place] [address] Oct, [facility] [address] [id number] [address] [place] [address], [place] [address] Oct, [facility] [address] [id number] [address] [place] [address], [place] [address] Oct, [facility] [address] [id number] [address] [place] [address], [place] [address] Oct, [facility] [address] [id number] [address] [place] [address], [place] [address] Oct, [facility] [address] [id number] [address] [place] [address], [place] [address] Oct, [facility] [address] [id number] [address] [place] [address], [place] [address] Sep, [facility] [address] [id number] [address] [place] [id number], [place] [address] Sep, [facility] [address] [id number] [address] [place] [address], [place] [address] Sep, [facility] [address] [id number] [address] [place] [address], [place] [address] Aug, [facility] [address] [id number] [address] [place] [address], [place] [address] Aug, [facility] [address] [id number] [address] [place] [id number] Aug, [facility] [address] [id number] [address] [place] [address], [place] [address] Aug, [facility] [address] [id number] [address] [place] [address], [place] [address] 08 Aug, 2012 [facility] [address] [id number] [address] [place] [address], [place] [address] Jul, [facility] [address] [id number] [address] [place] [address], [place] [address] Jul, [facility] [address] [id number] [address] [place] [address], [place] [address] Jun, [facility] [address] [id number] [address] [place] [id number], [place] [address] May, [facility] [address] [id number] [address] [place] [id number], [place] [address] May, [facility] [address] [id number] [address] [place] [id number], [place] [address] Apr, [facility] [address] [id number] [address] [place] [id number], [place] [address] March, [facility] [address] [id number] [address] [place] [id number], [place] [address] March, [facility] [address] [id number] [address] [place] [id number], [place] [address] March, [facility] [address] [id number] [address] [place] [id number], [place] [address] March, [facility] [address] [id number] [address] [place] [id number], [place] [address] Feb, [facility] [address] [id number] [address] [place] [id number], [place] [address] Feb, [facility] [address] [id number] [address] [place] [id number], [place] [address] Jan, [facility] [address] [id number] [address] [place] [id number], [place] [address] Dec, [facility] [address] [id number] [address] [place] [id number], [place] [address] Dec, [facility] [address] [id number] [address] [place] [id number], [place] [address] Dec, [facility] [address] [id number] [address] [place] [id number], [place] [address] Nov, [facility] [address] [id number] [address] [place] [id number] Nov, [facility] [address] [id number] [address] [place] [id number] Nov, [facility] [address] [id number] [address] [place] [id number] Oct, [facility] [address] [id number] [address] [place] [id number] Sep, [facility] [address] [id number] [address] [place] [id number] Aug, [facility] [address] [id number] [address] [place] [id number] Aug, [facility] [address] [id number] [address] [place] [id number] May, [facility] [address] [id number] [address] [place] [phone] Sep, [facility] [address] [id number] [address] [place] [phone] Sep, IMMUNIZATIONS No Known Immunizations SOCIAL HISTORY Never Assessed REASON FOR VISIT vyvanse 01/16/2018 PLAN OF CARE VITAL SIGNS MEDICATIONS Medication Instructions Dosage Frequency Start Date End Date Duration S tatus Vyvanse 70 MG Orally Once a day 1 capsule in the morning 24h Dec, 28 days Active RESULTS No Results PROCEDURES No Known procedures INSTRUCTIONS MEDICATIONS ADMINISTERED No Known Medications MEDICAL (GENERAL) HISTORY Type Description Date Medical History bipolar Medical History adhd Medical History anxiety
--- OUTSIDE RECORDS SUMMARY | 2020-03-18 15:36 | XMS REPORT ---
Author Author Jose Cruz [facility] Address [address] [place] [address] Care Team Providers Care Cell Lead Name Role Phone FRANCIA CARLOS Unavailable PROBLEMS Type Condition ICD9-CM Code FOR49-OC Code Onset Dates Condition S tatus SNOMED Code Problem Bipolar disorder, unspecified 296.80 Active 97662274 Problem Bipolar disorder F31.9 Active 137 11891 Problem Bipolar I disorder, most recent episode (or current) mixed, moderate 296.62 Active 319852353 Problem Encounter for long-term (current) use of other medications V58.69 Active 646462192 Problem 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 Ac tive 08668772 Problem 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 314.00 Active 59210411 Problem Generalized anxiety disorder 300.02 A ctive 31149845 Problem Attention-deficit hyperactiv ity disorder, predominantly inattentive type F90.0 Active 73433004 Problem Intellectual disability F79 Active 68159980 Problem Attention deficit hyperactivity disorder F90.9 Active 773772635 Problem Intermittent explosive disorder F63.81 Active 71228688 Problem Moderate intellectual disability F71 Active 83651858 Problem Bipolar disorder, currently in remission, most recent episode unspecified F31.70 Active 40440382 ALLERGIES No Known Allergies ENCOUNTERS Encounter Location Date Diagnosis [facility] [address] [facility] [id number] [address] [place] [address] March, [facility] [address] [facility] [id number] [address] [place] [address] Feb, [facility] [address] [facility] [id number] [address] [place] [address] Jan, [facility] [address] [facility] [id number] [address] [place] [address] Jan, [facility] [address] [facility] [id number] [address] [place] [address] Dec, [facility] [address] [id number] [address] [place] [address] Nov, [facility] [address] [id number] [address] [place] [id number] Nov, Encounter for dental exam an d cleaning w/o abnormal findings Z01.20 [facility] [address] [id number] [address] [place] [address] [id number] Nov, Dental examination Z01.20 [facility] [address] [id number] [address] [place] [address] Oct, [facility] [address] [id number] [address] [place] [address] Oct, Bipolar disorder, currently in remission, most recent episode unspecified F31.70 ; Moderate intellectual disability F71 and Attention-deficit hyperactivity disorder, predominantly inattentive type F90.0 [facility] [address] [id number] [address] [place] [address] Sep, [facility] [address] [id number] [address] [place] [address] Sep, [facility] [address] [id number] [address] [place] [address] Aug, [facility] [address] [id number] [address] [place] [address] Aug, Attention-deficit hyperactiv ity disorder, predominantly inattentive type F90.0 ; Moderate intellectual disability F71 and Bipolar disorder F31.9 [facility] [address] [id number] [address] [place] [id number] Jul, Dental examination Z01.20 an d Dental caries K02.9 [facility] [address] [id number] [address] [place] [address] Jul, [facility] [address] [id number] [address] [place] [address] Jun, Bipolar disorder F31.9 ; Att ention-deficit hyperactivity disorder, predominantly inattentive type F90.0 and Moderate intellectual disability F71 [facility] [address] [facility] [id number] [address] [place] [address] Jun, [facility] [address] [facility] [id number] [address] [place] [address] May, [facility] [address] [facility] [id number] [address] [place] [address] Apr, [facility] [address] [facility] [id number] [address] [place] [address] March, Intermittent explosive disor jocelyn F63.81 ; Attention deficit hyperactivity disorder F90.9 and Bipolar disorder F31.9 [facility] [address] [facility] [id number] [address] [place] [address] Feb, [facility] [address] [facility] [id number] [address] [place] [address] Jan, [facility] [address] [facility] [id number] [address] [place] [address] 13 Dec, 2016 Encounter for immunization Z 23 [facility] [address] [facility] [id number] [address] [place] [address] 13 Dec, 2016 Intermittent explosive disor jocelyn F63.81 ; Attention deficit hyperactivity disorder F90.9 and Bipolar disorder, currently in remission, most recent episode unspecified F31.70 [facility] [address] [facility] [id number] [address] [place] [address] Nov, [facility] [address] [facility] [id number] [address] [place] [address] Oct, [facility] [address] [facility] [id number] [address] [place] [address] Oct, [facility] [address] [id number] [address] [place] [address] [id number] Oct, Dental examination Z01.20 [facility] [address] [id number] [address] [place] [address] Sep, [facility] [address] [id number] [address] [place] [address] Sep, [facility] [address] [facility] [id number] [address] [place] [address] Sep, Intermittent explosive disor jocelyn F63.81 ; Bipolar disorder F31.9 and Attention deficit hyperactivity disorder F90.9 [facility] [address] [id number] [address] [place] [address] Aug, [facility] [address] [id number] [address] [place] [address] Aug, [facility] [address] [id number] [address] [place] [address] Aug, [facility] [address] [id number] [address] [place] [address] Aug, Attention deficit hyperactiv ity disorder F90.9 [facility] [address] [id number] [address] [place] [address] Jul, [facility] [address] [id number] [address] [place] [address] Jun, [facility] [address] [id number] [address] [place] [address] May, [facility] [address] [id number] [address] [place] [address] Apr, [facility] [address] [id number] [address] [place] [address] Apr, Bipolar disorder F31.9 ; Att ention deficit hyperactivity disorder F90.9 and Intermittent explosive disorder F63.81 [facility] [address] [id number] [address] [place] [address] March, [facility] [address] [id number] [address] [place] [address] Feb, [facility] [address] [id number] [address] [place] [address] Feb, [facility] [address] [facility] [id number] [address] [place] [address] Jan, [facility] [address] [facility] [id number] [address] [place] [address] Jan, [facility] [address] [facility] [id number] [address] [place] [address] Dec, [facility] [address] [facility] [id number] [address] [place] [address] Nov, [facility] [address] [facility] [id number] [address] [place] [address] Nov, [facility] [address] [facility] [id number] [address] [place] [address] Nov, Attention deficit hyperactiv ity disorder F90.9 ; Intermittent explosive disorder F63.81 and Bipolar disorder F31.9 [facility] [address] [facility] [id number] [address] [place] [address] Oct, [facility] [address] [facility] [id number] [address] [place] [address] Oct, [facility] [address] [facility] [id number] [address] [place] [address] Sep, [facility] [address] [facility] [id number] [address] [place] [address] Aug, [facility] [address] [facility] [id number] [address] [place] [address] Jul, [facility] [address] [facility] [id number] [address] [place] [address] Jul, [facility] [address] [facility] [id number] [address] [place] [address] Jul, Anxiety, generalized 300.02 ; Bipolar disorder, unspecified 296.80 ; 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.00 ; 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 and Impulse control disorder, unspecified 312.30 [facility] [address] [id number] [address] [place] [address] Jul, [facility] [address] [facility] [id number] [address] [place] [address] Jun, [facility] [address] [id number] [address] [place] [address] May, [facility] [address] [id number] [address] [place] [address] Apr, [facility] [address] [id number] [address] [place] [address] Apr, Bipolar disorder, unspecifie d 296.80 ; Generalized anxiety disorder 300.02 and 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.00 [facility] [address] [facility] [id number] [address] [place] [address] Apr, [facility] [address] [id number] [address] [place] [address] March, [facility] [address] [facility] [id number] [address] [place] [address] March, [facility] [address] [facility] [id number] [address] [place] [address] March, [facility] [address] [facility] [id number] [address] [place] [address] March, [facility] [address] [id number] [address] [place] [address] Feb, [facility] [address] [id number] [address] [place] [address] Feb, [facility] [address] [facility] [id number] [address] [place] [address] Jan, [facility] [address] [facility] [id number] [address] [place] [address] Jan, [facility] [address] [id number] [address] [place] [address], [place] [address] Jan, [facility] [address] [id number] [address] [place] [address], [place] [address] Jan, [facility] [address] [id number] [address] [place] [address], [place] [address] Jan, [facility] [address] [id number] [address] [place] [address], [place] [address] Dec, [facility] [address] [id number] [address] [place] [address], [place] [address] Dec, [facility] [address] [id number] [address] [place] [address], [place] [address] Nov, [facility] [address] [id number] [address] [place] [address], [place] [address] Nov, [facility] [address] [id number] [address] [place] [address], [place] [address] Nov, [facility] [address] [id number] [address] [place] [address], [place] [address] Oct, [facility] [address] [id number] [address] [place] [address], [place] [address] Oct, [facility] [address] [id number] [address] [place] [address], [place] [address] Oct, [facility] [address] [id number] [address] [place] [address], [place] [address] Oct, [facility] [address] [id number] [address] [place] [address], [place] [address] Oct, [facility] [address] [id number] [address] [place] [address], [place] [address] Oct, [facility] [address] [id number] [address] [place] [address], [place] [address] Sep, [facility] [address] [id number] [address] [place] [address], [place] [address] Sep, [facility] [address] [id number] [address] [place] [address], [place] [address] Sep, [facility] [address] [id number] [address] [place] [address], [place] [address] Aug, [facility] [address] [id number] [address] [place] [address], [place] [address] Aug, [facility] [address] [id number] [address] [place] [address], [place] [address] Jul, [facility] [address] [id number] [address] [place] [address], [place] [address] Jul, [facility] [address] [id number] [address] [place] [address], [place] [address] Jun, [facility] [address] [id number] [address] [place] [address], [place] [address] Jun, [facility] [address] [id number] [address] [place] [address], [place] [address] Jun, [facility] [address] [id number] [address] [place] [address], [place] [address] Jun, [facility] [address] [id number] [address] [place] [address], [place] [address] May, [facility] [address] [id number] [address] [place] [address], [place] [address] May, [facility] [address] [id number] [address] [place] [address], [place] [address] May, [facility] [address] [id number] [address] [place] [address], [place] [address] Apr, [facility] [address] [id number] [address] [place] [address], [place] [address] Apr, [facility] [address] [id number] [address] [place] [address], [place] [address] Apr, [facility] [address] [id number] [facility] [place] [address] Apr, [facility] [address] [id number] [facility] [place] [address] March, [facility] [address] [id number] [facility] [place] [address] March, [facility] [address] [id number] [address] [place] [address], [place] [address] March, [facility] [address] [id number] [address] [place] [address], [place] [address] March, [facility] [address] [id number] [address] [place] [address], [place] [address] Feb, [facility] [address] [id number] [address] [place] [address], [place] [address] Feb, [facility] [address] [id number] [address] [place] [address], [place] [address] Jan, [facility] [address] [id number] [address] [place] [address], [place] [address] Jan, [facility] [address] [id number] [address] [place] [address], [place] [address] Jan, [facility] [address] [id number] [address] [place] [address], [place] [address] Jan, [facility] [address] [id number] [address] [place] [address], [place] [address] Jan, [facility] [address] [id number] [address] [place] [address], [place] [address] Jan, [facility] [address] [id number] [address] [place] [address], [place] [address] Jan, [facility] [address] [id number] [address] [place] [address], [place] [address] Jan, [facility] [address] [id number] [address] [place] [address], [place] [address] Dec, [facility] [address] [id number] [address] [place] [address], [place] [address] Dec, [facility] [address] [id number] [address] [place] [address], [place] [address] Dec, [facility] [address] [id number] [address] [place] [address], [place] [address] Dec, [facility] [address] [id number] [address] [place] [address], [place] [address] Nov, [facility] [address] [id number] [address] [place] [address], [place] [address] Nov, [facility] [address] [id number] [address] [place] [address], [place] [address] Oct, [facility] [address] [id number] [address] [place] [address], [place] [address] Oct, [facility] [address] [id number] [address] [place] [address], [place] [address] Oct, [facility] [address] [id number] [address] [place] [address], [place] [address] Oct, [facility] [address] [id number] [address] [place] [address], [place] [address] Sep, [facility] [address] [id number] [address] [place] [address] Sep, [facility] [address] [id number] [address] [place] [address] Sep, [facility] [address] [id number] [address] [place] [address], [place] [address] Sep, [facility] [address] [id number] [address] [place] [address], [place] [address] Aug, [facility] [address] [id number] [address] [place] [address], [place] [address] Aug, [facility] [address] [id number] [address] [place] [address], [place] [address] 07 Aug, 2013 [facility] [address] [id number] [address] [place] [address], [place] [address] Jul, [facility] [address] [id number] [address] [place] [address], [place] [address] Jul, [facility] [address] [id number] [address] [place] [address], [place] [address] Jun, [facility] [address] [id number] [address] [place] [address], [place] [address] Jun, [facility] [address] [id number] [address] [place] [address], [place] [address] May, [facility] [address] [id number] [address] [place] [address], [place] [address] May, [facility] [address] [id number] [address] [place] [address], [place] [address] Apr, [facility] [address] [id number] [address] [place] [address], [place] [address] March, [facility] [address] [id number] [address] [place] [address], [place] [address] March, [facility] [address] [id number] [address] [place] [address], [place] [address] Feb, [facility] [address] [id number] [address] [place] [address], [place] [address] Jan, [facility] [address] [id number] [address] [place] [address], [place] [address] Jan, [facility] [address] [id number] [address] [place] [address], [place] [address] Dec, [facility] [address] [id number] [address] [place] [address], [place] [address] Dec, [facility] [address] [id number] [address] [place] [address], [place] [address] Nov, [facility] [address] [id number] [address] [place] [address], [place] [address] Nov, [facility] [address] [id number] [address] [place] [address], [place] [address] Nov, [facility] [address] [id number] [address] [place] [address], [place] [address] Nov, [facility] [address] [id number] [address] [place] [address], [place] [address] Nov, [facility] [address] [id number] [address] [place] [address], [place] [address] Oct, [facility] [address] [id number] [address] [place] [address], [place] [address] Oct, [facility] [address] [id number] [address] [place] [address], [place] [address] Oct, [facility] [address] [id number] [address] [place] [address], [place] [address] Oct, [facility] [address] [id number] [address] [place] [address], [place] [address] Oct, [facility] [address] [id number] [address] [place] [address], [place] [address] Oct, [facility] [address] [id number] [address] [place] [address], [place] [address] Oct, [facility] [address] [id number] [address] [place] [address], [place] [address] Oct, [facility] [address] [id number] [address] [place] [address], [place] [address] Sep, [facility] [address] [id number] [address] [place] [address], [place] [address] Sep, [facility] [address] [id number] [address] [place] [address], [place] [address] Sep, [facility] [address] [id number] [address] [place] [address], [place] [address] Aug, [facility] [address] [id number] [address] [place] [address], [place] [address] 17 Aug, 2012 [facility] [address] [id number] [address] [place] [address], [place] [address] Aug, [facility] [address] [id number] [address] [place] [address], [place] [address] Aug, [facility] [address] [id number] [address] [place] [address], [place] [address] Aug, [facility] [address] [id number] [address] [place] [address], [place] [address] Jul, [facility] [address] [id number] [address] [place] [address], [place] [address] Jul, [facility] [address] [id number] [address] [place] [address], [place] [address] Jun, [facility] [address] [id number] [address] [place] [address], [place] [address] May, [facility] [address] [id number] [address] [place] [address], [place] [address] May, [facility] [address] [id number] [address] [place] [address], [place] [address] Apr, [facility] [address] [id number] [address] [place] [address], [place] [address] March, [facility] [address] [id number] [address] [place] [address], [place] [address] March, [facility] [address] [id number] [address] [place] [address], [place] [address] March, [facility] [facility] [address] [id number] [address] [place] [address], [place] [id number] March, [facility] [address] [id number] [address] [place] [address], [place] [id number] Feb, [facility] [address] [id number] [address] [place] [phone] Feb, [facility] [address] [id number] [address] [place] [phone] Jan, [facility] [address] [id number] [address] [place] [address], [place] [id number] 10 Dec, 2011 [facility] [address] [id number] [address] [place] [phone] 08 Dec, 2011 [facility] [address] [id number] [address] [place] [address], [place] [id number] Dec, [facility] [address] [id number] [address] [place] [address], [place] [id number] Nov, [facility] [address] [id number] [address] [place] [id number] Nov, [facility] [address] [id number] [address] [place] [id number] Nov, [facility] [address] [id number] [address] [place] [id number] Oct, [facility] [address] [id number] [address] [place] [id number] Sep, [facility] [address] [id number] [address] [place] [id number] Aug, [facility] [address] [id number] [address] [place] [phone] Aug, [facility] [address] [id number] [address] [place] [id number] May, [facility] [address] [id number] [address] [place] [phone] Sep, [facility] [address] [id number] [address] [place] [phone] Sep, IMMUNIZATIONS No Known Immunizations SOCIAL HISTORY Never Assessed REASON FOR VISIT laquita Kebede MA PLAN OF CARE Activity Details Follow Up 4 Weeks Reason: VITAL SIGNS Height 74.5 in 2017-07-19 Weight 264.4 lbs 2017-07-19 Heart Rate 76 bpm 2017-07-19 Respiratory Rate 20 2017-07-19 BMI 33.49 kg/m2 2017-07-19 Blood pressure systolic 112 mmHg 2017-07-19 Blood pressure diastolic 72 mmHg 2017-07-19 MEDICATIONS Medication Instructions Dosage Frequency Start Date End Date Duration S tatus Fish Oil by Oral route Jun, Acti ve Zyprexa 15 MG Orally Once a day 2 tablets 24h Jan, Active Rozerem 8 MG Orally Once a day 1 tablet at bedtime as needed 24h Jan, Active Seroquel 200 MG Orally Once a day 1 tablet 24h Jan, 30 days Active Vyvanse 70 MG Orally Once a day 1 capsule in the morning 24h Jun, Active Fluvoxamine Maleate 100 MG Orally Once a day 3 tablets 24h 10 Apr, 015 Active Seroquel 200 TAKE ONE TABLET BY MOUTH DAILY Active Clonidine HCl 0.1 MG Orally one tablet in the mor chloe, 2 tablets at 1:30 pm and 1 tablet at bedtime 1 tablet March, Act yong RESULTS No Results PROCEDURES Procedure Date Ordered Result Body Site PSYTX COMPLEX INTERACTIVE Jul 19, 2017 INSTRUCTIONS MEDICATIONS ADMINISTERED No Known Medications MEDICAL (GENERAL) HISTORY Type Description Date Medical History bipolar Medical History adhd Medical History anxiety
--- OUTSIDE RECORDS SUMMARY | 2020-03-18 15:36 | XMS REPORT ---
Author Author Jose Cruz FELDMAN Organization [facility] Address [address] [place] [address] Care Team Providers Care Ash Kier Boiler Name Role Phone FRANCIA CARLOS Unavailable PROBLEMS Type Condition ICD9-CM Code LOV37-TM Code Onset Dates Condition S tatus SNOMED Code Problem Bipolar disorder, unspecified 296.80 Active 77306224 Problem Bipolar disorder F31.9 Active 137 75618 Problem Bipolar I disorder, most recent episode (or current) mixed, moderate 296.62 Active 808951967 Problem Encounter for long-term (current) use of other medications V58.69 Active 916956657 Problem 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 Ac tive 52759146 Problem 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 314.00 Active 79109450 Problem Generalized anxiety disorder 300.02 A ctive 33502630 Problem Attention-deficit hyperactiv ity disorder, predominantly inattentive type F90.0 Active 07657667 Problem Intellectual disability F79 Active 90614532 Problem Attention deficit hyperactivity disorder F90.9 Active 083751426 Problem Intermittent explosive disorder F63.81 Active 68207280 Problem Moderate intellectual disability F71 Active 55210925 Problem Bipolar disorder, currently in remission, most recent episode unspecified F31.70 Active 88594163 ALLERGIES No Known Allergies ENCOUNTERS Encounter Location Date Diagnosis [facility] [address] [facility] [id number] [address] [place] [address] March, [facility] [address] [facility] [id number] [address] [place] [address] March, Bipolar disorder, currently in remission, most recent episode unspecified F31.70 ; Moderate intellectual disability 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 and Attention-deficit hyperactivity disorder, predominantly inattentive type F90.0 [facility] [address] [facility] [id number] [address] [place] [address] Feb, [facility] [address] [id number] [address] [place] [address] [id number] Feb, Dental examination Z01.20 [facility] [address] [id number] [address] [place] [address] Jan, [facility] [address] [id number] [address] [place] [address] Jan, [facility] [address] [id number] [address] [place] [address] Dec, [facility] [address] [id number] [address] [place] [address] Nov, [facility] [address] [id number] [address] [place] [address] [id number] Nov, Dental examination Z01.20 [facility] [address] [id number] [address] [place] [id number] Nov, Encounter for dental exam an d cleaning w/o abnormal findings Z01.20 [facility] [address] [id number] [address] [place] [address] Oct, [facility] [address] [id number] [address] [place] [address] Oct, Bipolar disorder, currently in remission, most recent episode unspecified F31.70 ; Moderate intellectual disability 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 and Attention-deficit hyperactivity disorder, predominantly inattentive type F90.0 [facility] [address] [id number] [address] [place] [address] Sep, [facility] [address] [id number] [address] [place] [address] Sep, [facility] [address] [id number] [address] [place] [address] Aug, [facility] [address] [id number] [address] [place] [address] Aug, Attention-deficit hyperactiv ity disorder, predominantly inattentive type F90.0 ; Moderate intellectual disability 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 and Bipolar disorder F31.9 [facility] [address] [id number] [address] [place] [id number] 11 Jul, 2017 Dental examination Z01.20 an d Dental caries K02.9 [facility] [address] [facility] [id number] [address] [place] [id number] 05 Jul, 2017 [facility] [address] [facility] [id number] [address] [place] [address] Jun, Bipolar disorder F31.9 ; Att ention-deficit hyperactivity disorder, predominantly inattentive type F90.0 and Moderate intellectual disability 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 [facility] [address] [facility] [id number] [address] [place] [address] Jun, [facility] [address] [facility] [id number] [address] [place] [address] May, [facility] [address] [place] [id number] [address] [place] [address] Apr, [facility] [address] [id number] [address] [place] [address] March, Intermittent explosive disor jocelyn F63.81 ; Attention deficit hyperactivity disorder F90.9 and Bipolar disorder F31.9 [facility] [address] [facility] [id number] [address] [place] [address] Feb, [facility] [address] [place] [id number] [address] [place] [address] Jan, [facility] [address] [place] [id number] [address] [place] [address] Dec, Intermittent explosive disor jocelyn F63.81 ; Attention deficit hyperactivity disorder F90.9 and Bipolar disorder, currently in remission, most recent episode unspecified F31.70 [facility] [address] [facility] [id number] [address] [place] [address] 13 Dec, 2016 Encounter for immunization Z 23 [facility] [address] [facility] [id number] [address] [place] [address] Nov, [facility] [address] [id number] [address] [place] [phone] Oct, [facility] [address] [id number] [address] [place] [address] Oct, [facility] [address] [id number] [address] [place] [address] [id number] Oct, Dental examination Z01.20 [facility] [address] [id number] [address] [place] [address] Sep, [facility] [address] [id number] [address] [place] [address] Sep, [facility] [address] [id number] [address] [place] [address] Sep, Intermittent explosive disor jocelyn F63.81 ; Bipolar disorder F31.9 and Attention deficit hyperactivity disorder F90.9 [facility] [address] [id number] [address] [place] [address] Aug, [facility] [address] [id number] [address] [place] [address] Aug, [facility] [address] [id number] [address] [place] [address] Aug, [facility] [address] [id number] [address] [place] [address] Aug, Attention deficit hyperactiv ity disorder F90.9 [facility] [address] [id number] [address] [place] [address] Jul, [facility] [address] [id number] [address] [place] [address] Jun, [facility] [address] [id number] [address] [place] [address] May, [facility] [address] [id number] [address] [place] [address] Apr, [facility] [address] [id number] [address] [place] [address] Apr, Bipolar disorder F31.9 ; Att ention deficit hyperactivity disorder F90.9 and Intermittent explosive disorder F63.81 [facility] [address] [id number] [address] [place] [address] March, [facility] [address] [id number] [address] [place] [address] Feb, [facility] [address] [id number] [address] [place] [address] Feb, [facility] [address] [id number] [address] [place] [address] Jan, [facility] [address] [id number] [address] [place] [id number] Jan, [facility] [address] [id number] [address] [place] [address] Dec, [facility] [address] [id number] [address] [place] [address] Nov, [facility] [address] [id number] [address] [place] [address] Nov, [facility] [address] [facility] [id number] [address] [place] [address] Nov, Attention deficit hyperactiv ity disorder F90.9 ; Intermittent explosive disorder F63.81 and Bipolar disorder F31.9 [facility] [address] [id number] [address] [place] [address] Oct, [facility] [address] [id number] [address] [place] [id number] Oct, [facility] [address] [id number] [address] [place] [address] Sep, [facility] [address] [id number] [address] [place] [address] Aug, [facility] [address] [id number] [address] [place] [id number] Jul, [facility] [address] [id number] [address] [place] [address] Jul, [facility] [address] [facility] [id number] [address] [place] [address] Jul, Anxiety, generalized 300.02 ; Bipolar disorder, unspecified 296.80 ; 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.00 ; 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 and Impulse control disorder, unspecified 312.30 [facility] [address] [id number] [address] [place] [address] Jul, [facility] [address] [facility] [id number] [address] [place] [address] Jun, [facility] [address] [facility] [id number] [address] [place] [address] May, [facility] [address] [facility] [id number] [address] [place] [address] Apr, [facility] [address] [facility] [id number] [address] [place] [address] Apr, Bipolar disorder, unspecifie d 296.80 ; Generalized anxiety disorder 300.02 and 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.00 [facility] [address] [facility] [id number] [address] [place] [address] Apr, [facility] [address] [facility] [id number] [address] [place] [address] March, [facility] [address] [facility] [id number] [address] [place] [address] March, [facility] [address] [facility] [id number] [address] [place] [address] March, [facility] [address] [facility] [id number] [address] [place] [phone] March, [facility] [address] [facility] [id number] [address] [place] [id number] 14 Feb, 2015 [facility] [address] [id number] [address] [place] [address], [place] [address] 13 Feb, 2015 [facility] [address] [id number] [address] [place] [address], [place] [address] 23 Jan, 2015 [facility] [address] [id number] [address] [place] [address], [place] [address] Jan, [facility] [address] [id number] [address] [place] [address], [place] [address] Jan, [facility] [address] [id number] [address] [place] [address], [place] [address] Jan, [facility] [address] [id number] [address] [place] [address], [place] [address] Jan, [facility] [address] [id number] [address] [place] [address], [place] [address] Dec, [facility] [address] [id number] [address] [place] [address], [place] [address] Dec, [facility] [address] [id number] [address] [place] [address], [place] [address] Nov, [facility] [address] [id number] [address] [place] [address], [place] [address] Nov, [facility] [address] [id number] [address] [place] [address], [place] [address] Nov, [facility] [address] [id number] [address] [place] [address], [place] [address] Oct, [facility] [address] [id number] [address] [place] [address], [place] [address] Oct, [facility] [address] [id number] [address] [place] [address], [place] [address] Oct, [facility] [address] [id number] [address] [place] [address], [place] [address] Oct, [facility] [address] [id number] [address] [place] [address], [place] [address] Oct, [facility] [address] [id number] [address] [place] [address], [place] [address] Oct, [facility] [address] [id number] [address] [place] [address], [place] [address] Sep, [facility] [address] [id number] [address] [place] [address], [place] [address] Sep, [facility] [address] [id number] [address] [place] [address], [place] [address] Sep, [facility] [address] [id number] [address] [place] [address], [place] [address] Aug, [facility] [address] [id number] [address] [place] [address], [place] [address] Aug, [facility] [address] [id number] [address] [place] [address], [place] [address] Jul, [facility] [address] [id number] [address] [place] [address], [place] [address] Jul, [facility] [address] [id number] [address] [place] [address], [place] [address] Jun, [facility] [address] [id number] [address] [place] [address], [place] [address] Jun, [facility] [address] [id number] [address] [place] [address], [place] [address] Jun, [facility] [address] [id number] [address] [place] [address], [place] [address] Jun, [facility] [address] [id number] [address] [place] [address], [place] [address] May, [facility] [address] [id number] [address] [place] [address], [place] [address] May, [facility] [address] [id number] [address] [place] [address], [place] [address] May, [facility] [address] [id number] [address] [place] [address], [place] [address] Apr, [facility] [address] [id number] [address] [place] [address], [place] [address] Apr, [facility] [address] [id number] [address] [place] [address], [place] [address] Apr, [facility] [address] [id number] [address] [place] [address], [place] [address] Apr, [facility] [address] [id number] [address] [place] [address], [place] [address] March, [facility] [address] [id number] [address] [place] [address], [place] [address] March, [facility] [address] [id number] [address] [place] [address], [place] [address] March, [facility] [address] [id number] [address] [place] [address], [place] [address] March, [facility] [address] [id number] [address] [place] [address], [place] [address] Feb, [facility] [address] [id number] [address] [place] [address], [place] [address] Feb, [facility] [address] [id number] [address] [place] [address], [place] [address] Jan, [facility] [address] [id number] [address] [place] [address], [place] [address] Jan, [facility] [address] [id number] [address] [place] [address], [place] [address] Jan, [facility] [address] [id number] [address] [place] [address], [place] [address] Jan, [facility] [address] [id number] [address] [place] [address], [place] [address] Jan, [facility] [address] [id number] [address] [place] [address], [place] [address] Jan, [facility] [address] [id number] [address] [place] [address], [place] [address] Jan, [facility] [address] [id number] [address] [place] [address], [place] [address] Jan, [facility] [address] [id number] [address] [place] [address], [place] [address] Dec, [facility] [address] [id number] [address] [place] [address], [place] [address] Dec, [facility] [address] [id number] [address] [place] [address], [place] [address] Dec, [facility] [address] [id number] [address] [place] [address], [place] [address] Dec, [facility] [address] [id number] [address] [place] [address], [place] [address] Nov, [facility] [address] [id number] [address] [place] [address], [place] [address] Nov, [facility] [address] [id number] [address] [place] [address], [place] [address] Oct, [facility] [address] [id number] [address] [place] [address], [place] [address] Oct, [facility] [address] [id number] [address] [place] [address], [place] [address] Oct, [facility] [address] [id number] [address] [place] [address], [place] [address] Oct, [facility] [address] [id number] [address] [place] [address], [place] [address] Sep, [facility] [address] [id number] [address] [place] [address], [place] [address] Sep, [facility] [address] [id number] [address] [place] [address], [place] [address] Sep, [facility] [address] [id number] [address] [place] [address], [place] [address] Sep, [facility] [address] [id number] [address] [place] [address], [place] [address] Aug, [facility] [address] [id number] [address] [place] [address], [place] [address] Aug, [facility] [address] [id number] [address] [place] [address], [place] [address] Aug, [facility] [address] [id number] [address] [place] [address], [place] [address] Jul, [facility] [address] [id number] [address] [place] [address], [place] [address] Jul, [facility] [address] [id number] [address] [place] [address], [place] [address] Jun, [facility] [address] [id number] [address] [place] [address], [place] [address] Jun, [facility] [address] [id number] [address] [place] [address], [place] [address] May, [facility] [address] [id number] [address] [place] [address], [place] [address] May, [facility] [address] [id number] [address] [place] [address], [place] [address] Apr, [facility] [address] [id number] [address] [place] [address], [place] [address] March, [facility] [address] [id number] [address] [place] [address], [place] [address] March, [facility] [address] [id number] [address] [place] [address], [place] [address] Feb, [facility] [address] [id number] [address] [place] [address], [place] [address] Jan, [facility] [address] [id number] [address] [place] [address], [place] [address] Jan, [facility] [address] [id number] [address] [place] [address], [place] [address] Dec, [facility] [address] [id number] [address] [place] [address], [place] [address] Dec, [facility] [address] [id number] [address] [place] [address], [place] [address] Nov, [facility] [address] [id number] [address] [place] [address], [place] [address] Nov, [facility] [address] [id number] [address] [place] [address], [place] [address] Nov, [facility] [address] [id number] [address] [place] [address], [place] [address] Nov, [facility] [address] [id number] [address] [place] [address], [place] [address] Nov, [facility] [address] [id number] [address] [place] [address], [place] [address] Oct, [facility] [address] [id number] [address] [place] [address], [place] [address] Oct, [facility] [address] [id number] [address] [place] [address], [place] [address] Oct, [facility] [address] [id number] [address] [place] [address], [place] [address] Oct, [facility] [address] [id number] [address] [place] [address], [place] [address] Oct, [facility] [address] [id number] [address] [place] [address], [place] [address] Oct, [facility] [address] [id number] [address] [place] [address], [place] [address] Oct, [facility] [address] [id number] [address] [place] [address], [place] [address] Oct, [facility] [address] [id number] [address] [place] [address], [place] [address] 07 Sep, 2012 [facility] [address] [id number] [address] [place] [address], [place] [address] Sep, [facility] [address] [id number] [address] [place] [address], [place] [address] Sep, [facility] [address] [id number] [address] [place] [address], [place] [address] Aug, [facility] [address] [id number] [address] [place] [address], [place] [address] Aug, [facility] [address] [id number] [address] [place] [address], [place] [address] Aug, [facility] [address] [id number] [address] [place] [address], [place] [address] Aug, [facility] [address] [id number] [address] [place] [address], [place] [address] Aug, [facility] [address] [id number] [address] [place] [address], [place] [address] Jul, [facility] [address] [id number] [address] [place] [address], [place] [address] Jul, [facility] [address] [id number] [address] [place] [address], [place] [address] Jun, [facility] [address] [id number] [address] [place] [address], [place] [address] May, [facility] [address] [id number] [address] [place] [address], [place] [address] May, [facility] [address] [id number] [address] [place] [address], [place] [address] Apr, [facility] [address] [id number] [address] [place] [address], [place] [address] March, [facility] [address] [id number] [address] [place] [address], [place] [address] March, [facility] [facility] [address] [id number] [address] [place] [address], [place] [address] March, [facility] [address] [id number] [address] [place] [address], [place] [address] March, [facility] [address] [id number] [address] [place] [address], [place] [address] Feb, [facility] [address] [id number] [address] [place] [address], [place] [address] Feb, [facility] [address] [id number] [address] [place] [address], [place] [address] Jan, [facility] [address] [id number] [address] [place] [address], [place] [address] Dec, [facility] [address] [id number] [address] [place] [address], [place] [address] Dec, [facility] [address] [id number] [address] [place] [address], [place] [address] Dec, [facility] [address] [id number] [address] [place] [address], [place] [address] Nov, [facility] [address] [id number] [address] [place] [address], [place] [address] Nov, [facility] [address] [id number] [address] [place] [address], [place] [address] Nov, [facility] [address] [id number] [address] [place] [address], [place] [address] Oct, [facility] [address] [id number] [address] [place] [address], [place] [address] Sep, [facility] [address] [id number] [address] [place] [address], [place] [address] Aug, [facility] [address] [id number] [address] [place] [address], [place] [address] Aug, [facility] [address] [id number] [address] [place] [id number] May, [facility] [address] [facility] [id number] [address] [place] [id number] Sep, [facility] [address] [facility] [id number] [address] [place] [id number] Sep, IMMUNIZATIONS No Known Immunizations SOCIAL HISTORY Never Assessed REASON FOR VISIT F/U--H Wili ALCOCER PLAN OF CARE Activity Details Follow Up 3 Months Reason: VITAL SIGNS Height 74.5 in 2017-10-31 Weight 265.7 lbs 2017-10-31 Heart Rate 82 bpm 2017-10-31 Respiratory Rate 20 2017-10-31 BMI 33.65 kg/m2 2017-10-31 Blood pressure systolic 118 mmHg 2017-10-31 Blood pressure diastolic 76 mmHg 2017-10-31 MEDICATIONS Medication Instructions Dosage Frequency Start Date End Date Duration S tatus Clonidine HCl 0.1 MG Orally one tablet in the mor chloe, 2 tablets at 2pm and 1 tablet at bedtime 1 tablet March, 30 days Activ e Fluvoxamine Maleate 100 MG Orally once at night 3 tablets Apr, 30 days Active Seroquel 200 MG Orally at night 1 tablet Jan, 30 days Active Docusate Sodium 100 Orally Once a day 1 capsule as needed 24h 30 Not-Taking Rozerem 8 MG Orally at bedtime as needed 1 tablet Jan, 30 days Active Vyvanse 70 MG Orally Once a day 1 capsule in the morning 24h Oct, 28 days Active Zyprexa 10 MG Orally at bedtime 1 tablet 30 days Active Fish Oil by Oral route Jun, Not- Taking RESULTS No Results PROCEDURES No Known procedures INSTRUCTIONS MEDICATIONS ADMINISTERED No Known Medications MEDICAL (GENERAL) HISTORY Type Description Date Medical History bipolar Medical History adhd Medical History anxiety
--- OUTSIDE RECORDS SUMMARY | 2020-03-18 15:36 | XMS REPORT ---
Author Author Jose Cruz HERNANDEZ Organization [employer] Address Unknown Phone Unavailable Care Team Providers Care Cam Maker Name Role Phone BRODIE HERNANDEZ CP Unavailable Allergies No Known Allergies Problems Problem Type Condition Code Onset Dates Condition Statu s Problem Encounter for long-term (current) use of other medicat ions V58.69 Active Problem Bipolar disorder, unspecified 296.80 Active Problem Bipolar I disorder, most recent episode (or current) mixed, moderate 296.62 Active Problem 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 Active Problem Generalized anxiety disorder 300.02 Active Problem 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 Tammie to sign for Mazin February 13, 2015 1 capsule Results No Known Results Summary Purpose [employer] Submission
--- OUTSIDE RECORDS SUMMARY | 2020-03-18 15:36 | XMS REPORT ---
Author Author Jose Cruz HERNANDEZ Organization [employer] Address Unknown Phone Unavailable Care Team Providers Care Mh Teacher Name Role Phone BRODIE HERNANDEZ CP Unavailable [...] Start Date End Date Status Dosage Vyvanse [facility] [address]-88 50 MG Orally 2 t imes per day in the morning and at noon, for ADHD. Dr Moyer to sign for Mazin February 13, 2015 1 capsule Results No Known Results Summary Purpose [employer] Submission
--- OUTSIDE RECORDS SUMMARY | 2020-03-18 15:36 | XMS REPORT ---
Author Author Jose Cruz HERNANDEZ [facility] [employer] Address Unknown Phone Unavailable Care Team Providers Care Electrical Design Technician Name Role Phone BRODIE HERNANDEZ CP Unavailable Allergies, Adverse Reactions, Alerts Substance Reaction Event Type N.K.D.A. Info Not Available Non Drug Allergy Problems Problem Type Condition ICD-9 Code Onset Dates Condition Statu s Assessment 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 Active Assessment Bipolar disorder, unspecified 296.80 Active Assessment 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 314.00 Active Assessment Impulse control disorder, unspecified 312.30 Active Problem Encounter for long-term (current) use of other medicat ions V58.69 Active Problem Bipolar disorder, unspecified 296.80 Active Problem Bipolar I disorder, most recent episode (or current) mixed, moderate 296.62 Active Problem 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 Active Assessment Anxiety, generalized 300.02 Active Problem Generalized anxiety disorder 300.02 Active Problem 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 314.00 Active Medications Medication Code System Code Instructions Start Date End Date Status Dosage Fluvoxamine Maleate [facility][NOTE 3] [address]-95 100 MG Orally Once a day J 2014 3 tablets Rozerem [facility][NOTE 3] [address]-17 8 MG Orally Once a day February 05, 2015 1 tablet at bedtime as needed Docusate Sodium [facility][NOTE 3] [address]-13 100 MG Orally Once a day AprSep 04, 2015 1 capsule as needed Fish Oil [facility][NOTE 3] [address]-86 Jul 25, 2013 by O ral route Seroquel [facility][NOTE 3] [address]-25 200 MG Orally Once a day February 05, 2015 1 tablet Zyprexa [facility][NOTE 3] [address]-18 15 MG Orally Once a day February 05, 2015 2 tablets Clonidine HCl [facility][NOTE 3] [address]-18 0.1 MG Orally three times a day May 07, 2015 1 tablet Vyvanse [facility][NOTE 3] [address]-47 50 MG Orally 2 t imes per day in the morning and at noon, for ADHD February 13, 2015 1 capsule Zyprexa Zydis [facility][NOTE 3] [address]-76 10 MG Orally Once a day Nov 13, 2014 1 tablet on the tongue and allow to dissolve Procedures Procedure Coding System Code Date Office Visit, Pradip Pt., Level 3 CPT-4 86867 Aug 06, 2015 Vital Signs Date/Time: Aug 06, 2015 Temperature 98.0 F Weight 251.9 lbs Height 74.5 in BMI 31.91 Index Blood Pressure Diastolic 62 mmHg Blood Pressure Systolic 100 mmHg Cardiac Monitoring Heart Rate 88 bpm Results No Known Results Summary Purpose [employer] Submission
--- OUTSIDE RECORDS SUMMARY | 2020-03-18 15:36 | XMS REPORT ---
Author Author Jose Cruz FELDMAN Organization [facility] [place] Address [address] [place] [address] Care Team Providers Care Slotter Operator Name Role Phone FRANCIAANGIECARLOS Unavailable PROBLEMS Type Condition ICD9-CM Code QJK19-BU Code Onset Dates Condition S tatus SNOMED Code Problem Bipolar disorder, unspecified 296.80 Active 04336730 Problem Bipolar disorder F31.9 Active 137 89317 Problem Bipolar I disorder, most recent episode (or current) mixed, moderate 296.62 Active 315580947 Problem Encounter for long-term (current) use of other medications V58.69 Active 643700741 Problem 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 Ac tive 82367541 Problem 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 314.00 Active 16857704 Problem Generalized anxiety disorder 300.02 A ctive 96077067 Problem Attention-deficit hyperactiv ity disorder, predominantly inattentive type F90.0 Active 34795297 Problem Intellectual disability F79 Active 11416712 Problem Attention deficit hyperactivity disorder F90.9 Active 437148536 Problem Intermittent explosive disorder F63.81 Active 64566254 Problem Moderate intellectual disability F71 Active 76095981 Problem Bipolar disorder, currently in remission, most recent episode unspecified F31.70 Active 68037726 ALLERGIES No Known Allergies ENCOUNTERS Encounter Location Date Diagnosis [facility] [place] [address] [facility] [id number] [address] [place] [phone] March, Bipolar disorder, currently in remission, most recent episode unspecified F31.70 ; Moderate intellectual disability F71 and Attention-deficit hyperactivity disorder, predominantly inattentive type F90.0 [facility] [place] [address] [facility] [id number] [address] [place] [address] Feb, [facility] [address] [id number] [address] [place] [address] [id number] Feb, Dental examination Z01.20 [facility] [place] [address] [id number] [address] [place] [phone] Jan, [facility] [place] [address] [id number] [address] [place] [address] Jan, [facility] [place] [address] [id number] [address] [place] [phone] Dec, [facility] [place] [address] [id number] [address] [place] [phone] Nov, [facility] [address] [id number] [address] [place] [address] [id number] Nov, Encounter for dental exam an d cleaning w/o abnormal findings Z01.20 [facility] [address] [id number] [address] [place] [address] [id number] Nov, Dental examination Z01.20 [facility] [place] [address] [id number] [address] [place] [address] Oct, [facility] [place] [address] [id number] [address] [place] [address] Oct, Bipolar disorder, currently in remission, most recent episode unspecified F31.70 ; Moderate intellectual disability F71 and Attention-deficit hyperactivity disorder, predominantly inattentive type F90.0 [facility] [place] [address] [id number] [address] [place] [phone] Sep, [facility] [place] [address] [facility] [id number] [address] [place] [phone] Sep, [facility] [place] [address] [id number] [address] [place] [address] Aug, [facility] [place] [address] [id number] [address] [place] [id number] Aug, Attention-deficit hyperactiv ity disorder, predominantly inattentive type F90.0 ; Moderate intellectual disability F71 and Bipolar disorder F31.9 [facility] [address] [id number] [address] [place] [address] [id number] Jul, Dental examination Z01.20 an d Dental caries K02.9 [facility] [place] [address] [id number] [address] [place] [id number] 05 Jul, 2017 [facility] [place] [address] [facility] [id number] [address] [place] [phone] Jun, Bipolar disorder F31.9 ; Att ention-deficit hyperactivity disorder, predominantly inattentive type F90.0 and Moderate intellectual disability F71 [facility] [place] [address] [id number] [address] [place] [phone] Jun, [facility] [place] [address] [facility] [id number] [address] [place] [address] May, [facility] [place] [address] [facility] [id number] [address] [place] [address] Apr, [place] [address] [place] [id number] [place] [phone] March, Intermittent explosive disor jocelyn F63.81 ; Attention deficit hyperactivity disorder F90.9 and Bipolar disorder F31.9 [facility] [place] [address] [facility] [id number] [address] [place] [phone] Feb, [facility] [place] [address] [facility] [id number] [address] [place] [address] Jan, [facility] [place] [address] [id number] [address] [place] [id number] 13 Dec, 2016 Encounter for immunization Z 23 [facility] [place] [address] [facility] [id number] [address] [place] [id number] 13 Dec, 2016 Intermittent explosive disor jocelyn F63.81 ; Attention deficit hyperactivity disorder F90.9 and Bipolar disorder, currently in remission, most recent episode unspecified F31.70 [facility] [place] [address] [facility] [id number] [address] [place] [phone] Nov, [facility] [place] [address] [facility] [id number] [address] [place] [phone] Oct, [facility] [place] [address] [facility] [id number] [address] [place] [id number] Oct, [facility] [address] [id number] [address] [place] [address] [id number] Oct, Dental examination Z01.20 [facility] [place] [address] [id number] [address] [place] [phone] Sep, [facility] [place] [address] [id number] [address] [place] [phone] Sep, [facility] [place] [address] [id number] [address] [place] [phone] Sep, Intermittent explosive disor jocelyn F63.81 ; Bipolar disorder F31.9 and Attention deficit hyperactivity disorder F90.9 [facility] [place] [address] [id number] [address] [place] [id number] Aug, [facility] [place] [address] [id number] [address] [place] [phone] Aug, [facility] [place] [address] [id number] [address] [place] [phone] Aug, [facility] [place] [address] [facility] [id number] [address] [place] [phone] Aug, Attention deficit hyperactiv ity disorder F90.9 [facility] [place] [address] [id number] [address] [place] [phone] Jul, [facility] [place] [address] [id number] [address] [place] [phone] Jun, [facility] [place] [address] [id number] [address] [place] [id number] May, [facility] [place] [address] [id number] [address] [place] [phone] Apr, [facility] [place] [address] [facility] [id number] [address] [place] [address] Apr, Bipolar disorder F31.9 ; Att ention deficit hyperactivity disorder F90.9 and Intermittent explosive disorder F63.81 [facility] [place] [address] [id number] [address] [place] [phone] March, [facility] [place] [address] [id number] [address] [place] [phone] Feb, [facility] [place] [address] [facility] [id number] [address] [place] [phone] Feb, [facility] [place] [address] [id number] [address] [place] [phone] Jan, [facility] [place] [address] [id number] [address] [place] [phone] Jan, [facility] [place] [address] [id number] [address] [place] [phone] Dec, [facility] [place] [address] [facility] [id number] [address] [place] [address] Nov, [facility] [place] [address] [id number] [address] [place] [phone] Nov, [facility] [place] [address] [id number] [address] [place] [address] Nov, Attention deficit hyperactiv ity disorder F90.9 ; Intermittent explosive disorder F63.81 and Bipolar disorder F31.9 [facility] [place] [address] [facility] [id number] [address] [place] [phone] Oct, [facility] [place] [address] [id number] [address] [place] [phone] Oct, [facility] [place] [address] [facility] [id number] [address] [place] [phone] Sep, [facility] [place] [address] [facility] [id number] [address] [place] [phone] Aug, [facility] [place] [address] [facility] [id number] [address] [place] [phone] Jul, [facility] [place] [address] [id number] [address] [place] [phone] Jul, [facility] [place] [address] [id number] [address] [place] [address] Jul, Anxiety, generalized 300.02 ; Bipolar disorder, unspecified 296.80 ; 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.00 ; 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 and Impulse control disorder, unspecified 312.30 [facility] [place] [address] [facility] [id number] [address] [place] [id number] Jul, [facility] [place] [address] [facility] [id number] [address] [place] [phone] Jun, [facility] [place] [address] [facility] [id number] [address] [place] [address] May, [facility] [place] [address] [facility] [id number] [address] [place] [phone] Apr, [facility] [place] [address] [facility] [id number] [address] [place] [address] Apr, Bipolar disorder, unspecifie d 296.80 ; Generalized anxiety disorder 300.02 and 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.00 [facility] [place] [address] [facility] [id number] [address] [place] [id number] Apr, [facility] [place] [address] [facility] [id number] [address] [place] [phone] March, [facility] [place] [address] [facility] [id number] [address] [place] [phone] March, [facility] [place] [address] [facility] [id number] [address] [place] [phone] March, [facility] [place] [address] [facility] [id number] [address] [place] [phone] March, [facility] [place] [address] [facility] [id number] [address] [place] [phone] Feb, [facility] [place] [address] [facility] [id number] [address] [place] [phone] Feb, [facility] [address] [id number] [facility] [place] [address] Jan, [facility] [address] [id number] [address] [place] [address], [place] [address] Jan, [facility] [address] [id number] [address] [place] [address], [place] [address] Jan, [facility] [address] [id number] [address] [place] [address], [place] [address] Jan, [facility] [address] [id number] [address] [place] [address], [place] [address] Jan, [facility] [address] [id number] [address] [place] [address], [place] [address] Dec, [facility] [address] [id number] [address] [place] [address], [place] [address] Dec, [facility] [address] [id number] [address] [place] [address], [place] [address] Nov, [facility] [address] [id number] [address] [place] [address], [place] [address] Nov, [facility] [address] [id number] [address] [place] [address], [place] [address] Nov, [facility] [address] [id number] [address] [place] [address], [place] [address] Oct, [facility] [address] [id number] [address] [place] [address], [place] [address] Oct, [facility] [address] [id number] [address] [place] [address], [place] [address] Oct, [facility] [address] [id number] [address] [place] [address], [place] [address] Oct, [facility] [address] [id number] [address] [place] [address], [place] [address] Oct, [facility] [address] [id number] [address] [place] [address], [place] [address] Oct, [facility] [address] [id number] [address] [place] [address], [place] [address] Sep, [facility] [address] [id number] [address] [place] [address], [place] [address] Sep, [facility] [address] [id number] [address] [place] [address], [place] [address] Sep, [facility] [address] [id number] [address] [place] [address], [place] [address] Aug, [facility] [address] [id number] [address] [place] [address], [place] [address] Aug, [facility] [address] [id number] [address] [place] [address], [place] [address] Jul, [facility] [address] [id number] [address] [place] [address], [place] [address] Jul, [facility] [address] [id number] [address] [place] [address], [place] [address] Jun, [facility] [address] [id number] [address] [place] [address], [place] [address] Jun, [facility] [address] [id number] [address] [place] [address], [place] [address] Jun, [facility] [address] [id number] [address] [place] [address], [place] [address] Jun, [facility] [address] [id number] [address] [place] [address], [place] [address] May, [facility] [address] [id number] [address] [place] [address], [place] [address] May, [facility] [address] [id number] [address] [place] [address], [place] [address] May, [facility] [address] [id number] [address] [place] [address], [place] [address] Apr, [facility] [address] [id number] [address] [place] [address], [place] [address] Apr, [facility] [address] [id number] [address] [place] [address], [place] [address] Apr, [facility] [address] [id number] [address] [place] [address], [place] [address] Apr, [facility] [address] [id number] [address] [place] [address], [place] [address] March, [facility] [address] [id number] [address] [place] [address], [place] [address] March, [facility] [address] [id number] [address] [place] [address], [place] [address] March, [facility] [address] [id number] [address] [place] [address], [place] [address] March, [facility] [address] [id number] [address] [place] [address], [place] [address] Feb, [facility] [address] [id number] [address] [place] [address], [place] [address] Feb, [facility] [address] [id number] [address] [place] [address], [place] [address] Jan, [facility] [address] [id number] [address] [place] [address], [place] [address] Jan, [facility] [address] [id number] [address] [place] [address], [place] [address] Jan, [facility] [address] [id number] [address] [place] [address], [place] [address] Jan, [facility] [address] [id number] [address] [place] [address], [place] [address] Jan, [facility] [address] [id number] [address] [place] [address], [place] [address] Jan, [facility] [address] [id number] [address] [place] [address], [place] [address] Jan, [facility] [address] [id number] [address] [place] [address], [place] [address] Jan, [facility] [address] [id number] [address] [place] [address], [place] [address] Dec, [facility] [address] [id number] [address] [place] [address], [place] [address] Dec, [facility] [address] [id number] [address] [place] [address], [place] [address] Dec, [facility] [address] [id number] [address] [place] [address], [place] [address] Dec, [facility] [address] [id number] [address] [place] [address], [place] [address] Nov, [facility] [address] [id number] [address] [place] [address], [place] [address] Nov, [facility] [address] [id number] [address] [place] [address], [place] [address] Oct, [facility] [address] [id number] [address] [place] [address], [place] [address] Oct, [facility] [address] [id number] [address] [place] [address], [place] [address] Oct, [facility] [address] [id number] [address] [place] [address], [place] [address] Oct, [facility] [address] [id number] [address] [place] [address], [place] [address] Sep, [facility] [address] [id number] [address] [place] [address], [place] [address] Sep, [facility] [address] [id number] [address] [place] [address], [place] [address] Sep, [facility] [address] [id number] [address] [place] [address], [place] [address] Sep, [facility] [address] [id number] [address] [place] [address], [place] [address] 10 Aug, 2013 [facility] [address] [id number] [address] [place] [address], [place] [address] 10 Aug, 2013 [facility] [address] [id number] [address] [place] [address], [place] [address] 07 Aug, 2013 [facility] [address] [id number] [address] [place] [address], [place] [address] Jul, [facility] [address] [id number] [address] [place] [address], [place] [address] Jul, [facility] [address] [id number] [address] [place] [address], [place] [address] Jun, [facility] [address] [id number] [address] [place] [address], [place] [address] Jun, [facility] [address] [id number] [address] [place] [address], [place] [address] 16 May, 2013 [facility] [address] [id number] [address] [place] [address], [place] [address] May, [facility] [address] [id number] [address] [place] [address], [place] [address] Apr, [facility] [address] [id number] [address] [place] [address], [place] [address] March, [facility] [address] [id number] [address] [place] [address], [place] [address] March, [facility] [address] [id number] [address] [place] [address], [place] [address] Feb, [facility] [address] [id number] [address] [place] [address], [place] [address] Jan, [facility] [address] [id number] [address] [place] [address], [place] [address] Jan, [facility] [address] [id number] [address] [place] [address], [place] [address] Dec, [facility] [address] [id number] [address] [place] [address], [place] [address] Dec, [facility] [address] [id number] [address] [place] [address], [place] [address] Nov, [facility] [address] [id number] [address] [place] [address], [place] [address] Nov, [facility] [address] [id number] [address] [place] [address], [place] [address] Nov, [facility] [address] [id number] [address] [place] [address], [place] [address] Nov, [facility] [address] [id number] [address] [place] [address], [place] [address] Nov, [facility] [address] [id number] [address] [place] [address], [place] [address] Oct, [facility] [address] [id number] [address] [place] [address], [place] [address] Oct, [facility] [address] [id number] [address] [place] [address], [place] [address] Oct, [facility] [address] [id number] [address] [place] [address], [place] [address] Oct, [facility] [address] [id number] [address] [place] [address], [place] [address] Oct, [facility] [address] [id number] [address] [place] [address], [place] [address] Oct, [facility] [address] [id number] [address] [place] [address], [place] [address] Oct, [facility] [address] [id number] [address] [place] [address], [place] [address] Oct, [facility] [address] [id number] [address] [place] [address], [place] [address] Sep, [facility] [address] [id number] [address] [place] [address], [place] [address] Sep, [facility] [address] [id number] [address] [place] [address], [place] [address] Sep, [facility] [address] [id number] [address] [place] [address], [place] [address] Aug, [facility] [address] [id number] [address] [place] [address], [place] [address] Aug, [facility] [address] [id number] [address] [place] [address], [place] [address] Aug, [facility] [address] [id number] [address] [place] [address], [place] [address] Aug, [facility] [address] [id number] [address] [place] [address], [place] [address] Aug, [facility] [address] [id number] [address] [place] [address], [place] [address] Jul, [facility] [address] [id number] [address] [place] [address], [place] [address] Jul, [facility] [address] [id number] [address] [place] [address], [place] [address] Jun, [facility] [address] [id number] [address] [place] [address], [place] [address] May, [facility] [address] [id number] [address] [place] [address], [place] [address] May, [facility] [address] [id number] [address] [place] [address], [place] [address] Apr, [facility] [address] [id number] [address] [place] [address], [place] [address] March, [facility] [address] [id number] [address] [place] [address], [place] [address] March, [facility] [address] [id number] [address] [place] [address], [place] [address] March, [facility] [address] [id number] [address] [place] [address], [place] [address] March, [facility] [address] [id number] [address] [place] [address], [place] [address] Feb, [facility] [address] [id number] [address] [place] [address], [place] [address] Feb, [facility] [address] [id number] [address] [place] [address], [place] [address] Jan, [facility] [address] [id number] [address] [place] [address], [place] [address] Dec, [facility] [address] [id number] [address] [place] [address], [place] [address] Dec, [facility] [address] [id number] [address] [place] [address], [place] [address] Dec, [facility] [address] [id number] [address] [place] [address], [place] [address] Nov, [facility] [address] [id number] [address] [place] [address], [place] [address] Nov, [facility] [address] [id number] [address] [place] [address], [place] [address] Nov, [facility] [address] [id number] [address] [place] [address], [place] [address] Oct, [facility] [address] [id number] [address] [place] [address], [place] [address] Sep, [facility] [address] [id number] [address] [place] [address], [place] [address] Aug, [facility] [address] [id number] [address] [place] [address], [place] [address] Aug, [facility] [address] [id number] [address] [place] [address], [place] [address] May, [facility] [address] [id number] [address] [place] [address] Sep, [facility] [address] [facility] [id number] [address] [place] [address] Sep, IMMUNIZATIONS No Known Immunizations SOCIAL HISTORY Never Assessed REASON FOR VISIT F/U PLAN OF CARE Activity Details Follow Up 2 Months Reason: VITAL SIGNS Height 74.5 in 2017-08-29 Weight 258.0 lbs 2017-08-29 Heart Rate 64 bpm 2017-08-29 Respiratory Rate 20 2017-08-29 BMI 32.68 kg/m2 2017-08-29 Blood pressure systolic 110 mmHg 2017-08-29 Blood pressure diastolic 74 mmHg 2017-08-29 MEDICATIONS Medication Instructions Dosage Frequency Start Date End Date Duration S khoaus Clonidine HCl 0.1 MG Orally one tablet in the mor chloe, 2 tablets at 2pm and 1 tablet at bedtime 1 tablet March, 30 days Activ e Zyprexa 20 MG Orally at bedtime 1 tablet Jan, 30 days Active Seroquel 200 MG Orally at night 1 tablet Jan, 30 days Active Fluvoxamine Maleate 100 MG Orally once at night 3 tablets Apr, 30 days Active Rozerem 8 MG Orally at bedtime as needed 1 tablet at bedtime as nee ded Jan, 30 days Active Vyvanse 70 MG Orally Once a day 1 capsule in the morning 24h Aug, 28 days Active RESULTS No Results PROCEDURES No Known procedures INSTRUCTIONS MEDICATIONS ADMINISTERED No Known Medications MEDICAL (GENERAL) HISTORY Type Description Date Medical History bipolar Medical History adhd Medical History anxiety
--- OUTSIDE RECORDS SUMMARY | 2020-03-18 15:36 | XMS REPORT ---
Author Author Jose Cruz HERNANDEZ Organization [employer] Address Unknown Phone Unavailable Care Team Providers Care Percher Name Role Phone BRODIE HERNANDEZ CP Unavailable [...] Start Date End Date Status Dosage Vyvanse [facility] [id number] 50 MG Orally 2 t imes per day in the morning and at noon, for ADHD. Tammie to sign for Mazin February 13, 2015 1 capsule Results No Known Results Summary Purpose [employer] Submission
--- OUTSIDE RECORDS SUMMARY | 2020-03-18 15:36 | XMS REPORT ---
Author Author Jose Cruz FELDMAN Organization [facility] Address [address] [place] [address] Care Team Providers Care Thread Laster Name Role Phone FRANCIA CARLOS Unavailable PROBLEMS Type Condition ICD9-CM Code NMJ19-GS Code Onset Dates Condition S tatus SNOMED Code Problem Bipolar disorder, unspecified 296.80 Active 81202454 Problem Bipolar disorder F31.9 Active 137 13373 Problem Bipolar I disorder, most recent episode (or current) mixed, moderate 296.62 Active 324041668 Problem Encounter for long-term (current) use of other medications V58.69 Active 732878491 Problem 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 Ac tive 26905641 Problem 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 314.00 Active 96481114 Problem Generalized anxiety disorder 300.02 A ctive 81439517 Problem Attention-deficit hyperactiv ity disorder, predominantly inattentive type F90.0 Active 16333326 Problem Intellectual disability F79 Active 30860560 Problem Attention deficit hyperactivity disorder F90.9 Active 433606935 Problem Intermittent explosive disorder F63.81 Active 10922316 Problem Moderate intellectual disability F71 Active 63013497 Problem Bipolar disorder, currently in remission, most recent episode unspecified F31.70 Active 78678019 ALLERGIES No Information ENCOUNTERS Encounter Location Date Diagnosis [facility] [address] [facility] [id number] [address] [place] [phone] March, [facility] [address] [id number] [address] [place] [id number] Feb, Dental examination Z01.20 [facility] [address] [facility] [id number] [address] [place] [phone] Jan, [facility] [address] [facility] [id number] [address] [place] [phone] Jan, [facility] [address] [id number] [address] [place] [id number] 16 Dec, 2017 [facility] [address] [id number] [address] [place] [phone] Nov, [facility] [address] [id number] [address] [place] [id number] Nov, Encounter for dental exam an d cleaning w/o abnormal findings Z01.20 [facility] [address] [id number] [address] [place] [address] [id number] Nov, Dental examination Z01.20 [facility] [address] [id number] [address] [place] [phone] Oct, [facility] [address] [id number] [address] [place] [phone] Oct, Bipolar disorder, currently in remission, most recent episode unspecified F31.70 ; Moderate intellectual disability F71 and Attention-deficit hyperactivity disorder, predominantly inattentive type F90.0 [facility] [address] [id number] [address] [place] [phone] Sep, [facility] [address] [id number] [address] [place] [phone] Sep, [facility] [address] [id number] [address] [place] [phone] Aug, [facility] [address] [id number] [address] [place] [phone] Aug, Attention-deficit hyperactiv ity disorder, predominantly inattentive type F90.0 ; Moderate intellectual disability 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 and Bipolar disorder F31.9 [facility] [address] [id number] [address] [place] [address] [id number] Jul, Dental examination Z01.20 an d Dental caries K02.9 [facility] [address] [id number] [address] [place] [phone] Jul, [facility] [address] [id number] [address] [place] [phone] Jun, Bipolar disorder F31.9 ; Att ention-deficit hyperactivity disorder, predominantly inattentive type F90.0 and Moderate intellectual disability F71 [facility] [address] [facility] [id number] [address] [place] [phone] Jun, [facility] [address] [facility] [id number] [address] [place] [phone] May, [facility] [address] [facility] [id number] [address] [place] [phone] Apr, [facility] [address] [facility] [id number] [address] [place] [phone] March, Intermittent explosive disor jocelyn F63.81 ; Attention deficit hyperactivity disorder F90.9 and Bipolar disorder F31.9 [facility] [address] [facility] [id number] [address] [place] [phone] Feb, [facility] [address] [facility] [id number] [address] [place] [phone] Jan, [facility] [address] [facility] [id number] [address] [place] [phone] 13 Dec, 2016 Encounter for immunization Z 23 [facility] [address] [facility] [id number] [address] [place] [phone] 13 Dec, 2016 Intermittent explosive disor jocelyn F63.81 ; Attention deficit hyperactivity disorder F90.9 and Bipolar disorder, currently in remission, most recent episode unspecified F31.70 [facility] [address] [facility] [id number] [address] [place] [phone] Nov, [facility] [address] [facility] [id number] [address] [place] [phone] Oct, [facility] [address] [facility] [id number] [address] [place] [phone] Oct, [facility] [address] [id number] [address] [place] [address] [id number] Oct, Dental examination Z01.20 [facility] [address] [id number] [address] [place] [phone] Sep, [facility] [address] [id number] [address] [place] [phone] Sep, [facility] [address] [id number] [address] [place] [phone] Sep, Intermittent explosive disor jocelyn F63.81 ; Bipolar disorder F31.9 and Attention deficit hyperactivity disorder F90.9 [facility] [address] [id number] [address] [place] [phone] Aug, [facility] [address] [id number] [address] [place] [phone] Aug, [facility] [address] [id number] [address] [place] [phone] Aug, [facility] [address] [id number] [address] [place] [phone] Aug, Attention deficit hyperactiv ity disorder F90.9 [facility] [address] [id number] [address] [place] [phone] Jul, [facility] [address] [id number] [address] [place] [phone] Jun, [facility] [address] [id number] [address] [place] [phone] May, [facility] [address] [id number] [address] [place] [phone] Apr, [facility] [address] [id number] [address] [place] [phone] Apr, Bipolar disorder F31.9 ; Att ention deficit hyperactivity disorder F90.9 and Intermittent explosive disorder F63.81 [facility] [address] [id number] [address] [place] [phone] March, [facility] [address] [id number] [address] [place] [phone] Feb, [facility] [address] [id number] [address] [place] [phone] Feb, [facility] [address] [id number] [address] [place] [phone] Jan, [facility] [address] [id number] [address] [place] [phone] Jan, [facility] [address] [id number] [address] [place] [phone] Dec, [facility] [address] [id number] [address] [place] [phone] Nov, [facility] [address] [id number] [address] [place] [phone] Nov, [facility] [address] [facility] [id number] [address] [place] [phone] Nov, Attention deficit hyperactiv ity disorder F90.9 ; Intermittent explosive disorder F63.81 and Bipolar disorder F31.9 [facility] [address] [facility] [id number] [address] [place] [phone] Oct, [facility] [address] [id number] [address] [place] [phone] Oct, [facility] [address] [facility] [id number] [address] [place] [phone] Sep, [facility] [address] [id number] [address] [place] [phone] Aug, [facility] [address] [id number] [address] [place] [phone] Jul, [facility] [address] [id number] [address] [place] [id number] Jul, [facility] [address] [facility] [id number] [address] [place] [phone] Jul, Anxiety, generalized 300.02 ; Bipolar disorder, unspecified 296.80 ; 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.00 ; 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 and Impulse control disorder, unspecified 312.30 [facility] [address] [id number] [address] [place] [phone] Jul, [facility] [address] [id number] [address] [place] [phone] Jun, [facility] [address] [id number] [address] [place] [phone] May, [facility] [address] [id number] [address] [place] [phone] Apr, [facility] [address] [id number] [address] [place] [phone] Apr, Bipolar disorder, unspecifie d 296.80 ; Generalized anxiety disorder 300.02 and 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.00 [facility] [address] [id number] [address] [place] [phone] Apr, [facility] [address] [id number] [address] [place] [phone] March, [facility] [address] [id number] [address] [place] [phone] March, [facility] [address] [id number] [address] [place] [phone] March, [facility] [address] [id number] [address] [place] [phone] March, [facility] [address] [id number] [address] [place] [phone] Feb, [facility] [address] [id number] [address] [place] [phone] Feb, [facility] [address] [id number] [address] [place] [phone] Jan, [facility] [address] [id number] [address] [place] [phone] Jan, [facility] [address] [id number] [address] [place] [address], [place] [address] Jan, [facility] [address] [id number] [address] [place] [address], [place] [address] Jan, [facility] [address] [id number] [address] [place] [address], [place] [address] Jan, [facility] [address] [id number] [address] [place] [address], [place] [address] Dec, [facility] [address] [id number] [address] [place] [address], [place] [address] Dec, [facility] [address] [id number] [address] [place] [address], [place] [address] Nov, [facility] [address] [id number] [address] [place] [address], [place] [address] Nov, [facility] [address] [id number] [address] [place] [address], [place] [address] Nov, [facility] [address] [id number] [address] [place] [address], [place] [address] Oct, [facility] [address] [id number] [address] [place] [address], [place] [address] Oct, [facility] [address] [id number] [address] [place] [address], [place] [address] Oct, [facility] [address] [id number] [address] [place] [phone] Oct, [facility] [address] [id number] [address] [place] [address], [place] [address] Oct, [facility] [address] [id number] [address] [place] [address], [place] [address] Oct, [facility] [address] [id number] [address] [place] [address], [place] [address] Sep, [facility] [address] [id number] [address] [place] [address], [place] [address] 05 Sep, 2014 [facility] [address] [id number] [address] [place] [address], [place] [address] Sep, [facility] [address] [id number] [address] [place] [address], [place] [address] Aug, [facility] [address] [id number] [address] [place] [address], [place] [address] Aug, [facility] [address] [id number] [address] [place] [address], [place] [address] Jul, [facility] [address] [id number] [address] [place] [address], [place] [address] Jul, [facility] [address] [id number] [address] [place] [address], [place] [address] Jun, [facility] [address] [id number] [address] [place] [address], [place] [address] Jun, [facility] [address] [id number] [address] [place] [address], [place] [address] Jun, [facility] [address] [id number] [address] [place] [address], [place] [address] Jun, [facility] [address] [id number] [address] [place] [address], [place] [address] May, [facility] [address] [id number] [address] [place] [address], [place] [address] May, [facility] [address] [id number] [address] [place] [address], [place] [address] May, [facility] [address] [id number] [address] [place] [address], [place] [address] Apr, [facility] [address] [id number] [address] [place] [address], [place] [address] Apr, [facility] [address] [id number] [address] [place] [address], [place] [address] Apr, [facility] [address] [id number] [facility] [place] [address] Apr, [facility] [address] [id number] [facility] [place] [address] March, [facility] [address] [id number] [facility] [place] [address] March, [facility] [address] [id number] [address] [place] [address], [place] [address] March, [facility] [address] [id number] [address] [place] [address], [place] [address] March, [facility] [address] [id number] [address] [place] [address], [place] [address] Feb, [facility] [address] [id number] [address] [place] [address], [place] [address] Feb, [facility] [address] [id number] [address] [place] [address], [place] [address] Jan, [facility] [address] [id number] [address] [place] [address], [place] [address] Jan, [facility] [address] [id number] [address] [place] [address], [place] [address] Jan, [facility] [address] [id number] [address] [place] [address], [place] [address] Jan, [facility] [address] [id number] [address] [place] [address], [place] [address] Jan, [facility] [address] [id number] [address] [place] [address], [place] [address] Jan, [facility] [address] [id number] [address] [place] [address], [place] [address] Jan, [facility] [address] [id number] [address] [place] [address], [place] [address] Jan, [facility] [address] [id number] [address] [place] [address], [place] [address] Dec, [facility] [address] [id number] [address] [place] [address], [place] [address] Dec, [facility] [address] [id number] [address] [place] [address], [place] [address] Dec, [facility] [address] [id number] [address] [place] [address], [place] [address] Dec, [facility] [address] [id number] [address] [place] [address], [place] [address] Nov, [facility] [address] [id number] [address] [place] [address], [place] [address] Nov, [facility] [address] [id number] [address] [place] [address], [place] [address] Oct, [facility] [address] [id number] [address] [place] [address], [place] [address] Oct, [facility] [address] [id number] [address] [place] [address], [place] [address] Oct, [facility] [address] [id number] [address] [place] [address], [place] [address] Oct, [facility] [address] [id number] [address] [place] [address], [place] [address] Sep, [facility] [address] [id number] [address] [place] [address], [place] [address] Sep, [facility] [address] [id number] [address] [place] [address], [place] [address] Sep, [facility] [address] [id number] [address] [place] [address], [place] [address] Sep, [facility] [address] [id number] [address] [place] [address], [place] [address] Aug, [facility] [address] [id number] [address] [place] [address], [place] [address] Aug, [facility] [address] [id number] [address] [place] [address], [place] [address] 07 Aug, 2013 [facility] [address] [id number] [address] [place] [address], [place] [address] Jul, [facility] [address] [id number] [address] [place] [address], [place] [address] Jul, [facility] [address] [id number] [address] [place] [address], [place] [address] Jun, [facility] [address] [id number] [address] [place] [address], [place] [address] Jun, [facility] [address] [id number] [address] [place] [address], [place] [address] May, [facility] [address] [id number] [address] [place] [address], [place] [address] May, [facility] [address] [id number] [address] [place] [address], [place] [address] Apr, [facility] [address] [id number] [address] [place] [address], [place] [address] March, [facility] [address] [id number] [address] [place] [address], [place] [address] March, [facility] [address] [id number] [address] [place] [address], [place] [address] Feb, [facility] [address] [id number] [address] [place] [address], [place] [address] Jan, [facility] [address] [id number] [address] [place] [address], [place] [address] Jan, [facility] [address] [id number] [address] [place] [address], [place] [address] Dec, [facility] [address] [id number] [address] [place] [address], [place] [address] Dec, [facility] [address] [id number] [address] [place] [address], [place] [address] Nov, [facility] [address] [id number] [address] [place] [address], [place] [address] Nov, [facility] [address] [id number] [address] [place] [address], [place] [address] Nov, [facility] [address] [id number] [address] [place] [address], [place] [address] Nov, [facility] [address] [id number] [address] [place] [address], [place] [address] Nov, [facility] [address] [id number] [address] [place] [address], [place] [address] Oct, [facility] [address] [id number] [address] [place] [address], [place] [address] Oct, [facility] [address] [id number] [address] [place] [address], [place] [address] Oct, [facility] [address] [id number] [address] [place] [address], [place] [address] Oct, [facility] [address] [id number] [address] [place] [address], [place] [address] Oct, [facility] [address] [id number] [address] [place] [address], [place] [address] Oct, [facility] [address] [id number] [address] [place] [address], [place] [address] Oct, [facility] [address] [id number] [address] [place] [address], [place] [address] Oct, [facility] [address] [id number] [address] [place] [address], [place] [address] Sep, [facility] [address] [id number] [address] [place] [address], [place] [address] Sep, [facility] [address] [id number] [address] [place] [address], [place] [address] Sep, [facility] [address] [id number] [address] [place] [address], [place] [address] 17 Aug, 2012 [facility] [address] [id number] [address] [place] [address], [place] [address] 17 Aug, 2012 [facility] [address] [id number] [address] [place] [address], [place] [address] 10 Aug, 2012 [facility] [address] [id number] [address] [place] [address], [place] [address] Aug, [facility] [address] [id number] [address] [place] [address], [place] [address] 08 Aug, 2012 [facility] [address] [id number] [address] [place] [address], [place] [address] Jul, [facility] [address] [id number] [address] [place] [address], [place] [address] Jul, [facility] [address] [id number] [address] [place] [address], [place] [address] Jun, [facility] [address] [id number] [address] [place] [address], [place] [address] May, [facility] [address] [id number] [address] [place] [address], [place] [address] May, [facility] [address] [id number] [address] [place] [address], [place] [address] Apr, [facility] [address] [id number] [address] [place] [address], [place] [address] March, [facility] [address] [id number] [address] [place] [address], [place] [address] March, [facility] [address] [id number] [address] [place] [address], [place] [address] March, [facility] [address] [id number] [address] [place] [address], [place] [address] March, [facility] [address] [id number] [address] [place] [address], [place] [address] Feb, [facility] [address] [id number] [address] [place] [address] Feb, [facility] [address] [id number] [address] [place] [address] Jan, [facility] [address] [id number] [address] [place] [address] Dec, [facility] [address] [id number] [address] [place] [phone] Dec, [facility] [address] [id number] [address] [place] [phone] Dec, [facility] [address] [id number] [address] [place] [phone] Nov, [facility] [address] [id number] [address] [place] [phone] Nov, [facility] [address] [id number] [address] [place] [phone] Nov, [facility] [address] [id number] [address] [place] [phone] Oct, [facility] [address] [id number] [address] [place] [phone] Sep, [facility] [address] [id number] [address] [place] [phone] Aug, [facility] [address] [id number] [address] [place] [phone] Aug, [facility] [address] [id number] [address] [place] [phone] May, [facility] [address] [id number] [address] [place] [phone] Sep, [facility] [address] [id number] [address] [place] [phone] Sep, IMMUNIZATIONS No Known Immunizations SOCIAL HISTORY Never Assessed REASON FOR VISIT Medication refill request PLAN OF CARE VITAL SIGNS MEDICATIONS Medication Instructions Dosage Frequency Start Date End Date Duration S rené Vyvanse 70 MG Orally Once a day 1 capsule in the morning 24h Jul, 28 days Active RESULTS No Results PROCEDURES No Known procedures INSTRUCTIONS MEDICATIONS ADMINISTERED No Known Medications MEDICAL (GENERAL) HISTORY Type Description Date Medical History bipolar Medical History adhd Medical History anxiety
--- OUTSIDE RECORDS SUMMARY | 2020-03-18 15:36 | XMS REPORT ---
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
--- OUTSIDE RECORDS SUMMARY | 2020-03-18 15:36 | XMS REPORT ---
Author Jose Cruz Daniels Organization [employer] Address Unknown Phone Unavailable Care Team Providers Care Professional Skater Name Role Phone BRODIE HERNANDEZ CP Unavailable [...] Problem Generalized anxiety disorder 300.02 Active Medications No Known Medications Results No Known Results Summary Purpose [employer] Submission
--- OUTSIDE RECORDS SUMMARY | 2020-03-18 15:37 | XMS REPORT ---
Author Author Jose Cruz HERNANDEZ Organization [employer] Address Unknown Phone Unavailable Care Team Providers Care Scientific Manager Name Role Phone BRODIE HERNANDEZ CP Unavailable [...] Instructions Start Date End Date Status Dosage Seroquel [facility] [address]-90 200 MG Orally Once a day February 05, [address] [facility] [address]-89 10 MG Orally Once a day Nov 13, 2014 1 tablet on the tongue and allow to dissolve Fluvoxamine Maleate [facility] [address]-22 100 MG Orally Once a day J [address] [facility] [address]-82 8 MG Orally Once a day February 05, 2015 1 tablet at bedtime as needed Clonidine HCl [facility] [address]-97 0.1 MG Orally three times a day May 07, [address] [facility] [address]-39 15 MG Orally Once a day February 05, [address] [facility] [address]-48 50 MG Orally 2 t imes per day in the morning and at noon, for ADHD. Dr Moyer to sign for Mazin February 13, 2015 1 capsule Results No Known Results Summary Purpose [employer] Submission
--- OUTSIDE RECORDS SUMMARY | 2020-03-18 15:37 | XMS REPORT ---
Author Author Jose Cruz FELDMAN CARLOS [facility] Address [address] [place] [address] Care Team Providers Care Machine Tracer Name Role Phone FRANCIA CARLOS Unavailable PROBLEMS Type Condition ICD9-CM Code [id number] Code Onset Dates Condition S tatus SNOMED Code Problem Bipolar disorder, unspecified 296.80 Active 27615798 Problem Bipolar disorder F31.9 Active 137 82448 Problem Bipolar I disorder, most recent episode (or current) mixed, moderate 296.62 Active 840256211 Problem Encounter for long-term (current) use of other medications V58.69 Active 036189425 Problem 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 Ac tive 93851868 Problem 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 314.00 Active 31186354 Problem Generalized anxiety disorder 300.02 A ctive 95429244 Problem Attention-deficit hyperactiv ity disorder, predominantly inattentive type F90.0 Active 76632104 Problem Intellectual disability F79 Active 65345835 Problem Attention deficit hyperactivity disorder F90.9 Active 257038944 Problem Intermittent explosive disorder F63.81 Active 18949806 Problem Moderate intellectual disability F71 Active 31551930 Problem Bipolar disorder, currently in remission, most recent episode unspecified F31.70 Active 61602172 ALLERGIES No Information ENCOUNTERS Encounter Location Date Diagnosis [facility] [address] [facility] [id number] [address] [place] [phone] May, [facility] [address] [facility] [id number] [address] [place] [phone] March, [facility] [address] 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 and Attention-deficit hyperactivity disorder, predominantly inattentive type F90.0 [facility] [address] [id number] [address] [place] [phone] Feb, [facility] [address] [id number] [address] [place] [id number] Feb, Dental examination Z01.20 [facility] [address] [id number] [address] [place] [phone] Jan, [facility] [address] [id number] [address] [place] [phone] Jan, [facility] [address] [id number] [address] [place] [phone] Dec, [facility] [address] [id number] [address] [place] [phone] Nov, [facility] [address] [id number] [address] [place] [id number] Nov, Encounter for dental exam an d cleaning w/o abnormal findings Z01.20 [facility] [address] [id number] [address] [place] [address] [phone] Nov, Dental examination Z01.20 [facility] [address] [id number] [address] [place] [phone] Oct, [facility] [address] [id number] [address] [place] [phone] Oct, Bipolar disorder, currently in remission, most recent episode unspecified F31.70 ; Moderate intellectual disability 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 and Attention-deficit hyperactivity disorder, predominantly inattentive type F90.0 [facility] [address] [id number] [address] [place] [phone] Sep, [facility] [address] [id number] [address] [place] [phone] Sep, [facility] [address] [id number] [address] [place] [phone] Aug, [facility] [address] [id number] [address] [place] [phone] Aug, Attention-deficit hyperactiv ity disorder, predominantly inattentive type F90.0 ; Moderate intellectual disability F71 and Bipolar disorder F31.9 [facility] [address] [id number] [address] [place] [id number] Jul, 2017 Dental examination Z01.20 an d Dental caries K02.9 [facility] [address] [facility] [id number] [address] [place] [phone] 05 Jul, 2017 [facility] [address] 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 [id number] [address] [place] [phone] Jun, [facility] [address] [place] [id number] [address] [place] [phone] May, [facility] [address] [facility] [id number] [address] [place] [phone] Apr, [facility] [address] [place] [id number] [address] [place] [phone] March, Intermittent explosive disor jocelyn F63.81 ; Attention deficit hyperactivity disorder F90.9 and Bipolar disorder F31.9 [facility] [address] [place] [id number] [address] [place] [phone] Feb, [facility] [address] [facility] [id number] [address] [place] [phone] Jan, [facility] [address] [facility] [id number] [address] [place] [phone] Dec, Encounter for immunization Z 23 [facility] [address] [facility] [id number] [address] [place] [phone] 13 Dec, 2016 Intermittent explosive disor jocelyn F63.81 ; Attention deficit hyperactivity disorder F90.9 and Bipolar disorder, currently in remission, most recent episode unspecified F31.70 [facility] [address] [place] [id number] [address] [place] [phone] Nov, [facility] [address] [id number] [address] [place] [phone] Oct, [facility] [address] [id number] [address] [place] [phone] Oct, [facility] [address] [id number] [address] [place] [address] [id number] Oct, Dental examination Z01.20 [facility] [address] [id number] [address] [place] [phone] Sep, [facility] [address] [id number] [address] [place] [phone] Sep, [facility] [address] [facility] [id number] [address] [place] [phone] Sep, Intermittent explosive disor jocelyn F63.81 ; Bipolar disorder F31.9 and Attention deficit hyperactivity disorder F90.9 [facility] [address] [id number] [address] [place] [phone] Aug, [facility] [address] [id number] [address] [place] [phone] Aug, [facility] [address] [id number] [address] [place] [phone] Aug, [facility] [address] [id number] [address] [place] [phone] Aug, Attention deficit hyperactiv ity disorder F90.9 [facility] [address] [id number] [address] [place] [phone] Jul, [facility] [address] [id number] [address] [place] [phone] Jun, [facility] [address] [id number] [address] [place] [phone] May, [facility] [address] [id number] [address] [place] [phone] Apr, [facility] [address] [id number] [address] [place] [phone] Apr, Bipolar disorder F31.9 ; Att ention deficit hyperactivity disorder F90.9 and Intermittent explosive disorder F63.81 [facility] [address] [id number] [address] [place] [phone] March, [facility] [address] [id number] [address] [place] [phone] Feb, [facility] [address] [id number] [address] [place] [phone] Feb, [facility] [address] [id number] [address] [place] [phone] Jan, [facility] [address] [id number] [address] [place] [phone] Jan, [facility] [address] [id number] [address] [place] [phone] Dec, [facility] [address] [id number] [address] [place] [phone] Nov, [facility] [address] [id number] [address] [place] [phone] Nov, [facility] [address] [id number] [address] [place] [phone] Nov, Attention deficit hyperactiv ity disorder F90.9 ; Intermittent explosive disorder F63.81 and Bipolar disorder F31.9 [facility] [address] [id number] [address] [place] [phone] Oct, [facility] [address] [id number] [address] [place] [phone] Oct, [facility] [address] [id number] [address] [place] [phone] Sep, [facility] [address] [id number] [address] [place] [phone] Aug, [facility] [address] [id number] [address] [place] [phone] Jul, [facility] [address] [id number] [address] [place] [phone] Jul, [facility] [address] [id number] [address] [place] [phone] Jul, Anxiety, generalized 300.02 ; Bipolar disorder, unspecified 296.80 ; 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.00 ; 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 and Impulse control disorder, unspecified 312.30 [facility] [address] [id number] [address] [place] [phone] Jul, [facility] [address] [id number] [address] [place] [phone] Jun, [facility] [address] [id number] [address] [place] [phone] May, [facility] [address] [id number] [address] [place] [phone] Apr, [facility] [address] [id number] [address] [place] [phone] Apr, Bipolar disorder, unspecifie d 296.80 ; Generalized anxiety disorder 300.02 and 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.00 [facility] [address] [id number] [address] [place] [phone] Apr, [facility] [address] [id number] [address] [place] [phone] March, [facility] [address] [id number] [address] [place] [phone] March, [facility] [address] [id number] [address] [place] [phone] March, [facility] [address] [id number] [address] [place] [phone] March, [facility] [address] [id number] [address] [place] [address], [place] [id number] 14 Feb, 2015 [facility] [address] [id number] [address] [place] [address], [place] [address] Feb, [facility] [address] [id number] [address] [place] [address], [place] [address] Jan, [facility] [address] [id number] [address] [place] [address], [place] [address] Jan, [facility] [address] [id number] [address] [place] [address], [place] [address] Jan, [facility] [address] [id number] [address] [place] [address], [place] [address] Jan, [facility] [address] [id number] [address] [place] [address], [place] [address] Jan, [facility] [address] [id number] [address] [place] [address], [place] [address] Dec, [facility] [address] [id number] [address] [place] [address], [place] [address] Dec, [facility] [address] [id number] [address] [place] [address], [place] [address] Nov, [facility] [address] [id number] [address] [place] [address], [place] [address] Nov, [facility] [address] [id number] [address] [place] [address], [place] [address] Nov, [facility] [address] [id number] [address] [place] [address], [place] [address] Oct, [facility] [address] [id number] [address] [place] [address], [place] [address] Oct, [facility] [address] [id number] [address] [place] [address], [place] [address] Oct, [facility] [address] [id number] [address] [place] [address], [place] [address] Oct, [facility] [address] [id number] [address] [place] [address], [place] [address] Oct, [facility] [address] [id number] [address] [place] [address], [place] [address] Oct, [facility] [address] [id number] [address] [place] [address], [place] [address] Sep, [facility] [address] [id number] [address] [place] [address], [place] [address] Sep, [facility] [address] [id number] [address] [place] [address], [place] [address] Sep, [facility] [address] [id number] [address] [place] [address], [place] [address] Aug, [facility] [address] [id number] [address] [place] [address], [place] [address] Aug, [facility] [address] [id number] [address] [place] [address], [place] [address] Jul, [facility] [address] [id number] [address] [place] [address], [place] [address] Jul, [facility] [address] [id number] [address] [place] [address], [place] [address] Jun, [facility] [address] [id number] [address] [place] [address], [place] [address] Jun, [facility] [address] [id number] [address] [place] [address], [place] [address] Jun, [facility] [address] [id number] [address] [place] [address], [place] [address] Jun, [facility] [address] [id number] [address] [place] [address], [place] [address] May, [facility] [address] [id number] [address] [place] [address], [place] [address] May, [facility] [address] [id number] [facility] [place] [address] May, [facility] [address] [id number] [address] [place] [address], [place] [address] Apr, [facility] [address] [id number] [address] [place] [address], [place] [address] Apr, [facility] [address] [id number] [address] [place] [address], [place] [address] Apr, [facility] [address] [id number] [address] [place] [address], [place] [address] Apr, [facility] [address] [id number] [address] [place] [address], [place] [address] March, [facility] [address] [id number] [address] [place] [address], [place] [address] March, [facility] [address] [id number] [address] [place] [address], [place] [address] March, [facility] [address] [id number] [address] [place] [address], [place] [address] March, [facility] [address] [id number] [address] [place] [address], [place] [address] Feb, [facility] [address] [id number] [address] [place] [address], [place] [address] Feb, [facility] [address] [id number] [address] [place] [address], [place] [address] Jan, [facility] [address] [id number] [address] [place] [address], [place] [address] Jan, [facility] [address] [id number] [address] [place] [address], [place] [address] Jan, [facility] [address] [id number] [address] [place] [address], [place] [address] Jan, [facility] [address] [id number] [address] [place] [address], [place] [address] Jan, [facility] [address] [id number] [address] [place] [address], [place] [address] Jan, [facility] [address] [id number] [address] [place] [address], [place] [address] Jan, [facility] [address] [id number] [address] [place] [address], [place] [address] Jan, [facility] [address] [id number] [address] [place] [address], [place] [address] Dec, [facility] [address] [id number] [address] [place] [address], [place] [address] Dec, [facility] [address] [id number] [address] [place] [address], [place] [address] Dec, [facility] [address] [id number] [address] [place] [address], [place] [address] Dec, [facility] [address] [id number] [address] [place] [address], [place] [address] Nov, [facility] [address] [id number] [address] [place] [address], [place] [address] Nov, [facility] [address] [id number] [address] [place] [address], [place] [address] Oct, [facility] [address] [id number] [address] [place] [address], [place] [address] Oct, [facility] [address] [id number] [address] [place] [address], [place] [address] Oct, [facility] [address] [id number] [address] [place] [address], [place] [address] Oct, [facility] [address] [id number] [address] [place] [address], [place] [address] Sep, [facility] [address] [id number] [address] [place] [address], [place] [address] Sep, [facility] [address] [id number] [address] [place] [address], [place] [address] 07 Sep, 2013 [facility] [address] [id number] [address] [place] [address], [place] [address] 07 Sep, 2013 [facility] [address] [id number] [address] [place] [address], [place] [address] Aug, [facility] [address] [id number] [address] [place] [address], [place] [address] Aug, [facility] [address] [id number] [address] [place] [address], [place] [address] Aug, [facility] [address] [id number] [address] [place] [address], [place] [address] Jul, [facility] [address] [id number] [address] [place] [address], [place] [address] Jul, [facility] [address] [id number] [address] [place] [address], [place] [address] Jun, [facility] [address] [id number] [address] [place] [address], [place] [address] Jun, [facility] [address] [id number] [address] [place] [address], [place] [address] May, [facility] [address] [id number] [address] [place] [address], [place] [address] May, [facility] [address] [id number] [address] [place] [address], [place] [address] Apr, [facility] [address] [id number] [address] [place] [address], [place] [address] March, [facility] [address] [id number] [address] [place] [address], [place] [address] March, [facility] [address] [id number] [address] [place] [address], [place] [address] Feb, [facility] [address] [id number] [address] [place] [address], [place] [address] Jan, [facility] [address] [id number] [address] [place] [address], [place] [address] Jan, [facility] [address] [id number] [address] [place] [address], [place] [address] Dec, [facility] [address] [id number] [address] [place] [address], [place] [address] Dec, [facility] [address] [id number] [address] [place] [address], [place] [address] Nov, [facility] [address] [id number] [address] [place] [address], [place] [address] Nov, [facility] [address] [id number] [address] [place] [address], [place] [address] Nov, [facility] [address] [id number] [address] [place] [address], [place] [address] Nov, [facility] [address] [id number] [address] [place] [address], [place] [address] Nov, [facility] [address] [id number] [address] [place] [address], [place] [address] Oct, [facility] [address] [id number] [address] [place] [address], [place] [address] Oct, [facility] [address] [id number] [address] [place] [address], [place] [address] Oct, [facility] [address] [id number] [address] [place] [address], [place] [address] Oct, [facility] [address] [id number] [address] [place] [address], [place] [address] Oct, [facility] [address] [id number] [address] [place] [address], [place] [address] Oct, [facility] [address] [id number] [address] [place] [address], [place] [address] Oct, [facility] [address] [id number] [address] [place] [address], [place] [address] 04 Oct, 2012 [facility] [address] [id number] [address] [place] [address], [place] [address] Sep, [facility] [address] [id number] [address] [place] [address], [place] [address] Sep, [facility] [address] [id number] [address] [place] [address], [place] [address] Sep, [facility] [address] [id number] [address] [place] [address], [place] [address] Aug, [facility] [address] [id number] [address] [place] [address], [place] [address] Aug, [facility] [address] [id number] [address] [place] [address], [place] [address] Aug, [facility] [address] [id number] [address] [place] [address], [place] [address] Aug, [facility] [address] [id number] [address] [place] [address], [place] [address] Aug, [facility] [address] [id number] [address] [place] [address], [place] [address] Jul, [facility] [address] [id number] [address] [place] [address], [place] [address] Jul, [facility] [address] [id number] [address] [place] [address], [place] [address] Jun, [facility] [address] [id number] [address] [place] [address], [place] [address] May, [facility] [address] [id number] [address] [place] [address], [place] [address] May, [facility] [address] [id number] [address] [place] [address], [place] [address] Apr, [facility] [address] [id number] [address] [place] [address], [place] [address] March, [facility] [address] [id number] [address] [place] [address], [place] [address] March, [facility] [address] [id number] [address] [place] [address], [place] [address] March, [facility] [address] [id number] [address] [place] [address], [place] [address] March, [facility] [address] [id number] [address] [place] [address], [place] [address] Feb, [facility] [address] [id number] [address] [place] [address], [place] [address] Feb, [facility] [address] [id number] [address] [place] [address], [place] [id number] Jan, [facility] [address] [id number] [address] [place] [address], [place] [id number] Dec, [facility] [address] [id number] [address] [place] [address], [place] [id number] Dec, [facility] [address] [id number] [address] [place] [address], [place] [id number] Dec, [facility] [address] [id number] [address] [place] [address], [place] [id number] Nov, [facility] [address] [id number] [address] [place] [address], [place] [id number] Nov, [facility] [address] [id number] [address] [place] [address], [place] [id number] Nov, [facility] [address] [id number] [address] [place] [address], [place] [id number] Oct, [facility] [address] [id number] [address] [place] [address], [place] [id number] Sep, [facility] [address] [id number] [address] [place] [address], [place] [id number] Aug, [facility] [address] [id number] [address] [place] [id number] Aug, [facility] [address] [facility] [id number] [address] [place] [phone] May, [facility] [address] [facility] [id number] [address] [place] [phone] Sep, [facility] [address] [facility] [id number] [address] [place] [id number] Sep, IMMUNIZATIONS No Known Immunizations SOCIAL HISTORY Never Assessed REASON FOR VISIT vyvanse 11/21/2017 PLAN OF CARE VITAL SIGNS MEDICATIONS Medication [...]
--- OUTSIDE RECORDS SUMMARY | 2020-03-18 15:37 | XMS REPORT ---
Author Author Jose Cruz Bonilla Organization [facility] Address Unknown Care Team Providers Care Gambling Supervisor Name Role Phone BRODIE Bonilla Unavailable PROBLEMS Type Condition ICD9-CM Code [id number] Code Onset Dates Condition S tatus SNOMED Code Problem Bipolar disorder, unspecified 296.80 Active 10714218 Problem Bipolar disorder F31.9 Active 137 55582 Problem Bipolar I disorder, most recent episode (or current) mixed, moderate 296.62 Active 825602009 Problem Encounter for long-term (current) use of other medications V58.69 Active 125927930 Problem 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 Ac tive 66824103 Problem 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 314.00 Active 77782963 Problem Generalized anxiety disorder 300.02 A ctive 73890278 Problem Attention-deficit hyperactiv ity disorder, predominantly inattentive type F90.0 Active 92747313 Problem Intellectual disability F79 Active 79242792 Problem Attention deficit hyperactivity disorder F90.9 Active 947545762 Problem Intermittent explosive disorder F63.81 Active 15993787 Problem Moderate intellectual disability F71 Active 92586191 Problem Bipolar disorder, currently in remission, most recent episode unspecified F31.70 Active 95028233 ALLERGIES No Information SOCIAL HISTORY Never Assessed PLAN OF CARE Activity Details Follow Up 3 Months Reason: VITAL SIGNS Height 74.5 in 2017-01-10 Weight 261 lbs 2017-01-10 Heart Rate 78 bpm 2017-01-10 Respiratory Rate 20 2017-01-10 BMI 33.06 kg/m2 2017-01-10 Blood pressure systolic 110 mmHg 2017-01-10 Blood pressure diastolic 70 mmHg 2017-01-10 MEDICATIONS Medication Instructions Dosage Frequency Start Date End Date Duration S tatus Zyprexa 15 MG Orally Once a day 2 tablets 24h Jan, 3 0 days Active Seroquel 200 MG Orally Once a day 1 tablet 24h Jan, 30 days Active Rozerem 8 MG Orally Once a day 1 tablet at bedtime as needed 24h Jan, 30 days Active Zyprexa Zydis 10 Orally Once a day 1 tablet on the tongue and al low to dissolve 24h 30 days Active Fluvoxamine Maleate 100 MG Orally Once a day 3 tablets 24h 10 2014 30 days Active Clonidine HCl 0.1 MG Orally three times a day 1 tablet 8h 10 J 2014 30 days Active Docusate Sodium 100 Orally Once a day 1 capsule as needed 24h 30 Active Fish Oil by Oral route Jun, Acti ve Zyprexa Zydis 10 MG Orally Once a day 1 tablet on the tong ue and allow to dissolve 24h Oct, 30 days Active Adderall 20 mg Orally Once a day 1 tablet at 4 pm 24h Dec, 30 days Active Vyvanse 70 MG Orally Once a day 1 capsule in the morning 24h Dec, 30 days Active RESULTS No Results PROCEDURES No Known procedures IMMUNIZATIONS No Known Immunizations MEDICAL (GENERAL) HISTORY Type Description Date Medical History bipolar Medical History adhd Medical History anxiety
--- OUTSIDE RECORDS SUMMARY | 2020-03-18 15:37 | XMS REPORT ---
Author Author Jose Cruz HERNANDEZ Organization [facility] Address [address] [place] [address] Care Team Providers Care Procedural Nurse Name Role Phone DEIRDRE HERNANDEZ Unavailable PROBLEMS Type Condition ICD9-CM Code [id number] Code Onset Dates Condition S tatus SNOMED Code Problem Bipolar disorder, unspecified 296.80 Active 52067452 Problem Bipolar disorder F31.9 Active 137 46813 Problem Bipolar I disorder, most recent episode (or current) mixed, moderate 296.62 Active 615590605 Problem Encounter for long-term (current) use of other medications V58.69 Active 740407160 Problem 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 Ac tive 10938298 Problem 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 314.00 Active 56575523 Problem Generalized anxiety disorder 300.02 A ctive 39894913 Problem Attention-deficit hyperactiv ity disorder, predominantly inattentive type F90.0 Active 82681341 Problem Intellectual disability F79 Active 16508884 Problem Attention deficit hyperactivity disorder F90.9 Active 008723289 Problem Intermittent explosive disorder F63.81 Active 17851457 Problem Moderate intellectual disability F71 Active 36448998 Problem Bipolar disorder, currently in remission, most recent episode unspecified F31.70 Active [id number] ALLERGIES No Known Allergies ENCOUNTERS Encounter Location Date Diagnosis [facility] [address] [facility] [id number] [address] [place] [phone] March, [facility] [address] [facility] [id number] [address] [place] [phone] Feb, [facility] [address] [facility] [id number] [address] [place] [address] [id number] Feb, Dental examination Z01.20 [facility] [address] [facility] [id number] [address] [place] [phone] Jan, [facility] [address] [id number] [address] [place] [phone] Jan, [facility] [address] [id number] [address] [place] [id number] Dec, [facility] [address] [id number] [address] [place] [phone] Nov, [facility] [address] [id number] [address] [place] [address] [id number] Nov, Dental examination Z01.20 [facility] [address] [id number] [place] [address] [id number] Nov, Encounter for dental exam an d cleaning w/o abnormal findings Z01.20 [facility] [address] [id number] [address] [place] [phone] Oct, [facility] [address] [id number] [address] [place] [phone] Oct, Bipolar disorder, currently in remission, most recent episode unspecified F31.70 ; Moderate intellectual disability F71 and Attention-deficit hyperactivity disorder, predominantly inattentive type F90.0 [facility] [address] [id number] [address] [place] [id number] Sep, [facility] [address] [id number] [address] [place] [phone] Sep, [facility] [address] [id number] [address] [place] [phone] Aug, [facility] [address] [id number] [address] [place] [phone] Aug, Attention-deficit hyperactiv ity disorder, predominantly inattentive type F90.0 ; Moderate intellectual disability F71 and Bipolar disorder F31.9 [facility] [address] [id number] [address] [place] [address] [id number] 11 Jul, 2017 Dental examination Z01.20 an d Dental caries K02.9 [facility] [address] [id number] [address] [place] [phone] Jul, [facility] [address] [facility] [id number] [address] [place] [phone] Jun, Bipolar disorder F31.9 ; Att ention-deficit hyperactivity disorder, predominantly inattentive type F90.0 and Moderate intellectual disability F71 [facility] [address] [facility] [id number] [address] [place] [phone] Jun, [facility] [address] [facility] [id number] [address] [place] [phone] May, [facility] [address] [facility] [id number] [address] [place] [id number] Apr, [facility] [address] [id number] [address] [place] [id number] March, Intermittent explosive disor jocelyn F63.81 ; Attention deficit hyperactivity disorder F90.9 and Bipolar disorder F31.9 [facility] [address] [id number] [address] [place] [id number] Feb, [facility] [address] [id number] [address] [place] [phone] Jan, [facility] [address] [id number] [address] [place] [id number] 13 Dec, 2016 Intermittent explosive disor jocelyn F63.81 ; Attention deficit hyperactivity disorder F90.9 and Bipolar disorder, currently in remission, most recent episode unspecified F31.70 [facility] [address] [facility] [id number] [address] [place] [phone] 13 Dec, 2016 Encounter for immunization Z 23 [facility] [address] [facility] [id number] [address] [place] [phone] Nov, [facility] [address] [facility] [id number] [address] [place] [phone] Oct, [facility] [address] [id number] [address] [place] [phone] Oct, [facility] [address] [facility] [id number] [address] [place] [address] [id number] Oct, Dental examination Z01.20 [facility] [address] [facility] [id number] [address] [place] [phone] Sep, [facility] [address] [facility] [id number] [address] [place] [phone] Sep, [facility] [address] [facility] [id number] [address] [place] [phone] Sep, Intermittent explosive disor jocelyn F63.81 ; Bipolar disorder F31.9 and Attention deficit hyperactivity disorder F90.9 [facility] [address] [facility] [id number] [address] [place] [phone] Aug, [facility] [address] [facility] [id number] [address] [place] [phone] Aug, [facility] [address] [facility] [id number] [address] [place] [phone] Aug, [facility] [address] [facility] [id number] [address] [place] [phone] Aug, Attention deficit hyperactiv ity disorder F90.9 [facility] [address] [facility] [id number] [address] [place] [id number] Jul, [facility] [address] [facility] [id number] [address] [place] [phone] Jun, [facility] [address] [facility] [id number] [address] [place] [phone] May, [facility] [address] [facility] [id number] [address] [place] [phone] Apr, [facility] [address] [facility] [id number] [address] [place] [phone] Apr, Bipolar disorder F31.9 ; Att ention deficit hyperactivity disorder F90.9 and Intermittent explosive disorder F63.81 [facility] [address] [facility] [id number] [address] [place] [phone] March, [facility] [address] [id number] [address] [place] [phone] Feb, [facility] [address] [id number] [address] [place] [phone] Feb, [facility] [address] [id number] [address] [place] [phone] Jan, [facility] [address] [id number] [address] [place] [phone] Jan, [facility] [address] [id number] [address] [place] [phone] Dec, [facility] [address] [id number] [address] [place] [phone] Nov, [facility] [address] [facility] [id number] [address] [place] [phone] Nov, [facility] [address] [facility] [id number] [address] [place] [phone] Nov, Attention deficit hyperactiv ity disorder F90.9 ; Intermittent explosive disorder F63.81 and Bipolar disorder F31.9 [facility] [address] [id number] [address] [place] [phone] Oct, [facility] [address] [facility] [id number] [address] [place] [phone] Oct, [facility] [address] [id number] [address] [place] [phone] Sep, [facility] [address] [id number] [address] [place] [phone] Aug, [facility] [address] [id number] [address] [place] [phone] Jul, [facility] [address] [id number] [address] [place] [id number] Jul, [facility] [address] [id number] [address] [place] [phone] Jul, Anxiety, generalized 300.02 ; Bipolar disorder, unspecified 296.80 ; 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.00 ; 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 and Impulse control disorder, unspecified 312.30 [facility] [address] [id number] [address] [place] [phone] Jul, [facility] [address] [id number] [address] [place] [phone] Jun, [facility] [address] [id number] [address] [place] [phone] May, [facility] [address] [id number] [address] [place] [address] Apr, [facility] [address] [id number] [address] [place] [phone] Apr, Bipolar disorder, unspecifie d 296.80 ; Generalized anxiety disorder 300.02 and 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.00 [facility] [address] [id number] [address] [place] [id number] Apr, [facility] [address] [id number] [address] [place] [phone] March, [facility] [address] [id number] [address] [place] [phone] March, [facility] [address] [id number] [address] [place] [phone] March, [facility] [address] [id number] [address] [place] [phone] March, [facility] [address] [id number] [address] [place] [phone] Feb, [facility] [address] [id number] [address] [place] [phone] Feb, [facility] [address] [id number] [address] [place] [phone] Jan, [facility] [address] [id number] [facility] [place] [address] Jan, [facility] [address] [id number] [address] [place] [address], [place] [address] Jan, [facility] [address] [id number] [address] [place] [address], [place] [address] Jan, [facility] [address] [id number] [address] [place] [address], [place] [address] Jan, [facility] [address] [id number] [address] [place] [address], [place] [address] Dec, [facility] [address] [id number] [address] [place] [address], [place] [address] Dec, [facility] [address] [id number] [address] [place] [address], [place] [address] Nov, [facility] [address] [id number] [address] [place] [address], [place] [address] Nov, [facility] [address] [id number] [address] [place] [address], [place] [address] Nov, [facility] [address] [id number] [address] [place] [address], [place] [address] Oct, [facility] [address] [id number] [address] [place] [address], [place] [address] Oct, [facility] [address] [id number] [address] [place] [address], [place] [address] Oct, [facility] [address] [id number] [address] [place] [address], [place] [address] Oct, [facility] [address] [id number] [address] [place] [address], [place] [address] Oct, [facility] [address] [id number] [address] [place] [address], [place] [address] Oct, [facility] [address] [id number] [address] [place] [address], [place] [address] 05 Sep, 2014 [facility] [address] [id number] [address] [place] [address], [place] [address] 05 Sep, 2014 [facility] [address] [id number] [address] [place] [address], [place] [address] Sep, [facility] [address] [id number] [address] [place] [address], [place] [address] Aug, [facility] [address] [id number] [address] [place] [address], [place] [address] Aug, [facility] [address] [id number] [address] [place] [address], [place] [address] Jul, [facility] [address] [id number] [address] [place] [address], [place] [address] Jul, [facility] [address] [id number] [address] [place] [address], [place] [address] Jun, [facility] [address] [id number] [address] [place] [address], [place] [address] Jun, [facility] [address] [id number] [address] [place] [address], [place] [address] Jun, [facility] [address] [id number] [address] [place] [address], [place] [address] Jun, [facility] [address] [id number] [address] [place] [address], [place] [address] May, [facility] [address] [id number] [address] [place] [address], [place] [address] May, [facility] [address] [id number] [address] [place] [address], [place] [address] May, [facility] [address] [id number] [address] [place] [address], [place] [address] Apr, [facility] [address] [id number] [address] [place] [address], [place] [address] Apr, [facility] [address] [id number] [facility] [place] [address] Apr, [facility] [address] [id number] [facility] [place] [address] Apr, [facility] [address] [id number] [facility] [place] [address] March, [facility] [address] [id number] [address] [place] [address], [place] [address] March, [facility] [address] [id number] [address] [place] [address], [place] [address] March, [facility] [address] [id number] [address] [place] [address], [place] [address] March, [facility] [address] [id number] [address] [place] [address], [place] [address] Feb, [facility] [address] [id number] [address] [place] [address], [place] [address] Feb, [facility] [address] [id number] [address] [place] [address], [place] [address] Jan, [facility] [address] [id number] [address] [place] [address], [place] [address] Jan, [facility] [address] [id number] [address] [place] [address], [place] [address] Jan, [facility] [address] [id number] [address] [place] [address], [place] [address] Jan, [facility] [address] [id number] [address] [place] [address], [place] [address] Jan, [facility] [address] [id number] [address] [place] [address], [place] [address] Jan, [facility] [address] [id number] [address] [place] [address], [place] [address] Jan, [facility] [address] [id number] [address] [place] [address], [place] [address] Jan, [facility] [address] [id number] [address] [place] [address], [place] [address] Dec, [facility] [address] [id number] [address] [place] [address], [place] [address] Dec, [facility] [address] [id number] [address] [place] [address], [place] [address] Dec, [facility] [address] [id number] [address] [place] [address], [place] [address] Dec, [facility] [address] [id number] [address] [place] [address], [place] [address] Nov, [facility] [address] [id number] [address] [place] [address], [place] [address] Nov, [facility] [address] [id number] [address] [place] [address], [place] [address] Oct, [facility] [address] [id number] [address] [place] [address], [place] [address] Oct, [facility] [address] [id number] [address] [place] [address], [place] [address] Oct, [facility] [address] [id number] [address] [place] [address], [place] [address] Oct, [facility] [address] [id number] [address] [place] [address], [place] [address] Sep, [facility] [address] [id number] [address] [place] [address] Sep, [facility] [address] [id number] [address] [place] [address], [place] [address] Sep, [facility] [address] [id number] [address] [place] [address], [place] [address] 07 Sep, 2013 [facility] [address] [id number] [address] [place] [address], [place] [address] Aug, [facility] [address] [id number] [address] [place] [address], [place] [address] 10 Aug, 2013 [facility] [address] [id number] [address] [place] [address], [place] [address] 07 Aug, 2013 [facility] [address] [id number] [address] [place] [address], [place] [address] Jul, [facility] [address] [id number] [address] [place] [address], [place] [address] Jul, [facility] [address] [id number] [address] [place] [address], [place] [address] Jun, [facility] [address] [id number] [address] [place] [address], [place] [address] Jun, [facility] [address] [id number] [address] [place] [address], [place] [address] May, [facility] [address] [id number] [address] [place] [address], [place] [address] May, [facility] [address] [id number] [address] [place] [address], [place] [address] Apr, [facility] [address] [id number] [address] [place] [address], [place] [address] March, [facility] [address] [id number] [address] [place] [address], [place] [address] March, [facility] [address] [id number] [address] [place] [address], [place] [address] Feb, [facility] [address] [id number] [address] [place] [address], [place] [address] Jan, [facility] [address] [id number] [address] [place] [address], [place] [address] Jan, [facility] [address] [id number] [address] [place] [address], [place] [address] Dec, [facility] [address] [id number] [address] [place], [place] [address] [address] Dec, [facility] [address] [id number] [address] [place] [address], [place] [address] Nov, [facility] [address] [id number] [address] [place] [address], [place] [address] Nov, [facility] [address] [id number] [address] [place] [address], [place] [address] Nov, [facility] [address] [id number] [address] [place] [address], [place] [address] Nov, [facility] [address] [id number] [address] [place] [address], [place] [address] Nov, [facility] [address] [id number] [address] [place] [address], [place] [address] Oct, [facility] [address] [id number] [address] [place] [address], [place] [address] Oct, [facility] [address] [id number] [address] [place] [address], [place] [address] Oct, [facility] [address] [id number] [address] [place] [address], [place] [address] Oct, [facility] [address] [id number] [address] [place] [address], [place] [address] Oct, [facility] [address] [id number] [address] [place] [address], [place] [address] Oct, [facility] [address] [id number] [address] [place] [address], [place] [id number] 05 Oct, 2012 [facility] [address] [id number] [address] [place] [address], [place] [address] Oct, [facility] [address] [id number] [address] [place] [address], [place] [address] Sep, [facility] [address] [id number] [address] [place] [address], [place] [address] Sep, [facility] [address] [id number] [address] [place] [address], [place] [address] Sep, [facility] [address] [id number] [address] [place] [address], [place] [address] Aug, [facility] [address] [id number] [address] [place] [address], [place] [address] Aug, [facility] [address] [id number] [address] [place] [address], [place] [address] Aug, [facility] [address] [id number] [address] [place] [address], [place] [address] Aug, [facility] [address] [id number] [address] [place] [address], [place] [id number] Aug, [facility] [address] [id number] [address] [place] [address], [place] [address] Jul, [facility] [address] [id number] [address] [place] [address], [place] [address] Jul, [facility] [address] [id number] [address] [place] [address], [place] [address] Jun, [facility] [address] [id number] [address] [place] [address], [place] [address] May, [facility] [address] [id number] [address] [place] [address], [place] [address] May, [facility] [address] [id number] [address] [place] [address], [place] [address] Apr, [facility] [address] [id number] [address] [place] [address], [place] [address] March, [facility] [address] [id number] [address] [place] [address], [place] [address] March, [facility] [address] [id number] [address] [place] [address], [place] [address] March, [facility] [address] [id number] [address] [place] [address], [place] [address] March, [facility] [address] [id number] [address] [place] [address], [place] [address] Feb, [facility] [address] [id number] [address] [place] [address], [place] [address] Feb, [facility] [address] [id number] [address] [place] [address], [place] [address] Jan, [facility] [address] [id number] [address] [place] [address], [place] [address] Dec, [facility] [address] [id number] [address] [place] [address], [place] [address] Dec, [facility] [address] [id number] [address] [place] [address], [place] [address] Dec, [facility] [address] [id number] [address] [place] [address], [place] [address] Nov, [facility] [address] [id number] [address] [place] [address], [place] [address] Nov, [facility] [address] [id number] [address] [place] [address], [place] [address] Nov, [facility] [address] [id number] [address] [place] [address], [place] [address] Oct, [facility] [address] [id number] [address] [place] [address], [place] [address] Sep, [facility] [address] [id number] [address] [place] [address], [place] [address] Aug, [facility] [address] [id number] [address] [place] [address], [place] [address] Aug, [facility] [address] [id number] [address] [place] [address], [place] [address] May, [facility] [address] [id number] [address] [place] [address], [place] [address] Sep, [facility] [address] [id number] [address] [place] [address] Sep, IMMUNIZATIONS No Known Immunizations SOCIAL HISTORY Never Assessed REASON FOR VISIT PLAN OF CARE Activity Details Follow Up prn Reason:hygiene VITAL SIGNS Blood pressure systolic 111 mmHg 2017-08-08 Blood pressure diastolic 82 mmHg 2017-08-08 MEDICATIONS Medication Instructions Dosage Frequency Start Date End Date Duration S rené Clonidine HCl 0.1 MG Orally one tablet in the mor chloe, 2 tablets at 1:30 pm and 1 tablet at bedtime 1 tablet March, Act yong Fluvoxamine Maleate 100 MG Orally Once a day 3 tablets 24h Apr, 015 Active Seroquel 200 TAKE ONE TABLET BY MOUTH DAILY Active Ibuprofen 800 MG Orally every 6 hrs as needed for pain 1 tablet with food or milk Jul, Jul, 4 days Active Seroquel 200 MG Orally Once a day 1 tablet 24h Jan, 30 days Active Amoxicillin 500 MG Orally every 8 hrs 1 capsule 8h Jul, Jul, 7 days Active Zyprexa 15 MG Orally Once a day 2 tablets 24h Jan, Active Fish Oil by Oral route Jun, Acti ve Vyvanse 70 MG Orally Once a day 1 capsule in the morning 24h Jul, 28 days Active Rozerem 8 MG Orally Once a day 1 tablet at bedtime as needed 24h Jan, Active RESULTS No Results PROCEDURES Procedure Date Ordered Result Body Site LTD ORAL EVALUATION - PROBLEM FOCUS Aug 08, 2017 INTRAORL-PERIAPICAL 1 FILM 22347 Aug 08, 2017 SURG REMOVAL ERUPTED TOOTH Aug 08, 2017 BITEWING - SINGLE FILM Aug 08, 2017 INSTRUCTIONS MEDICATIONS ADMINISTERED No Known Medications MEDICAL (GENERAL) HISTORY Type Description Date Medical History bipolar Medical History adhd Medical History anxiety
--- OUTSIDE RECORDS SUMMARY | 2020-03-18 15:37 | XMS REPORT ---
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 Active 11413875 Problem Bipolar disorder, unspecified 296.80 Active 09291151 Problem Generalized anxiety disorder 300.02 A ctive 31830182 Problem 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 Ac tive 64316026 Problem Bipolar disorder, currently in remission, most recent episode unspecified F31.70 Active 96936987 Problem Attention deficit hyperactivity disorder F90.9 Active 231382854 Problem Bipolar I disorder, most recent episode (or current) mixed, moderate 296.62 Active 927505620 Problem Encounter for long-term (current) use of other medications V58.69 Active 925145328 Problem Intermittent explosive disorder F63.81 Active 99121842 Problem Bipolar disorder F31.9 Active 137 21269 ALLERGIES Unknown Allergies SOCIAL HISTORY No smoking Hx information available PLAN OF CARE VITAL SIGNS MEDICATIONS Medication Instructions Dosage Frequency Start Date End Date Duration S tatus Vyvanse 70 MG Orally Once a day 1 capsule in the morning 24h Oct, 28 days Active Adderall 20 mg Orally Once a day 1 tablet at 4 pm 24h Oct, 28 days Active RESULTS No Results PROCEDURES No Known procedures IMMUNIZATIONS No Known Immunizations
--- OUTSIDE RECORDS SUMMARY | 2020-03-18 15:37 | XMS REPORT ---
Author Author Jose Cruz HERNANDEZ [facility] [employer] Address Unknown Phone Unavailable Care Team Providers Care Toilet Products Molder Name Role Phone BRODIE HERNANDEZ CP Unavailable Allergies No Known Allergies Problems Problem Type Condition Code Onset Dates Condition Statu s Assessment Intermittent explosive disorder F63.81 Active Assessment Bipolar disorder F31.9 Active Problem Encounter for long-term (current) use of other medicat ions V58.69 Active Problem Bipolar disorder, unspecified 296.80 Active Problem Bipolar I disorder, most recent episode (or current) mixed, moderate 296.62 Active Problem 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 Active Assessment Attention deficit hyperactivity disorder F90.9 Active Problem Generalized anxiety disorder 300.02 Active Problem 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 Tammie to sign for aMzin February 13, 2015 1 capsule Zyprexa Zydis [facility] [address]-67 10 MG Orally Once a day Nov 13, 2014 1 tablet on the tongue and allow to dissolve Zyprexa [facility] [address]-99 15 MG Orally Once a day February 05, 2015 2 tablets Fluvoxamine Maleate [facility] [address]-00 100 MG Orally Once a day J 2014 3 tablets Seroquel [facility] [address]-70 200 MG Orally Once a day February 05, 2015 1 tablet Rozerem [facility] [address]-92 8 MG Orally Once a day February 05, 2015 1 tablet at bedtime as needed Clonidine HCl [facility] [address]-63 0.1 MG Orally three times a day May 07, 2015 1 tablet Docusate Sodium [facility] 65965297605 100 Orally Once a day 1 capsule as needed Fish Oil [facility] [address]-50 Jul 25, 2013 by O ral route Procedures Procedure Coding System Code Date Office Visit, Est Pt., Level 3 CPT-4 22176 Dec 03, 2015 Vital Signs Date/Time: Dec 03, 2015 Cardiac Monitoring Heart Rate 86 bpm Weight 262.7 lbs Height 74.5 in BMI 33.27 Index Blood Pressure Diastolic 74 mmHg Blood Pressure Systolic 118 mmHg Results No Known Results Summary Purpose e[employer] Submission
--- OUTSIDE RECORDS SUMMARY | 2020-03-18 15:37 | XMS REPORT ---
Author Author Jose Cruz Bonilla Organization [facility] Address Unknown Care Team Providers Care Applied Exercise Physiologist Name Role Phone BRODIE Bonilla Unavailable PROBLEMS Type Condition ICD9-CM Code [id number] Code Onset Dates Condition S tatus SNOMED Code Problem Bipolar disorder, unspecified 296.80 Active 07313631 Problem Bipolar disorder F31.9 Active 137 36010 Problem Bipolar I disorder, most recent episode (or current) mixed, moderate 296.62 Active 081903634 Problem Encounter for long-term (current) use of other medications V58.69 Active 398006380 Problem 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 Ac tive 38048322 Problem 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 314.00 Active 00839831 Problem Generalized anxiety disorder 300.02 A ctive 19362000 Problem Attention-deficit hyperactiv ity disorder, predominantly inattentive type F90.0 Active 65272735 Problem Intellectual disability F79 Active 35887838 Problem Attention deficit hyperactivity disorder F90.9 Active 019805398 Problem Intermittent explosive disorder F63.81 Active 94750263 Problem Moderate intellectual disability F71 Active 11178432 Problem Bipolar disorder, currently in remission, most recent episode unspecified F31.70 Active 64039534 ALLERGIES No Known Allergies SOCIAL HISTORY Never Assessed PLAN OF CARE Activity Details Follow Up 3 Months Reason: VITAL SIGNS Height 74.5 in 2017-04-11 Weight 261.0 lbs 2017-04-11 Heart Rate 84 bpm 2017-04-11 Respiratory Rate 20 2017-04-11 BMI 33.06 kg/m2 2017-04-11 Blood pressure systolic 116 mmHg 2017-04-11 Blood pressure diastolic 78 mmHg 2017-04-11 MEDICATIONS Medication Instructions Dosage Frequency Start Date End Date Duration S tatus Clonidine HCl 0.1 MG Orally one tablet in the mor chloe, 2 tablets at 1:30 pm and 1 tablet at bedtime 1 tablet March, 30 day(s) Act yong Seroquel 200 TAKE ONE TABLET BY MOUTH DAILY 30 Active Zyprexa Zydis 10 Orally Once a day 1 tablet on the tongue and al low to dissolve 24h 30 days Active Fish Oil by Oral route Jun, Acti ve Rozerem 8 MG Orally Once a day 1 tablet at bedtime as needed 24h Jan, 30 days Active Adderall 20 mg Orally Once a day 1 tablet at 4 pm 24h March, 30 days Active Fluvoxamine Maleate 100 MG Orally Once a day 3 tablets 24h 2014 30 days Active Zyprexa Zydis 10 MG Orally Once a day 1 tablet on the tong ue and allow to dissolve 24h Oct, 30 days Active Seroquel 200 MG Orally Once a day 1 tablet 24h Jan, 30 days Active Vyvanse 70 MG Orally Once a day 1 capsule in the morning 24h March, 30 days Active Docusate Sodium 100 Orally Once a day 1 capsule as needed 24h 30 Active Zyprexa 15 MG Orally Once a day 2 tablets 24h Jan, 3 0 days Active RESULTS No Results PROCEDURES No Known procedures IMMUNIZATIONS No Known Immunizations MEDICAL (GENERAL) HISTORY Type Description Date Medical History bipolar Medical History adhd Medical History anxiety
--- OUTSIDE RECORDS SUMMARY | 2020-03-18 15:37 | XMS REPORT ---
Author Author Jose Cruz [facility] Address [address] [place] [address] Phone Unavailable Care Team Providers Care Multimedia Educational Specialist Name Role Phone AYDIN [place] Unavailable Unavailable PROBLEMS Type Condition ICD9-CM Code ABP70-VO Code Onset Dates Condition S tatus SNOMED Code Problem Bipolar disorder, unspecified 296.80 Active 20720780 Problem Bipolar disorder F31.9 Active 137 36411 Problem Bipolar I disorder, most recent episode (or current) mixed, moderate 296.62 Active 871022856 Problem Encounter for long-term (current) use of other medications V58.69 Active 184308493 Problem 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 Ac tive 50499694 Problem 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 314.00 Active 38528907 Problem Generalized anxiety disorder 300.02 A ctive 21862521 Problem Attention-deficit hyperactiv ity disorder, predominantly inattentive type F90.0 Active 49811933 Problem Intellectual disability F79 Active 50969351 Problem Attention deficit hyperactivity disorder F90.9 Active 206108203 Problem Intermittent explosive disorder F63.81 Active 34309033 Problem Moderate intellectual disability F71 Active 30119880 Problem Bipolar disorder, currently in remission, most recent episode unspecified F31.70 Active 58568065 ALLERGIES No Known Allergies ENCOUNTERS Encounter Location Date Diagnosis [facility] [place] [address] [facility] [id number] [address] [place] [phone] May, [facility] [place] [address] [facility] [id number] [address] [place] [phone] Apr, [facility] [place] [address] [facility] [id number] [address] [place] [phone] Apr, [facility] [place] [address] [facility] [id number] [address] [place] [phone] March, [facility] [place] [address] [facility] [id number] [address] [place] [phone] March, Bipolar disorder, currently in remission, most recent episode unspecified F31.70 ; Moderate intellectual disability F71 and Attention-deficit hyperactivity disorder, predominantly inattentive type F90.0 [facility] [place] [address] [id number] [address] [place] [phone] Feb, [facility] [address] [id number] [address] [place] [id number] Feb, Dental examination Z01.20 [facility] [place] [address] [id number] [address] [place] [phone] Jan, [facility] [place] [address] [id number] [address] [place] [phone] Jan, [facility] [place] [address] [id number] [address] [place] [phone] Dec, [facility] [place] [address] [id number] [address] [place] [phone] Nov, [facility] [address] [id number] [address] [place] [address] [id number] Nov, Encounter for dental exam an d cleaning w/o abnormal findings Z01.20 [facility] [address] [id number] [address] [place] [address] [id number] Nov, Dental examination Z01.20 [facility] [place] [address] [id number] [address] [place] [phone] Oct, [facility] [place] [address] [id number] [address] [place] [phone] Oct, Bipolar disorder, currently in remission, most recent episode unspecified F31.70 ; Moderate intellectual disability F71 and Attention-deficit hyperactivity disorder, predominantly inattentive type F90.0 [facility] [place] [address] [id number] [address] [place] [phone] Sep, [facility] [place] [address] [id number] [address] [place] [phone] Sep, [facility] [place] [address] [id number] [address] [place] [phone] Aug, [facility] [place] [address] [facility] [id number] [address] [place] [phone] Aug, Attention-deficit hyperactiv ity disorder, predominantly inattentive type F90.0 ; Moderate intellectual disability F71 and Bipolar disorder F31.9 [facility] [address] [id number] [address] [place] [id number] 11 Jul, 2017 Dental examination Z01.20 an d Dental caries K02.9 [facility] [place] [address] [id number] [address] [place] [phone] Jul, 2017 [facility] [place] [address] [facility] [id number] [address] [place] [phone] Jun, Bipolar disorder F31.9 ; Att ention-deficit hyperactivity disorder, predominantly inattentive type F90.0 and Moderate intellectual disability F71 [facility] [place] [address] [facility] [id number] [address] [place] [phone] Jun, [facility] [place] [address] [facility] [id number] [address] [place] [phone] May, [facility] [place] [address] [facility] [id number] [address] [place] [phone] Apr, [facility] [place] [address] [facility] [id number] [address] [place] [id number] March, Intermittent explosive disor jocelyn F63.81 ; Attention deficit hyperactivity disorder F90.9 and Bipolar disorder F31.9 [facility] [place] [address] [facility] [id number] [address] [place] [phone] Feb, [facility] [place] [address] [facility] [id number] [address] [place] [phone] Jan, [facility] [place] [address] [facility] [id number] [address] [place] [phone] 13 Dec, 2016 Encounter for immunization Z 23 [facility] [place] [address] [facility] [id number] [address] [place] [phone] Dec, Intermittent explosive disor jocelyn F63.81 ; Attention deficit hyperactivity disorder F90.9 and Bipolar disorder, currently in remission, most recent episode unspecified F31.70 [facility] [place] [address] [id number] [address] [place] [phone] Nov, [facility] [place] [address] [facility] [id number] [address] [place] [phone] Oct, [facility] [place] [address] [id number] [address] [place] [phone] Oct, [facility] [address] [id number] [address] [place] [id number] Oct, Dental examination Z01.20 [facility] [place] [address] [facility] [id number] [address] [place] [phone] Sep, [facility] [place] [address] [facility] [id number] [address] [place] [phone] Sep, [facility] [place] [address] [facility] [id number] [address] [place] [phone] Sep, Intermittent explosive disor jocelyn F63.81 ; Bipolar disorder F31.9 and Attention deficit hyperactivity disorder F90.9 [facility] [place] [address] [facility] [id number] [address] [place] [phone] Aug, [facility] [place] [address] [id number] [address] [place] [phone] Aug, [facility] [place] [address] [id number] [address] [place] [phone] Aug, [facility] [place] [address] [facility] [id number] [address] [place] [phone] Aug, Attention deficit hyperactiv ity disorder F90.9 [facility] [place] [address] [id number] [address] [place] [phone] Jul, [facility] [place] [address] [facility] [id number] [address] [place] [phone] Jun, [facility] [place] [address] [id number] [address] [place] [phone] May, [facility] [place] [address] [id number] [address] [place] [phone] Apr, [facility] [place] [address] [id number] [address] [place] [phone] Apr, Bipolar disorder F31.9 ; Att ention deficit hyperactivity disorder F90.9 and Intermittent explosive disorder F63.81 [facility] [place] [address] [id number] [address] [place] [address], [place] [address] March, [facility] [place] [address] [id number] [address] [place] [phone] Feb, [facility] [place] [address] [id number] [address] [place] [phone] Feb, [facility] [place] [address] [id number] [address] [place] [phone] Jan, [facility] [place] [address] [id number] [address] [place] [phone] Jan, [facility] [place] [address] [id number] [address] [place] [phone] Dec, [facility] [place] [address] [id number] [address] [place] [phone] Nov, [facility] [place] [address] [id number] [address] [place] [phone] Nov, [facility] [place] [address] [id number] [address] [place] [phone] Nov, Attention deficit hyperactiv ity disorder F90.9 ; Intermittent explosive disorder F63.81 and Bipolar disorder F31.9 [facility] [place] [address] [id number] [address] [place] [phone] Oct, [facility] [place] [address] [id number] [address] [place] [phone] Oct, [facility] [place] [address] [id number] [address] [place] [phone] Sep, [facility] [place] [address] [facility] [id number] [address] [place] [phone] Aug, [facility] [place] [address] [id number] [address] [place] [phone] Jul, [facility] [place] [address] [id number] [address] [place] [phone] Jul, [facility] [place] [address] [id number] [address] [place] [phone] Jul, Anxiety, generalized 300.02 ; Bipolar disorder, unspecified 296.80 ; 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.00 ; 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 and Impulse control disorder, unspecified 312.30 [facility] [place] [address] [facility] [id number] [address] [place] [id number] Jul, [facility] [place] [address] [id number] [address] [place] [id number] Jun, [facility] [place] [address] [id number] [address] [place] [phone] May, [facility] [place] [address] [facility] [id number] [address] [place] [phone] Apr, [facility] [place] [address] [id number] [address] [place] [phone] Apr, Bipolar disorder, unspecifie d 296.80 ; Generalized anxiety disorder 300.02 and 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.00 [facility] [place] [address] [id number] [address] [place] [phone] Apr, [facility] [place] [address] [facility] [id number] [address] [place] [phone] March, [facility] [place] [address] [facility] [id number] [address] [place] [phone] March, [facility] [address] [id number] [address] [place] [address], [place] [address] March, [facility] [address] [id number] [address] [place] [address], [place] [address] March, [facility] [address] [id number] [address] [place] [address], [place] [address] Feb, [facility] [address] [id number] [address] [place] [address], [place] [address] Feb, [facility] [address] [id number] [address] [place] [address], [place] [address] Jan, [facility] [address] [id number] [address] [place] [address], [place] [address] Jan, [facility] [address] [id number] [address] [place] [address], [place] [address] Jan, [facility] [address] [id number] [address] [place] [address], [place] [address] Jan, [facility] [address] [id number] [address] [place] [address], [place] [address] Jan, [facility] [address] [id number] [address] [place] [address], [place] [address] Dec, [facility] [address] [id number] [address] [place] [address], [place] [address] Dec, [facility] [address] [id number] [address] [place] [address], [place] [address] Nov, [facility] [address] [id number] [address] [place] [address], [place] [address] Nov, [facility] [address] [id number] [address] [place] [address], [place] [address] Nov, [facility] [address] [id number] [address] [place] [address], [place] [address] Oct, [facility] [address] [id number] [address] [place] [address], [place] [address] Oct, [facility] [address] [id number] [address] [place] [address], [place] [address] Oct, [facility] [address] [id number] [address] [place] [address], [place] [address] Oct, [facility] [address] [id number] [address] [place] [address], [place] [address] Oct, [facility] [address] [id number] [address] [place] [address], [place] [address] Oct, [facility] [address] [id number] [address] [place] [address], [place] [address] Sep, [facility] [address] [id number] [address] [place] [address], [place] [address] Sep, [facility] [address] [id number] [address] [place] [address], [place] [address] Sep, [facility] [address] [id number] [address] [place] [address], [place] [address] Aug, [facility] [address] [id number] [address] [place] [address], [place] [address] Aug, [facility] [address] [id number] [address] [place] [address], [place] [address] Jul, [facility] [address] [id number] [address] [place] [address], [place] [address] Jul, [facility] [address] [id number] [address] [place] [address], [place] [address] Jun, [facility] [address] [id number] [address] [place] [address], [place] [address] Jun, [facility] [address] [id number] [address] [place] [address], [place] [address] Jun, [facility] [address] [id number] [address] [place] [address], [place] [address] Jun, [facility] [address] [id number] [address] [place] [address], [place] [address] 17 May, 2014 [facility] [address] [id number] [facility] [place] [address] May, [facility] [address] [id number] [address] [place] [address], [place] [address] May, [facility] [address] [id number] [address] [place] [address], [place] [address] Apr, [facility] [address] [id number] [address] [place] [address], [place] [address] Apr, [facility] [address] [id number] [address] [place] [address], [place] [address] Apr, [facility] [address] [id number] [address] [place] [address], [place] [address] Apr, [facility] [address] [id number] [address] [place] [address], [place] [address] March, [facility] [address] [id number] [address] [place] [address], [place] [address] March, [facility] [address] [id number] [address] [place] [address], [place] [address] March, [facility] [address] [id number] [address] [place] [address], [place] [address] March, [facility] [address] [id number] [address] [place] [address], [place] [address] Feb, [facility] [address] [id number] [address] [place] [address], [place] [address] Feb, [facility] [address] [id number] [address] [place] [address], [place] [address] Jan, [facility] [address] [id number] [address] [place] [address], [place] [address] Jan, [facility] [address] [id number] [address] [place] [address], [place] [address] Jan, [facility] [address] [id number] [address] [place] [address], [place] [address] Jan, [facility] [address] [id number] [address] [place] [address], [place] [address] Jan, [facility] [address] [id number] [address] [place] [address], [place] [address] Jan, [facility] [address] [id number] [address] [place] [address], [place] [address] Jan, [facility] [address] [id number] [address] [place] [address], [place] [address] Jan, [facility] [address] [id number] [address] [place] [address], [place] [address] Dec, [facility] [address] [id number] [address] [place] [address], [place] [address] Dec, [facility] [address] [id number] [address] [place] [address], [place] [address] Dec, [facility] [address] [id number] [address] [place] [address], [place] [address] Dec, [facility] [address] [id number] [address] [place] [address], [place] [address] Nov, [facility] [address] [id number] [address] [place] [address], [place] [address] Nov, [facility] [address] [id number] [address] [place] [address], [place] [address] Oct, [facility] [address] [id number] [address] [place] [address], [place] [address] Oct, [facility] [address] [id number] [address] [place] [address], [place] [address] Oct, [facility] [address] [id number] [address] [place] [address], [place] [address] Oct, [facility] [address] [id number] [address] [place] [address], [place] [address] Sep, [facility] [address] [id number] [address] [place] [address], [place] [address] Sep, [facility] [address] [id number] [address] [place] [address], [place] [address] Sep, [facility] [address] [id number] [address] [place] [address], [place] [address] Sep, [facility] [address] [id number] [address] [place] [address], [place] [address] Aug, [facility] [address] [id number] [address] [place] [address], [place] [address] Aug, [facility] [address] [id number] [address] [place] [address], [place] [address] Aug, [facility] [address] [id number] [address] [place] [address], [place] [address] Jul, [facility] [address] [id number] [address] [place] [address], [place] [address] Jul, [facility] [address] [id number] [address] [place] [address], [place] [address] Jun, [facility] [address] [id number] [address] [place] [address], [place] [address] Jun, [facility] [address] [id number] [address] [place] [address], [place] [address] May, [facility] [address] [id number] [address] [place] [address], [place] [address] May, [facility] [address] [id number] [address] [place] [address], [place] [address] Apr, [facility] [address] [id number] [address] [place] [address], [place] [address] March, [facility] [address] [id number] [address] [place] [address], [place] [address] March, [facility] [address] [id number] [address] [place] [address], [place] [address] Feb, [facility] [address] [id number] [address] [place] [address], [place] [address] Jan, [facility] [address] [id number] [address] [place] [address], [place] [address] Jan, [facility] [address] [id number] [address] [place] [address], [place] [address] Dec, [facility] [address] [id number] [address] [place] [address], [place] [address] Dec, [facility] [address] [id number] [address] [place] [address], [place] [address] Nov, [facility] [address] [id number] [address] [place] [address], [place] [address] Nov, [facility] [address] [id number] [address] [place] [address], [place] [address] Nov, [facility] [address] [id number] [address] [place] [address], [place] [address] Nov, [facility] [address] [id number] [address] [place] [address], [place] [address] Nov, [facility] [address] [id number] [address] [place] [address], [place] [address] Oct, [facility] [address] [id number] [address] [place] [address], [place] [address] 31 Oct, 2012 [facility] [address] [id number] [address] [place] [address], [place] [address] Oct, [facility] [address] [id number] [address] [place] [address], [place] [address] Oct, [facility] [address] [id number] [address] [place] [address], [place] [address] Oct, [facility] [address] [id number] [address] [place] [address], [place] [address] Oct, [facility] [address] [id number] [address] [place] [address], [place] [address] Oct, [facility] [address] [id number] [address] [place] [address], [place] [address] Oct, [facility] [address] [id number] [address] [place] [address], [place] [address] Sep, [facility] [address] [id number] [address] [place] [address], [place] [address] Sep, [facility] [address] [id number] [address] [place] [address], [place] [address] Sep, [facility] [address] [id number] [address] [place] [address], [place] [address] Aug, [facility] [address] [id number] [address] [place] [address], [place] [address] Aug, [facility] [address] [id number] [address] [place] [address], [place] [address] Aug, [facility] [address] [id number] [address] [place] [address], [place] [address] Aug, [facility] [address] [id number] [address] [place] [address], [place] [address] Aug, [facility] [address] [id number] [address] [place] [address], [place] [address] Jul, [facility] [address] [id number] [address] [place] [address], [place] [address] 18 Jul, 2012 [facility] [address] [id number] [address] [place] [address], [place] [address] Jun, [facility] [address] [id number] [address] [place] [address], [place] [address] May, [facility] [address] [id number] [address] [place] [address], [place] [address] May, [facility] [address] [id number] [address] [place] [address], [place] [address] Apr, [facility] [address] [id number] [address] [place] [address], [place] [address] March, [facility] [address] [id number] [address] [place] [address], [place] [address] March, [facility] [address] [id number] [address] [place] [address], [place] [address] March, [facility] [address] [id number] [address] [place] [address], [place] [address] March, [facility] [address] [id number] [address] [place] [address], [place] [address] Feb, [facility] [address] [id number] [address] [place] [address], [place] [address] Feb, [facility] [address] [id number] [address] [place] [address], [place] [address] Jan, [facility] [address] [id number] [address] [place] [address], [place] [address] Dec, [facility] [address] [id number] [address] [place] [address], [place] [address] Dec, [facility] [address] [id number] [address] [place] [address], [place] [address] Dec, [facility] [address] [id number] [address] [place] [address], [place] [address] Nov, [facility] [address] [id number] [address] [place] [address], [place] [address] Nov, [facility] [address] [id number] [address] [place] [address], [place] [address] Nov, [facility] [address] [id number] [address] [place] [address], [place] [address] 14 Oct, 2011 [facility] [address] [id number] [address] [place] [address], [place] [address] Sep, [facility] [place] [address] [facility] [id number] [address] [place] [address] Aug, [facility] [place] [address] [facility] [id number] [address] [place] [address] Aug, [facility] [place] [address] [facility] [id number] [address] [place] [address] May, [facility] [place] [address] [facility] [id number] [address] [place] [address] Sep, [facility] [place] [address] [facility] [id number] [address] [place] [address] Sep, IMMUNIZATIONS No Known Immunizations SOCIAL HISTORY Never Assessed REASON FOR VISIT ADULT OUTREACH CLASS [facility] PLAN OF CARE Activity Details Follow Up 3 Months Reason:ON SITE RECA LL VITAL SIGNS MEDICATIONS Medication Instructions Dosage Frequency Start Date End Date Duration S tatus Fluvoxamine Maleate 100 MG Orally once at night 3 tablets Apr, 30 days Unknown Rozerem 8 MG Orally at bedtime as needed 1 tablet Jan, 30 days Unknown Clonidine HCl 0.1 MG Orally one tablet in the mor chloe, 2 tablets at 2pm and 1 tablet at bedtime 1 tablet March, 30 days Unkno wn Seroquel 200 MG Orally at night 1 tablet Jan, 30 days Unknown Fish Oil by Oral route Jun, Unkn own Docusate Sodium 100 Orally Once a day 1 capsule as needed 24h 30 Unknown Zyprexa 10 MG Orally at bedtime 1 tablet 30 days Unknown Vyvanse 70 MG Orally Once a day 1 capsule in the morning 24h Oct, 28 days Unknown RESULTS No Results PROCEDURES Procedure Date Ordered Result Body Site PROPHYLAXIS - ADULT Nov 30, 2017 TOPICAL FLUORIDE VARNISH Nov 30, 2017 INSTRUCTIONS MEDICATIONS ADMINISTERED No Known Medications MEDICAL (GENERAL) HISTORY Type Description Date Medical History bipolar Medical History adhd Medical History anxiety
--- OUTSIDE RECORDS SUMMARY | 2020-03-18 15:38 | XMS REPORT ---
Author Jose Cruz Daniels [facility] e[employer] Address Unknown Phone Unavailable Care Team Providers Care Process Control Tech Name Role Phone BRODIE HERNANDEZ CP Unavailable Allergies No Known Allergies Problems Problem Type Condition Code Onset Dates Condition Statu s Assessment Attention deficit hyperactivity disorder F90.9 Active Problem Bipolar I disorder, most recent [...] Start Date End Date Status Dosage Seroquel [facility] [address]-03 200 MG Orally Once a day February 05, 2015 1 tablet Zyprexa Zydis [facility] [address]-71 10 MG Orally Once a day Nov 13, 2014 1 tablet on the tongue and allow to dissolve Docusate Sodium [facility] 67526255004 100 Orally Once a day 1 capsule as needed Clonidine HCl [facility] [address]-25 0.1 MG Orally three times a day May 07, 2015 1 tablet Fish Oil [facility] [address]-95 Jul 25, 2013 by O ral route Fluvoxamine Maleate [facility] [address]-05 100 MG Orally Once a day J 2014 3 tablets Seroquel [facility] 82903952190 200 Orally Once a day 1 tablet Clonidine HCl [facility] 19339912971 0.1 Orally three times a day 1 tablet Zyprexa Zydis [facility] 22079018034 10 Orally Once a day 1 tablet on the tongue and allow to dissolve Fluvoxamine Maleate [facility] 94777934769 100 Orally Once a day 3 tablets Zyprexa [facility] 86391381377 15 Orally Once a day 2 tablets Vyvanse [facility] [address]-88 50 mg TAKE ONE C APSULE BY MOUTH IN THE MORNING AND ONE CAPSULE AT NOON FOR ADHD Zyprexa [facility] [address]-24 15 MG Orally Once a day February 05, 2015 2 tablets Rozerem [facility] [address]-79 8 MG Orally Once a day February 05, 2015 1 tablet at bedtime as needed Rozerem [facility] 27436519850 8 Orally Once a day 1 tablet at bedtime as needed Results No Known Results Summary Purpose [employer] Submission
--- OUTSIDE RECORDS SUMMARY | 2020-03-18 15:38 | XMS REPORT ---
Author Author Jose Cruz HERNANDEZ Organization [facility] Address Unknown Care Team Providers Care Instrument Lens Grinder Name Role Phone BRODIE HERNANDEZ Unavailable PROBLEMS Type Condition ICD9-CM Code [id number] Code Onset Dates Condition S tatus SNOMED Code Problem 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 Ac tive 58357076 Problem Generalized anxiety disorder 300.02 A ctive 80393390 Problem 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 314.00 Active 55627897 Problem Attention deficit hyperactivity disorder F90.9 Active 244350196 Problem Intermittent explosive disorder F63.81 Active 94430539 Problem Encounter for long-term (current) use of other medications V58.69 Active 348530840 Problem Bipolar disorder, unspecified 296.80 Active 80669134 Problem Bipolar disorder F31.9 Active 137 41922 Problem Bipolar I disorder, most recent episode (or current) mixed, moderate 296.62 Active 229080115 ALLERGIES Unknown Allergies SOCIAL HISTORY No smoking Hx information available PLAN OF CARE VITAL SIGNS MEDICATIONS Medication Instructions Dosage Frequency Start Date End Date Duration S tatus Vyvanse 70 MG Orally Once a day 1 capsule in the morning 24h Oct, 30 days Active Adderall 20 MG Orally Once a day 1 tablet at 4 pm 24h Oct, 30 days Active RESULTS No Results PROCEDURES No Known procedures IMMUNIZATIONS No Known Immunizations
--- OUTSIDE RECORDS SUMMARY | 2020-03-18 15:38 | XMS REPORT ---
Author Author Jose Cruz HERNANDEZ Organization [employer] Address Unknown Phone Unavailable Care Team Providers Care Field Contractor Name Role Phone BRODIE HERNANDEZ CP Unavailable Allergies No Known Allergies Problems Problem Type Condition ICD-9 Code Onset Dates Condition Statu s Problem [...] Start Date End Date Status Dosage Vyvanse [facility] [address]-12 50 MG Orally 2 t imes per day in the morning and at noon, for ADHD February 13, 2015 1 capsule Results No Known Results Summary Purpose eClinicalWorks Submission
--- OUTSIDE RECORDS SUMMARY | 2020-03-18 15:38 | XMS REPORT ---
Author Jose Cruz Daniels Organization [employer] Address Unknown Phone Unavailable Care Team Providers Care Valuation Consultant Name Role Phone BRODIE HERNANDEZ CP Unavailable [...] Start Date End Date Status Dosage Vyvanse [facility] [address]-01 50 mg TAKE ONE C APSULE BY MOUTH IN THE MORNING AND ONE CAPSULE AT NOON FOR ADHD Results No Known Results Summary Purpose [employer]Clinical[employer] Submission
--- OUTSIDE RECORDS SUMMARY | 2020-03-18 15:38 | XMS REPORT ---
Author Author Jose Cruz [facility] Address [address] [place] [address] Care Team Providers Care Reference And Instruction Librarian Name Role Phone FRANCIA CARLOS Unavailable PROBLEMS Type Condition ICD9-CM Code [id number] Code Onset Dates Condition S tatus SNOMED Code Problem Bipolar disorder, unspecified 296.80 Active 49758531 Problem Bipolar disorder F31.9 Active 137 50987 Problem Bipolar I disorder, most recent episode (or current) mixed, moderate 296.62 Active 079459910 Problem Encounter for long-term (current) use of other medications V58.69 Active 018288304 Problem 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 Ac tive 86238166 Problem 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 314.00 Active 76235678 Problem Generalized anxiety disorder 300.02 A ctive 10173882 Problem Attention-deficit hyperactiv ity disorder, predominantly inattentive type F90.0 Active 95916071 Problem Intellectual disability F79 Active 81304066 Problem Attention deficit hyperactivity disorder F90.9 Active 752821117 Problem Intermittent explosive disorder F63.81 Active 96691395 Problem Moderate intellectual disability F71 Active 34095438 Problem Bipolar disorder, currently in remission, most recent episode unspecified F31.70 Active 98492364 ALLERGIES No Information ENCOUNTERS Encounter Location Date Diagnosis [facility] [address] [facility] [id number] [address] [place] [phone] May, [facility] [address] [facility] [id number] [address] [place] [phone] Apr, Bipolar disorder, unspecifie d F31.9 [facility] [address] [facility] [id number] [address] [place] [phone] Apr, [facility] [address] [facility] [id number] [address] [place] [phone] Apr, [facility] [address] [place] [id number] [address] [place] [phone] Apr, [facility] [address] [id number] [address] [place] [phone] March, [facility] [address] [id number] [address] [place] [id number] March, Bipolar disorder, currently in remission, most recent episode unspecified F31.70 ; Moderate intellectual disability F71 and Attention-deficit hyperactivity disorder, predominantly inattentive type F90.0 [facility] [address] [id number] [address] [place] [id number] Feb, [facility] [address] [id number] [place] [id number] Feb, Dental examination Z01.20 [facility] [address] [id number] [address] [place] [phone] Jan, [facility] [address] [id number] [address] [place] [phone] Jan, [facility] [address] [id number] [address] [place] [phone] Dec, [facility] [address] [id number] [address] [place] [phone] Nov, [facility] [address] [id number] [address] [place] [address] [id number] Nov, Encounter for dental exam an d cleaning w/o abnormal findings Z01.20 [facility] [address] [id number] [address] [place] [address] [id number] Nov, Dental examination Z01.20 [facility] [address] [id number] [address] [place] [phone] Oct, [facility] [address] [id number] [address] [place] [phone] Oct, Bipolar disorder, currently in remission, most recent episode unspecified F31.70 ; Moderate intellectual disability F71 and Attention-deficit hyperactivity disorder, predominantly inattentive type F90.0 [facility] [address] [id number] [address] [place] [phone] Sep, [facility] [address] [id number] [address] [place] [phone] Sep, [facility] [address] [id number] [address] [place] [phone] Aug, [facility] [address] [id number] [address] [place] [phone] Aug, Attention-deficit hyperactiv ity disorder, predominantly inattentive type F90.0 ; Moderate intellectual disability F71 and Bipolar disorder F31.9 [facility] [address] [id number] [address] [place] [id number] Jul, Dental examination Z01.20 an d Dental caries K02.9 [facility] [address] [id number] [address] [place] [phone] Jul, [facility] [address] [id number] [address] [place] [phone] Jun, Bipolar disorder F31.9 ; Att ention-deficit hyperactivity disorder, predominantly inattentive type F90.0 and Moderate intellectual disability F71 [facility] [address] [id number] [address] [place] [phone] Jun, [facility] [address] [id number] [address] [place] [phone] May, [facility] [address] [id number] [address] [place] [phone] Apr, [facility] [address] [id number] [address] [place] [phone] March, Intermittent explosive disor jocelyn F63.81 ; Attention deficit hyperactivity disorder F90.9 and Bipolar disorder F31.9 [facility] [address] [id number] [address] [place] [phone] Feb, [facility] [address] [id number] [address] [place] [phone] Jan, [facility] [address] [id number] [address] [place] [phone] Dec, Encounter for immunization Z 23 [facility] [address] [id number] [address] [place] [id number] 13 Dec, 2016 Intermittent explosive disor jocelyn F63.81 ; Attention deficit hyperactivity disorder F90.9 and Bipolar disorder, currently in remission, most recent episode unspecified F31.70 [facility] [address] [id number] [address] [place] [phone] Nov, [facility] [address] [id number] [address] [place] [phone] Oct, [facility] [address] [facility] [id number] [address] [place] [id number] Oct, [facility] [address] [id number] [address] [place] [address] [id number] Oct, Dental examination Z01.20 [facility] [address] [id number] [address] [place] [phone] Sep, [facility] [address] [facility] [id number] [address] [place] [phone] Sep, [facility] [address] [id number] [address] [place] [phone] Sep, Intermittent explosive disor jocelyn F63.81 ; Bipolar disorder F31.9 and Attention deficit hyperactivity disorder F90.9 [facility] [address] [id number] [address] [place] [phone] Aug, [facility] [address] [id number] [address] [place] [phone] Aug, [facility] [address] [id number] [address] [place] [phone] Aug, [facility] [address] [id number] [address] [place] [phone] Aug, Attention deficit hyperactiv ity disorder F90.9 [facility] [address] [id number] [address] [place] [phone] Jul, [facility] [address] [id number] [address] [place] [phone] Jun, [facility] [address] [id number] [address] [place] [phone] May, [facility] [address] [id number] [address] [place] [phone] Apr, [facility] [address] [id number] [address] [place] [phone] Apr, Bipolar disorder F31.9 ; Att ention deficit hyperactivity disorder F90.9 and Intermittent explosive disorder F63.81 [facility] [address] [id number] [address] [place] [phone] March, [facility] [address] [id number] [address] [place] [phone] Feb, [facility] [address] [id number] [address] [place] [phone] Feb, [facility] [address] [id number] [address] [place] [phone] Jan, [facility] [address] [id number] [address] [place] [phone] Jan, [facility] [address] [id number] [address] [place] [phone] Dec, [facility] [address] [id number] [address] [place] [phone] Nov, [facility] [address] [id number] [address] [place] [phone] Nov, [facility] [address] [id number] [address] [place] [phone] Nov, Attention deficit hyperactiv ity disorder F90.9 ; Intermittent explosive disorder F63.81 and Bipolar disorder F31.9 [facility] [address] [facility] [id number] [address] [place] [phone] Oct, [facility] [address] [facility] [id number] [address] [place] [phone] Oct, [facility] [address] [facility] [id number] [address] [place] [phone] Sep, [facility] [address] [facility] [id number] [address] [place] [phone] Aug, [facility] [address] [place] [id number] [address] [place] [phone] Jul, [facility] [address] [id number] [address] [place] [phone] Jul, [facility] [address] [id number] [address] [place] [phone] Jul, Anxiety, generalized 300.02 ; Bipolar disorder, unspecified 296.80 ; 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.00 ; 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 and Impulse control disorder, unspecified 312.30 [facility] [address] [id number] [address] [place] [phone] Jul, [facility] [address] [id number] [address] [place] [phone] Jun, [facility] [address] [facility] [id number] [address] [place] [phone] May, [facility] [address] [facility] [id number] [address] [place] [phone] Apr, [facility] [address] [id number] [address] [place] [id number] Apr, Bipolar disorder, unspecifie d 296.80 ; Generalized anxiety disorder 300.02 and 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.00 [facility] [address] [place] [id number] [address] [place] [address] [place] [address] Apr, [facility] [address] [id number] [address] [place] [address], [place] [address] March, [facility] [address] [id number] [address] [place] [address], [place] [address] March, [facility] [address] [id number] [address] [place] [address], [place] [address] March, [facility] [address] [id number] [address] [place] [address], [place] [address] March, [facility] [address] [id number] [address] [place] [address], [place] [address] Feb, [facility] [address] [id number] [address] [place] [address], [place] [address] Feb, [facility] [address] [id number] [address] [place] [address], [place] [address] Jan, [facility] [address] [id number] [address] [place] [address], [place] [address] Jan, [facility] [address] [id number] [address] [place] [address], [place] [address] Jan, [facility] [address] [id number] [address] [place] [address], [place] [address] Jan, [facility] [address] [id number] [address] [place] [address], [place] [address] Jan, [facility] [address] [id number] [address] [place] [address], [place] [address] Dec, [facility] [address] [id number] [address] [place] [address], [place] [address] Dec, [facility] [address] [id number] [address] [place] [address], [place] [address] Nov, [facility] [address] [id number] [address] [place] [address], [place] [address] Nov, [facility] [address] [id number] [address] [place] [address], [place] [address] Nov, [facility] [address] [id number] [address] [place] [address], [place] [address] Oct, [facility] [address] [id number] [address] [place] [address], [place] [address] Oct, [facility] [address] [id number] [address] [place] [address], [place] [address] Oct, [facility] [address] [id number] [address] [place] [address], [place] [address] Oct, [facility] [address] [id number] [address] [place] [address], [place] [address] Oct, [facility] [address] [id number] [address] [place] [address], [place] [address] Oct, [facility] [address] [id number] [address] [place] [address], [place] [address] Sep, [facility] [address] [id number] [address] [place] [address], [place] [address] Sep, [facility] [address] [id number] [address] [place] [address], [place] [address] Sep, [facility] [address] [id number] [address] [place] [address], [place] [address] Aug, [facility] [address] [id number] [address] [place] [address], [place] [address] Aug, [facility] [address] [id number] [address] [place] [address], [place] [address] Jul, [facility] [address] [id number] [address] [place] [address], [place] [address] Jul, [facility] [address] [id number] [address] [place] [address], [place] [address] Jun, [facility] [address] [id number] [address] [place] [address], [place] [address] Jun, [facility] [address] [id number] [address] [place] [address], [place] [address] Jun, [facility] [address] [id number] [address] [place] [address], [place] [address] Jun, [facility] [address] [id number] [address] [place] [address], [place] [address] May, [facility] [address] [id number] [address] [place] [address], [place] [address] May, [facility] [address] [id number] [address] [place] [address], [place] [address] May, [facility] [address] [id number] [address] [place] [address], [place] [address] Apr, [facility] [address] [id number] [address] [place] [address], [place] [address] Apr, [facility] [address] [id number] [address] [place] [address], [place] [address] Apr, [facility] [address] [id number] [address] [place] [address], [place] [address] Apr, [facility] [address] [id number] [address] [place] [address], [place] [address] March, [facility] [address] [id number] [address] [place] [address], [place] [address] March, [facility] [address] [id number] [address] [place] [address], [place] [address] March, [facility] [address] [id number] [address] [place] [address], [place] [address] March, [facility] [address] [id number] [address] [place] [address], [place] [address] Feb, [facility] [address] [id number] [address] [place] [address], [place] [address] Feb, [facility] [address] [id number] [facility] [place] [address] Jan, [facility] [address] [id number] [address] [place] [address], [place] [address] Jan, [facility] [address] [id number] [facility] [place] [address] Jan, [facility] [address] [id number] [address] [place] [address], [place] [address] Jan, [facility] [address] [id number] [address] [place] [address], [place] [address] Jan, [facility] [address] [id number] [address] [place] [address], [place] [address] Jan, [facility] [address] [id number] [address] [place] [address], [place] [address] Jan, [facility] [address] [id number] [address] [place] [address], [place] [address] Jan, [facility] [address] [id number] [address] [place] [address], [place] [address] Dec, [facility] [address] [id number] [address] [place] [address], [place] [address] Dec, [facility] [address] [id number] [address] [place] [address], [place] [address] Dec, [facility] [address] [id number] [address] [place] [address], [place] [address] Dec, [facility] [address] [id number] [address] [place] [address], [place] [address] Nov, [facility] [address] [id number] [address] [place] [address], [place] [address] Nov, [facility] [address] [id number] [address] [place] [address], [place] [address] Oct, [facility] [address] [id number] [address] [place] [address], [place] [address] Oct, [facility] [address] [id number] [address] [place] [address], [place] [address] Oct, [facility] [address] [id number] [address] [place] [address], [place] [address] Oct, [facility] [address] [id number] [address] [place] [address], [place] [address] Sep, [facility] [address] [id number] [address] [place] [address], [place] [address] Sep, [facility] [address] [id number] [address] [place] [address], [place] [address] Sep, [facility] [address] [id number] [address] [place] [address], [place] [address] Sep, [facility] [address] [id number] [address] [place] [address], [place] [address] Aug, [facility] [address] [id number] [address] [place] [address], [place] [address] Aug, [facility] [address] [id number] [address] [place] [address], [place] [address] Aug, [facility] [address] [id number] [address] [place] [address], [place] [address] Jul, [facility] [address] [id number] [address] [place] [address], [place] [address] Jul, [facility] [address] [id number] [address] [place] [address], [place] [address] Jun, [facility] [address] [id number] [address] [place] [address], [place] [address] Jun, [facility] [address] [id number] [address] [place] [address], [place] [address] 16 May, 2013 [facility] [address] [id number] [address] [place] [address], [place] [address] May, [facility] [address] [id number] [address] [place] [address], [place] [address] Apr, [facility] [address] [id number] [address] [place] [address], [place] [address] March, [facility] [address] [id number] [address] [place] [address], [place] [address] March, [facility] [address] [id number] [address] [place] [address], [place] [address] Feb, [facility] [address] [id number] [address] [place] [address], [place] [address] Jan, [facility] [address] [id number] [address] [place] [address], [place] [address] Jan, [facility] [address] [id number] [address] [place] [address], [place] [address] Dec, [facility] [address] [id number] [address] [place] [address], [place] [address] Dec, [facility] [address] [id number] [address] [place] [address], [place] [address] Nov, [facility] [address] [id number] [address] [place] [address], [place] [address] Nov, [facility] [address] [id number] [address] [place] [address], [place] [address] Nov, [facility] [address] [id number] [address] [place] [address], [place] [address] Nov, [facility] [address] [id number] [address] [place] [address], [place] [address] Nov, [facility] [address] [id number] [address] [place] [address], [place] [address] Oct, [facility] [address] [id number] [address] [place] [address], [place] [address] Oct, [facility] [address] [id number] [address] [place] [address], [place] [address] Oct, [facility] [address] [id number] [address] [place] [address], [place] [address] Oct, [facility] [address] [id number] [address] [place] [address], [place] [address] Oct, [facility] [address] [id number] [address] [place] [address], [place] [address] Oct, [facility] [address] [id number] [address] [place] [address], [place] [address] Oct, [facility] [address] [id number] [address] [place] [address], [place] [address] Oct, [facility] [address] [id number] [address] [place] [address], [place] [address] Sep, [facility] [address] [id number] [address] [place] [address], [place] [address] Sep, [facility] [address] [id number] [address] [place] [address], [place] [address] Sep, [facility] [address] [id number] [address] [place] [address], [place] [address] Aug, [facility] [address] [id number] [address] [place] [address], [place] [address] Aug, [facility] [address] [id number] [address] [place] [address], [place] [address] Aug, [facility] [address] [address] [id number] [address] [place] [address], [place] [address] Aug, [facility] [address] [id number] [address] [place] [address], [place] [address] 08 Aug, 2012 [facility] [address] [id number] [address] [place] [address], [place] [address] 19 Jul, 2012 [facility] [address] [id number] [address] [place] [address], [place] [address] 18 Jul, 2012 [facility] [address] [id number] [address] [place] [address], [place] [address] Jun, [facility] [address] [id number] [address] [place] [address], [place] [address] May, [facility] [address] [id number] [address] [place] [address], [place] [address] May, [facility] [address] [id number] [address] [place] [address], [place] [address] Apr, [facility] [address] [id number] [address] [place] [address], [place] [address] March, [facility] [address] [id number] [address] [place] [address], [place] [address] March, [facility] [address] [id number] [address] [place] [address], [place] [address] March, [facility] [address] [id number] [address] [place] [address], [place] [address] March, [facility] [address] [id number] [address] [place] [address], [place] [address] Feb, [facility] [address] [id number] [address] [place] [address], [place] [address] Feb, [facility] [address] [id number] [address] [place] [address], [place] [address] Jan, [facility] [address] [id number] [address] [place] [address], [place] [address] Dec, [facility] [address] [id number] [address] [place] [address], [place] [address] Dec, [facility] [address] [id number] [address] [place] [address], [place] [address] Dec, [facility] [address] [id number] [address] [place] [address], [place] [address] Nov, [facility] [address] [id number] [address] [place] [address], [place] [address] Nov, [facility] [address] [id number] [address] [place] [address] Nov, [facility] [address] [id number] [address] [place] [id number] Oct, [facility] [address] [id number] [address] [place] [phone] Sep, [facility] [address] [id number] [address] [place] [phone] Aug, [facility] [address] [id number] [address] [place] [phone] Aug, [facility] [address] [id number] [address] [place] [address] May, [facility] [address] [id number] [address] [place] [phone] Sep, [facility] [address] [id number] [address] [place] [address] Sep, IMMUNIZATIONS No Known Immunizations SOCIAL HISTORY Never Assessed REASON FOR VISIT vyvanse 12/19/2017 PLAN OF CARE VITAL SIGNS MEDICATIONS Medication Instructions Dosage Frequency Start Date End Date Duration S khoaus Vyvanse 70 MG Orally Once a day 1 capsule in the morning 24h Nov, 28 days Active RESULTS No Results PROCEDURES No Known procedures INSTRUCTIONS MEDICATIONS ADMINISTERED No Known Medications MEDICAL (GENERAL) HISTORY Type Description Date Medical History bipolar Medical History adhd Medical History anxiety
--- OUTSIDE RECORDS SUMMARY | 2020-03-18 15:38 | XMS REPORT ---
Author Author Jose Cruz [facility] Address [address] [place] [address] Care Team Providers Care Distribution Operations Manager Name Role Phone FRANCIA CARLOS Unavailable PROBLEMS Type Condition ICD9-CM Code NXI32-UT Code Onset Dates Condition S tatus SNOMED Code Problem Bipolar disorder, unspecified 296.80 Active 90479957 Problem Bipolar disorder F31.9 Active 137 42181 Problem Bipolar I disorder, most recent episode (or current) mixed, moderate 296.62 Active 971560740 Problem Encounter for long-term (current) use of other medications V58.69 Active 118483173 Problem 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 Ac tive 29322360 Problem 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 314.00 Active 33346590 Problem Generalized anxiety disorder 300.02 A ctive 42891579 Problem Attention-deficit hyperactiv ity disorder, predominantly inattentive type F90.0 Active 06618779 Problem Intellectual disability F79 Active 22639928 Problem Attention deficit hyperactivity disorder F90.9 Active 739791819 Problem Intermittent explosive disorder F63.81 Active 22838619 Problem Moderate intellectual disability F71 Active 36897399 Problem Bipolar disorder, currently in remission, most recent episode unspecified F31.70 Active [id number] ALLERGIES No Information ENCOUNTERS Encounter Location Date Diagnosis [facility] [address] [facility] [id number] [address] [place] [phone] March, [facility] [address] [facility] [id number] [address] [place] [address] March, Bipolar disorder, currently in remission, most recent episode unspecified F31.70 ; Moderate intellectual disability F71 and Attention-deficit hyperactivity disorder, predominantly inattentive type F90.0 [facility] [address] [facility] [id number] [address] [place] [address] Feb, [facility] [address] [id number] [address] [place] [id number] Feb, Dental examination Z01.20 [facility] [address] [id number] [address] [place] [address] Jan, [facility] [address] [id number] [address] [place] [phone] Jan, [facility] [address] [id number] [address] [place] [address] Dec, [facility] [address] [id number] [address] [place] [phone] Nov, [facility] [address] [id number] [address] [id number] Nov, Encounter for dental exam an d cleaning w/o abnormal findings Z01.20 [facility] [address] [id number] [address] [place] [id number] Nov, Dental examination Z01.20 [facility] [address] [id number] [address] [place] [address] Oct, [facility] [address] [id number] [address] [place] [address] Oct, Bipolar disorder, currently in remission, most recent episode unspecified F31.70 ; Moderate intellectual disability F71 and Attention-deficit hyperactivity disorder, predominantly inattentive type F90.0 [facility] [address] [id number] [address] [place] [phone] Sep, [facility] [address] [id number] [address] [place] [address] Sep, [facility] [address] [id number] [address] [place] [address] Aug, [facility] [address] [id number] [address] [place] [address] Aug, Attention-deficit hyperactiv ity disorder, predominantly inattentive type F90.0 ; Moderate intellectual disability 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 and Bipolar disorder F31.9 [facility] [address] [id number] [address] [place] [address] [id number] 11 Jul, 2017 Dental examination Z01.20 an d Dental caries K02.9 [facility] [address] [facility] [id number] [address] [place] [id number] 05 Jul, 2017 [facility] [address] [facility] [id number] [address] [place] [address] Jun, Bipolar disorder F31.9 ; Att ention-deficit hyperactivity disorder, predominantly inattentive type F90.0 and Moderate intellectual disability F71 [facility] [address] [facility] [id number] [address] [place] [phone] Jun, [facility] [address] [facility] [id number] [address] [place] [phone] May, [facility] [address] [facility] [id number] [address] [place] [address] Apr, [facility] [address] [facility] [id number] [address] [place] [address] March, Intermittent explosive disor jocelyn F63.81 ; Attention deficit hyperactivity disorder F90.9 and Bipolar disorder F31.9 [facility] [address] [facility] [id number] [address] [place] [address] Feb, [facility] [address] [facility] [id number] [address] [place] [phone] Jan, [facility] [address] [facility] [id number] [address] [place] [id number] 13 Dec, 2016 Encounter for immunization Z 23 [facility] [address] [facility] [id number] [address] [place] [phone] 13 Dec, 2016 Intermittent explosive disor jocelyn F63.81 ; Attention deficit hyperactivity disorder F90.9 and Bipolar disorder, currently in remission, most recent episode unspecified F31.70 [facility] [address] [facility] [id number] [address] [place] [address] Nov, [facility] [address] [facility] [id number] [address] [place] [address] Oct, [facility] [address] [id number] [address] [place] [address] Oct, [facility] [address] [id number] [address] [place] [id number] Oct, Dental examination Z01.20 [facility] [address] [id number] [address] [place] [address] Sep, [facility] [address] [id number] [address] [place] [address] Sep, [facility] [address] [id number] [address] [place] [address] Sep, Intermittent explosive disor jocelyn F63.81 ; Bipolar disorder F31.9 and Attention deficit hyperactivity disorder F90.9 [facility] [address] [id number] [address] [place] [address] Aug, [facility] [address] [id number] [address] [place] [phone] Aug, [facility] [address] [id number] [address] [place] [phone] Aug, [facility] [address] [facility] [id number] [address] [place] [phone] Aug, Attention deficit hyperactiv ity disorder F90.9 [facility] [address] [id number] [address] [place] [address] Jul, [facility] [address] [id number] [address] [place] [address] Jun, [facility] [address] [id number] [address] [place] [address] May, [facility] [address] [id number] [address] [place] [address] Apr, [facility] [address] [id number] [address] [place] [address] Apr, Bipolar disorder F31.9 ; Att ention deficit hyperactivity disorder F90.9 and Intermittent explosive disorder F63.81 [facility] [address] [id number] [address] [place] [phone] March, [facility] [address] [id number] [address] [place] [address] Feb, [facility] [address] [id number] [address] [place] [address] Feb, [facility] [address] [id number] [address] [place] [address] Jan, [facility] [address] [id number] [address] [place] [address] Jan, [facility] [address] [facility] [id number] [address] [place] [id number] Dec, [facility] [address] [id number] [address] [place] [address] Nov, [facility] [address] [id number] [address] [place] [address] Nov, [facility] [address] [facility] [id number] [address] [place] [address] Nov, Attention deficit hyperactiv ity disorder F90.9 ; Intermittent explosive disorder F63.81 and Bipolar disorder F31.9 [facility] [address] [id number] [address] [place] [address] Oct, [facility] [address] [id number] [address] [place] [address] Oct, [facility] [address] [id number] [address] [place] [address] Sep, [facility] [address] [id number] [address] [place] [address] Aug, [facility] [address] [id number] [address] [place] [address] Jul, [facility] [address] [id number] [address] [place] [address] Jul, [facility] [address] [id number] [address] [place] [address] Jul, Anxiety, generalized 300.02 ; Bipolar disorder, unspecified 296.80 ; 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.00 ; 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 and Impulse control disorder, unspecified 312.30 [facility] [address] [id number] [address] [place] [phone] Jul, [facility] [address] [id number] [address] [place] [address] Jun, [facility] [address] [facility] [id number] [address] [place] [address] May, [facility] [address] [facility] [id number] [address] [place] [address] Apr, [facility] [address] [facility] [id number] [address] [place] [address] Apr, Bipolar disorder, unspecifie d 296.80 ; Generalized anxiety disorder 300.02 and 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.00 [facility] [address] [facility] [id number] [address] [place] [address] Apr, [facility] [address] [id number] [address] [place] [address] March, [facility] [address] [id number] [address] [place] [address] March, [facility] [address] [id number] [address] [place] [address] March, [facility] [address] [facility] [id number] [address] [place] [phone] March, [facility] [address] [facility] [id number] [address] [place] [phone] Feb, [facility] [address] [id number] [address] [place] [address], [place] [address] 13 Feb, 2015 [facility] [address] [id number] [address] [place] [address], [place] [address] Jan, [facility] [address] [id number] [address] [place] [address], [place] [address] Jan, [facility] [address] [id number] [address] [place] [address], [place] [address] Jan, [facility] [address] [id number] [address] [place] [address], [place] [address] Jan, [facility] [address] [id number] [address] [place] [address], [place] [address] Jan, [facility] [address] [id number] [address] [place] [address], [place] [address] Dec, [facility] [address] [id number] [address] [place] [address], [place] [address] Dec, [facility] [address] [id number] [address] [place] [address], [place] [address] Nov, [facility] [address] [id number] [address] [place] [address], [place] [address] Nov, [facility] [address] [id number] [address] [place] [address], [place] [address] Nov, [facility] [address] [id number] [address] [place] [address], [place] [address] Oct, [facility] [address] [id number] [address] [place] [address], [place] [address] Oct, [facility] [address] [id number] [address] [place] [address], [place] [address] Oct, [facility] [address] [id number] [address] [place] [address], [place] [address] Oct, [facility] [address] [id number] [address] [place] [address], [place] [address] Oct, [facility] [address] [id number] [address] [place] [address], [place] [address] Oct, [facility] [address] [id number] [address] [place] [address], [place] [address] Sep, [facility] [address] [id number] [address] [place] [address], [place] [address] Sep, [facility] [address] [id number] [address] [place] [address], [place] [address] Sep, [facility] [address] [id number] [address] [place] [address], [place] [address] Aug, [facility] [address] [id number] [address] [place] [address], [place] [address] Aug, [facility] [address] [id number] [address] [place] [address], [place] [address] Jul, [facility] [address] [id number] [address] [place] [address], [place] [address] Jul, [facility] [address] [id number] [address] [place] [address], [place] [address] Jun, [facility] [address] [id number] [address] [place] [address], [place] [address] Jun, [facility] [address] [id number] [address] [place] [address], [place] [address] Jun, [facility] [address] [id number] [address] [place] [address], [place] [address] Jun, [facility] [address] [id number] [address] [place] [address], [place] [address] May, [facility] [address] [id number] [address] [place] [address], [place] [address] May, [facility] [address] [id number] [address] [place] [address], [place] [address] May, [facility] [address] [id number] [facility] [address] Apr, [facility] [address] [id number] [address] [place] [address], [place] [address] Apr, [facility] [address] [id number] [address] [place] [address], [place] [address] Apr, [facility] [address] [id number] [address] [place] [address], [place] [address] Apr, [facility] [address] [id number] [address] [place] [address], [place] [address] March, [facility] [address] [id number] [address] [place] [address], [place] [address] March, [facility] [address] [id number] [address] [place] [address], [place] [address] March, [facility] [address] [id number] [address] [place] [address], [place] [address] March, [facility] [address] [id number] [address] [place] [address], [place] [address] Feb, [facility] [address] [id number] [address] [place] [address], [place] [address] Feb, [facility] [address] [id number] [address] [place] [address], [place] [address] Jan, [facility] [address] [id number] [address] [place] [address], [place] [address] Jan, [facility] [address] [id number] [address] [place] [address], [place] [address] Jan, [facility] [address] [id number] [address] [place] [address], [place] [address] Jan, [facility] [address] [id number] [address] [place] [address], [place] [address] Jan, [facility] [address] [id number] [address] [place] [address], [place] [address] Jan, [facility] [address] [id number] [address] [place] [address], [place] [address] Jan, [facility] [address] [id number] [address] [place] [address], [place] [address] Jan, [facility] [address] [id number] [address] [place] [address], [place] [address] Dec, [facility] [address] [id number] [address] [place] [address], [place] [address] Dec, [facility] [address] [id number] [address] [place] [address], [place] [address] Dec, [facility] [address] [id number] [address] [place] [address], [place] [address] Dec, [facility] [address] [id number] [address] [place] [address], [place] [address] Nov, [facility] [address] [id number] [address] [place] [address], [place] [address] Nov, [facility] [address] [id number] [address] [place] [address], [place] [address] Oct, [facility] [address] [id number] [address] [place] [address], [place] [address] Oct, [facility] [address] [id number] [address] [place] [address], [place] [address] Oct, [facility] [address] [id number] [address] [place] [address], [place] [address] Oct, [facility] [address] [id number] [address] [place] [address], [place] [address] Sep, [facility] [address] [id number] [address] [place] [address], [place] [address] Sep, [facility] [address] [id number] [address] [place] [address], [place] [address] Sep, [facility] [address] [id number] [address] [place] [address], [place] [address] 07 Sep, 2013 [facility] [address] [id number] [address] [place] [address], [place] [address] Aug, [facility] [address] [id number] [address] [place] [address], [place] [address] Aug, [facility] [address] [id number] [address] [place] [address], [place] [address] Aug, [facility] [address] [id number] [address] [place] [address], [place] [address] Jul, [facility] [address] [id number] [address] [place] [address], [place] [address] Jul, [facility] [address] [id number] [address] [place] [address], [place] [address] Jun, [facility] [address] [id number] [address] [place] [address], [place] [address] Jun, [facility] [address] [id number] [address] [place] [address], [place] [address] May, [facility] [address] [id number] [address] [place] [address], [place] [address] May, [facility] [address] [id number] [address] [place] [address], [place] [address] Apr, [facility] [address] [id number] [address] [place] [address], [place] [address] March, [facility] [address] [id number] [address] [place] [address], [place] [address] March, [facility] [address] [id number] [address] [place] [address], [place] [address] Feb, [facility] [address] [id number] [address] [place] [address], [place] [address] Jan, [facility] [address] [id number] [address] [place] [address], [place] [address] Jan, [facility] [address] [id number] [address] [place] [address], [place] [address] Dec, [facility] [address] [id number] [address] [place] [address], [place] [address] Dec, [facility] [address] [id number] [address] [place] [address], [place] [address] Nov, [facility] [address] [id number] [address] [place] [address], [place] [address] Nov, [facility] [address] [id number] [address] [place] [address], [place] [address] Nov, [facility] [address] [id number] [address] [place] [address], [place] [address] Nov, [facility] [address] [id number] [address] [place] [address], [place] [address] Nov, [facility] [address] [id number] [address] [place] [address], [place] [address] Oct, [facility] [address] [id number] [address] [place] [address], [place] [address] Oct, [facility] [address] [id number] [address] [place] [address], [place] [address] Oct, [facility] [address] [id number] [address] [place] [address], [place] [address] Oct, [facility] [address] [id number] [address] [place] [address], [place] [address] Oct, [facility] [address] [id number] [address] [place] [address], [place] [address] Oct, [facility] [address] [id number] [address] [place] [address], [place] [address] Oct, [facility] [address] [id number] [address] [place] [address], [place] [address] Oct, [facility] [address] [id number] [address] [place] [address], [place] [address] 07 Sep, 2012 [facility] [address] [id number] [address] [place] [address], [place] [address] Sep, [facility] [address] [id number] [address] [place] [address], [place] [address] Sep, [facility] [address] [id number] [address] [place] [address], [place] [address] Aug, [facility] [address] [id number] [address] [place] [address], [place] [address] Aug, [facility] [address] [id number] [address] [place] [address], [place] [address] Aug, [facility] [address] [id number] [address] [place] [address], [place] [address] Aug, [facility] [address] [id number] [address] [place] [address], [place] [address] Aug, [facility] [address] [id number] [address] [place] [address], [place] [address] Jul, [facility] [address] [address] [id number] [address] [place] [address], [place] [address] Jul, [facility] [address] [id number] [address] [place] [address], [place] [address] Jun, [facility] [address] [id number] [address] [place] [address], [place] [address] May, [facility] [address] [id number] [address] [place] [address], [place] [address] May, [facility] [address] [id number] [address] [place] [address], [place] [address] Apr, [facility] [address] [id number] [address] [place] [address], [place] [address] March, [facility] [address] [id number] [address] [place] [address], [place] [address] March, [facility] [address] [id number] [address] [place] [address], [place] [address] March, [facility] [address] [id number] [address] [place] [address], [place] [address] March, [facility] [address] [id number] [address] [place] [address], [place] [address] Feb, [facility] [address] [id number] [address] [place] [address], [place] [address] Feb, [facility] [address] [id number] [address] [place] [address], [place] [address] Jan, [facility] [address] [id number] [address] [place] [address], [place] [address] Dec, [facility] [address] [id number] [address] [place] [address], [place] [address] Dec, [facility] [address] [id number] [address] [place] [address], [place] [address] Dec, [facility] [address] [id number] [address] [place] [address], [place] [address] Nov, [facility] [address] [id number] [address] [place] [address], [place] [address] Nov, [facility] [address] [id number] [address] [place] [address], [place] [address] Nov, [facility] [address] [id number] [address] [place] [address], [place] [address] Oct, [facility] [address] [id number] [address] [place] [address], [place] [address] Sep, [facility] [address] [id number] [address] [place] [address], [place] [address] Aug, [facility] [address] [id number] [address] [place] [address], [place] [address] Aug, [facility] [address] [id number] [address] [place] [address] May, [facility] [address] [facility] [id number] [address] [place] [address] Sep, [facility] [address] [facility] [id number] [address] [place] [address] Sep, IMMUNIZATIONS No Known Immunizations SOCIAL HISTORY Never Assessed REASON FOR VISIT PA for [facility] PLAN OF CARE VITAL SIGNS MEDICATIONS Unknown Medications RESULTS No Results PROCEDURES No Known procedures INSTRUCTIONS MEDICATIONS ADMINISTERED No Known Medications MEDICAL (GENERAL) HISTORY Type Description Date Medical History bipolar Medical History adhd Medical History anxiety
--- OUTSIDE RECORDS SUMMARY | 2020-03-18 15:38 | XMS REPORT ---
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 Active 95642259 Problem Bipolar disorder, unspecified 296.80 Active 81835244 Problem Generalized anxiety disorder 300.02 A ctive 23924771 Problem 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 Ac tive 39094471 Problem Bipolar disorder, currently in remission, most recent episode unspecified F31.70 Active 04756622 Problem Attention deficit hyperactivity disorder F90.9 Active 161475901 Problem Bipolar I disorder, most recent episode (or current) mixed, moderate 296.62 Active 898190485 Problem Encounter for long-term (current) use of other medications V58.69 Active 648781187 Problem Intermittent explosive disorder F63.81 Active 26108104 Problem Bipolar disorder F31.9 Active 137 15862 ALLERGIES Unknown Allergies SOCIAL HISTORY No smoking Hx information available PLAN OF CARE VITAL SIGNS MEDICATIONS Medication Instructions Dosage Frequency Start Date End Date Duration S tatus Vyvanse 70 MG Orally Once a day 1 capsule in the morning 24h Sep, 30 days Active RESULTS No Results PROCEDURES No Known procedures IMMUNIZATIONS No Known Immunizations
--- OUTSIDE RECORDS SUMMARY | 2020-03-18 15:38 | XMS REPORT ---
Author Jose Cruz Daniels Organization [employer] Address Unknown Phone Unavailable Care Team Providers Care Rnp Name Role Phone BRODIE HERNANDEZ CP Unavailable [...] Start Date End Date Status Dosage Vyvanse [facility] [address]-47 50 mg Orally TAKE ONE CAPSULE BY MOUTH IN THE MORNING AND ONE CAPSULE AT NOON FOR ADHD Results No Known Results Summary Purpose [employer] Submission
--- OUTSIDE RECORDS SUMMARY | 2020-03-18 15:38 | XMS REPORT ---
Author Jose Cruz Ulloa [facility] Address [address] [place] [address] Care Team Providers Care Television News Video Editor Name Role Phone SHUN HAWKINS Unavailable PROBLEMS Type Condition ICD9-CM Code [id number] Code Onset Dates Condition S tatus SNOMED Code Problem Bipolar disorder, unspecified 296.80 Active 05249724 Problem Bipolar disorder F31.9 Active 137 21043 Problem Bipolar I disorder, most recent episode (or current) mixed, moderate 296.62 Active 284139016 Problem Encounter for long-term (current) use of other medications V58.69 Active 637100354 Problem 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 Ac tive 50374452 Problem 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 314.00 Active 92646659 Problem Generalized anxiety disorder 300.02 A ctive 68466152 Problem Attention-deficit hyperactiv ity disorder, predominantly inattentive type F90.0 Active 75011206 Problem Intellectual disability F79 Active 45373670 Problem Attention deficit hyperactivity disorder F90.9 Active 356840213 Problem Intermittent explosive disorder F63.81 Active 20711519 Problem Moderate intellectual disability F71 Active 92068940 Problem Bipolar disorder, currently in remission, most recent episode unspecified F31.70 Active 98600269 ALLERGIES No Known Allergies SOCIAL HISTORY Never Assessed PLAN OF CARE VITAL SIGNS MEDICATIONS Medication Instructions Dosage Frequency Start Date End Date Duration S tatus Zyprexa Zydis 10 Orally Once a day 1 tablet on the tongue and al low to dissolve 24h 30 days Active Clonidine HCl 0.1 MG Orally three times a day 1 tablet 8h 10 J 2014 30 days Active Vyvanse 70 MG Orally Once a day 1 capsule in the morning 24h Dec, 28 days Active Seroquel 200 MG Orally Once a day 1 tablet 24h Jan, 30 days Active Rozerem 8 MG Orally Once a day 1 tablet at bedtime as needed 24h Jan, 30 days Active Zyprexa Zydis 10 MG Orally Once a day 1 tablet on the tong ue and allow to dissolve 24h Oct, 30 days Active Docusate Sodium 100 Orally Once a day 1 capsule as needed 24h 30 Active Zyprexa 15 MG Orally Once a day 2 tablets 24h Jan, 3 0 days Active Adderall 20 mg Orally Once a day 1 tablet at 4 pm 24h Dec, 28 days Active Fish Oil by Oral route Jun, Acti ve Fluvoxamine Maleate 100 MG Orally Once a day 3 tablets 24h 2014 30 days Active RESULTS No Results PROCEDURES Procedure Date Ordered Result Body Site FLUARIX QUAD P-FREE 3 AND UP .50 2015Jan 10, 2017 SINGLE IMMUNIZATION ADMIN Jan 10, 2017 IMMUNIZATIONS Vaccine Route Administration Date Status FLUARIX QUAD P-FREE 3 AND UP .50 2015 IM Intramuscular Jan 10 017 Administered MEDICAL (GENERAL) HISTORY Type Description Date Medical History bipolar Medical History adhd Medical History anxiety
--- OUTSIDE RECORDS SUMMARY | 2020-03-18 15:38 | XMS REPORT ---
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 314.00 Active 33499980 Problem Bipolar disorder, unspecified 296.80 Active 79341386 Problem Generalized anxiety disorder 300.02 A ctive 97280646 Problem 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 Ac tive 24832036 Problem Bipolar disorder, currently in remission, most recent episode unspecified F31.70 Active 51441526 Problem Attention deficit hyperactivity disorder F90.9 Active 369731830 Problem Bipolar I disorder, most recent episode (or current) mixed, moderate 296.62 Active 275994304 Problem Encounter for long-term (current) use of other medications V58.69 Active 666621850 Problem Intermittent explosive disorder F63.81 Active 14775564 Problem Bipolar disorder F31.9 Active 137 69059 ALLERGIES Unknown Allergies SOCIAL HISTORY No smoking Hx information available PLAN OF CARE Activity Details Follow Up 3 Months Reason: VITAL SIGNS Height 74.5 in 2016-10-06 Weight 264.4 lbs 2016-10-06 Heart Rate 80 bpm 2016-10-06 Respiratory Rate 20 2016-10-06 BMI 33.49 kg/m2 2016-10-06 Blood pressure systolic 132 mmHg 2016-10-06 Blood pressure diastolic 70 mmHg 2016-10-06 MEDICATIONS Medication Instructions Dosage Frequency Start Date End Date Duration S tatus Adderall 20 MG Orally Once a day 1 tablet at 4 pm 24h Sep, 30 days Active Zyprexa 15 MG Orally Once a day 2 tablets 24h Jan, 3 0 days Active Vyvanse 70 MG Orally Once a day 1 capsule in the morning 24h Sep, 30 days Active Rozerem 8 MG Orally Once a day 1 tablet at bedtime as needed 24h Jan, 30 days Active Zyprexa Zydis 10 Orally Once a day 1 tablet on the tongue and al low to dissolve 24h 30 days Active Zyprexa Zydis 10 MG Orally Once a day 1 tablet on the tong ue and allow to dissolve 24h Oct, 30 days Active Fluvoxamine Maleate 100 MG Orally Once a day 3 tablets 24h 10 2014 30 days Active Fish Oil by Oral route Jun, Acti ve Clonidine HCl 0.1 MG Orally three times a day 1 tablet 8h 10 2014 30 days Active Vyvanse 70 MG Orally Once a day 1 capsule in the morning 24h Sep, 30 days Active Seroquel 200 MG Orally Once a day 1 tablet 24h Jan, 30 days Active Docusate Sodium 100 Orally Once a day 1 capsule as needed 24h 30 Active Adderall 20 MG Orally Once a day 1 tablet at 4 pm 24h Sep, 30 days Active RESULTS No Results PROCEDURES Procedure Date Ordered Related Diagnosis Body Site Office Visit, Est Pt., Level 3 Oct 06, 2016 IMMUNIZATIONS No Known Immunizations
--- OUTSIDE RECORDS SUMMARY | 2020-03-18 15:39 | XMS REPORT ---
Author Jose Cruz Daniels Organization [employer] Address Unknown Phone Unavailable Care Team Providers Care [facility] Winder Name Role Phone BRODIE HERNANDEZ CP Unavailable [...] Start Date End Date Status Dosage Vyvanse [facility] [address]-68 70 MG Orally Once a day in the morning TAKE ONE CAPSULE Adderall [facility] [address]-39 20 mg Orally Once a day at 4pm Sep 17 16 1 tablet in the morning Results No Known Results Summary Purpose [employer] Submission
--- OUTSIDE RECORDS SUMMARY | 2020-03-18 15:39 | XMS REPORT | Continuity of Care Document ---
Author Organization Unknown Address Unknown Phone Unavailable Allergies There is no data. Medications There is no data. Problems Date Dx Coded Attending Type Code Diagnosis Diagnosed By 08/26/2010 MARLEE JO MICHEAL NOGUERA 296.90 MO MOOD DIS NOS 08/26/2010 WHALEN DEYSI MICHEAL NOGUERA 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 DEFIANT 08/26/2010 WHALEN LINE OUT WORKER, MICHEAL POORNIMA 314.01 ADHD COMBINED 08/26/2010 WHALEN LINE OUT WORKER, MICHEAL NOGUERA 317 MILD MENTAL RETARDATION 08/26/2010 MARLEE CISNEROSDeondre MICHEAL NOGUERA 296.90 MO MOOD DIS NOS 08/26/2010 WHALENEVANGELINA CISNEROSDeondre MICHEAL NOGUERA 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 DEFIANT 08/26/2010 WHALENEVANGELINA CISNEROSDeondre MICHEAL NOGUERA 314.01 ADHD COMBINED 08/26/2010 WHALENEVANGELINA CISNEROSDeondre MICHEAL NOGUERA 317 MILD MENTAL RETARDATION 08/26/2010 MARLEE CISNEROSDeondre MICHEAL NOGUERA 296.90 MO MOOD DIS NOS 08/26/2010 WHALENEVANGELINA CISNEROSDeondre MICHEAL NOGUERA 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 DEFIANT 08/26/2010 MARLEE CISNEROSDeondre MICHEAL NOGUERA 314.01 ADHD COMBINED 08/26/2010 WHALENEVANGELINA CISNEROSDeondre MICHEAL NOGUERA 317 MILD MENTAL RETARDATION 08/26/2010 MARLEE CISNEROSDeondre MICHEAL NOGUERA 296.90 MO MOOD DIS NOS 08/26/2010 WHALEN LINE OUT WORKER, MICHEAL NOGUERA 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 DEFIANT 08/26/2010 WHALEN LINE OUT WORKER, MICHEAL NOGUERA 314.01 ADHD COMBINED 08/26/2010 WHALENEVANGELINA CISNEROSDeondre MICHEAL NOGUERA 317 MILD MENTAL RETARDATION 08/26/2010 WHALENEVANGELINA CISNEROSDeondre MICHEAL NOGUERA 296.90 MO MOOD DIS NOS 08/26/2010 WHALENEVANGELINA CISNEROSDeondre MICHEAL NOGUERA 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 DEFIANT 08/26/2010 WHALEN DEYSI MICHEAL POORNIMA 314.01 ADHD COMBINED 08/26/2010 WHALEN LINE OUT WORKER, MICHEAL POORNIMA 317 MILD MENTAL RETARDATION 08/26/2010 WHALEN LINE OUT WORKER, MICHEAL NOGUERA 296.90 MO MOOD DIS NOS 08/26/2010 WHALEN LINE OUT WORKER, MICHEAL NOGUERA 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 DEFIANT 08/26/2010 WHALEN LINE OUT WORKER, MICHEAL NOGUERA 314.01 ADHD COMBINED 08/26/2010 WHALENMICHEAL JAY APRN 317 MILD MENTAL RETARDATION 08/26/2010 WHALEN LINE OUT WORKER, MICHEAL NOGUERA 296.90 MO MOOD DIS NOS 08/26/2010 WHALEN LINE OUT WORKER, MICHEAL NOGUERA 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 DEFIANT 08/26/2010 WHALEN LINE OUT WORKER, MICHEAL NOGUERA 314.01 ADHD COMBINED 08/26/2010 MICHEAL WHALEN APRN 317 MILD MENTAL RETARDATION 08/26/2010 WHALEN LINE OUT WORKER, MICHEAL NOGUERA 296.90 MO MOOD DIS NOS 08/26/2010 WHALEN DEYSI, MICHEAL NOGUERA 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 DEFIANT 08/26/2010 MARLEE JO, MICHEAL NOGUERA 314.01 ADHD COMBINED 08/26/2010 MICHEAL WHALEN APRN 317 MILD MENTAL RETARDATION 08/26/2010 WHALENMICHEAL JAY APRN 296.90 MO MOOD DIS NOS 08/26/2010 MARLEE JO, MICHEAL NOGUERA 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 DEFIANT 08/26/2010 MICHEAL WHALEN APRN 314.01 ADHD COMBINED 08/26/2010 WHALENMICHEAL JAY APRN 317 MILD MENTAL RETARDATION 08/26/2010 DAVID CONTINUOUS CHURN BUTTERMAKER, BRODIE M 296.90 MO MOOD DIS NOS 08/26/2010 DAVID CONTINUOUS CHURN BUTTERMAKER, BRODIE M 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 DEFIANT 08/26/2010 DAVID CONTINUOUS CHURN BUTTERMAKER, BRODIE M 314.01 ADHD COMBINED 08/26/2010 DAVID CONTINUOUS CHURN BUTTERMAKER, BRODIE M 3 17 MILD MENTAL RETARDATION 08/26/2010 DAVID CONTINUOUS CHURN BUTTERMAKER, BRODIE M 296.90 MO MOOD DIS NOS 08/26/2010 DAVID CONTINUOUS CHURN BUTTERMAKER, BRODIE M 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 DEFIANT 08/26/2010 DAVID CONTINUOUS CHURN BUTTERMAKER, BRODIE M 314.01 ADHD COMBINED 08/26/2010 DAVID CONTINUOUS CHURN BUTTERMAKER, BRODIE M 3 17 MILD MENTAL RETARDATION 08/26/2010 DAVID CONTINUOUS CHURN BUTTERMAKER, BRODIE M 296.90 MO MOOD DIS NOS 08/26/2010 DAVID CONTINUOUS CHURN BUTTERMAKER, BRODIE M 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 DEFIANT 08/26/2010 DAVID CONTINUOUS CHURN BUTTERMAKER, BRODIE M 314.01 ADHD COMBINED 08/26/2010 DAVID LIRA, BRODIE M 3 17 MILD MENTAL RETARDATION 12/22/2012 WHALEN LINE OUT WORKER, MICHEAL NOGUERA V58.69 MEDICATION HIGH RISK 12/22/2012 WHALEN LINE OUT WORKER, MICHEAL NOGUERA V58.69 MEDICATION HIGH RISK 12/22/2012 WHALEN LINE OUT WORKER, MICHEAL NOGUERA V58.69 MEDICATION HIGH RISK 12/22/2012 WHALEN LINE OUT WORKER, MICHEAL NOGUERA V58.69 MEDICATION HIGH RISK 12/22/2012 WHALEN LINE OUT WORKER, MICHEAL NOGUERA V58.69 MEDICATION HIGH RISK 12/22/2012 WHALEN LINE OUT WORKER, MICHEAL NOGUERA V58.69 MEDICATION HIGH RISK 12/22/2012 WHALEN LINE OUT WORKER, MICHEAL NOGUERA V58.69 MEDICATION HIGH RISK 12/22/2012 WHALEN LINE OUT WORKER, MICHEAL NOGUERA V58.69 MEDICATION HIGH RISK 12/22/2012 DAVID CONTINUOUS CHURN BUTTERMAKER, BRODIE M V58.69 MEDICATION HIGH RISK 12/22/2012 DAVID CONTINUOUS CHURN BUTTERMAKER, BRODIE M V58.69 MEDICATION HIGH RISK 12/22/2012 DAVID CONTINUOUS CHURN BUTTERMAKER, BRODIE M V58.69 MEDICATION HIGH RISK 02/20/2014 WHALEN LINE OUT WORKER, MICHEAL NOGUERA 296.80 MO BIPOLAR NOS 02/20/2014 WHALEN LINE OUT WORKER, MICHEAL POORNIMA 296.80 MO BIPOLAR NOS 02/20/2014 WHALEN LINE OUT WORKER, MICHEAL NOGUERA 296.80 MO BIPOLAR NOS 02/20/2014 DAVID CONTINUOUS CHURN BUTTERMAKER, BRODIE M 296.80 MO BIPOLAR NOS 02/20/2014 DAVID CONTINUOUS CHURN BUTTERMAKER, BRODIE M 296.80 MO BIPOLAR NOS 02/20/2014 DAVID CONTINUOUS CHURN BUTTERMAKER, BRODIE M 296.80 MO BIPOLAR NOS 04/23/2014 WHALEN LINE OUT WORKER, MICHEAL POORNIMA 300.02 AN GEN ANXIETY 04/23/2014 WHALEN LINE OUT WORKER, MICHEAL POORNIMA 314.00 ADHD INATTENTIVE 04/23/2014 WHALEN LINE OUT WORKER, MICHEAL POORNIMA 318.0 MODERATE MENTAL RETARDATION 04/23/2014 WHALEN LINE OUT WORKER, MICHEAL POORNIMA 300.02 AN GEN ANXIETY 04/23/2014 WHALEN LINE OUT WORKER, MICHEAL POORNIMA 314.00 ADHD INATTENTIVE 04/23/2014 WHALEN LINE OUT WORKER, MICHEAL POORNIMA 318.0 MODERATE MENTAL RETARDATION 04/23/2014 BRODIE GREEN 300.02 AN GEN ANXIETY 04/23/2014 BRODIE GREEN M 314.00 ADHD INATTENTIVE 04/23/2014 BRODIE GREEN M 318.0 MODERATE MENTAL RETARDATION 04/23/2014 BRODIE GREEN M 300.02 AN GEN ANXIETY 04/23/2014 BRODIE GREEN M 314.00 ADHD INATTENTIVE 04/23/2014 BRODIE GREEN M 318.0 MODERATE MENTAL RETARDATION 04/23/2014 BRODIE GREEN M 300.02 AN GEN ANXIETY 04/23/2014 BRODIE GREEN M 314.00 ADHD INATTENTIVE 04/23/2014 BRODIE GREEN M 318.0 MODERATE MENTAL RETARDATION 11/13/2014 BRODIE GREEN M 296.62 MO BIPOLAR I MIXED MODERATE 11/13/2014 BRODIE GREEN M 296.62 MO BIPOLAR I MIXED MODERATE 11/13/2014 BRODIE GREEN M 296.62 MO BIPOLAR I MIXED MODERATE Procedures Code Description [place] [address] PSYC H IND W/MED CK 20 09/13/2012 67705 CMP 12/28/2012 54519 LIPI D PANEL 12/28/2012 95392 CBC 12/28/2012 04465 CMP 01/30/2014 62979 LIPI D PANEL 01/30/2014 31381 [facility] 01/30/2014 50419 [facility] 01/30/2014 Results Test Result Range PDM - 09 PANEL (PROFILE 1) - 04/20/19 14 :54 Creatinine >350.0 mg/dL > or = 20.0 pH 6.95 4.5 - 9.0 Oxidant NEGATIVE mcg/mL <200 Amphetamines POSITIVE ng/mL <500 Benzodiazepines NEGATIVE CONFIRMED ng/mL <100 Marijuana Metabolite NEGATIVE ng/mL <20 medMATCH Marijuana Metab CONSISTENT NRG Cocaine Metabolite NEGATIVE ng/mL <150 medMATCH Cocaine Metab CONSISTENT NRG Opiates NEGATIVE ng/mL <100 medMATCH Opiates CONSISTENT NRG Oxycodone NEGATIVE ng/mL <100 medMATCH Oxycodone CONSISTENT NRG COMMENT NRG Amphetamine 5734 ng/mL <250 medMATCH Amphetamine INCONSISTENT NRG Methamphetamine NEGATIVE ng/mL <250 medMATCH Methamphetamine CONSISTENT NRG Alphahydroxyalprazolam NEGATIVE ng/mL <25 medMATCH aOH alprazolam CONSISTENT NRG Alphahydroxymidazolam NEGATIVE ng/mL < 50 medMATCH aOH midazolam CONSISTENT NRG Alphahydroxytriazolam NEGATIVE ng/mL < 50 medMATCH aOH triazolam CONSISTENT NRG Aminoclonazepam NEGATIVE ng/mL <25 medMATCH Aminoclonazepam CONSISTENT NRG Hydroxyethylflurazepam NEGATIVE ng/mL <50 medMATCH OH,Et flurazepam CONSISTENT NR G Lorazepam NEGATIVE ng/mL <50 medMATCH Lorazepam CONSISTENT NRG Nordiazepam NEGATIVE ng/mL <50 medMATCH Nordiazepam CONSISTENT NRG Oxazepam NEGATIVE ng/mL <50 medMATCH Oxazepam CONSISTENT NRG Temazepam NEGATIVE ng/mL <50 medMATCH Temazepam CONSISTENT NRG Barbiturates NEGATIVE ng/mL <300 medMATCH Barbiturates CONSISTENT NRG Methadone Metabolite NEGATIVE ng/mL <100 medMATCH Methadone Metab CONSISTENT NRG Phencyclidine NEGATIVE ng/mL <25 medMATCH Phencyclidine CONSISTENT NRG A1C - 04/20/19 14:54 HEMOGLOBIN A1c 5.4 % of total Hgb <5.7 PAIN MGMT,METHYLPHENIDATE METAB,QN,W/med MATCH,U - 06/07/19 09:17 Prescribed Drug 1 Vyvanse(TM) NRG COMMENT NRG Ritalinic Acid NEGATIVE ng/mL <100 medMATCH Ritalinic Acid CONSISTENT NRG Complete blood count (CBC) with automate d white blood cell (WBC) differential - 03/18/20 00:22 Blood leukocytes automated count (number/volume) 8.6 10*3/uL 4.3-11.0 Blood erythrocytes automated count (number/volume) 4.87 10*6/uL 4.35-5.85 Venous blood hemoglobin measurement (mass/volume) 14.7 g/dL 13.3-17.7 Blood hematocrit (volume fraction) 43 % 40-54 Automated erythrocyte mean corpuscular volume 87 [ foz_us] 80-99 Automated erythrocyte mean corpuscular h emoglobin (mass per erythrocyte) 30 pg 25-34 Automated erythrocyte mean corpuscular h emoglobin concentration measurement (mass/volume) 35 g/dL 32-36 Automated erythrocyte distribution width ratio 12. 8 % 10.0- 14.5 Automated blood platelet count (count/volume) 223 10*3/uL 130-400 Automated blood platelet mean volume measurement 11.3 [foz_us] 7.4-10.4 Automated blood neutrophils/100 leukocytes 42 % 42-75 Automated blood lymphocytes/100 leukocytes 47 % 12-44 Blood monocytes/100 leukocytes 8 % 0-12 Automated blood eosinophils/100 leukocytes 3 % 0-10 Automated blood basophils/100 leukocytes 0 % 0-10 Blood neutrophils automated count (number/volume) 3.6 10*3 1.8-7.8 Blood lymphocytes automated count (number/volume) 4.0 10*3 1.0-4.0 Blood monocytes automated count (number/volume) 0. 7 10*3 0.0-1.0 Automated eosinophil count 0.2 10*3/uL 0 .0-0.3 Automated blood basophil count (count/volume) 0.0 10*3/uL 0.0-0.1 Comprehensive metabolic panel - 03/18/20 00:22 Serum or plasma sodium measurement (moles/volume) 141 mmol/L 135-145 Serum or plasma potassium measurement (moles/volume) 3.9 mmol/L 3.6-5.0 Serum or plasma chloride measurement (moles/volume) 105 mmol/L 98-107 Carbon dioxide 25 mmol/L 21-32 Serum or plasma anion gap determination (moles/volume) 11 mmol/L 5-14 Serum or plasma urea nitrogen measurement (mass/volume ) 7 mg/dL 7-18 Serum or plasma creatinine measurement (mass/volume) 1.03 mg/dL 0.60-1.30 Serum or plasma urea nitrogen/creatinine mass ratio 7 NRG Serum or plasma creatinine measurement w ith calculation of estimated glomerular filtration rate > NRG Serum or plasma glucose measurement (mass/volume) 87 mg/dL 70-105 Serum or plasma calcium measurement (mass/volume) 9.1 mg/dL 8.5-10.1 Serum or plasma total bilirubin measurement (mass/volu me) 0.6 mg/dL 0.1-1.0 Serum or plasma alkaline phosphatase fred surement (enzymatic activity/volume) 50 U/L 40-136 Serum or plasma aspartate aminotransfera se measurement (enzymatic activity/volume) 21 U/L 5-34 Serum or plasma alanine aminotransferase measurement (enzymatic activity/volume) 20 U/L 0-55 Serum or plasma protein measurement (mass/volume) 7.1 g/dL 6.4-8.2 Serum or plasma albumin measurement (mass/volume) 3.9 g/dL 3.2-4.5 CALCIUM CORRECTED 9.2 mg/dL 8.5-10.1 Serum or plasma troponin i.cardiac measu rement (mass/volume) - 03/18/20 00:22 Serum or plasma troponin i.cardiac measurement (mass/v olume) < ng/mL <0.028 Serum or plasma ethanol measurement (mas s/volume) - 03/18/20 00:22 Serum or plasma ethanol measurement (mass/volume) < mg/dL <10 Complete urinalysis with reflex to cultu re - 03/18/20 01:49 Urine color determination YELLOW NRG Urine clarity determination SL CLOUDY N RG Urine pH measurement by test strip 7.0 5-9 Specific gravity of urine by test strip 1.010 1.016-1.022 Urine protein assay by test strip, semi-quantitative NEGATIVE NEGATIVE Urine glucose detection by automated test strip NE GATIVE NEGATIVE Erythrocytes detection in urine sediment by light micr oscopy NEGATIVE NEGATIVE Urine ketones detection by automated test strip NE GATIVE NEGATIVE Urine nitrite detection by test strip NEGATIVE NEGATIVE Urine total bilirubin detection by test strip NEGA TIVE NEGATIVE Urine urobilinogen measurement by automated test strip (mass/volume) 2.0 mg/dL < = 1.0 Urine leukocyte esterase detection by dipstick NEG ATIVE NEGATIVE Automated urine sediment erythrocyte cou nt by microscopy (number/high power field) [HPF] NRG Automated urine sediment leukocyte count by microscopy (number/high power field) [HPF] NRG Bacteria detection in urine sediment by light microsco py NEGATIVE NRG Squamous epithelial cells detection in u rine sediment by light microscopy RARE NRG Crystals detection in urine sediment by light microsco py NONE NRG Casts detection in urine sediment by light microscopy NONE NRG Mucus detection in urine sediment by light microscopy NEGATIVE NRG Complete urinalysis with reflex to culture NO NRG Urine drug screening test - 03/18/20 01: 49 Urine phencyclidine detection by screening method NEGATIVE NEGATIVE Urine benzodiazepines detection by screening method NEGATIVE NEGATIVE Urine cocaine detection NEGATIVE NEGATI VE Urine amphetamines detection by screening method P OSITIVE NEGATIVE Urine methamphetamine detection by screening method POSITIVE NEGATIVE Urine cannabinoids detection by screening method P OSITIVE NEGATIVE Urine opiates detection by screening method NEGATI VE NEGATIVE Urine barbiturates detection NEGATIVE N EGATIVE Screening urine tricyclic antidepressants detection NEGATIVE NEGATIVE Urine methadone detection by screening method NEGA TIVE NEGATIVE Urine oxycodone detection NEGATIVE NEGA TIVE Urine propoxyphene detection NEGATIVE N EGATIVE Encounters ACCT No. Visit Date/Time Discharge Status Pt. Type Provider Facility Loc./Unit Complaint [id number] 11/14/2019 10:20:00 11/14/2019 23:59: 59 CLS Outpatient BRENDA DUMONT [facility] [id number] 06/07/2019 08:20:00 Document Registration [id number] 04/20/2019 14:20:00 Document Registration [id number] 03/17/2020 23:42:00 020 02:05:00 DIS Emergency BILLIE RUIZ DO [facility] [id number] 02/05/2015 10:47:00 02/05/2015 23:59: 59 CLS Outpatient BRODIE GREEN [id number] 11/13/2014 09:03:00 11/13/2014 23:59: 59 CLS Outpatient BRODIE GREEN [id number] 11/13/2014 09:03:00 11/13/2014 23:59: 59 CLS Outpatient BRODIE GREEN [id number] 07/24/2014 13:51:00 07/24/2014 23:59: 59 CLS Outpatient WHALEN DEYSI MICHEAL POORNIMA [id number] 04/23/2014 13:53:00 04/23/2014 23:59: 59 CLS Outpatient MARLEE JO MICHEAL POORNIMA [id number] 02/20/2014 10:56:00 02/20/2014 23:59: 59 CLS Outpatient WHALEN DEYSI MICHEAL POORNIMA [id number] 01/24/2014 13:22:00 01/24/2014 23:59: 59 CLS Outpatient MARLEE JO MICHEAL POORNIMA [id number] 10/24/2013 13:15:00 10/24/2013 23:59: 59 CLS Outpatient WHALEN APRN, MICHEAL POORNIMA [id number] 07/25/2013 13:40:00 07/25/2013 23:59: 59 CLS Outpatient MARLEE JOMICHEAL POORNIMA [id number] 02/23/2013 10:51:00 02/23/2013 23:59: 59 CLS Outpatient WHALEN LINE OUT WORKER, MICHEAL POORNIMA [id number] 09/13/2012 14:56:00 09/13/2012 23:59: 59 [facility] Outpatient MICHEAL WHALEN APRN [id number] 09/13/2012 14:56:00 09/13/2012 23:59:5 9 [facility] Outpatient MICHEAL WHALEN APRN
--- OUTSIDE RECORDS SUMMARY | 2020-03-18 15:39 | XMS REPORT ---
Author Author Jose Cruz Bonilla Organization [facility] Address Unknown Care Team Providers Care Pipe Bowls Paint Trimmer Name Role Phone BRODIE Bonilla Unavailable PROBLEMS Type Condition ICD9-CM Code QNY01-II Code Onset Dates Condition S tatus SNOMED Code Problem Bipolar disorder, unspecified 296.80 Active 06591337 Problem Bipolar disorder F31.9 Active 137 95890 Problem Bipolar I disorder, most recent episode (or current) mixed, moderate 296.62 Active 749737236 Problem Encounter for long-term (current) use of other medications V58.69 Active 786656487 Problem 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 Ac tive 45780408 Problem 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 314.00 Active 06411482 Problem Generalized anxiety disorder 300.02 A ctive 17203168 Problem Attention-deficit hyperactiv ity disorder, predominantly inattentive type F90.0 Active 00596305 Problem Intellectual disability F79 Active 59564201 Problem Attention deficit hyperactivity disorder F90.9 Active 390531274 Problem Intermittent explosive disorder F63.81 Active 96769220 Problem Moderate intellectual disability F71 Active 43671312 Problem Bipolar disorder, currently in remission, most recent episode unspecified F31.70 Active 71750499 ALLERGIES Unknown Allergies SOCIAL HISTORY No smoking Hx information available PLAN OF CARE VITAL SIGNS MEDICATIONS Medication Instructions Dosage Frequency Start Date End Date Duration S tatus Adderall 20 mg Orally Once a day 1 tablet at 4 pm 24h Dec, 28 days Active Vyvanse 70 MG Orally Once a day 1 capsule in the morning 24h Dec, 28 days Active RESULTS No Results PROCEDURES No Known procedures IMMUNIZATIONS No Known Immunizations
--- OUTSIDE RECORDS SUMMARY | 2020-03-18 15:39 | XMS REPORT ---
Author Jose Cruz Daniels Organization [employer] Address Unknown Phone Unavailable Care Team Providers Care Paper And Pulp Mill Operator Name Role Phone BRODIE HERNANDEZ CP [...] Start Date End Date Status Dosage Vyvanse [facility] [address]-09 50 MG Orally 2 t imes per day in the morning and at noon, for ADHD. Dr Moyer to sign for Mazin February 13, 2015 1 capsule Results No Known Results Summary Purpose [employer] Submission
--- OUTSIDE RECORDS SUMMARY | 2020-03-18 15:39 | XMS REPORT ---
Author Author Jose Cruz Bonilla Organization [facility], [place] Address Unknown Care Team Providers Care Well Puller Name Role Phone BRODIE Bonilla Unavailable PROBLEMS Type Condition ICD9-CM Code [id number] Code Onset Dates Condition S tatus SNOMED Code Problem Bipolar disorder, unspecified 296.80 Active 99633179 Problem Bipolar disorder F31.9 Active 137 43930 Problem Bipolar I disorder, most recent episode (or current) mixed, moderate 296.62 Active 395316406 Problem Encounter for long-term (current) use of other medications V58.69 Active 811306427 Problem 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 Ac tive 53284387 Problem 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 314.00 Active 50023066 Problem Generalized anxiety disorder 300.02 A ctive 21796599 Problem Attention-deficit hyperactiv ity disorder, predominantly inattentive type F90.0 Active 96095984 Problem Intellectual disability F79 Active 73957927 Problem Attention deficit hyperactivity disorder F90.9 Active 349468367 Problem Intermittent explosive disorder F63.81 Active 05071669 Problem Moderate intellectual disability F71 Active 24362412 Problem Bipolar disorder, currently in remission, most recent episode unspecified F31.70 Active 90831300 ALLERGIES No Information ENCOUNTERS Encounter Location Date Diagnosis [facility], [place] [address] [facility] [id number] [address] [place] [phone] March, [facility], [place] [address] [facility] [id number] [address] [place] [phone] Feb, [facility], [place] [address] [facility] [id number] [address] [place] [phone] Jan, [facility], [place] [address] [facility] [id number] [address] [place] [phone] Jan, [facility], [place] [address] [facility] [id number] [address] [place] [phone] Dec, [facility], [place] [address] [id number] [address] [place] [phone] Nov, [facility] [address] [id number] [address] [place] [id number] Nov, Encounter for dental exam an d cleaning w/o abnormal findings Z01.20 [facility] [address] [id number] [address] [place] [address] [phone] Nov, Dental examination Z01.20 [facility], [place] [address] [id number] [address] [place] [phone] Oct, [facility], [place] [address] [id number] [address] [place] [phone] Oct, Bipolar disorder, currently in remission, most recent episode unspecified F31.70 ; Moderate intellectual disability F71 and Attention-deficit hyperactivity disorder, predominantly inattentive type F90.0 [facility], [place] [address] [id number] [address] [place] [phone] Sep, [facility], [place] [address] [id number] [address] [place] [phone] Sep, [facility], [place] [address] [id number] [address] [place] [phone] Aug, [facility], [place] [address] [id number] [address] [place] [phone] Aug, Attention-deficit hyperactiv ity disorder, predominantly inattentive type F90.0 ; Moderate intellectual disability F71 and Bipolar disorder F31.9 [facility] [address] [id number] [address] [place] [address] [id number] Jul, Dental examination Z01.20 an d Dental caries K02.9 [facility], [place] [address] [id number] [address] [place] [phone] Jul, [facility], [place] [address] [id number] [address] [place] [phone] Jun, Bipolar disorder F31.9 ; Att ention-deficit hyperactivity disorder, predominantly inattentive type F90.0 and Moderate intellectual disability F71 [facility] [place] [address] [id number] [address] [place] [phone] 11 Jun, 2017 [facility], [place] [address] [facility] [id number] [address] [place] [id number] 17 May, 2017 [facility], [place] [address] [facility] [id number] [address] [place] [phone] Apr, [facility], [place] [address] [facility] [id number] [address] [place] [phone] March, Intermittent explosive disor jocelyn F63.81 ; Attention deficit hyperactivity disorder F90.9 and Bipolar disorder F31.9 [place] [address] [facility] [id number] [address] [place] [phone] Feb, [place] [address] [facility] [id number] [address] [place] [phone] Jan, [facility], [place] [address] [facility] [id number] [address] [place] [phone] 13 Dec, 2016 Encounter for immunization Z 23 [facility] [place] [address] [place] [id number] [address] [place] [phone] 13 Dec, 2016 Intermittent explosive disor jocelyn F63.81 ; Attention deficit hyperactivity disorder F90.9 and Bipolar disorder, currently in remission, most recent episode unspecified F31.70 [facility] [place] [address] [facility] [id number] [address] [place] [phone] Nov, [facility], [place] [address] [facility] [id number] [address] [place] [phone] Oct, [facility], [place] [address] [facility] [id number] [address] [place] [phone] Oct, [facility] [address] [id number] [address] [place] [address] [id number] Oct, Dental examination Z01.20 [facility], [place] [address] [facility] [id number] [address] [place] [phone] Sep, [facility], [place] [address] [id number] [address] [place] [phone] Sep, [facility], [place] [address] [id number] [address] [place] [phone] Sep, Intermittent explosive disor jocelyn F63.81 ; Bipolar disorder F31.9 and Attention deficit hyperactivity disorder F90.9 [facility], [place] [address] [id number] [address] [place] [phone] Aug, [facility], [place] [address] [id number] [address] [place] [phone] Aug, [facility], [place] [address] [id number] [address] [place] [phone] Aug, [facility], [place] [address] [id number] [address] [place] [phone] Aug, Attention deficit hyperactiv ity disorder F90.9 [facility], [place] [address] [id number] [address] [place] [phone] Jul, [facility], [place] [address] [id number] [address] [place] [phone] Jun, [facility], [place] [address] [id number] [address] [place] [phone] May, [facility], [place] [address] [id number] [address] [place] [phone] Apr, [facility], [place] [address] [id number] [address] [place] [phone] Apr, Bipolar disorder F31.9 ; Att ention deficit hyperactivity disorder F90.9 and Intermittent explosive disorder F63.81 [facility], [place] [address] [id number] [address] [place] [phone] March, [facility], [place] [address] [id number] [address] [place] [phone] Feb, [facility], [place] [address] [facility] [id number] [address] [place] [phone] Feb, [facility], [place] [address] [facility] [id number] [address] [place] [phone] Jan, [facility], [place] [address] [facility] [id number] [address] [place] [id number] Jan, [facility], [place] [address] [facility] [id number] [address] [place] [phone] Dec, [facility], [place] [address] [facility] [id number] [address] [place] [phone] Nov, [facility], [place] [address] [facility] [id number] [address] [place] [phone] Nov, [facility], [place] [address] [facility] [id number] [address] [place] [phone] Nov, Attention deficit hyperactiv ity disorder F90.9 ; Intermittent explosive disorder F63.81 and Bipolar disorder F31.9 [facility], [place] [address] [facility] [id number] [address] [place] [phone] Oct, [facility], [place] [address] [facility] [id number] [address] [place] [phone] Oct, [facility], [place] [address] [facility] [id number] [address] [place] [phone] Sep, [facility] [place] [address] [facility] [id number] [address] [place] [phone] Aug, [facility], [place] [address] [facility] [id number] [address] [place] [id number] Jul, [facility], [place] [address] [facility] [id number] [address] [place] [phone] Jul, [facility], [place] [address] [facility] [id number] [address] [place] [address] Jul, Anxiety, generalized 300.02 ; Bipolar disorder, unspecified 296.80 ; 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.00 ; 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 and Impulse control disorder, unspecified 312.30 [facility] [place] [address] [id number] [address] [place] [id number] Jul, [facility], [place] [address] [id number] [address] [place] [phone] Jun, [facility], [place] [address] [facility] [id number] [address] [place] [phone] May, [facility], [place] [address] [id number] [address] [place] [phone] Apr, [facility], [place] [address] [id number] [address] [place] [id number] Apr, Bipolar disorder, unspecifie d 296.80 ; Generalized anxiety disorder 300.02 and 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.00 [facility], [place] [address] [facility] [id number] [address] [place] [phone] Apr, [facility], [place] [address] [id number] [address] [place] [phone] March, [facility], [place] [address] [id number] [address] [place] [phone] March, [facility], [place] [address] [facility] [id number] [address] [place] [phone] March, [facility], [place] [address] [id number] [address] [place] [id number] March, [facility], [place] [address] [id number] [address] [place] [phone] Feb, [facility], [place] [address] [id number] [address] [place] [phone] Feb, [facility], [place] [address] [facility] [id number] [address] [place] [phone] Jan, [facility], [place] [address] [id number] [address] [place] [phone] Jan, [facility] [address] [id number] [address] [place] [address], [place] [address] Jan, [facility] [address] [id number] [address] [place] [address], [place] [address] Jan, [facility] [address] [id number] [address] [place] [address], [place] [address] Jan, [facility] [address] [id number] [address] [place] [address], [place] [address] Dec, [facility] [address] [id number] [address] [place] [address], [place] [address] Dec, [facility] [address] [id number] [address] [place] [address], [place] [address] Nov, [facility] [address] [id number] [address] [place] [address], [place] [address] Nov, [facility] [address] [id number] [address] [place] [address], [place] [address] Nov, [facility] [address] [id number] [address] [place] [address], [place] [address] Oct, [facility] [address] [id number] [address] [place] [address], [place] [address] Oct, [facility] [address] [id number] [address] [place] [address], [place] [address] Oct, [facility] [address] [id number] [address] [place] [address], [place] [address] Oct, [facility] [address] [id number] [address] [place] [address], [place] [address] Oct, [facility] [address] [id number] [address] [place] [address], [place] [address] Oct, [facility] [address] [id number] [address] [place] [address], [place] [address] Sep, [facility] [address] [id number] [address] [place] [address], [place] [address] Sep, [facility] [address] [id number] [address] [place] [address], [place] [address] Sep, [facility] [address] [id number] [address] [place] [address], [place] [address] Aug, [facility] [address] [id number] [address] [place] [address], [place] [address] Aug, [facility] [address] [id number] [address] [place] [address], [place] [address] Jul, [facility] [address] [id number] [address] [place] [address], [place] [address] Jul, [facility] [address] [id number] [address] [place] [address], [place] [address] Jun, [facility] [address] [id number] [address] [place] [address], [place] [address] Jun, [facility] [address] [id number] [address] [place] [address], [place] [address] Jun, [facility] [address] [id number] [address] [place] [address], [place] [address] Jun, [facility] [address] [id number] [address] [place] [address], [place] [address] May, [facility] [address] [id number] [address] [place] [address], [place] [address] May, [facility] [address] [id number] [address] [place] [address], [place] [address] May, [facility] [address] [id number] [address] [place] [address], [place] [address] Apr, [facility] [address] [id number] [address] [place] [address], [place] [address] Apr, [facility] [address] [id number] [address] [place] [address], [place] [address] Apr, [facility] [address] [id number] [address] [place] [phone] Apr, [facility] [address] [id number] [facility] [place] [address] March, [facility] [address] [id number] [address] [place] [address], [place] [address] March, [facility] [address] [id number] [address] [place] [address], [place] [address] March, [facility] [address] [id number] [address] [place] [address], [place] [address] March, [facility] [address] [id number] [address] [place] [address], [place] [address] Feb, [facility] [address] [id number] [address] [place] [address], [place] [address] Feb, [facility] [address] [id number] [address] [place] [address], [place] [address] Jan, [facility] [address] [id number] [address] [place] [address], [place] [address] Jan, [facility] [address] [id number] [address] [place] [address], [place] [address] Jan, [facility] [address] [id number] [address] [place] [address], [place] [address] Jan, [facility] [address] [id number] [address] [place] [address], [place] [address] Jan, [facility] [address] [id number] [address] [place] [address], [place] [address] Jan, [facility] [address] [id number] [address] [place] [address], [place] [address] Jan, [facility] [address] [id number] [address] [place] [address], [place] [address] Jan, [facility] [address] [id number] [address] [place] [address], [place] [address] Dec, [facility] [address] [id number] [address] [place] [address], [place] [address] Dec, [facility] [address] [id number] [address] [place] [address], [place] [address] Dec, [facility] [address] [id number] [address] [place] [address], [place] [address] Dec, [facility] [address] [id number] [address] [place] [address], [place] [address] Nov, [facility] [address] [id number] [address] [place] [address], [place] [address] Nov, [facility] [address] [id number] [address] [place] [address], [place] [address] Oct, [facility] [address] [id number] [address] [place] [address], [place] [address] Oct, [facility] [address] [id number] [address] [place] [address], [place] [address] Oct, [facility] [address] [id number] [address] [place] [address], [place] [address] Oct, [facility] [address] [id number] [address] [place] [address], [place] [address] Sep, [facility] [address] [id number] [address] [place] [address], [place] [address] Sep, [facility] [address] [id number] [address] [place] [address], [place] [address] Sep, [facility] [address] [id number] [address] [place] [address], [place] [address] Sep, [facility] [address] [id number] [address] [place] [address], [place] [address] Aug, [facility] [address] [id number] [address] [place] [address], [place] [address] Aug, [facility] [address] [id number] [address] [place] [address], [place] [address] Aug, [facility] [address] [id number] [address] [place] [address], [place] [address] Jul, [facility] [address] [id number] [address] [place] [address], [place] [address] Jul, [facility] [address] [id number] [address] [place] [address], [place] [address] Jun, [facility] [address] [id number] [address] [place] [address], [place] [address] Jun, [facility] [address] [id number] [address] [place] [address], [place] [address] May, [facility] [address] [id number] [address] [place] [address], [place] [address] May, [facility] [address] [id number] [address] [place] [address], [place] [address] Apr, [facility] [address] [id number] [address] [place] [address], [place] [address] March, [facility] [address] [id number] [address] [place] [address], [place] [address] March, [facility] [address] [id number] [address] [place] [address], [place] [address] Feb, [facility] [address] [id number] [address] [place] [address], [place] [address] Jan, [facility] [address] [id number] [address] [place] [address], [place] [address] Jan, [facility] [address] [id number] [address] [place] [address], [place] [address] Dec, [facility] [address] [id number] [address] [place] [address], [place] [address] Dec, [facility] [address] [id number] [address] [place] [address], [place] [address] Nov, [facility] [address] [id number] [address] [place] [address], [place] [address] Nov, [facility] [address] [id number] [address] [place] [address], [place] [address] Nov, [facility] [address] [id number] [address] [place] [address], [place] [address] Nov, [facility] [address] [id number] [address] [place] [address], [place] [address] Nov, [facility] [address] [id number] [address] [place] [address], [place] [address] Oct, [facility] [address] [id number] [address] [place] [address], [place] [address] Oct, [facility] [address] [id number] [address] [place] [address], [place] [address] Oct, [facility] [address] [id number] [address] [place] [address], [place] [address] Oct, [facility] [address] [id number] [address] [place] [address], [place] [address] Oct, [facility] [address] [id number] [address] [place] [address], [place] [address] Oct, [facility] [address] [id number] [address] [place] [address], [place] [address] Oct, [facility] [address] [id number] [address] [place] [address], [place] [address] Oct, [facility] [address] [id number] [address] [place] [address], [place] [address] Sep, [facility] [address] [id number] [address] [place] [address], [place] [address] Sep, [facility] [address] [id number] [address] [place] [address], [place] [address] Sep, [facility] [address] [id number] [address] [place] [address], [place] [address] Aug, [facility] [address] [id number] [address] [place] [address], [place] [id number] 17 Aug, 2012 [facility] [address] [id number] [address] [place] [address], [place] [address] Aug, [facility] [address] [id number] [address] [place] [address], [place] [address] Aug, [facility] [address] [id number] [address] [place] [address], [place] [address] Aug, [facility] [address] [id number] [address] [place] [address], [place] [address] Jul, [facility] [address] [id number] [address] [place] [address], [place] [address] Jul, [facility] [address] [id number] [address] [place] [address], [place] [address] Jun, [facility] [address] [id number] [address] [place] [address], [place] [address] May, [facility] [address] [id number] [address] [place] [address], [place] [address] May, [facility] [address] [id number] [address] [place] [address], [place] [address] Apr, [facility] [address] [id number] [address] [place] [address], [place] [id number] March, [facility] [address] [id number] [address] [place] [address], [place] [address] March, [facility] [address] [id number] [address] [place] [address], [place] [address] March, [facility] [address] [id number] [address] [place] [address], [place] [address] March, [facility] [address] [id number] [address] [place] [address], [place] [address] Feb, [facility] [address] [id number] [address] [place] [phone] 05 Feb, 2012 [facility] [place] [address] [id number] [address] [place] [phone] Jan, [facility] [place] [address] [id number] [address] [place] [id number] 10 Dec, 2011 [facility] [place] [address] [id number] [address] [place] [phone] 08 Dec, 2011 [facility] [place] [address] [id number] [address] [place] [phone] Dec, [facility] [place] [address] [id number] [address] [place] [phone] Nov, [facility] [place] [address] [id number] [address] [place] [id number] Nov, [facility] [place] [address] [id number] [address] [place] [id number] Nov, [facility] [place] [address] [id number] [address] [place] [phone] Oct, [facility] [place] [address] [id number] [address] [place] [phone] Sep, [facility] [place] [address] [id number] [address] [place] [phone] Aug, [facility] [place] [address] [id number] [address] [place] [phone] Aug, [facility] [place] [address] [id number] [address] [place] [phone] May, [facility] [place] [address] [id number] [address] [place] [id number] Sep, [facility] [place] [address] [facility] [id number] [address] [place] [phone] Sep, IMMUNIZATIONS No Known Immunizations SOCIAL HISTORY Never Assessed REASON FOR VISIT wale 06/15/2017 PLAN OF CARE VITAL SIGNS MEDICATIONS Medication Instructions Dosage Frequency Start Date End Date Duration S tatus Vyvanse 70 MG Orally Once a day 1 capsule in the morning 24h May, 30 days Active Adderall 20 mg Orally Once a day 1 tablet at 4 pm 24h May, 30 days Active RESULTS No Results PROCEDURES No Known procedures INSTRUCTIONS MEDICATIONS ADMINISTERED No Known Medications MEDICAL (GENERAL) HISTORY Type Description Date Medical History bipolar Medical History adhd Medical History anxiety
== END 2020-03-18 02:05 | disposition home or self-care (01) ==
LOC: EDUNIT# 23:40 → ER 23:42
DX: R07.89 Other chest pain (principal); M25.511 Pain in right shoulder; M54.6 Pain in thoracic spine; R40.2142 Coma scale, eyes open, spontaneous, at arrival to emergency department; R40.2252 Coma scale, best verbal response, oriented, at arrival to emergency department; R40.2362 Coma scale, best motor response, obeys commands, at arrival to emergency department; F17.210 Nicotine dependence, cigarettes, uncomplicated; V89.2XXA Person injured in unspecified motor-vehicle accident, traffic, initial encounter
CPT/HCPCS: 36415; 70450; 71046; 71260; 72125; 73000; 73030; 74177; 80053; 80306; 80320; 81000; 84484; 85025; 93005; 93041